=== PATIENT | male | born 1950 | race Caucasian/White ===

== ENCOUNTER 2016-05-01 09:25 | Day surgery (SDC) | payer OTHER, MEDICARE ==
[2016-04-24 14:23] VITALS: BMI 32.0
--- NOTE | 2016-04-24 15:02 | PAT Medication Instructions ---
Service Date Apr 24, 2016. Current Home Medication List Amlodipine (Norvasc), 10 MG PO QAM Atorvastatin (Lipitor), 40 MG PO HS Clonidine Hcl (Catapres), 0.2 MG PO TID Furosemide (Lasix), 20 MG PO QAM Insulin Glargine (Lantus Solostar), Unknown Dose SC QPM Insulin Human Lispro (Humalog Kwikpen) Medication Instructions For Your Scheduled Surgery - Hold the following medications the morning of surgery: Furosemide (Lasix), 20 MG PO QAM Insulin Human Lispro (Humalog Kwikpen) - Take the following medications the morning of surgery with a sip of water OTHERWISE NOTHING TO EAT OR DRINK AFTER MIDNIGHT: Clonidine Hcl (Catapres), 0.2 MG PO TID Amlodipine (Norvasc), 10 MG PO QAM - Take the following medications as scheduled the night before surgery: Insulin Glargine (Lantus Solostar), Unknown Dose SC QPM Clonidine Hcl (Catapres), 0.2 MG PO TID Atorvastatin (Lipitor), 40 MG PO HS If you have any questions please call us at [phone] or [phone] or [phone]
[2016-04-24 15:35] LABS: BASO % 0.3 %; BASO ABS # 0.02 K/uL (0-0.2); COMPLETE YES; EOS % 1.7 %; HEMATOCRIT 33.6 % (42-52); IG% 0.2 %; LYMPH % 29.9 %; LYMPH ABS # 1.91 K/uL (1.2-3.4); MEAN CELL VOLUME 81.8 fL (80-100); MEAN CORPUSCULAR HEMOGLOBIN 27.3 pg (25-34); MEAN CORPUSCULAR HGB CONC 33.3 g/dl (32-36); MONO % 5.6 %; NEUT % 62.3 %; PLATELET COUNT 192 K/uL (130-400); RED BLOOD COUNT 4.11 M/uL (4.7-6.1); WHITE BLOOD COUNT 6.38 K/uL (4.8-10.8)
--- NOTE | 2016-04-24 15:35 | DIAGNOSTIC IMAGING REPORT ---
CHEST 2 VIEWS ROUTINE CLINICAL HISTORY: Preoperative chest COMPARISON STUDY: No previous studies for comparison. FINDINGS: The heart is the upper limits of normal in size. There is no failure. There is no focal pulmonary consolidation. There are degenerative changes present within the dorsal spine with bridging anterior osteophytes.[ IMPRESSION: No active disease in the chest. Electronically signed by: Kar Weeks M.D. 04/24/2016 3:33 PM Dictated Date/Time: 04/24/2016 3:33 PM
[2016-04-24 16:07] LABS: BUN/CREATININE RATIO 21.7 (10-20); CALCIUM 9.1 mg/dl (8.5-10.1); POTASSIUM 5.2 mmol/L (3.5-5.1)
[~2016-05-01] VITALS: Ht 180.3 cm; Wt 106.3 kg
--- NOTE | 2016-05-01 08:25 | History and Physical ---
History & Physical CC: End stage renal disease HPI: Mr. Blue is a 65-year-old gentleman with end-stage renal disease. He is not on dialysis yet, but it is approaching GFR level where he may require dialysis in the near future. He is here for evaluation for a fistula. ALLERGIES: None known. MEDICATIONS: Amlodipine, atorvastatin, clonidine, furosemide, and Lantus insulin. PAST MEDICAL HISTORY: Positive for hypertension, diabetes and circulatory disease. PREVIOUS SURGERIES: None listed. FAMILY HISTORY: Positive for cancer. SOCIAL HISTORY: He does not smoke. He drinks occasionally. REVIEW OF SYSTEMS: Ten systems were reviewed. He did not have any positive findings other than occasional burning in his legs and poor wound healing. He also complained of numbness and tingling in his fingers of both hands. PHYSICAL EXAMINATION: The patient is awake, oriented x3. His blood pressure is 176/56 in the right, 178/58 in the left. Head and neck within normal limits. There are no carotid bruits. Lungs are clear. Heart regular rate and rhythm. Abdominal exam is benign. Vascular exam is his radials, carotids, and superficial temporal artery pulses are +2 bilaterally. Femorals are +2. Examination of the upper extremities shows the cephalic vein in the left arm which can be seen down to the wrist. Definitely just above the wrist this vein is usable for a fistula. At the wrist it is questionable. Neurologic exam is intact to motor and sensory function. IMPRESSION: Endstage renal disease. PLAN AND RECOMMENDATIONS: Patient is admitted for creation of a left distal forearm fistula. I have discussed the risks options and benefits of the procedure with the patient. The patient understands the risks options and benefits and agrees to the procedure.
[~2016-05-01 09:25] MED LIST: AMLO-114 PO; ATOR-24 PO; CEFAZOLIN 2000 MG/60 ML D5W IV SCH; CLON0.2T PO; FURO-85 PO; HMLIS; INSDGIPEN SC; SODIUM CHLORIDE 0.9% 1000ML 1,000 ML IV SCH
[2016-05-01 09:40] VITALS: BP 188/65; PULSE 55; TEMP 36.6; O2SAT 99; Ht 180.3 cm; Wt 106.3 kg
[2016-05-01 10:49] LABS: BUN/CREATININE RATIO 17.4 (10-20); CALCIUM 8.9 mg/dl (8.5-10.1); CREATININE 3.3 mg/dl (0.60-1.40)
--- NOTE | 2016-05-01 12:20 | History & Physical Bridge Note ---
H&P Re-Evaluation Bridge Note: I have examined the patient, reviewed the History & Physical and in the interval since the performance of the History & Physical I have noted the following changes of clinical significance: No changes noted
[2016-05-01] MEDS ORDERED: FENTANYL CITRATE INJ 50 MCG/1 ML 2 ML VIAL ONE (12:43)
[2016-05-01] MEDS ORDERED: PROPOFOL IV EMULSION 10 MG/ML 20 ML VIAL IV ONE (12:43)
[2016-05-01] MEDS ORDERED: LIDOCAINE HCL 2% 2 ML VIAL (20MG/ML) ONE (12:43)
[2016-05-01] MEDS ORDERED: MIDAZOLAM HCL 1 MG/ML 2ML VIAL ONE ×2 (12:43→13:00)
[2016-05-01] MEDS ORDERED: MIX: 0.5% BUPIVACAINE W/EPI 1:200,000+1%LIDO 50:50 INJ ONE (13:35)
[2016-05-01] MEDS ORDERED: HEPARIN SOD (PORCINE) 1000 UNIT/ML 10 ML VIAL FLUSH ONE (13:35)
--- NOTE | 2016-05-01 13:40 | [facility] Post Operative Brief Note ---
Immediate Operative Summary Operative Date May 01, 2016. Pre-Operative Diagnosis Endstage renal disease Post-Operative Diagnosis Endstage renal disease Procedure(s) Performed Left Distal Forearm Arteriovenous Fistula Creation Surgeon Dr. Jadon Edmonds Autocad Detailer Surgeon(s) Gabrielle Ospina PA-C Estimated Blood Loss 5ml Findings good thrill Specimens none per surgeon Anesthesia MAC Complication(s) None Disposition Recovery Room / PACU
[2016-05-01] MEDS ORDERED: OXYC-57 PO (13:41)
--- NOTE | 2016-05-01 13:43 | Discharge Instructions ---
Discharge Instructions Visit Reason for Visit: End Stage Renal Disease Discharge Discharge Diagnosis / Problem: End stage renal disease Discharge Goals Goal(s): Therapeutic intervention Activity Recommendations Activity Limitations: per Instructions/Follow-up section Anesthesia . Post Anesthesia Instructions: If you have had General Anesthesia or IV Sedation: * Do not drive today. * Resume driving when surgeon permits. * Do not make important decisions or sign legal documents today. * Call surgeon for: 1. Temperature elevations greater than 101 degrees F. 2. Uncontrollable pain. 3. Excessive bleeding. 4. Persistent nausea and vomiting. 5. Medication intolerance (nausea, vomiting or rash). * For nausea and vomiting use only clear liquids such as: tea, soda, bouillon until nausea subsides, then gradually increase diet as tolerated. * If you have any concerns or questions, call your surgeon's office. If physician is unavailable and it is an emergency, call 911 or go to the nearest emergency room. . Instructions / Follow-Up Instructions / Follow-Up Call [phone] to schedule a follow up appointment if one not already scheduled. ACTIVITY RECOMMENDATIONS: See Above SPECIAL CARE INSTRUCTIONS: Call your doctor if: * Temperature above 101 degrees * Pain not relieved by pain medicine ordered * There is increased drainage or redness from any incision * You have any unanswered questions or concerns. Diet Recommendations Recommended Home Diet: resume previous diet Procedures Procedures Performed: Left Distal Forearm Arteriovenous Fistula Creation Pending Studies Studies pending at discharge: no Medical Emergencies . Who to Call and When: Medical Emergencies: If at any time you feel your situation is an emergency, please call 911 immediately. . Non-Emergent Contact Non-Emergency issues call your: Surgeon . . "Provider Documentation" section prepared by Jadon Edmonds.
--- NOTE | 2016-05-01 13:56 | Progress Note ---
Progress Note I assisted Dr Edmonds with Rey Bleu's Left Distal Forearm Arteriovenous Fistula Creation on 05/01/16, d/t lack of resident availability.
--- NOTE | 2016-05-01 14:11 | Anesthesiology Progress Note ---
Anesthesia Post Op Note Date & Time May 01, 2016 at 14:11 Vital Signs Pain Intensity: 0 Vital Signs Past 12 Hours Date Time Temp Pulse Resp B/P Pulse Ox O2 Delivery O2 Flow Rate FiO2 05/01/16 14:05 52 16 147/64 98 Room Air 05/01/16 13:55 52 16 145/58 98 Room Air 05/01/16 13:52 36.9 53 16 137/58 97 Room Air 05/01/16 09:40 36.6 55 18 188/65 99 Room Air Notes Mental Status: alert / awake / arousable, participated in evaluation Pt Amnestic to Procedure: Yes Nausea / Vomiting: adequately controlled Pain: adequately controlled Airway Patency, RR, SpO2: stable & adequate BP & HR: stable & adequate Hydration State: stable & adequate Anesthetic Complications: no major complications apparent
[2016-05-01 14:15] VITALS: BP 154/61; PULSE 50; TEMP 36.8; O2SAT 98
--- NOTE | 2016-05-01 14:55 | OPERATIVE REPORT ---
DATE OF OPERATION: 05/01/2016 PREOPERATIVE DIAGNOSIS: End-stage renal disease. POSTOPERATIVE DIAGNOSIS: Same. PROCEDURE: Left mid forearm AV fistula creation. SURGEON: Dr. Edmonds. ASSEMBLER SEAT: Gabrielle Ospina PA-C. ANESTHETIC: MAC. PROCEDURE INDICATIONS: The patient is a 65-year-old gentleman with end-stage renal disease in need of an access. He has a cephalic vein in the left arm, which is good down at the mid portion. The midforearm AV fistula was recommended. He understood the risks, options and benefits and agreed to have this procedure. The patient was taken to the operating room and placed in supine position. After the left arm was prepped and draped in a sterile manner, local anesthetic was administered. A longitudinal incision was made over the cephalic vein. This was of good caliber down to the mid to distal third of the arm. This was freed up for the length of the incision. Side branches were divided. The distal end was divided and the proximal up to vein clamp. The radial artery was then identified. It was freed up for the length of the incision. After control was obtained, it was clamped proximally and distally. Longitudinal arteriotomy was then made. The vein was then beveled and end-to-side anastomosis was accomplished using a 6-0 Prolene suture in the usual vascular fashion. Prior to completing the closure, backbleeding and forward bleeding was allowed to occur. Final few sutures were then placed and securely tied. Clamps were removed. Excellent flow was felt through the fistula with a good thrill felt. Adequate hemostasis was then obtained. Once adequate hemostasis was noted, the wound was closed in the usual fashion using running 3-0 Vicryl for the subcutaneous layer and a running 4-0 subcuticular Vicryl suture for the skin edges. Dermabond was used for dressing. The patient left the operating room in good condition and tolerated the procedure well. Gabrielle Ospina assisted due to lack of resident availability. I attest to the content of the Intraoperative Record and any orders documented therein. Any exceptio ns are noted below.
== END 2016-05-01 15:20 | disposition home or self-care (01) ==
LOC: C.ACU 09:25
PROVIDERS: ATTEND Surgery Vascular Surgery
DX: N18.6 End stage renal disease (principal); I12.0 Hypertensive chronic kidney disease with stage 5 chronic kidney disease or end stage renal disease; I99.9 Unspecified disorder of circulatory system; Z80.8 Family history of malignant neoplasm of other organs or systems; E11.9 Type 2 diabetes mellitus without complications

== ENCOUNTER → 2016-05-03 | Outpatient (CLI) | payer OTHER, MEDICARE ==
[~2016-05-03] MED LIST changes: -CEFAZOLIN 2000 MG/60 ML D5W IV SCH; +OXYC-57 PO; -SODIUM CHLORIDE 0.9% 1000ML 1,000 ML IV SCH
[2016-05-03 17:34] LABS: HEMATOCRIT 31.7 % (42-52); MEAN CELL VOLUME 83.9 fL (80-100); MEAN CORPUSCULAR HEMOGLOBIN 27.5 pg (25-34); MEAN CORPUSCULAR HGB CONC 32.8 g/dl (32-36); MEAN PLATELET VOLUME 10.8 fL (7.4-10.4); PLATELET COUNT 185 K/uL (130-400); RED BLOOD COUNT 3.78 M/uL (4.7-6.1); WHITE BLOOD COUNT 6.25 K/uL (4.8-10.8)
[2016-05-03 18:19] LABS: BLOOD UREA NITROGEN 50 mg/dl (7-18); BUN/CREATININE RATIO 15.7 (10-20); CALCIUM 8.4 mg/dl (8.5-10.1); CARBON DIOXIDE 19 mmol/L (21-32); CHLORIDE 110 mmol/L (98-107); GLUCOSE 129 mg/dl (70-99); PHOSPHORUS 4.7 mg/dl (2.5-4.9); POTASSIUM 4.7 mmol/L (3.5-5.1); SODIUM 141 mmol/L (136-145)
== END | disposition home or self-care (01) ==
LOC: C.LABBFT 11:43
PROVIDERS: ATTEND Internal Medicine Nephrology
DX: I12.9 Hypertensive chronic kidney disease with stage 1 through stage 4 chronic kidney disease, or unspecified chronic kidney disease (principal); E55.9 Vitamin D deficiency, unspecified; N18.4 Chronic kidney disease, stage 4 (severe); R60.9 Edema, unspecified

== ENCOUNTER → 2016-06-26 | Outpatient (CLI) | payer OTHER, MEDICARE ==
[2016-06-26 12:40] LABS: HEMATOCRIT 32.5 % (42-52); MEAN CELL VOLUME 81.5 fL (80-100); MEAN CORPUSCULAR HEMOGLOBIN 26.8 pg (25-34); MEAN CORPUSCULAR HGB CONC 32.9 g/dl (32-36); MEAN PLATELET VOLUME 10.6 fL (7.4-10.4); PLATELET COUNT 195 K/uL (130-400); RED BLOOD COUNT 3.99 M/uL (4.7-6.1); WHITE BLOOD COUNT 5.82 K/uL (4.8-10.8)
[2016-06-26 12:59] LABS: BLOOD UREA NITROGEN 79 mg/dl (7-18); BUN/CREATININE RATIO 18.8 (10-20); CALCIUM 8.8 mg/dl (8.5-10.1); CARBON DIOXIDE 24 mmol/L (21-32); CHLORIDE 111 mmol/L (98-107); GLUCOSE 116 mg/dl (70-99); PHOSPHORUS 5.1 mg/dl (2.5-4.9); POTASSIUM 5.2 mmol/L (3.5-5.1); SODIUM 141 mmol/L (136-145)
[2016-06-26 13:01] LABS: ESTIMATED AVERAGE GLUCOSE 140 mg/dl; HA1C FLAG Normal (Normal)
[2016-06-26 17:40] LABS: URINE APPEARANCE CLEAR (CLEAR); URINE BILIRUBIN NEG (NEG); URINE COLOR YELLOW; URINE EPITHELIAL CELL AUTO >30 /lpf (0-5); URINE NITRITE NEG (NEG); URINE SPECIFIC GRAVITY 1.017 (1.000-1.030); UROBILINOGEN NEG (NEG)
[2016-06-26 17:54] LABS: MANUAL MICROSCOPIC REQUIRED? NO; REVIEW REQ? YES
[2016-06-26 18:08] LABS: URINE PROTIEN/CREAT RATIO 3.8 (0-0.2)
== END | disposition home or self-care (01) ==
LOC: C.LABBFT 10:48
PROVIDERS: ATTEND Internal Medicine Nephrology
DX: E11.22 Type 2 diabetes mellitus with diabetic chronic kidney disease (principal); I12.9 Hypertensive chronic kidney disease with stage 1 through stage 4 chronic kidney disease, or unspecified chronic kidney disease; E55.9 Vitamin D deficiency, unspecified; N18.4 Chronic kidney disease, stage 4 (severe); R60.9 Edema, unspecified

== ENCOUNTER → 2016-07-22 | Outpatient (CLI) | payer OTHER, MEDICARE ==
[2016-07-22 11:56] LABS: PATIENT HEIGHT 180.3 cm
[2016-07-22 17:38] LABS: HEMATOCRIT 32.8 % (42-52); MEAN CELL VOLUME 85.6 fL (80-100); MEAN CORPUSCULAR HEMOGLOBIN 27.9 pg (25-34); MEAN CORPUSCULAR HGB CONC 32.6 g/dl (32-36); MEAN PLATELET VOLUME 10.9 fL (7.4-10.4); PLATELET COUNT 211 K/uL (130-400); RED BLOOD COUNT 3.83 M/uL (4.7-6.1); WHITE BLOOD COUNT 5.95 K/uL (4.8-10.8)
[2016-07-22 17:53] LABS: URINE APPEARANCE CLEAR (CLEAR); URINE BILIRUBIN NEG (NEG); URINE COLOR YELLOW; URINE NITRITE NEG (NEG); URINE SPECIFIC GRAVITY 1.014 (1.000-1.030); UROBILINOGEN NEG (NEG)
[2016-07-22 17:58] LABS: MANUAL MICROSCOPIC REQUIRED? NO; REVIEW REQ? NO
[2016-07-22 18:50] LABS: BLOOD UREA NITROGEN 70 mg/dl (7-18); BUN/CREATININE RATIO 17.9 (10-20); CALCIUM 8.5 mg/dl (8.5-10.1); CARBON DIOXIDE 24 mmol/L (21-32); CHLORIDE 110 mmol/L (98-107); GLUCOSE 141 mg/dl (70-99); SODIUM 141 mmol/L (136-145)
[2016-07-22 19:02] LABS: BLOOD UREA NITROGEN 72 mg/dl (7-18); BUN/CREATININE RATIO 18.9 (10-20); CALCIUM 8.9 mg/dl (8.5-10.1); CARBON DIOXIDE 22 mmol/L (21-32); CHLORIDE 110 mmol/L (98-107); GLUCOSE 144 mg/dl (70-99); PHOSPHORUS 4.4 mg/dl (2.5-4.9); SODIUM 141 mmol/L (136-145)
[2016-07-22 20:11] LABS: HEPATITIS B AB NEG
[2016-07-22 20:18] LABS: CREATININE 3.9 mg/dl (0.6-1.4)
[2016-07-22 20:32] LABS: URINE TOTAL PROTEIN 259.4 mg/dl (0-11.9)
[2016-07-22 20:40] LABS: URINE TOTAL PROTEIN CALC 5966.2 mg/24 hr (0-149.1)
== END | disposition home or self-care (01) ==
LOC: C.LABBFT 11:41
PROVIDERS: ATTEND Internal Medicine Nephrology
DX: E55.9 Vitamin D deficiency, unspecified (principal); N18.4 Chronic kidney disease, stage 4 (severe); R60.9 Edema, unspecified; I12.9 Hypertensive chronic kidney disease with stage 1 through stage 4 chronic kidney disease, or unspecified chronic kidney disease

== ENCOUNTER → 2016-09-13 | Outpatient (CLI) | payer OTHER, MEDICARE ==
[2016-09-13 12:04] LABS: HEMATOCRIT 36.2 % (42-52); MEAN CELL VOLUME 85.4 fL (80-100); MEAN CORPUSCULAR HEMOGLOBIN 26.4 pg (25-34); MEAN CORPUSCULAR HGB CONC 30.9 g/dl (32-36); PLATELET COUNT 175 K/uL (130-400); RED BLOOD COUNT 4.24 M/uL (4.7-6.1); WHITE BLOOD COUNT 6.64 K/uL (4.8-10.8)
[2016-09-13 12:25] LABS: URINE APPEARANCE CLEAR (CLEAR); URINE BILIRUBIN NEG (NEG); URINE COLOR YELLOW; URINE EPITHELIAL CELL AUTO 20-30 /lpf (0-5); URINE NITRITE NEG (NEG); URINE SPECIFIC GRAVITY 1.018 (1.000-1.030); UROBILINOGEN NEG (NEG)
[2016-09-13 12:28] LABS: URINE PROTIEN/CREAT RATIO 3.4 (0-0.2); URINE TOTAL PROTEIN 263.7 mg/dl (0-11.9)
[2016-09-13 12:30] LABS: REVIEW REQ? YES
[2016-09-13 12:31] LABS: MANUAL MICROSCOPIC REQUIRED? NO
[2016-09-13 12:33] LABS: CALCIUM 8.8 mg/dl (8.5-10.1)
[2016-09-13 12:35] LABS: BLOOD UREA NITROGEN 63 mg/dl (7-18); BUN/CREATININE RATIO 19.1 (10-20); CARBON DIOXIDE 19 mmol/L (21-32); CHLORIDE 113 mmol/L (98-107); GLUCOSE 118 mg/dl (70-99); POTASSIUM 5.2 mmol/L (3.5-5.1); SODIUM 141 mmol/L (136-145)
[2016-09-13 12:36] LABS: PHOSPHORUS 4.6 mg/dl (2.5-4.9)
[2016-09-13 12:51] LABS: URINE PATH CASTS 0-3 GRANULAR CASTS /lpf (0)
== END | disposition home or self-care (01) ==
LOC: C.LABBFT 08:58
PROVIDERS: ATTEND Internal Medicine Nephrology
DX: I12.9 Hypertensive chronic kidney disease with stage 1 through stage 4 chronic kidney disease, or unspecified chronic kidney disease (principal); E55.9 Vitamin D deficiency, unspecified; R60.9 Edema, unspecified; N18.4 Chronic kidney disease, stage 4 (severe)

== ENCOUNTER → 2016-12-27 | Outpatient (CLI) | payer OTHER, MEDICARE ==
[~2016-12-27] MED LIST changes: -OXYC-57 PO
[2016-12-27 10:31] LABS: HEMATOCRIT 36.5 % (42-52); MEAN CELL VOLUME 85.7 fL (80-100); MEAN CORPUSCULAR HEMOGLOBIN 26.5 pg (25-34); MEAN PLATELET VOLUME 10.8 fL (7.4-10.4); PLATELET COUNT 187 K/uL (130-400); RED BLOOD COUNT 4.26 M/uL (4.7-6.1); WHITE BLOOD COUNT 6.18 K/uL (4.8-10.8)
[2016-12-27 10:42] LABS: ALT/SGPT 14 U/L (12-78); AST/SGOT 16 U/L (15-37); BLOOD UREA NITROGEN 58 mg/dl (7-18); CALCIUM 8.6 mg/dl (8.5-10.1); CARBON DIOXIDE 23 mmol/L (21-32); CHLORIDE 114 mmol/L (98-107); GLUCOSE 106 mg/dl (70-99); POTASSIUM 4.4 mmol/L (3.5-5.1); SODIUM 144 mmol/L (136-145)
[2016-12-27 10:45] LABS: ALB/GLOB RATIO 0.9 (0.9-2); ALKALINE PHOSPHATASE 98 U/L (45-117); CHOLESTEROL 139 mg/dl (0-200); CHOLESTEROL/HDL RATIO 3.4; HDL CHOLESTEROL 41 mg/dl; LDL CHOLESTEROL CALCULATED 80 mg/dl; TRIGLYCERIDES 90 mg/dl (0-150); VERY LOW DENSITY LIPOPROT CALC 18 mg/dl
[2016-12-27 10:56] LABS: ESTIMATED AVERAGE GLUCOSE 123 mg/dl; HA1C FLAG Normal (Normal)
== END | disposition home or self-care (01) ==
LOC: C.LAB1850 09:33
PROVIDERS: ATTEND Internal Medicine Nephrology
DX: E11.22 Type 2 diabetes mellitus with diabetic chronic kidney disease (principal); I12.9 Hypertensive chronic kidney disease with stage 1 through stage 4 chronic kidney disease, or unspecified chronic kidney disease; E55.9 Vitamin D deficiency, unspecified; N18.4 Chronic kidney disease, stage 4 (severe); R60.9 Edema, unspecified; E78.00 Pure hypercholesterolemia, unspecified; E53.8 Deficiency of other specified B group vitamins

== ENCOUNTER → 2017-03-26 | Outpatient (CLI) | payer OTHER, MEDICARE ==
[~2017-03-26] MED LIST changes: -AMLO-114 PO; +AMLO10TA3 PO; +ERGO500037 PO; -HMLIS; +HMLIS SQ; +LABE1TAB28 PO; +LISI-725 PO; +OXYC-90 PO
[2017-03-26 17:26] LABS: HEMATOCRIT 35.6 % (42-52); HEMOGLOBIN 11.3 g/dL (14.0-18.0); MEAN CELL VOLUME 86.2 fL (80-100); MEAN CORPUSCULAR HEMOGLOBIN 27.4 pg (25-34); MEAN CORPUSCULAR HGB CONC 31.7 g/dl (32-36); MEAN PLATELET VOLUME 11.6 fL (7.4-10.4); PLATELET COUNT 196 K/uL (130-400); RED CELL DISTRIBUTION WIDTH CV 14.3 % (11.5-14.5); WHITE BLOOD COUNT 6.04 K/uL (4.8-10.8)
[2017-03-26 17:37] LABS: ALBUMIN 3.3 gm/dl (3.4-5.0); BLOOD UREA NITROGEN 70 mg/dl (7-18); CALCIUM 8.5 mg/dl (8.5-10.1); CARBON DIOXIDE 21 mmol/L (21-32); CREATININE 3.81 mg/dl (0.60-1.40); GLUCOSE 148 mg/dl (70-99); POTASSIUM 4.6 mmol/L (3.5-5.1); SODIUM 143 mmol/L (136-145)
[2017-03-27 04:56] LABS: HEMOGLOBIN A1C 6.1 % (4.5-5.6)
== END | disposition home or self-care (01) ==
LOC: C.LABBFT 13:53
PROVIDERS: ATTEND Internal Medicine Nephrology
DX: I12.9 Hypertensive chronic kidney disease with stage 1 through stage 4 chronic kidney disease, or unspecified chronic kidney disease (principal); N18.4 Chronic kidney disease, stage 4 (severe); E55.9 Vitamin D deficiency, unspecified; R60.9 Edema, unspecified; E11.9 Type 2 diabetes mellitus without complications

== ENCOUNTER → 2017-03-28 | Outpatient (CLI) | payer OTHER, MEDICARE | END | disposition home or self-care (01) | LOC: C.LABBFT 14:04 | PROVIDERS: ATTEND Internal Medicine Nephrology | DX: R60.9 Edema, unspecified (principal); I12.9 Hypertensive chronic kidney disease with stage 1 through stage 4 chronic kidney disease, or unspecified chronic kidney disease; N18.4 Chronic kidney disease, stage 4 (severe); E55.9 Vitamin D deficiency, unspecified ==

== ENCOUNTER 2017-04-02 18:39 | Emergency (ER) | payer MEDICARE, OTHER ==
[~2017-04-02] VITALS: Ht 180.3 cm; Wt 102.9 kg
[~2017-04-02 18:39] MED LIST changes: -ERGO500037 PO; -LABE1TAB28 PO; -LISI-725 PO; -OXYC-90 PO
[2017-04-02 18:50] VITALS: TEMP 36.9; Ht 180.3 cm; Wt 102.9 kg
[2017-04-02] MEDS ORDERED: OXYCODONE HCL IR 5 MG TAB (IMMEDIATE RELEASE) PO STA (19:04)
--- NOTE | 2017-04-02 20:12 | EMERGENCY ROOM VISIT NOTE ---
ED Visit Note First contact with patient: 18:53 This Patient was discussed with the physician Machining Technician, FATMATA Esquivel. The pertinent historical and physical exam findings were confirmed. I agree with the studies ordered and with the interpretations of these studies. I agree with the disposition and care plan.
[2017-04-02] MEDS ORDERED: OXYCODONE IR HOME PACK PO ONE (20:15)
--- NOTE | 2017-04-02 20:15 | DIAGNOSTIC IMAGING REPORT ---
L SHOULDER MIN 2 VIEWS ROUTINE CLINICAL HISTORY: 66 years-old Male presenting with L shoulder pain. TECHNIQUE: Internal rotation, external rotation, and Grashey views of the left shoulder were obtained. COMPARISON: None. FINDINGS: Comminuted fracture of the surgical neck of the left humerus. This results in fragmentation of the greater tuberosity and potentially also the lesser tuberosity. There is impaction of the proximal metaphysis into the humeral head, which appears to largely remaining congruent at the glenohumeral joint. IMPRESSION: Comminuted impaction fracture of the surgical neck of the left humerus. Electronically signed by: Sylvester Galeano M.D. 04/02/2017 8:14 PM Dictated Date/Time: 04/02/2017 8:12 PM
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
[2017-04-02] MEDS ORDERED: OXYC-90 PO (20:25)
[2017-04-02 20:30] VITALS: BP 167/67; PULSE 52; O2SAT 97
[2017-07-22] MEDS ORDERED: LISI-725 PO (13:04)
[2017-07-22] MEDS ORDERED: ERGO500037 PO (13:07)
[2017-07-22] MEDS ORDERED: LABE1TAB28 PO ×2 (13:07→19:13)
[2017-07-24] MEDS ORDERED: LABE1TAB28 PO (08:03)
== END 2017-04-02 20:27 | disposition home or self-care (01) ==
LOC: C.EDB 18:40 → C.EDD 20:27
DX: S42.292A Other displaced fracture of upper end of left humerus, initial encounter for closed fracture (principal); V89.2XXA Person injured in unspecified motor-vehicle accident, traffic, initial encounter; Y92.410 Unspecified street and highway as the place of occurrence of the external cause; R03.0 Elevated blood-pressure reading, without diagnosis of hypertension

== ENCOUNTER → 2017-04-24 | Outpatient (CLI) | payer OTHER ==
[~2017-04-24] MED LIST changes: +AMLO-114 PO; -AMLO10TA3 PO; +HMLIS; -HMLIS SQ; +OXYC1TAB3 PO
--- NOTE | 2017-04-24 09:02 | DIAGNOSTIC IMAGING REPORT ---
L SHOULDER MIN 2 VIEWS CLINICAL HISTORY: 3-PART FRACTURE OF SURGICAL NECK OF LEFT HUMERUS COMPARISON: Left shoulder radiographs April 02, 2017. FINDINGS: Note is made of partial interval healing of the left humeral neck fracture which extends into the left humeral head. Fracture is impacted. Fracture impaction appears diminished since prior exam of April 02, 2017. Callus formation is noted. Fracture lines remain evident. Alignment of the left glenohumeral joint remains anatomic. Angulation at the level of the fracture is again noted. Alignment of the left acromioclavicular joint is anatomic. There is moderate to severe left AC joint arthrosis. IMPRESSION: Partial interval healing of the left humeral neck fracture since exam of April 02, 2017. Fracture impaction appears diminished since prior exam. Electronically signed by: Sukhi Bryant M.D. 04/24/2017 9:01 AM Dictated Date/Time: 04/24/2017 8:58 AM
== END | disposition home or self-care (01) ==
LOC: C.RDSM 08:50
PROVIDERS: ATTEND Physician Assistant
DX: S42.232D 3-part fracture of surgical neck of left humerus, subsequent encounter for fracture with routine healing (principal); X58.XXXD Exposure to other specified factors, subsequent encounter

== ENCOUNTER → 2017-05-14 | Outpatient (CLI) | payer OTHER, MEDICARE ==
--- NOTE | 2017-05-14 09:10 | DIAGNOSTIC IMAGING REPORT ---
L SHOULDER MIN 2 VIEWS CLINICAL HISTORY: 3-PART FRACTURE OF SURGICAL NECK OF LEFT HUMERUS COMPARISON: Shoulder radiographs April 02, 2017 and April 24, 2017. FINDINGS: Note is again made of a displaced impacted left humeral neck fracture which extends into the humeral head. Fracture alignment is unchanged since exam of April 24, 2017. Extensive callus formation is noted. Fracture line remains evident. Alignment of the left acromioclavicular and glenohumeral joints is anatomic. IMPRESSION: Partial interval healing of the left humeral neck fracture since previous exam. No change in alignment. Extensive callus formation. Electronically signed by: Sukhi Bryant M.D. 05/14/2017 9:08 AM Dictated Date/Time: 05/14/2017 9:03 AM
== END | disposition home or self-care (01) ==
LOC: C.RDSM 09:00
PROVIDERS: ATTEND Physician Assistant
DX: S42.232A 3-part fracture of surgical neck of left humerus, initial encounter for closed fracture (principal); X58.XXXA Exposure to other specified factors, initial encounter

== ENCOUNTER → 2017-06-13 | Outpatient (CLI) | payer OTHER, MEDICARE ==
[2017-06-13 12:50] LABS: HEMATOCRIT 29.6 % (42-52); HEMOGLOBIN 9.3 g/dL (14.0-18.0); MEAN CELL VOLUME 86.8 fL (80-100); MEAN CORPUSCULAR HEMOGLOBIN 27.3 pg (25-34); MEAN CORPUSCULAR HGB CONC 31.4 g/dl (32-36); MEAN PLATELET VOLUME 10.9 fL (7.4-10.4); PLATELET COUNT 173 K/uL (130-400); RED CELL DISTRIBUTION WIDTH CV 14.8 % (11.5-14.5); RED CELL DISTRIBUTION WIDTH SD 47.3 fL (36.4-46.3); WHITE BLOOD COUNT 6.04 K/uL (4.8-10.8)
[2017-06-13 14:02] LABS: BLOOD UREA NITROGEN 76 mg/dl (7-18); CALCIUM 8.5 mg/dl (8.5-10.1); CARBON DIOXIDE 21 mmol/L (21-32); CREATININE 3.73 mg/dl (0.60-1.40); GLUCOSE 109 mg/dl (70-99); POTASSIUM 5.3 mmol/L (3.5-5.1); SODIUM 141 mmol/L (136-145)
== END | disposition home or self-care (01) ==
LOC: C.LABBFT 10:45
PROVIDERS: ATTEND Internal Medicine Nephrology
DX: R60.9 Edema, unspecified (principal); N18.4 Chronic kidney disease, stage 4 (severe); I12.9 Hypertensive chronic kidney disease with stage 1 through stage 4 chronic kidney disease, or unspecified chronic kidney disease; E55.9 Vitamin D deficiency, unspecified; E11.9 Type 2 diabetes mellitus without complications

== ENCOUNTER → 2017-06-25 | Outpatient (CLI) | payer OTHER, MEDICARE ==
--- NOTE | 2017-06-25 10:14 | DIAGNOSTIC IMAGING REPORT ---
LEFT SHOULDER 4 VIEWS CLINICAL HISTORY: Left shoulder pain. Healing fracture. FINDINGS: 4 views of the left shoulder are compared to studies dated 05/14/2017 and 04/02/2017. The skeletal structures are osteopenic. There is a healing impacted and comminuted fracture through the left humeral head and neck. This is similar appearance to the 05/14/2017 examination. Residual fracture lucency is identified. No new fracture is seen. Mild inferior subluxation of the humeral head is similar to previous. Productive degenerative change is noted at acromioclavicular joint. The visualized left upper lobe lung parenchyma appears clear. IMPRESSION: No significant change in the appearance of a healing left humeral head and neck fracture as above as compared to 05/14/2017. Electronically signed by: Federico Basilio M.D. 06/25/2017 10:12 AM Dictated Date/Time: 06/25/2017 10:11 AM
== END | disposition home or self-care (01) ==
LOC: C.RDSM 15:53
PROVIDERS: ATTEND Physician Assistant
DX: S42.232A 3-part fracture of surgical neck of left humerus, initial encounter for closed fracture (principal); X58.XXXA Exposure to other specified factors, initial encounter

== ENCOUNTER 2017-07-22 16:18 | Emergency (ER) | payer OTHER, MEDICARE ==
[~2017-07-22] VITALS: Ht 177.8 cm; Wt 5.0 kg
[~2017-07-22 16:18] MED LIST changes: +ERGO500037 PO; -HMLIS; +HMLIS SQ; +LABE1TAB28 PO; +LISI-725 PO
[2017-07-22 16:39] VITALS: TEMP 36.6; Ht 177.8 cm; Wt 5.0 kg
[2017-07-22] MEDS ORDERED: LABE1TAB28 PO (19:13)
--- NOTE | 2017-07-22 19:13 | EMERGENCY ROOM VISIT NOTE ---
History Report prepared by Luly: Shawn Gomez Under the Supervision of: Dr. Ángel Morrison M.D. First contact with patient: 18:05 Chief Complaint: HYPERTENSION Stated Complaint: ELEVATED BP History of Present Illness The patient is a 66 year old white male with a past medical history of ESRD, HTN , Type 2 diabetes who presents to the ED with a cc of constant hypertension. He was seen at the [facility] for an iron infusion today and was found to be hypertensive. His systolic blood pressure was found to be 210. Patient was given anti-hypertensive medication to lower his blood pressure at the [facility] which has helped. He denies any missed doses of his blood pressure medication. Negative: headache, chest pain, nausea, or vomiting. Patient had a fistula placed recently, and is scheduled to start dialysis soon. Source of History: patient Onset: Today Quality: other (hypertension) Timing: constant Modifying Factors (Relieving): other (anti-hypertensive medications) Associated Symptoms: No headache, No chest pain, No nausea, No vomiting Review of Systems See HPI for pertinent positives and negatives. A total of ten systems were reviewed and were otherwise negative. Past Medical & Surgical Medical Problems: (1) End Stage Renal Disease (2) Essential (Primary) Hypertension (3) Presence of arteriovenous fistula for hemodialysis, primary (4) Type 2 Diabetes Mellitus W Diabetic Chronic Kidney Disease (5) Vitamin D Deficiency, Unspecified Family History FH: cancer FH: hypertension FH: kidney disease Social History Smoking Status: Former Smoker Alcohol Use: none Marital Status: Occupation Status: retired Current/Historical Medications Scheduled Atorvastatin (Lipitor), 40 MG PO HS Clonidine Hcl (Catapres), 0.4 MG PO TID Ergocalciferol (Vitamin D 82830 Unit), 1 CAP PO WK Furosemide (Lasix), 40 MG PO QAM Insulin Glargine (Lantus Solostar), 10 UNITS SC QAM Insulin Human Lispro (Humalog Kwikpen), 6 UNITS SQ QDD Labetalol (Normodyne), 100 MG PO Q12 Lisinopril (Zestril), 20 MG PO BID Allergies Coded Allergies: Amlodipine (Unverified Adverse Reaction, Severe, FLU SYMPTONS, 07/22/17) Physical Exam Vital Signs Date Time Temp Pulse Resp B/P (MAP) Pulse Ox O2 Delivery O2 Flow Rate FiO2 4/24/18 18:51 78 18 188/72 98 Room Air 07/22/17 18:07 58 18 167/69 98 Room Air 07/22/17 16:39 36.6 47 20 210/76 100 Room Air Physical Exam GENERAL: Awake, alert, well-appearing, NAD. Wearing glasses. HENT: Normocephalic, atraumatic. EYES: Normal conjunctiva. Sclera non-icteric. PERRL. No anisocoria. NECK: Supple. No nuchal rigidity. FROM. RESPIRATORY: CTAB, no rhonchi, wheezing, crackles CARDIAC: RRR, no MRG ABDOMEN: Soft, NTND, BS+ MSK: No chest wall TTP, no LE edema. AV fistula to the left distal forearm. Palpable thrill. NEURO: GCS 15, CN 2-12 intact, moves all 4s on command SKIN: No rash or jaundice noted. Actinic keratoses over the chest and back. Medical Decision & Procedures ED Course 1818: The patient was evaluated in room A9B. A complete history and physical exam was performed. 1857: I reevaluated the patient. Discussed results and discharge instructions: he verbalized understanding and agreement. The patient is ready for discharge. Medical Decision Nursing notes reviewed. Ancillary studies and prior records reviewed. The patient is a 66 year old white male with a past medical history of ESRD, HTN , Type 2 diabetes who presents to the ED with a cc of constant hypertension. Differential diagnosis: Etiologies such as benign hypertension, hypertensive emergency, cardiovascular pathology, pheochromocytoma, electrolyte abnormality, renal disease, endorgan damage, as well as others were entertained. Patient was seen and evaluated the bedside. Patient was referred from the cancer center status post iron transfusion as the patient had a symptomatically hypertension. Patient denies any chest pain, headache, shortness of breath, lower extremity swelling. Patient is a history of CKD with an AV fistula in left upper extremity which is patent but has not been used as he has not required it at this time. The patient is on labetalol, lisinopril, and clonidine. Patient states he has not missed any of these medications. Patient denies any alcohol, tobacco, or drug use. Given the patient is asymptomatic and his blood pressure is currently 160 systolic I do not believe he requires further evaluation or treatment at this time. I did discuss the patient's medication list with the pharmacist to recommend going up on his labetalol. Patient should be able to tolerate this. This is recommended to 200 mg twice daily. Patient does have the ability to take his pulse at home. He was instructed to take his pulse prior to taking the labetalol and that if it was less than 60 not to take it. Patient was deemed suitable for outpatient follow-up and treatment at this time. Patient was given strict follow-up, discharge, and return precautions. All questions were answered. Patient was deemed suitable for outpatient follow-up at this time. Patient agreed with the plan of care and was safely discharged home. Medication Reconcilliation Current Medication List: was personally reviewed by me Blood Pressure Screening Patient's blood pressure: Elevated blood pressure Blood pressure disposition: Referred to PCP Impression Primary Impression: HTN (hypertension) Scribe Attestation The scribe's documentation has been prepared under my direction and personally reviewed by me in its entirety. I confirm that the note above accurately reflects all work, treatment, procedures, and medical decision making performed by me. Departure Information Dispostion Home / Self-Care Prescriptions Labetalol (Normodyne) 200 Mg Tab 200 MG PO BID for 30 Days, #60 TAB Prov: Ángel Morrison M.D. 07/22/17 Referrals Miguel Yang M.D. (PCP) Patient Instructions Hypertension Control, Hypertension Dc, Hypertension Kidney Disease, My [facility] Additional Instructions Please return to the emergency department if you have worsening or recurrent symptoms not amenable to at-home treatment. Please call for a follow-up appointment with her primary care physician. Please take your medications as prescribed. If you have other concerns and/or complaints please feel free to also call your primary care physician's office or return the ED for further evaluation, management, and treatment. Please take your labetalol at 200 mg twice daily instead of 100 mg twice daily. Please make sure to take your pulse prior to taking this medication. If it is less then 60 bpm please do not take the medication. Please follow-up with your PCP as well as your chiropractic doctor for further management of your blood pressure. If you do have recurrent blood pressure issues and he knows that you have things like headache, chest pain, and/or shortness of breath please return for further evaluation and treatment. You have been examined and treated today on an emergency basis only. This is not a substitute for, or an effort to provide, complete comprehensive medical care. It is impossible to recognize and treat all injuries or illnesses in a single emergency department visit. It is therefore important that you follow up closely with [facility], your PCP, and/or your specialist(s). Call as soon as possible for an appointment. Thank you for your time and consideration. I look forward to speaking with you again soon. Please don't hesitate to call us if you have any questions. Problem Qualifiers Primary Impression: HTN (hypertension) Hypertension type: unspecified Qualified Codes: I10 - Essential (primary) hypertension
[2017-07-22 19:30] VITALS: BP 174/66; PULSE 53; O2SAT 100
[2017-07-24] MEDS ORDERED: LABE1TAB28 PO (08:03)
== END 2017-07-22 19:31 | disposition home or self-care (01) ==
LOC: C.EDB 16:19 → C.EDA 19:31
DX: I10 Essential (primary) hypertension (principal); I12.9 Hypertensive chronic kidney disease with stage 1 through stage 4 chronic kidney disease, or unspecified chronic kidney disease; N18.4 Chronic kidney disease, stage 4 (severe); E11.22 Type 2 diabetes mellitus with diabetic chronic kidney disease; Z87.891 Personal history of nicotine dependence; Z79.4 Long term (current) use of insulin; Z79.899 Other long term (current) drug therapy

== ENCOUNTER 2020-10-17 04:29 | Inpatient (IN) ==
--- NOTE | 2020-10-17 04:46 | Emergency Department Note ---
Impression & Plan Forearm fractures, both bones, closed, Fall ED Provider Note Name: JENIFFER JUNIOR Age: 70 Sex: M Arrives Via: Family Vehicle Informant: Patient ED Provider: Jamie Bocanegra MD Chief Complaint: arm injury Impression: See Above Medical Decision Makin yr old male with history DMII, HTN, HLP, ESRD on Dialysis arrives after mechanical trip and fall at home landing against stairs. No head injury and denies headache, neck pain, neuro deficits. Not on any blood thinners. He has deformity left forearm which is also same side as his fistula. There are multiple skin tears around the arm though non over fistula nor are they open fractures. Fistula still with thrill. Large hematoma over ulnar aspect left forearm, no pulsation nor thrill associated with hematoma. Patient otherwise stable. Labs obtained and IV pain medications given. Reviewed with Dr Cormier who notes that fracture will require surgery. Discussed with Vascular surgeon Dr Edmonds who feels that attempting dialysis with fistula if possible and monitor for worsening swelling of forearm. Dr Ocampo will bring in from hospitalist side of things to manage further. Prior Medical Record and Triage/Nursing Notes reviewed by Me Additional history obtained from chart Differentials:Fracture, dislocation, contusion, intra-abdominal, pneumothorax, intrathoracic, intracranial, neurologic, compartment syndrome, rhabdomyolysis, as well as other pathologies. amongst other pathologies. Vital Signs: reviewed and remarkable for no significant abnormalities Interventions: saline lock, fentanyl 50mcg iv, dilaudid 1mg iv Labs:Reviewed and remarkable for renal failure Imaging:X ray results are stated below per my interpretation: Chest: 1 view: No infiltrate, no effusion, normal cardiac border. Forearm: 2 view: Both bone mid shaft forearm fracture left arm with displaced radius Consults:Dr Edmonds vascular surgery, Dr Cormier [facility], Dr Ocampo [place] Hospitalist Plan: Disposition:Hospitalization. Condition: Good History of Present Illness:70 yr old male arrives for evaluation of left forearm injury. Patient had gotten up to walk his dog this morning prior to dialysis and was tripped up as he walked outside. Fell against the stairs of his hot tub hitting forearm off it. No head injury, headache, neck pain nor other injuries. Sustained lacerations and swelling to forearm. No shoulder, elbow nor wrist pain. Moderate swelling since this occurred. No blood thinner use. Movement makes pain worse, rest makes better. No medications prior to arrival. Declines medications currently. Tetanus vaccination up to date. ROS: See above HPI for pertinent positives & negatives. A total of 10 systems reviewed and were otherwise negative. Past Medical History:See Below Past Surgical History:See Below Family History:See Below Social History:See Below Home Medications:See Below Allergies:See Below Vitals:Blood Pressure: 157/69, Pulse 66, RR 20, T 36.3C, O2 95% on RA Physical Exam: GENERAL: Patient is well appearing and in minimal distress. EYES: No scleral icterus, unremarkable pupils. ENT: Mucous membranes moist, no nasal congestion. NECK: No masses appreciated, nomeningismus, trachea is midline. RESPIRATORY: No dyspnea. Clear to auscultation and equal bilaterally. No wheeze, no rhonchi. CARDIOVASCULAR: Regular rate and rhythm.No murmurs, rubs, gallops appreciated. GASTROINTESTINAL: Abdomen soft, non-tender, no peritonitis.Bowel sounds positive.No masses appreciated. BACK: No midline tenderness, no CVA tenderness EXTREMITIES: Multiple areas of avulsions/skin tears left arm, primarily lateral forearm and distal humerus. Large swelling mid left arm ulna area with large hematoma. Medial left forearm dialysis shunt with good thrill. No pulsations in swelling over ulnar side of forearm. Otherwise normal motion all extremities, no cyanosis, no edema. NEUROLOGIC: Alert and oriented, no acute motor or sensory deficits, no focal weakness, cranial nerves grossly intact. SKIN: No rash, no jaundice, no diaphoresis. PSYCH: Appropriate GCS: 15 ED Course: Times/Reassessments: Improvement in pain with iv meds, agreeable to hospitalization Jamie Bocanegra MD Past Med/Surg History Medical History (Updated 10/17/20 @ 06:04 by Jamie Bocanegra MD) Diabetes type 2, controlled ESRD (end stage renal disease) on dialysis Hyperlipidemia Hypertension Surgical History History of surgery on arm History of tooth extraction Family History Mother Cancer Father Stomach cancer Esophagus cancer Cancer Cancer of bowel Sister Kidney stone Social History Smoking Status: Never smoker Hx Alcohol Use: Yes Preferred Language: Setswana marital status: current occupational status: retired Feels Safe at Home: Yes Allergies Allergies Allergy/AdvReac Type Severity Reaction Status Date / Time amlodipine AdvReac Severe FLU Unverified 08/17/20 15:33 [facility] Meds Home Medications Medication Instructions Recorded Confirmed atorvastatin 40 mg tablet (Lipitor) 40 mg PO HS 08/17/20 10/17/20 calcium acetate(phosphat bind) 667 667 mg PO DAILY 08/17/20 10/17/20 mg capsule furosemide 40 mg tablet 40 mg PO DAILY 08/17/20 10/17/20 lidocaine-prilocaine 2.5 %-2.5 % 1 applic TOPICAL UD 08/17/20 10/17/20 topical cream vit B complx, C-iron 8 mg-folic 1 tab PO DAILY 08/17/20 10/17/20 acid 800 mcg-D3 1,000 unit-zinc tablet (ProRenal) Results & Data (ED) Vital Signs Vital Signs - 24 hr 10/17/20 04:32 10/17/20 05:42 10/17/20 06:00 Temperature 36.3 C L Temperature Source Temporal Artery Scan Pulse Rate 66 64 64 Pulse Rate [Right Finger] Pulse Rate from SpO2 Sensor 64 62 Pulse Rhythm Regular Pulse Strength Normal Respiratory Rate 20 Respiratory Effort / Characteristics Non-Labored Spontaneous Respiratory Depth Normal Respiratory Pattern Regular Blood Pressure 157/69 H 174/72 H 163/70 H Blood Pressure [Right Arm] Blood Pressure Mean 98 106 101 Blood Pressure Mean [Right Arm] Blood Pressure Position Sitting Blood Pressure Position [Right Arm] Pulse Oximetry 95 96 93 Oxygen Delivery Method Room Air Sepsis Recent Fever Within 48 Hours No Sepsis New/Unexplained Change in Mental Status N/A Sepsis Action Taken by Nursing No Action Required 10/17/20 06:19 10/17/20 06:30 10/17/20 07:00 Temperature Temperature Source Pulse Rate 63 67 Pulse Rate [Right Finger] 66 Pulse Rate from SpO2 Sensor 60 62 Pulse Rhythm Pulse Strength Respiratory Rate 22 23 Respiratory Effort / Characteristics Non-Labored Spontaneous Respiratory Depth Normal Respiratory Pattern Regular Blood Pressure 153/68 H 165/66 H Blood Pressure [Right Arm] 163/70 H Blood Pressure Mean 96 99 Blood Pressure Mean [Right Arm] 101 Blood Pressure Position Blood Pressure Position [Right Arm] Lying Pulse Oximetry 96 90 94 Oxygen Delivery Method Room Air Sepsis Recent Fever Within 48 Hours Sepsis New/Unexplained Change in Mental Status Sepsis Action Taken by Nursing Laboratory Data Result diagrams: 10/17/20 05:26 10/17/20 05:26 Lab Results 10/17/20 10/17/20 10/17/20 Range/Units 05:25 05:25 05:26 WBC (4.8-10.8) K/uL RBC (4.7-6.1) M/uL Hgb (14.0-18.0) g/dL Hct (42-52) % MCV (80-100) fL MCH (25-34) pg MCHC (32-36) g/dL RDW Std Deviation (36.4-46.3) fL RDW Coeff of Mukul (11.5-14.5) % Plt Count (130-400) K/uL MPV (7.4-10.4) fL Immature Gran % (Auto) % Neut % (Auto) % Lymph % (Auto) % Rich % (Auto) % Eos % (Auto) % Baso % (Auto) % Neut # (Auto) (1.4-6.5) K/uL Lymph # (Auto) (1.2-3.4) K/uL Rich # (Auto) (0.11-0.59) K/uL Eos # (Auto) (0-0.5) K/uL Baso # (Auto) (0-0.2) K/uL Immature Gran # (Auto) (0.00-0.02) K/uL PT 10.2 (9.0-12.0) Seconds INR 1.0 (0.9-1.1) APTT 23.9 (21.0-31.0) Seconds PTT Ratio 0.9 Sodium (136-145) mmol/L Potassium (3.5-5.1) mmol/L Chloride (98-107) mmol/L Carbon Dioxide (21-32) mmol/L Anion Gap (3-11) BUN (7-18) mg/dl Creatinine (0.6-1.4) mg/dl Est Cr Clr Drug Dosing ml/min Est GFR ( Amer) ml/min Est GFR (Non-Af Amer) ml/min BUN/Creatinine Ratio (10-20) Glucose (70-99) mg/dl Calcium (8.5-10.1) mg/dl COVID-19 Eval Order Covid19 at [facility] SARS-CoV-2 (PCR) NEGATIVE (Negative) 10/17/20 10/17/20 Range/Units 05:26 05:26 WBC 9.17 (4.8-10.8) K/uL RBC 3.83 L (4.7-6.1) M/uL Hgb 11.8 L (14.0-18.0) g/dL Hct 36.4 L (42-52) % MCV 95.0 (80-100) fL MCH 30.8 (25-34) pg MCHC 32.4 (32-36) g/dL RDW Std Deviation 46.0 (36.4-46.3) fL RDW Coeff of Mukul 13.3 (11.5-14.5) % Plt Count 192 (130-400) K/uL MPV 10.2 (7.4-10.4) fL Immature Gran % (Auto) 0.2 % Neut % (Auto) 80.7 % Lymph % (Auto) 12.5 % Rich % (Auto) 5.6 % Eos % (Auto) 0.8 % Baso % (Auto) 0.2 % Neut # (Auto) 7.40 H (1.4-6.5) K/uL Lymph # (Auto) 1.15 L (1.2-3.4) K/uL Rich # (Auto) 0.51 (0.11-0.59) K/uL Eos # (Auto) 0.07 (0-0.5) K/uL Baso # (Auto) 0.02 (0-0.2) K/uL Immature Gran # (Auto) 0.02 (0.00-0.02) K/uL PT (9.0-12.0) Seconds INR (0.9-1.1) APTT (21.0-31.0) Seconds PTT Ratio Sodium 141 (136-145) mmol/L Potassium 4.3 (3.5-5.1) mmol/L Chloride 104 (98-107) mmol/L Carbon Dioxide 32 (21-32) mmol/L Anion Gap 5.0 (3-11) BUN 81 H (7-18) mg/dl Creatinine 5.11 H* (0.6-1.4) mg/dl Est Cr Clr Drug Dosing 16.8 ml/min Est GFR ( Amer) 12.2 ml/min Est GFR (Non-Af Amer) 10.6 ml/min BUN/Creatinine Ratio 15.8 (10-20) Glucose 236 H (70-99) mg/dl Calcium 8.9 (8.5-10.1) mg/dl COVID-19 Eval Order SARS-CoV-2 (PCR) (Negative) Administered Medications Discontinued Medications Fentanyl Citrate (Fentanyl Citrate 100 Mcg/2 Ml Vial) 50 mcg IV NOW STA Stop: 10/17/20 05:13 Last Admin: 10/17/20 05:28 Dose: 50 mcg Documented by: [id number] Hydromorphone HCl (Hydromorphone Inj 1 Mg/Ml Syringe) 1 mg IV NOW STA Stop: 10/17/20 06:05 Last Admin: 10/17/20 06:17 Dose: 1 mg Documented by: [id number] Ondansetron HCl (Ondansetron Inj 2 Mg/Ml 2 Ml Vial) 4 mg IV NOW STA Stop: 10/17/20 05:13 Last Admin: 10/17/20 05:28 Dose: 4 mg Documented by: [id number] Imaging Data Radiologist's Impression: Forearm X-Ray 10/17/20 04:42 XR forearm LT 2V CLINICAL HISTORY: fall, left forearm injury COMPARISON: None FINDINGS: Left forearm soft tissue swelling is noted. There is vascular calcification and soft tissue calcifications which are chronic. Note is made of an acute displaced fracture of the midshaft of the left radius. Fracture is displaced 1.3 cm. A few small bone fragments are present. There is also an acute nondisplaced fracture the midshaft of the left ulna. Spurring of the olecranon at the insertion of triceps is noted. IMPRESSION: 1. Acute displaced midshaft fracture of the left radius. 2. Acute nondisplaced midshaft fracture of the left ulna. 3. Left forearm soft tissue swelling. ACT 112: Negative or not required by law. Electronically signed by: Sukhi Bryant M.D. 10/17/2020 6:39 AM Chest X-Ray 10/17/20 05:20 XR chest 1V portable CLINICAL HISTORY: pre-op COMPARISON STUDY: Chest radiograph August 17, 2020. FINDINGS: Lung volumes are normal. There is no pneumothorax or pleural effusion. Elevation of the right hemidiaphragm is unchanged. Note is made of moderate cardiomegaly without evidence for pulmonary edema. Left basilar opacities likely artifactual. The appearance of the chest is unchanged. IMPRESSION: No acute cardiopulmonary findings. Cardiomegaly. ACT 112: Negative or not required by law. Electronically signed by: Sukhi Bryant M.D. 10/17/2020 6:45 AM Discharge Plan Visit Data Chief Complaint: Arm Pain Stated Complaint: FELL, ARM PAIN, LACERATION ED Provider: Jamie Bocanegra Discharge Problem: Forearm fractures, both bones, closed, Fall Forms Stand Alone Forms: [facility] Prescriptions Prescriptions: No Action ProRenal 8 mg iron-800 mcg-1,000 unit tablet 1 tab PO DAILY RF: 0 furosemide 40 mg tablet 40 mg PO DAILY RF: 0 atorvastatin [Lipitor] 40 mg tablet 40 mg PO HS RF: 0 lidocaine-prilocaine 2.5-2.5 % cream 1 applic topical UD RF: 0 calcium acetate(phosphat bind) 667 mg capsule 667 mg PO DAILY RF: 0 Referrals Referrals: Eloisa Barton CRNP [Primary Care Provider] - Discharge Problem: Forearm fractures, both bones, closed Qualifiers: Encounter type: initial encounter Laterality: left Qualified Code(s): S52.92XA - Unspecified fracture of left forearm, initial encounter for closed fracture Fall Qualifiers: Encounter type: initial encounter Qualified Code(s): W19.XXXA - Unspecified fall, initial encounter
[2020-10-17] MEDS ORDERED: ONDANSETRON INJ 2 MG/ML 2 ML VIAL IV STA (05:12)
[2020-10-17] MEDS ORDERED: fentaNYL citrate 100 MCG/2 ML VIAL IV STA (05:12)
[2020-10-17 05:38] LABS: Basophils # (auto) 0.02 K/uL (0-0.2); Basophils % (auto) 0.2 %; Eosinophils # (auto) 0.07 K/uL (0-0.5); Eosinophils % (auto) 0.8 %; Hematocrit (blood only) 36.4 % (42-52); Hemoglobin 11.8 g/dL (14.0-18.0); Immature Granulocytes # (auto) 0.02 K/uL (0.00-0.02); Immature Granulocytes % (auto) 0.2 %; Lymphocytes # (auto) 1.15 K/uL (1.2-3.4); Lymphocytes % (auto) 12.5 %; Mean Corpuscular Hemoglobin 30.8 pg (25-34); Mean Corpuscular Hgb Conc 32.4 g/dL (32-36); Mean Platelet Volume 10.2 fL (7.4-10.4); Monocytes # (auto) 0.51 K/uL (0.11-0.59); Monocytes % (auto) 5.6 %; Neutrophils % (auto) 80.7 %; Platelet Count 192 K/uL (130-400); RDW Coefficient of Variation 13.3 % (11.5-14.5); Red Blood Count 3.83 M/uL (4.7-6.1); White Blood Count 9.17 K/uL (4.8-10.8)
[2020-10-17 05:54] LABS: Partial Thromboplastin Ratio 0.9; Partial Thromboplastin Time 23.9 Seconds (21.0-31.0); Prothrombin Time 10.2 Seconds (9.0-12.0)
[2020-10-17] MEDS ORDERED: HYDROmorphone INJ 1 MG/ML SYRINGE IV STA (06:04)
[2020-10-17 06:15] LABS: BUN Creatinine Ratio 15.8 (10-20); Calcium 8.9 mg/dl (8.5-10.1); Creatinine Clr Calc Pharmacy 16.8 ml/min; Est GFR (African American) 12.2 ml/min; Est GFR (Non-African American) 10.6 ml/min; Potassium 4.3 mmol/L (3.5-5.1)
--- NOTE | 2020-10-17 06:41 | XRay Report ---
XR forearm LT 2V CLINICAL HISTORY: fall, left forearm injury COMPARISON: None FINDINGS: Left forearm soft tissue swelling is noted. There is vascular calcification and soft tissu e calcifications which are chronic. Note is made of an acute displaced fracture of the midshaft of th e left radius. Fracture is displaced 1.3 cm. A few small bone fragments are present. There is also an acute nondisplaced fracture the midshaft of the left ulna. Spurring of the olecranon at the insertio n of triceps is noted. IMPRESSION: 1. Acute displaced midshaft fracture of the left radius. 2. Acute nondisplaced midshaft fracture of the left ulna. 3. Left forearm soft tissue swelling. ACT 112: Negative or not required by law. Electronically signed by: Sukhi Bryant M.D. 10/17/2020 6:39 AM
--- NOTE | 2020-10-17 06:46 | XRay Report ---
XR chest 1V portable CLINICAL HISTORY: pre-op COMPARISON STUDY: Chest radiograph August 17, 2020. FINDINGS: Lung volumes are normal. There is no pneumothorax or pleural effusion. Elevation of the rig ht hemidiaphragm is unchanged. Note is made of moderate cardiomegaly without evidence for pulmonary e jefferson. Left basilar opacities likely artifactual. The appearance of the chest is unchanged. IMPRESSION: No acute cardiopulmonary findings. Cardiomegaly. ACT 112: Negative or not required by law. Electronically signed by: Sukhi Bryant M.D. 10/17/2020 6:45 AM
--- NOTE | 2020-10-17 08:59 | History & Physical Report ---
Date of Service October 17, 2020 Assessment & Plan (1) Forearm fractures, both bones, closed: Plan: admit to med tele Tylenol, Oxycodone PRN for pain control Hep SC for DVT prophylaxis consult orthopedics and vascular surgery to plan for fixing fracture (2) Fall: Plan: mechanical fall, tripped over dog, no concerns for syncope (3) End stage renal disease: Plan: follows with Dr. Mcdowell consult placed and spoke with him in the ED has good thrill and bruit, should be able to access fistula today for HD if fistula does not function then can place temp HD catheter Cr 5, K is normal, slightly volume overloaded but breathing well on room air, lungs clear (4) Diabetic nephropathy associated with type 2 diabetes mellitus: Plan: diabetic diet Novolog SS consult nephrology for HD orders (5) Dyslipidemia: (6) Essential (primary) hypertension: Plan: only takes Lasix according to MAR will check to see if he is on any other anti-hypertensives History of Present Illness Chief Complaint: My arm hurts Primary Care Provider: MARIA ELENA Lopez 70 yo male with history of ESRD on HD Fri, presented to the ED early this morning after he tripped over his dog early, around 430am. He fell on his left side, he could not recall if his left arm was outstretched or if it was tucked underneath him. He had immediate pain in left forearm, felt like his arm was broken, he came to the ED for evaluation. Prior to this morning he was in his usual state of health. He has been tolerating HD, does not miss sessions, his weight has been stable, no chest pain, no dyspnea. He eats well, is moving his bowels regularly, still makes a little urine with use of Lasix in the morning. He has not had any recent signs of infection, no fever/chills, no cough. In the ED his BP was elevated but no fever, HR and saturations stable. X-ray of the left fore arm shows acute displaced midshaft fracture of radius and acute nondisplaced midshaft fracture of ulna. CXR normal. WBC normal, Hb 11.8, Cr 5.11 and K normal. ED spoke with orthopedics, vascular surgery for plan. Hospitalist requested for admission. Allergies Allergy/AdvReac Type Severity Reaction Status Date / Time amlodipine AdvReac Severe FLU Unverified 08/17/20 15:33 [facility] Home Medications Medication Instructions Recorded Confirmed Type atorvastatin 40 mg tablet (Lipitor) 40 mg PO HS 08/17/20 10/17/20 History calcium acetate(phosphat bind) 667 667 mg PO DAILY 08/17/20 10/17/20 History mg capsule furosemide 40 mg tablet 40 mg PO DAILY 08/17/20 10/17/20 History lidocaine-prilocaine 2.5 %-2.5 % 1 applic TOPICAL UD 08/17/20 10/17/20 History topical cream vit B complx, C-iron 8 mg-folic 1 tab PO DAILY 08/17/20 10/17/20 History acid 800 mcg-D3 1,000 unit-zinc tablet (ProRenal) Past Med/Surg History Medical History Diabetes type 2, controlled ESRD (end stage renal disease) on dialysis Hyperlipidemia Hypertension Surgical History History of surgery on arm History of tooth extraction Family History Mother Cancer Father Stomach cancer Esophagus cancer Cancer Cancer of bowel Sister Kidney stone Social History Smoking Status: Never smoker Hx Alcohol Use: Yes Preferred Language: Latvian marital status: current occupational status: retired Feels Safe at Home: Yes Review of Systems Review of Systems: All systems reviewed & are unremarkable except as noted in HPI & below Cardiovascular: + edema (slight edema up to shins, due for HD today) Musculoskeletal: + joint pain (left forearm severe pain from fracture) Physical Exam Constitutional: WD/WN, vitals as above + obese; no acute distress Eyes: PERRL, conjunctivae normal, anicteric sclerae ENMT: external ear and nose normal, oropharynx normal Neck: trachea midline, no thyromegaly Respiratory: normal respiratory effort, lungs clear to auscultation Cardiovascular: Rate/Rhythm: regular rate and regular rhythm Heart Sounds: normal S1 and normal S2; no murmur Extremities: normal capillary refill, + edema (non pitting, above ankle) and + AV fistula (left UE) Gastrointestinal (Abdomen): normal bowel sounds, soft, nontender, no hepatosplenomegaly Musculoskeletal: no cyanosis or clubbing, extremities motor strength 5/5 (left arm splinted with fistula access exposed, tender) Skin: no rashes, warm and dry Neurologic: patellar DTR's 2+ bilat, sensation intact and PERRL, EOMI, accommodation nl, no face palsy, no dysarthria Psychiatric: A+Ox3, euthymic affect Results & Data Results & Data ([facility]) Vital Signs (Past 12 Hours) Vital Signs Temp Pulse Pulse Resp BP BP Pulse Ox 10/17/20 07:00 67 23 165/66 H 94 10/17/20 06:30 63 153/68 H 90 10/17/20 06:19 66 22 163/70 H 96 10/17/20 06:00 64 163/70 H 93 10/17/20 05:42 64 174/72 H 96 10/17/20 04:32 36.3 C L 66 20 157/69 H 95 Laboratory Results Laboratory Results - last 24 hr 10/17/20 10/17/20 10/17/20 05:25 05:25 05:26 WBC RBC Hgb Hct MCV MCH MCHC RDW Std Deviation RDW Coeff of Mukul Plt Count MPV Immature Gran % (Auto) Neut % (Auto) Lymph % (Auto) [place] % (Auto) Eos % (Auto) Baso % (Auto) Neut # (Auto) Lymph # (Auto) [place] # (Auto) Eos # (Auto) Baso # (Auto) Immature Gran # (Auto) PT 10.2 INR 1.0 APTT 23.9 PTT Ratio 0.9 Sodium Potassium Chloride Carbon Dioxide Anion Gap BUN Creatinine Est Cr Clr Drug Dosing Est GFR ( Amer) Est GFR (Non-Af Amer) BUN/Creatinine Ratio Glucose Calcium COVID-19 Eval Order Covid19 at [facility] SARS-CoV-2 (PCR) NEGATIVE 10/17/20 10/17/20 05:26 05:26 WBC 9.17 RBC 3.83 L Hgb 11.8 L Hct 36.4 L MCV 95.0 MCH 30.8 MCHC 32.4 RDW Std Deviation 46.0 RDW Coeff of Mukul 13.3 Plt Count 192 MPV 10.2 Immature Gran % (Auto) 0.2 Neut % (Auto) 80.7 Lymph % (Auto) 12.5 [place] % (Auto) 5.6 Eos % (Auto) 0.8 Baso % (Auto) 0.2 Neut # (Auto) 7.40 H Lymph # (Auto) 1.15 L [place] # (Auto) 0.51 Eos # (Auto) 0.07 Baso # (Auto) 0.02 Immature Gran # (Auto) 0.02 PT INR APTT PTT Ratio Sodium 141 Potassium 4.3 Chloride 104 Carbon Dioxide 32 Anion Gap 5.0 BUN 81 H Creatinine 5.11 H* Est Cr Clr Drug Dosing 16.8 Est GFR ( Amer) 12.2 Est GFR (Non-Af Amer) 10.6 BUN/Creatinine Ratio 15.8 Glucose 236 H Calcium 8.9 COVID-19 Eval Order SARS-CoV-2 (PCR) Diagnostic Findings XR forearm LT 2V CLINICAL HISTORY: fall, left forearm injury COMPARISON: None FINDINGS: Left forearm soft tissue swelling is noted. There is vascular calcification and soft tissue calcifications which are chronic. Note is made of an acute displaced fracture of the midshaft of the left radius. Fracture is displaced 1.3 cm. A few small bone fragments are present. There is also an acute nondisplaced fracture the midshaft of the left ulna. Spurring of the olecranon at the insertion of triceps is noted. IMPRESSION: 1. Acute displaced midshaft fracture of the left radius. 2. Acute nondisplaced midshaft fracture of the left ulna. 3. Left forearm soft tissue swelling. Code Status & VTE Plan VTE Prophylaxis Plan VTE Prophylaxis will be ordered: Yes PG Care Time/CCT Total # of Minutes Spent Total Time Spent with Patient: Total time spent is greater than 50% in coordination of care (as documented) at patient's floor/unit and/or counseling patient: Coding Level of Care Code 04047 Initial Inpt Care Lvl 3 Diagnoses Forearm fractures, both bones, closed S52.92XA; S52.202A Encounter type: initial encounter Laterality: left Fall W19.XXXA Encounter type: initial encounter Diabetic nephropathy associated with type 2 diabetes mellitus E11.21 Dyslipidemia E78.5 End stage renal disease N18.6 Essential (primary) hypertension I10 (1) Forearm fractures, both bones, closed Encounter type: initial encounter Laterality: left Qualified Code(s): S52.92XA - Unspecified fracture of left forearm, initial encounter for closed fracture; S52.202A - Unspecified fracture of shaft of left ulna, initial encounter for closed fracture (2) Fall Encounter type: initial encounter Qualified Code(s): W19.XXXA - Unspecified fall, initial encounter
[2020-10-17] MEDS ORDERED: SODIUM CHLORIDE 0.9% 1000ML 1,000 ML IV PRN (10:10)
--- NOTE | 2020-10-17 10:17 | Nephrology Consultation ---
Date of Consultation October 17, 2020 Assessment & Plan (1) End stage renal disease: * AVF + bruit. No surrounding ecchymosis or hematoma * Able to access AVF without manipulating/moving L arm * Will provide HD today using AVF - heparin free * Orders placed in EMR and HD RN notified (2) Forearm fractures, both bones, closed: * Await vascular and orthopedic input (3) Type 2 diabetes mellitus with complications: History of Present Illness Reason for Consultation: ESRD on HD History of Present Illness Mr. Blue is a 70 year old white male who is seen at the request of Dr. Ocampo to provide HD during his hospital stay. Medical records in the EMR were reviewed today and are summarized as follows: Mr. Blue has ESRD due to DKD. He underwent L wrist AVF creation by Dr. Edmonds 05/17 and has been on HD since 09/15. He currently dialyzes at [facility] (TTS 4 hr 3K 2.5Ca Na 140 HCO3 35 F-180NR Qb 400 QdA1.5 EDW 115kg). His medical history is significant for DM, HTN, iron deficiency anemia, and vitamin D deficiency. Mr. Blue denies any recent complications with his dialysis. This morning he presented to the ED following a mechanical fall at home while walking his dog. X-ray reveals a displaced fracture of the L radius and a nondisplaced fracture of the L ulna. AVF is intact w/ + thrill and bruit. HD has been requested as patient will likely undergo surgical repair this afternoon or tomorrow morning. Allergies Allergy/AdvReac Type Severity Reaction Status Date / Time amlodipine AdvReac Severe FLU Unverified 08/17/20 15:33 [facility] Home Medications Medication Instructions Recorded Confirmed Type atorvastatin 40 mg tablet (Lipitor) 40 mg PO HS 08/17/20 10/17/20 History calcium acetate(phosphat bind) 667 667 mg PO DAILY 08/17/20 10/17/20 History mg capsule furosemide 40 mg tablet 40 mg PO DAILY 08/17/20 10/17/20 History lidocaine-prilocaine 2.5 %-2.5 % 1 applic TOPICAL UD 08/17/20 10/17/20 History topical cream vit B complx, C-iron 8 mg-folic 1 tab PO DAILY 08/17/20 10/17/20 History acid 800 mcg-D3 1,000 unit-zinc tablet (ProRenal) Patient History Medical History Diabetes type 2, controlled ESRD (end stage renal disease) on dialysis Hyperlipidemia Hypertension Surgical History History of surgery on arm History of tooth extraction Family History Mother Cancer Father Stomach cancer Esophagus cancer Cancer Cancer of bowel Sister Kidney stone Social History Smoking Status: Never smoker Hx Alcohol Use: Yes Preferred Language: Irish marital status: current occupational status: retired Feels Safe at Home: Yes Review of Systems Constitutional: no fever Eyes: no worsening vision and no problem reported Ear, Nose, Mouth, Throat: no problem reported Respiratory: no cough and no dyspnea Cardiovascular: no chest pain, no palpitations and no edema Gastrointestinal: no abdominal pain, no nausea, no vomiting and no diarrhea/loose stools Genitourinary: no dysuria, no urinary hesitancy or no hematuria Musculoskeletal: L arm pain Integumentary: no rash Neurologic: no dizziness and no confusion Physical Exam Constitutional: not in distress Eyes: PERRL, conjunctivae normal, anicteric sclerae Neck: trachea midline, no thyromegaly Respiratory: normal respiratory effort, lungs clear to auscultation Cardiovascular: RRR, no murmur, no edema Extremities: + AV fistula (+ bruit. No ecchymosis. Venous limb easily palpable) Gastrointestinal (Abdomen): normal bowel sounds, soft, nontender, no hepatosplenomegaly Neurologic: awake; not confused Results & Data ([facility]) Vital Signs (Past 12 Hours) Vital Signs Temp Pulse Pulse Resp BP BP Pulse Ox 10/17/20 08:31 73 194/79 H 94 10/17/20 08:00 69 21 169/84 H 91 10/17/20 07:30 66 179/73 H 10/17/20 07:00 67 23 165/66 H 94 10/17/20 06:30 63 153/68 H 90 10/17/20 06:19 66 22 163/70 H 96 10/17/20 06:00 64 163/70 H 93 10/17/20 05:42 64 174/72 H 96 10/17/20 04:32 36.3 C L 66 20 157/69 H 95 Laboratory Results Laboratory Tests 10/17/20 10/17/20 10/17/20 05:26 05:26 05:26 WBC 9.17 Hgb 11.8 L Hct 36.4 L Plt Count 192 INR 1.0 Sodium 141 Potassium 4.3 Chloride 104 Carbon Dioxide 32 BUN 81 H Creatinine 5.11 H* Glucose 236 H PG Care Time/CCT Total # of Minutes Spent Total Time Spent with Patient: Total time spent is greater than 50% in coordination of care (as documented) at patient's floor/unit and/or counseling patient: Coding Level of Care Code 90758 Office/OBS Consult Lvl 5 Diagnoses End stage renal disease N18.6 Forearm fractures, both bones, closed S52.92XA; S52.A Encounter type: initial encounter Laterality: left Type 2 diabetes mellitus with complications E11.8 (1) Forearm fractures, both bones, closed Encounter type: initial encounter Laterality: left Qualified Code(s): S52.92XA - Unspecified fracture of left forearm, initial encounter for closed fracture; S52.202A - Unspecified fracture of shaft of left ulna, initial encounter for closed fracture
--- NOTE | 2020-10-17 11:40 | Dialysis Progress Note ---
Date of Service October 17, 2020 Assessment & Plan (1) End stage renal disease: Plan: * Plan of care discussed w/ Vascular Surgery this am. They were agreeable to using AVF for HD today * AVF + bruit. No surrounding ecchymosis or hematoma * Able to access AVF without manipulating/moving L arm * AVF functioning well during HD this am. Will continue heparin free HD (2) Forearm fractures, both bones, closed: Plan: * Await vascular and orthopedic input (3) Type 2 diabetes mellitus with complications: Subjective Mr. Blue was seen & examined during HD this morning. No difficulty accessing AVF. Arm did not need to be manipulated. No infiltration of the access noted. HD proceeding without arterial or venous access alarms. Mr. Blue was seen 15 min into his treatment and voiced no new medical concerns Review of Systems Constitutional: no fever Eyes: no worsening vision and no problem reported Ear, Nose, Mouth, Throat: no problem reported Respiratory: no cough and no dyspnea Cardiovascular: no chest pain, no palpitations and no edema Gastrointestinal: no abdominal pain, no nausea, no vomiting and no d iarrhea/loose stools Genitourinary: no dysuria, no urinary hesitancy or no hematuria Musculoskeletal: L arm pain Integumentary: no rash Neurologic: no dizziness and no confusion Physical Exam Constitutional: not in distress Eyes: PERRL, conjunctivae normal, anicteric sclerae Neck: trachea midline, no thyromegaly Respiratory: normal respiratory effort, lungs clear to auscultation Cardiovascular: RRR, no murmur, no edema Extremities: + AV fistula (+ bruit. No ecchymosis. Venous limb easily palpable) Gastrointestinal (Abdomen): normal bowel sounds, soft, nontender, no hepatosplenomegaly Neurologic: awake; not confused Results & Data ([facility]) Vital Signs (Past 12 Hours) Vital Signs Temp Pulse Pulse Resp BP BP Pulse Ox 10/17/20 10:00 74 12 160/73 H 10/17/20 09:31 76 24 155/74 H 10/17/20 08:31 73 194/79 H 94 10/17/20 08:00 69 21 169/84 H 91 10/17/20 07:30 66 179/73 H 10/17/20 07:00 67 23 165/66 H 94 10/17/20 06:30 63 153/68 H 90 10/17/20 06:19 66 22 163/70 H 96 10/17/20 06:00 64 163/70 H 93 10/17/20 05:42 64 174/72 H 96 10/17/20 04:32 36.3 C L 66 20 157/69 H 95 Coding Level of Care Code None Diagnoses End stage renal disease N18.6 Forearm fractures, both bones, closed S52.92XA; S52.202A Encounter type: initial encounter Laterality: left Type 2 diabetes mellitus with complications E11.8 CPT Codes Dialysis, One Evaluation - 90504 (1) Forearm fractures, both bones, closed Encounter type: initial encounter Laterality: left Qualified Code(s): S52.92XA - Unspecified fracture of left forearm, initial encounter for closed fracture; S52.202A - Unspecified fracture of shaft of left ulna, initial encounter for closed fracture
--- NOTE | 2020-10-17 15:42 | Electrocardiogram Report ---
Test Reason : Blood Pressure : / mmHG Vent. Rate : 068 BPM Atrial Rate : 068 BPM P-R Int : 182 ms QRS Dur : 096 ms QT Int : 450 ms P-R-T Axes : 094 017 -12 degrees QTc Int : 478 ms Poor data quality, interpretation may be adversely affected Sinus rhythm with Premature atrial complexes Nonspecific ST abnormality Abnormal ECG When compared with ECG of 17-AUG-2020 14:46, Premature atrial complexes are now Present Confirmed by Venkata Angeles ([id number]) on 10/17/2020 3:42:47 PM Referred By: REFERRED SELF Confirmed By:Venkata Angeles
[2020-10-17] MEDS ORDERED: ONDANSETRON INJ 2 MG/ML 2 ML VIAL IV PRN (15:43)
[2020-10-17] MEDS ORDERED: ACETAMINOPHEN 325 MG TAB PO PRN (15:43)
[2020-10-17] MEDS ORDERED: oxyCODONE HCL IR 5 MG TAB (IMMEDIATE RELEASE) PO PRN (15:43)
[2020-10-17] MEDS ORDERED: POLYETHYLENE (MIRALAX) 17 GM PACK PO PRN (15:43)
[2020-10-17] MEDS ORDERED: LIDOCAINE/PRILOCAINE 2.5% EA CRM EXT SCH (16:00)
[2020-10-17] MEDS ORDERED: FUROSEMIDE 40 MG TAB PO SCH (16:00)
[2020-10-17] MEDS ORDERED: GLUCOSE 40% GEL 15 GM TUBE PO PRN (16:00)
[2020-10-17] MEDS ORDERED: CALCIUM ACETATE 667 MG CAP/TAB PO SCH (16:00)
[2020-10-17] MEDS ORDERED: GLUCOSE 10 TABS/TUBE PO PRN (16:00)
[2020-10-17] MEDS ORDERED: GLUCAGON FOR INJ 1 MG VIAL IM PRN (16:00)
[2020-10-17] MEDS ORDERED: CARBOHYDRATES FOR HYPOGLYCEMIA PO PRN (16:00)
[2020-10-17] MEDS ORDERED: DEXTROSE 50% 50 ML SYRINGE IV PRN (16:00)
--- NOTE | 2020-10-17 16:50 | Orthopedic Consultation ---
Date of Consultation October 17, 2020 Assessment & Plan (1) Forearm fractures, both bones, closed: Patient was evaluated in his room, with Dr. Laura in attendance. Films were reviewed. Due to the complicated medical history of this patient, and the location of his fistula, he will need to be transferred to for definitive surgical management of his fracture. Shared medical decision making with the patient was thoroughly discussed. He verbalizes an understanding of the complicated nature of his fracture. Transfer to a larger facility was discussed with the hospitalist service here at [facility]. His splint should remain in place at this time. Continue with elevation for edema control. His anticoagulation should be continued due to his current sedentary condition. Supervising Physician Co-Signing Physician Notes I saw and examined the patient. Agree with the above note. Patient is a high risk surgical patient due to the location of his AV fistula and multiple medical comorbidities. I spoke with Dr. Myrna Rosales, ortho trauma physician at [place], regarding this patient, who will need to be transferred to a medical service. History of Present Illness Reason for Consultation: Left forearm both bone fracture Attending Physician: Danny Ocampo, History of Present Illness This 70-year-old male is seen today in his room. Patient injured himself this morning around 4 AM. He states he was pulled down the steps by his dog. He had immediate onset of pain in his left forearm. He is unsure if the arm was posted on or if it was trapped underneath him. He was seen in the ED this morning and found to have a both bone forearm fracture. Patient has a history of renal failure, type 2 diabetes, hypertension, hyperlipidemia, and is on dialysis. Because of his comorbidities, he was admitted to the hospitalist service and orthopedics was consulted. He currently states his pain is getting better. He denies striking his head. There was no loss of consciousness. He denies any chest pain or shortness of breath. No nausea or vomiting. No numbness or tingling. No prior history of significant forearm injury. He does have his dialysis fistula present in the midshaft of the left forearm. [id number]. Allergies Allergy/AdvReac Type Severity Reaction Status Date / Time amlodipine AdvReac Severe FLU Unverified 08/17/20 15:33 [facility] Home Medications Medication Instructions Recorded Confirmed Type atorvastatin 40 mg tablet (Lipitor) 40 mg PO HS 08/17/20 10/17/20 History calcium acetate(phosphat bind) 667 667 mg PO DAILY 08/17/20 10/17/20 History mg capsule furosemide 40 mg tablet 40 mg PO DAILY 08/17/20 10/17/20 History lidocaine-prilocaine 2.5 %-2.5 % 1 applic TOPICAL UD 08/17/20 10/17/20 History topical cream vit B complx, C-iron 8 mg-folic 1 tab PO DAILY 08/17/20 10/17/20 History acid 800 mcg-D3 1,000 unit-zinc tablet (ProRenal) Patient History Medical History Diabetes type 2, controlled ESRD (end stage renal disease) on dialysis Hyperlipidemia Hypertension Surgical History History of surgery on arm History of tooth extraction Family History Mother Cancer Father Stomach cancer Esophagus cancer Cancer Cancer of bowel Sister Kidney stone Social History Smoking Status: Never smoker Hx Alcohol Use: No Hx Substance Use: No Preferred Language: Maltese Communication Ability: Effective Syrup Blender Required: No Beliefs That Will Affect Care: None marital status: Current Living Situation: Family current occupational status: retired Feels Safe at Home: Yes Assistive Devices: Brace/Splint/Immobilizer Review of Systems Review of Systems: All systems reviewed & are unremarkable except as noted in HPI & below Physical Exam Physical Exam: General: Well-developed, well-nourished, elderly white male, in no acute distress. Laying on his bed. Alert and oriented. Conversive. Skin: Warm and dry with fair turgor. No rashes. He does have a superficial skin abrasion present over the ulnar surface of his left midshaft forearm. Bleeding is controlled. Nonstick dressing is in place. He does have significant ecchymosis surrounding it. He has numerous scars on his left arm present from his previous fistula surgery as well as skin tears. Edema is present in the arm. His fistula is also visible. It was just accessed today and pressure dressings are in place. Musculoskeletal: Patient has a splint in place on his left forearm. It extends above the elbow. He has intact motor function of his fingers and thumb. Flexion and extension are intact. Rotation of the forearm was not attempted secondary to known fracture. He does have intact motor function to his left shoulder. Neurologic: Gross sensation is intact across each of the digits of the left hand by soft touch. Capillary refill is equal for each of the fingers. His fistula is palpable in the left radial forearm. Results & Data ([facility]) Vital Signs (Past 12 Hours) Vital Signs Temp Pulse Pulse Pulse Resp BP BP 10/17/20 15:38 36.7 C 64 20 122/86 10/17/20 15:32 36.6 C 59 L 120/64 10/17/20 15:00 72 93/56 L 10/17/20 14:40 56 L 106/55 L 10/17/20 14:20 55 L 99/59 L 10/17/20 14:00 55 L 133/66 10/17/20 13:20 54 L 101/54 L 10/17/20 13:00 54 L 101/54 L 10/17/20 12:40 57 L 99/52 L 10/17/20 12:30 37.2 C 77 10/17/20 12:20 57 L 99/52 L 10/17/20 12:00 63 109/61 10/17/20 11:40 63 109/61 10/17/20 11:20 63 117/59 L 10/17/20 11:00 71 147/68 H 10/17/20 10:56 72 165/71 H 10/17/20 10:00 74 12 160/73 H 10/17/20 09:31 76 24 155/74 H 10/17/20 08:31 73 194/79 H 10/17/20 08:00 69 21 169/84 H 10/17/20 07:30 66 179/73 H 10/17/20 07:00 67 23 165/66 H 10/17/20 06:30 63 153/68 H 10/17/20 06:19 66 22 163/70 H 10/17/20 06:00 64 163/70 H 10/17/20 05:42 64 174/72 H Pulse Ox 10/17/20 15:38 98 10/17/20 15:32 07/20/21 15:00 10/17/20 14:40 10/17/20 14:20 10/17/20 14:00 10/17/20 13:20 10/17/20 13:00 10/17/20 12:40 10/17/20 12:30 10/17/20 12:20 10/17/20 12:00 10/17/20 11:40 10/17/20 11:20 10/17/20 11:00 10/17/20 10:56 10/17/20 10:00 10/17/20 09:31 10/17/20 08:31 94 10/17/20 08:00 91 10/17/20 07:30 10/17/20 07:00 94 10/17/20 06:30 90 10/17/20 06:19 96 10/17/20 06:00 93 10/17/20 05:42 96 Diagnostic Findings Radiographic imaging previously obtained today was reviewed. Patient has a both bone forearm fracture, midshaft, of the left forearm. Ulnar fracture is nondisplaced. Radial fracture is displaced. (1) Forearm fractures, both bones, closed Encounter type: initial encounter Laterality: left Qualified Code(s): S52.92XA - Unspecified fracture of left forearm, initial encounter for closed fracture; S52.202A - Unspecified fracture of shaft of left ulna, initial encounter for closed fracture
[2020-10-17] MEDS: HEPARIN SOD 5,000 UNIT/0.5 ML VIAL SQ SCH ×2 (17:25→21:05)
[2020-10-17] MEDS: INSULIN ASPART 100 UNITS/ML 3 ML PEN SC SCH ×4 (17:26→21:10)
--- NOTE | 2020-10-17 19:14 | Discharge Summary ---
Date of Service October 17, 2020 Admission HPI Per Admitting Provider 70 yo male with history of ESRD on HD Fri schedule, presented to the ED early this morning after he tripped over his dog early, around 430am. He fell on his left side, he could not recall if his left arm was outstretched or if it was tucked underneath him. He had immediate pain in left forearm, felt like his arm was broken, he came to the ED for evaluation. Prior to this morning he was in his usual state of health. He has been tolerating HD, does not miss sessions, his weight has been stable, no chest pain, no dyspnea. He eats well, is moving his bowels regularly, still makes a little urine with use of Lasix in the morning. He has not had any recent signs of infection, no fever/chills, no cough. In the ED his BP was elevated but no fever, HR and saturations stable. X-ray of the left fore arm shows acute displaced midshaft fracture of radius and acute nondisplaced midshaft fracture of ulna. CXR normal. WBC normal, Hb 11.8, Cr 5.11 and K normal. ED spoke with orthopedics, vascular surgery for plan. Hospitalist requested for admission. Principal Diagnosis Radius and ulnar fracture immediately below dialysis graft Discharge Exam not seen Discharge Data Allergies Allergy/AdvReac Type Severity Reaction Status Date / Time amlodipine AdvReac Severe FLU Unverified 08/17/20 15:33 [place] Consultations 10/17/20 06:24 ED Decision to Admit Stat 10/17/20 15:43 Consult Nephrology Routine Consult Orthopedic Surgery Routine Consult Vascular Surgery Routine 10/17/20 17:10 Burn CD for patient Stat Hospital Course (1) Forearm fractures, both bones, closed: due to proximity to HD graft - for transfer to [facility] for coordinated effort between ortho and vacsular (2) Fall: mechanical fall, tripped over dog, no concerns for syncope (3) End stage renal disease: had HD today (4) Diabetic nephropathy associated with type 2 diabetes mellitus: A1cs run mostly mid 6's (5) Dyslipidemia: (6) Essential (primary) hypertension: BP acceptable here Total Time Total Time Spent Total Time Spent (In Minutes): >30 mins none face to face with patient Discharge Plan Discharge Items Patient Disposition: Transfer Acute Care Hospital Reason For Visit: LEFT FOREARM FRACTURE, HD PATIENT Discharge Diagnosis: forearm fracture Activity: Per Instructions section Non-emergency contact: Primary Care Provider Call non-emergency contact if: your symptoms worsen Follow-up/Referrals: Eloisa Barton CRNP [Primary Care Provider] - Diet: Nothing by Mouth Addtl Attending Provider Instructions: Forearm fractures, both bones, closed: XR - 1. Acute displaced midshaft fracture of the left radius. 2. Acute nondisplaced midshaft fracture of the left ulna. Plan: Tylenol, Oxycodone PRN for pain control Hep SC for DVT prophylaxis consult orthopedics - plan to transfer to [facility] as fistula is overlying the area required for fixation requiring vascular surgery not currently available at [facility] Fall: Plan: mechanical fall, tripped over dog, no concerns for syncope End stage renal disease: Plan: has good thrill and bruit from fistula if fistula does not function consider temp. HD catheter Cr 5, K is normal, slightly volume overloaded but breathing well on room air, lungs clear Diabetic nephropathy associated with type 2 diabetes mellitus: Plan: diabetic diet SSI coverage Essential (primary) hypertension: Plan: only takes Lasix according to MAR Pending Studies at Discharge: No Stand-Alone Forms: My [facility] Skilled Items Patient informed of condition?: Yes DNR: No Discharge Level of Care: Other Communicable Disease: No Discharge Prognosis: Stable Lines: Peripheral IV Urinary Catheter: No Medications and DC Order Prescriptions: Continued ProRenal 8 mg iron-800 mcg-1,000 unit tablet 1 tab PO DAILY RF: 0 furosemide 40 mg tablet 40 mg PO DAILY RF: 0 atorvastatin [Lipitor] 40 mg tablet 40 mg PO HS RF: 0 lidocaine-prilocaine 2.5-2.5 % cream 1 applic topical UD RF: 0 calcium acetate(phosphat bind) 667 mg capsule 667 mg PO DAILY RF: 0 Discharge Orders: Discharge Order (Routine); Ordered 10/17/20 Ordered By: Bishnu Slaughter Admission Data Admit Date/Time: 10/17/20 08:46 Attending Provider: Danny Ocampo Admit Provider: Danny Ocampo Primary Care Provider: Eloisa Barton Other Providers: Danny Ocampo ; Darren Mcdowell ; Jelani Cormier ; Lisandro Short ; Isaac Eduardo ; Keesha Lopez ; Anisa Woodruff ; Chavo Hernandes ; Pérez Jean ; Sylvester Elizabeth ; Sylvester Laura ; Millie Martino ; Nori Thomas ; Elodia Cornelius ; Odilia Morgan ; Jadon Edmonds Coding Level of Care Code D/C DAY MANAGEMENT >30 MINS Diagnoses Forearm fractures, both bones, closed S52.92XA; S52.202A Encounter type: initial encounter Laterality: left Fall W19.XXXA Encounter type: initial encounter End stage renal disease N18.6 Diabetic nephropathy associated with type 2 diabetes mellitus E11.21 Dyslipidemia E78.5 Essential (primary) hypertension I10
[2020-10-17 19:29] VITALS: BP 122/66; PULSE 61; TEMP 98.6; O2SAT 92
[2020-10-17] MEDS ORDERED: HYDROmorphone INJ 0.5 MG/0.5 ML SYR IV STA (20:58)
[2020-10-17] MEDS ORDERED: ATORVASTATIN 40 MG TAB PO SCH (21:00)
[2020-10-18] MEDS ORDERED: MULTIVITAMIN TAB PO SCH (09:00)
--- NOTE | 2020-10-18 14:17 | Consultation ---
Date of Consultation October 18, 2020 History of Present Illness Attending Physician: Danny Ocampo DO History of Present Illness Vascular surgery was not notified or had patient put on our list prior to transfer. Allergies Allergy/AdvReac Type Severity Reaction Status Date / Time amlodipine AdvReac Severe FLU Unverified 08/17/20 15:33 [facility] Home Medications Medication Instructions Recorded Confirmed Type atorvastatin 40 mg tablet (Lipitor) 40 mg PO HS 08/17/20 10/17/20 History calcium acetate(phosphat bind) 667 667 mg PO DAILY 08/17/20 10/17/20 History mg capsule furosemide 40 mg tablet 40 mg PO DAILY 08/17/20 10/17/20 History lidocaine-prilocaine 2.5 %-2.5 % 1 applic TOPICAL UD 08/17/20 10/17/20 History topical cream vit B complx, C-iron 8 mg-folic 1 tab PO DAILY 08/17/20 10/17/20 History acid 800 mcg-D3 1,000 unit-zinc tablet (ProRenal) Patient History Medical History Diabetes type 2, controlled ESRD (end stage renal disease) on dialysis Hyperlipidemia Hypertension Surgical History History of surgery on arm History of tooth extraction Family History Mother Cancer Father Stomach cancer Esophagus cancer Cancer Cancer of bowel Sister Kidney stone Social History Smoking Status: Never smoker Hx Alcohol Use: No Hx Substance Use: No Preferred Language: [place] Communication Ability: Effective Trim Attacher Required: No Beliefs That Will Affect Care: None marital status: Current Living Situation: Family current occupational status: retired Feels Safe at Home: Yes Assistive Devices: Glasses
== END 2020-10-17 22:10 | disposition short-term general hospital (02) | DRG 562 ==
LOC: ED 04:29 → 2N 08:46

== ENCOUNTER 2021-03-04 13:41 | Inpatient (IN) ==
--- NOTE | 2021-03-04 15:03 | Emergency Department Note ---
History of Present Illness General Chief complaint: Syncope Time Seen by Provider: 03/04/21 14:10 History of Present Illness Provider complaint: Syncope Onset (ago): hour(s) 2 Associated symptoms: + cough, + fever/chills, + headaches, + nausea/vomiting (Nausea no vomiting), + shortness of breath and + syncope 70-year-old male end-stage renal disease on hemodialysis Friday presents emergency department for syncope. Patient states he was in a shower and passed out and hit his head around 1230. Patient reports he has been feeling ill recently. He reports a loss of appetite. He reports nausea but no vomiting. He also reports mild cough and shortness of breath. He reports some chills. Patient states he thinks he is dehydrated. Patient is not vaccinated against COVID-19. Home Medications Medication Instructions Recorded Confirmed Type atorvastatin 40 mg tablet (Lipitor) 40 mg PO HS 08/17/20 03/04/21 History calcium acetate(phosphat bind) 667 667 mg PO DAILY 08/17/20 03/04/21 History mg capsule lidocaine-prilocaine 2.5 %-2.5 % 1 applic TOPICAL DIRECTED 08/17/20 03/04/21 History topical cream vit B complx, C-iron 8 mg-folic 1 tab PO DAILY 08/17/20 03/04/21 History acid 800 mcg-D3 1,000 unit-zinc tablet (ProRenal) furosemide 40 mg tablet 40 mg PO DAILY 03/04/21 03/04/21 History Allergies Allergy/AdvReac Type Severity Reaction Status Date / Time amlodipine AdvReac Severe FLU Verified 03/04/21 15:53 SYMPTONS Past Med/Surg History Medical History Diabetes type 2, controlled ESRD (end stage renal disease) on dialysis Fistula left arm Hyperlipidemia Hypertension Surgical History History of surgery on arm History of tooth extraction Family History Mother Cancer Father Stomach cancer Esophagus cancer Cancer Cancer of bowel Sister Kidney stone Social History Smoking Status: Never smoker Second Hand Exposure: No; Hx Alcohol Use: No Hx Substance Use: No Preferred Language: Nigerien Communication Ability: Impaired Pearler Required: No Beliefs That Will Affect Care: None marital status: Current Living Situation: Other Current Living Situation Comment: daughter lives w/ patient current occupational status: retired Feels Safe at Home: Yes Assistive Devices: Glasses Review of Systems A total of 10 systems reviewed and were otherwise negative Physical Exam Vital Signs Vital Signs - 24 hr 03/04/21 13:57 03/04/21 14:19 03/04/21 15:27 Temperature 37.9 C H Temperature Source Oral Pulse Rate 96 H Pulse Rate [Right Finger] 91 H Pulse Rhythm Irregular Pulse Rhythm [Right Finger] Irregular Pulse Strength Normal Pulse Strength [Right Finger] Normal Respiratory Rate 22 20 Respiratory Effort / Characteristics Spontaneous Accessory Muscle Use Spontaneous Accessory Muscle Use Non-Labored Respiratory Depth Normal Normal Respiratory Pattern Tachypnea Regular Blood Pressure 149/70 H Blood Pressure [Right Arm] 108/65 Blood Pressure Mean 96 Blood Pressure Mean [Right Arm] 79 Blood Pressure Position Lying Blood Pressure Position [Right Arm] Lying Pulse Oximetry 92 98 Oxygen Delivery Method Room Air Nasal Cannula Nasal Cannula Oxygen Flow Rate 2 2 Sepsis Recent Fever Within 48 Hours No Sepsis New/Unexplained Change in Mental Status N/A Sepsis Action Taken by Nursing No Action Required Physical Exam GENERAL: He is oriented to person, place, and time. He appears well-developed and well-nourished. He does not appear distressed. HENT: Exam performed. - Head: Normocephalic and atraumatic. - Right Ear: External ear normal. No mastoid tenderness. - Left Ear: External ear normal. No mastoid tenderness. - Mouth/Throat: The oropharynx is clear and moist. No trismus in the jaw. No dental abscesses or uvula swelling. No oropharyngeal exudate or tonsillar abscesses. EYES: Conjunctivae and EOM are normal. Pupils are equal, round, and reactive to light. Right eye exhibits no discharge. Left eye exhibits no discharge. No scleral icterus. NECK: Normal range of motion. Neck supple. No JVD present. No spinous process tenderness present. No carotid bruit present. No rigidity. No tracheal deviation and normal range of motion present. No Brudzinski's sign and no Kernig's sign noted. CV: Normal rate, irregular rhythm, normal heart sounds and intact distal pulses. There is no peripheral edema. Palpable radial pulses bue. PULM/CHEST: Rhonchi bilaterally. - Chest Wall: He exhibits no tenderness. ABD: The abdomen is soft and obese Bowel sounds are normal. He has no distension. No mass is present. There is no tenderness. There is no rebound, no guarding, no Gutierrez's sign and no tenderness at McBurney's point. Rovsig negative. MUSC/SKEL: Normal range of motion. Left upper extremity AV fistula with palpable thrill. LYMPH: No cervical adenopathy. NEURO: He is alert and oriented to person, place, and time. He has normal streng th. No cranial nerve deficit or sensory deficit. Coordination and gait normal. GCS eye subscore is 4. GCS verbal subscore is 5. GCS motor subscore is 6. Cerebellar tests wnl. SKIN: Skin is warm and dry. He is not diaphoretic. PSYCH: He has a normal mood and affect. Behavior is normal. Judgment and thought content normal. Course Course 1410: The patient was evaluated in room C6. A complete history and physical exam was performed Cardiac monitoring: An order was placed for continuous cardiac monitoring. The monitor shows a rate of 100 with atrial fibrilation rhythm Patient was hypoxic on room air at 88%. Patient was placed on 2 L nasal cannula which improved his oxygen saturation. 1815: Vital signs stable on supplemental oxygen via nasal cannula. Labs are within normal limits with exception of creatinine of 5.28 which at the patient's baseline. Troponin elevated 0.079 however patient is also elevated creatinine level due to CKD patient currently not reporting any chest pain. Patient is positive for COVID-19. Imaging shows no pulmonary embolus but does show bilateral groundglass opacities. Patient treated with Decadron 6 mg IV push [facility]. Administered Medications Discontinued Medications Ioversol (Optiray 320 125ml) 119 ml IV ONCE ONE Stop: 03/04/21 15:19 Last Admin: 03/04/21 15:18 Dose: 119 ml Documented by: [id number] Critical Care Time Critical Care Time: Yes Total Critical Care Time: 37 I have personally spent greater than 37 minutes of critical care time in the direct management of this patient. This includes bedside care, interpretation of diagnostic studies, and testing, discussion with consultants, patient, and family members, and other required patient management activities. This 37 minutes is in excess of all separately billable procedures. Medical Decision Making Laboratory Data Result diagrams: 03/04/21 14:50 03/04/21 14:50 Lab Results 03/04/21 03/04/21 03/04/21 Range/Units 14:50 14:50 14:50 WBC 4.59 L (4.8-10.8) K/uL RBC 3.95 L (4.7-6.1) M/uL Hgb 12.0 L (14.0-18.0) g/dL Hct 37.7 L (42-52) % MCV 95.4 (80-100) fL MCH 30.4 (25-34) pg MCHC 31.8 L (32-36) g/dL RDW Std Deviation 47.5 H (36.4-46.3) fL RDW Coeff of Mukul 13.7 (11.5-14.5) % Plt Count 140 (130-400) K/uL MPV 10.6 H (7.4-10.4) fL Immature Gran % (Auto) 0.2 % Neut % (Auto) 74.1 % Lymph % (Auto) 15.0 % Dixon % (Auto) 10.5 % Eos % (Auto) 0.0 % Baso % (Auto) 0.2 % Neut # (Auto) 3.40 (1.4-6.5) K/uL Lymph # (Auto) 0.69 L (1.2-3.4) K/uL Dixon # (Auto) 0.48 (0.11-0.59) K/uL Eos # (Auto) 0.00 (0-0.5) K/uL Baso # (Auto) 0.01 (0-0.2) K/uL Immature Gran # (Auto) 0.01 (0.00-0.02) K/uL PT 10.3 (9.0-12.0) Seconds INR 1.0 (0.9-1.1) APTT 27.4 (21.0-31.0) Seconds PTT Ratio 1.0 VBG pH (7.36-7.41) VBG pCO2 (38-50) mmHg VBG pO2 mmHg VBG HCO3 mmol/L VBG O2 Saturation % VBG Base Excess mEq/L Barometric Pressure mm/Hg Sodium 136 (136-145) mmol/L Potassium 3.5 (3.5-5.1) mmol/L Chloride 97 L (98-107) mmol/L Carbon Dioxide 32 (21-32) mmol/L Anion Gap 7.0 (3-11) BUN 39 H (7-18) mg/dl Creatinine 5.28 H* (0.6-1.4) mg/dl Est Cr Clr Drug Dosing 16.8 ml/min Est GFR ( Amer) 11.8 ml/min Est GFR (Non-Af Amer) 10.2 ml/min BUN/Creatinine Ratio 7.4 L (10-20) Glucose 143 H (70-99) mg/dl Lactate (0.4-2.0) mmol/L Calcium 8.6 (8.5-10.1) mg/dl Magnesium 2.3 (1.8-2.4) mg/dl Total Bilirubin 0.4 (0.2-1) mg/dl AST 53 H (15-37) U/L ALT 47 (12-78) Alkaline Phosphatase 131 H (45-117) U/L Troponin I 0.079 H* (0-0.045) ng/ml Total Protein 7.4 (6.4-8.2) gm/dl Albumin 2.9 L (3.4-5.0) gm/dl Globulin 4.5 H (2.5-4.0) gm/dl Albumin/Globulin Ratio 0.6 L (0.9-2) Procalcitonin (0-0.5) ng/ml SARS-CoV-2 (PCR) (Negative) Influenza Type A (PCR) (Neg) Influenza Type B (PCR) (Neg) RSV (RT-PCR) (Neg) 03/04/21 03/04/21 03/04/21 Range/Units 14:50 14:50 14:50 WBC (4.8-10.8) K/uL RBC (4.7-6.1) M/uL Hgb (14.0-18.0) g/dL Hct (42-52) % MCV (80-100) fL MCH (25-34) pg MCHC (32-36) g/dL RDW Std Deviation (36.4-46.3) fL RDW Coeff of Mukul (11.5-14.5) % Plt Count (130-400) K/uL MPV (7.4-10.4) fL Immature Gran % (Auto) % Neut % (Auto) % Lymph % (Auto) % Dixon % (Auto) % Eos % (Auto) % Baso % (Auto) % Neut # (Auto) (1.4-6.5) K/uL Lymph # (Auto) (1.2-3.4) K/uL Dixon # (Auto) (0.11-0.59) K/uL Eos # (Auto) (0-0.5) K/uL Baso # (Auto) (0-0.2) K/uL Immature Gran # (Auto) (0.00-0.02) K/uL PT (9.0-12.0) Seconds INR (0.9-1.1) APTT (21.0-31.0) Seconds PTT Ratio VBG pH 7.42 H (7.36-7.41) VBG pCO2 50 (38-50) mmHg VBG pO2 29 mmHg VBG HCO3 31 mmol/L VBG O2 Saturation < 60.0 % VBG Base Excess 5.8 mEq/L Barometric Pressure 736.5 mm/Hg Sodium (136-145) mmol/L Potassium (3.5-5.1) mmol/L Chloride (98-107) mmol/L Carbon Dioxide (21-32) mmol/L Anion Gap (3-11) BUN (7-18) mg/dl Creatinine (0.6-1.4) mg/dl Est Cr Clr Drug Dosing ml/min Est GFR ( Amer) ml/min Est GFR (Non-Af Amer) ml/min BUN/Creatinine Ratio (10-20) Glucose (70-99) mg/dl Lactate 1.8 (0.4-2.0) mmol/L Calcium (8.5-10.1) mg/dl Magnesium (1.8-2.4) mg/dl Total Bilirubin (0.2-1) mg/dl AST (15-37) U/L ALT (12-78) Alkaline Phosphatase (45-117) U/L Troponin I (0-0.045) ng/ml Total Protein (6.4-8.2) gm/dl Albumin (3.4-5.0) gm/dl Globulin (2.5-4.0) gm/dl Albumin/Globulin Ratio (0.9-2) Procalcitonin 0.39 (0-0.5) ng/ml SARS-CoV-2 (PCR) (Negative) Influenza Type A (PCR) (Neg) Influenza Type B (PCR) (Neg) RSV (RT-PCR) (Neg) 03/04/21 Range/Units 16:05 WBC (4.8-10.8) K/uL RBC (4.7-6.1) M/uL Hgb (14.0-18.0) g/dL Hct (42-52) % MCV (80-100) fL MCH (25-34) pg MCHC (32-36) g/dL RDW Std Deviation (36.4-46.3) fL RDW Coeff of Mukul (11.5-14.5) % Plt Count (130-400) K/uL MPV (7.4-10.4) fL Immature Gran % (Auto) % Neut % (Auto) % Lymph % (Auto) % Dixon % (Auto) % Eos % (Auto) % Baso % (Auto) % Neut # (Auto) (1.4-6.5) K/uL Lymph # (Auto) (1.2-3.4) K/uL Dixon # (Auto) (0.11-0.59) K/uL Eos # (Auto) (0-0.5) K/uL Baso # (Auto) (0-0.2) K/uL Immature Gran # (Auto) (0.00-0.02) K/uL PT (9.0-12.0) Seconds INR (0.9-1.1) APTT (21.0-31.0) Seconds PTT Ratio VBG pH (7.36-7.41) VBG pCO2 (38-50) mmHg VBG pO2 mmHg VBG HCO3 mmol/L VBG O2 Saturation % VBG Base Excess mEq/L Barometric Pressure mm/Hg Sodium (136-145) mmol/L Potassium (3.5-5.1) mmol/L Chloride (98-107) mmol/L Carbon Dioxide (21-32) mmol/L Anion Gap (3-11) BUN (7-18) mg/dl Creatinine (0.6-1.4) mg/dl Est Cr Clr Drug Dosing ml/min Est GFR ( Amer) ml/min Est GFR (Non-Af Amer) ml/min BUN/Creatinine Ratio (10-20) Glucose (70-99) mg/dl Lactate (0.4-2.0) mmol/L Calcium (8.5-10.1) mg/dl Magnesium (1.8-2.4) mg/dl Total Bilirubin (0.2-1) mg/dl AST (15-37) U/L ALT (12-78) Alkaline Phosphatase (45-117) U/L Troponin I (0-0.045) ng/ml Total Protein (6.4-8.2) gm/dl Albumin (3.4-5.0) gm/dl Globulin (2.5-4.0) gm/dl Albumin/Globulin Ratio (0.9-2) Procalcitonin (0-0.5) ng/ml SARS-CoV-2 (PCR) POSITIVE A* (Negative) Influenza Type A (PCR) Negative (Neg) Influenza Type B (PCR) Negative (Neg) RSV (RT-PCR) Negative (Neg) Imaging Data Radiologist's Impression: Chest X-Ray 03/04/21 14:19 XR chest 1V portable CLINICAL HISTORY: SEPSIS COMPARISON STUDY: Chest radiograph October 17, 2020. Chest CT March 04, 2021. FINDINGS: There is no pneumothorax or pleural effusion. Cardiomegaly is unchanged. No evidence for pulmonary edema. Lung volumes are normal. Bilateral lower lung opacities are noted, slightly greater on the left. IMPRESSION: 1. Bilateral lower lung opacities, greater on the left. These could reflect an infectious process or atelectasis. 2. Cardiomegaly without evidence for pulmonary edema. ACT 112: Negative or not required by law. Electronically signed by: Sukhi Bryant M.D. 03/04/2021 4:[address] 03/04/21 14:21 CT OF THE CERVICAL SPINE WITHOUT CONTRAST CLINICAL HISTORY: syncope hit head COMPARISON STUDY: MRI of the cervical spine and CT of the cervical spine September 18, 2017. TECHNIQUE: Helical axial images of the cervical spine were obtained without IV contrast. Sagittal and coronal reconstructions were viewed. Automated exposure control was utilized for the study. A dose lowering technique was utilized adhering to the principles of ALARA. FINDINGS: No acute cervical spine fracture is noted. Slight widening of the anterior aspect of the C4-C5 disc space is unchanged since prior exam of September 18, 2017. Craniocervical junction is intact. No suspicious osseous lesions. Moderate to severe multilevel degenerative disc disease and facet arthrosis is noted. Epidural densities were noted on prior exam. These are due to degenerative disc disease as shown on prior MRI. There is no prevertebral edema. IMPRESSION: 1. No acute cervical spine fracture or subluxation. 2. Moderate to severe multilevel degenerative changes within the cervical spine. ACT 112: Negative or not required by law. Electronically signed by: Sukhi Bryant M.D. 03/04/2021 3:51 PM Chest CTA 03/04/21 14:21 CHEST CTA for PULMONARY ARTERIES CT DOSE: HISTORY: Shortness of breath. Syncope. Covid positive. Fall. TECHNIQUE: Multiaxial CT images of the chest were performed following the intravenous administration of contrast to evaluate the pulmonary arteries. Maximal intensity projection images were also obtained. A dose lowering technique was utilized adhering to the principles of ALARA. COMPARISON STUDY: Abdomen and pelvis CT 12/14/2018. FINDINGS: The visualized liver is unremarkable. Stable scarring within the posterior spleen. Thickening of the left junk gland is only partially imaged on this study. No mediastinal or hilar lymphadenopathy. The thyroid gland enhances normally. Normal esophagus. The heart is mildly enlarged. There is concentric hypertrophy of the left ventricle. Mitral annulus calcifications are noted. There is also severe calcified plaque within the coronary arteries. Normal caliber thoracic aorta with no evidence for dissection. The main pulmonary artery is mildly distended up to 3.6 cm. This is consistent with mild pulmonary arterial hypertension. No filling defects within the pulmonary arteries to suggest a pulmonary embolus. There are old, healed bilateral rib fractures. The central airways are patent. No pneumothorax. A few punctate calcified granulomas within the lungs. There are few subcentimeter groundglass nodules within the upper lobes. Dominant groundglass nodule within the right upper lobe on image 173 measures 8 mm. There are also patchy and irregular airspace opacities within the base of the bilateral lower lobes. This is greater than expected for atelectasis and therefore likely represents a pneumonia. IMPRESSION: 1. No evidence for pulmonary embolus. 2. Patchy and irregular airspace opacities within the base of the bilateral lower lobes. This likely represents a pneumonia could be due to aspiration or viral process. 3. There are few scattered subcentimeter groundglass nodules within the left upper lobe measure up to 8 mm[address] follow-up recommended to ensure stability/resolution. ACT 112: Positive. There are findings on this exam that require communication between the performing entity and the patient following Patient Test Result Information Act ([place] Act 112) guidelines. Electronically signed by: Fransico Griffin M.D. 03/04/2021 3:[address] 03/04/21 14:[address] DOSE: HISTORY: syncope hit head TECHNIQUE: Multiaxial CT images of the head were performed without the use of intravenous contrast. Automated exposure control was utilized for this study. A dose lowering technique was utilized adhering to the principles of ALARA. Comparison: Head CT 09/18/2017 Findings: The paranasal sinuses and mastoid air cells are clear. The calvarium and skull base are intact. There is no mass, hematoma, midline shift, acute in farct. White matter hypodensity is nonspecific but suggestive of microvascular ischemic change. The ventricles and sulci demonstrate mild age-related involutional changes. Impression: No acute intracranial abnormality. Atrophy and microvascular ischemic changes. ACT 112: Negative or not required by law. Electronically signed by: Fransico Griffin M.D. 03/04/2021 3:28 PM ECG Data Indication: + syncope Rate (beats per minute): 96 Rhythm: + atrial fibrillation ECG Intervals/blocks: + Normal QRS and + Normal QT-c ECG ST segments: + Normal ST segments Additional Comments: Baseline wander and artifact. EKG at 1535: Atrial fibrillation with rate of 86. QRS [address] elevation or ST depression. MDM Narrative 1410: The patient was evaluated in room C6. A complete history and physical exam was performed Cardiac monitoring: An order was placed for continuous cardiac monitoring. The monitor shows a rate of 100 with atrial fibrilation rhythm Patient was hypoxic on room air at 88%. Patient was placed on 2 L nasal cannula which improved his oxygen saturation. 1815: Vital signs stable on supplemental oxygen via nasal cannula. Labs are within normal limits with exception of creatinine of 5.28 which at the patient's baseline. Troponin elevated 0.079 however patient is also elevated creatinine level due to CKD patient currently not reporting any chest pain. Patient is positive for COVID-19. Imaging shows no pulmonary embolus but does show bilateral groundglass opacities. Patient treated with Decadron 6 mg IV push [facility]. Impression & Plan Hypoxia, Pneumonia due to 2019 novel coronavirus Discharge Plan Visit Data Chief Complaint: Syncope ED Provider: Jefferson Nassar Discharge Problem: Hypoxia, Pneumonia due to 2019 novel coronavirus Patient Disposition: Admitted As Inpatient Forms Stand Alone Forms: [facility] Prescriptions Prescriptions: No Action ProRenal 8 mg iron-800 mcg-1,000 unit tablet 1 tab PO DAILY RF: 0 atorvastatin [Lipitor] 40 mg tablet 40 mg PO HS RF: 0 lidocaine-prilocaine 2.5-2.5 % cream 1 applic topical DIRECTED RF: 0 calcium acetate(phosphat bind) 667 mg capsule 667 mg PO DAILY RF: 0 furosemide 40 mg tablet 40 mg PO DAILY RF: 0 Referrals Referrals: PCP,NO [Primary Care Provider] -
[2021-03-04 15:08] LABS: Basophils # (auto) 0.01 K/uL (0-0.2); Basophils % (auto) 0.2 %; Hematocrit (blood only) 37.7 % (42-52); Immature Granulocytes # (auto) 0.01 K/uL (0.00-0.02); Immature Granulocytes % (auto) 0.2 %; Lymphocytes # (auto) 0.69 K/uL (1.2-3.4); Mean Corpuscular Hemoglobin 30.4 pg (25-34); Mean Corpuscular Hgb Conc 31.8 g/dL (32-36); Mean Corpuscular Volume 95.4 fL (80-100); Mean Platelet Volume 10.6 fL (7.4-10.4); Monocytes # (auto) 0.48 K/uL (0.11-0.59); Monocytes % (auto) 10.5 %; Neutrophils % (auto) 74.1 %; Platelet Count 140 K/uL (130-400); RDW Coefficient of Variation 13.7 % (11.5-14.5); RDW Standard Deviation 47.5 fL (36.4-46.3); Red Blood Count 3.95 M/uL (4.7-6.1); White Blood Count 4.59 K/uL (4.8-10.8)
[2021-03-04 15:09] LABS: Base Excess VBG 5.8 mEq/L; HCO3 VBG 31 mmol/L; PCO2 VBG 50 mmHg (38-50); PO2 VBG 29 mmHg; pH VBG 7.42 (7.36-7.41)
[2021-03-04 15:18] LABS: Oxygen Saturation VBG < 60.0 %
[2021-03-04] MEDS ORDERED: OPTIRAY 320 125ml IV ONE (15:18)
[2021-03-04 15:23] LABS: Partial Thromboplastin Time 27.4 Seconds (21.0-31.0); Prothrombin Time 10.3 Seconds (9.0-12.0)
--- NOTE | 2021-03-04 15:29 | CT Scan Report ---
HEAD CT NONCONTRAST CT DOSE: HISTORY: syncope hit head TECHNIQUE: Multiaxial CT images of the head were performed without the use of intravenous contrast. A utomated exposure control was utilized for this study. A dose lowering technique was utilized adheri ng to the principles of ALARA. Comparison: Head CT 09/18/2017 Findings: The paranasal sinuses and mastoid air cells are clear. The calvarium and skull base are int act. There is no mass, hematoma, midline shift, acute infarct. White matter hypodensity is nonspecifi c but suggestive of microvascular ischemic change. The ventricles and sulci demonstrate mild age-rela sharonda involutional changes. Impression: No acute intracranial abnormality. Atrophy and microvascular ischemic changes. ACT 112: Negative or not required by law. Electronically signed by: Fransico Griffin M.D. 03/04/2021 3:28 PM
[2021-03-04 15:48] LABS: Albumin Globulin Ratio 0.6 (0.9-2); Albumin Level 2.9 gm/dl (3.4-5.0); BUN Creatinine Ratio 7.4 (10-20); Bilirubin,Total 0.4 mg/dl (0.2-1); Calcium 8.6 mg/dl (8.5-10.1); Creatinine Clr Calc Pharmacy 16.8 ml/min; Est GFR (African American) 11.8 ml/min; Est GFR (Non-African American) 10.2 ml/min; Globulin 4.5 gm/dl (2.5-4.0); Magnesium 2.3 mg/dl (1.8-2.4); Potassium 3.5 mmol/L (3.5-5.1); Total Protein 7.4 gm/dl (6.4-8.2); Troponin I 0.079 ng/ml (0-0.045)
--- NOTE | 2021-03-04 15:53 | CT Scan Report ---
CT OF THE CERVICAL SPINE WITHOUT CONTRAST CLINICAL HISTORY: syncope hit head COMPARISON STUDY: MRI of the cervical spine and CT of the cervical spine September 18, 2017. TECHNIQUE: Helical axial images of the cervical spine were obtained without IV contrast. Sagittal a nd coronal reconstructions were viewed. Automated exposure control was utilized for the study. A do se lowering technique was utilized adhering to the principles of ALARA. FINDINGS: No acute cervical spine fracture is noted. Slight widening of the anterior aspect of the C4 -C5 disc space is unchanged since prior exam of September 18, 2017. Craniocervical junction is intact. No suspicious osseous lesions. Moderate to severe multilevel degenerative disc disease and facet arthros is is noted. Epidural densities were noted on prior exam. These are due to degenerative disc disease as shown on prior MRI. There is no prevertebral edema. IMPRESSION: 1. No acute cervical spine fracture or subluxation. 2. Moderate to severe multilevel degenerative changes within the cervical spine. ACT 112: Negative or not required by law. Electronically signed by: Sukhi Bryant M.D. 03/04/2021 3:51 PM
--- NOTE | 2021-03-04 15:56 | CT Scan Report ---
CHEST CTA for PULMONARY ARTERIES CT DOSE: HISTORY: Shortness of breath. Syncope. Covid positive. Fall. TECHNIQUE: Multiaxial CT images of the chest were performed following the intravenous administration of contrast to evaluate the pulmonary arteries. Maximal intensity projection images were also obtaine d. A dose lowering technique was utilized adhering to the principles of ALARA. COMPARISON STUDY: Abdomen and pelvis CT 12/14/2018. FINDINGS: The visualized liver is unremarkable. Stable scarring within the posterior spleen. Thickeni ng of the left junk gland is only partially imaged on this study. No mediastinal or hilar lymphadenop athy. The thyroid gland enhances normally. Normal esophagus. The heart is mildly enlarged. There is c oncentric hypertrophy of the left ventricle. Mitral annulus calcifications are noted. There is also s evere calcified plaque within the coronary arteries. Normal caliber thoracic aorta with no evidence f or dissection. The main pulmonary artery is mildly distended up to 3.6 cm. This is consistent with mi ld pulmonary arterial hypertension. No filling defects within the pulmonary arteries to suggest a pul monary embolus. There are old, healed bilateral rib fractures. The central airways are patent. No pne umothorax. A few punctate calcified granulomas within the lungs. There are few subcentimeter groundgl ass nodules within the upper lobes. Dominant groundglass nodule within the right upper lobe on image 173 measures 8 mm. There are also patchy and irregular airspace opacities within the base of the bila teral lower lobes. This is greater than expected for atelectasis and therefore likely represents a pn eumonia. IMPRESSION: 1. No evidence for pulmonary embolus. 2. Patchy and irregular airspace opacities within the base of the bilateral lower lobes. This likely represents a pneumonia could be due to aspiration or viral process. 3. There are few scattered subcentimeter groundglass nodules within the left upper lobe measure up to 8 mm[address] follow-up recommended to ensure stability/resolution. ACT 112: Positive. There are findings on this exam that require communication between the performing entity and the patient following Patient Test Result Information Act ([place] Act 112) guidelines. Electronically signed by: Fransico Griffin M.D. 03/04/2021 3:55 PM
--- NOTE | 2021-03-04 16:13 | XRay Report ---
XR chest 1V portable CLINICAL HISTORY: SEPSIS COMPARISON STUDY: Chest radiograph October 17, 2020. Chest CT March 04, 2021. FINDINGS: There is no pneumothorax or pleural effusion. Cardiomegaly is unchanged. No evidence for pu lmonary edema. Lung volumes are normal. Bilateral lower lung opacities are noted, slightly greater on the left. IMPRESSION: 1. Bilateral lower lung opacities, greater on the left. These could reflect an infectious process or atelectasis. 2. Cardiomegaly without evidence for pulmonary edema. ACT 112: Negative or not required by law. Electronically signed by: Sukhi Bryant M.D. 03/04/2021 4:11 PM
[2021-03-04 17:15] LABS: Influenza A virus by PCR Negative (Neg); Influenza B virus by PCR Negative (Neg); RSV by PCR Negative (Neg)
[2021-03-04] MEDS ORDERED: dexAMETHasone 6 MG in SYRINGE 0 ML IV ONE (17:24)
[2021-03-04] MEDS ORDERED: DEXAMETHASONE SOD INJ 4 MG/ML VIAL ONE (18:44)
--- NOTE | 2021-03-04 19:31 | History & Physical Report ---
Date of Service March 04, 2021 History of Present Illness Primary Care Provider: NO PCP Rey Thorpe is a 70 year old male who presents to the ER with . While taking a shower and when he sat down on a commode and Sitting on couch. Lives with his daughter and grandaughter and two other kids. Diagnosed with COVID-19 2 weeks ago. Not vaccinated. No prior treatment for COVID-19 pneumonia. Allergies Allergy/AdvReac Type Severity Reaction Status Date / Time amlodipine AdvReac Severe FLU Verified 03/04/21 15:53 [facility] Home Medications Medication Instructions Recorded Confirmed Type atorvastatin 40 mg tablet (Lipitor) 40 mg PO HS 08/17/20 03/04/21 History calcium acetate(phosphat bind) 667 667 mg PO DAILY 08/17/20 03/04/21 History mg capsule lidocaine-prilocaine 2.5 %-2.5 % 1 applic TOPICAL DIRECTED 08/17/20 03/04/21 History topical cream vit B complx, C-iron 8 mg-folic 1 tab PO DAILY 08/17/20 03/04/21 History acid 800 mcg-D3 1,000 unit-zinc tablet (ProRenal) furosemide 40 mg tablet 40 mg PO DAILY 03/04/21 03/04/21 History Past Med/Surg History Medical History Diabetes type 2, controlled ESRD (end stage renal disease) on dialysis Fistula left arm Hyperlipidemia Hypertension Surgical History History of surgery on arm History of tooth extraction Family History Mother Cancer Father Stomach cancer Esophagus cancer Cancer Cancer of bowel Sister Kidney stone Social History Smoking Status: Never smoker Second Hand Exposure: No; Hx Alcohol Use: No Hx Substance Use: No Preferred Language: Vincentian Communication Ability: Impaired Nursing Student Required: No Beliefs That Will Affect Care: None marital status: Current Living Situation: Other Current Living Situation Comment: daughter lives w/ patient current occupational status: retired Feels Safe at Home: Yes Assistive Devices: Glasses Review of Systems Review of Systems: All systems reviewed & are unremarkable except as noted in HPI & below Results & Data Results & Data ([facility]) Vital Signs (Past 12 Hours) Vital Signs Temp Pulse Pulse Resp BP BP Pulse Ox 03/04/21 15:27 91 H 20 108/65 03/04/21 14:19 98 03/04/21 13:57 37.9 C H 96 H 22 149/70 H 92 Code Status & VTE Plan VTE Prophylaxis Plan VTE Prophylaxis will be ordered: Yes PG Care Time/CCT Total # of Minutes Spent Total Time Spent with Patient: Total time spent is greater than 50% in coordination of care (as documented) at patient's floor/unit and/or counseling patient: Coding
[2021-03-04 20:02] VITALS: BP 111/68; TEMP 100; O2SAT 96
[2021-03-04 20:24] VITALS: PULSE 97
[2021-03-04] MEDS ORDERED: DEXTROSE 50% 50 ML SYRINGE IV PRN (20:25)
[2021-03-04] MEDS ORDERED: GLUCAGON FOR INJ 1 MG VIAL SQ PRN (20:25)
[2021-03-04] MEDS ORDERED: POLYETHYLENE (MIRALAX) 17 GM PACK PO PRN (20:25)
[2021-03-04] MEDS ORDERED: GLUCOSE 10 TABS/TUBE PO PRN (20:25)
[2021-03-04] MEDS ORDERED: CARBOHYDRATES FOR HYPOGLYCEMIA PO PRN (20:25)
[2021-03-04] MEDS ORDERED: ACETAMINOPHEN 325 MG TAB PO PRN (20:25)
[2021-03-04] MEDS ORDERED: GLUCOSE 40% GEL 15 GM TUBE PO PRN (20:25)
[2021-03-04] MEDS ORDERED: ONDANSETRON INJ 2 MG/ML 2 ML VIAL IV PRN (20:25)
[2021-03-04] MEDS ORDERED: ATORVASTATIN 40 MG TAB PO SCH (21:00)
[2021-03-04] MEDS ORDERED: INSULIN ASPART 100 UNITS/ML VIAL SC SCH (21:00)
[2021-03-04] MEDS ORDERED: INSULIN ASPART 100 UNITS/ML 3 ML PEN SC SCH (21:00)
--- NOTE | 2021-03-04 21:36 | Hospitalist Consultation ---
Date of Consultation March 04, 2021 Assessment & Plan (1) Pneumonia due to 2019 novel coronavirus: High risk of deterioration with ESRD, age [age] years old and unvaccinated status. Medical recommendation is to stay for inpatient treatment at this time however patient wished to be discharged against medical advice. This was discussed with his daughter with consent of the patient who was also unable to convince the patient to stay in the hospital and will come and chicken picker the patient. The patient has consent to make this medical decision, he is able to understand, weigh up, come to a decision and communicate that decision. Recommend continuing dexamethasone 6mg PO at home for total duration 10 days. Recommend daughter calls [facility] for virtual visit next week. Return to the ER if he gets more short of breath or increasing oxygen requirement. (2) Hypoxia: Patient is short of breath on room air at rest with oxygen saturation 89- 90%, he is positive for COVID-19 and requires oxygen. Discussed aiming O2 sats > 90% with his daughter. Provided patient with oxygen concentrator. Highly recommends he returns to the ER if increasing oxygen requirement or shortness of breath. (3) End stage renal disease: No urgent need for dialysis. Recommend sticking to his usual treatments of Friday, and Friday. (4) Syncope: Likely combination of hypoxia with dehydration from dialysis yesterday and diarrhea. Recommend additional fluids to offset his diarrhea. History of Present Illness Reason for Consultation: COVID-19 pneumonia, hypoxia Requesting Physician: Dr Nassar Attending Physician: Rickey Moran MD History of Present Illness Rey Thorpe is a 70 year old male who presents to the ER with cough, shortness of breath and syncope. He is not vaccinated for COVID-19. He has known COVID-19; testing positive at urgent care on February 24 although was have symptoms for approximately 5 days prior to this with nasal congestion and cough. He has not received any prior treatments although notes he was temporarily placed on oxygen at dialysis a week ago but not since then. He denies any wor sening fatigue or shortness of breath. Only reason he is in the ER is due to a syncopal episode earlier today. He reports while taking a shower he felt dizzy and then lost consciousness. He reportedly fell down and hit his head. His daughter helped him up to the couch and while there he felt back to his normal self. He doesn't feel he was dehydrated as he has been having some diarrhea and reduced appetite with his current COVID-19 infection. In the ER O2 sats on room air 88 - 92%. He is maintaining O2 sats > 94% on 2LPM O2. Allergies Allergy/AdvReac Type Severity Reaction Status Date / Time amlodipine AdvReac Severe FLU Verified 03/04/21 15:53 [facility] Home Medications Medication Instructions Recorded Confirmed Type atorvastatin 40 mg tablet (Lipitor) 40 mg PO HS 08/17/20 03/04/21 History calcium acetate(phosphat bind) 667 667 mg PO DAILY 08/17/20 03/04/21 History mg capsule lidocaine-prilocaine 2.5 %-2.5 % 1 applic TOPICAL DIRECTED 08/17/20 03/04/21 History topical cream vit B complx, C-iron 8 mg-folic 1 tab PO DAILY 08/17/20 03/04/21 History acid 800 mcg-D3 1,000 unit-zinc tablet (ProRenal) dexamethasone 6 mg tablet 6 mg PO DAILY 9 Days #9 tab 03/04/21 Rx furosemide 40 mg tablet 40 mg PO DAILY 03/04/21 03/04/21 History Patient History Medical History Diabetes type 2, controlled ESRD (end stage renal disease) on dialysis Fistula left arm Hyperlipidemia Hypertension Surgical History History of surgery on arm History of tooth extraction Family History Mother Cancer Father Stomach cancer Esophagus cancer Cancer Cancer of bowel Sister Kidney stone Social History Smoking Status: Never smoker Second Hand Exposure: No; Hx Alcohol Use: No Hx Substance Use: No Preferred Language: Yi Communication Ability: Impaired Rn Homecare Required: No Beliefs That Will Affect Care: None marital status: Current Living Situation: Other Current Living Situation Comment: daughter lives w/ patient current occupational status: retired Feels Safe at Home: Yes Assistive Devices: Glasses Review of Systems Review of Systems: All systems reviewed & are unremarkable except as noted in HPI & below Physical Exam Constitutional: well developed; + not well nourished and no acute distress Eyes: + anicteric sclerae; normal pupil size ENMT: external ear and nose normal, oropharynx normal Neck: trachea midline, no thyromegaly Respiratory: normal respiratory effort, lungs clear to auscultation able to speak in complete sentences Cardiovascular: Rate/Rhythm: regular rate and regular rhythm Heart Sounds: no murmur Extremities: normal capillary refill and + pedal edema (1+ pre- tibial equal b/l); no calf tenderness Gastrointestinal (Abdomen): normal bowel sounds, soft, nontender, no hepatosplenomegaly Musculoskeletal: no cyanosis or clubbing, extremities motor strength 5/5 Skin: no rashes, warm and dry Neurologic: moves all extremities and awake; not confused Psychiatric: A+Ox3, euthymic affect Results & Data Results & Data ([facility]) Vital Signs (Past 12 Hours) Vital Signs Temp Pulse Pulse Resp BP BP Pulse Ox 03/04/21 20:01 37.8 C H 89 20 111/68 96 03/04/21 18:12 97 H 20 111/68 93 03/04/21 15:27 91 H 20 108/65 03/04/21 14:19 98 03/04/21 13:57 37.9 C H 96 H 22 149/70 H 92 Laboratory Results Abnormal lab results 03/04/21 03/04/21 03/04/21 Range/Units 14:50 14:50 14:50 WBC 4.59 L (4.8-10.8) K/uL RBC 3.95 L (4.7-6.1) M/uL Hgb 12.0 L (14.0-18.0) g/dL Hct 37.7 L (42-52) % MCHC 31.8 L (32-36) g/dL RDW Std Deviation 47.5 H (36.4-46.3) fL MPV 10.6 H (7.4-10.4) fL Lymph # (Auto) 0.69 L (1.2-3.4) K/uL VBG pH 7.42 H (7.36-7.41) Chloride 97 L (98-107) mmol/L BUN 39 H (7-18) mg/dl Creatinine 5.28 H* (0.6-1.4) mg/dl BUN/Creatinine Ratio 7.4 L (10-20) Glucose 143 H (70-99) mg/dl AST 53 H (15-37) U/L Alkaline Phosphatase 131 H (45-117) U/L Troponin I 0.079 H* (0-0.045) ng/ml C-Reactive Protein (0-0.29) mg/dl Albumin 2.9 L (3.4-5.0) gm/dl Globulin 4.5 H (2.5-4.0) gm/dl Albumin/Globulin Ratio 0.6 L (0.9-2) SARS-CoV-2 (PCR) (Negative) 03/04/21 03/04/21 Range/Units 14:50 16:05 WBC (4.8-10.8) K/uL RBC (4.7-6.1) M/uL Hgb (14.0-18.0) g/dL Hct (42-52) % MCHC (32-36) g/dL RDW Std Deviation (36.4-46.3) fL MPV (7.4-10.4) fL Lymph # (Auto) (1.2-3.4) K/uL VBG pH (7.36-7.41) Chloride (98-107) mmol/L BUN (7-18) mg/dl Creatinine (0.6-1.4) mg/dl BUN/Creatinine Ratio (10-20) Glucose (70-99) mg/dl AST (15-37) U/L Alkaline Phosphatase (45-117) U/L Troponin I (0-0.045) ng/ml C-Reactive Protein 2.21 H (0-0.29) mg/dl Albumin (3.4-5.0) gm/dl Globulin (2.5-4.0) gm/dl Albumin/Globulin Ratio (0.9-2) SARS-CoV-2 (PCR) POSITIVE A* (Negative) Diagnostic Findings HEAD CT NONCONTRAST CT DOSE: HISTORY: syncope hit head TECHNIQUE: Multiaxial CT images of the head were performed without the use of intravenous contrast. Automated exposure control was utilized for this study. A dose lowering technique was utilized adhering to the principles of ALARA. Comparison: Head CT 09/18/2017 Findings: The paranasal sinuses and mastoid air cells are clear. The calvarium and skull base are intact. There is no mass, hematoma, midline shift, acute infarct. White matter hypodensity is nonspecific but suggestive of microvascular ischemic change. The ventricles and sulci demonstrate mild age-related involutional changes. Impression: No acute intracranial abnormality. Atrophy and microvascular ischemic changes. CT OF THE CERVICAL SPINE WITHOUT CONTRAST CLINICAL HISTORY: syncope hit head COMPARISON STUDY: MRI of the cervical spine and CT of the cervical spine September 18, 2017. TECHNIQUE: Helical axial images of the cervical spine were obtained without IV contrast. Sagittal and coronal reconstructions were viewed. Automated exposure control was utilized for the study. A dose lowering technique was utilized adhering to the principles of ALARA. FINDINGS: No acute cervical spine fracture is noted. Slight widening of the anterior aspect of the C4-C5 disc space is unchanged since prior exam of September 18, 2017. Craniocervical junction is intact. No suspicious osseous lesions. Moderate to severe multilevel degenerative disc disease and facet arthrosis is noted. Epidural densities were noted on prior exam. These are due to degenerative disc disease as shown on prior MRI. There is no prevertebral edema. IMPRESSION: 1. No acute cervical spine fracture or subluxation. 2. Moderate to severe multilevel degenerative changes within the cervical spine. CHEST CTA for PULMONARY ARTERIES CT DOSE: HISTORY: Shortness of breath. Syncope. Covid positive. Fall. TECHNIQUE: Multiaxial CT images of the chest were performed following the intravenous administration of contrast to evaluate the pulmonary arteries. Maximal intensity projection images were also obtained. A dose lowering technique was utilized adhering to the principles of ALARA. COMPARISON STUDY: Abdomen and pelvis CT 12/14/2018. FINDINGS: The visualized liver is unremarkable. Stable scarring within the posterior spleen. Thickening of the left junk gland is only partially imaged on this study. No mediastinal or hilar lymphadenopathy. The thyroid gland enhances normally. Normal esophagus. The heart is mildly enlarged. There is concentric hypertrophy of the left ventricle. Mitral annulus calcifications are noted. There is also severe calcified plaque within the coronary arteries. Normal caliber thoracic aorta with no evidence for dissection. The main pulmonary artery is mildly distended up to 3.6 cm. This is consistent with mild pulmonary arterial hypertension. No filling defects within the pulmonary arteries to sugge st a pulmonary embolus. There are old, healed bilateral rib fractures. The central airways are patent. No pneumothorax. A few punctate calcified granulomas within the lungs. There are few subcentimeter groundglass nodules within the upper lobes. Dominant groundglass nodule within the right upper lobe on image 173 measures 8 mm. There are also patchy and irregular airspace opacities within the base of the bilateral lower lobes. This is greater than expected for atelectasis and therefore likely represents a pneumonia. IMPRESSION: 1. No evidence for pulmonary embolus. 2. Patchy and irregular airspace opacities within the base of the bilateral lower lobes. This likely represents a pneumonia could be due to aspiration or viral process. 3. There are few scattered subcentimeter groundglass nodules within the left upper lobe measure up to 8 mm[address] follow-up recommended to ensure stability/resolution. XR chest 1V portable CLINICAL HISTORY: SEPSIS COMPARISON STUDY: Chest radiograph October 17, 2020. Chest CT March 04, 2021. FINDINGS: There is no pneumothorax or pleural effusion. Cardiomegaly is unchanged. No evidence for pulmonary edema. Lung volumes are normal. Bilateral lower lung opacities are noted, slightly greater on the left. IMPRESSION: 1. Bilateral lower lung opacities, greater on the left. These could reflect an infectious process or atelectasis. 2. Cardiomegaly without evidence for pulmonary edema. Medications Administered ER Medications Given: Dexamethasone 6mg IV PG Care Time/CCT Total # of Minutes Spent Total Time Spent with Patient: Total time spent is greater than 50% in coordination of care (as documented) at patient's floor/unit and/or counseling patient: Coding Level of Care Code 50685 Office/OBS Consult Lvl 4 Diagnoses Hypoxia R09.02 Pneumonia due to 2019 novel coronavirus U07.1; J12.82 End stage renal disease N18.6 Syncope R55
[2021-03-05] MEDS ORDERED: CALCIUM ACETATE 667 MG CAP/TAB PO SCH (07:30)
[2021-03-05] MEDS ORDERED: CEROVITE ADV FORMULA TAB PO SCH (09:00)
[2021-03-05] MEDS ORDERED: dexAMETHasone 6 MG in SYRINGE 0 ML IV SCH (09:00)
--- NOTE | 2021-03-05 15:51 | Electrocardiogram Report ---
Test Reason : Blood Pressure : / mmHG Vent. Rate : 086 BPM Atrial Rate : 070 BPM P-R Int : 000 ms QRS Dur : 100 ms QT Int : 424 ms P-R-T Axes : 000 023 -28 degrees QTc Int : 507 ms Poor data quality, interpretation may be adversely affected Atrial fibrillation Nonspecific ST and T wave abnormality Abnormal ECG When compared with ECG of 17-OCT-2020 05:32, Atrial fibrillation has replaced Sinus rhythm Confirmed by Venkata Angeles ([id number]) on 03/05/2021 3:50:34 PM Referred By: REFERRED SELF Confirmed By:Venkata Angeles
[2021-03-05 18:25] LABS: SARS CoV2 RNA(COVID-19) InHosp POSITIVE (Negative)
== END 2021-03-04 21:40 | disposition left against medical advice (07) | DRG 177 ==
LOC: ED 13:41 → EDINP 18:32

== ENCOUNTER 2021-10-31 20:08 | Inpatient (IN) ==
[2021-10-31] MEDS ORDERED: OPTIRAY 320 125ml IV ONE (20:19)
--- NOTE | 2021-10-31 20:24 | CT Scan Report ---
CT OF THE HEAD WITHOUT CONTRAST CLINICAL HISTORY: Stroke Like Symptoms. Right sided facial droop. COMPARISON STUDY: MRI of the brain September 18, 2017. Head CT March 04, 2021. TECHNIQUE: Helical axial images of the head were obtained without IV contrast. Automated exposure con trol was utilized for the study. A dose lowering technique was utilized adhering to the principles o f ALARA. FINDINGS: No acute intracranial hemorrhage, midline shift or mass effect is present. Minimal bibasila r basal ganglia calcification. White matter hypodensity suggests small vessel disease. The ventricula r system is unremarkable. The basal cisterns are patent. No extra-axial collections are present. Ther e are no findings to suggest acute dural sinus thrombosis or acute territorial infarct. No significan t calvarial abnormalities are present. Visualized portions of the sinuses and mastoid air cells are c lear. IMPRESSION: No acute intracranial findings. ACT 112: Negative or not required by law. Electronically signed by: Sukhi Bryant M.D. 10/31/2021 8:19 PM
[2021-10-31] MEDS ORDERED: VANCOMYCIN HCL 2,500 MG in SODIUM CHLORIDE 0.9% 500 ML IV ONE (20:33)
[2021-10-31] MEDS ORDERED: PIPERACILLIN/TAZOBACTAM 4.5 GM/120 ML BAG IV ONE (20:33)
[2021-10-31] MEDS ORDERED: VANCOMYCIN CONSULT ACTIVE PRN (20:33)
--- NOTE | 2021-10-31 20:33 | CT Scan Report ---
CT ANGIOGRAPHY OF THE NECK WITH CONTRAST CLINICAL HISTORY: Stroke Like Symptoms. Right facial droop. COMPARISON STUDY: Cervical spine CT December 03, 2020. Technique: CT angiography of the carotid and vertebral arteries was obtained using Optiray and 3D rec onstruction on an independent workstation. NASCET criteria was utilized. Automated exposure control was utilized for the study. A dose lowering technique was utilized adhering to the principles of ALA RA. CT DOSE: 3398.54 mGy.cm Findings: No acute cervical spinal fracture is noted. There is extensive plaque within the bilateral common carotid and cervical internal carotid arteries. There is no stenosis of the right common carot id or cervical internal carotid arteries. There is severe stenosis of the proximal left internal hill tid artery although evaluation is difficult given extensive plaque. Vessel measures approximately 1.3 mm in caliber at site of stenosis and 4 mm in caliber distally. There is severe stenosis versus shor t segment occlusion of the proximal left external carotid artery. In addition, there is extensive sundeep cified plaque at the origin the right vertebral artery which results in severe stenosis versus short segment occlusion and distal reconstitution. Moderate plaque of the origin of the left vertebral minerva ry is noted with without significant stenosis. No dissection within the neck is noted. No aneurysm is noted. IMPRESSION: 1. Extensive calcified plaque within the bilateral common carotid and cervical internal carotid arter ies. 2. Suspected severe stenosis at the origin of the left internal carotid artery of approximately 80%. Evaluation difficult given extensive calcified plaque. 3. Short segment occlusion versus severe stenosis of the proximal right vertebral artery due to exten sive calcified plaque. 4. Short segment occlusion versus severe stenosis of the proximal left external carotid artery. ACT 112: Negative or not required by law. Electronically signed by: Sukhi Bryant M.D. 10/31/2021 8:31 PM
--- NOTE | 2021-10-31 20:36 | CT Scan Report ---
CTA ANGIOGRAPHY OF THE HEAD CLINICAL HISTORY: Stroke Like Symptoms COMPARISON STUDY: Head CT March 04, 2021. TECHNIQUE: Helical axial images of the head were obtained following uneventful intravenous administr ation of 115 cc of Optiray. Sagittal and coronal reconstructions were viewed as well as maximal inten sity projections on an independent 3-D workstation. Automated exposure control was utilized for the study. A dose lowering technique was utilized adhering to the principles of ALARA. FINDINGS: There is extensive calcified plaque within the bilateral cavernous carotids. This results i n mild to moderate stenosis of the left cavernous carotid. No intracranial aneurysm is identified. Th ere is no central vessel occlusion. Posterior circulation is intact. Please note that the head CT elizabeth l be reported separately. IMPRESSION: 1. No central vessel occlusion. No intracranial aneurysm. 2. Extensive calcified plaque within bilateral cavernous carotids. Mild to moderate stenosis of the l eft cavernous carotid. ACT 112: Negative or not required by law. Electronically signed by: Sukhi Bryant M.D. 10/31/2021 8:34 PM
--- NOTE | 2021-10-31 20:39 | Emergency Department Note ---
Impression & Plan Acute ischemic stroke, Emphysematous pyelonephritis, Acute hypotension, Carotid arterial disease ED Provider Note NAME: JENIFFER JUNIOR AGE: 71 SEX: M : 1950 ARRIVES VIA: Ambulance INFORMANT: Patient, EMS, the patient's daughter ED PROVIDER(S): Venkata Kang DO CHIEF COMPLAINT: Strokelike symptoms HPI: The patient is a 71-year-old male who presented to the emergency department by ambulance for evaluation of strokelike symptoms. The patient had acute onset of strokelike symptoms at approximately 7 PM this evening. The patient does take oral anticoagulation in the form of apixaban. He last took his dose this m orning around 10 AM. He started having flank pain as well as nausea vomiting. He had multiple episodes of emesis. Patient denies having any chest pain. He denies having any difficulty breathing. He has lower extremity swelling which is not new for him. The patient states he has been compliant with his outpatient medications otherwise. He has dialysis last on Friday of this week and is due for dialysis tomorrow. He has had no fever. The patient states that he does have a history of atrial fibrillation. He states his blood sugars have been normal for him over the last few days. He notices no hypoglycemia. ROS: See above HPI for pertinent positives & negatives. A total of 10 systems reviewed and were otherwise negative. PAST MEDICAL HISTORY: See Below PAST SURGICAL HISTORY: See Below FAMILY HISTORY: See Below SOCIAL HISTORY: See Below HOME MEDICATIONS: See Below ALLERGIES: See Below VITALS: See Below PHYSICAL EXAMINATION: GENERAL: The patient is awake and alert. He is somewhat anxious appearing. EYES: The conjunctivae are clear. The pupils are round and reactive. EARS, NOSE, MOUTH AND THROAT: The nose is without any evidence of any deformity. Mucous membranes are dry. NECK: The neck is nontender and supple. RESPIRATORY: Normal respiratory effort is noted there is no evidence of wheezing rhonchi or rales CARDIOVASCULAR: Irregular heart sounds are noted auscultation. There is no definite murmur. GASTROINTESTINAL: The abdomen is soft and mildly distended. There is no guarding or rigidity. MUSCULOSKELETAL/EXTREMITIES: There is no evidence of gross deformity full range of motion is noted in the hips and shoulders. SKIN: The skin is warm and dry. Trace pedal edema was noted bilaterally. NEUROLOGIC: Patient is awake alert and oriented to person place and situation. The patient is able to hold each leg off the bed for greater than 5 seconds. The patient does have a right-sided facial droop with forehead sparing. Speech is dysarthric and pressured. MEDICAL DECISION MAKING: The patient is a 71-year-old male who presented to the emergency department for an evaluation of strokelike symptoms. The patient's daughter called 911 when the patient started having some difficulty speaking and was noted to have a right-sided facial droop. I received a prehospital notification about the p atient. He was made a stroke alert prior to arrival. I discussed his condition with the on-call telestroke neurologist from [facility]. He did not appear to have signs of hemorrhagic stroke. He did have multiple areas in his vasculature which could be consistent with disease. He was hypotensive. This prompted further work-up. Ultimately the patient was found to have signs of a s ignificant urinary tract infection associated with air in the collecting system likely consistent with emphysematous pyelonephritis. He was treated with IV fluids and IV antibiotics. He was reevaluated multiple times. I discussed his condition with the on-call [facility] hospitalist. They have agreed to evaluate the patient in the emergency department for further management and disposition. Triage Nursing notes reviewed. Prior medical records reviewed Vital Signs: reviewed and remarkable for initial hypotension. Differential diagnosis: Infection, dehydration, metabolic abnormality, hypo/hyperglycemia, electrolyte disturbance, anemia, hypoxia, cardiac sources, intracerebral event, toxicologic, neurologic, as well as other pathologies. ER treatment provided: See below Diagnostics interpreted by me: ECG: EKG was obtained in the emergency department. My interpretation is atrial fibrillation at 108 bpm. There is no ectopy. Nonspecific inferior and lateral ST depressions with T wave abnormalities were noted. This was compared to a tracing from March 04, 2021. No significant changes were noted. Cardiac Monitoring: An order was placed for continuous cardiac monitoring. The monitor shows a rate of 98 bpm with atrial fibrillation Laboratory studies: As stated above and show below. Imaging studies: See below Consultation(s): I discussed this case with Dr. Reynoso who is on-call for the [facility] telestroke neurology group. I discussed this case with Dr. Chavira is on-call for the [facility]ist group. ED COURSE: Procedures: none Critical Care: I have personally spent greater than 45 minutes of critical care time in the direct management of this patient. This includes bedside care, interpretation of diagnostic studies, and testing, discussion with consultants, patient, and family members, and other required patient management activities. This 45 minutes is in excess of all separately billable procedures. 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 Beliefs That Will Affect Care: None marital status: Current Living Situation: Other Current Living Situation Comment: daughter lives w/ patient current occupational status: retired Feels Safe at Home: Yes Assistive Devices: Glasses Allergies Allergies Allergy/AdvReac Type Severity Reaction Status Date / Time amlodipine AdvReac Severe FLU Verified 10/31/21 21:24 [facility] Home Meds Home Medications Medication Instructions Recorded Confirmed atorvastatin 40 mg tablet (Lipitor) 40 mg PO HS 08/17/20 10/31/21 lidocaine-prilocaine 2.5 %-2.5 % 1 applic topical DIRECTED 08/17/20 10/31/21 topical cream vit B complx, C-iron 8 mg-folic 1 tab PO DAILY 08/17/20 10/31/21 acid 800 mcg-D3 1,000 unit-zinc tablet (ProRenal) calcium acetate(phosphat bind) 667 667 mg PO .QSUPPER 10/31/21 10/31/21 mg capsule Previous Rx's Medication Instructions Recorded apixaban 5 mg tablet (Eliquis) 5 mg PO BID #60 tabs 08/06/21 Results & Data (ED) Vital Signs Vital Signs - 24 hr 10/31/21 20:18 10/31/21 20:31 10/31/21 20:33 Temperature Temperature Source Pulse Rate 114 H Pulse Rate [Apical] 101 H 99 H Pulse Rhythm [Apical] Regular Respiratory Rate 21 26 H 27 H Respiratory Effort / Characteristics Non-Labored Respiratory Depth Normal Normal Normal Blood Pressure 119/66 Blood Pressure [Right Arm] 119/66 Blood Pressure Mean 83 Blood Pressure Mean [Right Arm] 83 Pulse Oximetry 96 93 93 Oxygen Delivery Method Room Air Room Air Room Air Sepsis Recent Fever Within 48 Hours No Sepsis New/Unexplained Change in Mental Status Yes Sepsis Action Taken by Nursing No Action Required 10/31/21 22:07 10/31/21 22:41 Temperature 37.1 C Temperature Source Oral Pulse Rate Pulse Rate [Apical] 98 H Pulse Rhythm [Apical] Irregular Respiratory Rate Respiratory Effort / Characteristics Respiratory Depth Blood Pressure Blood Pressure [Right Arm] 145/72 H Blood Pressure Mean Blood Pressure Mean [Right Arm] 96 Pulse Oximetry 92 Oxygen Delivery Method Room Air Sepsis Recent Fever Within 48 Hours Sepsis New/Unexplained Change in Mental Status Sepsis Action Taken by Prison Medications Current Medication List: was personally reviewed by me Laboratory Data Attestation: I reviewed the patient's lab results. Result diagrams: 10/31/21 20:47 10/31/21 20:47 Lab Results 10/31/21 10/31/21 10/31/21 Range/Units 20:31 20:47 20:47 WBC 19.87 H (4.8-10.8) K/ul RBC 3.65 L (4.63-6.08) M/uL Hgb 11.2 L (14.0-18.0) g/dl POC Hgb (14.0-18.0) g/dl Hct 34.5 L (40.1-51.0) % POC Hct (42-52) % MCV 94.5 (80.0-100.0) fL MCH 30.7 (25.0-34.0) pg MCHC 32.5 (32.0-36.0) g/dL RDW Std Deviation 45.8 (36.4-46.3) fL RDW Coeff of Mukul 13.4 (11.5-14.5) % Plt Count 197 (130-400) K/uL MPV 10.3 (9.4-12.4) fL Immature Gran % (Auto) 0.9 % Neut % (Auto) 89.2 % Lymph % (Auto) 2.2 % Desha % (Auto) 7.6 % Eos % (Auto) 0.0 % Baso % (Auto) 0.1 % Neut # (Auto) 17.72 H (1.4-6.5) K/uL Lymph # (Auto) 0.44 L (1.2-3.4) K/uL Desha # (Auto) 1.52 H (0.24-0.82) K/uL Eos # (Auto) 0.00 (0-0.50) K/uL Baso # (Auto) 0.02 (0-0.2) K/uL Immature Gran # (Auto) 0.17 H (0.00-0.02) K/uL ESR (0-20) mm/hr PT 11.6 (9.0-12.0) Seconds INR 1.1 (0.9-1.1) APTT 26.2 (21.0-31.0) Seconds PTT Ratio 1.0 POC Sodium (135-144) mmol/L Sodium (136-145) mmol/L POC Potassium (3.3-5.0) mmol/L Potassium (3.5-5.1) mmol/L POC Chloride (101-112) mmol/L Chloride (98-107) mmol/L Carbon Dioxide (21-32) mmol/L POC Total CO2 (24-31) mmol/L Anion Gap (3-11) POC Anion Gap (16-25) mmol/L POC BUN (7-18) mg/dl BUN (6-23) mg/dl Creatinine (0.6-1.4) mg/dl POC Creatinine (0.6-1.3) mg/dl Est Cr Clr Drug Dosing ml/min Est GFR ( Amer) ml/min Est GFR (Non-Af Amer) ml/min BUN/Creatinine Ratio (10-20) Glucose (70-99(Fasting)) mg/dl POC Glucose 212 H (70-99) mg/dl POC Glucose (other) (70-99) mg/dl Calcium (8.5-10.1) mg/dl POC Ioniz Calcium Shira (1.12-1.32) mmol/l Magnesium (1.7-2.4) mg/dl Total Bilirubin (0.2-1.0) mg/dl AST (13-39) U/L ALT (7-52) U/L Alkaline Phosphatase (34-104) U/L Troponin I High Sens (0-20) pg/ml C-Reactive Protein (0-0.5) mg/dl Total Protein (6.0-8.3) gm/dl Albumin (3.4-5.0) gm/dl Globulin (2.5-4.0) gm/dl Albumin/Globulin Ratio (0.9-2) Procalcitonin (0-0.5) ng/ml Urine Color Urine Appearance (Clear) Urine pH (4.5-7.5) Ur Specific [place]hton (1.000-1.030) Urine Protein (Negative) Urine Glucose (UA) (Negative) Urine Ketones (Negative) Urine Blood (Negative) Urine Nitrite (Negative) Urine Bilirubin (Negative) Urine Urobilinogen (Negative) Ur Leukocyte Esterase (Negative) Urine WBC (Auto) (0-5) /hpf Urine RBC (Auto) (0-4) /hpf U Hyaline Cast (Auto) (0-5) /lpf U Epithel Cells (Auto) (0-5) /lpf Urine Bacteria (Auto) (Negative) Urine Yeast SARS-CoV-2, RNA, NAAT (NEGATIVE) 10/31/21 10/31/21 10/31/21 Range/Units 20:47 20:47 20:47 WBC (4.8-10.8) K/ul RBC (4.63-6.08) M/uL Hgb (14.0-18.0) g/dl POC Hgb (14.0-18.0) g/dl Hct (40.1-51.0) % POC Hct (42-52) % MCV (80.0-100.0) fL MCH (25.0-34.0) pg MCHC (32.0-36.0) g/dL RDW Std Deviation (36.4-46.3) fL RDW Coeff of Mukul (11.5-14.5) % Plt Count (130-400) K/uL MPV (9.4-12.4) fL Immature Gran % (Auto) % Neut % (Auto) % Lymph % (Auto) % Desha % (Auto) % Eos % (Auto) % Baso % (Auto) % Neut # (Auto) (1.4-6.5) K/uL Lymph # (Auto) (1.2-3.4) K/uL Desha # (Auto) (0.24-0.82) K/uL Eos # (Auto) (0-0.50) K/uL Baso # (Auto) (0-0.2) K/uL Immature Gran # (Auto) (0.00-0.02) K/uL ESR 50 H (0-20) mm/hr PT (9.0-12.0) Seconds INR (0.9-1.1) APTT (21.0-31.0) Seconds PTT Ratio POC Sodium (135-144) mmol/L Sodium 136 (136-145) mmol/L POC Potassium (3.3-5.0) mmol/L Potassium 4.7 (3.5-5.1) mmol/L POC Chloride (101-112) mmol/L Chloride 98 (98-107) mmol/L Carbon Dioxide 26 (21-32) mmol/L POC Total CO2 (24-31) mmol/L Anion Gap 12 H (3-11) POC Anion Gap (16-25) mmol/L POC BUN (7-18) mg/dl BUN 52 H (6-23) mg/dl Creatinine 5.51 H* (0.6-1.4) mg/dl POC Creatinine (0.6-1.3) mg/dl Est Cr Clr Drug Dosing 15.6 ml/min Est GFR ( Amer) 11.1 ml/min Est GFR (Non-Af Amer) 9.6 ml/min BUN/Creatinine Ratio 9.4 L (10-20) Glucose 206 H (70-99(Fasting)) mg/dl POC Glucose (70-99) mg/dl POC Glucose (other) (70-99) mg/dl Calcium 8.6 (8.5-10.1) mg/dl POC Ioniz Calcium Shira (1.12-1.32) mmol/l Magnesium 1.7 (1.7-2.4) mg/dl Total Bilirubin 0.5 (0.2-1.0) mg/dl AST 18 (13-39) U/L ALT 11 (7-52) U/L Alkaline Phosphatase 81 (34-104) U/L Troponin I High Sens 20.6 H (0-20) pg/ml C-Reactive Protein 1.89 H (0-0.5) mg/dl Total Protein 6.4 (6.0-8.3) gm/dl Albumin 3.6 (3.4-5.0) gm/dl Globulin 2.8 (2.5-4.0) gm/dl Albumin/Globulin Ratio 1.3 (0.9-2) Procalcitonin 2.29 H (0-0.5) ng/ml Urine Color Urine Appearance (Clear) Urine pH (4.5-7.5) Ur Specific [place]hton (1.000-1.030) Urine Protein (Negative) Urine Glucose (UA) (Negative) Urine Ketones (Negative) Urine Blood (Negative) Urine Nitrite (Negative) Urine Bilirubin (Negative) Urine Urobilinogen (Negative) Ur Leukocyte Esterase (Negative) Urine WBC (Auto) (0-5) /hpf Urine RBC (Auto) (0-4) /hpf U Hyaline Cast (Auto) (0-5) /lpf U Epithel Cells (Auto) (0-5) /lpf Urine Bacteria (Auto) (Negative) Urine Yeast SARS-CoV-2, RNA, NAAT (NEGATIVE) 10/31/21 10/31/21 10/31/21 Range/Units 20:52 21:00 21:03 WBC (4.8-10.8) K/ul RBC (4.63-6.08) M/uL Hgb (14.0-18.0) g/dl POC Hgb 11.6 L (14.0-18.0) g/dl Hct (40.1-51.0) % POC Hct 34 L (42-52) % MCV (80.0-100.0) fL MCH (25.0-34.0) pg MCHC (32.0-36.0) g/dL RDW Std Deviation (36.4-46.3) fL RDW Coeff of Mukul (11.5-14.5) % Plt Count (130-400) K/uL MPV (9.4-12.4) fL Immature Gran % (Auto) % Neut % (Auto) % Lymph % (Auto) % Desha % (Auto) % Eos % (Auto) % Baso % (Auto) % Neut # (Auto) (1.4-6.5) K/uL Lymph # (Auto) (1.2-3.4) K/uL Desha # (Auto) (0.24-0.82) K/uL Eos # (Auto) (0-0.50) K/uL Baso # (Auto) (0-0.2) K/uL Immature Gran # (Auto) (0.00-0.02) K/uL ESR (0-20) mm/hr PT (9.0-12.0) Seconds INR (0.9-1.1) APTT (21.0-31.0) Seconds PTT Ratio POC Sodium 137 (135-144) mmol/L Sodium (136-145) mmol/L POC Potassium 5.0 (3.3-5.0) mmol/L Potassium (3.5-5.1) mmol/L POC Chloride 98 L (101-112) mmol/L Chloride (98-107) mmol/L Carbon Dioxide (21-32) mmol/L POC Total CO2 28 (24-31) mmol/L Anion Gap (3-11) POC Anion Gap 16.0 (16-25) mmol/L POC BUN 45 H (7-18) mg/dl BUN (6-23) mg/dl Creatinine (0.6-1.4) mg/dl POC Creatinine 6.2 H* (0.6-1.3) mg/dl Est Cr Clr Drug Dosing ml/min Est GFR ( Amer) ml/min Est GFR (Non-Af Amer) ml/min BUN/Creatinine Ratio (10-20) Glucose (70-99(Fasting)) mg/dl POC Glucose (70-99) mg/dl POC Glucose (other) 212 H (70-99) mg/dl Calcium (8.5-10.1) mg/dl POC Ioniz Calcium Shira 1.04 L (1.12-1.32) mmol/l Magnesium (1.7-2.4) mg/dl Total Bilirubin (0.2-1.0) mg/dl AST (13-39) U/L ALT (7-52) U/L Alkaline Phosphatase (34-104) U/L Troponin I High Sens (0-20) pg/ml C-Reactive Protein (0-0.5) mg/dl Total Protein (6.0-8.3) gm/dl Albumin (3.4-5.0) gm/dl Globulin (2.5-4.0) gm/dl Albumin/Globulin Ratio (0.9-2) Procalcitonin (0-0.5) ng/ml Urine Color Deport Urine Appearance Turbid A (Clear) Urine pH 5.5 (4.5-7.5) Ur Specific [place]hton 1.029 (1.000-1.030) Urine Protein 4+ H (Negative) Urine Glucose (UA) Negative (Negative) Urine Ketones Trace H (Negative) Urine Blood 3+ H (Negative) Urine Nitrite Negative (Negative) Urine Bilirubin 1+ H (Negative) Urine Urobilinogen Negative (Negative) Ur Leukocyte Esterase 3+ H (Negative) Urine WBC (Auto) >30 H (0-5) /hpf Urine RBC (Auto) >30 H (0-4) /hpf U Hyaline Cast (Auto) 1-5 (0-5) /lpf U Epithel Cells (Auto) >30 H (0-5) /lpf Urine Bacteria (Auto) 4+ H (Negative) Urine Yeast Not Reportable SARS-CoV-2, RNA, NAAT NEGATIVE (NEGATIVE) 10/31/21 Range/Units 22:37 WBC (4.8-10.8) K/ul RBC (4.63-6.08) M/uL Hgb (14.0-18.0) g/dl POC Hgb (14.0-18.0) g/dl Hct (40.1-51.0) % POC Hct (42-52) % MCV (80.0-100.0) fL MCH (25.0-34.0) pg MCHC (32.0-36.0) g/dL RDW Std Deviation (36.4-46.3) fL RDW Coeff of Mukul (11.5-14.5) % Plt Count (130-400) K/uL MPV (9.4-12.4) fL Immature Gran % (Auto) % Neut % (Auto) % Lymph % (Auto) % Desha % (Auto) % Eos % (Auto) % Baso % (Auto) % Neut # (Auto) (1.4-6.5) K/uL Lymph # (Auto) (1.2-3.4) K/uL Desha # (Auto) (0.24-0.82) K/uL Eos # (Auto) (0-0.50) K/uL Baso # (Auto) (0-0.2) K/uL Immature Gran # (Auto) (0.00-0.02) K/uL ESR (0-20) mm/hr PT (9.0-12.0) Seconds INR (0.9-1.1) APTT (21.0-31.0) Seconds PTT Ratio POC Sodium (135-144) mmol/L Sodium (136-145) mmol/L POC Potassium (3.3-5.0) mmol/L Potassium (3.5-5.1) mmol/L POC Chloride (101-112) mmol/L Chloride (98-107) mmol/L Carbon Dioxide (21-32) mmol/L POC Total CO2 (24-31) mmol/L Anion Gap (3-11) POC Anion Gap (16-25) mmol/L POC BUN (7-18) mg/dl BUN (6-23) mg/dl Creatinine (0.6-1.4) mg/dl POC Creatinine (0.6-1.3) mg/dl Est Cr Clr Drug Dosing ml/min Est GFR ( Amer) ml/min Est GFR (Non-Af Amer) ml/min BUN/Creatinine Ratio (10-20) Glucose (70-99(Fasting)) mg/dl POC Glucose 215 H (70-99) mg/dl POC Glucose (other) (70-99) mg/dl Calcium (8.5-10.1) mg/dl POC Ioniz Calcium Shira (1.12-1.32) mmol/l Magnesium (1.7-2.4) mg/dl Total Bilirubin (0.2-1.0) mg/dl AST (13-39) U/L ALT (7-52) U/L Alkaline Phosphatase (34-104) U/L Troponin I High Sens (0-20) pg/ml C-Reactive Protein (0-0.5) mg/dl Total Protein (6.0-8.3) gm/dl Albumin (3.4-5.0) gm/dl Globulin (2.5-4.0) gm/dl Albumin/Globulin Ratio (0.9-2) Procalcitonin (0-0.5) ng/ml Urine Color Urine Appearance (Clear) Urine pH (4.5-7.5) Ur Specific [place] (1.000-1.030) Urine Protein (Negative) Urine Glucose (UA) (Negative) Urine Ketones (Negative) Urine Blood (Negative) Urine Nitrite (Negative) Urine Bilirubin (Negative) Urine Urobilinogen (Negative) Ur Leukocyte Esterase (Negative) Urine WBC (Auto) (0-5) /hpf Urine RBC (Auto) (0-4) /hpf U Hyaline Cast (Auto) (0-5) /lpf U Epithel Cells (Auto) (0-5) /lpf Urine Bacteria (Auto) (Negative) Urine Yeast SARS-CoV-2, RNA, NAAT (NEGATIVE) Administered Medications Vancomycin HCl 2,500 mg/ (Sodium Chloride) 550 mls @ 200 mls/hr IV NOW ONE Stop: 10/31/21 23:17 Last Admin: 10/31/21 21:26 Dose: 200 mls/hr Documented By: NICOLA Discontinued Medications Piperacillin Sod/Tazobactam Sod (Zosyn) 4.5 gm in 120 mls @ 240 mls/hr IV NOW ONE Stop: 10/31/21 21:02 Last Infusion: 10/31/21 21:26 Dose: 0 mls/hr Documented By: Admin: 10/31/21 20:54 Dose: 240 mls/hr Documented By: ANETA Sodium Chloride (Nss 1000ml) 1,000 mls @ 999 mls/hr IV .Q1H1M ONE Stop: 10/31/21 22:08 Last Admin: 10/31/21 21:15 Dose: 999 mls/hr Documented By: NICOLA Ioversol (Optiray 320 125ml) 115 ml IV ONCE ONE Stop: 10/31/21 20:20 Last Admin: 10/31/21 20:22 Dose: 115 ml Documented By: MARISELA Imaging Data Radiologist's Impression: Chest X-Ray 10/31/21 20:07 XR chest 1V portable CLINICAL HISTORY: Stroke Like Symptoms COMPARISON STUDY: Chest radiograph and chest CT March 04, 2021. FINDINGS: Cardiomegaly is noted. No evidence for pulmonary edema. Linear left midlung opacity reflects atelectasis. No consolidation to suggest pneumonia. There is no pneumothorax or pleural effusion. The appearance of the chest is unchanged. IMPRESSION: No acute cardiopulmonary findings. No change in appearance of the chest. ACT 112: Negative or not required by law. Electronically signed by: Sukhi Bryant M.D. 10/31/2021 9:[address] 10/31/21 20:07 CT OF THE HEAD WITHOUT CONTRAST CLINICAL HISTORY: Stroke Like Symptoms. Right sided facial droop. COMPARISON STUDY: MRI of the brain September 18, 2017. Head CT March 04, 2021. TECHNIQUE: Helical axial images of the head were obtained without IV contrast. Automated exposure control was utilized for the study. A dose lowering technique was utilized adhering to the principles of ALARA. FINDINGS: No acute intracranial hemorrhage, midline shift or mass effect is present. Minimal bibasilar basal ganglia calcification. White matter hypodensity suggests small vessel disease. The ventricular system is unremarkable. The basal cisterns are patent. No extra-axial collections are present. There are no findings to suggest acute dural sinus thrombosis or acute territorial infarct. No significant calvarial abnormalities are present. Visualized portions of the s inuses and mastoid air cells are clear. IMPRESSION: No acute intracranial findings. ACT 112: Negative or not required by law. Electronically signed by: Sukhi Bryant M.D. 10/31/2021 8:19 PM Head CTA 10/31/21 20:07 CTA ANGIOGRAPHY OF THE HEAD CLINICAL HISTORY: Stroke Like Symptoms COMPARISON STUDY: Head CT March 04, 2021. TECHNIQUE: Helical axial images of the head were obtained following uneventful intravenous administration of 115 cc of Optiray. Sagittal and coronal reconstructions were viewed as well as maximal intensity projections on an independent 3-D workstation. Automated exposure control was utilized for the study. A dose lowering technique was utilized adhering to the principles of ALARA. FINDINGS: There is extensive calcified plaque within the bilateral cavernous ca rotids. This results in mild to moderate stenosis of the left cavernous carotid. No intracranial aneurysm is identified. There is no central vessel occlusion. Posterior circulation is intact. Please note that the head CT will be reported separately. IMPRESSION: 1. No central vessel occlusion. No intracranial aneurysm. 2. Extensive calcified plaque within bilateral cavernous carotids. Mild to moderate stenosis of the left cavernous carotid. ACT 112: Negative or not required by law. Electronically signed by: Sukhi Bryant M.D. 10/31/2021 8:34 PM Neck CTA 10/31/21 20:07 CT ANGIOGRAPHY OF THE NECK WITH CONTRAST CLINICAL HISTORY: Stroke Like Symptoms. Right facial droop. COMPARISON STUDY: Cervical spine CT December 03, 2020. Technique: CT angiography of the carotid and vertebral arteries was obtained using Optiray and 3D reconstruction on an independent workstation. NASCET criteria was utilized. Automated exposure control was utilized for the study. A dose lowering technique was utilized adhering to the principles of ALARA. CT DOSE: 3398.54 mGy.cm Findings: No acute cervical spinal fracture is noted. There is extensive plaque within the bilateral common carotid and cervical internal carotid arteries. There is no stenosis of the right common carotid or cervical internal carotid arteries. There is severe stenosis of the proximal left internal carotid artery although evaluation is difficult given extensive plaque. Vessel measures approximately 1.3 mm in caliber at site of stenosis and 4 mm in caliber distally. There is severe stenosis versus short segment occlusion of the proximal left external carotid artery. In addition, there is extensive calcified plaque at the origin the right vertebral artery which results in severe stenosis versus short segment occlusion and distal reconstitution. Moderate plaque of the origin of the left vertebral artery is noted with without significant stenosis. No dissection within the neck is noted. No aneurysm is noted. IMPRESSION: 1. Extensive calcified plaque within the bilateral common carotid and cervical internal carotid arteries. 2. Suspected severe stenosis at the origin of the left internal carotid artery of approximately 80%. Evaluation difficult given extensive calcified plaque. 3. Short segment occlusion versus severe stenosis of the proximal right vertebral artery due to extensive calcified plaque. 4. Short segment occlusion versus severe stenosis of the proximal left external carotid artery. ACT 112: Negative or not required by law. Electronically signed by: Sukhi Bryant M.D. 10/31/2021 8:31 PM Abdomen/Pelvis CT 10/31/21 20:16 CT OF THE ABDOMEN AND PELVIS WITH CONTRAST CLINICAL HISTORY: Altered mental status. COMPARISON STUDY: CT of the abdomen and pelvis December 14, 2018. TECHNIQUE: Following IV administration of 115 mL of Optiray, axial images of the abdomen and pelvis were obtained from the lung bases to the proximal femurs. Images were reviewed in the axial, sagittal, and coronal planes. IV contrast was administered without complication. Automated exposure control was utilized for the study. A dose lowering technique was utilized adhering to the principles of ALARA. FINDINGS: No pneumatosis, free air or portal venous gas is present. There are no hepatic lesions. No biliary or pancreatic ductal dilatation is present. Size of the spleen is normal. Nodularity of the left adrenal gland is unchanged. This is benign. There is no evidence for a bowel obstruction. The appendix is normal. Colonic diverticulosis is noted without evidence for acute diverticulitis. Extensive atherosclerotic plaque of the abdominal aorta and branch vessels is noted. There is gas within the bladder. Bladder wall thickening is noted with mild adjacent infiltration. Of note, there is gas within the bilateral collecting systems and proximal left ureter. Numerous subcentimeter bilateral renal lesions are too small to characterize. No renal abscess is identified. No gas within the renal parenchyma is identified. No acute fracture is noted within visualized skeletal structures. Mild loss of height of the superior endplate of L1 is age indeterminate but probably chronic. This may be degenerative. IMPRESSION: 1. Gas within the bilateral collecting systems and proximal left ureter. In the absence of recent instrumentation, the findings are suggestive of emphysematous pyelitis. Correlation with urinalysis is recommended. Gas within the bladder lum en. 2. No bowel obstruction. No bowel wall thickening. Colonic diverticulosis without evidence for acute diverticulitis. 3. Extensive plaque of the abdominal aorta and branch vessels. ACT 112: Negative or not required by law. Electronically signed by: Sukhi Bryant M.D. 10/31/2021 8:[address] 10/31/21 20:16 CT OF THE CHEST WITH IV CONTRAST CLINICAL HISTORY: Altered mental status. COMPARISON STUDY: Chest CT March 04, 2021. TECHNIQUE: Following IV administration of 115 mL of Optiray, helical axial images of the chest were obtained. Sagittal and coronal reconstructions were viewed as well as maximal intensity projections on an independent 3-D workstation. Automated exposure control was utilized for the study. A dose lowering technique was utilized adhering to the principles of ALARA. FINDINGS: No enlarged axillary, mediastinal or hilar lymph nodes are present. Note is made of moderate cardiomegaly. No significant pericardial effusion is present. There is extensive coronary artery calcification. No pneumothorax or pleural effusion is noted. Lungs are suboptimally assessed due to respiratory motion. Linear and groundglass opacities favor atelectasis. Old bilateral rib fractures are noted. Extensive anterior osteophytosis of the thoracic spine is noted. No acute fractures are identified within the thorax. Abdomen and pelvis CT will be reported separately. No central pulmonary emboli. Calcified granulomas within the lungs are noted. IMPRESSION: 1. No acute process within the chest. 2. Cardiomegaly. Extensive coronary artery calcification. 3. Ground glass opacities within the lungs which favor atelectasis. No consolidation to suggest pneumonia. ACT 112: Negative or not required by law. Electronically signed by: Sukhi Bryant M.D. 10/31/2021 8:39 PM Discharge Plan Visit Data Chief Complaint: Stroke Alert Stated Complaint: stroke alert ED Provider: Venkata Kang Discharge Problem: Acute ischemic stroke, Emphysematous pyelonephritis, Acute hypotension, Carotid arterial disease Patient Disposition: Being Evaluated by Hospitalist Forms Stand Alone Forms: My [facility] Prescriptions Prescriptions: No Action Eliquis 5 mg tablet 5 mg PO BID Qty: 60 11RF calcium acetate(phosphat bind) 667 mg capsule 667 mg PO .QSUPPER ProRenal 8 mg iron-800 mcg-1,000 unit tablet 1 tab PO DAILY atorvastatin [Lipitor] 40 mg tablet 40 mg PO HS lidocaine-prilocaine 2.5-2.5 % cream 1 applic topical DIRECTED Rx Instructions: APPLY SMALL AMT TO ACCESS SITE BEFORE DIALYSIS Referrals Referrals: PCP,NO [Primary Care Provider] -
--- NOTE | 2021-10-31 20:42 | CT Scan Report ---
CT OF THE CHEST WITH IV CONTRAST CLINICAL HISTORY: Altered mental status. COMPARISON STUDY: Chest CT March 04, 2021. TECHNIQUE: Following IV administration of 115 mL of Optiray, helical axial images of the chest were obtained. Sagittal and coronal reconstructions were viewed as well as maximal intensity projections on an independent 3-D workstation. Automated exposure control was utilized for the study. A dose lo wering technique was utilized adhering to the principles of ALARA. FINDINGS: No enlarged axillary, mediastinal or hilar lymph nodes are present. Note is made of modera te cardiomegaly. No significant pericardial effusion is present. There is extensive coronary artery c alcification. No pneumothorax or pleural effusion is noted. Lungs are suboptimally assessed due to re spiratory motion. Linear and groundglass opacities favor atelectasis. Old bilateral rib fractures are noted. Extensive anterior osteophytosis of the thoracic spine is noted. No acute fractures are ident ified within the thorax. Abdomen and pelvis CT will be reported separately. No central pulmonary embo li. Calcified granulomas within the lungs are noted. IMPRESSION: 1. No acute process within the chest. 2. Cardiomegaly. Extensive coronary artery calcification. 3. Ground glass opacities within the lungs which favor atelectasis. No consolidation to suggest pneum onia. ACT 112: Negative or not required by law. Electronically signed by: Sukhi Bryant M.D. 10/31/2021 8:39 PM
--- NOTE | 2021-10-31 20:51 | CT Scan Report ---
CT OF THE ABDOMEN AND PELVIS WITH CONTRAST CLINICAL HISTORY: Altered mental status. COMPARISON STUDY: CT of the abdomen and pelvis December 14, 2018. TECHNIQUE: Following IV administration of 115 mL of Optiray, axial images of the abdomen and pelvis w ere obtained from the lung bases to the proximal femurs. Images were reviewed in the axial, sagittal, and coronal planes. IV contrast was administered without complication. Automated exposure control w as utilized for the study. A dose lowering technique was utilized adhering to the principles of NORMA Best. FINDINGS: No pneumatosis, free air or portal venous gas is present. There are no hepatic lesions. No biliary or pancreatic ductal dilatation is present. Size of the spleen is normal. Nodularity of the l eft adrenal gland is unchanged. This is benign. There is no evidence for a bowel obstruction. The kyle endix is normal. Colonic diverticulosis is noted without evidence for acute diverticulitis. Extensive atherosclerotic plaque of the abdominal aorta and branch vessels is noted. There is gas within the b ladder. Bladder wall thickening is noted with mild adjacent infiltration. Of note, there is gas withi n the bilateral collecting systems and proximal left ureter. Numerous subcentimeter bilateral renal l esions are too small to characterize. No renal abscess is identified. No gas within the renal parench yma is identified. No acute fracture is noted within visualized skeletal structures. Mild loss of hei ght of the superior endplate of L1 is age indeterminate but probably chronic. This may be degenerativ e. IMPRESSION: 1. Gas within the bilateral collecting systems and proximal left ureter. In the absence of recent ins trumentation, the findings are suggestive of emphysematous pyelitis. Correlation with urinalysis is r ecommended. Gas within the bladder lumen. 2. No bowel obstruction. No bowel wall thickening. Colonic diverticulosis without evidence for acute diverticulitis. 3. Extensive plaque of the abdominal aorta and branch vessels. ACT 112: Negative or not required by law. Electronically signed by: Sukhi Bryant M.D. 10/31/2021 8:48 PM
--- NOTE | 2021-10-31 21:02 | XRay Report ---
XR chest 1V portable CLINICAL HISTORY: Stroke Like Symptoms COMPARISON STUDY: Chest radiograph and chest CT March 04, 2021. FINDINGS: Cardiomegaly is noted. No evidence for pulmonary edema. Linear left midlung opacity reflect s atelectasis. No consolidation to suggest pneumonia. There is no pneumothorax or pleural effusion. T he appearance of the chest is unchanged. IMPRESSION: No acute cardiopulmonary findings. No change in appearance of the chest. ACT 112: Negative or not required by law. Electronically signed by: Sukhi Bryant M.D. 10/31/2021 9:00 PM
[2021-10-31 21:03] LABS: Basophils # (auto) 0.02 K/uL (0-0.2); Basophils % (auto) 0.1 %; Hematocrit (blood only) 34.5 % (40.1-51.0); Hemoglobin 11.2 g/dl (14.0-18.0); Immature Granulocytes # (auto) 0.17 K/uL (0.00-0.02); Immature Granulocytes % (auto) 0.9 %; Lymphocytes # (auto) 0.44 K/uL (1.2-3.4); Lymphocytes % (auto) 2.2 %; Mean Corpuscular Hemoglobin 30.7 pg (25.0-34.0); Mean Corpuscular Hgb Conc 32.5 g/dL (32.0-36.0); Mean Corpuscular Volume 94.5 fL (80.0-100.0); Mean Platelet Volume 10.3 fL (9.4-12.4); Monocytes # (auto) 1.52 K/uL (0.24-0.82); Monocytes % (auto) 7.6 %; Neutrophils # (auto) 17.72 K/uL (1.4-6.5); Neutrophils % (auto) 89.2 %; Platelet Count 197 K/uL (130-400); RDW Coefficient of Variation 13.4 % (11.5-14.5); RDW Standard Deviation 45.8 fL (36.4-46.3); Red Blood Count 3.65 M/uL (4.63-6.08); White Blood Count 19.87 K/ul (4.8-10.8)
[2021-10-31 21:06] LABS: iSTAT Creatinine 6.2 mg/dl (0.6-1.3); iSTAT Hemoglobin 11.6 g/dl (14.0-18.0); iSTAT Ionized Calcium 1.04 mmol/l (1.12-1.32)
[2021-10-31] MEDS ORDERED: SODIUM CHLORIDE 0.9% 1000ML 1,000 ML IV ONE (21:08)
[2021-10-31 21:22] LABS: INR 1.1 (0.9-1.1); Partial Thromboplastin Time 26.2 Seconds (21.0-31.0); Prothrombin Time 11.6 Seconds (9.0-12.0)
[2021-10-31 21:28] LABS: Appearance Urine Turbid (Clear); Bacteria Urine Automated 4+ (Negative); Blood Urine 3+ (Negative); Color Urine Orange; Epithelial Cell Urine Auto >30 /lpf (0-5); Glucose Urine UA Negative (Negative); Ketones Urine Trace (Negative); Leukocyte Esterase Urine 3+ (Negative); Nitrite Urine Negative (Negative); Protein Urine 4+ (Negative); Specific Gravity Urine 1.029 (1.000-1.030); Urobilinogen Urine Negative (Negative); WBC Urine Automated >30 /hpf (0-5); pH Urine 5.5 (4.5-7.5)
[2021-10-31 21:40] LABS: Bilirubin Urine 1+ (Negative)
--- NOTE | 2021-10-31 21:45 | History & Physical Report ---
Date of Service October 31, 2021 Assessment & Plan (1) Acute ischemic stroke: Plan: Patient is a 71-year-old male with multiple comorbidities who presented to the emergency room for concern of stroke. A stroke alert was called and as of yet a CT and CTA have not shown evidence of hemorrhagic or ischemic stroke. MRI is pending at the time of writing this note. Patient has focal neurologic deficit including facial droop on the right side and slurred speech. Patient did not qualify for clot busters due to being on Eliquis for blood thinner. Over the course of his current hospitalization it does seem that his neurological deficits are improving and patient is hemodynamically stable. Additionally he has been found that he has sepsis secondary to likely emphysematous pyelitis and has been started on broad-spectrum antibiotics. Acute ischemic stroke -Stroke symptoms began at 7 PM and patient did not qualify for clot busters -CT and CTA of the head did not reveal any evidence of ischemic or hemorrhagic stroke, MRI ordered and pending -If no evidence of stroke is found on MRI, likely to be TIA in the setting of sepsis (see below) with occlusion of multiple vessels including carotid and vertebral arteries. -CTA of the neck did show occlusive vessels that may have played a part in patient's current symptoms -Currently n.p.o., hold all oral medications at this time due to concern for aspiration given slurred speech and sagging palate -Consult speech to evaluate with swallow study -Consult neurology, appreciate recommendations -Neuro checks every 4 hours -Aspiration precautions -Daily stroke scale -Permissive hypertension, consider midodrine if systolic pressure is consistently below 120 -PT and OT consults after sepsis picture improves and patient can better tolerate mobility Occlusive arterial disease -On neck CTA patient was found to have severe stenosis of the left internal carotid artery, stenosis of the right vertebral artery, and stenosis of the proximal left external carotid artery -Consider vascular consult for possible intervention, however, symptoms are improving so consult was not placed at this time -Once speech pathology clears for swallow study, patient should be continued on high intensity statin Sepsis secondary to emphysematous pyelitis -Patient presents with elevated white count, tachycardia, tachypnea, elevated procalcitonin with positive urinalysis as the likely source -CT abdomen pelvis revealed gas within the bilateral collecting systems and proximal left ureter consistent with emphysematous pyelitis -This gas, however, could be consistent with a colovesical fistula -Consult urology to evaluate for fistula, appreciate recommendations -Started patient on cefepime and daptomycin for broad-spectrum coverage -If truly emphysematous pyelitis, there is high mortality with insufficient coverage -Lactate pending at the time of writing this note -Patient given 1.5 L of fluid in the ED, will hold off from additional fluids for now given good hemodynamic stability, with ESRD do not want to risk pulmonary edema -Daily CBC ESRD on dialysis -Patient typically gets dialysis on Friday, , Friday -Consult nephrology for hemodialysis, appreciate recommendations -Continue prorenal when cleared by speech -Daily BMP Atrial fibrillation -Not on any rate or rhythm control currently -Due to stroke symptoms with difficulty with swallowing, switched Eliquis to low-dose heparin infusion for anticoagulation -Last Eliquis dose was at 10 AM on 10/31 Type 2 diabetes -Diet controlled, no insulin required at this time -Blood sugar checks at mealtime -Last A1c was 6.9 on 10/18/2021 Hyperlipidemia -Statin held currently in the setting of n.p.o., restart high intensity statin when able -Consider switching atorvastatin 40 mg to 80 mg -Morning lipid panel Disposition: Admit to telemetry Diet: N.p.o. DVT prophylaxis: Heparin infusion CODE STATUS: Full code (2) Emphysematous pyelonephritis: (3) Carotid arterial disease: (4) Atrial fibrillation, permanent: (5) Syncope: (6) Type 2 diabetes mellitus with complications: (7) End stage renal disease: (8) Vitamin D deficiency: (9) Hyperlipidemia: History of Present Illness Chief Complaint: Stroke like symptoms Primary Care Provider: NO PCP Patient is a 71-year-old male with past medical history of ESRD receiving hemodialysis Friday, , Friday, type 2 diabetes mellitus with nephropathy, essential hypertension, hyperlipidemia, atrial fibrillation, and chronic anticoagulation on Eliquis who presented to the emergency room due to chief complaint of strokelike symptoms. Patient reports to me that this morning around 1:30 patient began having flank pain on the left side. Later in the morning he began having episodes of nausea and vomiting that seem to improve around 10 AM and patient felt overall fine for the remainder of the morning. Patient reports that his vomit consisted of only stomach acid/bile without any actual substance. Daughter then states that around 7 PM patient wanted to take a shower and the daughter had noted that it was taking a long time and she went to check on him. When she called to ask if he was all right, he only responded in mumbled words. Daughter went into the bathroom and found him hunched over in the shower supporting himself with the shower bar in the wall. Daughter guided the patient out of the shower and noticed when she was talking to him that he had slurred speech and facial droop. Daughter was concerned that the patient was having a stroke at that time called EMS. Prior to today starting at 1:30 AM, patient had no identifiable symptoms concerning for infection or kidney problems. Additionally reports dyspnea, however, this is a chronic issue for him and does not seem to be worse today compared to any other day. Denies any fevers, chills, chest pain, headache, or fatigue. Of note patient reports to me that for the past few years he has multiple episodes of difficulty with lightheadedness and presyncope with showering and standing from the seated position. Patient does not have a primary care provider and has not had this worked up. Denies having any previous episodes of strokelike symptoms in the past. ED course: Patient arrived via EMS and a stroke alert was called. Patient had head CT, head and neck CTA which had revealed severe stenosis of the left internal carotid artery, occlusion versus severe stenosis of the proximal right vertebral artery, occlusion versus severe stenosis of the proximal left external carotid artery. There is no hemorrhagic stroke identified and no criteria for ischemic stroke. MRI was ordered and pending at the time of writing this note. Blood work and revealed an elevated white count at 19.9 with a left shift, creatinine of 5.51, procalcitonin of 2.29, and a urinalysis suggestive of urinary tract infection. Troponin was mildly elevated at 20.6. Patient had noted the flank pain to the ED provider and at that point a CT of the abdomen and pelvis was done and it was found that there was gas within the bilateral collecting systems and left proximal ureter suggestive of emphysematous pyelitis. Lactate and ammonia level were also ordered after hospitalist was consulted Allergies Allergy/AdvReac Type Severity Reaction Status Date / Time amlodipine AdvReac Severe FLU Verified 10/31/21 21:24 [facility] Home Medications Medication Instructions Recorded Confirmed Type atorvastatin 40 mg tablet (Lipitor) 40 mg PO HS 08/17/20 10/31/21 History lidocaine-prilocaine 2.5 %-2.5 % 1 applic topical DIRECTED 08/17/20 10/31/21 History topical cream vit B complx, C-iron 8 mg-folic 1 tab PO DAILY 08/17/20 10/31/21 History acid 800 mcg-D3 1,000 unit-zinc tablet (ProRenal) apixaban 5 mg tablet (Eliquis) 5 mg PO BID #60 tabs 08/06/21 10/31/21 Rx calcium acetate(phosphat bind) 667 667 mg PO .QSUPPER 10/31/21 10/31/21 History mg capsule Past Med/Surg History Medical History Atrial fibrillation, permanent Diabetes type 2, controlled ESRD (end stage renal disease) on dialysis Fistula left arm Hyperlipidemia Hypertension Surgical History History of surgery on arm History of tooth extraction Family History Mother , age 65 of cancer -uncertain type Cancer Father , in his 50s of cancer Stomach cancer Esophagus cancer Cancer Cancer of bowel Sister Kidney stone Social History Smoking Status: Never smoker Second Hand Exposure: No; Hx Alcohol Use: Yes Alcohol type: beer Alcohol Intake Frequency: Monthly or Less Alcohol Intake Frequency Comment: 1 drink rarely Hx Substance Use: No Preferred Language: Malawian Communication Ability: Effective Reconciliation Accountant Required: No Beliefs That Will Affect Care: None marital status: Current Living Situation: Family Current Living Situation Comment: daughter lives w/ patient current occupational status: retired current occupation: retired age 64 from [employer] Feels Safe at Home: Yes Assistive Devices: None Review of Systems Review of Systems: All systems reviewed & are unremarkable except as noted in HPI & below Physical Exam Constitutional: well developed and + obese; no acute distress Eyes: PERRL, conjunctivae normal, anicteric sclerae Neck: trachea midline, no thyromegaly Respiratory: normal respiratory effort, lungs clear to auscultation Cardiovascular: RRR, no murmur, no edema Vessels: no JVD and no carotid bruit Gastrointestinal (Abdomen): normal bowel sounds, soft, nontender, no hepatosplenomegaly Musculoskeletal: no cyanosis or clubbing, extremities motor strength 5/5 Head/Neck/Chest: normocephalic and head atraumatic Skin: no rashes, warm and dry Neurologic: CN's II-XI intact bilaterally, moves all extremities, + focal motor deficit and awake Speech / Cognition: + abnormal speech Motor/Sensory: no sensory deficit Facial drooping on the right, palate sag on the right, slurred speech Psychiatric: Orientation: alert, oriented x 3 and cooperative Lymphatic: no cervical or axillary lymphadenopathy Results & Data Results & Data ([facility]) Vital Signs (Past 12 Hours) Vital Signs Pulse Pulse Resp BP BP Pulse Ox O2 Del Method 10/31/21 20:33 99 H 27 H 93 Room Air 10/31/21 20:31 101 H 26 H 119/66 93 Room Air 10/31/21 20:18 114 H 21 119/66 96 Room Air Supervising Physician Co-Signing Physician Notes Attending addendum: I have physically seen this patient, have supervised the medical residents activities, and agree with the H&P unless as otherwise noted. Assessment and Plan: Strokelike symptoms- CT head without acute ischemic or hemorrhagic event CTA head shows mild to moderate stenosis of cavernous carotid artery CTA neck shows severe stenosis of the left internal carotid artery origin at 80%. Proximal right vertebral artery occlusion versus severe stenosis Question whether borderline intermittent low blood pressure associated with infection and or dialysis may be triggering symptoms Stroke without tPA order set Emphysematous pyelitis- CT of abdomen and pelvis reveals gas within the bilateral collecting systems and proximal left ureter consistent with emphysematous pyelitis Patient does report sensation of gas being released during urination over the past few months Concern regarding possible colovesical fistula Admit on daptomycin and cefepime IV Consult urology ESR and HD- Consult nephrology for routine dialysis on Friday, and Friday Atrial fibrillation- Hold Eliquis Placed on low-dose heparin infusion Remaining orders and notations as noted (1) Carotid arterial disease Carotid artery disease type: unspecified Laterality: bilateral Qualified Code(s): I77.9 - Disorder of arteries and arterioles, unspecified
[2021-10-31 21:46] LABS: Albumin Globulin Ratio 1.3 (0.9-2); Albumin Level 3.6 gm/dl (3.4-5.0); BUN Creatinine Ratio 9.4 (10-20); Bilirubin,Total 0.5 mg/dl (0.2-1.0); C Reactive Protein 1.89 mg/dl (0-0.5); Calcium 8.6 mg/dl (8.5-10.1); Creatinine Clr Calc Pharmacy 15.6 ml/min; Est GFR (African American) 11.1 ml/min; Est GFR (Non-African American) 9.6 ml/min; Globulin 2.8 gm/dl (2.5-4.0); Magnesium 1.7 mg/dl (1.7-2.4); Potassium 4.7 mmol/L (3.5-5.1); Total Protein 6.4 gm/dl (6.0-8.3)
[2021-10-31 21:51] LABS: RBC Urine Automated >30 /hpf (0-4)
[2021-10-31 22:40] LABS: Troponin I High Sensitivity 20.6 pg/ml (0-20)
[2021-11-01] MEDS ORDERED: LIDOCAINE/PRILOCAINE 2.5% EA CRM EXT PRN (01:25)
[2021-11-01] MEDS ORDERED: ACETAMINOPHEN 325 MG TAB PO PRN (01:25)
[2021-11-01] MEDS ORDERED: PHARMACIST DISCHARGE MED REC CONSULT PRN (01:25)
[2021-11-01] MEDS ORDERED: Heparin IV Adult Wt-Based Low-Dose *NO* Bolus Protocol IV SCH (01:25)
[2021-11-01] MEDS: HEPARIN SODIUM/DEXTROSE 25,000 UNITS/500 ML BAG IV SCH (03:13)
[2021-11-01 05:07] LABS: Hematocrit (blood only) 33.9 % (40.1-51.0); Mean Corpuscular Hemoglobin 30.8 pg (25.0-34.0); Mean Corpuscular Hgb Conc 32.4 g/dL (32.0-36.0); Mean Platelet Volume 10.3 fL (9.4-12.4); Platelet Count 178 K/uL (130-400); RDW Coefficient of Variation 13.5 % (11.5-14.5); RDW Standard Deviation 47.1 fL (36.4-46.3); Red Blood Count 3.57 M/uL (4.63-6.08); White Blood Count 22.25 K/ul (4.8-10.8)
[2021-11-01 05:30] LABS: Basophils # (auto) 0.03 K/uL (0-0.2); Basophils % (auto) 0.1 %; Immature Granulocytes # (auto) 0.17 K/uL (0.00-0.02); Immature Granulocytes % (auto) 0.8 %; Lymphocytes # (auto) 0.82 K/uL (1.2-3.4); Lymphocytes % (auto) 3.7 %; Monocytes # (auto) 1.87 K/uL (0.24-0.82); Monocytes % (auto) 8.4 %; Neutrophils # (auto) 19.36 K/uL (1.4-6.5); Toxic Vacuolation 1+
[2021-11-01 05:34] LABS: BUN Creatinine Ratio 9.8 (10-20); Calcium 8.2 mg/dl (8.5-10.1); Chol HDL Ratio 3.3 (0-5); Creatinine Clr Calc Pharmacy 14.4 ml/min; Est GFR (African American) 10.2 ml/min; Est GFR (Non-African American) 8.8 ml/min; Potassium 5.3 mmol/L (3.5-5.1)
--- NOTE | 2021-11-01 06:04 | Urology Consultation ---
Date of Consultation November 01, 2021 Assessment & Plan (1) Emphysematous pyelonephritis: Patient has been admitted on the hospitalist service. From a urology perspective I discussed case with my attending physician Dr. Michael Aguirre and the following is recommended: Continue broad-spectrum antibiotics. The patient is receiving daptomycin and cefepime In the setting of acute stroke he would be preferable to avoid general anesthesia Therefore, is recommended the patient be transferred to a center where patient can undergo percutaneous nephrostomy tubes It does not appear the patient has an obvious colovesical fistula on available imaging but if this concern remains a colorectal evaluation would be in order -Continue care for other issues as directed by the primary service I discussed these recommendations with the hospitalist service. I discussed with the hospitalist attending as well as the on-call resident. Supervising Physician Co-Signing Physician Notes I have discussed Mr. Blue's case with Jesus Mckeon PA-C and agree with the above documentation. Gas in the bilateral upper urinary tracts raises concern for infection with a gas-forming organism. Definitive management of this would be placement of bilateral nephrostomy tubes for drainage of the upper tracts and source control, while treating with antibiotics. Although based on chart review it appears that pneumaturia has been going on for a while, without history of radiation, inflammatory bowel disease, bad diverticulitis, or other underlying cause, colovesical fistula seems unlikely. I would worry that ureteral stent placement would not provide as definitive drainage as nephrostomy tubes, and would also require the use of anesthesia for placement -in the setting of possible acute stroke, it would be better to avoid anesthesia. I recommend transfer to a tertiary center where placement of nephrostomy tubes would be a possibility. In the meantime he should continue broad-spectrum antibiotics based on culture and supportive care. History of Present Illness Reason for Consultation: Emphysematous pyelitis with concern for colovesical fistula Attending Physician: Davon Chavira MD History of Present Illness This is a 71-year-old male who was admitted to [facility] last evening. Prior to presentation to the emergency the patient began having left- sided flank pain. He then developed episodes of nausea and vomiting. The symp toms began the morning of 10/31/2021. The patient's symptoms somewhat abated but around 7 PM patient's daughter noted that the patient had garbled speech and she was concerned he was having a stroke prompting presentation to the emergency department. While in the emergency department a stroke alert was called and appropriate imaging was obtained which will be delineated below. In addition to being evaluated for possible stroke due to the patient's nausea and vomiting along with his left flank pain he did undergo a CT scan of the abdomen and pelvis which will be delineated below. This did show concern for emphysematous pyelitis. Urology has been consulted for concern for emphysematous pyelitis and concern for colovesical fistula. I did question the patient about urologic symptoms. He has end-stage renal disease and is on dialysis however he says he does make urine. He says that 2 days ago he did have some back pain in the left flank but this has improved but not completely resolved. He says he has had some nausea and vomiting but denies any fevers, shakes, or chills. He denies any dysuria but he says for the past "several months" he has noted pneumaturia. He denies any abdominal or suprapubic pain. In the emergency department the patient had labs and imaging which I independently reviewed. Labs included a CBC were white blood cell count is 22.2. Hemoglobin and hematocrit are 11.0 and 33.9. Platelet count is noted to be normal. He was noted to have an erythrocyte sedimentation rate of 50. Coagulation studies were normal. Chemistry profile showed sodium was 137 with a potassium of 5.3. BUN and creatinine were 58 and 5.9. Lactic acid level was not elevated. Magnesium was normal. C-reactive protein was 1.8. Urinalysis showed turbid urine which was negative for nitrites. It did show 3+ leukocyte Estrace and greater than 30 white blood cells per high-power field. There is also 4+ bacteria on the study. There is no evidence of COVID infection. Imagi ng included an x-ray that showed no evidence of pneumonia. CT scan of the head showed no acute intracranial findings. A CT angiogram of the head showed no evidence of aneurysm or vessel occlusion. A CT scan of the neck showed concern for severe stenosis at the origin of the left internal carotid artery. There is also short segment occlusion/stenosis of the proximal right vertebral artery. CT scan abdomen showed gas in the bilateral collecting systems and proximal left ureter. This was concerning for emphysematous pyelitis. No evidence of diverticulitis. A CT scan of the chest showed no acute process in the chest. An MRI of the brain has been ordered but is pending. At the time of my interview the patient was resting comfortably in bed and he was in no distress. He did continue to have some minor left-sided flank pain but says this has improved somewhat. Allergies Allergy/AdvReac Type Severity Reaction Status Date / Time amlodipine AdvReac Severe FLU Verified 10/31/21 21:24 [facility] Home Medications Medication Instructions Recorded Confirmed Type atorvastatin 40 mg tablet (Lipitor) 40 mg PO HS 08/17/20 10/31/21 History lidocaine-prilocaine 2.5 %-2.5 % 1 applic topical DIRECTED 08/17/20 10/31/21 History topical cream vit B complx, C-iron 8 mg-folic 1 tab PO DAILY 08/17/20 10/31/21 History acid 800 mcg-D3 1,000 unit-zinc tablet (ProRenal) apixaban 5 mg tablet (Eliquis) 5 mg PO BID #60 tabs 08/06/21 10/31/21 Rx calcium acetate(phosphat bind) 667 667 mg PO .QSUPPER 10/31/21 10/31/21 History mg capsule Patient History Medical History Atrial fibrillation, permanent Diabetes type 2, controlled ESRD (end stage renal disease) on dialysis Fistula left arm Hyperlipidemia Hypertension Surgical History History of surgery on arm History of tooth extraction Family History Mother Cancer Father Stomach cancer Esophagus cancer Cancer Cancer of bowel Sister Kidney stone Social History Smoking Status: Never smoker Second Hand Exposure: No; Do You Dip or Chew Tobacco: No; Tobacco Cessation Education Requested by Patient: No Hx Alcohol Use: No Hx Substance Use: No Preferred Language: Brazilian Communication Ability: Effective Thread Singer Required: No Beliefs That Will Affect Care: None marital status: Current Living Situation: Family Current Living Situation Comment: daughter lives w/ patient current occupational status: retired Other Information That Helps Us Care for You: No Feels Safe at Home: Yes Safety Concerns: Feels Safe At This Time Assistive Devices: Glasses and Walker Review of Systems Constitutional: no fever and no chills Eyes: + corrective lenses Ear, Nose, Mouth, Throat: no ear pain Respiratory: no cough and no dyspnea Cardiovascular: no chest pain Gastrointestinal: + nausea and + vomiting; no abdominal pain Genitourinary: + as per Subjective / HPI and + flank pain (left flank pain, ); no dysuria Musculoskeletal: + back pain (left flank) Integumentary: no rash Neurologic: garbled speech, left facial droop Physical Exam Constitutional: WD/WN, vitals as above Eyes: wears glasses ENMT: Ears: no hearing impairment Neck: trachea midline Cardiovascular: Rate/Rhythm: regular rate and regular rhythm Vessels: dorsalis pedis pulses present Gastrointestinal (Abdomen): Soft, nontender, nonrigid. No pain with palpation Musculoskeletal: No calf tenderness. Patient has a fistula in his left upper extremity for dialysis to has a palpable thrill Neurologic: Patient is able to move all 4 extremities. He does have garbled speech. Genitourinary: + CVA tenderness (Left-sided) Results & Data ([facility]) Vital Signs (Past 12 Hours) Vital Signs Temp Pulse Pulse Resp BP BP Pulse Ox 11/01/21 02:42 37.6 C H 88 15 115/45 L 97 11/01/21 02:20 37.6 C H 88 24 115/45 L 97 11/01/21 02:17 11/01/21 02:17 37.6 C H 75 24 115/45 L 96 11/01/21 01:30 97 H 28 H 124/67 98 11/01/21 01:00 100 H 32 H 132/71 99 11/01/21 00:32 132 H 31 H 128/63 97 11/01/21 00:07 112 H 21 125/94 97 10/31/21 23:00 89 26 H 131/89 100 11/01/21 00:05 88 L 10/31/21 22:41 37.1 C 10/31/21 22:07 98 H 145/72 H 92 10/31/21 20:33 99 H 27 H 93 10/31/21 20:31 101 H 26 H 119/66 93 10/31/21 20:18 114 H 21 119/66 96 Pulse Ox O2 Del Method O2 Del Method O2 Flow Rate 11/01/21 02:42 Room Air 11/01/21 02:20 Room Air 11/01/21 02:17 96 Room Air 11/01/21 02:17 Room Air 11/01/21 01:30 Nasal Cannula 2 11/01/21 01:00 Nasal Cannula 2 11/01/21 00:32 Nasal Cannula 2 11/01/21 00:07 Nasal Cannula 2 10/31/21 23:00 11/01/21 00:05 Room Air 0 10/31/21 22:41 10/31/21 22:07 Room Air 10/31/21 20:33 Room Air 10/31/21 20:31 Room Air 10/31/21 20:18 Room Air PG Care Time/CCT Total # of Minutes Spent Total Time Spent with Patient: Total time spent is greater than 50% in coordination of care (as documented) at patient's floor/unit and/or counseling patient: Coding Level of Care Code 01952 Inpt Consult Level 5 Diagnoses Emphysematous pyelonephritis N12
--- NOTE | 2021-11-01 07:47 | Magnetic Resonance Report ---
MR brain wo con HISTORY: 71 years-old Male stroke workup acute strokelike symptoms COMPARISON: Head CT, CTA head and neck 10/31/2021, brain MRI 09/18/2017 TECHNIQUE: Multiplanar multisequence MRI of the brain was obtained without the use of IV contrast. FINDINGS: There are 2 areas of cortically based restricted diffusion within the left frontal lobe near the vert ex on image 20 of series 4, largest of which measures 1.2 cm with decreased signal on ADC map. No acu te or subacute territorial infarct. Partially empty sella. The midline structures are otherwise unrem arkable. The study is motion degraded. Degenerative changes of the imaged cervical spine. There is no acute intracranial hemorrhage, midline shift, abnormal extra-axial collection, hydrocepha nahomy or intracranial mass. Senescent calcifications of the basal ganglia. Age-related involutional regina nges. Moderate T2/FLAIR hyperintense foci noted throughout the white matter. Cerebral venous sinuses and major arterial flow voids are patent. The mastoid air cells and paranasal sinuses are generally clear. The skull, orbits and soft tissues are unremarkable. IMPRESSION: 1. There are two small acute infarcts within the superior left frontal lobe measuring up to 1.2 cm. T his finding was called/faxed to the emergency department at time of dictation. 2. Age-related involutional changes with moderate chronic microvascular ischemic disease. ACT 112: Negative or not required by law. The above report was generated using voice recognition software. It may contain grammatical, syntax o r spelling errors. Electronically signed by: Joel Mon M.D. 11/01/2021 7:44 AM
--- NOTE | 2021-11-01 08:33 | Neurology Consultation ---
Date of Consultation November 01, 2021 Assessment & Plan (1) Acute ischemic stroke: (2) Carotid arterial disease: (3) Vertebral artery disease: (4) Chronic cerebral ischemia: (5) Diabetic nephropathy associated with type 2 diabetes mellitus: (6) Atrial fibrillation, permanent: Plan Patient suffered 2 very small peripheral left frontal acute strokes in the evening of July 01. This resulted in some right facial droop and moderate dysarthria. The facial droop has improved and his dysarthria is about the same. He has no other focal neurologic deficits. On exam he does have signs of a peripheral neuropathy likely due to diabetes. CT angiography reveals extensive plaque and stenosis of the carotid and vertebral arteries bilaterally expected sleep approximately. CT scan of the abdomen revealed plaque in the abdominal aorta as well. Therefore he has diffuse arterial disease. This would not be treated by the anticoagulants given to him because of atrial fibrillation. MRI of the brain reveals [id number] old small-vessel ischemic disease. Although I cannot exclude emboli, these infarcts are likely thrombotic due to decreased perfusion pressure. He tends to have lightheadedness with orthostasis and syncope. Other stroke risk factors include a history of hypertension, dyslipidemia, atrial fibrillation, and diabetes which is not adequately controlled. He has end-stage renal disease on dialysis. Currently he has pyelonephritis on the left and possible sepsis. Recommendations: 1. Initiate clopidogrel 75 milligrams daily. This would be in addition to the Eliquis and would help prevent small vessel ischemic disease. 2. avoid over control of blood pressure. Aim for a mean arterial pressure of 95-100. 3. Treat pyelonephritis ( question sepsis) with antibiotics, as you are doing. 4. control glucose aiming for hemoglobin A1c of less than 6.5. 5. the patient's cholesterol is quite controlled and I do not believe he is a high dose statin candidate. I would continue the atorvastatin 40 milligrams daily. 6. Speech, Physical, and Occupational therapy consult. Increase activity as able. overall, I spent a total of 90 minutes with this case including review of records, review of MRI films, direct evaluation the patient bedside, and d iscussion of the case with the patient and RN at bedside, and Dr. Flores, including differential diagnosis and treatment options. History of Present Illness Reason for Consultation: Patient is a 71-year-old, who I was asked to see at the request of Dr. Pavon, for neurologic consultation regarding stroke. Requesting Physician: Dr. Pavon Attending Physician: El Flores DO History of Present Illness Patient has a history of end-stage renal disease on dialysis ( the last 2 years) hypertension, dyslipidemia (on atorvastatin 40 mg daily), diabetes, and permanent atrial fibrillation, on Eliquis. In addition, he has a history of orthostasis sometimes resulting in syncope and hypotension. A recent hemoglobin A1c was 6 Patient tells me that for the last several days he has had left flank/ low back pain. This will be worse with walking. on October 31 around 7-730 p.m. he was taking a shower. He had this sudden onset difficulty speaking. He knew what he wanted to say but he came slurred. His daughter, who lives with him, noted a right facial droop and he was brought immediately to the emergency room. At 2018, pulse was 114, blood pressure 119/66, respiratory rate 21, O2 saturation 96, and temperature 37.1. exam was noted for the right facial droop dysarthria White count was elevated 19.8 and hemoglobin was low at 11.2. Hematocrit was 345, glucose 212, BUN 52, creatinine 5.5, CRP 1.89 and procalcitonin 2.2. Urinalysis was turbid, had 4+ protein and elevated cells. Culture is positive for gram-negative bacilli. Blood cultures are pending. CT scan of the head was unremarkable. Chest x-ray was unremarkable. CT angiography of the head was largely unremarkable although distal carotids had some plaque bilaterally. CT angiography of the neck showed extensive plaque in the ICAs with severe stenosis at the origin of left ICA ( 80 percent). Proximal vertebral arteries were severely stenotic bilaterally. MRI of the brain showed 2 small peripheral left frontal acute strokes. In addition there was [id number] old small vessel ischemia and atrophy in general. Because of the Eliquis he was not a tPA candidate. He feels that his facial droop healed quickly within the next couple of hours but he still has dysarthria. This morning white count is 22, triglycerides 69, total cholesterol 104. she has some left flank pain and the dysarthria but no lightheadedness, headache, vision issues, weakness, or numbness in the limbs. CT scan of the chest showed cardiomegaly. CT scan of the abdomen and pelvis showed changes consistent with emphysematous pyelonephritis on the left. There was plaque in the abdominal aorta as well. This morning he is febrile at 37.6. Allergies Allergy/AdvReac Type Severity Reaction Status Date / Time amlodipine AdvReac Severe FLU Verified 10/31/21 21:24 [facility] Home Medications Medication Instructions Recorded Confirmed Type atorvastatin 40 mg tablet (Lipitor) 40 mg PO HS 08/17/20 10/31/21 History lidocaine-prilocaine 2.5 %-2.5 % 1 applic topical DIRECTED 08/17/20 10/31/21 History topical cream vit B complx, C-iron 8 mg-folic 1 tab PO DAILY 08/17/20 10/31/21 History acid 800 mcg-D3 1,000 unit-zinc tablet (ProRenal) apixaban 5 mg tablet (Eliquis) 5 mg PO BID #60 tabs 08/06/21 10/31/21 Rx calcium acetate(phosphat bind) 667 667 mg PO .QSUPPER 10/31/21 10/31/21 History mg capsule Patient History Medical History Atrial fibrillation, permanent Diabetes type 2, controlled ESRD (end stage renal disease) on dialysis Fistula left arm Hyperlipidemia Hypertension Surgical History History of surgery on arm History of tooth extraction Family History Mother , age 65 of cancer -uncertain type Cancer Father , in his 50s of cancer Stomach cancer Esophagus cancer Cancer Cancer of bowel Sister Kidney stone Social History Smoking Status: Never smoker Second Hand Exposure: No; Do You Dip or Chew Tobacco: No; Tobacco Cessation Education Requested by Patient: No Hx Alcohol Use: Yes Alcohol type: beer Alcohol Intake Frequency: Monthly or Less Alcohol Intake Frequency Comment: 1 drink rarely Hx Substance Use: No Preferred Language: Kittitian Communication Ability: Effective Traffic Operator Required: No Beliefs That Will Affect Care: None marital status: Current Living Situation: Family Current Living Situation Comment: daughter lives w/ patient current occupational status: retired current occupation: retired age 64 from [place] [employer] Other Information That Helps Us Care for You: No Feels Safe at Home: Yes Safety Concerns: Feels Safe At This Time Assistive Devices: Glasses and Walker Review of Systems Constitutional: no fever, no fatigue and no weakness Eyes: no diplopia, no eye pain and no worsening vision Ear, Nose, Mouth, Throat: no ear pain, no tinnitus, no hearing loss, no dizziness, no snoring, no hoarseness and no dysphagia Respiratory: no cough and no dyspnea Cardiovascular: no chest pain, no palpitations and no lightheadedness Gastrointestinal: + abdominal pain ( left flank pain); no nausea and no vomiting Musculoskeletal: + back pain; no neck pain, no radicular pain, no joint pain and no myalgia Integumentary: no rash and no lesions Neurologic: + abnormal speech; no gait abnormality, no localized weakness, no generalized weakness, no tingling, no numbness, no tremor(s), no abnormal movements, no headache(s), no confusion and no memory loss Psychiatric: no depression, no irritability, no anxiety, no difficulty concentrating, no confusion and no hallucinations Endocrine: no fatigue and no flushing Hematologic / Lymphatic: no easy bleeding and no easy bruising Allergy / Immunological: no urticaria and no problem reported Exam (Neuro) Physical Exam: The patient is right-handed. The patient is awake, alert, and attentive. Speech is with moderate dysarthria and no obvious aphasia. The patient can name objects, repeat phrases, and has normal spontaneous speech. Mentation and thought processes are intact, with orientation to person, place and time, and normal fund of knowledge. Attention and concentration are normal. Mood and affect are normal and appropriate. General appearance and grooming are normal. Short and long-term memory are intact. The discs are sharp with positive venous pulsations bilaterally. There are no exudates, hemorrhages, or blood vessel changes seen. Pupils are 4 mm bilaterally and reactive to light. Extraocular eye muscles are intact without nystagmus. Visual acuity and visual farfan seem normal grossly to confrontation. There are no deficits to sensation in the face in all 3 distributions of the fifth cranial nerve bilaterally. Corneal reflexes are positive bilaterally. although there is some asymmetry with a mild right facial droop of the corner of the mouth, this moves quite nicely voluntarily to an equal nature in comparison to the left. Hearing seems normal bilaterally. Palate moves well without asymmetry. There is normal sternocleidomastoid and trapezius (shoulder shrug) strength bilaterally. Tongue is midline with good strength bilaterally. Neck has a full range of motion without discomfort. There are no cervical bruits bilaterally. There are no cranial or ocular bruits. Heart is without murmur. There is a regular rhythm and rate. Cervical, thoracic, and lumbar spine are nontender to palpation. Gait was not tested stance sitting up in bed is reasonable. With outstretched arms there is no drift. There are no resting, postural, or action tremors. There is no ataxia with finger to nose testing. There is good facility in the hands. No other abnormal involuntary movements are noted. Motor strength is 5/5 diffusely in the arms bilaterally including deltoids, biceps, triceps, brachioradialis, wrist flexors and extensors, chain saw operator, and intrinsic hand muscles. Motor strength is 5/5 diffusely in the legs bilaterally including hip flexors, quadriceps, hamstrings, gastrocnemius, tibialis anterior, tibialis posterior, and Peroneii muscles. Toe extensors are normal and there is good bulk in the extensor digitorum brevis muscles bilaterally. The limbs have good tone without rigidity or spasticity. There is no atrophy noted in the muscles. Muscle bulk is normal, there is no tenderness to palpation, no myotonia to percussion, and no fasciculations seen. Sensory examination is intact to touch and pin throughout all 4 limbs diffusely. Reflexes are 1/4 in the biceps, triceps, brachioradialis, and quadriceps tendons bilaterally. Achilles tendon reflexes are absent bilaterally. There is no clonus bilaterally. Toes are downgoing with plantar stimulation bilaterally. Results & Data ([facility]) Vital Signs (Past 12 Hours) Vital Signs Temp Pulse Pulse Resp BP BP Pulse Ox 11/01/21 06:39 88 29 H 128/70 95 11/01/21 02:42 37.6 C H 88 15 115/45 L 97 11/01/21 02:20 37.6 C H 88 24 115/45 L 97 11/01/21 02:17 11/01/21 02:17 37.6 C H 75 24 115/45 L 96 11/01/21 01:30 97 H 28 H 124/67 98 11/01/21 01:00 100 H 32 H 132/71 99 11/01/21 00:32 132 H 31 H 128/63 97 11/01/21 00:07 112 H 21 125/94 97 10/31/21 23:00 89 26 H 131/89 100 11/01/21 00:05 88 L 10/31/21 22:41 37.1 C 10/31/21 22:07 98 H 145/72 H 92 10/31/21 20:33 99 H 27 H 93 Pulse Ox O2 Del Method O2 Del Method O2 Flow Rate 11/01/21 06:39 Room Air 11/01/21 02:42 Room Air 11/01/21 02:20 Room Air 11/01/21 02:17 96 Room Air 11/01/21 02:17 Room Air 11/01/21 01:30 Nasal Cannula 2 11/01/21 01:00 Nasal Cannula 2 11/01/21 00:32 Nasal Cannula 2 11/01/21 00:07 Nasal Cannula 2 10/31/21 23:00 11/01/21 00:05 Room Air 0 10/31/21 22:41 10/31/21 22:07 Room Air 10/31/21 20:33 Room Air PG Care Time/CCT Total # of Minutes Spent Total Time Spent with Patient: Total time spent is greater than 50% in coordination of care (as documented) at patient's floor/unit and/or counseling patient: Coding Level of Care Code 15695 Initial Inpt Care Lvl 3 Diagnoses Acute ischemic stroke I63.9 Carotid arterial disease I77.9 Carotid artery disease type: unspecified Laterality: bilateral Vertebral artery disease I77.9 Chronic cerebral ischemia I67.82 Diabetic nephropathy associated with type 2 diabetes mellitus E11.21 Atrial fibrillation, permanent I48.21 Time Spent (min) 90 (1) Carotid arterial disease Carotid artery disease type: unspecified Laterality: bilateral Qualified Code(s): I77.9 - Disorder of arteries and arterioles, unspecified
--- NOTE | 2021-11-01 08:41 | Nephrology Consultation ---
Date of Consultation November 01, 2021 Assessment & Plan (1) End stage renal disease: * Will provide heparin free HD today according to outpatient orders. Acute HD RN notified (2) Emphysematous pyelonephritis: * Urology evaluation reviewed - recommend transfer to tertiary care center for possible percutaneous nephrostomy (3) Acute ischemic stroke: * Neurology has added Plavix History of Present Illness Reason for Consultation: ESKD on IHD Attending Physician: El Flores, History of Present Illness Mr. Blue is a 71 year old white male who is seen at the request of the [facility] Hospitalist Service this morning to provide inpatient HD and assist w/ medical management. Medical records in the EMR were reviewed today and are summarized as follows: Mr. Blue has ESKD due to DKD. He is on IHD at [facility] (TTS, 4hr, 3K 2.5Ca 1.0Mg, 32HCO3, F-180NR, Qb400/Qd500, EDW 111 kg, LUE AVF). He has experienced orthostasis following his treatments but this has improved following an increase in his EDW to 111 kg. Mr. Blue's medical history is significant for AODM, HTN, LUE AVF created 05/[address] Edmonds, mechanicl fall resulting in fracture of L radius and ulna s/p surgical repair at [facility] 10/18, COVID + 02/18, atrial fibrillation (Apixaban), BPH (Tamsulosin stopped due to orthostasis). Mr. Blue was brought to [facility] EMD last evening for evaluation of presumed CVA. Brain MRI revealed two small acute infarcts within the superior L frontal lobe measutine up to 1.2 cm. Patient had a leukocytosis. CT of abdomen and pelvis revealed emphysematous pyelonephritis involving the L collecting system. Urology expressed concern for possible enterovesical fistula and has recommended evaluation at tertiary care center for possible percutaneous nephrostomy. Allergies Allergy/AdvReac Type Severity Reaction Status Date / Time amlodipine AdvReac Severe FLU Verified 10/31/21 21:24 [facility] Home Medications Medication Instructions Recorded Confirmed Type atorvastatin 40 mg tablet (Lipitor) 40 mg PO HS 08/17/20 10/31/21 History lidocaine-prilocaine 2.5 %-2.5 % 1 applic topical DIRECTED 08/17/20 10/31/21 History topical cream vit B complx, C-iron 8 mg-folic 1 tab PO DAILY 08/17/20 10/31/21 History acid 800 mcg-D3 1,000 unit-zinc tablet (ProRenal) apixaban 5 mg tablet (Eliquis) 5 mg PO BID #60 tabs 08/06/21 10/31/21 Rx calcium acetate(phosphat bind) 667 667 mg PO .QSUPPER 10/31/21 10/31/21 History mg capsule Patient History Medical History Atrial fibrillation, permanent Diabetes type 2, controlled ESRD (end stage renal disease) on dialysis Fistula left arm Hyperlipidemia Hypertension Surgical History History of surgery on arm History of tooth extraction Family History Mother , age 65 of cancer -uncertain type Cancer Father , in his 50s of cancer Stomach cancer Esophagus cancer Cancer Cancer of bowel Sister Kidney stone Social History Smoking Status: Never smoker Second Hand Exposure: No; Do You Dip or Chew Tobacco: No; Tobacco Cessation Education Requested by Patient: No Hx Alcohol Use: Yes Alcohol type: beer Alcohol Intake Frequency: Monthly or Less Alcohol Intake Frequency Comment: 1 drink rarely Hx Substance Use: No Preferred Language: Maori Communication Ability: Effective [employer] Required: No Beliefs That Will Affect Care: None marital status: Current Living Situation: Family Current Living Situation Comment: daughter lives w/ patient current occupational status: retired current occupation: retired age 64 from [employer] Other Information That Helps Us Care for You: No Feels Safe at Home: Yes Safety Concerns: Feels Safe At This Time Assistive Devices: Glasses and Walker Review of Systems Constitutional: no fever Eyes: no worsening vision and no problem reported Ear, Nose, Mouth, Throat: no problem reported Respiratory: no cough and no dyspnea Cardiovascular: no chest pain, no palpitations and no edema Gastrointestinal: no abdominal pain, no nausea, no vomiting and no diarrhea/loose stools Genitourinary: no dysuria, no urinary hesitancy or no hematuria Integumentary: no rash Neurologic: + abnormal speech (R facial droop) Physical Exam Constitutional: not in distress Eyes: PERRL, conjunctivae normal, anicteric sclerae ENMT: external ear and nose normal, oropharynx normal Neck: trachea midline, no thyromegaly Respiratory: normal respiratory effort, lungs clear to auscultation Cardiovascular: RRR, no murmur, no edema Extremities: + AV fistula (+ bruit) Gastrointestinal (Abdomen): normal bowel sounds, soft, nontender, no hepatosplenomegaly Neurologic: Speech / Cognition: + abnormal speech (slurred speech) R facial droop Results & Data ([facility]) Vital Signs (Past 12 Hours) Vital Signs Temp Pulse Pulse Resp BP BP Pulse Ox 11/01/21 06:39 88 29 H 128/70 95 11/01/21 02:42 37.6 C H 88 15 115/45 L 97 11/01/21 02:20 37.6 C H 88 24 115/45 L 97 11/01/21 02:17 11/01/21 02:17 37.6 C H 75 24 115/45 L 96 11/01/21 01:30 97 H 28 H 124/67 98 11/01/21 01:00 100 H 32 H 132/71 99 11/01/21 00:32 132 H 31 H 128/63 97 11/01/21 00:07 112 H 21 125/94 97 10/31/21 23:00 89 26 H 131/89 100 11/01/21 00:05 88 L 10/31/21 22:41 37.1 C 10/31/21 22:07 98 H 145/72 H 92 Pulse Ox O2 Del Method O2 Del Method O2 Flow Rate 11/01/21 06:39 Room Air 11/01/21 02:42 Room Air 11/01/21 02:20 Room Air 11/01/21 02:17 96 Room Air 11/01/21 02:17 Room Air 11/01/21 01:30 Nasal Cannula 2 11/01/21 01:00 Nasal Cannula 2 11/01/21 00:32 Nasal Cannula 2 11/01/21 00:07 Nasal Cannula 2 10/31/21 23:00 11/01/21 00:05 Room Air 0 10/31/21 22:41 10/31/21 22:07 Room Air Laboratory Results Laboratory Tests 11/01/21 11/01/21 04:26 04:26 WBC 22.25 H Hgb 11.0 L Hct 33.9 L Plt Count 178 Sodium 137 Potassium 5.3 H Chloride 99 Carbon Dioxide 28 BUN 58 H Creatinine 5.90 H* D Glucose 183 H Calcium 8.2 L Diagnostic Findings 10/31/[address]: 1. Gas within the bilateral collecting systems and proximal left ureter. In the absence of recent instrumentation, the findings are suggestive of emphysematous pyelitis. Correlation with urinalysis is recommended. Gas within the bladder lumen. 2. No bowel obstruction. No bowel wall thickening. Colonic diverticulosis without evidence for acute diverticulitis. 3. Extensive plaque of the abdominal aorta and branch vessels. 10/31/[address]: 1. No acute process within the chest. 2. Cardiomegaly. Extensive coronary artery calcification. 3. Ground glass opacities within the lungs which favor atelectasis. No consolidation to suggest pneumonia. 10/31/21 Brain MRI: 1. There are two small acute infarcts within the superior left frontal lobe measuring up to 1.2 cm. This finding was called/faxed to the emergency department at time of dictation. 2. Age-related involutional changes with moderate chronic microvascular ischemic disease. PG Care Time/CCT Total # of Minutes Spent Total Time Spent with Patient: Total time spent is greater than 50% in coordination of care (as documented) at patient's floor/unit and/or counseling patient: Coding Level of Care Code 16739 Inpt Consult Level 5 Diagnoses End stage renal disease N18.6 Emphysematous pyelonephritis N12 Acute ischemic stroke I63.9
[2021-11-01] MEDS ORDERED: SODIUM CHLORIDE 0.9% 1000ML 1,000 ML IV PRN (08:44)
[2021-11-01 09:45] LABS: Partial Thromboplastin Ratio 1.9
[2021-11-01 09:47] LABS: Partial Thromboplastin Time 52.9 Seconds (21.0-31.0)
[2021-11-01 10:41] LABS: A calco-baum cmplx NotReported Not Detected (NotDetected); Bact fragilis Not Reported Not Detected (NotDetected); C auris Not Reported Not Detected (NotDetected); CTX-M Resistant Gene Not Detected (NotDetected); Calbicans Not Reported Not Detected (NotDetected); Candida glabrata Not Reported Not Detected (NotDetected); Candida krusei Not Reported Not Detected (NotDetected); Cneoformans/gatti Not Reported Not Detected (NotDetected); Cparapsilosis Not Reported Not Detected (NotDetected); Ctropicalis Not Reported Not Detected (NotDetected); E cloacae compx Not Reported Not Detected (NotDetected); Efaecalis Not Reported Not Detected (NotDetected); Efaecium Not Reported Not Detected (NotDetected); Enterobacterales Not Reported DETECTED (NotDetected); Escherichia coli Not Reported DETECTED (NotDetected); H influenzae Not Reported Not Detected (NotDetected); IMP Resistant Gene Not Detected (NotDetected); K aerogenes Not Reported Not Detected (NotDetected); KPC Resistant Gene Not Detected (NotDetected); Koxytoca Not Reported Not Detected (NotDetected); Kpneumoniae grp Not Reported Not Detected (NotDetected); Lmonocyt Not Reported Not Detected (NotDetected); N meningitidis Not Reported Not Detected (NotDetected); NDM Resistant Gene Not Detected (NotDetected); OXA 48 Like Resistant Gene Not Detected (NotDetected); P aeruginosa Not Reported Not Detected (NotDetected); Proteus spp Not Reported Not Detected (NotDetected); Salmonella spp Not Reported Not Detected (NotDetected); Smarcescens Not Reported Not Detected (NotDetected); Staph lugdunensis Not Reported Not Detected (NotDetected); Staph spp. Not Reported Not Detected (NotDetected); Staphaureus Not Reported Not Detected (NotDetected); Staphepi Not Reported Not Detected (NotDetected); Stenmaltophilia Not Reported Not Detected (NotDetected); Strep agal(GrpB) Not Reported Not Detected (NotDetected); Strep pneum Not Reported Not Detected (NotDetected); Strep pyog (GrpA) Not Reported Not Detected (NotDetected); Strep spp Not Reported Not Detected (NotDetected); VIM Resistant Gene Not Detected (NotDetected); mcr-1 Colistin Resistant Gene Not Detected (NotDetected)
[2021-11-01 10:43] LABS: Enterobacterales DETECTED (NotDetected)
--- NOTE | 2021-11-01 12:21 | Dialysis Progress Note ---
Date of Service November 01, 2021 Assessment & Plan (1) End stage renal disease: Plan: * Clinically stable on HD at this time. Heparin is being held. No change to current dialysis prescription (2) Emphysematous pyelonephritis: Plan: * Urology evaluation reviewed - recommend transfer to tertiary care center for possible percutaneous nephrostomy (3) Acute ischemic stroke: Plan: * Neurology has added Plavix Admission and Anticipated Discharge Date Admission Date: October 31, 2021 Subjective Mr. Blue was evaluated during HD this afternoon. His access is functioning well. He voiced no medical concerns Review of Systems Constitutional: no fever Eyes: no worsening vision and no problem reported Ear, Nose, Mouth, Throat: no problem reported Respiratory: no cough and no dyspnea Cardiovascular: no chest pain, no palpitations and no edema Gastrointestinal: no abdominal pain, no nausea, no vomiting and no diarrhea/loose stools Genitourinary: no dysuria, no urinary hesitancy or no hematuria Integumentary: no rash Neurologic: + abnormal speech (R facial droop) Physical Exam Constitutional: not in distress Eyes: PERRL, conjunctivae normal, anicteric sclerae ENMT: external ear and nose normal, oropharynx normal Neck: trachea midline, no thyromegaly Respiratory: normal respiratory effort, lungs clear to auscultation Cardiovascular: RRR, no murmur, no edema Extremities: + AV fistula (+ bruit) Gastrointestinal (Abdomen): normal bowel sounds, soft, nontender, no hepatosplenomegaly Neurologic: Speech / Cognition: + abnormal speech (slurred speech) Results & Data ([facility]) Vital Signs (Past 12 Hours) Vital Signs Temp Pulse Pulse Resp BP BP Pulse Ox 11/01/21 10:25 79 22 119/61 95 11/01/21 06:39 88 29 H 128/70 95 11/01/21 02:42 37.6 C H 88 15 115/45 L 97 11/01/21 02:20 37.6 C H 88 24 115/45 L 97 11/01/21 02:17 11/01/21 02:17 37.6 C H 75 24 115/45 L 96 11/01/21 01:30 97 H 28 H 124/67 98 11/01/21 01:00 100 H 32 H 132/71 99 11/01/21 00:32 132 H 31 H 128/63 97 Pulse Ox O2 Del Method O2 Del Method O2 Flow Rate 11/01/21 10:25 11/01/21 06:39 Room Air 11/01/21 02:42 Room Air 11/01/21 02:20 Room Air 11/01/21 02:17 96 Room Air 11/01/21 02:17 Room Air 11/01/21 01:30 Nasal Cannula 2 11/01/21 01:00 Nasal Cannula 2 11/01/21 00:32 Nasal Cannula 2 [facility] Procedure Codes (Charges) Renal/Urologic Renal/Urologic: 88760 Hemodialysis, One Evaluation Coding Level of Care Code None Diagnoses End stage renal disease N18.6 Emphysematous pyelonephritis N12 Acute ischemic stroke I63.9 CPT Codes Renal/Urologic - Renal/Urologic: 26433 Hemodialysis, One Evaluation ([id number])
[2021-11-01] MEDS: ATORVASTATIN 40 MG TAB PO SCH (13:11)
--- NOTE | 2021-11-01 14:40 | Hospitalist Progress Note ---
Date of Service November 01, 2021 Assessment & Plan (1) Acute ischemic stroke: Plan: Patient is a 71-year-old male with multiple comorbidities who presented to the emergency room for concern of stroke. A stroke alert was called and as of yet a CT and CTA have not shown evidence of hemorrhagic or ischemic stroke. MRI is pending at the time of writing this note. Patient has focal neurologic deficit including facial droop on the right side and slurred speech. Patient did not qualify for clot busters due to being on Eliquis for blood thinner. Over the course of his current hospitalization it does seem that his neurological deficits are improving and patient is hemodynamically stable. Additionally he has been found that he has sepsis secondary to likely emphysematous pyelitis and has been started on broad-spectrum antibiotics. Sepsis secondary to L emphysematous pyelitis -WBC 22.25, CRP 1.9, procalcitonin 2.3, lactate wnl -Urinalysis grossly infected, UCx growing gram negative bacilli- awaiting sensitivities -CTAP- gas noted within b/l collecting systems and proximal L ureter concerning for emphysematous pyelitis -Urology consulted -Do not suspect colovesical fistula -Pt will need definitive management with percutaneous nephrostomy- advised transfer to tertiary care facility -Vancomycin and Zosyn given in ER, switched to cefepime/daptomycin and continue -Trend CBC -Pt accepted for transfer to [facility] under accepting stroke physician Dr. Zhang, awaiting bed availability Acute L frontal lobe ischemic stroke -Last known well of 7 PM on 10/31, no thrombolytics given since coming to ER -CT head/CTA head unremarkable -Neck CTA- severe stenoses of L ICA, L ECA, R vertebral artery -MRI demonstrating 2 small infarcts in superior L frontal lobe- 1.2 cm in size -Stroke likely due to atherosclerotic large-vessel disease given CTA neck findings -NPO, aspiration precautions -Speech/swallow evaluation pending -Neuro checks q4h -Neurology consult -Continue risk reduction with high intensity statin, added Plavix 75 mg daily ESRD on dialysis -Patient typically gets dialysis on Friday, , Friday -Nephrology consulted and managing dialysis -HD completed today -Cr 5.9 today -Trend BMP Atrial fibrillation -Not on any rate or rhythm control medications -Holding home Eliquis due to active stroke, continue anticoagulation with heparin infusion -Currently in atrial fibrillation, rate controlled Type 2 diabetes -Diet controlled, no insulin required at this time -BSGs wnl -Last A1c was 6.9 on 10/18/2021 Hyperlipidemia -Continue atorvastatin 40 mg due to active stroke Disposition: Medical with telemetry Diet: NPO due to stroke DVT prophylaxis: Heparin infusion CODE STATUS: Full code (2) Emphysematous pyelonephritis: (3) Carotid arterial disease: (4) Atrial fibrillation, permanent: (5) Syncope: (6) Type 2 diabetes mellitus with complications: (7) End stage renal disease: (8) Vitamin D deficiency: (9) Hyperlipidemia: Admission and Anticipated Discharge Date Admission Date: October 31, 2021 Subjective Pt stable overnight. On evaluation, he denies any change in his facial droop or slurred speech. Does feel somewhat tired but denies any overt weakness or numbness, headache, vision change. Does endorse some L flank pain but no fever, chills, nausea, vomiting. Review of Systems Review of Systems: Per subjective Physical Exam Constitutional: well developed and + obese; no acute distress Eyes: PERRL, conjunctivae normal, anicteric sclerae Neck: trachea midline, no thyromegaly Respiratory: normal respiratory effort, lungs clear to auscultation Cardiovascular: RRR, no murmur, no edema Vessels: no JVD and no carotid bruit Gastrointestinal (Abdomen): normal bowel sounds, soft, nontender, no hepatosplenomegaly L flank tenderness Musculoskeletal: no cyanosis or clubbing, extremities motor strength 5/5 Head/Neck/Chest: normocephalic and head atraumatic Skin: no rashes, warm and dry Neurologic: CN's II-XI intact bilaterally, moves all extremities, + focal motor deficit and awake Speech / Cognition: + abnormal speech Motor/Sensory: no sensory deficit Facial drooping on the right, slurred speech Psychiatric: Orientation: alert, oriented x 3 and cooperative Lymphatic: no cervical or axillary lymphadenopathy Results & Data Results & Data ([facility]) Vital Signs (Past 12 Hours) Vital Signs Temp Pulse Pulse Pulse Resp BP BP 11/01/21 14:00 86 122/61 11/01/21 13:30 79 138/82 11/01/21 13:00 76 134/70 11/01/21 12:30 76 128/54 L 11/01/21 12:00 79 119/80 11/01/21 11:36 36.5 C 89 11/01/21 10:25 79 22 119/61 11/01/21 06:39 88 29 H 128/70 11/01/21 02:42 37.6 C H 88 15 115/45 L Pulse Ox O2 Del Method 11/01/21 14:00 11/01/21 13:30 11/01/21 13:00 11/01/21 12:30 11/01/21 12:00 11/01/21 11:36 11/01/21 10:25 95 11/01/21 06:39 95 Room Air 11/01/21 02:42 97 Room Air Resident Activity Tracking Resident Involvement: Resident Care Provided Care Provided: Adult Hospital Medicine (1) Carotid arterial disease Carotid artery disease type: unspecified Laterality: bilateral Qualified Code(s): I77.9 - Disorder of arteries and arterioles, unspecified
[2021-11-01] MEDS ORDERED: DAPTOmycin 550 MG in SYRINGE 0 ML IV SCH (16:00)
[2021-11-01] MEDS ORDERED: CEFEPIME 1,000 MG in SYRINGE 0 ML IV SCH (16:00)
[2021-11-01 17:20] LABS: Partial Thromboplastin Time 55.2 Seconds (21.0-31.0)
[2021-11-01] MEDS ORDERED: STROKE PATIENT DISCHARGE STA (18:17)
--- NOTE | 2021-11-01 18:24 | Discharge Summary ---
Date of Service November 01, 2021 Admission HPI Per Admitting Provider Patient is a 71-year-old male with past medical history of ESRD receiving hemodialysis Friday, , Friday, type 2 diabetes mellitus with nephropathy, essential hypertension, hyperlipidemia, atrial fibrillation, and chronic anticoagulation on Eliquis who presented to the emergency room due to chief complaint of strokelike symptoms. Patient reports to me that this morning around 1:30 patient began having flank pain on the left side. Later in the morning he began having episodes of nausea and vomiting that seem to improve around 10 AM and patient felt overall fine for the remainder of the morning. Patient reports that his vomit consisted of only stomach acid/bile without any actual substance. Daughter then states that around 7 PM patient wanted to take a shower and the daughter had noted that it was taking a long time and she went to check on him. When she called to ask if he was all right, he only responded in mumbled words. Daughter went into the bathroom and found him hunched over in the shower supporting himself with the shower bar in the wall. Daughter guided the patient out of the shower and noticed when she was talking to him that he had slurred speech and facial droop. Daughter was concerned that the patient was having a stroke at that time called EMS. Prior to today starting at 1:30 AM, patient had no identifiable symptoms concerning for infection or kidney problems. Additionally reports dyspnea, however, this is a chronic issue for him and does not seem to be worse today compared to any other day. Denies any fevers, chills, chest pain, headache, or fatigue. Of note patient reports to me that for the past few years he has multiple episodes of difficulty with lightheadedness and presyncope with showering and standing from the seated position. Patient does not have a primary care provider and has not had this worked up. Denies having any previous episodes of strokelike symptoms in the past. ED course: Patient arrived via EMS and a stroke alert was called. Patient had head CT, head and neck CTA which had revealed severe stenosis of the left internal carotid artery, occlusion versus severe stenosis of the proximal right vertebral artery, occlusion versus severe stenosis of the proximal left external carotid artery. There is no hemorrhagic stroke identified and no criteria for ischemic stroke. MRI was ordered and pending at the time of writing this note. Blood work and revealed an elevated white count at 19.9 with a left shift, creatinine of 5.51, procalcitonin of 2.29, and a urinalysis suggestive of urinary tract infection. Troponin was mildly elevated at 20.6. Patient had noted the flank pain to the ED provider and at that point a CT of the abdomen and pelvis was done and it was found that there was gas within the bilateral collecting systems and left proximal ureter suggestive of emphysematous pyelitis. Lactate and ammonia level were also ordered after hospitalist was consulted Admission Exam Per Admitting Provider Constitutional: well developed and + obese; no acute distress Eyes: PERRL, conjunctivae normal, anicteric sclerae Neck: trachea midline, no thyromegaly Respiratory: normal respiratory effort, lungs clear to auscultation Cardiovascular: RRR, no murmur, no edema Vessels: no JVD and no carotid bruit Gastrointestinal (Abdomen): normal bowel sounds, soft, nontender, no hepatosplenomegaly Musculoskeletal: no cyanosis or clubbing, extremities motor strength 5/5 Head/Neck/Chest: normocephalic and head atraumatic Skin: no rashes, warm and dry Neurologic: CN's II-XI intact bilaterally, moves all extremities, + focal motor deficit and awake Speech / Cognition: + abnormal speech Motor/Sensory: no sensory deficit Facial drooping on the right, palate sag on the right, slurred speech Psychiatric: Orientation: alert, oriented x 3 and cooperative Lymphatic: no cervical or axillary lymphadenopathy Principal Diagnosis 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 Discharge Exam Constitutional: well developed and + obese; no acute distress Eyes: PERRL, conjunctivae normal, anicteric sclerae Neck: trachea midline, no thyromegaly Respiratory: normal respiratory effort, lungs clear to auscultation Cardiovascular: RRR, no murmur, no edema Vessels: no JVD and no carotid bruit Gastrointestinal (Abdomen): normal bowel sounds, soft, nontender, no hepatosplenomegaly L flank tenderness Musculoskeletal: no cyanosis or clubbing, extremities motor strength 5/5 Head/Neck/Chest: normocephalic and head atraumatic Skin: no rashes, warm and dry Neurologic: CN's II-XI intact bilaterally, moves all extremities, + focal motor deficit and awake Speech / Cognition: + abnormal speech Motor/Sensory: no sensory deficit Facial drooping on the right, slurred speech Psychiatric: Orientation: alert, oriented x 3 and cooperative Lymphatic: no cervical or axillary lymphadenopathy Discharge Data Allergies Allergy/AdvReac Type Severity Reaction Status Date / Time amlodipine AdvReac Severe FLU Verified 10/31/21 21:24 SYMPTONS Consultations 10/31/21 21:33 ED Decision to Admit Stat 11/01/21 01:25 Consult Nephrology Routine Consult Neurology Routine Consult Urology Routine 11/01/21 13:45 Burn CD for patient Routine Ordered Studies 10/31/21 20:07 CT angio head w con Stat CT angio neck with con Stat CT head/brain wo con Stat 10/31/21 20:16 CT abd pelvis IV con only Stat CT chest diagnostic w con Stat 10/31/21 22:38 MRI Brain [MR brain wo con] Stat Hospital Course (1) Acute ischemic stroke: Patient is a 71-year-old male with multiple comorbidities who presented to the emergency room for concern of stroke. A stroke alert was called and as of yet a CT and CTA have not shown evidence of hemorrhagic or ischemic stroke. MRI is pending at the time of writing this note. Patient has focal neurologic deficit including facial droop on the right side and slurred speech. Patient did not qualify for clot busters due to being on Eliquis for blood thinner. Over the course of his current hospitalization it does seem that his neurological deficits are improving and patient is hemodynamically stable. Additionally he has been found that he has sepsis secondary to likely emphysematous pyelitis and has been started on broad-spectrum antibiotics. Sepsis secondary to L emphysematous pyelitis -WBC 22.25, CRP 1.9, procalcitonin 2.3, lactate wnl -Urinalysis grossly infected, UCx growing gram negative bacilli- awaiting sensitivities -CTAP- gas noted within b/l collecting systems and proximal L ureter concerning for emphysematous pyelitis -Urology consulted -Do not suspect colovesical fistula -Pt will need definitive management with percutaneous nephrostomy- advised transfer to tertiary care facility -Vancomycin and Zosyn given in ER, switched to cefepime/daptomycin and continue -Trend CBC -Pt accepted for transfer to [facility] under accepting stroke physician Dr. Zhang, transfer on 11/01 Acute L frontal lobe ischemic stroke -Last known well of 7 PM on 10/31, no thrombolytics given since coming to ER -CT head/CTA head unremarkable -Neck CTA- severe stenoses of L ICA, L ECA, R vertebral artery -MRI demonstrating 2 small infarcts in superior L frontal lobe- 1.2 cm in size -Stroke likely due to atherosclerotic large-vessel disease given CTA neck findings -NPO, aspiration precautions -Speech/swallow evaluation pending -Neuro checks q4h -Neurology consult -Continue risk reduction with high intensity statin, added Plavix 75 mg daily ESRD on dialysis -Patient typically gets dialysis on Friday, , Friday -Nephrology consulted and managing dialysis -HD completed today -Cr 5.9 today -Trend BMP Atrial fibrillation -Not on any rate or rhythm control medications -Holding home Eliquis due to active stroke, continue anticoagulation with heparin infusion -Currently in atrial fibrillation, rate controlled Type 2 diabetes -Diet controlled, no insulin required at this time -BSGs wnl -Last A1c was 6.9 on 10/18/2021 Hyperlipidemia -Continue atorvastatin 40 mg due to active stroke Disposition: Medical with telemetry Diet: NPO due to stroke DVT prophylaxis: Heparin infusion CODE STATUS: Full code (2) Emphysematous pyelonephritis: (3) Carotid arterial disease: (4) Atrial fibrillation, permanent: (5) Syncope: (6) Type 2 diabetes mellitus with complications: (7) End stage renal disease: (8) Vitamin D deficiency: (9) Hyperlipidemia: Total Time Total Time Spent Total Time Spent (In Minutes): <30 Discharge Plan Discharge Items Patient Disposition: Transfer Acute Care Hospital Reason For Visit: STROKE LIKE SYMPTOMS Discharge Diagnosis: Acute ischemic stroke, emphysematous pyelitis Activity: Resume your previous activity Non-emergency contact: Primary Care Provider Call non-emergency contact if: you have any medication questions, your symptoms worsen, your pain is worsening, your pain is unusual for you and you have a fever Follow-up/Referrals: PCP,NO [Primary Care Provider] - Diet: Carb Consistent or DM2 and Dialysis Renal Addtl Attending Provider Instructions: Patient is a 71-year-old male with multiple comorbidities who presented to the emergency room for concern of stroke. A stroke alert was called and as of yet a CT and CTA have not shown evidence of hemorrhagic or ischemic stroke. MRI is pending at the time of writing this note. Patient has focal neurologic deficit including facial droop on the right side and slurred speech. Patient did not qualify for clot busters due to being on Eliquis for blood thinner. Over the course of his current hospitalization it does seem that his neurological deficits are improving and patient is hemodynamically stable. Additionally he has been found that he has sepsis secondary to likely emphysematous pyelitis and has been started on broad-spectrum antibiotics. Sepsis secondary to L emphysematous pyelitis -WBC 22.25, CRP 1.9, procalcitonin 2.3, lactate wnl -Urinalysis grossly infected, UCx growing gram negative bacilli- awaiting sensitivities -CTAP- gas noted within b/l collecting systems and proximal L ureter concerning for emphysematous pyelitis -Urology consulted -Do not suspect colovesical fistula -Pt will need definitive management with percutaneous nephrostomy- advised transfer to tertiary care facility -Vancomycin and Zosyn given in ER, switched to cefepime/daptomycin and continue -Trend CBC -Pt accepted for transfer to [facility] under accepting stroke physician Dr. Zhang, awaiting bed availability Acute L frontal lobe ischemic stroke -Last known well of 7 PM on 10/31, no thrombolytics given since coming to ER -CT head/CTA head unremarkable -Neck CTA- severe stenoses of L ICA, L ECA, R vertebral artery -MRI demonstrating 2 small infarcts in superior L frontal lobe- 1.2 cm in size -Stroke likely due to atherosclerotic large-vessel disease given CTA neck findings -NPO, aspiration precautions -Speech/swallow evaluation pending -Neuro checks q4h -Neurology consult -Continue risk reduction with high intensity statin, added Plavix 75 mg daily ESRD on dialysis -Patient typically gets dialysis on Friday, , Friday -Nephrology consulted and managing dialysis -HD completed today -Cr 5.9 today -Trend BMP Atrial fibrillation -Not on any rate or rhythm control medications -Holding home Eliquis due to active stroke, continue anticoagulation with heparin infusion -Currently in atrial fibrillation, rate controlled Type 2 diabetes -Diet controlled, no insulin required at this time -BSGs wnl -Last A1c was 6.9 on 10/18/2021 Hyperlipidemia -Continue atorvastatin 40 mg due to active stroke Disposition: Medical with telemetry Diet: NPO due to stroke DVT prophylaxis: Heparin infusion CODE STATUS: Full code Pending Studies at Discharge: No Stand-Alone Forms: My [facility] Skilled Items Patient informed of condition?: Yes DNR: No Discharge Level of Care: Other Communicable Disease: No Discharge Prognosis: Improving Lines: Peripheral IV Urinary Catheter: No Medications and DC Order Prescriptions: Continued Eliquis 5 mg tablet 5 mg PO BID Qty: 60 11RF calcium acetate(phosphat bind) 667 mg capsule 667 mg PO .QSUPPER ProRenal 8 mg iron-800 mcg-1,000 unit tablet 1 tab PO DAILY atorvastatin [Lipitor] 40 mg tablet 40 mg PO HS lidocaine-prilocaine 2.5-2.5 % cream 1 applic topical DIRECTED Rx Instructions: APPLY SMALL AMT TO ACCESS SITE BEFORE DIALYSIS Discharge Orders: Discharge Order (Routine); Ordered 11/01/21 Ordered By: Alex Moore Admission Data Admit Date/Time: 10/31/21 23:13 Attending Provider: El Flores Admit Provider: Trent Pavon Primary Care Provider: PCP,NO Other Providers: Davon Chavira ; Darren Mcdowell ; Renny Stinson ; Jamie Aguirre Supervising Physician Co-Signing Physician Notes I personally examined the patient and verified all landin points of history and exam, discussed case, and agree with decision making with Dr Moore Feeling surprisingly well. Awaiting dialysis whenever I see him. Awaiting transferalready accepted just waiting on a bed. Vitals noted, in general he is awake and alert pleasant no distress. HEENT normocephalic atraumatic mucous membranes moist. Breathing unlabored no accessory muscle use good effort. Skin shows no rashes no pallor or icterus. Neuro without focal deficits. Emphysematous pyelitis with sepsiscontinue broad antibiotic coveragefortunately appears to be overall stable in his current ill situationurology recommends transfer for nephrostomy tubeswhich has been set up for [place]. Continue current care pending transfer. Strokelikely intracranial atherosclerosis and hypoperfusion in his septic status given the stroke appearance on MRIbut difficult to rule out large vessel atheroembolic given his ipsilateral carotid stenosis. Treating the sepsis to improve perfusion. Secondary risk reduction/med managementagree with antiplatelet, but given his sepsis and possible need for urgent intervention for source controlholding off on initiating Plavix until nephrostomy tubes have been placed. for transfer, otherwise as above Resident Activity Tracking Resident Involvement: Resident Care Provided Care Provided: Adult Hospital Medicine
--- NOTE | 2021-11-01 18:42 | Electrocardiogram Report ---
Test Reason : Blood Pressure : / mmHG Vent. Rate : 108 BPM Atrial Rate : 131 BPM P-R Int : 000 ms QRS Dur : 088 ms QT Int : 386 ms P-R-T Axes : 000 035 -28 degrees QTc Int : 517 ms Atrial fibrillation with rapid ventricular response Nonspecific ST abnormality Abnormal ECG When compared with ECG of 04-MAR-2021 15:35, No significant change was found Confirmed by Karthik Thomas ([id number]) on 11/01/2021 6:42:07 PM Referred By: REFERRED SELF Confirmed By:Judson Thomas
--- NOTE | 2021-11-01 18:58 | Billing Data ---
Date of Service November 01, 2021 Coding Level of Care Code D/C DAY MANAGEMENT <30 MINS
--- NOTE | 2021-11-02 03:13 | Billing Data ---
Date of Service November 02, 2021 Coding Level of Care Code 34659 Initial Inpt Care Lvl 3
[2021-11-02] MEDS: HEPARIN SODIUM/DEXTROSE 25,000 UNITS/500 ML BAG IV SCH (04:31)
[2021-11-02 06:04] LABS: Basophils # (auto) 0.04 K/uL (0-0.2); Basophils % (auto) 0.3 %; Eosinophils # (auto) 0.05 K/uL (0-0.50); Eosinophils % (auto) 0.4 %; Hematocrit (blood only) 33.2 % (40.1-51.0); Hemoglobin 10.8 g/dl (14.0-18.0); Immature Granulocytes # (auto) 0.08 K/uL (0.00-0.02); Immature Granulocytes % (auto) 0.6 %; Lymphocytes # (auto) 1.01 K/uL (1.2-3.4); Lymphocytes % (auto) 7.3 %; Mean Corpuscular Hemoglobin 30.7 pg (25.0-34.0); Mean Corpuscular Hgb Conc 32.5 g/dL (32.0-36.0); Mean Corpuscular Volume 94.3 fL (80.0-100.0); Mean Platelet Volume 9.8 fL (9.4-12.4); Monocytes # (auto) 1.25 K/uL (0.24-0.82); Neutrophils # (auto) 11.42 K/uL (1.4-6.5); Neutrophils % (auto) 82.4 %; Platelet Count 158 K/uL (130-400); RDW Coefficient of Variation 13.8 % (11.5-14.5); RDW Standard Deviation 47.7 fL (36.4-46.3); Red Blood Count 3.52 M/uL (4.63-6.08); White Blood Count 13.85 K/ul (4.8-10.8)
[2021-11-02 06:34] LABS: Partial Thromboplastin Ratio 1.9
[2021-11-02 06:36] LABS: BUN Creatinine Ratio 7.8 (10-20); C Reactive Protein 15.37 mg/dl (0-0.5); Calcium 8.3 mg/dl (8.5-10.1); Creatinine Clr Calc Pharmacy 19.4 ml/min; Est GFR (African American) 14.7 ml/min; Est GFR (Non-African American) 12.7 ml/min; Potassium 4.8 mmol/L (3.5-5.1)
[2021-11-02 06:49] LABS: Partial Thromboplastin Time 51.3 Seconds (21.0-31.0)
[2021-11-02] MEDS: ATORVASTATIN 40 MG TAB PO SCH (08:17)
--- NOTE | 2021-11-02 08:47 | Nephrology Progress Note ---
Date of Service November 02, 2021 Assessment & Plan (1) End stage renal disease: Plan: * Patient was dialyzed yesterday heparin free without complication. 1 L UF obtained. Volume status and electrolyte balance are acceptable this morning. AVF has + bruit. No acute indication for HD today * Mr. Blue is awaiting transfer to [facility]. Will place orders for HD tomorrow if he remains hospitalized at our facility (2) Emphysematous pyelonephritis: Plan: * Urology evaluation reviewed - recommend transfer to tertiary care center for possible percutaneous nephrostomy * Blood and urine cultures are + for E. Coli * Patient is on IV Rocephin (3) Acute ischemic stroke: Plan: * Neurology has added Plavix Admission and Anticipated Discharge Date Admission Date: October 31, 2021 Subjective Mr. Blue was evaluated in his hospital room this morning. His slurred speech and R facial droop persist. He denies CERON, fever, flank pain or abdominal discomfort Review of Systems Constitutional: no fever Eyes: no worsening vision and no problem reported Ear, Nose, Mouth, Throat: no problem reported Respiratory: no cough and no dyspnea Cardiovascular: no chest pain, no palpitations and no edema Gastrointestinal: no abdominal pain, no nausea, no vomiting and no diarrhea/loose stools Genitourinary: no dysuria, no urinary hesitancy or no hematuria Integumentary: no rash Neurologic: + abnormal speech (R facial droop) Physical Exam Constitutional: not in distress Eyes: PERRL, conjunctivae normal, anicteric sclerae ENMT: external ear and nose normal, oropharynx normal Neck: trachea midline, no thyromegaly Respiratory: normal respiratory effort, lungs clear to auscultation Cardiovascular: RRR, no murmur, no edema Extremities: + AV fistula (+ bruit) Gastrointestinal (Abdomen): normal bowel sounds, soft, nontender, no hepatosplenomegaly Neurologic: Speech / Cognition: + abnormal speech (slurred speech) Results & Data ([facility]) Vital Signs (Past 12 Hours) Vital Signs Temp Pulse Pulse Pulse Resp BP Pulse Ox 11/02/21 07:37 36.8 C 88 20 141/52 H 90 11/02/21 03:50 36.8 C 76 22 109/70 94 11/02/21 02:08 76 11/01/21 23:56 37.1 C 81 20 120/75 95 O2 Del Method 11/02/21 07:37 Room Air 11/02/21 03:50 Room Air 11/02/21 02:08 11/01/21 23:56 Room Air Laboratory Results Laboratory Tests 11/02/21 11/02/21 05:53 05:53 WBC 13.85 H Hgb 10.8 L Hct 33.2 L Plt Count 158 Sodium 137 Potassium 4.8 Chloride 100 Carbon Dioxide 29 BUN 34 H D Creatinine 4.36 H D Glucose 128 H Calcium 8.3 L Microbiology 10/31/21 20:47 Blood Anaerobic Blood Culture - Final 10/31/21 21:03 Urine,Clean Catch Urine Culture - Preliminary Escherichia coli 10/31/21 20:49 Blood Aerobic Blood Culture - Preliminary 10/31/21 20:49 Blood Anaerobic Blood Culture - Preliminary Gram negative bacilli Gram negative bacilli 10/31/21 20:47 Blood Aerobic Blood Culture - Preliminary 10/31/21 20:47 Blood Gram negative bacilli PG Care Time/CCT Total # of Minutes Spent Total Time Spent with Patient: Total time spent is greater than 50% in coordination of care (as documented) at patient's floor/unit and/or counseling patient: Coding Level of Care Code 31227 Subseq Hosp Care Lvl 3 Diagnoses End stage renal disease N18.6 Emphysematous pyelonephritis N12 Acute ischemic stroke I63.9
--- NOTE | 2021-11-02 10:42 | Discharge Summary ---
Date of Service November 02, 2021 Admission HPI Per Admitting Provider Patient is a 71-year-old male with past medical history of ESRD receiving hemodialysis Friday, , Friday, type 2 diabetes mellitus with nephropathy, essential hypertension, hyperlipidemia, atrial fibrillation, and chronic anticoagulation on Eliquis who presented to the emergency room due to chief complaint of strokelike symptoms. Patient reports to me that this morning around 1:30 patient began having flank pain on the left side. Later in the morning he began having episodes of nausea and vomiting that seem to improve around 10 AM and patient felt overall fine for the remainder of the morning. Patient reports that his vomit consisted of only stomach acid/bile without any actual substance. Daughter then states that around 7 PM patient wanted to take a shower and the daughter had noted that it was taking a long time and she went to check on him. When she called to ask if he was all right, he only responded in mumbled words. Daughter went into the bathroom and found him hunched over in the shower supporting himself with the shower bar in the wall. Daughter guided the patient out of the shower and noticed when she was talking to him that he had slurred speech and facial droop. Daughter was concerned that the patient was having a stroke at that time called EMS. Prior to today starting at 1:30 AM, patient had no identifiable symptoms concerning for infection or kidney problems. Additionally reports dyspnea, however, this is a chronic issue for him and does not seem to be worse today compared to any other day. Denies any fevers, chills, chest pain, headache, or fatigue. Of note patient reports to me that for the past few years he has multiple episodes of difficulty with lightheadedness and presyncope with showering and standing from the seated position. Patient does not have a primary care provider and has not had this worked up. Denies having any previous episodes of strokelike symptoms in the past. ED course: Patient arrived via EMS and a stroke alert was called. Patient had head CT, head and neck CTA which had revealed severe stenosis of the left internal carotid artery, occlusion versus severe stenosis of the proximal right vertebral artery, occlusion versus severe stenosis of the proximal left external carotid artery. There is no hemorrhagic stroke identified and no criteria for ischemic stroke. MRI was ordered and pending at the time of writing this note. Blood work and revealed an elevated white count at 19.9 with a left shift, creatinine of 5.51, procalcitonin of 2.29, and a urinalysis suggestive of urinary tract infection. Troponin was mildly elevated at 20.6. Patient had noted the flank pain to the ED provider and at that point a CT of the abdomen and pelvis was done and it was found that there was gas within the bilateral collecting systems and left proximal ureter suggestive of emphysematous pyelitis. Lactate and ammonia level were also ordered after hospitalist was consulted Admission Exam Per Admitting Provider Constitutional: well developed and + obese; no acute distress Eyes: PERRL, conjunctivae normal, anicteric sclerae Neck: trachea midline, no thyromegaly Respiratory: normal respiratory effort, lungs clear to auscultation Cardiovascular: RRR, no murmur, no edema Vessels: no JVD and no carotid bruit Gastrointestinal (Abdomen): normal bowel sounds, soft, nontender, no hepatosplenomegaly Musculoskeletal: no cyanosis or clubbing, extremities motor strength 5/5 Head/Neck/Chest: normocephalic and head atraumatic Skin: no rashes, warm and dry Neurologic: CN's II-XI intact bilaterally, moves all extremities, + focal motor deficit and awake Speech / Cognition: + abnormal speech Motor/Sensory: no sensory deficit Facial drooping on the right, palate sag on the right, slurred speech Psychiatric: Orientation: alert, oriented x 3 and cooperative Lymphatic: no cervical or axillary lymphadenopathy Principal Diagnosis 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, emphysematous pyelitis Discharge Exam Constitutional: well developed and + obese; no acute distress Eyes: PERRL, conjunctivae normal, anicteric sclerae Neck: trachea midline, no thyromegaly Respiratory: normal respiratory effort, lungs clear to auscultation Cardiovascular: RRR, no murmur, no edema Vessels: no JVD and no carotid bruit Gastrointestinal (Abdomen): normal bowel sounds, soft, nontender, no hepatosplenomegaly L flank tenderness Musculoskeletal: no cyanosis or clubbing, extremities motor strength 5/5 Head/Neck/Chest: normocephalic and head atraumatic Skin: no rashes, warm and dry Neurologic: CN's II-XI intact bilaterally, moves all extremities, + focal motor deficit and awake Speech / Cognition: + abnormal speech Motor/Sensory: no sensory deficit Facial drooping on the right, slurred speech Psychiatric: Orientation: alert, oriented x 3 and cooperative Lymphatic: no cervical or axillary lymphadenopathy Discharge Data Allergies Allergy/AdvReac Type Severity Reaction Status Date / Time amlodipine AdvReac Severe FLU Verified 10/31/21 21:24 SYMPTONS Consultations 10/31/21 21:33 ED Decision to Admit Stat 11/01/21 01:25 Consult Nephrology Routine Consult Neurology Routine Consult Urology Routine 11/01/21 13:45 Burn CD for patient Routine Ordered Studies 10/31/21 20:07 CT angio head w con Stat CT angio neck with con Stat CT head/brain wo con Stat 10/31/21 20:16 CT abd pelvis IV con only Stat CT chest diagnostic w con Stat 10/31/21 22:38 MRI Brain [MR brain wo con] Stat Hospital Course (1) Acute ischemic stroke: Patient is a 71-year-old male with multiple comorbidities who presented to the emergency room for concern of stroke. A stroke alert was called and as of yet a CT and CTA have not shown evidence of hemorrhagic or ischemic stroke. MRI is pending at the time of writing this note. Patient has focal neurologic deficit including facial droop on the right side and slurred speech. Patient did not qualify for clot busters due to being on Eliquis for blood thinner. Over the course of his current hospitalization it does seem that his neurological deficits are improving and patient is hemodynamically stable. Additionally he has been found that he has sepsis secondary to likely emphysematous pyelitis and has been started on broad-spectrum antibiotics. Sepsis secondary to L emphysematous pyelitis -Admission WBC 22.25, CRP 1.9, procalcitonin 2.3, lactate wnl, urinalysis grossly infected -CTAP- gas noted within b/l collecting systems and proximal L ureter concerning for emphysematous pyelitis -Urology consulted -Do not suspect colovesical fistula -Pt will need definitive management with percutaneous nephrostomy- advised transfer -Vancomycin and Zosyn given in ER, switched to cefepime/daptomycin on admission -UCx growing king sensitive E Coli, BCx preliminary growth of gram negative rods -Abx de-escalated to ceftriaxone on 11/02, continue -Pt accepted for transfer to [facility] under accepting stroke physician Dr. hZang, awaiting bed availability/ transport Acute L frontal lobe ischemic stroke -Last known well of 7 PM on 10/31, no thrombolytics given since coming to ER -CT head/CTA head unremarkable -Neck CTA- severe stenoses of L ICA, L ECA, R vertebral artery -MRI demonstrating 2 small infarcts in superior L frontal lobe- 1.2 cm in size -Stroke likely due to atherosclerotic large-vessel disease given CTA neck findings -Speech/swallow evaluation- recommend initiating easy to chew diet -Diet ordered -Neuro checks q4h -Neurology consult -Continue risk reduction with high intensity statin, recommend adding Plavix 75 mg daily -Holding off on Plavix for now given pt may have nephrostomy promptly upon transfer ESRD on dialysis -Patient typically gets dialysis on Friday, , Friday -Nephrology consulted and managing dialysis -HD scheduled for tomorrow if pt still not transported to [place] -Cr 4.4 today -Trend BMP Atrial fibrillation -Not on any rate or rhythm control medications -Holding home Eliquis due to active stroke, continue anticoagulation with heparin infusion -Currently in atrial fibrillation, rate controlled Type 2 diabetes -Diet controlled, no insulin required at this time -BSGs wnl -Last A1c was 6.9 on 10/18/2021 Hyperlipidemia -Continue atorvastatin 40 mg due to active stroke Disposition: Medical with telemetry Diet: Easy to chew, renal, carb consistent DVT prophylaxis: Heparin infusion CODE STATUS: Full code (2) Emphysematous pyelonephritis: (3) Carotid arterial disease: (4) Atrial fibrillation, permanent: (5) Syncope: (6) Type 2 diabetes mellitus with complications: (7) End stage renal disease: (8) Vitamin D deficiency: (9) Hyperlipidemia: Total Time Total Time Spent Total Time Spent (In Minutes): 30 Discharge Plan Discharge Items Patient Disposition: Transfer Acute Care Hospital Reason For Visit: STROKE LIKE SYMPTOMS Discharge Diagnosis: Acute ischemic stroke, emphysematous pyelitis Activity: Resume your previous activity Non-emergency contact: Primary Care Provider Call non-emergency contact if: you have any medication questions, your symptoms worsen, your pain is worsening, your pain is unusual for you and you have a fever Follow-up/Referrals: PCP,NO [Primary Care Provider] - Diet: Carb Consistent or DM2 and Dialysis Renal Addtl Attending Provider Instructions: Patient is a 71-year-old male with multiple comorbidities who presented to the emergency room for concern of stroke. A stroke alert was called and as of yet a CT and CTA have not shown evidence of hemorrhagic or ischemic stroke. MRI is pending at the time of writing this note. Patient has focal neurologic deficit including facial droop on the right side and slurred speech. Patient did not qualify for clot busters due to being on Eliquis for blood thinner. Over the course of his current hospitalization it does seem that his neurological deficits are improving and patient is hemodynamically stable. Additionally he has been found that he has sepsis secondary to likely emphysematous pyelitis and has been started on broad-spectrum antibiotics. Sepsis secondary to L emphysematous pyelitis -WBC 22.25, CRP 1.9, procalcitonin 2.3, lactate wnl, urinalysis grossly infected -CTAP- gas noted within b/l collecting systems and proximal L ureter concerning for emphysematous pyelitis -Urology consulted -Do not suspect colovesical fistula -Pt will need definitive management with percutaneous nephrostomy- advised transfer -Vancomycin and Zosyn given in ER, switched to cefepime/daptomycin on admission -UCx growing king sensitive E Coli, BCx preliminary growth of gram negative rods -Abx de-escalated to ceftriaxone on 11/02, continue -Pt accepted for transfer to [facility] under accepting stroke physician Dr. hZang, awaiting bed availability Acute L frontal lobe ischemic stroke -Last known well of 7 PM on 10/31, no thrombolytics given since coming to ER -CT head/CTA head unremarkable -Neck CTA- severe stenoses of L ICA, L ECA, R vertebral artery -MRI demonstrating 2 small infarcts in superior L frontal lobe- 1.2 cm in size -Stroke likely due to atherosclerotic large-vessel disease given CTA neck findings -Speech/swallow evaluation- recommend initiating easy to chew diet -Diet ordered -Neuro checks q4h -Neurology consult -Continue risk reduction with high intensity statin, recommend adding Plavix 75 mg daily -Holding off on Plavix for now given pt may have nephrostomy promptly upon transfer ESRD on dialysis -Patient typically gets dialysis on Friday, , Friday -Nephrology consulted and managing dialysis -HD scheduled for tomorrow if pt still not transported to [place] -Cr 4.4 today -Trend BMP Atrial fibrillation -Not on any rate or rhythm control medications -Holding home Eliquis due to active stroke, continue anticoagulation with heparin infusion -Currently in atrial fibrillation, rate controlled Type 2 diabetes -Diet controlled, no insulin required at this time -BSGs wnl -Last A1c was 6.9 on 10/18/2021 Hyperlipidemia -Continue atorvastatin 40 mg due to active stroke Disposition: Medical with telemetry Diet: Easy to chew, renal, carb consistent DVT prophylaxis: Heparin infusion CODE STATUS: Full code Pending Studies at Discharge: No Stand-Alone Forms: Medications to Prevent Stroke, My [facility] Skilled Items Patient informed of condition?: Yes DNR: No Discharge Level of Care: Other Communicable Disease: No Discharge Prognosis: Improving Lines: Peripheral IV Urinary Catheter: No Medications and DC Order Prescriptions: Continued Eliquis 5 mg tablet 5 mg PO BID Qty: 60 11RF calcium acetate(phosphat bind) 667 mg capsule 667 mg PO .QSUPPER ProRenal 8 mg iron-800 mcg-1,000 unit tablet 1 tab PO DAILY atorvastatin [Lipitor] 40 mg tablet 40 mg PO HS lidocaine-prilocaine 2.5-2.5 % cream 1 applic topical DIRECTED Rx Instructions: APPLY SMALL AMT TO ACCESS SITE BEFORE DIALYSIS Discharge Orders: Discharge Order (Routine); Ordered 11/01/21 Ordered By: Alex Moore Admission Data Admit Date/Time: 10/31/21 23:13 Attending Provider: El Flores Admit Provider: Trent Pavon Primary Care Provider: PCP,NO Other Providers: Davon Chavira ; Darren Mcdowell ; Renny Stinson ; Jamie Aguirre Supervising Physician Co-Signing Physician Notes I personally examined the patient and verified all landin points of history and exam, discussed case, and agree with decision making with Dr Moore Feeling a bit better. For transfer today. Vitals noted, in general he is awake and alert pleasant no distress. HEENT normocephalic atraumatic mucous membranes moist. Breathing unlabored no accessory muscle use good effort. Skin shows no rashes no pallor or icterus. Neuro without focal deficits. Emphysematous pyelitis with sepsiscontinue broad antibiotic coveragefortunately appears to be overall stable in his current ill situationurology recommends transfer for nephrostomy tubeswhich has been set up for [place]. Continue current care pending transfer. Sepsis is improving Strokelikely intracranial atherosclerosis and hypoperfusion in his septic status given the stroke appearance on MRIbut difficult to rule out large vessel atheroembolic given his ipsilateral carotid stenosis. Treating the sepsis to improve perfusion. Secondary risk reduction/med managementagree with antiplatelet, but given his sepsis and possible need for urgent intervention for source controlholding off on initiating Plavix until nephrostomy tubes have been placed. for transfer, otherwise as above Resident Activity Tracking Resident Involvement: Resident Care Provided Care Provided: Adult [facility] Medicine
--- NOTE | 2021-11-02 14:55 | Hospitalist Progress Note ---
Date of Service November 01, 2021 Assessment & Plan (1) Acute ischemic stroke: Plan: Patient is a 71-year-old male with multiple comorbidities who presented to the emergency room for concern of stroke. A stroke alert was called and as of yet a CT and CTA have not shown evidence of hemorrhagic or ischemic stroke. MRI is pending at the time of writing this note. Patient has focal neurologic deficit including facial droop on the right side and slurred speech. Patient did not qualify for clot busters due to being on Eliquis for blood thinner. Over the course of his current hospitalization it does seem that his neurological deficits are improving and patient is hemodynamically stable. Additionally he has been found that he has sepsis secondary to likely emphysematous pyelitis and has been started on broad-spectrum antibiotics. Sepsis secondary to L emphysematous pyelitis -Admission WBC 22.25, CRP 1.9, procalcitonin 2.3, lactate wnl, urinalysis grossly infected -CTAP- gas noted within b/l collecting systems and proximal L ureter concerning for emphysematous pyelitis -Urology consulted -Do not suspect colovesical fistula -Pt will need definitive management with percutaneous nephrostomy- advised transfer -Vancomycin and Zosyn given in ER, switched to cefepime/daptomycin on admission -UCx growing king sensitive E Coli, BCx preliminary growth of gram negative rods -Abx de-escalated to ceftriaxone on 11/02, continue -Pt accepted for transfer to [facility] under accepting stroke physician Dr. Zhang, awaiting bed availability/ transport Acute L frontal lobe ischemic stroke -Last known well of 7 PM on 10/31, no thrombolytics given since coming to ER -CT head/CTA head unremarkable -Neck CTA- severe stenoses of L ICA, L ECA, R vertebral artery -MRI demonstrating 2 small infarcts in superior L frontal lobe- 1.2 cm in size -Stroke likely due to atherosclerotic large-vessel disease given CTA neck findings -Speech/swallow evaluation- recommend initiating easy to chew diet -Diet ordered -Neuro checks q4h -Neurology consult -Continue risk reduction with high intensity statin, recommend adding Plavix 75 mg daily -Holding off on Plavix for now given pt may have nephrostomy promptly upon transfer ESRD on dialysis -Patient typically gets dialysis on Friday, , Friday -Nephrology consulted and managing dialysis -HD scheduled for tomorrow if pt still not transported to [place] -Cr 4.4 today -Trend BMP Atrial fibrillation -Not on any rate or rhythm control medications -Holding home Eliquis due to active stroke, continue anticoagulation with heparin infusion -Currently in atrial fibrillation, rate controlled Type 2 diabetes -Diet controlled, no insulin required at this time -BSGs wnl -Last A1c was 6.9 on 10/18/2021 Hyperlipidemia -Continue atorvastatin 40 mg due to active stroke Disposition: Medical with telemetry Diet: Easy to chew, renal, carb consistent DVT prophylaxis: Heparin infusion CODE STATUS: Full code (2) Emphysematous pyelonephritis: (3) Carotid arterial disease: (4) Atrial fibrillation, permanent: (5) Syncope: (6) Type 2 diabetes mellitus with complications: (7) End stage renal disease: (8) Vitamin D deficiency: (9) Hyperlipidemia: Admission and Anticipated Discharge Date Admission Date: October 31, 2021 Supervising Physician Co-Signing Physician Notes I personally examined the patient and verified all landin points of history and exam, discussed case, and agree with decision making with Dr Moore Feeling surprisingly well. Awaiting dialysis whenever I see him. Awaiting transferalready accepted just waiting on a bed. Vitals noted, in general he is awake and alert pleasant no distress. HEENT normocephalic atraumatic mucous membranes moist. Breathing unlabored no accessory muscle use good effort. Skin shows no rashes no pallor or icterus. Neuro without focal deficits. Emphysematous pyelitis with sepsiscontinue broad antibiotic coveragefortunately appears to be overall stable in his current ill situationurology recommends transfer for nephrostomy tubeswhich has been set up for [place]. Continue current care pending transfer. Strokelikely intracranial atherosclerosis and hypoperfusion in his septic status given the stroke appearance on MRIbut difficult to rule out large vessel atheroembolic given his ipsilateral carotid stenosis. Treating the sepsis to improve perfusion. Secondary risk reduction/med managementagree with antiplatelet, but given his sepsis and possible need for urgent intervention for source controlholding off on initiating Plavix until nephrostomy tubes have been placed. for transfer, otherwise as above Subjective No acute events overnight. Pt doing well, denies headache, weakness, numbness. Reports some moderate L flank pain, no nausea/vomiting. Review of Systems Review of Systems: Per subjective Physical Exam Physical Exam: Constitutional:L well developed and + obese; no acute distress Eyes: PERRL, conjunctiva e normal, anicteri c sclerae Neck: trachea midline, n o thyromegaly Respiratory: normal respiratory effort, lungs dorinda ar to auscultation Cardiovascular:L RRR, no murmur, no edema Vessels: n o JVD and no carot id bruit Gastrointestinal ( Abdomen): normal bowel sound s, soft, nontender , no hepatosplenom egaly L flank ten derness Musculoskeletal: no cyanosis or clu bbing, extremities motor strength 5/ 5 Head/Neck/Chest : normocephalic an d head atraumatic Skin: no rashes, warm an d dry Neurologic: CN's II-XI intact bilaterally, moves all extremities, + focal motor defi cit and awake Spe ech / Cognition: + abnormal speech Motor/Sensory: no sensory deficit F acial drooping on the right, slurred speech Psychiatric: Orientation: alert , oriented x 3 and cooperative Lymphatic: no cervical or axi llary lymphadenopa thy Results & Data Results & Data ([facility]) Vital Signs (Past 12 Hours) Vital Signs Temp Pulse Pulse Pulse Resp BP Pulse Ox 11/02/21 11:39 37.2 C 82 20 157/75 H 95 11/02/21 06:38 75 11/02/21 07:37 36.8 C 88 20 141/52 H 90 11/02/21 03:50 36.8 C 76 22 109/70 94 O2 Del Method 11/02/21 11:39 Room Air 11/02/21 06:38 11/02/21 07:37 Room Air 11/02/21 03:50 Room Air Resident Activity Tracking Resident Involvement: Resident Care Provided Care Provided: Adult Hospital Medicine (1) Carotid arterial disease Carotid artery disease type: unspecified Laterality: bilateral Qualified Code(s): I77.9 - Disorder of arteries and arterioles, unspecified
[2021-11-02] MEDS ORDERED: cefTRIAXone SODIUM 2,000 MG in DEXTROSE 5% 50 ML IV SCH (16:00)
--- NOTE | 2021-11-02 19:09 | Billing Data ---
Date of Service November 01, 2021 Coding Level of Care Code 45648 Subseq Hosp Care Lvl 3 Comment disregard dc code, pt left 11/02 instead
--- NOTE | 2021-11-02 19:09 | Billing Data ---
Date of Service November 02, 2021 Coding Level of Care Code D/C DAY MANAGEMENT <30 MINS
[2021-11-03] MEDS ORDERED: SODIUM CHLORIDE 0.9% 1000ML 1,000 ML IV PRN (07:00)
== END 2021-11-02 16:10 | disposition short-term general hospital (02) | DRG 871 ==
LOC: ED 20:08 → SUATTDRO 23:13 → EDINP 23:13 → 2S 11-01 16:09
DX: I65.23 Occlusion and stenosis of bilateral carotid arteries; E78.5 Hyperlipidemia, unspecified; R29.810 Facial weakness; E11.22 Type 2 diabetes mellitus with diabetic chronic kidney disease; N12 Tubulo-interstitial nephritis, not specified as acute or chronic; I48.21 Permanent atrial fibrillation; E55.9 Vitamin D deficiency, unspecified; I63.30 Cerebral infarction due to thrombosis of unspecified cerebral artery; R47.81 Slurred speech; N18.6 End stage renal disease; Z79.01 Long term (current) use of anticoagulants; A41.9 Sepsis, unspecified organism; R29.704 NIHSS score 4

== ENCOUNTER 2023-02-17 15:43 | Inpatient (IN) ==
[2023-02-17] MEDS ORDERED: SODIUM CHLORIDE 0.9% 500 ML IV ONE (16:14)
--- NOTE | 2023-02-17 16:14 | ED Triage Note ---
Date of Service February 17, 2023 History of Present Illness This patient was briefly evaluated while in triage. An abbreviated physical exam was performed. This patient is a 72-year-old Male who presents to the ED for evaluation of pressure sores on the back of both heels. Family states that he has had some weakness recently and was hospitalized then sent to a rehab facility. Family states the ulcers have been worsening and have a foul smell. Physical Exam VITALS: Vitals are noted on the nurse's note and reviewed by myself. GENERAL: This is a 72-year-old male, in no acute distress, sitting in a wheelchair in triage. HEART: Regular rate and rhythm without murmurs gallops or rubs. LUNGS: Clear to auscultation bilaterally without wheezes, rales or rhonchi. EXTREMITIES: Orthopedic boots in place to bilateral lower extremities. NEURO: Patient was alert and oriented. Initial orders for labs and / or imaging were placed and patient was placed in the waiting area until a bed is available. Please see further documentation for the full ED course. MDM / Impression Impression Impression: Nonhealing wound of heel
[2023-02-17] MEDS ORDERED: SODIUM CHLORIDE 0.9% 250 ML IV ONE (16:42)
[2023-02-17 17:24] LABS: Basophils # (auto) 0.03 K/uL (0.00-0.20); Basophils % (auto) 0.3 %; Eosinophils # (auto) 0.01 K/uL (0.00-0.50); Eosinophils % (auto) 0.1 %; Hematocrit (blood only) 40.4 % (42.0-52.0); Hemoglobin 12.7 g/dl (14.0-18.0); Immature Granulocytes # (auto) 0.09 K/uL (0.01-0.20); Immature Granulocytes % (auto) 0.8 %; Lymphocytes # (auto) 0.83 K/uL (1.20-3.40); Lymphocytes % (auto) 7.3 %; Mean Corpuscular Hemoglobin 30.6 pg (25.0-34.0); Mean Corpuscular Hgb Conc 31.4 g/dL (32.0-36.0); Mean Corpuscular Volume 97.3 fL (80.0-100.0); Mean Platelet Volume 10.1 fL (9.4-12.4); Monocytes # (auto) 0.92 K/uL (0.11-0.59); Monocytes % (auto) 8.1 %; Neutrophils # (auto) 9.54 K/uL (1.40-6.50); Neutrophils % (auto) 83.4 %; Platelet Count 278 K/uL (130-400); RDW Coefficient of Variation 13.5 % (11.5-14.5); RDW Standard Deviation 48.4 fL (36.4-46.3); Red Blood Count 4.15 M/uL (4.70-6.10); White Blood Count 11.42 K/ul (4.8-10.8)
[2023-02-17] MEDS ORDERED: PIPERACILLIN/TAZOBACTAM 4.5 GM/100 ML BAG IV ONE (17:36)
[2023-02-17 17:46] LABS: Albumin Globulin Ratio 0.9 (0.9-2); Albumin Level 3.5 gm/dl (3.4-5.0); BUN Creatinine Ratio 5.5 (10-20); Bilirubin,Total 0.7 mg/dl (0.2-1.0); Calcium 9.4 mg/dl (8.6-10.3); Creatinine Clr Calc Pharmacy 21.6 ml/min; Est GFR (African American) 18.1 ml/min; Est GFR (Non-African American) 15.6 ml/min; Globulin 3.7 gm/dl (2.5-4.0); Potassium 4.5 mmol/L (3.5-5.1); Total Protein 7.2 gm/dl (6.0-8.3)
[2023-02-17] MEDS ORDERED: VANCOMYCIN CONSULT ACTIVE PRN (17:59)
[2023-02-17] MEDS ORDERED: VANCOMYCIN HCL 2,000 MG in SODIUM CHLORIDE 0.9% 500 ML IV ONE (17:59)
--- NOTE | 2023-02-17 18:32 | XRay Report ---
XR calcaneus LT min 2V, XR calcaneus RT min 2V CLINICAL HISTORY: wound TECHNIQUE: 2 views of the bilateral calcaneus were obtained. Comparison: None available at the time of this dictation. FINDINGS: No fractures are present. The alignment is anatomic. The joint spaces are well preserved. Vascular ca lcifications are seen. IMPRESSION: No evidence of acute bony injury. ACT 112: Negative or not required by law. Electronically signed by: Danny Blank M.D. 02/17/2023 6:31 PM
--- NOTE | 2023-02-17 18:36 | Emergency Department Note ---
Impression & Plan Nonhealing wound of heel, CKD (chronic kidney disease), Hyperglycemia ED Provider Note ED Provider Note NAME: JENIFFER JUNIOR AGE:72 SEX: Male : 1950 ARRIVES VIA: private vehicle INFORMANT: Patient ED PROVIDER(s): Margaux Paulino DO CHIEF COMPLAINT: heel wounds HPI: This is a 72-year-old male presents emerged part with family bedside due to concern for worsening wounds to bilateral heels. Patient states they began when he was in rehab center care. He denies fevers or chills. Family states he has been weaker recently. He does have difficulty walking since a prior stroke. Patient is a diabetic and does have chronic kidney disease and is on dialysis. He was dialyzed earlier today prior to arrival. Family states they did notice chills earlier today despite the patient's denial. They state his appetite has been normal. Family states they did try to contact wound care however cannot get an appointment until March 05. PAST MEDICAL HISTORY:See Below PAST SURGICAL HISTORY:See Below FAMILY HISTORY:See Below SOCIAL HISTORY:See Below HOME MEDICATIONS:See Below ALLERGIES:See Below VITALS:See Below PHYSICAL EXAMINATION: GENERAL: alert, well appearing, well nourished, no distress, non-toxic EYE EXAM: normal conjunctiva, PERRL and EOM's grossly intact OROPHARYNX: no exudate, no erythema, lips, buccal mucosa, and tongue normal and mucous membranes are moist NECK: supple, no nuchal rigidity, no adenopathy, non-tender LUNGS: Clear to auscultation. Normal chest wall mechanics, no w/r/r HEART: no murmurs, S1 normal and S2 normal ABDOMEN: abdomen soft, non-tender, normo-active bowel sounds, no masses, no rebound or guarding. BACK: Back is symmetrical on inspection and there is no deformity, no midline tenderness, no CVA tenderness. SKIN: no rashes, petechiae, orbruising UPPER EXTREMITIES: upper extremities are grossly normal. FROM, nml pulses b/l. LOWER EXTREMITIES: No pitting edema. FROM, nml pulses b/l. Ulcerative wounds noted b/l heels with foul odor and discharge noted, culture obtained, purpuric discoloration noted to left heel wound additionally NEURO EXAM: Normal sensorium, cranial nerves II-XII grossly intact, normal speech, no facial droop,nogross weakness of arms, no gross weakness of legs. Gross sensation intact. No ataxia. Vital Signs: reviewed and remarkable Differential Diagnosis: ulcerative lesion, cellulitis, osteomyelitis, nonhealing wound, arterial insufficiency, as well as others were considered MEDICAL DECISION MAKING: This is a 72 yo male brought in by family due to concern for wound infection to b/l heels. Patient is know diabetic, no hx of MRSA. Patient afebrile and VSS. Labs drawn and sent, IV established, EKG and xrays performed and interpreted at bedside, and patient placed on telemetry. Culture of wound obtained and patient started on vancomycin and zosyn after blood cultures obtained. Given patient is a dialysis patient he was no given significant IVF. He was given a small fluid bolus. Patient noted to have an elevated lactic acid. Procalcitonin elevated additionally. Case discussed with the hospitalist for additional evaluation. Consultation(s): 1854: DIscussed with Dr. Moran, [place] hospitalist, for additional evaluation and mgmt. ER Treatment Provided: See below Diagnostics Interpreted By Me: -ECG: a.fib at 79, nml axis, nml qrs/qtc, nonspecific ST/T wave changes -Cardiac Monitoring: An order was placed for continuous cardiac monitoring. The monitor shows a rate of 86 with normal sinus rhythm. -Laboratory studies: As stated above and show below. -Imaging studies: xrays b/l heels: no obvious osteomyelitis Triage Nursing Note Reviewed Prior/Outside Records Reviewed - prior DC summary reviewed Past Med/Surg History Medical History (Updated 02/18/23 @ 21:51 by Margaux Paulino DO) CVA (cerebral vascular accident) End stage renal disease Carotid arterial disease Orthostatic hypotension Atrial fibrillation, permanent Fistula left arm Diabetes type 2, controlled ESRD (end stage renal disease) on dialysis Hyperlipidemia Hypertension Presence of arteriovenous fistula for hemodialysis, primary Surgical History S/P carotid endarterectomy History of tooth extraction History of surgery on arm Family History Mother , age 65 of cancer -uncertain type Cancer Father , in his 50s of cancer Stomach cancer Esophagus cancer Cancer Cancer of bowel Sister Kidney stone Social History Smoking Status: Never smoker Second Hand Exposure: No; Do You Dip or Chew Tobacco: No; Hx Alcohol Use: No Hx Substance Use: No Preferred Language: [place] Communication Ability: Effective 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 Beliefs That Will Affect Care: None marital status: Current Living Situation: Family Current Living Situation Comment: daughter lives w/ patient current occupational status: retired current occupation: retired age 64 from [employer] Feels Safe at Home: Yes Assistive Devices: Hospital Bed, Walker and Wheelchair Allergies Allergies Allergy/AdvReac Type Severity Reaction Status Date / Time amlodipine AdvReac Severe FLU Verified 01/08/23 22:00 [facility] Home Meds Home Medications Medication Instructions Recorded Confirmed lidocaine-prilocaine 2.5 %-2.5 % 1 applic topical DIRECTED 08/17/20 02/17/23 topical cream vit B complx, C-iron 8 mg-folic 1 tab PO DAILY 08/17/20 02/17/23 acid 800 mcg-D3 1,000 unit-zinc tablet (ProRenal) clopidogrel 75 mg tablet 75 mg PO DAILY 02/13/22 02/17/23 folic acid 1 mg tablet 2 mg PO DAILY 02/13/22 02/17/23 sevelamer carbonate 800 mg tablet 800 mg PO TID 02/13/22 02/17/23 acetaminophen 650 mg 1,300 mg PO DAILY PRN Pain 12/17/22 02/17/23 tablet,extended release atorvastatin 10 mg tablet 10 mg PO HS 02/17/23 02/17/23 midodrine 5 mg tablet 5 mg PO TID PRN low BP 02/17/23 02/17/23 Previous Rx's Medication Instructions Recorded apixaban 5 mg tablet (Eliquis) 5 mg PO BID #60 tabs 08/12/22 fludrocortisone 0.1 mg tablet 0.1 mg PO DAILY #90 tabs 11/08/22 Results & Data (ED) Vital Signs Vital Signs - 24 hr 02/17/23 16:11 Temperature 36.5 C Temperature Source Temporal Artery Scan Pulse Rate 93 H Respiratory Rate 18 Respiratory Effort / Characteristics Non-Labored Respiratory Depth Normal Blood Pressure 87/53 L Blood Pressure Mean 64 Pulse Oximetry 96 Oxygen Delivery Method Room Air Sepsis Recent Fever Within 48 Hours No Sepsis New/Unexplained Change in Mental Status No Sepsis Action Taken by Nursing No Action Required Laboratory Data 02/18/23 04:44 02/18/23 04:44 Lab Results 02/17/23 02/17/23 Range/Units 17:03 19:17 WBC 11.42 H (4.8-10.8) K/ul RBC 4.15 L (4.70-6.10) M/uL Hgb 12.7 L (14.0-18.0) g/dl Hct 40.4 L (42.0-52.0) % MCV 97.3 (80.0-100.0) fL MCH 30.6 (25.0-34.0) pg MCHC 31.4 L (32.0-36.0) g/dL RDW Std Deviation 48.4 H (36.4-46.3) fL RDW Coeff of Mukul 13.5 (11.5-14.5) % Plt Count 278 (130-400) K/uL MPV 10.1 (9.4-12.4) fL Immature Gran % (Auto) 0.8 % Neut % (Auto) 83.4 % Lymph % (Auto) 7.3 % [place] % (Auto) 8.1 % Eos % (Auto) 0.1 % Baso % (Auto) 0.3 % Neut # (Auto) 9.54 H (1.40-6.50) K/uL Lymph # (Auto) 0.83 L (1.20-3.40) K/uL [place] # (Auto) 0.92 H (0.11-0.59) K/uL Eos # (Auto) 0.01 (0.00-0.50) K/uL Baso # (Auto) 0.03 (0.00-0.20) K/uL Immature Gran # (Auto) 0.09 (0.01-0.20) K/uL Sodium 139 (136-145) mmol/L Potassium 4.5 (3.5-5.1) mmol/L Chloride 95 L (98-107) mmol/L Carbon Dioxide 33 H (21-32) mmol/L Anion Gap 11 (3-11) BUN 20 (6-23) mg/dl Creatinine 3.65 H (0.6-1.4) mg/dl Est Cr Clr Drug Dosing 21.6 ml/min Est GFR ( Amer) 18.1 ml/min Est GFR (Non-Af Amer) 15.6 ml/min BUN/Creatinine Ratio 5.5 L (10-20) Glucose 192 H (70-99(Fasting)) mg/dl Lactate 4.2 H* 2.5 H* (0.4-2.0) mmol/L Calcium 9.4 (8.6-10.3) mg/dl Total Bilirubin 0.7 (0.2-1.0) mg/dl AST 22 (13-39) U/L ALT 12 (7-52) U/L Alkaline Phosphatase 162 H (34-104) U/L Total Protein 7.2 (6.0-8.3) gm/dl Albumin 3.5 (3.4-5.0) gm/dl Globulin 3.7 (2.5-4.0) gm/dl Albumin/Globulin Ratio 0.9 (0.9-2) Procalcitonin 0.65 H (0-0.5) ng/ml Administered Medications Acetaminophen (Acetaminophen 500 Mg Tab) 1,000 mg PO TID JENNIFER Stop: 03/20/23 08:59 Last Admin: 02/18/23 13:57 Dose: 1,000 mg Documented By: Admin: 02/18/23 08:26 Dose: 1,000 mg Documented By: AM Apixaban (Apixaban 5 Mg Tablet) 5 mg PO BID JENNIFER Stop: 03/19/23 20:59 Last Admin: 02/18/23 08:25 Dose: 5 mg Documented By: Admin: 02/17/23 22:05 Dose: 5 mg Documented By: CHANA Atorvastatin Calcium (Atorvastatin 10 Mg Tab) 10 mg PO HS JENNIFER Stop: 03/19/23 20:59 Last Admin: 02/17/23 22:12 Dose: Not Given Documented By: CHANA Clopidogrel Bisulfate (Clopidogrel Bisulfate 75 Mg Tab) 75 mg PO DAILY JENNIFER Stop: 03/20/23 08:59 Last Admin: 02/18/23 08:25 Dose: 75 mg Documented By: AM Fludrocortisone Acetate (Fludrocortisone Acetate 0.1 Mg Tab) 0.1 mg PO DAILY JENNIFER Stop: 03/20/23 08:59 Last Admin: 02/18/23 08:25 Dose: 0.1 mg Documented By: AM Folic Acid (Folic Acid 1 Mg Tab) 2 mg PO DAILY JENNIFER Stop: 03/20/23 08:59 Last Admin: 02/18/23 08:31 Dose: 2 mg Documented By: NIRMALA Piperacillin Sod/Tazobactam (Sod 4.5 gm/ Dextrose) 100 mls @ 25 mls/hr IV Q12H JENNIFER; Protocol Stop: 02/25/23 05:59 Last Admin: 02/18/23 18:47 Dose: 25 mls/hr Documented By: Infusion: 02/18/23 11:20 Dose: Infused Documented By: Admin: 02/18/23 06:34 Dose: 25 mls/hr Documented By: CHANA Daptomycin 450 mg/ Syringe 9 mls @ 5 mls/min IV Q48H JENNIFER; Protocol Stop: 04/01/23 17:59 Last Admin: 02/18/23 18:44 Dose: 5 mls/min Documented By: GREGORY Midodrine (Midodrine Hcl 2.5 Mg Tab) 5 mg PO TID@0700,1200,1700 JENNIFER Stop: 03/20/23 06:59 Last Admin: 02/18/23 18:43 Dose: 5 mg Documented By: Admin: 02/18/23 11:38 Dose: 5 mg Documented By: Admin: 02/18/23 06:32 Dose: 5 mg Documented By: CHANA Sevelamer HCl (Sevelamer Hcl 800 Mg Tablet) 800 mg PO TIDM JENNIFER Stop: 03/20/23 07:59 Last Admin: 02/18/23 18:43 Dose: 800 mg Documented By: SoniaO Admin: 02/18/23 11:38 Dose: 800 mg Documented By: Admin: 02/18/23 08:27 Dose: 800 mg Documented By: AM Vitamin B Complex/Folic Acid (Nephrocaps) 1 cap PO DAILY JENNIFER Stop: 03/20/23 08:59 Last Admin: 02/18/23 08:25 Dose: 1 cap Documented By: NIRMALA Discontinued Medications Sodium Chloride (Nss) 500 mls @ 999 mls/hr IV .Q31M ONE Stop: 02/17/23 16:44 Last Infusion: 02/17/23 17:37 Dose: Infused Documented By: Admin: 02/17/23 16:58 Dose: 999 mls/hr Documented By: RHIANNON Sodium Chloride (Nss) 250 mls @ 999 mls/hr IV .Q16M ONE Stop: 02/17/23 16:57 Last Infusion: 02/17/23 17:17 Dose: Infused Documented By: Admin: 02/17/23 16:57 Dose: 999 mls/hr Documented By: RHIANNON Piperacillin Sod/Tazobactam Sod (Zosyn) 4.5 gm in 100 mls @ 200 mls/hr IV NOW ONE Stop: 02/17/23 18:05 Last Infusion: 02/17/23 18:30 Dose: Infused Documented By: Admin: 02/17/23 17:47 Dose: 200 mls/hr Documented By: RHIANNON Vancomycin HCl 2,000 mg/ (Sodium Chloride) 540 mls @ 200 mls/hr IV NOW ONE Stop: 02/17/23 20:40 Last Infusion: 02/18/23 01:10 Dose: Infused Documented By: Admin: 02/17/23 18:54 Dose: 200 mls/hr Documented By: RHIANNON Imaging Data Radiologist's Impression: Calcaneus X-Ray 02/17/23 16:42 XR calcaneus LT min 2V, XR calcaneus RT min 2V CLINICAL HISTORY: wound TECHNIQUE: 2 views of the bilateral calcaneus were obtained. Comparison: None available at the time of this dictation. FINDINGS: No fractures are present. The alignment is anatomic. The joint spaces are well preserved. Vascular calcifications are seen. IMPRESSION: No evidence of acute bony injury. ACT 112: Negative or not required by law. Electronically signed by: Danny Blank M.D. 02/17/2023 6:31 PM Calcaneus X-Ray 02/17/23 16:42 XR calcaneus LT min 2V, XR calcaneus RT min 2V CLINICAL HISTORY: wound TECHNIQUE: 2 views of the bilateral calcaneus were obtained. Comparison: None available at the time of this dictation. FINDINGS: No fractures are present. The alignment is anatomic. The joint spaces are well preserved. Vascular calcifications are seen. IMPRESSION: No evidence of acute bony injury. ACT 112: Negative or not required by law. Electronically signed by: Danny Blank M.D. 02/17/2023 6:31 PM Discharge Plan Visit Data Chief Complaint: Wound Stated Complaint: PRESSURE SORES ON HEELS/BLACK, EDEMA IN ANKELS ED Provider: Margaux Paulino Discharge Problem: Nonhealing wound of heel, CKD (chronic kidney disease), Hyperglycemia Patient Disposition: Admitted As Inpatient Discharge Instructions Interventions: ED Discharge Assessment Last Done: 02/18/23 15:55
--- NOTE | 2023-02-17 19:19 | History & Physical Report ---
Date of Service February 17, 2023 Assessment & Plan (1) Sepsis: Plan: < 30 ml/kg fluid bolus due to ESRD on dialysis Lactate 4.2 -> 2.5, he is mentating normally, will hold off further fluid resuscitation at this time Suspected source right heel ulcer and surrounding cellulitis Follow up blood cultures Vancomycin / Zosyn (2) Unstageable pressure ulcer of right heel: Plan: Appears to be the worst of both sides US arterial doppler MRI ankle Consult ortho Wound care consult (3) Unstageable pressure ulcer of left heel: (4) Left arm weakness: Plan: Reason for last admission. Noted to be improving with rehabilitation. Unclear if he ever had MRI cervical spine but given this is improving will defer on admission. Alternatively may be his rotator cuff. (5) End stage renal disease: Plan: Consult nephrology. usually on Friday//Friday dialysis but because of the holidays he had dialysis today. (6) Type 2 diabetes mellitus with complications: Plan: Appears to be a prior diagnosis as no longer on medication for this. HbA1C 6.4 in November, no need to repeat this (7) Atrial fibrillation, permanent: Plan: Continue apixaban for anticogualtion Rate controlled without AV neal blocking agents Plan VTE Prophylaxis - Eliquis Diet - dialysis renal Disposition - admit to PCU Admission and Anticipated Discharge Date Admission Date: February 17, 2023 History of Present Illness Chief Complaint: Bilateral heel ulcers Primary Care Provider: Tamiko Donovan DO Rey Blue is a 72 years old male with ESRD on dialysis who presents to the ER with his daughter due to concerns for worsening heel ulcers. She reports these were presents during his visit in November but only very minor at that time and not really open. They have been getting progressively worse despite air boot and regular dressing changes. He has not been on recent antibiotics for it. His daughter has been trying to get him in to wound care but next appointment was March 05. He was seen by his boiler out today at dialysis and advised to come to the ER for further treatment. He was recently admitted December 17 - 2022 due to left upper extremity weakness. No stroke on MRI. They actually went to [place] for a second opinion following hospitalization here as appears the weakness was very significant but no explanation was given for this. He went to [facility] and reports this has been improving with rehabilitation. His daughter reports his left arm suddenly went tingly, 2 weeks after that his right arm had the same this and then b/l lower extremity weakness. 2 days later. Before this hospitalization he was walking around without the walker and mowing with a sit on mower but is now a 2 person assist. Allergies Allergy/AdvReac Type Severity Reaction Status Date / Time amlodipine AdvReac Severe FLU Verified 01/08/23 22:00 [facility] Home Medications Medication Instructions Recorded Confirmed Type lidocaine-prilocaine 2.5 %-2.5 % 1 applic topical DIRECTED 08/17/20 02/17/23 History topical cream vit B complx, C-iron 8 mg-folic 1 tab PO DAILY 08/17/20 02/17/23 History acid 800 mcg-D3 1,000 unit-zinc tablet (ProRenal) clopidogrel 75 mg tablet 75 mg PO DAILY 02/13/22 02/17/23 History folic acid 1 mg tablet 2 mg PO DAILY 02/13/22 02/17/23 History sevelamer carbonate 800 mg tablet 800 mg PO TID 02/13/22 02/17/23 History apixaban 5 mg tablet (Eliquis) 5 mg PO BID #60 tabs 08/12/22 02/17/23 Rx fludrocortisone 0.1 mg tablet 0.1 mg PO DAILY #90 tabs 11/08/22 02/17/23 Rx acetaminophen 650 mg 1,300 mg PO DAILY PRN Pain 12/17/22 02/17/23 History tablet,extended release atorvastatin 10 mg tablet 10 mg PO HS 02/17/23 02/17/23 History midodrine 5 mg tablet 5 mg PO TID PRN low BP 02/17/23 02/17/23 History Past Med/Surg History Medical History Carotid arterial disease Acute ischemic stroke Orthostatic hypotension Atrial fibrillation, permanent Fistula left arm Diabetes type 2, controlled ESRD (end stage renal disease) on dialysis Hyperlipidemia Hypertension Presence of arteriovenous fistula for hemodialysis, primary Surgical History S/P carotid endarterectomy History of tooth extraction History of surgery on arm Family History Mother , age 65 of cancer -uncertain type Cancer Father , in his 50s of cancer Stomach cancer Esophagus cancer Cancer Cancer of bowel Sister Kidney stone Social History Smoking Status: Never smoker Second Hand Exposure: No; Do You Dip or Chew Tobacco: No; Hx Alcohol Use: No Hx Substance Use: No Preferred Language: Frisian Communication Ability: Effective Hr Receptionist Required: No Beliefs That Will Affect Care: None marital status: Current Living Situation: Family Current Living Situation Comment: daughter lives w/ patient current occupational status: retired current occupation: retired age 64 from [employer] Feels Safe at Home: Yes Assistive Devices: Glasses, Hospital Bed, Raised Toilet Seat, Scooter/Electric Scooter, Walker and Wheelchair Review of Systems Review of Systems: All systems reviewed & are unremarkable except as noted in HPI & below Physical Exam Constitutional: WD/WN, vitals as above Eyes: PERRL, conjunctivae normal, anicteric sclerae ENMT: external ear and nose normal, oropharynx normal Neck: trachea midline, no thyromegaly Respiratory: normal respiratory effort, lungs clear to auscultation Cardiovascular: Rate/Rhythm: regular rate and + irregularly irregular Heart Sounds: no murmur Extremities: normal capillary refill and + pedal edema; no calf tenderness Gastrointestinal (Abdomen): normal bowel sounds, soft, nontender, no hepatosplenomegaly Skin: foul smelling discharge with unstageable heel ulcers approximately 7cm in size b/l right > left with bleeding and eschar formation Neurologic: moves all extremities and awake; not confused Psychiatric: A+Ox3, euthymic affect Results & Data Results & Data Vital Signs (Past 12 Hours) Vital Signs Temp Pulse Resp BP Pulse Ox O2 Del Method 02/17/23 16:11 36.5 C 93 H 18 87/53 L 96 Room Air Laboratory Results Abnormal lab results 02/17/23 Range/Units 17:03 WBC 11.42 H (4.8-10.8) K/ul RBC 4.15 L (4.70-6.10) M/uL Hgb 12.7 L (14.0-18.0) g/dl Hct 40.4 L (42.0-52.0) % MCHC 31.4 L (32.0-36.0) g/dL RDW Std Deviation 48.4 H (36.4-46.3) fL Neut # (Auto) 9.54 H (1.40-6.50) K/uL Lymph # (Auto) 0.83 L (1.20-3.40) K/uL [place] # (Auto) 0.92 H (0.11-0.59) K/uL Chloride 95 L (98-107) mmol/L Carbon Dioxide 33 H (21-32) mmol/L Creatinine 3.65 H (0.6-1.4) mg/dl BUN/Creatinine Ratio 5.5 L (10-20) Glucose 192 H (70-99(Fasting)) mg/dl Lactate 4.2 H* (0.4-2.0) mmol/L Alkaline Phosphatase 162 H (34-104) U/L Procalcitonin 0.65 H (0-0.5) ng/ml Diagnostic Findings XR calcaneus LT min 2V, XR calcaneus RT min 2V CLINICAL HISTORY: wound TECHNIQUE: 2 views of the bilateral calcaneus were obtained. Comparison: None available at the time of this dictation. FINDINGS: No fractures are present. The alignment is anatomic. The joint spaces are well preserved. Vascular calcifications are seen. IMPRESSION: No evidence of acute bony injury. Medications Administered ER Medications Given: Normal saline 500ml bolus Normal saline 250ml bolus Zosyn 4.5g IV Vancomycin 2000mg IV ECG Additional Comments: Ordered but not yet performed Code Status & VTE Plan Code Status Full VTE Prophylaxis Plan VTE Prophylaxis will be ordered: Yes PG Care Time/CCT Total # of Minutes Spent Total Time Spent with Patient: Total time spent is greater than 50% in coordination of care (as documented) at patient's floor/unit and/or counseling patient: Coding Level of Care Code 05519 INT INP/OBS CARE 3/75MIN Diagnoses Sepsis A41.9 Unstageable pressure ulcer of right heel L89.610 Unstageable pressure ulcer of left heel L89.620 Left arm weakness R29.898 End stage renal disease N18.6 Type 2 diabetes mellitus with complications E11.8 Atrial fibrillation, permanent I48.21
[2023-02-17] MEDS: APIXABAN 5 MG TABLET PO SCH (22:05)
[2023-02-17] MEDS: ATORVASTATIN 10 MG TAB PO SCH (22:12)
--- OUTSIDE RECORDS SUMMARY | 2023-02-17 23:47 | External Medical Summary | Continuity of Care Document ---
Author Name Unknown Organization 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 0 E [facility] 207 [facility] [address] [facility], [facility] 207 [place], [place] [address] [phone] Encounter Diagnosis Body mass index [BMI] 34.0-34.9, adult(Discharge Diagnosis) - 10/07/22 ESRD on dialysis(Discharge Diagnosis) - 10/07/22 Orthostatic hypotension(Discharge Diagnosis) - 10/07/22 Discharge Disposition: Home or Self Care Attending Physician: MD Judy, Mayra Viramontes Allergies, Adverse Reactions, Alerts Substance Reaction Severity Status Norvasc Flu-like symptoms Active Assessment and Plan Extracted from: Title:Office Visit Note Author:DO Donovan Clair e S Date:10/07/22 1.ESRD on dialysis Chronic condition, stable Goal:decrease number of falls post-dialysis _ Data:external notes including: _dialysis reports/labs Plan: Discussed that the motion of looking up to close the trunk with bending on neck could make lightheadedness/dizziness worse. Discussed putting walker in the trunk of the car. Declined further PT. Could consider f/u with cardiology to go over medications. F/u in 3 months. 2.Orthostatic hypotension As per above Immunizations Given and Recorded Vaccine Date Status Refusal Reason pneumococcal 23-valent vaccine 10/27/17 Given influenza virus vaccine, inactivated 1 12/29/16 Re corded 1Result Comment: 2018-04-06: Historical information-source unspecified Medications atorvastatin 10 mg oral tablet Start: 05/30/22 16:43:00 EST, 1 tab, PO, Daily, Disp# 90 tab, Refills: 1, Pharmacy: [id number] Start Date: 05/30/22 Status: Ordered Eliquis 5 mg oral tablet Start: 11/02/21 19:54:00 EDT, 1 tab, PO, bid Start Date: 11/02/21 Status: Ordered fludrocortisone 0.1 mg oral tablet Start: 02/28/22 10:42:00 EST, 1 tab, PO, Daily Start Date: 02/28/22 Status: Ordered folic acid 1 mg oral tablet Start: 02/28/22 15:12:00 EST, 2 tab, PO, Daily, Disp# 180 tab, Refills: 3, Pharmacy: [id number] Start Date: 02/28/22 Stop Date: 02/23/23 Status: Ordered Plavix 75 mg oral tablet Start: 02/28/22 15:12:00 EST, 1 tab, PO, Daily, Disp# 90 tab, Refills: 3, Pharmacy: [id number] Start Date: 02/28/22 Stop Date: 02/23/23 Status: Ordered ProRenal Vital oral tablet TAKE 1 TABLET BY MOUTH EVERY DAY Start Date: 11/13/21 Status: Ordered sevelamer carbonate 800 mg oral tablet Start: 11/28/21 14:57:00 EDT, 1 tab, PO, tid Start Date: 11/28/21 Status: Ordered Mental Status 10/07/22 Barriers to Learning one year None evide nt Mandatory Health Literacy Documentation Yes Health Literacy Communication Barriers N ever Primary Language Swedish Problem List Condition Confirmation Course Effective Dates Status Health Status Informant Anemia Confirmed Active Atrial fibrillation Confirmed Active E Coli Bacteremia Confirmed Active Benign hypertension with CKD (chronic kidney disease) stage IV Confirmed Active Weight disorder Confirmed Active Diabetes Confirmed Active Dysphagia Confirmed Active Emphysematous pyelitis Confirmed Active ESRD on dialysis Confirmed Active S/P ORIF (open reduction internal fixation) fracture Confirmed Active History of ischemic left PORTILLO stroke Confirmed Active Hyperhomocystinemia Confirmed Active Hypercholesteremia Confirmed Active HTN (hypertension) Confirmed Active Hyponatremia Confirmed Active Colitis Confirmed Active Orthostatic hypotension Confirmed Active Peripheral neuropathy Confirmed Active Prerenal azotemia Confirmed Active Vitamin D deficiency Confirmed Active Diagnosis Diagnosis Type Effective Dates Health Status Clinical Service Informant Body mass index [BMI] 34.0-34.9, adult Discharge Diagnosis 10/07/22 Non-Specified ESRD on dialysis Discharge Diagnosis 10/07/22 Orthostatic hypotension Discharge Diagnosis 10/07/22 Procedures Procedure Date Related Diagnosis Body Site Status Left forearm fistulogram w/o intervention 01/26/21 Completed ORIF - Open reduction and in ternal fixation of fracture 1 10/18/20 Completed Left distal forearm avf creation 05/01/16 Completed 1L forearm Vital Signs Most recent to oldest [Reference Range]: 1 Height 180.34 cm (10/07/22 1:42 PM) Patient Weight 111.9 kg (10/07/22 1:42 PM) Body Mass Index 34.41 kg/m2 (10/07/22 1:42 PM) Temperature [36.5-37.9 DegC] 37.1 DegC (10/07/22 1:42 PM) Heart Rate 74 bpm (10/07/22 1:42 PM) Blood Pressure 136/72mmHg (10/07/22 1:42 PM) Cuff Pulse Pressure 64 mmHg (10/07/22 1:42 PM) BP Location # 1 Left Arm (10/07/22 1:42 PM) Social History Social History Type Response Smoking Status Never smoked cigaret brian Sex Male Implantable Device List Procedure Provider Procedure Date Device Type Site Unknown Unknown 10/18/20 Unknown Unknown Device Identifier Serial Number Lot or Batch Number Manufacturing Date Expiration Date Distinct Identification Code MRI Safety Implantable Status Assigning Authority Unknown Unknown na Unknown Unknown Unknown Unknown Active Unkn own Unknown Unknown na Unknown Unknown Unknown Unknown Active Unkn own Unknown Unknown na Unknown Unknown Unknown Unknown Active Unkn own Unknown Unknown na Unknown Unknown Unknown Unknown Active Unkn own Unknown Unknown na Unknown Unknown Unknown Unknown Active Unkn own FCM Outpt Note * MD Judy, Mayra Viramontes: MODIFY MD Kim Amy L: MODIFY Event Display: FCM Outpt Note Authored Date: [id number] Chief Complaint Patient is here for a 5 month follow up, no concerns. Per his daughter he does seem stiff because he doesnt move around much. History of Present Illness 72 year old with a past medical history of atrial fibrillation on anticoagulation, Stage 4 CKD on dialysis, DM, HTN, HLD, CVA 10/2022, carotid artery stenosis s/p left carotid endarterectomy. He follows with both cardiology, nephrology, neurology presenting for f/u. - drives himself to and from dialysis - has had issues with orthostasis, especially after dialysis in the past - was started on fludrocortisone by cardiology, with mild improvement - 2 recent falls post dialysis. Both occurred when he went to close the truck of his car after putting his walker in - he has mentioned to his nephrology and they do take his blood pressure to ensure that it is stable before he leaves dialysis - Did PT for a number of months after his stroke, not currently in PT - Daughter also mentions concerns about wax build up in ears Review of Systems As per above Physical Exam Vitals & Measurements T:37.1C HR:74(Monitored) BP:136/72 SpO2:94% HT:180.34cm WT:111.9kg WT:111.900kg(Dosing) BMI:34.41 General:Well-developed, well-nourished patient, in no acute distress, pleasant and normal affect, intact memory. Eyes:No scleral injection or discharge. ENT:Moist mucous membranes.Tympanic membranes are clear bilaterally. Lungs:Clear to auscultation bilaterally with good effort. Cardiac:Regular rate and rhythm.No murmurs.No extremity edema. Neurologic:Grossly intact cranial nerves Assessment/Plan 1.ESRD on dialysis Chronic condition, stable Goal:decrease number of falls post-dialysis _ Data:external notes including: _dialysis reports/labs Plan: Discussed that the motion of looking up to close the trunk with bending on neck could make lightheadedness/dizziness worse. Discussed putting walker in the trunk of the car. Declined further PT. Could consider f/u with cardiology to go over medications. F/u in 3 months. 2.Orthostatic hypotension As per above Attestation Attestation -I discussed and evaluated this patient with Dr. Donovan. Discussed multifactorial causes contributing to her dizziness, ie orthostasis or vertebrobasilar insufficiency. The assessment and plan was developed with her and carried out at my direction. I have read and agree with hernote. Problem List/Past Medical History Ongoing Acute L frontal lobe ischemic strokes, etiology suspected large vessel atherosclerosis with symptomatic L ICA stenosis, now s/p L CEA Anemia Atrial fibrillation Benign hypertension with CKD (chronic kidney disease) stage IV Colitis Diabetes Dysphagia E Coli Bacteremia Emphysematous pyelitis ESRD on dialysis History of ischemic left PORTILLO stroke HTN (hypertension) Hypercholesteremia Hyperhomocystinemia Hyponatremia Orthostatic hypotension Peripheral neuropathy Prerenal azotemia S/P ORIF (open reduction internal fixation) fracture Vitamin D deficiency Weight disorder Historical Closed fracture of left proximal humerus Symptomatic L ICA stenosis s/p L CEA Procedure/Surgical History Left forearm fistulogram w/o intervention (01/26/2021)ORIF - Open reduction and internal fixation of fracture (10/18/2020)Left distal forearm avf creation (05/01/2016) Medications apixaban(Eliquis 5 mg oral tablet), 5 mg= 1 tab, PO, bid atorvastatin(atorvastatin 10 mg oral tablet), 10 mg= 1 tab, PO, Daily, 1 refills clopidogrel(Plavix 75 mg oral tablet), 75 mg= 1 tab, PO, Daily, 3 refills fludrocortisone(fludrocortisone 0.1 mg oral tablet), 0.1 mg= 1 tab, PO, Daily folic acid(folic acid 1 mg oral tablet), 2 mg= 2 tab, PO, Daily, 3 refills multivitamin with minerals(ProRenal Vital oral tablet) sevelamer(sevelamer carbonate 800 mg oral tablet), 800 mg= 1 tab, PO, tid Allergies NorvascFlu-like symptoms Social History Smoking Status Never smoked cigarettes Alcohol Use:Current Type:Beer Frequency:1-2 times per year Employment/School Status:Retired Exercise Times per week:3-4 times/week Home/Environment Lives with:Children Nutrition/Health Type of diet:Regular Other - No Risk Sexual Sexually active:No Substance Abuse - No Risk Tobacco Use:Never smoker Family History Cancer: Mother. Cancer of colon: Father. Health Status Family Member(s) Immunizations Vaccine Date Status pneumococcal 23-valent vaccine 10/27/2017 Given influenza virus vaccine, inactivated 12/29/2016 Recorded Comments : 2018-04-06: Historical information-source unspecified Recommendations Health Maintenance Pending(in the next year) OverDue Diabetic Eye Exam due04/30/18and every 1year Due Adult Influenza Vaccine due09/28/22and every 1year Adult COVID-19 Vaccination due10/07/22Unknown Frequency Adult Tdap/Td Vaccine due10/07/22Unknown Frequency Colorectal Cancer Screening due10/07/22Unknown Frequency Falls Plan of Care due10/07/22Unknown Frequency Shingles Vaccine due10/07/22One-time only Due In Future Diabetes Management A1c not due until11/03/22and every 1year Medicare Annual Wellness Visit not due until06/02/23and every 1year Body Mass Index not due until10/07/23and every 1year Satisfied(in the past 1 year) Satisfied Body Mass Index on10/07/22.Satisfied by MANJULA Dodson Courtney Diabetes Management A1c on11/03/21.Satisfied by Contributor_system, [id number] Lipid Screening on05/22/22.Satisfied by Contributor_system, [email or web address] Medicare Annual Wellness Visit on06/01/22.Satisfied by SYSTEM Electronic Signature on File Electronically Reviewed/Signed by: Tamiko Donovan DO Author Signature Dt/Tm:10/07/2022 08:28 PM Resident Department of Family Medicine Electronically Reviewed/Signed by: Mayra Kim MD Cosigner Signature Dt/Tm: 10/08/2022 07:12 PM Promotions Intern [facility] [address] [address] CSN Patient Care team information Care Team Personnel Name: MD Jp, Rickey Pfeiffer Position: Physician - Family Med Member Role: Lifetime Relationship Address: Address: [address] [place] [id number] [place] Name: Jennifer Tomlinson Sarah Position: Pharmacist Member Role: Pharmacy - Lifetime Address: Address: [address] [address] [place] Name: TESSA Ospina Lynn Position: Physician Water Service Supervisor Exempt - Vasc Surg Member Role: Lifetime Relationship Address: Address: [address] [place] [address] [place] Name: DO Donovan Claire S Position: Resident Member Role: Primary Care Provider Address: Address: [address] [place] [address] [place] Name: MD Edmonds Eugene J Position: Physician - Vascular Surg Member Role: Lifetime Relationship Address: Address: [address] [place] [address] [place] Name: Jennifer Denny Kyle Position: Pharmacist Member Role: Pharmacy - Lifetime Address: Address: [address] [place] [address] Care Team Related Persons Name: NORBERT JUNIOR Gilbert Address: [address], [id number]
--- NOTE | 2023-02-17 23:57 | XRay Report ---
SINGLE VIEW CHEST CLINICAL HISTORY: Sepsis. FINDINGS: An AP, portable, upright chest radiograph is compared to study dated 12/17/2022 and correlat ed with chest CT dated 322. The heart is enlarged noting atherosclerotic calcification of the thoraci c aorta. The pulmonary vasculature is noncongested. Chronic interstitial thickening is similar to pre vious. There is bibasilar scarring/atelectasis. No airspace consolidation or large pleural effusion i s identified. No pneumothorax is seen. The skeletal structures are osteopenic. The bony thorax is bahinav ssly intact. A stent projects over the left apex. IMPRESSION: Cardiomegaly with no acute cardiopulmonary abnormality. ACT 112: Negative or not required by law. Electronically signed by: Federico Basilio M.D. 02/17/2023 11:56 PM
[2023-02-18] MEDS ORDERED: HYDROmorphone INJ 0.5 MG/0.5 ML SYR IV PRN ×2 (00:21)
--- NOTE | 2023-02-18 00:38 | Magnetic Resonance Report ---
Exam(s): MRI RIGHT ANKLE Without Contrast EXAM: MR Right Lower Extremity Without Intravenous Contrast, Ankle CLINICAL HISTORY: Reason for exam: heel ulcer ?underlying osteomyelitis. TECHNIQUE: Multiplanar magnetic resonance images of the right ankle without intravenous contrast. COMPARISON: No relevant prior studies available. FINDINGS: There is an ulcer at the heel. Marrow signal abnormality within the posterior lateral aspect of the calcaneus (series 4 and 5 images 27 out of 38. This appearance is consistent with reactive osteitis and concerning for early osteomyelitis as there is loss of the normal cortex at this location. The Achilles tendon is intact. No evidence of tenosynovitis. Remainder of the tendons are unremarkable. There is diffuse subcutaneous soft tissue edema and skin thickening suggestive of cellulitis. No abscess. No soft tissue gas. No joint effusion or evidence of septic arthritis. Remainder the bones are normal in appearance. No acute ligamentous abnormality. Plantar fascia, sinus Tarsi, and tarsal tunnel are unremarkable. IMPRESSION: Marrow signal abnormality within the posterior lateral calcaneus consistent with reactive osteitis and concerning for early osteomyelitis. Electronically signed by: Fabian Fu MD 02/18/23 00:37 AM
--- NOTE | 2023-02-18 00:44 | Ultrasound Report ---
Exam(s): US ARTERIAL BILATERAL LOWER EXTREMITIES EXAM: US Duplex Bilateral Lower Extremities Arteries CLINICAL HISTORY: Reason for exam: b/l diabetic heel ulcers. TECHNIQUE: Real-time duplex ultrasound scan of the bilateral lower extremity arteries integrating B-mode two-dimensional vascular structure, Doppler spectral analysis and color flow Doppler imaging. COMPARISON: No relevant prior studies available. FINDINGS: Atheromatous disease throughout the lower extremities bilaterally. Right common femoral artery: 68 cm/s. Biphasic. Right superficial femoral artery: 68 cm/s. Biphasic. Right popliteal artery: 74 cm/s. Biphasic. Right calf/foot arteries: Partially obscured by bandage. UTILIZATION COORDINATOR 180 cm/s. Biphasic. Dorsalis pedis 14 cm/s. Biphasic. Peroneal 31 cm/s. Biphasic. Anterior tibial artery 36 cm/s. Biphasic. Left common femoral artery: 74 cm/s. Biphasic. Left superficial femoral artery: 63 cm/s. Biphasic. Left popliteal artery: 45 cm/s. Biphasic. Left calf/foot arteries: UTILIZATION COORDINATOR 80 cm/s. Biphasic. Dorsalis pedis 92 cm/s. Biphasic. No detectable flow within the peroneal artery. NEVILLE 73 cm/s. Biphasic. Soft tissues: Unremarkable. IMPRESSION: 1. No arterial occlusion within the right lower extremity. Diminished waveforms throughout the right lower extremity. 50-74% stenosis within the posterior tibial artery. Diminished velocities within the dorsalis pedis. 2. Absent flow within the peroneal artery. Otherwise no focal flow limiting stenosis. Flow present within the anterior tibial artery and posterior tibial arteries. Diminished waveforms throughout the left lower extremity. Electronically signed by: Fabian Fu MD 02/18/23 00:43 AM
[2023-02-18 05:10] LABS: Basophils # (auto) 0.04 K/uL (0.00-0.20); Basophils % (auto) 0.4 %; Eosinophils # (auto) 0.06 K/uL (0.00-0.50); Eosinophils % (auto) 0.7 %; Hematocrit (blood only) 33.8 % (42.0-52.0); Immature Granulocytes # (auto) 0.07 K/uL (0.01-0.20); Immature Granulocytes % (auto) 0.8 %; Lymphocytes # (auto) 1.18 K/uL (1.20-3.40); Mean Corpuscular Hemoglobin 31.1 pg (25.0-34.0); Mean Corpuscular Hgb Conc 32.5 g/dL (32.0-36.0); Mean Corpuscular Volume 95.5 fL (80.0-100.0); Monocytes # (auto) 1.08 K/uL (0.11-0.59); Monocytes % (auto) 11.9 %; Neutrophils # (auto) 6.63 K/uL (1.40-6.50); Neutrophils % (auto) 73.2 %; Platelet Count 222 K/uL (130-400); RDW Coefficient of Variation 13.6 % (11.5-14.5); RDW Standard Deviation 47.5 fL (36.4-46.3); Red Blood Count 3.54 M/uL (4.70-6.10); White Blood Count 9.06 K/ul (4.8-10.8)
[2023-02-18 05:28] LABS: Albumin Level 2.9 gm/dl (3.4-5.0); Bilirubin,Total 0.6 mg/dl (0.2-1.0); Calcium 8.7 mg/dl (8.6-10.3); Potassium 4.1 mmol/L (3.5-5.1)
[2023-02-18 05:34] LABS: BUN Creatinine Ratio 6.2 (10-20); Creatinine Clr Calc Pharmacy 18.7 ml/min; Est GFR (African American) 15.3 ml/min; Est GFR (Non-African American) 13.2 ml/min; Total Protein 5.9 gm/dl (6.0-8.3)
--- NOTE | 2023-02-18 06:11 | Orthopedic Consultation ---
Date of Consultation February 18, 2023 Assessment & Plan (1) Unstageable pressure ulcer of right heel: Patient seen at bedside in [facility] ED room B10. Bilateral malodorous full thickness heel wounds noted. MRI Right ankle images and results reviewed concerning for osteomyelitis. Patient scheduled for OR debridement of B/L heel wounds 02/18/23. (2) Unstageable pressure ulcer of left heel: (3) Nonhealing wound of heel: (4) Sepsis: History of Present Illness Attending Physician: Rickey Moran MD History of Present Illness Patient is a 72-year-old male seen at [facility] ED POD B room B10 for bilateral heel wounds. Patient has a past medical history significant for type II diabetes, Carotid arterial disease, Acute ischemic stroke, orthostatic hypotension, Afib, ESRD, Hyperlipidemia, Hypertension. Patient presented to [facility] ED with family last evening 02/17/23 for weakness and chills per family. Patient ambulates but does have difficulty walking since a prior stroke. Patient is a diabetic and does have chronic kidney disease and is on dialysis. Allergies Allergy/AdvReac Type Severity Reaction Status Date / Time amlodipine AdvReac Severe FLU Verified 01/08/23 22:00 [facility] Home Medications Medication Instructions Recorded Confirmed Type lidocaine-prilocaine 2.5 %-2.5 % 1 applic topical DIRECTED 08/17/20 02/17/23 History topical cream vit B complx, C-iron 8 mg-folic 1 tab PO DAILY 08/17/20 02/17/23 History acid 800 mcg-D3 1,000 unit-zinc tablet (ProRenal) clopidogrel 75 mg tablet 75 mg PO DAILY 02/13/22 02/17/23 History folic acid 1 mg tablet 2 mg PO DAILY 02/13/22 02/17/23 History sevelamer carbonate 800 mg tablet 800 mg PO TID 02/13/22 02/17/23 History apixaban 5 mg tablet (Eliquis) 5 mg PO BID #60 tabs 08/12/22 02/17/23 Rx fludrocortisone 0.1 mg tablet 0.1 mg PO DAILY #90 tabs 11/08/22 02/17/23 Rx acetaminophen 650 mg 1,300 mg PO DAILY PRN Pain 12/17/22 02/17/23 History tablet,extended release atorvastatin 10 mg tablet 10 mg PO HS 02/17/23 02/17/23 History midodrine 5 mg tablet 5 mg PO TID PRN low BP 02/17/23 02/17/23 History Patient History Medical History Carotid arterial disease Acute ischemic stroke Orthostatic hypotension Atrial fibrillation, permanent Fistula left arm Diabetes type 2, controlled ESRD (end stage renal disease) on dialysis Hyperlipidemia Hypertension Presence of arteriovenous fistula for hemodialysis, primary Surgical History S/P carotid endarterectomy History of tooth extraction History of surgery on arm Family History Mother , age 65 of cancer -uncertain type Cancer Father , in his 50s of cancer Stomach cancer Esophagus cancer Cancer Cancer of bowel Sister Kidney stone Social History Smoking Status: Never smoker Second Hand Exposure: No; Do You Dip or Chew Tobacco: No; Hx Alcohol Use: No Hx Substance Use: No Preferred Language: Polish Communication Ability: Effective Front Desk Receptionist Required: No Beliefs That Will Affect Care: None marital status: Current Living Situation: Family Current Living Situation Comment: daughter lives w/ patient current occupational status: retired current occupation: retired age 64 from [employer] Feels Safe at Home: Yes Assistive Devices: Glasses, Hospital Bed, Raised Toilet Seat, Scooter/Electric Scooter, Walker and Wheelchair Review of Systems Review of Systems: All systems reviewed & are unremarkable except as noted in HPI & below Physical Exam Constitutional: cooperative and comfortable Eyes: normal visual farfan by confrontation Neck: normal visual inspection and trachea midline Respiratory: normal respiratory effort Cardiovascular: Vessels: posterior tibial pulses present and dorsalis pedis pulses present Skin: + ulcer (Bilateral malodorous, unstageab le, moist eschar retrocalcaneal heel wounds) Neurologic: Decreased epicritic sensation bilateral lower extremities Results & Data Vital Signs (Past 12 Hours) Vital Signs Pulse Pulse Resp BP BP Pulse Ox 02/18/23 03:51 79 02/18/23 00:00 91 H 16 02/17/23 23:30 96 H 17 11/20/23 23:05 108/61 02/17/23 23:05 86 21 02/17/23 20:46 90 15 93 02/17/23 20:29 88 18 111/54 L 96 Diagnostic Findings [place], [place] [phone] Magnetic Resonance Report Patient: JENIFFER JUNIOR Admit Date: 02/17/23 MR#: [id number] Address1: [address] [facility] Acct ID:[id number] Address2: Date: [address] [facility] Zip: [place] [address] Age: 72 Location: [facility] Sex: M Room/Bed: [facility] 1-16 Att Phy: Rickey Moran MD Diagnosis: SEPSIS, B/L HEEL ULCERS Areli Phy: Tamiko Donovan DO Service Date: 02/17/23 Fam Phy: Interpreting Phy: Fabian Fu MDAdmit Phy: Rickey Moran MD Ordering Phy: Rickey Moran MD cc: ~ Exam(s): MRI RIGHT ANKLE Without Contrast EXAM: MR Right Lower Extremity Without Intravenous Contrast, Ankle CLINICAL HISTORY: Reason for exam: heel ulcer ?underlying osteomyelitis. TECHNIQUE: Multiplanar magnetic resonance images of the right ankle without intravenous contrast. COMPARISON: No relevant prior studies available. FINDINGS: There is an ulcer at the heel. Marrow signal abnormality within the posterior lateral aspect of the calcaneus (series 4 and 5 images 27 out of 38. This appearance is consistent with reactive osteitis and concerning for early osteomyelitis as there is loss of the normal cortex at this location. The Achilles tendon is intact. No evidence of tenosynovitis. Remainder of the tendons are unremarkable. There is diffuse subcutaneous soft tissue edema and skin thickening suggestive of cellulitis. No abscess. No soft tissue gas. No joint effusion or evidence of septic arthritis. Remainder the bones are normal in appearance. No acute ligamentous abnormality. Plantar fascia, sinus Tarsi, and tarsal tunnel are unremarkable. IMPRESSION: Marrow signal abnormality within the posterior lateral calcaneus consistent with reactive osteitis and concerning for early osteomyelitis. Electronically signed by: Fabian Fu MD 02/18/23 00:37 AM Dictated: 02/18/2336 Transcribed: 02/18/2336
[2023-02-18] MEDS: MIDODRINE HCL 2.5 MG TAB PO SCH ×3 (06:32→18:43)
[2023-02-18] MEDS: PIPERACILLIN/TAZOBACTAM 4.5 GM in DEXTROSE 5% MINI-B 100 ML IV SCH ×2 (06:34→18:47)
[2023-02-18] MEDS: CLOPIDOGREL BISULFATE 75 MG TAB PO SCH (08:25)
[2023-02-18] MEDS: APIXABAN 5 MG TABLET PO SCH ×2 (08:25→22:06)
[2023-02-18] MEDS: FLUDROCORTISONE ACETATE 0.1 MG TAB PO SCH (08:25)
[2023-02-18] MEDS: NEPHROCAPS PO SCH (08:25)
[2023-02-18] MEDS: ACETAMINOPHEN 500 MG TAB PO SCH ×3 (08:26→22:06)
[2023-02-18] MEDS: SEVELAMER HCL 800 MG TABLET PO SCH ×3 (08:27→18:43)
[2023-02-18] MEDS: FOLIC ACID 1 MG TAB PO SCH (08:31)
--- NOTE | 2023-02-18 09:24 | Nephrology Consultation ---
Date of Consultation February 18, 2023 Assessment & Plan (1) End stage renal disease: ESKD due to DKD. On HD TTS schedule as outpatient. Completed full treatment yesterday based on holiday schedule. BP and volume status are acceptable. Electrolytes controlled. AVF functioning well. Next dialysis treatment will be coordinated for tomorrow. Outpatient Rx 3.5 hours, 180 optiflux, 450/800, 3K, 2.5 calcium. EDW 97 kg. Medications are appropriately dosed for kidney function. Check vanco level tomorrow prior to HD. Anticoagulated for atrial fibrillation with apixaban. Maintained on midodrine chronically for hypotension. (2) Anemia: LA therapy held with Hgb >10. Maintained on Micera as outpatient. (3) Chronic kidney disease-mineral and bone disorder: Renal diet. Continue sevelamer QAC. (4) Unstageable pressure ulcer of right heel: (5) Unstageable pressure ulcer of left heel: History of Present Illness Reason for Consultation: ESRD on dialysis Requesting Physician: Osito Pelletier Attending Physician: Osito Pelletier History of Present Illness Mr. 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 He has never had a kidney biopsy.Rey dialyzes at [facility] (TTS, 3.5hr, F-180NR, Qb450/Qd500, 3K Ca2.5 Na 137, EDW 97 kg). He has a well functioning LUE AVF which was placed by Dr. Edmonds in 2016. In December MEDICAL TECHNOLOGIST CLINICAL of AVF venous limb with stent was performed. Rey has been tolerating dialysis well. Due to the holiday schedule adjustment, he completed a full treatment yesterday without complications. Net UF 3.1 L. Records from [facility] were reviewed today. Typical UF ~1-3 L. Rey was hospitalized in October 2021 with CVA he underwent L CEA at that time. He has continued to suffer with some slurred speech and facial droop. In November, he was hospitalized with weakness and debility. He recently completed rehab at [facility] prior to returning home. Unfortunately, he continues to struggle with debility and has remained wheelchair dependent and requiring assistance of a [place] lift for transfers at dialysis. Medical history is significant for AODM, HTN, mechanical fall resulting in fracture of L radius and ulna s/p surgical repair at [facility] [place]18, COVID + 02/18, atrial fibrillation (Apixaban), BPH (Tamsulosin stopped due to orthostasis), and recent CVA (L frontal lobe), and history of emphysematous pyelonephritis. Rey presented to the ER yesterday evening with sepsis related to osteomyelitis of the heels. LE arterial duplex completed. MRI completed. Orthopedic consultation provided by Dr. Marti. He was seen and evaluated in the ER in the ER this morning. Antibiotic therapy with Zosyn and vancomycin initiated. Allergies Allergy/AdvReac Type Severity Reaction Status Date / Time amlodipine AdvReac Severe FLU Verified 01/08/23 22:00 [facility] Home Medications Medication Instructions Recorded Confirmed Type lidocaine-prilocaine 2.5 %-2.5 % 1 applic topical DIRECTED 08/17/20 02/17/23 History topical cream vit B complx, C-iron 8 mg-folic 1 tab PO DAILY 08/17/20 02/17/23 History acid 800 mcg-D3 1,000 unit-zinc tablet (ProRenal) clopidogrel 75 mg tablet 75 mg PO DAILY 02/13/22 02/17/23 History folic acid 1 mg tablet 2 mg PO DAILY 02/13/22 02/17/23 History sevelamer carbonate 800 mg tablet 800 mg PO TID 02/13/22 02/17/23 History apixaban 5 mg tablet (Eliquis) 5 mg PO BID #60 tabs 08/12/22 02/17/23 Rx fludrocortisone 0.1 mg tablet 0.1 mg PO DAILY #90 tabs 11/08/22 02/17/23 Rx acetaminophen 650 mg 1,300 mg PO DAILY PRN Pain 12/17/22 02/17/23 History tablet,extended release atorvastatin 10 mg tablet 10 mg PO HS 02/17/23 02/17/23 History midodrine 5 mg tablet 5 mg PO TID PRN low BP 02/17/23 02/17/23 History Patient History Medical History Carotid arterial disease Acute ischemic stroke Orthostatic hypotension Atrial fibrillation, permanent Fistula left arm Diabetes type 2, controlled ESRD (end stage renal disease) on dialysis Hyperlipidemia Hypertension Presence of arteriovenous fistula for hemodialysis, primary Surgical History S/P carotid endarterectomy History of tooth extraction History of surgery on arm Family History Mother , age 65 of cancer -uncertain type Cancer Father , in his 50s of cancer Stomach cancer Esophagus cancer Cancer Cancer of bowel Sister Kidney stone Social History Smoking Status: Never smoker Second Hand Exposure: No; Do You Dip or Chew Tobacco: No; Hx Alcohol Use: No Hx Substance Use: No Preferred Language: Urdu Communication Ability: Effective Performance Improvement Director Required: Yes Beliefs That Will Affect Care: None marital status: Current Living Situation: Family Current Living Situation Comment: daughter lives w/ patient current occupational status: retired current occupation: retired age 64 from [employer] Feels Safe at Home: Yes Assistive Devices: Glasses, Hospital Bed, Raised Toilet Seat, Scooter/Electric Scooter, Walker and Wheelchair Review of Systems Review of Systems: All systems reviewed & are unremarkable except as noted in HPI & below Physical Exam Constitutional: well developed and + morbidly obese; no acute distress Eyes: no scleral abnormality and no corneal abnormality ENMT: Mouth: no oral mucosal abnormality and oral mucous membranes not dry Neck: normal visual inspection and trachea midline Respiratory: normal respiratory effort Auscultation: lungs clear to auscultation bilaterally Cardiovascular: Rate/Rhythm: regular rate Heart Sounds: normal S1 and normal S2 Extremities: + pedal edema and + AV fistula Musculoskeletal: Extremities: no cyanosis and no clubbing Skin: normal turgor; no lesions Neurologic: Motor/Sensory: no tremor and no asterixis Psychiatric: Orientation: alert and oriented x 3 Results & Data Vital Signs (Past 12 Hours) Vital Signs Pulse Resp BP 02/18/23 08:25 123/80 02/18/23 08:25 83 20 02/18/23 08:00 81 16 02/18/23 07:03 87 02/18/23 07:00 90 19 02/18/23 06:31 82 19 116/79 02/18/23 06:30 83 25 H 02/18/23 06:00 76 24 02/18/23 05:30 64 32 H 02/18/23 05:00 79 18 02/18/23 04:30 78 19 02/18/23 04:00 81 19 02/18/23 03:51 79 02/18/23 03:30 92 H 16 02/18/23 03:00 86 28 H 02/18/23 02:30 82 21 02/18/23 02:00 77 19 02/18/23 01:30 88 15 02/18/23 01:00 87 16 02/18/23 00:30 90 17 02/18/23 00:00 91 H 16 02/17/23 23:30 96 H 17 02/17/23 23:05 108/61 02/17/23 23:05 86 21 Laboratory Results Laboratory Results - last 24 hr 02/17/23 02/17/23 02/18/23 17:03 19:17 04:44 WBC 11.42 H 9.06 RBC 4.15 L 3.54 L Hgb 12.7 L 11.0 L Hct 40.4 L 33.8 L MCV 97.3 95.5 MCH 30.6 31.1 MCHC 31.4 L 32.5 RDW Std Deviation 48.4 H 47.5 H RDW Coeff of Mukul 13.5 13.6 Plt Count 278 222 MPV 10.1 10.0 Immature Gran % (Auto) 0.8 0.8 Neut % (Auto) 83.4 73.2 Lymph % (Auto) 7.3 13.0 [place] % (Auto) 8.1 11.9 Eos % (Auto) 0.1 0.7 Baso % (Auto) 0.3 0.4 Neut # (Auto) 9.54 H 6.63 H Lymph # (Auto) 0.83 L 1.18 L [place] # (Auto) 0.92 H 1.08 H Eos # (Auto) 0.01 0.06 Baso # (Auto) 0.03 0.04 Immature Gran # (Auto) 0.09 0.07 Sodium 139 139 Potassium 4.5 4.1 Chloride 95 L 100 Carbon Dioxide 33 H 32 Anion Gap 11 7 BUN 20 26 H Creatinine 3.65 H 4.21 H D Est Cr Clr Drug Dosing 21.6 18.7 Est GFR ( Amer) 18.1 15.3 Est GFR (Non-Af Amer) 15.6 13.2 BUN/Creatinine Ratio 5.5 L 6.2 L Glucose 192 H 128 H Lactate 4.2 H* 2.5 H* Calcium 9.4 8.7 Total Bilirubin 0.7 0.6 AST 22 20 ALT 12 10 Alkaline Phosphatase 162 H 130 H Total Protein 7.2 5.9 L Albumin 3.5 2.9 L Globulin 3.7 3.0 Albumin/Globulin Ratio 0.9 1.0 Procalcitonin 0.65 H Cortisol AM Sample 24.16 H Random Vancomycin 21.1 H Diagnostic Findings SINGLE VIEW CHEST FINDINGS: An AP, portable, upright chest radiograph is compared to study dated 12/17/2022 and correlated with chest CT dated 322. The heart is enlarged noting atherosclerotic calcification of the thoracic aorta. The pulmonary vasculature is noncongested. Chronic interstitial thickening is similar to previous. There is bibasilar scarring/atelectasis. No airspace consolidation or large pleural effusion is identified. No pneumothorax is seen. The skeletal structures are o steopenic. The bony thorax is grossly intact. A stent projects over the left apex. IMPRESSION: Cardiomegaly with no acute cardiopulmonary abnormality. US ARTERIAL BILATERAL LOWER EXTREMITIES FINDINGS: Atheromatous disease throughout the lower extremities bilaterally. Right common femoral artery: 68 cm/s. Biphasic. Right superficial femoral artery: 68 cm/s. Biphasic. Right popliteal artery: 74 cm/s. Biphasic. Right calf/foot arteries: Partially obscured by bandage. MEDICAL TECHNOLOGIST CLINICAL 180 cm/s. Biphasic. Dorsalis pedis 14 cm/s. Biphasic. Peroneal 31 cm/s. Biphasic. Anterior tibial artery 36 cm/s. Biphasic. Left common femoral artery: 74 cm/s. Biphasic. Left superficial femoral artery: 63 cm/s. Biphasic. Left popliteal artery: 45 cm/s. Biphasic. Left calf/foot arteries: MEDICAL TECHNOLOGIST CLINICAL 80 cm/s. Biphasic. Dorsalis pedis 92 cm/s. Biphasic. No detectable flow within the peroneal artery. NEVILLE 73 cm/s. Biphasic. Soft tissues: Unremarkable. IMPRESSION: 1. No arterial occlusion within the right lower extremity. Diminished waveforms throughout the right lower extremity. 50-74% stenosis within the posterior tibial artery. Diminished velocities within the dorsalis pedis. 2. Absent flow within the peroneal artery. Otherwise no focal flow limiting stenosis. Flow present within the anterior tibial artery and posterior tibial arteries. Diminished waveforms throughout the left lower extremity. MR Right Lower Extremity Without Intravenous Contrast, Ankle FINDINGS: There is an ulcer at the heel. Marrow signal abnormality within the posterior lateral aspect of the calcaneus (series 4 and 5 images 27 out of 38. This appearance is consistent with reactive osteitis and concerning for early osteomyelitis as there is loss of the normal cortex at this location. The Achilles tendon is intact. No evidence of tenosynovitis. Remainder of the tendons are unremarkable. There is diffuse subcutaneous soft tissue edema and skin thickening suggestive of cellulitis. No abscess. No soft tissue gas. No joint effusion or evidence of septic arthritis. Remainder the bones are normal in appearance. No acute ligamentous abnormality. Plantar fascia, sinus Tarsi, and tarsal tunnel are unremarkable. IMPRESSION: Marrow signal abnormality within the posterior lateral calcaneus consistent with reactive osteitis and concerning for early osteomyelitis. PG Care Time/CCT Total # of Minutes Spent Total Time Spent with Patient: Total time spent is greater than 50% in coordination of care (as documented) at patient's floor/unit and/or counseling patient: Coding Level of Care Code 99281 IN/OBS CONSULT LVL 4,60M Diagnoses End stage renal disease N18.6 Anemia D64.9 Chronic kidney disease-mineral and bone disorder N18.9; E83.9; M89.9 Unstageable pressure ulcer of right heel L89.610 Unstageable pressure ulcer of left heel L89.620
--- NOTE | 2023-02-18 15:19 | Anesthesiology Consultation ---
Date of Service February 18, 2023 Assessment & Plan (1) Encounter for pre-operative examination: Chart Review Chart Review: Acceptable Risk for Surgery History Surgery Operation Date: 02/18/23 09:30 Proposed Procedures p Bilateral Heel Debridement - Sorin Marti DPM, MS Height/Weight Height: 5 ft 11 in Weight: 95.7 kg Allergies Allergy/AdvReac Type Severity Reaction Status Date / Time amlodipine AdvReac Severe FLU Verified 01/08/23 22:00 [facility] Medications Home Medications Medication Instructions Recorded Confirmed Last Taken lidocaine-prilocaine 2.5 %-2.5 % 1 applic topical DIRECTED 08/17/20 02/17/23 02/17/23 topical cream vit B complx, C-iron 8 mg-folic 1 tab PO DAILY 08/17/20 02/17/23 02/17/23 acid 800 mcg-D3 1,000 unit-zinc tablet (ProRenal) clopidogrel 75 mg tablet 75 mg PO DAILY 02/13/22 02/17/23 02/17/23 folic acid 1 mg tablet 2 mg PO DAILY 02/13/22 02/17/23 02/17/23 sevelamer carbonate 800 mg tablet 800 mg PO TID 02/13/22 02/17/23 02/16/23 apixaban 5 mg tablet (Eliquis) 5 mg PO BID #60 tabs 08/12/22 02/17/23 02/17/23 fludrocortisone 0.1 mg tablet 0.1 mg PO DAILY #90 tabs 11/08/22 02/17/23 02/17/23 acetaminophen 650 mg 1,300 mg PO DAILY PRN Pain 12/17/22 02/17/23 01/05/23 17:00 tablet,extended release atorvastatin 10 mg tablet 10 mg PO HS 02/17/23 02/17/23 02/16/23 midodrine 5 mg tablet 5 mg PO TID PRN low BP 02/17/23 02/17/23 02/17/23 Active Medications Generic Name Dose Route Start Last Admin Trade Name Freq PRN Reason Stop Dose Admin Acetaminophen 1,000 mg 02/18/23 09:00 02/18/23 13:57 Acetaminophen 500 Mg Tab PO 03/20/23 08:59 1,000 mg TID JENNIFER Administration Apixaban 5 mg 02/17/23 21:00 02/18/23 08:25 Apixaban 5 Mg Tablet PO 03/19/23 20:59 5 mg BID JENNIFER Administration Atorvastatin Calcium 10 mg 02/17/23 21:00 02/17/23 22:12 Atorvastatin 10 Mg Tab PO 03/19/23 20:59 Not Given HS JENNIFER Clopidogrel Bisulfate 75 mg 02/18/23 09:00 02/18/23 08:25 Clopidogrel Bisulfate 75 Mg Tab PO 03/20/23 08:59 75 mg DAILY JENNIFER Administration Fludrocortisone Acetate 0.1 mg 02/18/23 09:00 02/18/23 08:25 Fludrocortisone Acetate 0.1 Mg Tab PO 03/20/23 08:59 0.1 mg DAILY JENNIFER Administration Folic Acid 2 mg 02/18/23 09:00 02/18/23 08:31 Folic Acid 1 Mg Tab PO 03/20/23 08:59 2 mg DAILY JENNIFER Administration Piperacillin Sod/Tazobactam 100 mls @ 25 mls/hr 02/18/23 06:00 02/18/23 11:20 Sod 4.5 gm/ Dextrose IV 02/25/23 05:59 Infused Q12H JENNIFER Infusion Protocol Midodrine 5 mg 02/18/23 07:00 02/18/23 11:38 Midodrine Hcl 2.5 Mg Tab PO 03/20/23 06:59 5 mg TID@0700,1200,1700 JENNIFER Administration Sevelamer HCl 800 mg 02/18/23 08:00 02/18/23 11:38 Sevelamer Hcl 800 Mg Tablet PO 03/20/23 07:59 800 mg TIDM JENNIFER Administration Vitamin B Complex/Folic Acid 1 cap 02/18/23 09:00 02/18/23 08:25 Nephrocaps PO 03/20/23 08:59 1 cap DAILY JENNIFER Administration Past Medical History Medical History (Updated 02/18/23 @ 15:19 by Allen Perez MD) CVA (cerebral vascular accident) End stage renal disease Carotid arterial disease Orthostatic hypotension Atrial fibrillation, permanent Fistula left arm Diabetes type 2, controlled ESRD (end stage renal disease) on dialysis Hyperlipidemia Hypertension Presence of arteriovenous fistula for hemodialysis, primary Past Family History Family History Mother , age 65 of cancer -uncertain type Cancer Father , in his 50s of cancer Stomach cancer Esophagus cancer Cancer Cancer of bowel Sister Kidney stone Past Surgical History Surgical History S/P carotid endarterectomy History of tooth extraction History of surgery on arm Social History Smoking Status: Never smoker Do You Dip or Chew Tobacco: No Hx Alcohol Use: No Alcohol type: beer Hx Substance Use: No substance use type: does not use Physical Exam Vital Signs Last Vital Signs Temp 36.5 C 02/17/23 16:11 Pulse 80 02/18/23 11:38 Resp 20 02/18/23 11:38 BP 136/80 02/18/23 11:38 Pulse Ox 94 02/18/23 11:38 O2 Del Method Room Air 02/18/23 11:38 Testing Laboratory Results 02/18/23 04:44 02/18/23 04:44 02/17/23 17:03 Gram Stain - Final Foot,Right Wound Culture - Preliminary Moderate counts mixed probable skin microbiota. Electrocardiogram Date: 02/18/23 Findings: + AFIB @ (79) and + poor R wave progression Echocardiogram Date: 12/17/22 EF: 65-70% Valvular Disease: + MR (moderate) moderate TR elevated RV systolic pressure
[2023-02-18] MEDS ORDERED: PROPOFOL IV EMULSION 10 MG/ML 20 ML VIAL IV ONE (15:22)
[2023-02-18] MEDS ORDERED: MIDAZOLAM HCL 1 MG/ML 2ML VIAL ONE (15:23)
[2023-02-18] MEDS ORDERED: LIDOCAINE 2%/EPINEPHRINE 1:200,000 20 ML PF ONE (15:23)
[2023-02-18] MEDS ORDERED: fentaNYL citrate PF 100 MCG/2 ML VIAL ONE (15:23)
[2023-02-18] MEDS ORDERED: ATROPINE SULFATE 0.1 MG/ML 10ML SYR IV PRN (15:50)
[2023-02-18] MEDS ORDERED: LABETALOL HCL IV 5 MG/ML 20ML IV PRN (15:50)
[2023-02-18] MEDS ORDERED: ONDANSETRON INJ 2 MG/ML 2 ML VIAL IV PRN (15:50)
[2023-02-18] MEDS ORDERED: fentaNYL citrate PF 100 MCG/2 ML VIAL IV PRN (15:50)
[2023-02-18] MEDS ORDERED: BUPIVACAINE 0.5 % 5 MG/1 ML MPF 30ML VIAL ONE (15:53)
--- NOTE | 2023-02-18 15:55 | History & Physical Bridge Note ---
Date of Service February 18, 2023 History & Physical Bridge Note I have examined the patient, reviewed the History & Physical and in the interval since the performance of the History & Physical I have noted the following changes of clinical significance: no changes noted
[2023-02-18] MEDS ORDERED: KETAMINE HCL 10MG/ML SYR ONE (16:43)
--- NOTE | 2023-02-18 16:57 | Post Operative Brief Note ---
Immediate Post Op Note v1 Date of Surgery February 18, 2023 Pre & Post Diagnosis Operation Date: 02/18/23 09:30 Pre-Op Diagnosis: Bilateral heal wound Post-Op Diagnosis: Bilateral heal wound I identified the patient and participated in the time-out.: Yes Procedure Operation Date: 02/18/23 09:30 Actual Procedures p Bilateral Heel Debridement - Sorin Marti DPM, MS Surgeon Sorin Marti DPM, MS Manager Management none Estimated Blood Loss 5 Findings Consistent with Post-Op Diagnosis Bilateral necrotic retrocalcaneal heel wounds Specimens Right heel wound culture DEEP Left heel wound culture DEEP
--- NOTE | 2023-02-18 17:59 | Anesthesiology Progress Note ---
Date of Service February 18, 2023 Anesthesia Post Procedure Vital Signs Vital Signs: Temp Pulse Pulse Pulse Resp BP BP 02/18/23 17:35 76 14 130/68 02/18/23 17:20 36.3 C L 80 16 124/66 02/18/23 17:10 86 16 120/70 02/18/23 16:58 36 C L 77 11 L 130/68 02/18/23 15:48 98 H 20 141/86 H 02/18/23 15:45 36.9 C 93 H 16 169/78 H 02/18/23 11:38 80 20 136/80 02/18/23 11:00 02/18/23 10:00 85 16 02/18/23 09:00 96 H 17 02/18/23 08:25 123/80 02/18/23 08:25 83 20 02/18/23 08:00 81 16 02/18/23 07:03 87 02/18/23 07:00 90 19 02/18/23 06:31 82 19 116/79 02/18/23 06:30 83 25 H 02/18/23 06:00 76 24 02/18/23 05:30 64 32 H 02/18/23 05:00 79 18 02/18/23 04:30 78 19 02/18/23 04:00 81 19 02/18/23 03:51 79 02/18/23 03:30 92 H 16 02/18/23 03:00 86 28 H 02/18/23 02:30 82 21 02/18/23 02:00 77 19 02/18/23 01:30 88 15 02/18/23 01:00 87 16 02/18/23 00:30 90 17 02/18/23 00:00 91 H 16 02/17/23 23:30 96 H 17 02/17/23 23:05 108/61 02/17/23 23:05 86 21 02/17/23 20:46 90 15 02/17/23 20:29 88 18 111/54 L Pulse Ox Pulse Ox O2 Del Method O2 Del Method O2 Flow Rate 02/18/23 17:35 96 Room Air 02/18/23 17:20 95 Room Air 02/18/23 17:10 99 Oxymask 4 02/18/23 16:58 100 Oxymask 6 02/18/23 15:48 94 Room Air 02/18/23 15:45 95 Room Air 02/18/23 11:38 94 Room Air 02/18/23 11:00 94 Room Air 02/18/23 10:00 02/18/23 09:00 02/18/23 08:25 02/18/23 08:25 02/18/23 08:00 02/18/23 07:03 02/18/23 07:00 02/18/23 06:31 02/18/23 06:30 02/18/23 06:00 02/18/23 05:30 02/18/23 05:00 02/18/23 04:30 02/18/23 04:00 02/18/23 03:51 02/18/23 03:30 02/18/23 03:00 02/18/23 02:30 02/18/23 02:00 02/18/23 01:30 02/18/23 01:00 02/18/23 00:30 02/18/23 00:00 02/17/23 23:30 02/17/23 23:05 02/17/23 23:05 02/17/23 20:46 93 02/17/23 20:29 96 Pain Intensity Heel: Pain Intensity: 4 Transfer of Care Handoff Completed per policy Notes Mental Status: alert / awake / arousable Patient Amnestic to Procedure: Yes Nausea / Vomiting: adequately controlled Pain: adequately controlled Airway Patency, RR, SpO2: stable & adequate BP & HR: stable & adequate Hydration State: stable & adequate Anesthetic Complications: no major complications apparent and Pt Satisfied with anesthetic care
[2023-02-18] MEDS: DAPTOmycin 450 MG in SYRINGE 0 ML IV SCH (18:44)
--- NOTE | 2023-02-18 21:15 | Operative Report ---
Post Operative Report Pre & Post Diagnosis Operation Date: 02/18/23 06:30 Pre-Op Diagnosis: Bilateral heal wound Post-Op Diagnosis: Bilateral heal wound I identified the patient and participated in the time-out.: Yes Procedure Operation Date: 02/18/23 09:30 Actual Procedures p Bilateral Heel Debridement - Sorin Marti DPM, MS Surgeon Sorin Marti DPM, MS Knuckle Bender none Estimated Blood Loss 5 Findings Consistent with Post-Op Diagnosis necrotic bilateral heel malodorous wounds Specimens None Description of Procedure History of present illness: Patient is a type II diabetic 72-year-old male seen for bilateral heel malodorous wounds. Patient seen today for sharp, excisional debridement. MRI of left ankle shows concern for osteomyelitis of calcaneus Procedure in detail was discussed as well as postoperative care. All questions were answered. All potential risks, benefits, complications, alternatives, rehab, potential for incomplete relief of symptoms, need for further surgery, DVT, PE, , persistent pain, swelling, scarring, weakness, neurovascular, wound complications, and potential for amputations were discussed with patient. Unwanted outcomes such as, but not limited to were reviewed including under correction, overcorrection, return of deformity, infection. All questions were answered. Patient has decided to proceed with procedure as indicated. Preoperative diagnosis: Right and left foot diabetic heel wounds Postoperative diagnosis: Same Procedure in detail: 1.) Excision of necrotic soft tissue right foot 2.) Excision of necrotic soft tissue left foot Surgeon: Dr. Marti Knuckle Bender: none Anesthesia: Local monitored anesthesia care Hemostasis: none Estimated blood loss: 10ml Specimens: None Procedure in detail: Under mild sedation the patient was brought in the operating room and placed on the operating table. Following sedation, the foot and ankle were prepped scrubbed and draped in the usual aseptic manner. Attention was then directed to right foot diabetic non healing wound. The right foot wound pre-debridement measures roughly 4 cm x 5 cm x 0.1 cm. Utilizing a sharp, sterile, #15 blade of extensive debridement of necrotic devitalized soft tissue was achieved. The wound bed was voided of non-viable tissue. Excisional debridement down to and including right calcaneus. Lactate ringer was utilized to flush the wound. The right foot heel wound post debridement measures roughly 4 cm x 5 cm x 0.4 cm. Attention was then directed to left foot diabetic non healing wound. The left foot wound pre-debridement measures roughly 5 cm x 5 cm x 0.1 cm. Utilizing a sharp, sterile, #15 blade of extensive debridement of necrotic devitalized soft tissue was achieved. The wound bed was voided of non-viable tissue. Excisional debridement down to and including left calcaneus. Lactate ringer was utilized to flush the wound. The left foot heel wound post debridement measures roughly 5 cm x 5 cm x 0.4 cm. The wounds were covered with sterile adaptic 4x4 gauze, kerlix followed by off loading waffle boots. The Patient tolerated procedure and anesthesia well he was transferred to recovery room vital signs stable and vascular status intact. Following a period of postoperative monitoring the patient will be re-admitted back to floor resuming all pre-operative orders. Call Dr. Marti for all postoperative care if any problems arise. I attest to the content of the Intraoperative Record and any orders documented therein. Any exceptions are noted below.
[2023-02-18] MEDS: ATORVASTATIN 10 MG TAB PO SCH (22:07)
--- NOTE | 2023-02-18 22:12 | Hospitalist Progress Note ---
Date of Service February 18, 2023 Assessment & Plan (1) Sepsis: Plan: S/P bilateral heel debridement. < 30 ml/kg fluid bolus due to ESRD on dialysis Lactate 4.2 -> 2.5, he is mentating normally, Suspected source right heel ulcer and surrounding cellulitis Follow up blood cultures Vancomycin / Zosyn (2) Unstageable pressure ulcer of right heel: Plan: Appears to be the worst of both sides US arterial doppler MRI ankle Consult ortho Wound care consult (3) Unstageable pressure ulcer of left heel: (4) Left arm weakness: Plan: Reason for last admission. Noted to be improving with rehabilitation. Unclear if he ever had MRI cervical spine but given this is improving will defer on admission. Alternatively may be his rotator cuff. (5) End stage renal disease: Plan: Consult nephrology. usually on Friday//Friday dialysis but because of the holidays he had dialysis today. (6) Type 2 diabetes mellitus with complications: Plan: Appears to be a prior diagnosis as no longer on medication for this. HbA1C 6.4 in November, no need to repeat this (7) Atrial fibrillation, permanent: Plan: Continue apixaban for anticogualtion Rate controlled without AV neal blocking agents Plan VTE Prophylaxis - Eliquis Diet - dialysis renal Admission and Anticipated Discharge Date Admission Date: February 17, 2023 Subjective 72 yo male reports no new symptoms.He has no pain just after leaving OR> Review of Systems Review of Systems: All systems reviewed & are unremarkable except as noted in HPI & below Physical Exam Physical Exam: Constitutional: WD/WN, vitals as above Eyes: PERRL, conjunctivae normal, anicteric sclerae ENMT: external ear and nose normal, oropharynx normal Neck: trachea midline, no thyromegaly Respiratory: normal respiratory effort, lungs clear to auscultation Cardiovascular: Rate/Rhythm: regular rate and + irregularly irregular Heart Sounds: no murmur Extremities: normal capillary refill and + pedal edema; no calf tenderness Gastrointestinal (Abdomen): normal bowel sounds, soft, nontender, no hepatosplenomegaly Skin:heels wrapped in dry dressing. Neurologic: moves all extremities and awake; not confused Psychiatric: A+Ox3, euthymic affect Results & Data Results & Data Vital Signs (Past 12 Hours) Vital Signs Temp Pulse Pulse Resp BP Pulse Ox Pulse Ox 02/18/23 20:04 37.0 C 90 18 126/73 94 02/18/23 18:42 80 100/54 L 96 02/18/23 18:00 37.6 C H 83 18 136/71 95 02/18/23 18:00 02/18/23 17:35 76 14 130/68 96 02/18/23 17:20 36.3 C L 80 16 124/66 95 02/18/23 17:10 86 16 120/70 99 02/18/23 16:58 36 C L 77 11 L 130/68 100 02/18/23 15:48 98 H 20 141/86 H 94 02/18/23 15:45 36.9 C 93 H 16 169/78 H 95 02/18/23 11:38 80 20 136/80 94 02/18/23 11:00 94 O2 Del Method O2 Del Method O2 Flow Rate 02/18/23 20:04 Room Air 02/18/23 18:42 Room Air 02/18/23 18:00 Room Air 02/18/23 18:00 Room Air 02/18/23 17:35 Room Air 02/18/23 17:20 Room Air 02/18/23 17:10 Oxymask 4 02/18/23 16:58 Oxymask 6 02/18/23 15:48 Room Air 02/18/23 15:45 Room Air 02/18/23 11:38 Room Air 02/18/23 11:00 Room Air PG Care Time/CCT Total # of Minutes Spent Total Time Spent with Patient: Total time spent is greater than 50% in coordination of care (as documented) at patient's floor/unit and/or counseling patient: Coding Level of Care Code 84688 SUB INP/OBS CARE 2/35MIN Diagnoses Sepsis A41.9 Unstageable pressure ulcer of right heel L89.610 Unstageable pressure ulcer of left heel L89.620 Left arm weakness R29.898 End stage renal disease N18.6 Type 2 diabetes mellitus with complications E11.8 Atrial fibrillation, permanent I48.21
[2023-02-19] MEDS: PIPERACILLIN/TAZOBACTAM 4.5 GM in DEXTROSE 5% MINI-B 100 ML IV SCH ×2 (05:53→17:58)
[2023-02-19 06:06] LABS: Hematocrit (blood only) 33.2 % (42.0-52.0); Hemoglobin 10.5 g/dl (14.0-18.0); Mean Corpuscular Hemoglobin 30.6 pg (25.0-34.0); Mean Corpuscular Hgb Conc 31.6 g/dL (32.0-36.0); Mean Corpuscular Volume 96.8 fL (80.0-100.0); Mean Platelet Volume 9.9 fL (9.4-12.4); Platelet Count 252 K/uL (130-400); RDW Coefficient of Variation 13.5 % (11.5-14.5); RDW Standard Deviation 47.9 fL (36.4-46.3); Red Blood Count 3.43 M/uL (4.70-6.10); White Blood Count 9.23 K/ul (4.8-10.8)
[2023-02-19 06:34] LABS: Albumin Level 2.8 gm/dl (3.4-5.0); Calcium 8.7 mg/dl (8.6-10.3); Potassium 4.1 mmol/L (3.5-5.1)
[2023-02-19 06:46] LABS: BUN Creatinine Ratio 7.7 (10-20); Creatinine Clr Calc Pharmacy 13.9 ml/min; Est GFR (African American) 10.9 ml/min; Est GFR (Non-African American) 9.4 ml/min; Phosphorus 5.3 mg/dl (2.5-4.9)
[2023-02-19] MEDS: MIDODRINE HCL 2.5 MG TAB PO SCH ×3 (08:31→17:50)
[2023-02-19] MEDS: SEVELAMER HCL 800 MG TABLET PO SCH ×3 (08:32→17:51)
[2023-02-19] MEDS: ACETAMINOPHEN 500 MG TAB PO SCH ×3 (08:32→20:17)
[2023-02-19] MEDS: NEPHROCAPS PO SCH (08:33)
[2023-02-19] MEDS: FLUDROCORTISONE ACETATE 0.1 MG TAB PO SCH (08:33)
[2023-02-19] MEDS: FOLIC ACID 1 MG TAB PO SCH (08:34)
[2023-02-19] MEDS: CLOPIDOGREL BISULFATE 75 MG TAB PO SCH (08:34)
[2023-02-19] MEDS: APIXABAN 5 MG TABLET PO SCH ×2 (09:32→20:17)
--- NOTE | 2023-02-19 10:25 | Nephrology Progress Note ---
Date of Service February 19, 2023 Assessment & Plan (1) End stage renal disease: Plan: ESKD due to DKD. On HD TTS schedule as outpatient. Converted to MWF for holiday. Orders for HD entered into the EHR and reviewed with garden center manager. Roland was seen and evaluated during HD. AVF functioning well. Qb at goal. Rx 3.5 hours, 180 optiflux, 450/800, 3K, 2.5 calcium. EDW 97 kg. Medications are appropriately dosed for kidney function. Check vanco level prior to HD. Renal diet. Sevelamer QAC for hyperphosphatemia. Anticoagulated for atrial fibrillation with apixaban. Maintained on midodrine and fludrocortisone chronically for hypotension. (2) Anemia: Plan: LA therapy held with Hgb >10. Maintained on Micera as outpatient. (3) Chronic kidney disease-mineral and bone disorder: Plan: Renal diet. Continue sevelamer QAC. (4) Unstageable pressure ulcer of right heel: (5) Unstageable pressure ulcer of left heel: Plan: s/p debridement by Dr. Marti yesterday. Remains on Daptomycin and Zosyn. Monitor CK on dapto. Admission and Anticipated Discharge Date Admission Date: February 17, 2023 Subjective No acute events overnight. Rey was seen and evaluated during hemodialysis this AM. He is tolerating treatment well. Denies pain but some persistent burning in his feet. No fevers or chills. Review of Systems Review of Systems: All systems reviewed & are unremarkable except as noted in HPI & below Physical Exam Constitutional: well developed and + morbidly obese; no acute distress Eyes: no scleral abnormality and no corneal abnormality ENMT: Mouth: no oral mucosal abnormality and oral mucous membranes not dry Neck: normal visual inspection and trachea midline Respiratory: normal respiratory effort Auscultation: lungs clear to auscultation bilaterally Cardiovascular: Rate/Rhythm: regular rate Heart Sounds: normal S1 and normal S2 Extremities: + pedal edema and + AV fistula Musculoskeletal: Extremities: no cyanosis and no clubbing Skin: normal turgor; no lesions Neurologic: Motor/Sensory: no tremor and no asterixis Psychiatric: Orientation: alert and oriented x 3 Results & Data Vital Signs (Past 12 Hours) Vital Signs Temp Pulse Pulse Resp BP Pulse Ox O2 Del Method 02/19/23 07:18 36.5 C 84 21 126/76 98 Nasal Cannula 02/19/23 03:38 36.5 C 85 16 145/75 H 99 Room Air O2 Flow Rate 02/19/23 07:18 2 02/19/23 03:38 Laboratory Results Laboratory Results - last 24 hr 02/18/23 02/18/23 02/19/23 17:02 20:34 05:47 WBC 9.23 RBC 3.43 L Hgb 10.5 L Hct 33.2 L MCV 96.8 MCH 30.6 MCHC 31.6 L RDW Std Deviation 47.9 H RDW Coeff of Mukul 13.5 Plt Count 252 MPV 9.9 Sodium 139 Potassium 4.1 Chloride 101 Carbon Dioxide 28 Anion Gap 10 BUN 43 H Creatinine 5.58 H* D Est Cr Clr Drug Dosing 13.9 Est GFR ( Amer) 10.9 Est GFR (Non-Af Amer) 9.4 BUN/Creatinine Ratio 7.7 L Glucose 98 POC Glucose 121 H 125 H Calcium 8.7 Phosphorus 5.3 H Albumin 2.8 L Nasal Screen MRSA (PCR) 02/19/23 02/19/23 07:22 Unknown WBC RBC Hgb Hct MCV MCH MCHC RDW Std Deviation RDW Coeff of Mukul Plt Count MPV Sodium Potassium Chloride Carbon Dioxide Anion Gap BUN Creatinine Est Cr Clr Drug Dosing Est GFR ( Amer) Est GFR (Non-Af Amer) BUN/Creatinine Ratio Glucose POC Glucose 113 H Calcium Phosphorus Albumin Nasal Screen MRSA (PCR) Negative PG Care Time/CCT Total # of Minutes Spent Total Time Spent with Patient: Total time spent is greater than 50% in coordination of care (as documented) at patient's floor/unit and/or counseling patient: Coding Level of Care Code 85645 SUB INP/OBS CARE 3/50MIN Diagnoses End stage renal disease N18.6 Anemia D64.9 Chronic kidney disease-mineral and bone disorder N18.9; E83.9; M89.9 Unstageable pressure ulcer of right heel L89.610 Unstageable pressure ulcer of left heel L89.620
[2023-02-19] MEDS: ATORVASTATIN 10 MG TAB PO SCH (20:17)
--- NOTE | 2023-02-19 21:55 | Hospitalist Progress Note ---
Date of Service February 19, 2023 Assessment & Plan (1) Sepsis: Plan: S/P bilateral heel debridement. < 30 ml/kg fluid bolus due to ESRD on dialysis Lactate 4.2 -> 2.5, he is mentating normally, Suspected source right heel ulcer and surrounding cellulitis Follow up blood cultures, wound cultures Dapto/ Zosyn (2) Unstageable pressure ulcer of right heel: Plan: Appears to be the worst of both sides US arterial doppler MRI ankle Consult ortho Wound care consult (3) Unstageable pressure ulcer of left heel: (4) Left arm weakness: Plan: Reason for last admission. Noted to be improving with rehabilitation. Unclear if he ever had MRI cervical spine but given this is improving will defer on admission. Alternatively may be his rotator cuff. (5) End stage renal disease: Plan: Consult nephrology. usually on Friday//Friday dialysis Currently on holiday schedule (6) Type 2 diabetes mellitus with complications: Plan: Appears to be a prior diagnosis as no longer on medication for this. HbA1C 6.4 in November, no need to repeat this (7) Atrial fibrillation, permanent: Plan: Continue apixaban for anticogualtion Rate controlled without AV neal blocking agents Plan VTE Prophylaxis - Eliquis Diet - dialysis renal Admission and Anticipated Discharge Date Admission Date: February 17, 2023 Subjective Patient reports no new symptoms. Review of Systems Review of Systems: All systems reviewed & are unremarkable except as noted in HPI & below Physical Exam Physical Exam: Constitutional: WD/WN, vitals as above Eyes: PERRL, conjunctivae normal, anicteric sclerae ENMT: external ear and nose normal, oropharynx normal Neck: trachea midline, no thyromegaly Respiratory: normal respiratory effort, lungs clear to auscultation Cardiovascular: Rate/Rhythm: regular rate and + irregularly irregular Heart Sounds: no murmur Extremities: normal capillary refill and + pedal edema; no calf tenderness Gastrointestinal (Abdomen): normal bowel sounds, soft, nontender, no h epatosplenomegaly Skin:heels wrapped in dry dressing. Neurologic: moves all extremities and awake; not confused Psychiatric: A+Ox3, euthymic affect Results & Data Results & Data Vital Signs (Past 12 Hours) Vital Signs Temp Pulse Pulse Pulse Resp BP BP 02/19/23 19:45 37 C 81 18 135/96 02/19/23 18:42 89 02/19/23 15:49 36.5 C 92 H 18 113/75 02/19/23 13:47 36.3 C L 96 H 137/83 02/19/23 13:00 65 79/49 L 02/19/23 12:30 89 81/58 L 02/19/23 12:00 87 95/64 L 02/19/23 11:30 87 93/68 L 02/19/23 11:00 95 H 103/61 02/19/23 10:30 96 H 75/51 L 02/19/23 10:00 83 107/70 Pulse Ox O2 Del Method 02/19/23 19:45 94 Room Air 02/19/23 18:42 02/19/23 15:49 98 Room Air 02/19/23 13:47 02/19/23 13:00 02/19/23 12:30 02/19/23 12:00 02/19/23 11:30 02/19/23 11:00 02/19/23 10:30 02/19/23 10:00 PG Care Time/CCT Total # of Minutes Spent Total Time Spent with Patient: Total time spent is greater than 50% in coordination of care (as documented) at patient's floor/unit and/or counseling patient: Coding Level of Care Code 07908 SUB INP/OBS CARE 2/35MIN Diagnoses Sepsis A41.9 Unstageable pressure ulcer of right heel L89.610 Unstageable pressure ulcer of left heel L89.620 Left arm weakness R29.898 End stage renal disease N18.6 Type 2 diabetes mellitus with complications E11.8 Atrial fibrillation, permanent I48.21
[2023-02-20] MEDS: PIPERACILLIN/TAZOBACTAM 4.5 GM in DEXTROSE 5% MINI-B 100 ML IV SCH ×2 (05:20→17:43)
[2023-02-20] MEDS: MIDODRINE HCL 2.5 MG TAB PO SCH ×3 (05:23→17:22)
--- NOTE | 2023-02-20 06:41 | Electrocardiogram Report ---
Test Reason : Blood Pressure : / mmHG Vent. Rate : 079 BPM Atrial Rate : 000 BPM P-R Int : 000 ms QRS Dur : 094 ms QT Int : 386 ms P-R-T Axes : 000 -05 -25 degrees QTc Int : 442 ms Atrial fibrillation Low voltage QRS Cannot rule out Anterior infarct (cited on or before 08-JAN-2023) Abnormal ECG When compared with ECG of 08-JAN-2023 18:21, QT has shortened Confirmed by Manny Amato ([id number]) on 02/20/2023 6:41:26 AM Referred By: REFERRED SELF Confirmed By:Manny Amato
[2023-02-20 07:09] LABS: Hemoglobin 11.1 g/dl (14.0-18.0); Mean Corpuscular Hemoglobin 30.4 pg (25.0-34.0); Mean Corpuscular Hgb Conc 31.7 g/dL (32.0-36.0); Mean Corpuscular Volume 95.9 fL (80.0-100.0); Mean Platelet Volume 10.1 fL (9.4-12.4); Platelet Count 297 K/uL (130-400); RDW Coefficient of Variation 13.8 % (11.5-14.5); RDW Standard Deviation 48.9 fL (36.4-46.3); Red Blood Count 3.65 M/uL (4.70-6.10); White Blood Count 8.84 K/ul (4.8-10.8)
--- NOTE | 2023-02-20 07:27 | Electrocardiogram Report ---
Test Reason : Blood Pressure : / mmHG Vent. Rate : 083 BPM Atrial Rate : 094 BPM P-R Int : 000 ms QRS Dur : 094 ms QT Int : 400 ms P-R-T Axes : 000 004 -27 degrees QTc Int : 470 ms Atrial fibrillation Possible Anterior infarct (cited on or before 08-JAN-2023) Nonspecific T wave abnormality Abnormal ECG When compared with ECG of 18-FEB-2023 13:06, No significant change was found Confirmed by Manny Amato ([id number] on 02/20/2023 7:26:45 AM Referred By: REFERRED SELF Confirmed By:Manny Amato
[2023-02-20 07:32] LABS: BUN Creatinine Ratio 6.7 (10-20); Calcium 8.9 mg/dl (8.6-10.3); Est GFR (African American) 13.2 ml/min; Est GFR (Non-African American) 11.4 ml/min; Potassium 3.9 mmol/L (3.5-5.1)
--- NOTE | 2023-02-20 08:29 | Nephrology Progress Note ---
Date of Service February 20, 2023 Assessment & Plan (1) End stage renal disease: Plan: * ESKD due to DKD. On HD TTS schedule as outpatient. Converted to [facility] for holiday. * Outpatient HD Rx: 3.5 hours, 180 optiflux, 450/800, 3K, 2.5 calcium. EDW 97 kg. * No acute indication for HD today. Will plan next treatment for am (2) Anemia: Plan: * LA therapy held with Hgb >10. Maintained on Micera as outpatient. (3) Chronic kidney disease-mineral and bone disorder: Plan: * Continue sevelamer QAC. (4) Heel ulceration: Plan: * s/p debridement by Dr. Marti 02/19/23 * Remains on Daptomycin and Zosyn * Recommend monitoring weekly CK while on daptomycin therapy Admission and Anticipated Discharge Date Admission Date: February 17, 2023 Subjective Mr. Blue was evaluated in his hospital room this morning. He denied fever, angina, dyspnea or uremic symptoms. He c/o burning in his heels. Mr. Blue reported no complications w/ HD yesterday Review of Systems Constitutional: no fever Eyes: no problem reported Ear, Nose, Mouth, Throat: no problem reported Respiratory: no cough and no dyspnea Cardiovascular: no chest pain Gastrointestinal: no nausea, no vomiting and no diarrhea/loose stools Integumentary: no rash Physical Exam Constitutional: not in distress Eyes: PERRL, conjunctivae normal, anicteric sclerae ENMT: external ear and nose normal, oropharynx normal Neck: trachea midline, no thyromegaly Respiratory: normal respiratory effort, lungs clear to auscultation Cardiovascular: RRR, no murmur, no edema Extremities: + AV fistula (+ bruit) Gastrointestinal (Abdomen): normal bowel sounds, soft, nontender, no hepatosplenomegaly Musculoskeletal: Extremities: + foot abnormality Bilateral (heels wrapped) Neurologic: Speech / Cognition: + abnormal speech (chronic); normal cognition Results & Data Vital Signs (Past 12 Hours) Vital Signs Temp Pulse Pulse Pulse Resp BP Pulse Ox 02/20/23 08:06 36.7 C 86 20 99/63 L 92 02/20/23 04:46 36.5 C 84 18 126/75 93 02/20/23 02:54 88 02/19/23 23:12 37.1 C 93 H 18 131/68 94 O2 Del Method 02/20/23 08:06 Room Air 02/20/23 04:46 Room Air 02/20/23 02:54 02/19/23 23:12 Room Air Laboratory Results Laboratory Tests 02/20/23 06:10 WBC 8.84 Hgb 11.1 L Hct 35.0 L Plt Count 297 Sodium 139 Potassium 3.9 Chloride 102 Carbon Dioxide 28 BUN 32 H Creatinine 4.75 H* D Glucose 108 H PG Care Time/CCT Total # of Minutes Spent Total Time Spent with Patient: Total time spent is greater than 50% in coordination of care (as documented) at patient's floor/unit and/or counseling patient: Coding Level of Care Code 34440 SUB INP/OBS CARE 3/50MIN Diagnoses End stage renal disease N18.6 Anemia D64.9 Chronic kidney disease-mineral and bone disorder N18.9; E83.9; M89.9 Heel ulceration L97.409
--- NOTE | 2023-02-20 09:37 | Hospitalist Progress Note ---
Date of Service February 20, 2023 Assessment & Plan (1) Sepsis: Plan: S/P bilateral heel debridement by Dr Marti 02/18 < 30 ml/kg fluid bolus due to ESRD on dialysis Lactate 4.2 -> 2.5, he is mentating normally, Suspected source right heel ulcer and surrounding cellulitis Blood culture negative after 48 hours Right heel surgical wound culture - probable anaerobic gram negative bacilli Dapto (CK level with AM labs as he is still on atorvastatin) / Zosyn pending ID consult (2) Acute osteomyelitis of right calcaneus: Plan: s/p b/l heel debridement Dr Marti 02/18: Defer wound care to podiatry and wound care nurse US arterial doppler - left peroneal artery absent flow, will consult vascular surgery - Dr Noel (no coverage for Dr Edmonds today or tomorrow) MRI ankle - reactive osteitis concerning for early osteomyelitis - debridement down to calcaneus per operation note therefore will consult ID for osteomyelitis treatment Need to clarify weight bearing status with podiatry - will place PT/OT orders for toe touch on both sides for today (3) Acute osteomyelitis of left calcaneus: (4) Unstageable pressure ulcer of right heel: (5) Unstageable pressure ulcer of left heel: (6) Left arm weakness: Plan: Reason for last admission. Noted to be improving with rehabilitation. Unclear if he ever had MRI cervical spine but given this is improving will defer on admission. Alternatively may be his rotator cuff. (7) End stage renal disease: Plan: Consult nephrology. usually on Friday//Friday dialysis Currently on holiday schedule (8) Type 2 diabetes mellitus with complications: Plan: Appears to be a prior diagnosis as no longer on medication for this. HbA1C 6.4 in November, not accurate in setting of dialysis patient although fasting glucose 98 also not consistent with T2DM (9) Atrial fibrillation, permanent: Plan: Continue apixaban for anticoagulation Rate controlled without AV neal blocking agents, no need for ongoing telemetry at this time Plan VTE Prophylaxis - Eliquis Diet - dialysis renal Disposition - telemetry reviewed 02/20, stable for transfer to med/surg Admission and Anticipated Discharge Date Admission Date: February 17, 2023 Subjective No acute concerns or questions from the patient. Surgical dressings not removed but no cellulitis above this. Had a bowel movement this morning. No nausea, vomiting, abdominal pain. Patient reports eating well. Review of Systems Review of Systems: All systems reviewed & are unremarkable except as noted in HPI & below Physical Exam Constitutional: WD/WN, vitals as above Respiratory: normal respiratory effort, lungs clear to auscultation Cardiovascular: Rate/Rhythm: regular rate and + irregularly irregular Heart Sounds: no murmur Gastrointestinal (Abdomen): normal bowel sounds, soft, nontender, no hepatosplenomegaly Skin: surgical dressing in place and in boots b/l Neurologic: moves all extremities and awake; not confused Psychiatric: A+Ox3, euthymic affect Results & Data Results & Data Vital Signs (Past 12 Hours) Vital Signs Temp Pulse Pulse Pulse Resp BP Pulse Ox 02/20/23 08:06 36.7 C 86 20 99/63 L 92 02/20/23 04:46 36.5 C 84 18 126/75 93 02/20/23 02:54 88 02/19/23 23:12 37.1 C 93 H 18 131/68 94 O2 Del Method 02/20/23 08:06 Room Air 02/20/23 04:46 Room Air 02/20/23 02:54 02/19/23 23:12 Room Air Laboratory Results Abnormal lab results 02/19/23 02/19/23 02/20/23 Range/Units 16:19 20:32 06:10 RBC 3.65 L (4.70-6.10) M/uL Hgb 11.1 L (14.0-18.0) g/dl Hct 35.0 L (42.0-52.0) % MCHC 31.7 L (32.0-36.0) g/dL RDW Std Deviation 48.9 H (36.4-46.3) fL BUN 32 H (6-23) mg/dl Creatinine 4.75 H* D (0.6-1.4) mg/dl BUN/Creatinine Ratio 6.7 L (10-20) Glucose 108 H (70-99(Fasting)) mg/dl POC Glucose 108 H 125 H (70-99) mg/dl 02/20/23 02/20/23 Range/Units 08:02 11:39 RBC (4.70-6.10) M/uL Hgb (14.0-18.0) g/dl Hct (42.0-52.0) % MCHC (32.0-36.0) g/dL RDW Std Deviation (36.4-46.3) fL BUN (6-23) mg/dl Creatinine (0.6-1.4) mg/dl BUN/Creatinine Ratio (10-20) Glucose (70-99(Fasting)) mg/dl POC Glucose 109 H 207 H (70-99) mg/dl PG Care Time/CCT Total # of Minutes Spent Total Time Spent with Patient: Total time spent is greater than 50% in coordination of care (as documented) at patient's floor/unit and/or counseling patient: Coding Level of Care Code 34112 SUB INP/OBS CARE 3/50MIN Diagnoses Sepsis A41.9 Acute osteomyelitis of right calcaneus M86.171 Acute osteomyelitis of left calcaneus M86.172 Unstageable pressure ulcer of right heel L89.610 Unstageable pressure ulcer of left heel L89.620 Left arm weakness R29.898 End stage renal disease N18.6 Type 2 diabetes mellitus with complications E11.8 Atrial fibrillation, permanent I48.21
[2023-02-20] MEDS: SEVELAMER HCL 800 MG TABLET PO SCH ×3 (09:42→17:21)
[2023-02-20] MEDS: APIXABAN 5 MG TABLET PO SCH ×2 (09:43→19:44)
[2023-02-20] MEDS: FLUDROCORTISONE ACETATE 0.1 MG TAB PO SCH (09:43)
[2023-02-20] MEDS: FOLIC ACID 1 MG TAB PO SCH (09:44)
[2023-02-20] MEDS: CLOPIDOGREL BISULFATE 75 MG TAB PO SCH (09:44)
[2023-02-20] MEDS: NEPHROCAPS PO SCH (09:44)
[2023-02-20] MEDS: ACETAMINOPHEN 500 MG TAB PO SCH ×3 (09:46→19:43)
[2023-02-20] MEDS: DAPTOmycin 450 MG in SYRINGE 0 ML IV SCH (17:40)
[2023-02-20] MEDS: ATORVASTATIN 10 MG TAB PO SCH (19:45)
--- NOTE | 2023-02-20 21:57 | Orthopedic Progress Note ---
Date of Service February 20, 2023 Assessment & Plan (1) Unstageable pressure ulcer of right heel: Plan: Patient seen status post day #2 bilateral heel wound debridement (DOS: 02/18/23) Patient resting comfortably no complaints. Awaiting microbiology results for cultures and sensitives. Patient will require abx for treatment of +OM. Clear margins were not definitely obtained. Patient to utilize off loading waffle boots while at rest supine. Patient is weight bearing as tolerated with waffle off loading boots removed. Will continue to follow while in house. Thank you for allowing me to participate in the care of this Patient. (2) Unstageable pressure ulcer of left heel: (3) Nonhealing wound of heel: (4) Sepsis: Admission and Anticipated Discharge Date Admission Date: February 17, 2023 Subjective Patient seen at bedside status post day #2 bilateral heel wound debridement. Patient resting comfortably with no complaints. Off loading waffle boots in place. Review of Systems Review of Systems: All systems reviewed & are unremarkable except as noted in Subjective Physical Exam Constitutional: cooperative and comfortable Eyes: normal visual farfan by confrontation Neck: normal visual inspection and trachea midline Respiratory: normal respiratory effort Cardiovascular: Vessels: posterior tibial pulses present and dorsalis pedis pulses present Skin: + ulcer (Bilateral retrocalcaneal heel w ounds full thickness down to bone) Results & Data Vital Signs (Past 12 Hours) Vital Signs Temp Pulse Pulse Resp BP Pulse Ox O2 Del Method 02/20/23 16:35 37.0 C 89 18 121/72 96 Room Air 02/20/23 15:12 82
[2023-02-21] MEDS: MIDODRINE HCL 2.5 MG TAB PO SCH ×3 (06:16→17:45)
[2023-02-21] MEDS: PIPERACILLIN/TAZOBACTAM 4.5 GM in DEXTROSE 5% MINI-B 100 ML IV SCH (06:20)
[2023-02-21] MEDS ORDERED: SODIUM CHLORIDE 0.9% 1,000 ML IV PRN (07:00)
[2023-02-21 07:31] LABS: Basophils # (auto) 0.08 K/uL (0.00-0.20); Eosinophils # (auto) 0.14 K/uL (0.00-0.50); Eosinophils % (auto) 1.8 %; Hematocrit (blood only) 35.2 % (42.0-52.0); Hemoglobin 11.3 g/dl (14.0-18.0); Immature Granulocytes # (auto) 0.09 K/uL (0.01-0.20); Immature Granulocytes % (auto) 1.2 %; Lymphocytes # (auto) 1.24 K/uL (1.20-3.40); Lymphocytes % (auto) 16.2 %; Mean Corpuscular Hemoglobin 30.7 pg (25.0-34.0); Mean Corpuscular Hgb Conc 32.1 g/dL (32.0-36.0); Mean Corpuscular Volume 95.7 fL (80.0-100.0); Mean Platelet Volume 9.8 fL (9.4-12.4); Monocytes # (auto) 0.74 K/uL (0.11-0.59); Monocytes % (auto) 9.7 %; Neutrophils # (auto) 5.35 K/uL (1.40-6.50); Neutrophils % (auto) 70.1 %; Platelet Count 282 K/uL (130-400); RDW Standard Deviation 49.1 fL (36.4-46.3); Red Blood Count 3.68 M/uL (4.70-6.10); White Blood Count 7.64 K/ul (4.8-10.8)
[2023-02-21 08:13] LABS: BUN Creatinine Ratio 7.8 (10-20); Creatinine Clr Calc Pharmacy 11.7 ml/min; Est GFR (African American) 9.8 ml/min; Est GFR (Non-African American) 8.5 ml/min; Magnesium 2.3 mg/dl (1.7-2.4); Potassium 3.8 mmol/L (3.5-5.1)
[2023-02-21] MEDS: ACETAMINOPHEN 500 MG TAB PO SCH ×3 (08:25→19:41)
[2023-02-21] MEDS: SEVELAMER HCL 800 MG TABLET PO SCH ×3 (08:26→17:45)
[2023-02-21] MEDS: APIXABAN 5 MG TABLET PO SCH ×2 (08:27→19:41)
[2023-02-21] MEDS: FLUDROCORTISONE ACETATE 0.1 MG TAB PO SCH (08:27)
[2023-02-21] MEDS: CLOPIDOGREL BISULFATE 75 MG TAB PO SCH (08:27)
[2023-02-21] MEDS: FOLIC ACID 1 MG TAB PO SCH (08:28)
[2023-02-21] MEDS: NEPHROCAPS PO SCH (08:29)
--- NOTE | 2023-02-21 08:42 | Nephrology Progress Note ---
Date of Service February 21, 2023 Assessment & Plan (1) End stage renal disease: Plan: * ESKD due to DKD. On HD TTS schedule as outpatient. Converted to [facility] for holiday. * Outpatient HD Rx: 3.5 hours, 180 optiflux, 450/800, 3K, 2.5 calcium. EDW 97 kg. * Will provide short 3 hour HD today and plan 2 hour treatment tomorrow to resume TTS outpatient schedule. Orders for today have been entered into EMR and HD RN notified (2) Anemia: Plan: * LA therapy held with Hgb >10. Maintained on Micera as outpatient. (3) Chronic kidney disease-mineral and bone disorder: Plan: * Continue sevelamer QAC. (4) Heel ulceration: Plan: * s/p debridement by Dr. Marti 02/19/23 * Remains on Daptomycin and Zosyn * Recommend monitoring weekly CK while on daptomycin therapy (02/21/23 CPK 49) Admission and Anticipated Discharge Date Admission Date: February 17, 2023 Subjective Mr. Blue was evaluated in his hospital room this morning. He denied fever, angina, dyspnea or uremic symptoms. He c/o burning in his heels. Review of Systems Constitutional: no fever Eyes: no problem reported Ear, Nose, Mouth, Throat: no problem reported Respiratory: no cough and no dyspnea Cardiovascular: no chest pain Gastrointestinal: no nausea, no vomiting and no diarrhea/loose stools Integumentary: no rash Physical Exam Constitutional: not in distress Eyes: PERRL, conjunctivae normal, anicteric sclerae ENMT: external ear and nose normal, oropharynx normal Neck: trachea midline, no thyromegaly Respiratory: normal respiratory effort, lungs clear to auscultation Cardiovascular: RRR, no murmur, no edema Extremities: + AV fistula (+ bruit) Gastrointestinal (Abdomen): normal bowel sounds, soft, nontender, no hepatosplenomegaly Musculoskeletal: Extremities: + foot abnormality Neurologic: Speech / Cognition: + abnormal speech (chronic); normal cognition Results & Data Vital Signs (Past 12 Hours) Vital Signs Temp Pulse Resp BP Pulse Ox O2 Del Method 02/21/23 07:50 36.6 C 98 H 18 127/82 93 Room Air 02/20/23 23:40 36.4 C L 80 20 114/71 96 Room Air Laboratory Results Laboratory Tests 02/21/23 07:02 WBC 7.64 Hgb 11.3 L Hct 35.2 L Plt Count 282 Sodium 140 Potassium 3.8 Chloride 102 Carbon Dioxide 27 BUN 47 H Creatinine 6.06 H* D Glucose 114 H Laboratory Tests 02/21/23 07:02 Total Creatine Kinase 49 02/17/23 R foot MRI: Marrow signal abnormality within the posterior lateral calcaneus consistent with reactive osteitis and concerning for early osteomyelitis. PG Care Time/CCT Total # of Minutes Spent Total Time Spent with Patient: Total time spent is greater than 50% in coordination of care (as documented) at patient's floor/unit and/or counseling patient: Coding Level of Care Code 87223 SUB INP/OBS CARE 3/50MIN Diagnoses End stage renal disease N18.6 Anemia D64.9 Chronic kidney disease-mineral and bone disorder N18.9; E83.9; M89.9 Heel ulceration L97.409
[2023-02-21] MEDS: ADVANCED PROBIOTIC 1250 MG CAPSULE PO SCH (12:48)
--- NOTE | 2023-02-21 16:20 | Infectious Disease Consult ---
Date of Consultation February 21, 2023 PLEASE NOTE: E-consult was performed given that no telepresenters were available on today 02/21/23. 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 ID is consulted for bilateral calcaneal osteomyelitis. Unfortunately, patient was already on dapto and pip-tazo prior to OR thus may have lowered the yield of operative cultures. Thus far cx only growing Bacteroides thetaiotaomicron, will continue to follow OR cx until finalized. Of note, Bacteroides thetaiotaomicron is less susceptible to pip-tazo (which may have preferentially selected for it in culture. His infection is most likely polymicrobial (GPCs on g/s on 02/17 wound cx and 02/18 OR specimen which may represent Strep or Staph), and the Bacteroides/anaerobic component is less likely to be driving the primary infection especially now after source control from surgery. Cure of his osteomyelitis will depend on his ability to heal his bilateral heel wounds, and thus would ensure close follow-up with wound care. Would continue daptomycin and change to cefepime to complete a 6-week course (stop pip-tazo). Would recommend to complete a 2-week course of metronidazole (for targeted anaerobic coverage; would not continue metronidazole beyond 2 weeks given toxicities and given source control from OR). Would recommend ID outpatient follow-up if able. Upon ID follow-up, based on wound healing, clinical status, and inflammatory markers, consideration could be made to transition to PO for the tail end of his 6-week course (after 4 weeks of IV). ID Problem List: 1.Bilateral heel wounds c/b bilateral calcaneal osteomyelitis 2.Infection with Bacteroides 3.ESRD on HD 4.T2DM Recommendations: - Continue daptomycin 450 mg IV Q48H (renally dosed for HD pt) to complete a 6- week course (02/18/23 04/01/23) - Start cefepime 1g IV Q24H (post-HD on HD days) to complete a 6-week course (02/18/23 04/01/23) - Start metronidazole 500 mg PO BID to complete a 2-week course (02/18/23- 03/03/23) - Stop pip-tazo - Lab monitoring while on antibiotics, weekly: CBC w/ diff, CMP, CPK, ESR, CRP - Recommend outpatient ID follow-up if able, as well as podiatry/wound clinic - Could consider alternate regimen, possibly PO, to finish the tail end of his treatment course after at least 4 weeks of IV - F/u OR cx until finalized - Ensure close follow-up with wound care - Please reengage ID if his OR cultures have further growth. Plan discussed with hospitalist. Patient will be likely discharging over the weekend. ID will sign off at this time. Please reengage ID if his OR cultures have further growth. Thank you for letting ID participate in the care of this patient. If questions, please contact the [facility] call center at [phone]. Viridiana Ryan MD, MHS Infectious Diseases [facility] direct line: [phone] Consultation Information This patient recommendation is based on a telemedicine consult request which was completed asynchronously through chart review and information provided by the primary physician. The patient was not seen or examined today. The evaluation is consultative in nature and all patient care and treatment decisions can either be accepted or rejected by the patient's primary hospital-based treating physician using their own independent medical judgment for their patient. [employer] contact information: Please call [facility] Call Center [phone]. (Phone Number For Physician Use Only) PLEASE NOTE: E-consult was performed given that no telepresenters were available on today 02/21/23. Time Spent Reviewing Chart: 31+ minutes History of Present Illness Reason for Consultation: calcaneous osteomyelitis Attending Physician: Osito Pelletier Allergies Allergy/AdvReac Type Severity Reaction Status Date / Time amlodipine AdvReac Severe FLU Verified 01/08/23 22:00 [facility] Home Medications Medication Instructions Recorded Confirmed Type lidocaine-prilocaine 2.5 %-2.5 % 1 applic topical DIRECTED 08/17/20 02/17/23 History topical cream vit B complx, C-iron 8 mg-folic 1 tab PO DAILY 08/17/20 02/17/23 History acid 800 mcg-D3 1,000 unit-zinc tablet (ProRenal) clopidogrel 75 mg tablet 75 mg PO DAILY 02/13/22 02/17/23 History folic acid 1 mg tablet 2 mg PO DAILY 02/13/22 02/17/23 History sevelamer carbonate 800 mg tablet 800 mg PO TID 02/13/22 02/17/23 History apixaban 5 mg tablet (Eliquis) 5 mg PO BID #60 tabs 08/12/22 02/17/23 Rx fludrocortisone 0.1 mg tablet 0.1 mg PO DAILY #90 tabs 11/08/22 02/17/23 Rx acetaminophen 650 mg 1,300 mg PO DAILY PRN Pain 12/17/22 02/17/23 History tablet,extended release atorvastatin 10 mg tablet 10 mg PO HS 02/17/23 02/17/23 History midodrine 5 mg tablet 5 mg PO TID PRN low BP 02/17/23 02/17/23 History Patient History Medical History (Updated 02/21/23 @ 17:03 by Viridiana Ryan MD) CVA (cerebral vascular accident) End stage renal disease Carotid arterial disease Orthostatic hypotension Atrial fibrillation, permanent Fistula left arm Diabetes type 2, controlled ESRD (end stage renal disease) on dialysis Hyperlipidemia Hypertension Presence of arteriovenous fistula for hemodialysis, primary Surgical History S/P carotid endarterectomy History of tooth extraction History of surgery on arm Family History Mother , age 65 of cancer -uncertain type Cancer Father , in his 50s of cancer Stomach cancer Esophagus cancer Cancer Cancer of bowel Sister Kidney stone Social History Smoking Status: Never smoker Second Hand Exposure: No; Do You Dip or Chew Tobacco: No; Hx Alcohol Use: No Hx Substance Use: No Preferred Language: Georgian Communication Ability: Effective Dental Chair Assembler Required: Yes Beliefs That Will Affect Care: None marital status: Current Living Situation: Family Current Living Situation Comment: daughter lives w/ patient current occupational status: retired current occupation: retired age 64 from [employer] Feels Safe at Home: Yes Assistive Devices: Hospital Bed, Walker and Wheelchair Results & Data Vital Signs (Past 12 Hours) Vital Signs Temp Pulse Pulse Pulse Resp BP BP 02/21/23 14:57 02/21/23 14:46 36.8 C 86 14 114/75 02/21/23 12:40 36.4 C L 104 H 14 105/71 02/21/23 12:10 36.5 C 87 118/88 02/21/23 12:00 74 90/59 L 02/21/23 11:42 02/21/23 11:30 73 91/59 L 02/21/23 11:00 95 H 94/60 L 02/21/23 10:30 93 H 87/61 L 02/21/23 10:00 99 H 98/61 L 02/21/23 09:30 91 H 101/67 02/21/23 09:15 100 H 128/70 02/21/23 08:57 36.5 C 85 02/21/23 07:50 36.6 C 98 H 18 127/82 Pulse Ox O2 Del Method 02/21/23 14:57 Room Air 02/21/23 14:46 97 Room Air 02/21/23 12:40 95 Room Air 02/21/23 12:10 02/21/23 12:00 02/21/23 11:42 Room Air 02/21/23 11:30 02/21/23 11:00 02/21/23 10:30 02/21/23 10:00 02/21/23 09:30 02/21/23 09:15 02/21/23 08:57 02/21/23 07:50 93 Room Air Diagnostic Findings Diagnostics: 02/18 OR report: Under mild sedation the patient was brought in the operating room and placed on the operating table. Following sedation, the foot and ankle were prepped scrubbed and draped in the usual aseptic manner. Attention was then directed to right foot diabetic non healing wound. The right foot wound pre-debridement measures roughly 4 cm x 5 cm x 0.1 cm. Utilizing a sharp, sterile, #15 blade of extensive debridement of necrotic devitalized soft tissue was achieved. The wound bed was voided of non-viable tissue. Excisional debridement down to and including right calcaneus. Lactate ringer was utilized to flush the wound. The right foot heel wound post debridement measures roughly 4 cm x 5 cm x 0.4 cm. Attention was then directed to left foot diabetic non healing wound. The left foot wound pre-debridement measures roughly 5 cm x 5 cm x 0.1 cm. Utilizing a sharp, sterile, #15 blade of extensive debridement of necrotic devitalized soft tissue was achieved. The wound bed was voided of non-viable tissue. Excisional debridement down to and including left calcaneus. Lactate ringer was utilized to flush the wound. The left foot heel wound post debridement measures roughly 5 cm x 5 cm x 0.4 cm. The wounds were covered with sterile adaptic 4x4 gauze, kerlix followed by off loading waffle boots. 02/17 R ankle MRI: Marrow signal abnormality within the posterior lateral calcaneus consistent with reactive osteitis and concerning for early osteomyelitis. Micro Summary: 02/18 L heel #2: g/s neg; cx low counts probable skin microbiota 02/18 R heel #1: g/s rare GPCs and rare WBCs; cx Bacteroides thetaiotaomicron, low counts probable skin cb 02/17 BCx x2 NGTD 02/17 wound g/s many GPCs, few GNRs; cx moderate counts mixed probable skin microbiota Antibiotic Summary: Daptomycin (02/17-present) Pip-tazo (02/17-present) Prior Vancomycin (02/17)
[2023-02-21] MEDS ORDERED: CEFEPIME 2,000 MG in SYRINGE 0 ML IV SCH (16:45)
[2023-02-21] MEDS ORDERED: metroNIDAZOLE 500 MG/100 ML BAG IV SCH (17:00)
[2023-02-21] MEDS: CEFEPIME 1,000 MG in SYRINGE 0 ML IV SCH (17:46)
--- NOTE | 2023-02-21 18:46 | Hospitalist Progress Note ---
Date of Service February 21, 2023 Assessment & Plan (1) Sepsis: Plan: S/P bilateral heel debridement by Dr Marti 02/18 < 30 ml/kg fluid bolus due to ESRD on dialysis Lactate 4.2 -> 2.5, he is mentating normally, Suspected source right heel ulcer and surrounding cellulitis Blood culture negative after 48 hours Right heel surgical wound culture - probable anaerobic gram negative bacilli Dapto (CK level with AM labs as he is still on atorvastatin) Zosyn switched to cefepime/ flagyl per ID. Patient will need to remain on these antibiotics for course of treatment: 6 weeks. (2) Acute osteomyelitis of right calcaneus: Plan: s/p b/l heel debridement Dr Marti 02/18: Defer wound care to podiatry and wound care nurse US arterial doppler - left peroneal artery absent flow, will consult vascular medrano rgery - Dr Noel (no coverage for Dr Edmonds today or tomorrow) MRI ankle - reactive osteitis concerning for early osteomyelitis - debridement down to calcaneus per operation note therefore will consult ID for osteomyelitis treatment placed PT/OT orders: weight bearing as tolerated with waffle off loading boots removed as per podiatry. (3) Acute osteomyelitis of left calcaneus: (4) Unstageable pressure ulcer of right heel: (5) Unstageable pressure ulcer of left heel: (6) Left arm weakness: Plan: Reason for last admission. Noted to be improving with rehabilitation. Unclear if he ever had MRI cervical spine but given this is improving will defer on admission. Alternatively may be his rotator cuff. (7) End stage renal disease: Plan: Consult nephrology. usually on Friday//Friday dialysis Currently on holiday schedule (8) Type 2 diabetes mellitus with complications: Plan: Appears to be a prior diagnosis as no longer on medication for this. HbA1C 6.4 in November, not accurate in setting of dialysis patient although fasting glucose 98 also not consistent with T2DM (9) Atrial fibrillation, permanent: Plan: Continue apixaban for anticoagulation Rate controlled without AV neal blocking agents, no need for ongoing telemetry at this time Plan VTE Prophylaxis - Eliquis Diet - dialysis renal Disposition - telemetry reviewed 02/20, stable for transfer to med/surg Admission and Anticipated Discharge Date Admission Date: February 17, 2023 Subjective Patient reports no new symptoms. Review of Systems Review of Systems: All systems reviewed & are unremarkable except as noted in HPI & below Physical Exam Physical Exam: Constitutional: WD/WN, vitals as above Eyes: PERRL, conjunctivae normal, anicteric sclerae ENMT: external ear and nose normal, oropharynx normal Neck: trachea midline, no thyromegaly Respiratory: normal respiratory effort, lungs clear to auscultation Cardiovascular: Rate/Rhythm: regular rate and + irregularly irregular Heart Sounds: no murmur Extremities: normal capillary refill and + pedal edema; no calf tenderness Gastrointestinal (Abdomen): normal bowel sounds, soft, nontender, no hepatosplenomegaly Skin:heels wrapped in dry dressing. Neurologic: moves all extremities and awake; not confused Psychiatric: A+Ox3, euthymic affect Results & Data Results & Data Vital Signs (Past 12 Hours) Vital Signs Temp Pulse Pulse Pulse Resp BP BP 02/21/23 14:57 02/21/23 14:46 36.8 C 86 14 114/75 02/21/23 12:40 36.4 C L 104 H 14 105/71 02/21/23 12:10 36.5 C 87 118/88 02/21/23 12:00 74 90/59 L 02/21/23 11:42 02/21/23 11:30 73 91/59 L 02/21/23 11:00 95 H 94/60 L 02/21/23 10:30 93 H 87/61 L 02/21/23 10:00 99 H 98/61 L 02/21/23 09:30 91 H 101/67 02/21/23 09:15 100 H 128/70 02/21/23 08:57 36.5 C 85 02/21/23 07:50 36.6 C 98 H 18 127/82 Pulse Ox O2 Del Method 02/21/23 14:57 Room Air 02/21/23 14:46 97 Room Air 02/21/23 12:40 95 Room Air 02/21/23 12:10 02/21/23 12:00 02/21/23 11:42 Room Air 02/21/23 11:30 02/21/23 11:00 02/21/23 10:30 02/21/23 10:00 02/21/23 09:30 02/21/23 09:15 02/21/23 08:57 02/21/23 07:50 93 Room Air PG Care Time/CCT Total # of Minutes Spent Total Time Spent with Patient: Total time spent is greater than 50% in coordination of care (as documented) at patient's floor/unit and/or counseling patient: Coding Level of Care Code 48837 SUB INP/OBS CARE 2/35MIN Diagnoses Sepsis A41.9 Acute osteomyelitis of right calcaneus M86.171 Acute osteomyelitis of left calcaneus M86.172 Unstageable pressure ulcer of right heel L89.610 Unstageable pressure ulcer of left heel L89.620 Left arm weakness R29.898 End stage renal disease N18.6 Type 2 diabetes mellitus with complications E11.8 Atrial fibrillation, permanent I48.21
[2023-02-21] MEDS: metroNIDAZOLE 500 MG TAB PO SCH (19:41)
[2023-02-21] MEDS: ATORVASTATIN 10 MG TAB PO SCH (19:41)
--- NOTE | 2023-02-21 21:17 | Orthopedic Progress Note ---
Date of Service February 21, 2023 Assessment & Plan (1) Unstageable pressure ulcer of right heel: Plan: Patient seen status post day #3 bilateral heel wound debridement (DOS: 02/18/23) Reviewed ID note. Thank you for consultation. Dry, sterile dressing change without incident. adaptic, 4x4, abd, kerlix, Abhi, waffle boots. Patient to utilize off loading waffle boots while at rest supine. Patient is weight bearing as tolerated with waffle off loading boots removed. Will continue to follow while in house. Thank you for allowing me to participate in the care of this Patient. (2) Unstageable pressure ulcer of left heel: (3) Nonhealing wound of heel: (4) Sepsis: Admission and Anticipated Discharge Date Admission Date: February 17, 2023 Subjective Patient seen at bedside in room E312-1 resting comfortably. He notes no complaints. Waffle boots intact and applied correctly. Patient notes he is looking forward to PT/OT eval and treat tomorrow where he will be weight bearing as tolerated. Patient notes it has been over 2 years since he has ambulated. Review of Systems Review of Systems: All systems reviewed & are unremarkable except as noted in Subjective Physical Exam Constitutional: cooperative and comfortable Eyes: normal visual farfan by confrontation Neck: normal visual inspection and trachea midline Respiratory: normal respiratory effort Cardiovascular: Vessels: posterior tibial pulses present and dorsalis pedis pulses present Skin: + ulcer (Bilateral retrocalcaneal heel w ounds full thickness with developing eschar) Results & Data Vital Signs (Past 12 Hours) Vital Signs Temp Pulse Pulse Pulse Resp BP BP 02/21/23 19:38 36.7 C 83 16 130/79 02/21/23 14:57 02/21/23 14:46 36.8 C 86 14 114/75 02/21/23 12:40 36.4 C L 104 H 14 105/71 02/21/23 12:10 36.5 C 87 118/88 02/21/23 12:00 74 90/59 L 02/21/23 11:42 02/21/23 11:30 73 91/59 L 02/21/23 11:00 95 H 94/60 L 02/21/23 10:30 93 H 87/61 L 02/21/23 10:00 99 H 98/61 L 02/21/23 09:30 91 H 101/67 02/21/23 09:15 100 H 128/70 Pulse Ox O2 Del Method 02/21/23 19:38 97 Room Air 02/21/23 14:57 Room Air 02/21/23 14:46 97 Room Air 02/21/23 12:40 95 Room Air 02/21/23 12:10 02/21/23 12:00 02/21/23 11:42 Room Air 02/21/23 11:30 02/21/23 11:00 02/21/23 10:30 02/21/23 10:00 02/21/23 09:30 02/21/23 09:15 Diagnostic Findings [address] [place] [address] / Director: Sylvester Ramey M.D. Clinical Laboratory Report Name: JENIFFER JUNIOR Acct: [id number] Status: [place] 1950 [facility] [place] 02/17/23 Age: 72 Sex: M Dis Date: Loc: Medical/Surgical/Ortho [address] [place] [address]/Bed: [facility] Spec: [id number] Collected: 02/18/23 Received: 02/18/[address]: Sorin Marti, DPM, MS Copy To: Rickey Moran MD Source: Foot OV Order: Ordered: Aer/Melia Cult/Sm Comments: Comment culture # 1 right heal wound aerobic, anerobic, Procedure Result Verified Site Gram Stain Final 02/18/23 Gram Stain Result Rare Gram Positive Cocci Rare WBCs Seen Aero/Melia Cult Preliminary 02/21/23-1441 Organism 1 Bacteroides thetaiotaomicron Quantity Moderate Sens No Sensitivities to Follow +MixWound Plus Low Counts of Probable Skin Lyla Name: JENIFFER JUNIOR : 1950 PAGE 1 Printed: 02/21/232121 END OF REPORT
[2023-02-22] MEDS: MIDODRINE HCL 2.5 MG TAB PO SCH ×3 (06:24→16:54)
[2023-02-22] MEDS ORDERED: SODIUM CHLORIDE 0.9% 1,000 ML IV PRN (07:00)
[2023-02-22] MEDS: FOLIC ACID 1 MG TAB PO SCH (08:22)
[2023-02-22] MEDS: CLOPIDOGREL BISULFATE 75 MG TAB PO SCH (08:22)
[2023-02-22] MEDS: FLUDROCORTISONE ACETATE 0.1 MG TAB PO SCH (08:22)
[2023-02-22] MEDS: APIXABAN 5 MG TABLET PO SCH ×2 (08:22→19:45)
[2023-02-22] MEDS: NEPHROCAPS PO SCH (08:22)
[2023-02-22] MEDS: ADVANCED PROBIOTIC 1250 MG CAPSULE PO SCH (08:22)
[2023-02-22] MEDS: SEVELAMER HCL 800 MG TABLET PO SCH ×3 (08:23→16:54)
[2023-02-22] MEDS: metroNIDAZOLE 500 MG TAB PO SCH ×2 (08:23→19:45)
[2023-02-22] MEDS: ACETAMINOPHEN 500 MG TAB PO SCH ×3 (08:37→19:45)
--- NOTE | 2023-02-22 08:59 | Nephrology Progress Note ---
Date of Service February 22, 2023 Assessment & Plan (1) End stage renal disease: Plan: * ESKD due to DKD * Outpatient HD Rx: 3.5 hours, 180 optiflux, 450/800, 3K, 2.5 calcium. EDW 97 kg. * Will provide 2 hour HD today in order to resume TTS outpatient schedule. O rders for today have been entered into EMR and HD RN notified (2) Anemia: Plan: * LA therapy held with Hgb >10. Maintained on Micera as outpatient. (3) Chronic kidney disease-mineral and bone disorder: Plan: * Continue sevelamer QAC. (4) Heel ulceration: Plan: * s/p debridement by Dr. Marti 02/19/23 * Remains on Daptomycin, Cefepime and Flagyl * Recommend monitoring weekly CK while on Daptomycin therapy (02/21/23 CPK 49) Admission and Anticipated Discharge Date Admission Date: February 17, 2023 Subjective Mr. Blue was evaluated in his hospital room this morning. He denied fever, angina, dyspnea or uremic symptoms. He was awaiting HD this morning Review of Systems Constitutional: no fever Eyes: no problem reported Ear, Nose, Mouth, Throat: no problem reported Respiratory: no cough and no dyspnea Cardiovascular: no chest pain Gastrointestinal: no nausea, no vomiting and no diarrhea/loose stools Integumentary: no rash Physical Exam Constitutional: not in distress Eyes: PERRL, conjunctivae normal, anicteric sclerae ENMT: external ear and nose normal, oropharynx normal Neck: trachea midline, no thyromegaly Respiratory: normal respiratory effort, lungs clear to auscultation Cardiovascular: RRR, no murmur, no edema Extremities: + AV fistula (+ bruit) Gastrointestinal (Abdomen): normal bowel sounds, soft, nontender, no hepatosplenomegaly Musculoskeletal: Extremities: + foot abnormality Neurologic: Speech / Cognition: + abnormal speech (chronic); normal cognition Results & Data Vital Signs (Past 12 Hours) Vital Signs Temp Pulse Resp BP Pulse Ox O2 Del Method 02/22/23 07:55 36.4 C L 83 16 129/74 98 Room Air PG Care Time/CCT Total # of Minutes Spent Total Time Spent with Patient: Total time spent is greater than 50% in coordination of care (as documented) at patient's floor/unit and/or counseling patient: Coding Level of Care Code 02091 SUB INP/OBS CARE MIN Diagnoses End stage renal disease N18.6 Anemia D64.9 Chronic kidney disease-mineral and bone disorder N18.9; E83.9; M89.9 Heel ulceration L97.409
[2023-02-22 12:58] LABS: BUN Creatinine Ratio 5.2 (10-20); Calcium 9.3 mg/dl (8.6-10.3); Creatinine Clr Calc Pharmacy 24.9 ml/min; Est GFR (African American) 24.4 ml/min; Potassium 3.3 mmol/L (3.5-5.1)
--- NOTE | 2023-02-22 17:11 | Hospitalist Progress Note ---
Date of Service February 22, 2023 Assessment & Plan (1) Sepsis: Plan: S/P bilateral heel debridement by Dr Marti 02/18 < 30 ml/kg fluid bolus due to ESRD on dialysis Lactate 4.2 -> 2.5, he is mentating normally, Suspected source right heel ulcer and surrounding cellulitis Blood culture negative after 48 hours Right heel surgical wound culture - bacteroides thetaiotaomicron (unlikely driving infection per ID) Dapto (CK level WNL 02/21) Zosyn switched to cefepime/ flagyl per ID. Patient will need to remain on these antibiotics for course of treatment: 6 weeks. Unable to get PICC line consent today from daughter but will try again tomorrow, no frank to get this as antibiotics will need to be set up on Friday. (2) Acute osteomyelitis of right calcaneus: Plan: s/p b/l heel debridement Dr Marti 02/18: Defer wound care to podiatry and wound care nurse US arterial doppler - left peroneal artery absent flow, will consult vascular surgery - Dr Noel (no coverage for Dr Edmonds today or tomorrow) MRI ankle - reactive osteitis concerning for early osteomyelitis - debridement down to calcaneus per operation note therefore will consult ID for osteomyelitis treatment placed PT/OT orders: weight bearing as tolerated with waffle off loading boots removed as per podiatry. (3) Acute osteomyelitis of left calcaneus: (4) Unstageable pressure ulcer of right heel: (5) Unstageable pressure ulcer of left heel: (6) Left arm weakness: Plan: Reason for last admission. Noted to be improving with rehabilitation. Unclear if he ever had MRI cervical spine but given this is improving will defer on admission. Alternatively may be his rotator cuff. (7) End stage renal disease: Plan: Appreciate ongoing management per nephrology Usually on Friday//Friday dialysis Aim K > 3.0, no need to replace today (8) Type 2 diabetes mellitus with complications: Plan: Appears to be a prior diagnosis as no longer on medication for this. HbA1C 6.4 in November, not accurate in setting of dialysis patient although fasting glucose 98 also not consistent with T2DM (9) Atrial fibrillation, permanent: Plan: Continue apixaban for anticoagulation Rate controlled without AV neal blocking agents, no need for ongoing telemetry at this time Plan VTE Prophylaxis - Eliquis Diet - dialysis renal Disposition - continued admission pending PT/OT, outpatient antibiotics, PICC line Admission and Anticipated Discharge Date Admission Date: February 17, 2023 Subjective No acute concerns from the patient. He denies any chest pain or shortness of breath. No fever or chills. His daughter is POA and he request calling her for PICC consent. Tried calling daughter for consent for PICC line but no answer on number in EHR at this time. Review of Systems Review of Systems: All systems reviewed & are unremarkable except as noted in HPI & below Physical Exam Constitutional: WD/WN, vitals as above Respiratory: normal respiratory effort, lungs clear to auscultation Cardiovascular: Rate/Rhythm: regular rate and + irregularly irregular Heart Sounds: no murmur Gastrointestinal (Abdomen): normal bowel sounds, soft, nontender, no hepatosplenomegaly Skin: surgical dressing in place and in boots b/l Neurologic: moves all extremities and awake; not confused Psychiatric: A+Ox3, euthymic affect Results & Data Results & Data Vital Signs (Past 12 Hours) Vital Signs Temp Pulse Pulse Pulse Resp BP BP 02/22/23 16:03 36.3 C L 78 16 127/73 02/22/23 11:45 36.5 C 89 18 107/70 02/22/23 11:35 36.5 C 92 H 135/80 02/22/23 11:00 84 89/59 L 02/22/23 10:45 84 90/66 L 02/22/23 10:30 94 H 93/64 L 02/22/23 10:15 84 68/52 L 02/22/23 10:00 95 H 85/54 L 02/22/23 09:30 80 128/73 02/22/23 09:17 92 H 157/89 H 02/22/23 09:14 36.6 C 91 H 02/22/23 09:00 02/22/23 07:55 36.4 C L 83 16 129/74 Pulse Ox O2 Del Method 02/22/23 16:03 98 Room Air 02/22/23 11:45 99 Room Air 02/22/23 11:35 02/22/23 11:00 02/22/23 10:45 02/22/23 10:30 02/22/23 10:15 02/22/23 10:00 02/22/23 09:30 02/22/23 09:17 02/22/23 09:14 02/22/23 09:00 Room Air 02/22/23 07:55 98 Room Air Laboratory Results Abnormal lab results 02/22/23 Range/Units 12:22 Potassium 3.3 L (3.5-5.1) mmol/L Creatinine 2.86 H D (0.6-1.4) mg/dl BUN/Creatinine Ratio 5.2 L (10-20) Glucose 102 H (70-99(Fasting)) mg/dl PG Care Time/CCT Total # of Minutes Spent Total Time Spent with Patient: Total time spent is greater than 50% in coordination of care (as documented) at patient's floor/unit and/or counseling patient: Coding Level of Care Code 87506 SUB INP/OBS CARE 2MIN Diagnoses Sepsis A41.9 Acute osteomyelitis of right calcaneus M86.171 Acute osteomyelitis of left calcaneus M86.172 Unstageable pressure ulcer of right heel L89.610 Unstageable pressure ulcer of left heel L89.620 Left arm weakness R29.898 End stage renal disease N18.6 Type 2 diabetes mellitus with complications E11.8 Atrial fibrillation, permanent I48.21
[2023-02-22] MEDS: CEFEPIME 1,000 MG in SYRINGE 0 ML IV SCH (17:53)
[2023-02-22] MEDS: DAPTOmycin 450 MG in SYRINGE 0 ML IV SCH (17:53)
[2023-02-22] MEDS: ATORVASTATIN 10 MG TAB PO SCH (19:45)
--- NOTE | 2023-02-22 22:41 | Vascular Medicine Consultation ---
Date of Consultation February 22, 2023 Assessment & Plan (1) PAD (peripheral artery disease): 2. Bilateral heel ulcers with osteomyelitis 3. ESRD on HD with left upper extremity fistula post recent revision 4. Type 2 diabetes 5. Permanent atrial fibrillation 6. Prior acute CVA with residual deficits, nonambulatory status 7. Carotid artery disease post left CEA 8. Orthostatic hypotension Patient with 2+ PT pulses and palpable DP pulses bilaterally. Reviewed patient's recent arterial duplex. Has no evidence of significant obstructive disease and has multiphasic waveforms in bilateral arterial systems extending below the knee. Does appear to have some tibial vessel disease but NEVILLE/INSERTING OPERATOR wid koby patent to the ankle. Overall patient appears to have adequate perfusion to heal current pressure ulcers. Do not feel needs further invasive testing/revascularization at this time. No change to current ASCVD risk factor modification. Continued care with ID/podiatry and wound care. Long-term he can follow-up with Dr. Edmonds for his ongoing vascular care. Follows with Dr. Amato for his cardiac care. History of Present Illness Attending Physician: Rickey Moran MD History of Present Illness Mr. Blue is a very pleasant 72-year-old man with end-stage renal disease on dialysis, type 2 diabetes seen today for suspected lower extremity PAD in the s etting of bilateral heel ulcers with osteomyelitis. Prior left upper extremity fistula and recent stenting 12/[address] Edmonds. Prior acute ischemic stroke 10/2021 post left carotid endarterectomy at [facility]. He has a history of permanent atrial fibrillation, moderate mitral regurgitation, pulmonary hypertension followed by Dr. Amato. Patient has basically been basically nonambulatory since his stroke and endorses progressive lower extremity weakness over months with multiple recent hospitalizations and rehab stays. Seen by podiatry on admission and underwent surgical debridement of heel ulcers 02/18/2023. ID following and plan to treat for polymicrobial infection for 6 weeks. Arterial duplex 01/2023: Widely patent bilateral lower extremity arterial system with 50 to 74% stenosis with and right INSERTING OPERATOR. Absent flow and left peroneal. Social history: Currently lives with family. Previously worked for [employer]. Never smoker. Allergies Allergy/AdvReac Type Severity Reaction Status Date / Time amlodipine AdvReac Severe FLU Verified 01/08/23 22:00 [facility] Home Medications Medication Instructions Recorded Confirmed Type lidocaine-prilocaine 2.5 %-2.5 % 1 applic topical DIRECTED 08/17/20 02/17/23 History topical cream vit B complx, C-iron 8 mg-folic 1 tab PO DAILY 08/17/20 02/17/23 History acid 800 mcg-D3 1,000 unit-zinc tablet (ProRenal) clopidogrel 75 mg tablet 75 mg PO DAILY 02/13/22 02/17/23 History folic acid 1 mg tablet 2 mg PO DAILY 02/13/22 02/17/23 History sevelamer carbonate 800 mg tablet 800 mg PO TID 02/13/22 02/17/23 History apixaban 5 mg tablet (Eliquis) 5 mg PO BID #60 tabs 08/12/22 02/17/23 Rx fludrocortisone 0.1 mg tablet 0.1 mg PO DAILY #90 tabs 11/08/22 02/17/23 Rx acetaminophen 650 mg 1,300 mg PO DAILY PRN Pain 12/17/22 02/17/23 History tablet,extended release atorvastatin 10 mg tablet 10 mg PO HS 02/17/23 02/17/23 History midodrine 5 mg tablet 5 mg PO TID PRN low BP 02/17/23 02/17/23 History Patient History Medical History (Updated 02/22/23 @ 22:54 by Karthik Noel MD) CVA (cerebral vascular accident) End stage renal disease Carotid arterial disease Orthostatic hypotension Atrial fibrillation, permanent Fistula left arm Diabetes type 2, controlled ESRD (end stage renal disease) on dialysis Hyperlipidemia Hypertension Presence of arteriovenous fistula for hemodialysis, primary Surgical History S/P carotid endarterectomy History of tooth extraction History of surgery on arm Family History Mother , age 65 of cancer -uncertain type Cancer Father , in his 50s of cancer Stomach cancer Esophagus cancer Cancer Cancer of bowel Sister Kidney stone Social History Smoking Status: Never smoker Second Hand Exposure: No; Do You Dip or Chew Tobacco: No; Hx Alcohol Use: No Hx Substance Use: No Preferred Language: Bangladeshi Communication Ability: Effective Campus Administrative Assistant Required: Yes Beliefs That Will Affect Care: None marital status: Current Living Situation: Family Current Living Situation Comment: daughter lives w/ patient current occupational status: retired current occupation: retired age 64 from [employer] Feels Safe at Home: Yes Assistive Devices: Hospital Bed, Walker and Wheelchair Review of Systems Review of Systems: All systems reviewed & are unremarkable except as noted in HPI & below Physical Exam Physical Exam: General: Comfortable, no acute distress Eyes: Sclerae anicteric Neck: Normal carotid upstrokes, no bruits. Lungs: Clear to auscultation anteriorly Cardiac: Irregular irregular, no murmurs Abdomen: Soft, nontender Neuro: Nonfocal Psych: Alert orient x3, normal affect and mood Extremities/Vascular: -- 2+ radial on right. Fistula in place on left -- 2+ popliteal bilaterally -- 2 + PT pulses bilaterally. 1+ DP pulses left >right. Sluggish capillary refill -- No edema -- Dressing in place no surrounding erythema/induration or drainage Results & Data Vital Signs (Past 12 Hours) Vital Signs Temp Pulse Pulse Pulse Resp BP BP 02/22/23 21:07 97.5 F L 72 18 119/68 02/22/23 16:03 97.3 F L 78 16 127/73 02/22/23 11:45 97.7 F 89 18 107/70 02/22/23 11:35 97.7 F 92 H 135/80 02/22/23 11:00 84 89/59 L 02/22/23 10:45 84 90/66 L Pulse Ox O2 Del Method 02/22/23 21:07 98 Room Air 02/22/23 16:03 98 Room Air 02/22/23 11:45 99 Room Air 02/22/23 11:35 02/22/23 11:00 02/22/23 10:45 PG Care Time/CCT Total # of Minutes Spent Total Time Spent with Patient: Total time spent is greater than 50% in coordination of care (as documented) at patient's floor/unit and/or counseling patient: Coding Level of Care Code 98460 INT INP/OBS CARE 2/55MIN Diagnoses PAD (peripheral artery disease) I73.9
[2023-02-23] MEDS: MIDODRINE HCL 2.5 MG TAB PO SCH ×2 (06:14→12:00)
[2023-02-23] MEDS: APIXABAN 5 MG TABLET PO SCH ×2 (07:54→20:19)
[2023-02-23] MEDS: ACETAMINOPHEN 500 MG TAB PO SCH ×3 (07:54→20:19)
[2023-02-23] MEDS: ADVANCED PROBIOTIC 1250 MG CAPSULE PO SCH (07:55)
[2023-02-23] MEDS: CLOPIDOGREL BISULFATE 75 MG TAB PO SCH (07:55)
[2023-02-23] MEDS: FOLIC ACID 1 MG TAB PO SCH (07:55)
[2023-02-23] MEDS: metroNIDAZOLE 500 MG TAB PO SCH ×2 (07:55→20:18)
[2023-02-23] MEDS: FLUDROCORTISONE ACETATE 0.1 MG TAB PO SCH (07:55)
[2023-02-23] MEDS: SEVELAMER HCL 800 MG TABLET PO SCH ×3 (09:02→17:02)
[2023-02-23 09:03] LABS: Hematocrit (blood only) 36.3 % (42.0-52.0); Hemoglobin 11.3 g/dl (14.0-18.0); Mean Corpuscular Hemoglobin 30.4 pg (25.0-34.0); Mean Corpuscular Hgb Conc 31.1 g/dL (32.0-36.0); Mean Corpuscular Volume 97.6 fL (80.0-100.0); Mean Platelet Volume 9.7 fL (9.4-12.4); Platelet Count 264 K/uL (130-400); RDW Standard Deviation 50.1 fL (36.4-46.3); Red Blood Count 3.72 M/uL (4.70-6.10); White Blood Count 8.17 K/ul (4.8-10.8)
[2023-02-23] MEDS: NEPHROCAPS PO SCH (09:03)
--- NOTE | 2023-02-23 09:13 | Nephrology Progress Note ---
Date of Service February 23, 2023 Assessment & Plan (1) End stage renal disease: Plan: * ESKD due to DKD * Outpatient HD Rx: [facility], TTS, 3.5 hours, 180 optiflux, 450/800, 3K, 2.5 calcium. EDW 97 kg. * Volume status and electrolyte balance are currently acceptable. No acute indication for HD today. Will plan next HD for Friday (2) Anemia: Plan: * LA therapy held with Hgb >10. Maintained on Micera as outpatient. (3) Chronic kidney disease-mineral and bone disorder: Plan: * Continue sevelamer QAC. (4) Heel ulceration: Plan: * s/p debridement by Dr. Marti 02/19/23 * Remains on Daptomycin, Cefepime and Flagyl * Recommend monitoring weekly CK while on Daptomycin therapy (02/21/23 CPK 49) * Will need PICC line for termite technician antibiotic therapy * 02/22/23 Vascular Medicine Consultation reviewed: palpable DP/PT pulses with multiphasic waveform. No intervention recommended. Await further input from Podiatry Admission and Anticipated Discharge Date Admission Date: February 17, 2023 Subjective Mr. Blue was evaluated in his hospital room this morning. He denied fever, angina, dyspnea or uremic symptoms. He was dialyzed yesterday for 2 hours with 1L UF. He is breathing comfortably on RA Review of Systems Constitutional: no fever Eyes: no problem reported Ear, Nose, Mouth, Throat: no problem reported Respiratory: no cough and no dyspnea Cardiovascular: no chest pain Gastrointestinal: no nausea, no vomiting and no diarrhea/loose stools Integumentary: no rash Physical Exam Constitutional: not in distress Eyes: PERRL, conjunctivae normal, anicteric sclerae ENMT: external ear and nose normal, oropharynx normal Neck: trachea midline, no thyromegaly Respiratory: normal respiratory effort, lungs clear to auscultation Cardiovascular: RRR, no murmur, no edema Extremities: + AV fistula (+ bruit ) Gastrointestinal (Abdomen): normal bowel sounds, soft, nontender, no hepatosplenomegaly Musculoskeletal: Extremities: + foot abnormality (both feet are wrapped w/ clean, dry dressing) Bilateral Neurologic: Speech / Cognition: + abnormal speech (chronic); normal cognition Results & Data Vital Signs (Past 12 Hours) Vital Signs Temp Pulse Resp BP Pulse Ox O2 Del Method 02/23/23 06:59 36.3 C L 91 H 18 127/75 97 Room Air Laboratory Results Laboratory Results - last 24 hr 02/22/23 02/23/23 12:22 08:20 WBC 8.17 RBC 3.72 L Hgb 11.3 L Hct 36.3 L MCV 97.6 MCH 30.4 MCHC 31.1 L RDW Std Deviation 50.1 H RDW Coeff of Mukul 14.0 Plt Count 264 MPV 9.7 Sodium 140 139 Potassium 3.3 L 3.4 L Chloride 102 104 Carbon Dioxide 28 25 Anion Gap 10 10 BUN 15 D 34 H Creatinine 2.86 H D 4.72 H* D Est Cr Clr Drug Dosing 24.9 15.1 Est GFR ( Amer) 24.4 13.3 Est GFR (Non-Af Amer) 21.0 11.5 BUN/Creatinine Ratio 5.2 L 7.2 L Glucose 102 H 157 H Calcium 9.3 9.6 PG Care Time/CCT Total # of Minutes Spent Total Time Spent with Patient: Total time spent is greater than 50% in coordination of care (as documented) at patient's floor/unit and/or counseling patient: Coding Level of Care Code 55639 SUB INP/OBS CARE 3/50MIN Diagnoses End stage renal disease N18.6 Anemia D64.9 Chronic kidney disease-mineral and bone disorder N18.9; E83.9; M89.9 Heel ulceration L97.409
[2023-02-23 09:34] LABS: BUN Creatinine Ratio 7.2 (10-20); Calcium 9.6 mg/dl (8.6-10.3); Creatinine Clr Calc Pharmacy 15.1 ml/min; Est GFR (African American) 13.3 ml/min; Est GFR (Non-African American) 11.5 ml/min; Potassium 3.4 mmol/L (3.5-5.1)
--- NOTE | 2023-02-23 16:05 | Hospitalist Progress Note ---
Date of Service February 23, 2023 Assessment & Plan (1) Sepsis: Plan: S/P bilateral heel debridement by Dr Marti 02/18 < 30 ml/kg fluid bolus due to ESRD on dialysis Lactate 4.2 -> 2.5, he is mentating normally, Suspected source right heel ulcer and surrounding cellulitis Blood culture negative after 48 hours Right heel surgical wound culture - bacteroides thetaiotaomicron (unlikely driving infection per ID) Dapto (CK level WNL 02/21) Zosyn switched to cefepime/ flagyl per ID. Patient will need to remain on these antibiotics for course of treatment: 6 weeks. PICC line consent signed and ordered. Once antibiotics set up patient is medically stable for discharge. (2) Acute osteomyelitis of right calcaneus: Plan: s/p b/l heel debridement Dr Marti 02/18: Defer wound care to podiatry and wound care nurse US arterial doppler - left peroneal artery absent flow, will consult vascular surgery - Dr Noel (no coverage for Dr Edmonds today or tomorrow) MRI ankle - reactive osteitis concerning for early osteomyelitis - debridement down to calcaneus per operation note therefore will consult ID for osteomyelitis treatment placed PT/OT orders: weight bearing as tolerated with waffle off loading boots removed as per podiatry. (3) Acute osteomyelitis of left calcaneus: (4) Unstageable pressure ulcer of right heel: (5) Unstageable pressure ulcer of left heel: (6) Left arm weakness: Plan: Reason for last admission. Noted to be improving with rehabilitation. Unclear if he ever had MRI cervical spine but given this is improving will defer on admission. Alternatively may be his rotator cuff. (7) End stage renal disease: Plan: Appreciate ongoing management per nephrology Usually on Friday//Friday dialysis Aim K > 3.0, no need to replace today (8) Type 2 diabetes mellitus with complications: Plan: Appears to be a prior diagnosis as no longer on medication for this. HbA1C 6.4 in November, not accurate in setting of dialysis patient although fasting glucose 98 also not consistent with T2DM (9) Atrial fibrillation, permanent: Plan: Continue apixaban for anticoagulation Rate controlled without AV neal blocking agents, no need for ongoing telemetry at this time Plan VTE Prophylaxis - Eliquis Diet - dialysis renal Disposition - continued admission pending PT/OT, outpatient antibiotics, PICC line Admission and Anticipated Discharge Date Admission Date: February 17, 2023 Subjective No acute concerns or questions from the patient. PICC line consent signed with daughter per patient request in the room Review of Systems Review of Systems: All systems reviewed & are unremarkable except as noted in HPI & below Physical Exam Constitutional: WD/WN, vitals as above Respiratory: normal respiratory effort, lungs clear to auscultation Cardiovascular: Rate/Rhythm: regular rate and + irregularly irregular Heart Sounds: no murmur Gastrointestinal (Abdomen): normal bowel sounds, soft, nontender, no hepatosplenomegaly Neurologic: moves all extremities and awake; not confused Psychiatric: A+Ox3, euthymic affect Results & Data Results & Data Vital Signs (Past 12 Hours) Vital Signs Temp Pulse Resp BP Pulse Ox O2 Del Method 02/23/23 15:11 36.4 C L 66 18 155/68 H 99 Room Air 02/23/23 12:01 120/68 02/23/23 08:30 Room Air 02/23/23 06:59 36.3 C L 91 H 18 127/75 97 Room Air Laboratory Results Abnormal lab results 02/23/23 Range/Units 08:20 RBC 3.72 L (4.70-6.10) M/uL Hgb 11.3 L (14.0-18.0) g/dl Hct 36.3 L (42.0-52.0) % MCHC 31.1 L (32.0-36.0) g/dL RDW Std Deviation 50.1 H (36.4-46.3) fL Potassium 3.4 L (3.5-5.1) mmol/L BUN 34 H (6-23) mg/dl Creatinine 4.72 H* D (0.6-1.4) mg/dl BUN/Creatinine Ratio 7.2 L (10-20) Glucose 157 H (70-99(Fasting)) mg/dl PG Care Time/CCT Total # of Minutes Spent Total Time Spent with Patient: Total time spent is greater than 50% in coordination of care (as documented) at patient's floor/unit and/or counseling patient: Coding Level of Care Code 26140 SUB INP/OBS CARE 2/35MIN Diagnoses Sepsis A41.9 Acute osteomyelitis of right calcaneus M86.171 Acute osteomyelitis of left calcaneus M86.172 Unstageable pressure ulcer of right heel L89.610 Unstageable pressure ulcer of left heel L89.620 Left arm weakness R29.898 End stage renal disease N18.6 Type 2 diabetes mellitus with complications E11.8 Atrial fibrillation, permanent I48.21
[2023-02-23] MEDS ORDERED: MIDODRINE HCL 2.5 MG TAB PO PRN (16:06)
--- NOTE | 2023-02-23 18:01 | XRay Report ---
XR chest 1V portable CLINICAL HISTORY: right PICC tip placement TECHNIQUE: Single frontal radiograph of the chest was obtained. Comparison: Comparison is made to chest radiograph 02/17/2023 FINDINGS: A PICC has been placed with the tip at the cavoatrial junction. Calcified aortic knob is seen. The toña ngs are clear. No evidence of pleural effusion or pneumothorax. IMPRESSION: Interval placement of a PICC with its tip in satisfactory position. No pneumothorax. ACT 112: Negative or not required by law. Electronically signed by: Danny Blank M.D. 02/23/2023 5:59 PM
[2023-02-23] MEDS: CEFEPIME 1,000 MG in SYRINGE 0 ML IV SCH (18:14)
[2023-02-23] MEDS: ATORVASTATIN 10 MG TAB PO SCH (20:18)
[2023-02-24 07:28] LABS: Hematocrit (blood only) 33.1 % (42.0-52.0); Hemoglobin 10.7 g/dl (14.0-18.0); Mean Corpuscular Hemoglobin 30.8 pg (25.0-34.0); Mean Corpuscular Hgb Conc 32.3 g/dL (32.0-36.0); Mean Corpuscular Volume 95.4 fL (80.0-100.0); Mean Platelet Volume 9.9 fL (9.4-12.4); Platelet Count 251 K/uL (130-400); RDW Coefficient of Variation 13.9 % (11.5-14.5); RDW Standard Deviation 48.3 fL (36.4-46.3); Red Blood Count 3.47 M/uL (4.70-6.10); White Blood Count 7.92 K/ul (4.8-10.8)
[2023-02-24 07:48] LABS: Calcium 9.6 mg/dl (8.6-10.3); Est GFR (African American) 10.1 ml/min; Est GFR (Non-African American) 8.7 ml/min; Potassium 3.5 mmol/L (3.5-5.1)
--- NOTE | 2023-02-24 08:39 | Nephrology Progress Note ---
Date of Service February 24, 2023 Assessment & Plan (1) End stage renal disease: Plan: * ESKD due to DKD * Outpatient HD Rx: [facility], TTS, 3.5 hours, 180 optiflux, 450/800, 3K, 2.5 calcium. EDW 97 kg. * Volume status and electrolyte balance are currently acceptable. No acute indication for HD today. Will plan next HD for Friday (2) Anemia: Plan: * LA therapy held with Hgb >10. Maintained on Micera as outpatient. (3) Chronic kidney disease-mineral and bone disorder: Plan: * Continue sevelamer QAC. (4) Heel ulceration: Plan: * s/p debridement by Dr. Marti 02/19/23 * Remains on Daptomycin, Cefepime and Flagyl * Recommend monitoring weekly CK while on Daptomycin therapy (02/21/23 CPK 49) * Will need PICC line for terminologist antibiotic therapy * 02/22/23 Vascular Medicine Consultation reviewed: palpable DP/PT pulses with multiphasic waveform. No intervention recommended. * Await further input from Podiatry Admission and Anticipated Discharge Date Admission Date: February 17, 2023 Subjective Mr. Blue was evaluated in his hospital room this morning. He denied fever, angina, dyspnea or uremic symptoms. He voiced no new medical concerns Review of Systems Constitutional: no fever Eyes: no problem reported Ear, Nose, Mouth, Throat: no problem reported Respiratory: no cough and no dyspnea Cardiovascular: no chest pain Gastrointestinal: no nausea, no vomiting and no diarrhea/loose stools Integumentary: no rash Physical Exam Constitutional: not in distress Eyes: PERRL, conjunctivae normal, anicteric sclerae ENMT: external ear and nose normal, oropharynx normal Neck: trachea midline, no thyromegaly Respiratory: normal respiratory effort, lungs clear to auscultation Cardiovascular: RRR, no murmur, no edema Extremities: + AV fistula (+ bruit) Gastrointestinal (Abdomen): normal bowel sounds, soft, nontender, no hepatosplenomegaly Musculoskeletal: Extremities: + foot abnormality (both feet are wrapped w/ clean, dry dressing) Neurologic: Speech / Cognition: + abnormal speech (chronic); normal cognition Results & Data Vital Signs (Past 12 Hours) Vital Signs Temp Pulse Resp BP Pulse Ox O2 Del Method 02/24/23 08:03 36.4 C L 86 16 113/52 L 94 Room Air Laboratory Results Laboratory Results - last 24 hr 02/23/23 02/24/23 08:20 06:20 WBC 8.17 7.92 RBC 3.72 L 3.47 L Hgb 11.3 L 10.7 L Hct 36.3 L 33.1 L MCV 97.6 95.4 MCH 30.4 30.8 MCHC 31.1 L 32.3 RDW Std Deviation 50.1 H 48.3 H RDW Coeff of Mukul 14.0 13.9 Plt Count 264 251 MPV 9.7 9.9 Sodium 139 139 Potassium 3.4 L 3.5 Chloride 104 106 Carbon Dioxide 25 23 Anion Gap 10 10 BUN 34 H 47 H Creatinine 4.72 H* D 5.91 H* D Est Cr Clr Drug Dosing 15.1 12.0 Est GFR ( Amer) 13.3 10.1 Est GFR (Non-Af Amer) 11.5 8.7 BUN/Creatinine Ratio 7.2 L 8.0 L Glucose 157 H 117 H Calcium 9.6 9.6 Diagnostic Findings Laboratory Results - last 24 hr 02/24/23 06:20 WBC 7.92 RBC 3.47 L Hgb 10.7 L Hct 33.1 L MCV 95.4 MCH 30.8 MCHC 32.3 RDW Std Deviation 48.3 H RDW Coeff of Mukul 13.9 Plt Count 251 MPV 9.9 Sodium 139 Potassium 3.5 Chloride 106 Carbon Dioxide 23 Anion Gap 10 BUN 47 H Creatinine 5.91 H* D Est Cr Clr Drug Dosing 12.0 Est GFR ( Amer) 10.1 Est GFR (Non-Af Amer) 8.7 BUN/Creatinine Ratio 8.0 L Glucose 117 H Calcium 9.6 PG Care Time/CCT Total # of Minutes Spent Total Time Spent with Patient: Total time spent is greater than 50% in coordination of care (as documented) at patient's floor/unit and/or counseling patient: Coding Level of Care Code 39823 SUB INP/OBS CARE 3/50MIN Diagnoses End stage renal disease N18.6 Anemia D64.9 Chronic kidney disease-mineral and bone disorder N18.9; E83.9; M89.9 Heel ulceration L97.409
[2023-02-24] MEDS: ACETAMINOPHEN 500 MG TAB PO SCH ×3 (09:01→21:04)
[2023-02-24] MEDS: CLOPIDOGREL BISULFATE 75 MG TAB PO SCH (09:02)
[2023-02-24] MEDS: SEVELAMER HCL 800 MG TABLET PO SCH ×3 (09:02→17:44)
[2023-02-24] MEDS: APIXABAN 5 MG TABLET PO SCH ×2 (09:02→20:49)
[2023-02-24] MEDS: FLUDROCORTISONE ACETATE 0.1 MG TAB PO SCH (09:02)
[2023-02-24] MEDS: FOLIC ACID 1 MG TAB PO SCH (09:03)
[2023-02-24] MEDS: metroNIDAZOLE 500 MG TAB PO SCH ×2 (09:03→20:49)
[2023-02-24] MEDS: NEPHROCAPS PO SCH (09:03)
[2023-02-24] MEDS: ADVANCED PROBIOTIC 1250 MG CAPSULE PO SCH (09:04)
--- NOTE | 2023-02-24 09:05 | Hospitalist Progress Note ---
Date of Service February 24, 2023 Assessment & Plan (1) Sepsis: Plan: S/P bilateral heel debridement by Dr Marti 02/18 Suspected source right heel ulcer and surrounding cellulitis Blood culture negative after 48 hours Right heel surgical wound culture - bacteroides thetaiotaomicron (unlikely driving infection per ID) Dapto (CK level WNL 02/21) Zosyn switched to cefepime/ flagyl per ID. Infectious disease recommendation Continue daptomycin 450 mg IV Q48H (renally dosed for HD pt) to complete a 6-week course (02/18/23 04/01/23) - Start cefepime 1g IV Q24H (post-HD on HD days) to complete a 6-week course (02/18/23 04/01/23) - Start metronidazole 500 mg PO BID to complete a 2-week course (02/18/23- 03/03/23) (2) Acute osteomyelitis of right calcaneus: Plan: s/p b/l heel debridement Dr Marti 02/18: Defer wound care to podiatry and wound care nurse US arterial doppler - left peroneal artery absent flow, will consult vascular surgery - Dr Noel no evidence of significant obstructive disease and has multiphasic waveforms in bilateral arterial systems extending below the knee. Does appear to have some tibial vessel disease but NEVILLE/GARDEN CONSULTANT widely patent to the ankle. Patient appears to have adequate perfusion to heal current pressure ulcers MRI ankle - reactive osteitis concerning for early osteomyelitis - debridement down to calcaneus per operation note placed PT/OT orders: weight bearing as tolerated with waffle off loading boots removed as per podiatry. (3) Acute osteomyelitis of left calcaneus: (4) Left arm weakness: Plan: Reason for last admission. Noted to be improving with rehabilitation. Unclear if he ever had MRI cervical spine but given this is improving will defer on admission. Alternatively may be his rotator cuff. 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 HbA1C 6.4 in November, not accurate in setting of dialysis patient although fasting glucose 98 also not consistent with T2DM (7) Unstageable pressure ulcer of left heel: (8) Atrial fibrillation, permanent: Plan: Continue apixaban for anticoagulation Rate controlled without AV neal blocking agents, no need for ongoing telemetry at this time (9) Unstageable pressure ulcer of right heel: Plan VTE Prophylaxis - Eliquis Diet - dialysis renal Disposition - Consideration of for administration of antibiotics Admission and Anticipated Discharge Date Admission Date: February 17, 2023 Subjective Pt was seen in the presence of his daughter Disposition is issue with ID recommending 6 weeks of antibiotics, two of which are IV, pt does not have good home health coverage and cannot afford the out of pocket expense, family maybe able to bring pt in daily but would need to be after 230, family is considering to have antibiotics, wound care and dialysis Physical Exam Physical Exam: pt is in no distress, legs are dressed with bandages no immediate complaints Results & Data Results & Data Vital Signs (Past 12 Hours) Vital Signs Temp Pulse Resp BP Pulse Ox O2 Del Method 02/24/23 08:03 97.5 F L 86 16 113/52 L 94 Room Air Laboratory Results reviewed CBC reviewed chemistry, PG Care Time/CCT Total # of Minutes Spent Total Time Spent with Patient: Total time spent is greater than 50% in coordination of care (as documented) at patient's floor/unit and/or counseling patient: Coding Level of Care Code 65829 SUB INP/OBS CARE 2/35MIN Diagnoses Sepsis A41.9 Acute osteomyelitis of right calcaneus M86.171 Acute osteomyelitis of left calcaneus M86.172 Left arm weakness R29.898 End stage renal disease N18.6 Type 2 diabetes mellitus with complications E11.8 Unstageable pressure ulcer of left heel L89.620 Atrial fibrillation, permanent I48.21 Unstageable pressure ulcer of right heel L89.610
[2023-02-24] MEDS: DAPTOmycin 450 MG in SYRINGE 0 ML IV SCH (17:45)
[2023-02-24] MEDS: CEFEPIME 1,000 MG in SYRINGE 0 ML IV SCH (17:45)
--- NOTE | 2023-02-24 20:32 | Orthopedic Progress Note ---
Date of Service February 24, 2023 Assessment & Plan (1) Unstageable pressure ulcer of right heel: Plan: Patient seen and evaluated. Dry, sterile dressing change without incident. adaptic, 4x4, abd, kerlix, waffle boots. A stable dry eschar is noted over right heel wound. Patient to utilize off loading waffle boots while at rest supine. Patient is weight bearing as tolerated with waffle off loading boots removed. Will continue to follow while in house. Thank you for allowing me to participate in the care of this Patient. (2) Unstageable pressure ulcer of left heel: (3) Nonhealing wound of heel: (4) Sepsis: Admission and Anticipated Discharge Date Admission Date: February 17, 2023 Subjective Pt was seen at bedside for bilateral heel wounds. He requires 6 weeks of antibiotics, two of which are IV, pt does not have good home health coverage per patient. Options are being reviewed. Review of Systems Review of Systems: All systems reviewed & are unremarkable except as noted in Subjective Physical Exam Constitutional: cooperative and comfortable Eyes: normal visual farfan by confrontation Neck: normal visual inspection and trachea midline Respiratory: normal respiratory effort Cardiovascular: Vessels: posterior tibial pulses present and dorsalis pedis pulses present Skin: + ulcer (Bilateral retrocalcaneal heel w ounds full thickness with developing eschar) Results & Data Vital Signs (Past 12 Hours) Vital Signs Temp Pulse Resp BP Pulse Ox O2 Del Method 02/24/23 15:51 36.8 C 69 18 121/67 97 Room Air 02/24/23 09:00 Room Air
[2023-02-24] MEDS: ATORVASTATIN 10 MG TAB PO SCH (20:49)
[2023-02-25] MEDS ORDERED: SODIUM CHLORIDE 0.9% 1,000 ML IV PRN (07:00)
[2023-02-25] MEDS: metroNIDAZOLE 500 MG TAB PO SCH ×2 (08:06→21:18)
[2023-02-25] MEDS: NEPHROCAPS PO SCH (08:07)
[2023-02-25] MEDS: CLOPIDOGREL BISULFATE 75 MG TAB PO SCH (08:07)
[2023-02-25] MEDS: ACETAMINOPHEN 500 MG TAB PO SCH ×3 (08:07→21:18)
[2023-02-25] MEDS: ADVANCED PROBIOTIC 1250 MG CAPSULE PO SCH (08:07)
[2023-02-25] MEDS: SEVELAMER HCL 800 MG TABLET PO SCH ×3 (08:07→18:02)
[2023-02-25] MEDS: FLUDROCORTISONE ACETATE 0.1 MG TAB PO SCH (08:08)
[2023-02-25] MEDS: FOLIC ACID 1 MG TAB PO SCH (08:08)
[2023-02-25] MEDS: APIXABAN 5 MG TABLET PO SCH ×2 (08:08→21:19)
--- NOTE | 2023-02-25 08:40 | Nephrology Progress Note ---
Date of Service February 25, 2023 Assessment & Plan (1) End stage renal disease: Plan: * ESKD due to DKD * Outpatient HD Rx: [facility], TTS, 3.5 hours, 180 optiflux, 450/800, 3K, 2.5 calcium. EDW 97 kg. * Will provide HD today. Orders have been entered into the EMR and HD RN notified (2) Anemia: Plan: * LA therapy held with Hgb >10. Maintained on Micera as outpatient. (3) Chronic kidney disease-mineral and bone disorder: Plan: * Continue sevelamer QAC. (4) Heel ulceration: Plan: * s/p debridement by Dr. Marti 02/19/23 * Remains on Daptomycin, Cefepime and Flagyl * Recommend monitoring weekly CK while on Daptomycin therapy (02/25/23 CPK 53) * Will need PICC line for terminal operations supervisor antibiotic therapy * 02/22/23 Vascular Medicine Consultation reviewed: palpable DP/PT pulses with multiphasic waveform. No intervention recommended. * Will need 2 weeks IV followed by 4 weeks oral antibiotic therapy for a total of 6 weeks Admission and Anticipated Discharge Date Admission Date: February 17, 2023 Subjective Mr. Blue was evaluated in his hospital room this morning. He was awaiting dialysis. Mr. Blue voiced no new medical concerns. He notes that he will require at least 2 weeks of IV antibiotics and expects to transfer back to [facility] Review of Systems Constitutional: no fever Eyes: no problem reported Ear, Nose, Mouth, Throat: no problem reported Respiratory: no cough and no dyspnea Cardiovascular: no chest pain Gastrointestinal: no nausea, no vomiting and no diarrhea/loose stools Integumentary: no rash Physical Exam Constitutional: not in distress Eyes: PERRL, conjunctivae normal, anicteric sclerae ENMT: external ear and nose normal, oropharynx normal Neck: trachea midline, no thyromegaly Respiratory: normal respiratory effort, lungs clear to auscultation Cardiovascular: RRR, no murmur, no edema Extremities: + AV fistula (+ bruit) Gastrointestinal (Abdomen): normal bowel sounds, soft, nontender, no hepatosplenomegaly Musculoskeletal: Extremities: + foot abnormality (both feet are wrapped w/ clean, dry dressing) Neurologic: Speech / Cognition: + abnormal speech (chronic); normal cognition Results & Data Vital Signs (Past 12 Hours) Vital Signs Temp Pulse Pulse Resp BP Pulse Ox O2 Del Method 02/25/23 07:51 36.4 C L 83 16 124/69 97 Room Air 02/24/23 20:47 36.8 C 92 H 20 144/79 H 98 Room Air Laboratory Results Laboratory Results - last 24 hr 02/25/23 05:56 Total Creatine Kinase 53 PG Care Time/CCT Total # of Minutes Spent Total Time Spent with Patient: Total time spent is greater than 50% in coordination of care (as documented) at patient's floor/unit and/or counseling patient: Coding Level of Care Code 39640 SUB INP/OBS CARE 3/50MIN Diagnoses End stage renal disease N18.6 Anemia D64.9 Chronic kidney disease-mineral and bone disorder N18.9; E83.9; M89.9 Heel ulceration L97.409
--- NOTE | 2023-02-25 18:03 | Hospitalist Progress Note ---
Date of Service February 25, 2023 Assessment & Plan (1) Sepsis: Plan: S/P bilateral heel debridement by Dr Marti 02/18 Suspected source right heel ulcer and surrounding cellulitis Blood culture negative after 48 hours Right heel surgical wound culture - bacteroides thetaiotaomicron (unlikely driving infection per ID) Dapto (CK level WNL 02/21) Zosyn switched to cefepime/ flagyl per ID. Infectious disease recommendation Continue daptomycin 450 mg IV Q48H (renally dosed for HD pt) to complete a 6-week course (02/18/23 04/01/23) - Start cefepime 1g IV Q24H (post-HD on HD days) to complete a 6-week course (02/18/23 04/01/23) - Start metronidazole 500 mg PO BID to complete a 2-week course (02/18/23- 03/03/23) (2) Acute osteomyelitis of right calcaneus: Plan: s/p b/l heel debridement Dr Marti 02/18: Defer wound care to podiatry and wound care nurse US arterial doppler - left peroneal artery absent flow, will consult vascular surgery - Dr Noel no evidence of significant obstructive disease and has multiphasic waveforms in bilateral arterial systems extending below the knee. Does appear to have some tibial vessel disease but NEVILLE/SPLICER OPERATOR widely patent to the ankle. Patient appears to have adequate perfusion to heal current pressure ulcers MRI ankle - reactive osteitis concerning for early osteomyelitis - debridement down to calcaneus per operation note placed PT/OT orders: weight bearing as tolerated with waffle off loading boots removed as per podiatry. (3) Acute osteomyelitis of left calcaneus: (4) Left arm weakness: Plan: Reason for last admission. Noted to be improving with rehabilitation. Unclear if he ever had MRI cervical spine but given this is improving will defer on admission. Alternatively may be his rotator cuff. 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 HbA1C 6.4 in November, not accurate in setting of dialysis patient although fasting glucose 98 also not consistent with T2DM (7) Unstageable pressure ulcer of left heel: (8) Atrial fibrillation, permanent: Plan: Continue apixaban for anticoagulation Rate controlled without AV neal blocking agents, no need for ongoing telemetry at this time (9) Unstageable pressure ulcer of right heel: Plan VTE Prophylaxis - Eliquis Diet - dialysis renal Disposition - Consideration of [facility] for administration of antibiotics Admission and Anticipated Discharge Date Admission Date: February 17, 2023 Subjective Mr. Blue was evaluated in dialysis init just finished dialysis. No new complaints. not thrilled but endorsing acceptance for snf for abtx iv Physical Exam Physical Exam: pt is in no distress, legs are dressed with bandages no immediate complaints Results & Data Results & Data Vital Signs (Past 12 Hours) Vital Signs Temp Pulse Pulse Pulse Resp BP BP 02/25/23 14:09 97.9 F 95 H 16 140/69 02/25/23 13:25 98.2 F 67 166/67 H 02/25/23 12:53 84 84/59 L 02/25/23 12:36 92 H 118/66 02/25/23 12:30 97 H 76/33 L 02/25/23 12:19 94 H 73/39 L 02/25/23 11:42 47 L 102/58 L 02/25/23 11:30 90 155/50 H 02/25/23 11:00 94 H 117/48 L 02/25/23 10:30 89 126/50 L 02/25/23 10:15 97 H 135/26 L 02/25/23 10:00 88 102/46 L 02/25/23 09:30 84 82/46 L 02/25/23 09:03 89 147/53 H 02/25/23 08:54 97.5 F L 95 H 02/25/23 08:30 02/25/23 07:51 97.5 F L 83 16 124/69 Pulse Ox O2 Del Method 02/25/23 14:09 96 Room Air 02/25/23 13:25 02/25/23 12:53 02/25/23 12:36 02/25/23 12:30 02/25/23 12:19 02/25/23 11:42 02/25/23 11:30 02/25/23 11:00 02/25/23 10:30 02/25/23 10:15 02/25/23 10:00 02/25/23 09:30 02/25/23 09:03 02/25/23 08:54 02/25/23 08:30 Room Air 02/25/23 07:51 97 Room Air PG Care Time/CCT Total # of Minutes Spent Total Time Spent with Patient: Total time spent is greater than 50% in coordination of care (as documented) at patient's floor/unit and/or counseling patient: Coding Level of Care Code 16189 SUB INP/OBS CARE 2/35MIN Diagnoses Sepsis A41.9 Acute osteomyelitis of right calcaneus M86.171 Acute osteomyelitis of left calcaneus M86.172 Left arm weakness R29.898 End stage renal disease N18.6 Type 2 diabetes mellitus with complications E11.8 Unstageable pressure ulcer of left heel L89.620 Atrial fibrillation, permanent I48.21 Unstageable pressure ulcer of right heel L89.610
[2023-02-25] MEDS: CEFEPIME 1,000 MG in SYRINGE 0 ML IV SCH (18:05)
[2023-02-25] MEDS: ATORVASTATIN 10 MG TAB PO SCH (21:18)
[2023-02-26 06:22] LABS: Hematocrit (blood only) 33.9 % (42.0-52.0); Hemoglobin 11.2 g/dl (14.0-18.0); Mean Corpuscular Hemoglobin 31.4 pg (25.0-34.0); Mean Platelet Volume 9.4 fL (9.4-12.4); Platelet Count 225 K/uL (130-400); RDW Coefficient of Variation 14.6 % (11.5-14.5); RDW Standard Deviation 49.8 fL (36.4-46.3); Red Blood Count 3.57 M/uL (4.70-6.10); White Blood Count 7.77 K/ul (4.8-10.8)
[2023-02-26 06:46] LABS: Calcium 9.1 mg/dl (8.6-10.3); Creatinine Clr Calc Pharmacy 16.4 ml/min; Est GFR (African American) 14.8 ml/min; Est GFR (Non-African American) 12.7 ml/min; Potassium 3.4 mmol/L (3.5-5.1)
[2023-02-26] MEDS: APIXABAN 5 MG TABLET PO SCH ×2 (08:26→20:31)
[2023-02-26] MEDS: FLUDROCORTISONE ACETATE 0.1 MG TAB PO SCH (08:26)
[2023-02-26] MEDS: CLOPIDOGREL BISULFATE 75 MG TAB PO SCH (08:26)
[2023-02-26] MEDS: FOLIC ACID 1 MG TAB PO SCH (08:26)
[2023-02-26] MEDS: NEPHROCAPS PO SCH (08:26)
[2023-02-26] MEDS: SEVELAMER HCL 800 MG TABLET PO SCH ×3 (08:26→17:09)
[2023-02-26] MEDS: ACETAMINOPHEN 500 MG TAB PO SCH ×3 (08:26→20:29)
[2023-02-26] MEDS: ADVANCED PROBIOTIC 1250 MG CAPSULE PO SCH (08:27)
[2023-02-26] MEDS: metroNIDAZOLE 500 MG TAB PO SCH ×2 (08:27→20:30)
[2023-02-26] MEDS ORDERED: POTASSIUM CHLORIDE CRTAB 20 MEQ TABCR PO STA (08:45)
--- NOTE | 2023-02-26 08:54 | Nephrology Progress Note ---
Date of Service February 26, 2023 Assessment & Plan (1) End stage renal disease: Plan: * ESKD due to DKD * Outpatient HD Rx: [facility], TTS, 3.5 hours, 180 optiflux, 450/800, 3K, 2.5 calcium. EDW 97 kg. * Will plan next dialysis for 02/27/23 (2) Anemia: Plan: * LA therapy held with Hgb >10. * Maintained on Micera as outpatient. (3) Chronic kidney disease-mineral and bone disorder: Plan: * Continue sevelamer QAC. (4) Heel ulceration: Plan: * s/p debridement by Dr. Marti 02/19/23 * Remains on Daptomycin, Cefepime and Flagyl * Recommend monitoring weekly CK while on Daptomycin therapy (02/25/23 CPK 53) * Will need PICC line for long term care phlebotomist antibiotic therapy * 02/22/23 Vascular Medicine Consultation reviewed: palpable DP/PT pulses with multiphasic waveform. No intervention recommended. * Will need 2 weeks IV followed by 4 weeks oral antibiotic therapy for a total of 6 weeks * Recommend discussion w/ Podiatry as to whether patient should have orthotics made to alleviate heel pressure when he is weight bearing Admission and Anticipated Discharge Date Admission Date: February 17, 2023 Subjective Mr. Blue was evaluated in his hospital room this morning. He was unable to participate in PT this morning due to orthostasis. Review of Systems 2 Constitutional: no fever Eyes: no problem reported Ear, Nose, Mouth, Throat: no problem reported Respiratory: no cough and no dyspnea Cardiovascular: no chest pain Gastrointestinal: no nausea, no vomiting and no diarrhea/loose stools Integumentary: no rash Physical Exam Constitutional: not in distress Eyes: PERRL, conjunctivae normal, anicteric sclerae ENMT: external ear and nose normal, oropharynx normal Neck: trachea midline, no thyromegaly Respiratory: normal respiratory effort, lungs clear to auscultation Cardiovascular: RRR, no murmur, no edema Extremities: + AV fistula (+ bruit) Gastrointestinal (Abdomen): normal bowel sounds, soft, nontender, no hepatosplenomegaly Musculoskeletal: Extremities: + foot abnormality (both feet are wrapped w/ clean, dry dressing) Neurologic: Speech / Cognition: + abnormal speech (chronic); normal cognition Results & Data Vital Signs (Past 12 Hours) Vital Signs Temp Pulse Resp BP BP Pulse Ox O2 Del Method 02/26/23 08:41 36.5 C 89 18 104/72 98 Room Air 02/25/23 23:15 36.9 C 78 16 115/67 98 Room Air Laboratory Results Laboratory Results - last 24 hr 02/26/23 06:09 WBC 7.77 RBC 3.57 L Hgb 11.2 L Hct 33.9 L MCV 95.0 MCH 31.4 MCHC 33.0 RDW Std Deviation 49.8 H RDW Coeff of Mukul 14.6 H Plt Count 225 MPV 9.4 Sodium 140 Potassium 3.4 L Chloride 105 Carbon Dioxide 26 Anion Gap 9 BUN 26 H D Creatinine 4.33 H D Est Cr Clr Drug Dosing 16.4 Est GFR ( Amer) 14.8 Est GFR (Non-Af Amer) 12.7 BUN/Creatinine Ratio 6.0 L Glucose 142 H Calcium 9.1 PG Care Time/CCT Total # of Minutes Spent Total Time Spent with Patient: Total time spent is greater than 50% in coordination of care (as documented) at patient's floor/unit and/or counseling patient: Coding Level of Care Code 88814 SUB INP/OBS CARE 3/50MIN Diagnoses End stage renal disease N18.6 Anemia D64.9 Chronic kidney disease-mineral and bone disorder N18.9; E83.9; M89.9 Heel ulceration L97.409
--- NOTE | 2023-02-26 16:31 | Hospitalist Progress Note ---
Date of Service February 26, 2023 Assessment & Plan (1) Sepsis: Plan: S/P bilateral heel debridement by Dr Marti 02/18 Suspected source right heel ulcer and surrounding cellulitis Blood culture negative after 48 hours Right heel surgical wound culture - bacteroides thetaiotaomicron (unlikely driving infection per ID) Dapto (CK level WNL 02/21) Zosyn switched to cefepime/ flagyl per ID. Infectious disease recommendation Continue daptomycin 450 mg IV Q48H (renally dosed for HD pt) to complete a 6-week course (02/18/23 04/01/23) - Start cefepime 1g IV Q24H (post-HD on HD days) to complete a 6-week course (02/18/23 04/01/23) - Start metronidazole 500 mg PO BID to complete a 2-week course (02/18/23- 03/03/23) (2) Acute osteomyelitis of right calcaneus: Plan: s/p b/l heel debridement Dr Marti 02/18: Dr Marti continues to eval wound and recommend wound care US arterial doppler - left peroneal artery absent flow, will consult vascular surgery - Dr Noel no evidence of significant obstructive disease and has multiphasic waveforms in bilateral arterial systems extending below the knee. Does appear to have some tibial vessel disease but NEVILLE/CHARGE MASTER COORDINATOR widely patent to the ankle. Patient appears to have adequate perfusion to heal current pressure ulcers MRI ankle - reactive osteitis concerning for early osteomyelitis - debridement down to calcaneus per operation note placed PT/OT orders: weight bearing as tolerated with waffle off loading boots removed as per podiatry. (3) Acute osteomyelitis of left calcaneus: (4) Left arm weakness: Plan: Reason for last admission. Noted to be improving with rehabilitation. Unclear if he ever had MRI cervical spine but given this is improving will defer on admi ssion. Alternatively may be his rotator cuff. 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 HbA1C 6.4 in November, not accurate in setting of dialysis patient although fasting glucose 98 also not consistent with T2DM (7) Atrial fibrillation, permanent: Plan: Continue apixaban for anticoagulation Rate controlled without AV neal blocking agents, no need for ongoing telemetry at this time (8) Unstageable pressure ulcer of left heel: (9) Unstageable pressure ulcer of right heel: Plan VTE Prophylaxis - Eliquis Diet - dialysis renal [facility]position - [facility] Admission and Anticipated Discharge Date Admission Date: February 17, 2023 Subjective pt is not able to move about due to arthritic pain still problem solving about disposition Physical Exam Physical Exam: Pt is stable, weakened cardiac is regular lungs are diminished at the bases Results & Data Results & Data Vital Signs (Past 12 Hours) Vital Signs Temp Pulse Resp BP BP Pulse Ox O2 Del Method 02/26/23 15:10 97.7 F 86 16 122/79 95 Room Air 02/26/23 08:41 97.7 F 89 18 104/72 98 Room Air Laboratory Results reviewed CBC reviewed chemistry PG Care Time/CCT Total # of Minutes Spent Total Time Spent with Patient: Total time spent is greater than 50% in coordination of care (as documented) at patient's floor/unit and/or counseling patient: Coding Level of Care Code 93050 SUB INP/OBS CARE 2/35MIN Diagnoses Sepsis A41.9 Acute osteomyelitis of right calcaneus M86.171 Acute osteomyelitis of left calcaneus M86.172 Left arm weakness R29.898 End stage renal disease N18.6 Type 2 diabetes mellitus with complications E11.8 Atrial fibrillation, permanent I48.21 Unstageable pressure ulcer of left heel L89.620 Unstageable pressure ulcer of right heel L89.610
[2023-02-26] MEDS: CEFEPIME 1,000 MG in SYRINGE 0 ML IV SCH (17:10)
[2023-02-26] MEDS: DAPTOmycin 450 MG in SYRINGE 0 ML IV SCH (17:10)
[2023-02-26] MEDS: ATORVASTATIN 10 MG TAB PO SCH (20:30)
[2023-02-27] MEDS ORDERED: SODIUM CHLORIDE 0.9% 1,000 ML IV PRN (07:00)
--- NOTE | 2023-02-27 07:55 | Nephrology Progress Note ---
Date of Service February 27, 2023 Assessment & Plan (1) End stage renal disease: Plan: * ESKD due to DKD * Outpatient HD Rx: [facility], TTS, 3.5 hours, 180 optiflux, 450/800, 3K, 2.5 calcium. EDW 86 kg. * HD today. EDW has been reduced to 86 kg. Orders have been entered into EMR and HD RN notified * CBC, PRP for am (2) Anemia: Plan: * LA therapy held with Hgb >10. * Maintained on Micera as outpatient. (3) Chronic kidney disease-mineral and bone disorder: Plan: * Continue sevelamer QAC. (4) Heel ulceration: Plan: * s/p debridement by Dr. Marti 02/19/23 * Remains on Daptomycin, Cefepime and Flagyl * Recommend monitoring weekly CK while on Daptomycin therapy (02/25/23 CPK 53) * Has PICC line for director long term care antibiotic therapy * 02/22/23 Vascular Medicine Consultation reviewed: palpable DP/PT pulses with multiphasic waveform. No intervention recommended. Admission and Anticipated Discharge Date Admission Date: February 17, 2023 Subjective Mr. Blue was evaluated in his hospital room this morning. He voiced no medical concerns. Review of Systems Constitutional: no fever Eyes: no problem reported Ear, Nose, Mouth, Throat: no problem reported Respiratory: no cough and no dyspnea Cardiovascular: no chest pain Gastrointestinal: no nausea, no vomiting and no diarrhea/loose stools Integumentary: no rash Physical Exam Constitutional: not in distress Eyes: PERRL, conjunctivae normal, anicteric sclerae ENMT: external ear and nose normal, oropharynx normal Neck: trachea midline, no thyromegaly Respiratory: normal respiratory effort, lungs clear to auscultation Cardiovascular: RRR, no murmur, no edema Extremities: + AV fistula (+ bruit) Gastrointestinal (Abdomen): normal bowel sounds, soft, nontender, no hepatosplenomegaly Musculoskeletal: Extremities: + foot abnormality (both feet are wrapped w/ clean, dry dressing) Neurologic: Speech / Cognition: + abnormal speech (chronic); normal cognition Results & Data Vital Signs (Past 12 Hours) Vital Signs Temp Pulse Resp BP BP Pulse Ox O2 Del Method 02/27/23 07:43 36.3 C L 76 18 136/78 67 L Room Air 02/26/23 22:08 36.3 C L 90 16 128/69 97 Room Air 02/26/23 21:00 Room Air Laboratory Results Laboratory Results - last 24 hr 02/27/23 Unknown Stl C. diff Tox B Gene Negative Cdiff Gene PG Care Time/CCT Total # of Minutes Spent Total Time Spent with Patient: Total time spent is greater than 50% in coordination of care (as documented) at patient's floor/unit and/or counseling patient: Coding Level of Care Code 41972 SUB INP/OBS CARE 3/50MIN Diagnoses End stage renal disease N18.6 Anemia D64.9 Chronic kidney disease-mineral and bone disorder N18.9; E83.9; M89.9 Heel ulceration L97.409
[2023-02-27] MEDS: FOLIC ACID 1 MG TAB PO SCH (08:37)
[2023-02-27] MEDS: APIXABAN 5 MG TABLET PO SCH ×2 (08:37→20:53)
[2023-02-27] MEDS: ACETAMINOPHEN 500 MG TAB PO SCH ×3 (08:37→20:52)
[2023-02-27] MEDS: FLUDROCORTISONE ACETATE 0.1 MG TAB PO SCH (08:37)
[2023-02-27] MEDS: metroNIDAZOLE 500 MG TAB PO SCH ×2 (08:37→20:53)
[2023-02-27] MEDS: CLOPIDOGREL BISULFATE 75 MG TAB PO SCH (08:38)
[2023-02-27] MEDS: ADVANCED PROBIOTIC 1250 MG CAPSULE PO SCH (08:38)
[2023-02-27] MEDS: NEPHROCAPS PO SCH (08:38)
[2023-02-27] MEDS: SEVELAMER HCL 800 MG TABLET PO SCH ×3 (08:38→17:32)
[2023-02-27] MEDS: CEFEPIME 1,000 MG in SYRINGE 0 ML IV SCH (17:32)
--- NOTE | 2023-02-27 18:53 | Hospitalist Progress Note ---
Date of Service February 27, 2023 Assessment & Plan (1) Sepsis: Plan: S/P bilateral heel debridement by Dr Marti 02/18 Suspected source right heel ulcer and surrounding cellulitis Blood culture negative after 48 hours Right heel surgical wound culture - bacteroides thetaiotaomicron (unlikely driving infection per ID) Dapto (CK level WNL 02/21) Zosyn switched to cefepime/ flagyl per ID. Infectious disease recommendation Continue daptomycin 450 mg IV Q48H (renally dosed for HD pt) to complete a 6-week course (02/18/23 04/01/23) - Start cefepime 1g IV Q24H (post-HD on HD days) to complete a 6-week course (02/18/23 04/01/23) - Start metronidazole 500 mg PO BID to complete a 2-week course (02/18/23- 03/03/23) continue above plan. (2) Acute osteomyelitis of right calcaneus: Plan: s/p b/l heel debridement Dr Marti 02/18: Dr Marti continues to eval wound and recommend wound care US arterial doppler - left peroneal artery absent flow, will consult vascular surgery - Dr Noel no evidence of significant obstructive disease and has multiphasic waveforms in bilateral arterial systems extending below the knee. Does appear to have some tibial vessel disease but NEVILLE/ORAL SURGEON widely patent to the ankle. Patient appears to have adequate perfusion to heal current pressure ulcers MRI ankle - reactive osteitis concerning for early osteomyelitis - debridement down to calcaneus per operation note placed PT/OT orders: weight bearing as tolerated with waffle off loading boots removed as per podiatry. (3) Acute osteomyelitis of left calcaneus: (4) Left arm weakness: Plan: Reason for last admission. Noted to be improving with rehabilitation. Unclear if he ever had MRI cervical spine but given this is improving will defer on admission. Alternatively may be his rotator cuff. 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 HbA1C 6.4 in November, not accurate in setting of dialysis patient although fasting glucose 98 also not consistent with T2DM (7) Atrial fibrillation, permanent: Plan: Continue apixaban for anticoagulation Rate controlled without AV neal blocking agents, no need for ongoing telemetry at this time (8) Unstageable pressure ulcer of left heel: (9) Unstageable pressure ulcer of right heel: Plan VTE Prophylaxis - Eliquis Diet - dialysis renal Disposition - Consideration of [facility] for administration of antibiotics Admission and Anticipated Discharge Date Admission Date: February 17, 2023 Subjective 72 yo male reports no new symptoms Review of Systems Review of Systems: All systems reviewed & are unremarkable except as noted in HPI & below Physical Exam Physical Exam: Constitutional: WD/WN, vitals as above Eyes: PERRL, conjunctivae normal, anicteric sclerae ENMT: external ear and nose normal, oropharynx normal Neck: trachea midline, no thyromegaly Respiratory: normal respiratory effort, lungs clear to auscultation Cardiovascular: Rate/Rhythm: regular rate and + irregularly irregular Heart Sounds: no murmur Extremities: normal capillary refill and + pedal edema; no calf tenderness Gastrointestinal (Abdomen): normal bowel sounds, soft, nontender, no hepatosplenomegaly Skin:heels wrapped in dry dressing. Neurologic: moves all extremities and awake; not confused Psychiatric: A+Ox3, euthymic affect Results & Data Results & Data Vital Signs (Past 12 Hours) Vital Signs Temp Pulse Pulse Pulse Resp BP BP 02/27/23 15:10 36.5 C 82 18 02/27/23 13:53 36.2 C L 97 H 16 02/27/23 13:43 36.8 C 90 02/27/23 13:00 90 108/38 L 02/27/23 12:30 81 108/38 L 02/27/23 12:00 97 H 85/49 L 02/27/23 11:30 83 99/42 L 02/27/23 11:00 87 91/49 L 02/27/23 10:30 64 89/35 L 02/27/23 10:00 52 L 81/22 L 02/27/23 09:30 80 106/41 L 02/27/23 09:22 82 159/68 H 02/27/23 09:13 36.9 C 90 02/27/23 09:00 02/27/23 07:43 36.3 C L 76 18 136/78 BP Pulse Ox O2 Del Method 02/27/23 15:10 113/73 95 Room Air 02/27/23 13:53 134/62 97 Room Air 11/30/23 13:43 95/62 L 02/27/23 13:00 02/27/23 12:30 02/27/23 12:00 02/27/23 11:30 02/27/23 11:00 02/27/23 10:30 02/27/23 10:00 02/27/23 09:30 02/27/23 09:22 02/27/23 09:13 02/27/23 09:00 Room Air 02/27/23 07:43 67 L Room Air PG Care Time/CCT Total # of Minutes Spent Total Time Spent with Patient: Total time spent is greater than 50% in coordination of care (as documented) at patient's floor/unit and/or counseling patient: Coding Level of Care Code 42011 SUB INP/OBS CARE 2/35MIN Diagnoses Sepsis A41.9 Acute osteomyelitis of right calcaneus M86.171 Acute osteomyelitis of left calcaneus M86.172 Left arm weakness R29.898 End stage renal disease N18.6 Type 2 diabetes mellitus with complications E11.8 Atrial fibrillation, permanent I48.21 Unstageable pressure ulcer of left heel L89.620 Unstageable pressure ulcer of right heel L89.610 Time Spent (min) 35
[2023-02-27] MEDS: ATORVASTATIN 10 MG TAB PO SCH (20:53)
[2023-02-28] MEDS: ACETAMINOPHEN 500 MG TAB PO SCH ×3 (07:53→20:11)
[2023-02-28] MEDS: metroNIDAZOLE 500 MG TAB PO SCH ×2 (08:28→20:12)
[2023-02-28] MEDS: NEPHROCAPS PO SCH (08:29)
[2023-02-28] MEDS: CLOPIDOGREL BISULFATE 75 MG TAB PO SCH (08:29)
[2023-02-28] MEDS: SEVELAMER HCL 800 MG TABLET PO SCH ×3 (08:29→17:57)
[2023-02-28] MEDS: FLUDROCORTISONE ACETATE 0.1 MG TAB PO SCH (08:29)
[2023-02-28] MEDS: ADVANCED PROBIOTIC 1250 MG CAPSULE PO SCH (08:29)
[2023-02-28] MEDS: FOLIC ACID 1 MG TAB PO SCH (08:29)
[2023-02-28] MEDS: APIXABAN 5 MG TABLET PO SCH ×2 (08:29→20:11)
--- NOTE | 2023-02-28 08:31 | Nephrology Progress Note ---
Date of Service February 28, 2023 Assessment & Plan (1) End stage renal disease: Plan: * ESKD due to DKD * Outpatient HD Rx: [facility], TTS, 3.5 hours, 180 optiflux, 450/800, 3K, 2.5 calcium. EDW 85 kg. * No acute indication for HD today. Will plan next HD for Friday03/01/23. Attempt EDW 85 kg (2) Anemia: Plan: * LA therapy held with Hgb >10. * Maintained on Micera as outpatient. (3) Chronic kidney disease-mineral and bone disorder: Plan: * Continue sevelamer QAC. (4) Heel ulceration: Plan: * s/p debridement by Dr. Marti 02/19/23 * Remains on Daptomycin, Cefepime and Flagyl * Recommend monitoring weekly CK while on Daptomycin therapy (02/25/23 CPK 53) * Has PICC line for terminal operations manager antibiotic therapy * 02/22/23 Vascular Medicine Consultation reviewed: palpable DP/PT pulses with multiphasic waveform. No intervention recommended. Admission and Anticipated Discharge Date Admission Date: February 17, 2023 Subjective Mr. Blue was evaluated in his hospital room this morning. He hopes to return home for [place]. Review of PT notes indicate that he has not yet been able to stand or ambulate and recommends SNF at discharge Review of Systems Constitutional: no fever Eyes: no problem reported Ear, Nose, Mouth, Throat: no problem reported Respiratory: no cough and no dyspnea Cardiovascular: no chest pain Gastrointestinal: no nausea, no vomiting and no diarrhea/loose stools Integumentary: no rash Physical Exam Constitutional: not in distress Eyes: PERRL, conjunctivae normal, anicteric sclerae ENMT: external ear and nose normal, oropharynx normal Neck: trachea midline, no thyromegaly Respiratory: normal respiratory effort, lungs clear to auscultation Cardiovascular: RRR, no murmur, no edema Extremities: + AV fistula (+ bruit) Gastrointestinal (Abdomen): normal bowel sounds, soft, nontender, no hepatosplenomegaly Musculoskeletal: Extremities: + foot abnormality (both feet are wrapped w/ clean, dry dressing) Neurologic: Speech / Cognition: + abnormal speech (chronic); normal cognition Results & Data Vital Signs (Past 12 Hours) Vital Signs Temp Pulse Resp BP Pulse Ox O2 Del Method 02/28/23 07:53 Room Air 02/28/23 07:51 36.3 C L 82 16 140/62 99 Room Air Laboratory Results Laboratory Results - last 24 hr 02/28/23 09:04 WBC 8.57 RBC 3.61 L Hgb 11.1 L Hct 35.4 L MCV 98.1 MCH 30.7 MCHC 31.4 L RDW Std Deviation 53.2 H RDW Coeff of Mukul 14.9 H Plt Count 214 MPV 9.9 Sodium 138 Potassium 3.6 Chloride 104 Carbon Dioxide 25 Anion Gap 9 BUN 36 H Creatinine 4.60 H* Est Cr Clr Drug Dosing 15.5 Est GFR ( Amer) 13.7 Est GFR (Non-Af Amer) 11.8 BUN/Creatinine Ratio 7.8 L Glucose 218 H Calcium 9.1 PG Care Time/CCT Total # of Minutes Spent Total Time Spent with Patient: Total time spent is greater than 50% in coordination of care (as documented) at patient's floor/unit and/or counseling patient: Coding Level of Care Code 16762 SUB INP/OBS CARE 3/50MIN Diagnoses End stage renal disease N18.6 Anemia D64.9 Chronic kidney disease-mineral and bone disorder N18.9; E83.9; M89.9 Heel ulceration L97.409
[2023-02-28 09:29] LABS: Hematocrit (blood only) 35.4 % (42.0-52.0); Hemoglobin 11.1 g/dl (14.0-18.0); Mean Corpuscular Hemoglobin 30.7 pg (25.0-34.0); Mean Corpuscular Hgb Conc 31.4 g/dL (32.0-36.0); Mean Corpuscular Volume 98.1 fL (80.0-100.0); Mean Platelet Volume 9.9 fL (9.4-12.4); Platelet Count 214 K/uL (130-400); RDW Coefficient of Variation 14.9 % (11.5-14.5); RDW Standard Deviation 53.2 fL (36.4-46.3); Red Blood Count 3.61 M/uL (4.70-6.10); White Blood Count 8.57 K/ul (4.8-10.8)
[2023-02-28 09:55] LABS: BUN Creatinine Ratio 7.8 (10-20); Calcium 9.1 mg/dl (8.6-10.3); Creatinine Clr Calc Pharmacy 15.5 ml/min; Est GFR (African American) 13.7 ml/min; Est GFR (Non-African American) 11.8 ml/min; Potassium 3.6 mmol/L (3.5-5.1)
[2023-02-28] MEDS: CEFEPIME 1,000 MG in SYRINGE 0 ML IV SCH (18:28)
[2023-02-28] MEDS: DAPTOmycin 450 MG in SYRINGE 0 ML IV SCH (18:28)
[2023-02-28] MEDS: ATORVASTATIN 10 MG TAB PO SCH (20:12)
--- NOTE | 2023-02-28 22:55 | Hospitalist Progress Note ---
Date of Service February 28, 2023 Assessment & Plan (1) Sepsis: Plan: S/P bilateral heel debridement by Dr Marti 02/18 Suspected source right heel ulcer and surrounding cellulitis Blood culture negative after 48 hours Right heel surgical wound culture - bacteroides thetaiotaomicron (unlikely driving infection per ID) Dapto (CK level WNL 02/21) Zosyn switched to cefepime/ flagyl per ID. appreciate Infectious disease recommendation Continue daptomycin 450 mg IV post dialysis on (renally dosed for HD pt) to complete a 6-week course -Saturdays dose will be 700 mg (02/18/23 04/01/23) - cefepime 1g IV Q24H (post-HD on HD days) to complete a 6-week course (04/20/22 04/01/23) - metronidazole 500 mg PO BID to complete a 2-week course (02/18/23-03/03/23) (2) Acute osteomyelitis of right calcaneus: Plan: s/p b/l heel debridement Dr Marti 02/18: Dr Marti continues to eval wound and recommend wound care US arterial doppler - left peroneal artery absent flow, will consult vascular surgery - Dr Noel no evidence of significant obstructive disease and has multiphasic waveforms in bilateral arterial systems extending below the knee. Does appear to have some tibial vessel disease but NEVILLE/CASH ACCOUNTING CLERK widely patent to the ankle. Patient appears to have adequate perfusion to heal current pressure ulcers MRI ankle - reactive osteitis concerning for early osteomyelitis - debridement down to calcaneus per operation note placed PT/OT orders: weight bearing as tolerated with waffle off loading boots removed as per podiatry. (3) Acute osteomyelitis of left calcaneus: (4) Left arm weakness: Plan: Reason for last admission. Noted to be improving with rehabilitation. Unclear if he ever had MRI cervical spine but given this is improving will defer on admission. Alternatively may be his rotator cuff. 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 HbA1C 6.4 in November, not accurate in setting of dialysis patient although fasting glucose 98 also not consistent with T2DM (7) Atrial fibrillation, permanent: Plan: Continue apixaban for anticoagulation Rate controlled without AV neal blocking agents, no need for ongoing telemetry at this time (8) Unstageable pressure ulcer of left heel: (9) Unstageable pressure ulcer of right heel: Plan VTE Prophylaxis - Eliquis Diet - dialysis renal Disposition - Consideration of [facility] for administration of antibiotics Admission and Anticipated Discharge Date Admission Date: February 17, 2023 Subjective Patient reports no new symptoms. Review of Systems Review of Systems: All systems reviewed & are unremarkable except as noted in HPI & below Physical Exam Physical Exam: Constitutional: WD/WN, vitals as above Eyes: PERRL, conjunctivae normal, anicteric sclerae ENMT: external ear and nose normal, oropharynx normal Neck: trachea midline, no thyromegaly Respiratory: normal respiratory effort, lungs clear to auscultation Cardiovascular: Rate/Rhythm: regular rate and + irregularly irregular Heart Sounds: no murmur Extremities: normal capillary refill and + pedal edema; no calf tenderness Gastrointestinal (Abdomen): normal bowel sounds, soft, nontender, no hepatosplenomegaly Skin:heels wrapped in dry dressing. Neurologic: moves all extremities and awake; not confused Psychiatric: A+Ox3, euthymic affect Results & Data Results & Data Vital Signs (Past 12 Hours) Vital Signs Temp Pulse Resp BP Pulse Ox O2 Del Method 02/28/23 21:10 138/73 02/28/23 21:04 36.6 C 85 18 105/50 L 97 Room Air 02/28/23 15:39 36.5 C 87 18 178/72 H 99 Room Air PG Care Time/CCT Total # of Minutes Spent Total Time Spent with Patient: Total time spent is greater than 50% in coordination of care (as documented) at patient's floor/unit and/or counseling patient: Coding Level of Care Code 90859 SUB INP/OBS CARE 3/50MIN Diagnoses Sepsis A41.9 Acute osteomyelitis of right calcaneus M86.171 Acute osteomyelitis of left calcaneus M86.172 Left arm weakness R29.898 End stage renal disease N18.6 Type 2 diabetes mellitus with complications E11.8 Atrial fibrillation, permanent I48.21 Unstageable pressure ulcer of left heel L89.620 Unstageable pressure ulcer of right heel L89.610 Time Spent (min) 50 Comment updated family
[2023-03-01] MEDS ORDERED: SODIUM CHLORIDE 0.9% 1,000 ML IV PRN (07:00)
[2023-03-01] MEDS: SEVELAMER HCL 800 MG TABLET PO SCH ×3 (08:14→17:40)
[2023-03-01] MEDS: ACETAMINOPHEN 500 MG TAB PO SCH ×3 (08:14→21:06)
[2023-03-01] MEDS: APIXABAN 5 MG TABLET PO SCH ×2 (08:15→21:07)
[2023-03-01] MEDS: FLUDROCORTISONE ACETATE 0.1 MG TAB PO SCH (08:15)
[2023-03-01] MEDS: CLOPIDOGREL BISULFATE 75 MG TAB PO SCH (08:15)
[2023-03-01] MEDS: metroNIDAZOLE 500 MG TAB PO SCH ×2 (08:15→21:07)
[2023-03-01] MEDS: FOLIC ACID 1 MG TAB PO SCH (08:16)
[2023-03-01] MEDS: ADVANCED PROBIOTIC 1250 MG CAPSULE PO SCH (08:16)
[2023-03-01] MEDS: NEPHROCAPS PO SCH (08:16)
--- NOTE | 2023-03-01 11:41 | Hospitalist Progress Note ---
Date of Service March 01, 2023 Assessment & Plan (1) Sepsis: Plan: S/P bilateral heel debridement by Dr Marti 02/18 Suspected source right heel ulcer and surrounding cellulitis Blood culture negative after 48 hours Right heel surgical wound culture - bacteroides thetaiotaomicron (unlikely driving infection per ID) Dapto (CK level WNL 02/21) Zosyn switched to cefepime/ flagyl per ID. appreciate Infectious disease recommendation Continue daptomycin 450 mg IV post dialysis on (renally dosed for HD pt) to complete a 6-week course -Saturdays dose will be 700 mg (02/18/23 04/01/23) - cefepime 1g IV Q24H (post-HD on HD days) to complete a 6-week course ( 02/18/23 04/01/23) - metronidazole 500 mg PO BID to complete a 2-week course (02/18/23-03/03/23) will discharge tomorrow. (2) Acute osteomyelitis of right calcaneus: Plan: s/p b/l heel debridement Dr Marti 02/18: Dr Marti continues to eval wound and recommend wound care US arterial doppler - left peroneal artery absent flow, will consult vascular surgery - Dr Noel no evidence of significant obstructive disease and has multiphasic waveforms in bilateral arterial systems extending below the knee. Does appear to have some tibial vessel disease but NEVILLE/PROCESS MOLD TECHNICIAN widely patent to the ankle. Patient appears to have adequate perfusion to heal current pressure ulcers MRI ankle - reactive osteitis concerning for early osteomyelitis - debridement down to calcaneus per operation note placed PT/OT orders: weight bearing as tolerated with waffle off loading boots removed as per podiatry. (3) Acute osteomyelitis of left calcaneus: (4) Left arm weakness: Plan: Reason for last admission. Noted to be improving with rehabilitation. Unclear if he ever had MRI cervical spine but given this is improving will defer on admission. Alternatively may be his rotator cuff. 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 HbA1C 6.4 in November, not accurate in setting of dialysis patient although fasting glucose 98 also not consistent with T2DM (7) Atrial fibrillation, permanent: Plan: Continue apixaban for anticoagulation Rate controlled without AV neal blocking agents, no need for ongoing telemetry at this time (8) Unstageable pressure ulcer of left heel: (9) Unstageable pressure ulcer of right heel: Plan VTE Prophylaxis - Eliquis Diet - dialysis renal Disposition - Consideration of [facility] for administration of antibiotics Admission and Anticipated Discharge Date Admission Date: February 17, 2023 Subjective Patient reports no new symptoms. Review of Systems Review of Systems: All systems reviewed & are unremarkable except as noted in HPI & below Physical Exam Physical Exam: Constitutional: WD/WN, vitals as above Eyes: PERRL, conjunctivae normal, anicteric sclerae ENMT: external ear and nose normal, oropharynx normal Neck: trachea midline, no thyromegaly Respiratory: normal respiratory effort, lungs clear to auscultation Cardiovascular: Rate/Rhythm: regular rate and + irregularly irregular Heart Sounds: no murmur Extremities: normal capillary refill and + pedal edema; no calf tenderness Gastrointestinal (Abdomen): normal bowel sounds, soft, nontender, no hepatosplenomegaly Skin:heels wrapped in dry dressing. Neurologic: moves all extremities and awake; not confused Psychiatric: A+Ox3, euthymic affect Results & Data Results & Data Vital Signs (Past 12 Hours) Vital Signs Temp Pulse Pulse Pulse Resp BP BP 03/01/23 11:00 61 90/42 L 03/01/23 10:30 97 H 92/36 L 03/01/23 10:00 68 99/48 L 03/01/23 09:29 36.3 C L 94 H 03/01/23 07:06 36.4 C L 91 H 16 104/63 Pulse Ox O2 Del Method 03/01/23 11:00 03/01/23 10:30 03/01/23 10:00 03/01/23 09:29 03/01/23 07:06 100 Room Air PG Care Time/CCT Total # of Minutes Spent Total Time Spent with Patient: Total time spent is greater than 50% in coordination of care (as documented) at patient's floor/unit and/or counseling patient: Coding Level of Care Code 30199 SUB INP/OBS CARE 2/35MIN Diagnoses Sepsis A41.9 Acute osteomyelitis of right calcaneus M86.171 Acute osteomyelitis of left calcaneus M86.172 Left arm weakness R29.898 End stage renal disease N18.6 Type 2 diabetes mellitus with complications E11.8 Atrial fibrillation, permanent I48.21 Unstageable pressure ulcer of left heel L89.620 Unstageable pressure ulcer of right heel L89.610
--- NOTE | 2023-03-01 13:09 | Nephrology Progress Note ---
Date of Service March 01, 2023 Assessment & Plan (1) End stage renal disease: (2) Heel ulceration: (3) Anemia: (4) Type 2 diabetes mellitus with complications: Plan End-stage kidney disease on hemodialysis, admitted with bilateral nonhealing heel ulceration, s/p debridement. Blood pressure relatively low but asymptomatic. --Getting dialysis today as regular schedule, tolerating dialysis, tolerating UF -- Avoid IV fluid, dose medications for EGFR less than 10 ml/min Admission and Anticipated Discharge Date Admission Date: February 17, 2023 Subjective Roland was seen and evaluated during dialysis this morning. Blood pressure is relatively low but he was tolerating dialysis, tolerating UF, denied any dizziness, lightheadedness or chest pain. Review of Systems Review of Systems: Review of system was done and pertinent positives and negatives were mentioned above. Physical Exam Constitutional: WD/WN, vitals as above + ill appearing; no acute distress Eyes: + anicteric sclerae Neck: normal visual inspection Respiratory: Auscultation: lungs clear to auscultation bilaterally Cardiovascular: RRR, no murmur, no edema Skin: + turgor decreased; no rashes Neurologic: no focal motor deficits Psychiatric: Orientation: alert and oriented x 3 Results & Data Vital Signs (Past 12 Hours) Vital Signs Temp Pulse Pulse Pulse Resp BP BP 03/01/23 12:00 86 90/60 L 03/01/23 11:30 85 85/56 L 03/01/23 11:00 61 90/42 L 03/01/23 10:30 97 H 92/36 L 03/01/23 10:00 68 99/48 L 03/01/23 09:29 36.3 C L 94 H 03/01/23 07:06 36.4 C L 91 H 16 104/63 Pulse Ox O2 Del Method 03/01/23 12:00 03/01/23 11:30 03/01/23 11:00 03/01/23 10:30 03/01/23 10:00 03/01/23 09:29 03/01/23 07:06 100 Room Air PG Care Time/CCT Total # of Minutes Spent Total Time Spent with Patient: Total time spent is greater than 50% in coordination of care (as documented) at patient's floor/unit and/or counseling patient: Coding Level of Care Code 33583 SUB INP/OBS CARE 2/35MIN Diagnoses End stage renal disease N18.6 Heel ulceration L97.409 Anemia D64.9 Type 2 diabetes mellitus with complications E11.8
[2023-03-01] MEDS: CEFEPIME 1,000 MG in SYRINGE 0 ML IV SCH (17:44)
[2023-03-01] MEDS ORDERED: DAPTOmycin 700 MG in SYRINGE 0 ML IV SCH (18:00)
[2023-03-01] MEDS: ATORVASTATIN 10 MG TAB PO SCH (21:07)
--- NOTE | 2023-03-01 22:08 | Orthopedic Progress Note ---
Date of Service March 01, 2023 Assessment & Plan (1) Unstageable pressure ulcer of right heel: Plan: Patient seen and evaluated. Dry, sterile dressing change without incident. adaptic, 4x4, abd, kerlix, waffle boots. A stable dry eschar is noted over right heel wound. Patient to utilize off loading waffle boots while at rest supine. Patient is weight bearing as tolerated with waffle off loading boots removed. Will continue to follow while in house. Thank you for allowing me to participate in the care of this Patient. (2) Unstageable pressure ulcer of left heel: (3) Nonhealing wound of heel: (4) Sepsis: Admission and Anticipated Discharge Date Admission Date: February 17, 2023 Subjective Patient seen at bedside resting comfortably in room 312-1. He has no complaints. Patient looks forward to possible discharge tomorrow. Review of Systems Review of Systems: All systems reviewed & are unremarkable except as noted in Subjective Physical Exam Constitutional: cooperative and comfortable Eyes: normal visual farfan by confrontation Neck: normal visual inspection and trachea midline Respiratory: normal respiratory effort Cardiovascular: Vessels: posterior tibial pulses present and dorsalis pedis pulses present Skin: + ulcer (Bilateral retrocalcaneal heel w ounds full thickness with developing eschar) Results & Data Vital Signs (Past 12 Hours) Vital Signs Temp Pulse Pulse Pulse Resp BP BP 03/01/23 20:36 36.6 C 90 18 104/61 03/01/23 14:33 36.4 C L 98 H 16 119/62 03/01/23 13:55 36.5 C 78 95/56 L 03/01/23 13:30 89 83/51 L 03/01/23 13:00 76 78/52 L 03/01/23 12:30 69 70/41 L 03/01/23 12:00 86 90/60 L 03/01/23 11:30 85 85/56 L 03/01/23 11:00 61 90/42 L 03/01/23 10:30 97 H 92/36 L Pulse Ox O2 Del Method 03/01/23 20:36 98 Room Air 03/01/23 14:33 98 Room Air 03/01/23 13:55 03/01/23 13:30 03/01/23 13:00 03/01/23 12:30 03/01/23 12:00 03/01/23 11:30 03/01/23 11:00 03/01/23 10:30
[2023-03-02] MEDS: NEPHROCAPS PO SCH (08:30)
[2023-03-02] MEDS: metroNIDAZOLE 500 MG TAB PO SCH (08:30)
[2023-03-02] MEDS: FOLIC ACID 1 MG TAB PO SCH (08:30)
[2023-03-02] MEDS: FLUDROCORTISONE ACETATE 0.1 MG TAB PO SCH (08:30)
[2023-03-02] MEDS: ACETAMINOPHEN 500 MG TAB PO SCH ×2 (08:30→12:41)
[2023-03-02] MEDS: SEVELAMER HCL 800 MG TABLET PO SCH ×2 (08:30→13:00)
[2023-03-02] MEDS: CLOPIDOGREL BISULFATE 75 MG TAB PO SCH (08:30)
[2023-03-02] MEDS: ADVANCED PROBIOTIC 1250 MG CAPSULE PO SCH (08:30)
[2023-03-02] MEDS: APIXABAN 5 MG TABLET PO SCH (08:31)
--- NOTE | 2023-03-02 12:25 | Nephrology Progress Note ---
Date of Service March 02, 2023 Assessment & Plan (1) End stage renal disease: (2) Heel ulceration: (3) Anemia: (4) Type 2 diabetes mellitus with complications: Plan End-stage kidney disease on hemodialysis, admitted with bilateral nonhealing heel ulceration, s/p debridement. Blood pressure relatively low but asymptomatic. Had dialysis yesterday. Electrolyte, volume status acceptable. -- If discharge is this afternoon next dialysis will be Friday at outpatient dialysis unit. -- Avoid IV fluid, dose medications for EGFR less than 10 ml/min Admission and Anticipated Discharge Date Admission Date: February 17, 2023 Jimbo Watkins was seen and evaluated this morning. He was resting comfortably and denied any symptoms and was looking forward to go home this afternoon. He feels that his daughter and grandchildren will be able to take care of him at home. blood pressure is relatively low but asymptomatic. Review of Systems Review of Systems: Review of system was done and pertinent positives and negatives were mentioned above. Physical Exam Constitutional: WD/WN, vitals as above + ill appearing; no acute distress Eyes: + anicteric sclerae Neck: normal visual inspection Respiratory: Auscultation: lungs clear to auscultation bilaterally Cardiovascular: RRR, no murmur, no edema Skin: + turgor decreased; no rashes Neurologic: no focal motor deficits Psychiatric: Orientation: alert and oriented x 3 Results & Data Vital Signs (Past 12 Hours) Vital Signs Temp Pulse Resp BP Pulse Ox O2 Del Method 03/02/23 07:08 36.5 C 79 18 101/57 L 98 Room Air PG Care Time/CCT Total # of Minutes Spent Total Time Spent with Patient: Total time spent is greater than 50% in coordination of care (as documented) at patient's floor/unit and/or counseling patient: Coding Level of Care Code 38060 SUB INP/OBS CARE 2/35MIN Diagnoses End stage renal disease N18.6 Heel ulceration L97.409 Anemia D64.9 Type 2 diabetes mellitus with complications E11.8
[2023-03-02] MEDS: CEFEPIME 1,000 MG in SYRINGE 0 ML IV SCH (13:58)
--- NOTE | 2023-03-02 17:17 | Discharge Summary ---
Date of Service March 02, 2023 Admission HPI Per Admitting Provider Rey Blue is a 72 years old male with ESRD on dialysis who presents to the ER with his daughter due to concerns for worsening heel ulcers. She reports these were presents during his visit in November but only very minor at that time and not really open. They have been getting progressively worse despite air boot and regular dressing changes. He has not been on recent antibiotics for it. His daughter has been trying to get him in to wound care but next appointment was March 05. He was seen by his japanese tutor today at dialysis and advised to come to the ER for further treatment. He was recently admitted December 172022 due to left upper extremity weakness. No stroke on MRI. They actually went to [place] for a second opinion following hospitalization here as appears the weakness was very significant but no explanation was given for this. He went to [facility] and reports this has been improving with rehabilitation. His daughter reports his left arm suddenly went tingly, 2 weeks after that his right arm had the same this and then b/l lower extremity weakness. 2 days later. Before this hospitalization he was walking around without the walker and mowing with a sit on mower but is now a 2 person assist. Principal Diagnosis sepsis Discharge Exam Constitutional: WD/WN, vitals as above Eyes: PERRL, conjunctivae normal, anicteric sclerae ENMT: external ear and nose normal, oropharynx normal Neck: trachea midline, no thyromegaly Respiratory: normal respiratory effort, lungs clear to auscultation Cardiovascular: Rate/Rhythm: regular rate and + irregularly irregular Heart Sounds: no murmur Extremities: normal capillary refill and + pedal edema; no calf tenderness Gastrointestinal (Abdomen): normal bowel sounds, soft, nontender, no hepatosplenomegaly Skin:heels wrapped in dry dressing. Neurologic: moves all extremities and awake; not confused Psychiatric: A+Ox3, euthymic affect Discharge Data Allergies Allergy/AdvReac Type Severity Reaction Status Date / Time amlodipine AdvReac Severe FLU Verified 01/08/23 22:00 SYMPTONS Consultations 02/17/23 18:59 ED Decision to Admit Stat 02/17/23 20:48 Consult Nephrology Routine 02/17/23 21:04 Consult Orthopedic Surgery Routine 02/20/23 19:01 Consult Infectious Diseases Routine 02/20/23 19:11 Consult Vascular Surgery Routine Procedures Performed Operation Date: 02/18/23 09:30 Actual Procedures p Bilateral Heel Debridement - Sorin Marti, DPM, MS Ordered Studies 02/17/23 19:14 US arterial duplex LE BI Stat 02/17/23 21:03 MRI Ankle [MR ankle RT wo con] Routine Hospital Course (1) Sepsis: S/P bilateral heel debridement by Dr Marti 02/18 Suspected source right heel ulcer and surrounding cellulitis Blood culture negative after 48 hours Right heel surgical wound culture - bacteroides thetaiotaomicron (unlikely driving infection per ID) Dapto (CK level WNL 02/21) Zosyn switched to cefepime/ flagyl per ID. appreciate Infectious disease recommendation Continue daptomycin 450 mg IV post dialysis on (renally dosed for HD pt) to complete a 6-week course -Saturdays dose will be 700 mg (02/18/23 04/01/23) - cefepime 1g IV Q24H (post-HD on HD days) to complete a 6-week course (02/18/23 04/01/23) - metronidazole 500 mg PO BID to complete a 2-week course (02/18/23-03/03/23) continue wound care at home. (2) Acute osteomyelitis of right calcaneus: s/p b/l heel debridement Dr Marti 02/18: Dr Marti continues to eval wound and recommend wound care US arterial doppler - left peroneal artery absent flow, will consult vascular surgery - Dr Noel no evidence of significant obstructive disease and has multiphasic waveforms in bilateral arterial systems extending below the knee. Does appear to have some tibial vessel disease but [employer] widely patent to the ankle. Patient appears to have adequate perfusion to heal current pressure ulcers MRI ankle - reactive osteitis concerning for early osteomyelitis - debridement down to calcaneus per operation note placed PT/OT orders: weight bearing as tolerated with waffle off loading boots removed as per podiatry. (3) Acute osteomyelitis of left calcaneus: (4) Left arm weakness: Reason for last admission. Noted to be improving with rehabilitation. Unclear if he ever had MRI cervical spine but given this is improving will defer on admission. Alternatively may be his rotator cuff. (5) End stage renal disease: Appreciate ongoing management per nephrology Usually on Friday//Friday dialysis (6) Type 2 diabetes mellitus with complications: Appears to be a prior diagnosis as no longer on medication for this. HbA1C 6.4 in November, not accurate in setting of dialysis patient although fasting glucose 98 also not consistent with T2DM (7) Atrial fibrillation, permanent: Continue apixaban for anticoagulation Rate controlled without AV neal blocking agents, no need for ongoing telemetry at this time (8) Unstageable pressure ulcer of left heel: (9) Unstageable pressure ulcer of right heel: Plan \ Total Time Total Time Spent Total Time Spent (In Minutes): 32 Discharge Plan Discharge Items Patient Disposition: Home - Home Health Services Reason For Visit: SEPSIS, B/L HEEL ULCERS Discharge Diagnosis: sepsis Activity: Resume your previous activity Non-emergency contact: Primary Care Provider Call non-emergency contact if: you have any medication questions Follow-up/Referrals: Tamiko Donovan, [Primary Care Provider] - Diet: Dialysis Renal Addtl Attending Provider Instructions: Please take next dose of metroniadazol tonight. You only have 3 doses left. You will continue on IV antibiotics : you will finish these on 04/01/23 Continue daptomycin 450 mg IV post dialysis on Friday - (renally dosed for HD pt) to complete a 6-week course -Saturdays dose will be 700 mg (02/18/23 04/01/23) - cefepime 1g IV Q24H (post-HD on HD days) to complete a 6-week course (02/18/23 04/01/23) Pending Studies at Discharge: No Stand-Alone Forms: My [facility], Smoking Cessation Medications and DC Order Prescriptions: New metronidazole 500 mg Tablet 500 mg PO BID Qty: 3 0RF Advanced Probiotic 625 mg (10 billion cell) Capsule 2 cap PO DAILY Qty: 30 0RF daptomycin 350 mg recon soln 700 mg IV .friday Rx Instructions: administer over 30 mins after dialysis daptomycin 350 mg recon soln 450 mg IV TUTH Qty: 10 0RF Rx Instructions: administer over 30 mins after dialysis end date: 04/01/23 cefepime 1 gram recon soln 1 g IV Q24H Qty: 30 0RF Rx Instructions: after dialysis Continued Eliquis 5 mg tablet 5 mg PO BID Qty: 60 11RF fludrocortisone 0.1 mg tablet 0.1 mg PO DAILY Qty: 90 3RF folic acid 1 mg tablet 2 mg PO DAILY clopidogrel 75 mg tablet 75 mg PO DAILY sevelamer carbonate 800 mg tablet 800 mg PO TID Rx Instructions: 1 tablet by mouth with each meal atorvastatin 10 mg tablet 10 mg PO HS midodrine 5 mg tablet 5 mg PO TID PRN (Reason: low BP) Rx Instructions: Per caregiver, pt hasn't taken it yet. ProRenal 8 mg iron-800 mcg-1,000 unit tablet 1 tab PO DAILY lidocaine-prilocaine 2.5-2.5 % cream 1 applic topical DIRECTED Rx Instructions: APPLY SMALL AMT TO ACCESS SITE BEFORE DIALYSIS acetaminophen 650 mg Tablet Extended Release 1,300 mg PO DAILY PRN (Reason: Pain) Discharge Orders: Discharge Order (Routine); Ordered 03/02/23 Ordered By: Osito Pelletier Admission Data Admit Date/Time: 02/17/23 19:29 Attending Provider: Osito Pelletier Admit Provider: Rickey Moran Primary Care Provider: Tamiko Donovan Other Providers: Rickey Moran; Ez Vilchis; Sorin Marti; Lakeisha Obrien; Serge Lugo; Lynne Ventura; Lily Jameson; Estelita Barbour; Katarina Barakat; Edith Stephens; Matti Yu; Natalee Williamson; Viridiana Ryan; Karthik Noel; [place] Other Interventions: Discharge Summary Assessment (RN) Last Done: 03/02/23 13:53 Coding Level of Care Code 52488 INP/OBS DISCH >30 MIN Diagnoses Sepsis A41.9 Acute osteomyelitis of right calcaneus M86.171 Acute osteomyelitis of left calcaneus M86.172 Left arm weakness R29.898 End stage renal disease N18.6 Type 2 diabetes mellitus with complications E11.8 Atrial fibrillation, permanent I48.21 Unstageable pressure ulcer of left heel L89.620 Unstageable pressure ulcer of right heel L89.610
[2023-03-04] MEDS ORDERED: DAPTOmycin 450 MG in SYRINGE 0 ML IV SCH (18:00)
== END 2023-03-02 15:12 | disposition home health service (06) | DRG 853 ==
LOC: ED 15:43 → SUATTDRO 19:29 → EDINP 19:29 → 2E 02-18 18:15 → 3E 02-21 11:01

== ENCOUNTER 2023-03-15 10:24 | Inpatient (IN) ==
--- OUTSIDE RECORDS SUMMARY | 2023-03-15 10:36 | External Medical Summary ---
Author Name UNSPECIFIED Address Unknown Organization [facility] History of Encounters Reason for Assessment: Start of care - f urther visits planned Inpatient discharge facility: Past 14 Da ys: Discharged From Short Stay Acute Hospital Most Recent Inpatient Discharge Date: Functional Assessment Patient Living Situation: Patient lives with other person(s) in the home: Around the clock When Dyspneic: With moderate exerti on (e.g., while dressing, using commode or bedpan, walking distances less than 20 feet) Bowel Incontinence Frequency: Very rarel y or never has bowel incontinence Cognitive Functioning: Requires promptin g (cueing, repetition, reminders) only under stressful or unfamiliar conditions. When Confused (Reported or Observed): In new or complex situations only When Anxious (Reported or Observed): Les s often than daily Cognitive and Behavioral and Psychiatric Symptoms: None Current Ability: Bathing: Unable to use the shower or tub, but able to participate in bathing self in bed, at the sink, in bedside chair, or on commode, with the assistance or supervision of another person throughout the bath. Current Ability: Ambulation: Chairfast, unable to ambulate and is unable to wheel self. Current: Management Of Oral Medications: Unable to take medication unless administered by another person Problems Primary Home Care Diagnosis ICD Code: E1 1.69, Type 2 diabetes mellitus with other specified complication Home Care Diagnosis 1: ICD Code: M86.9, Osteomyelitis, unspecified Home Care Diagnosis 1: Severity Ratin Home Care Diagnosis 2: ICD Code: L97.428 ^ Home Care Diagnosis 2: Severity Ratin Home Care Diagnosis 3: ICD Code: L97.418 ^ Home Care Diagnosis 3: Severity Ratin Home Care Diagnosis 4: ICD Code: Z45.2, Encounter for adjustment and management of VAD Home Care Diagnosis 5: ICD Code: Z79.2, assisted (current) use of antibiotics
[2023-03-15] MEDS ORDERED: SODIUM CHLORIDE 0.9% 1,000 ML IV SCH (11:15)
[2023-03-15 11:27] LABS: Basophils # (auto) 0.05 K/uL (0.00-0.20); Basophils % (auto) 0.7 %; Eosinophils # (auto) 0.05 K/uL (0.00-0.50); Eosinophils % (auto) 0.7 %; Hematocrit (blood only) 35.7 % (42.0-52.0); Hemoglobin 11.2 g/dl (14.0-18.0); Immature Granulocytes # (auto) 0.08 K/uL (0.01-0.20); Immature Granulocytes % (auto) 1.2 %; Lymphocytes # (auto) 0.99 K/uL (1.20-3.40); Lymphocytes % (auto) 14.4 %; Mean Corpuscular Hgb Conc 31.4 g/dL (32.0-36.0); Mean Corpuscular Volume 98.9 fL (80.0-100.0); Mean Platelet Volume 10.2 fL (9.4-12.4); Monocytes # (auto) 0.65 K/uL (0.11-0.59); Monocytes % (auto) 9.4 %; Neutrophils # (auto) 5.07 K/uL (1.40-6.50); Neutrophils % (auto) 73.6 %; Platelet Count 196 K/uL (130-400); RDW Coefficient of Variation 14.8 % (11.5-14.5); RDW Standard Deviation 53.8 fL (36.4-46.3); Red Blood Count 3.61 M/uL (4.70-6.10); White Blood Count 6.89 K/ul (4.8-10.8)
--- NOTE | 2023-03-15 11:32 | Emergency Department Note ---
Impression & Plan Acute osteomyelitis of left calcaneus, Acute osteomyelitis of right calcaneus ED Provider Note HISTORY OF PRESENT ILLNESS: Patient is a 72-year-old male presenting with osteomyelitis of his bilateral feet. Patient has been followed in wound clinic and in podiatry office for his chronic bilateral heel wounds. He was seen in podiatry clinic yesterday and had bedside debridement of his wound bed. Decision was made to admit him to the hospital today for plan for surgical interventions tomorrow. Patient is currently on cefepime and daptomycin for his osteomyelitis. He did attend dialysis today. Patient denies any chest pain or shortness of breath. Denies any recent fevers. Denies any nausea, vomiting or abdominal pain. She is feeling slightly tired after his dialysis treatment today. ROS: as above PHYSICAL EXAM: Constitutional: Patient appears in no acute distress. HENT: Head: Normocephalic and atraumatic. Eyes: EOMI, PERRL Mouth/Throat: Mucous membranes moist. Neck: Trachea midline. Neck supple. Cardiovascular: Tachycardic with irregular rhythm. No murmurs, rubs or gallops. Intact distal pulses. Pulmonary/Chest: No respiratory distress. Breath sounds clear and equal bilaterally. No wheezes or rales. Abdominal: Abdomen soft, no tenderness, rebound or guarding. Musculoskeletal: No edema, tenderness or deformity noted. PICC line present in RUE. Skin: Warm and dry. Patient has pressure wounds to the bilateral posterior heel. The right heel has a bit of eschar. The right heel the eschar has been removed, but the wound bed does still have some presence of eschar. Psychiatric: Appropriate mood and affect for situation. Neurological: Alert and keenly responsive. CN II-XII grossly intact, moving all extremities equally and fully. MDM: - Vitals signs showed hypotensive and tachycardic - History obtained via patient and patient's daughter. Patient presents with osteomyelitis of bilateral feet. Patient is not followed in wound clinic and podiatry office for his chronic bilateral heel wounds. He was seen in podiatry clinic yesterday and had bedside debridement of his wound bed. He was referred to the ER after dialysis today for admission for surgical intervention tomorrow. Patient is currently on cefepime and daptomycin as for his osteomyelitis. Denies any chest pain or shortness of breath. No fevers at home. - Chronic conditions affecting care: ESRD (on HD); CAD; Afib; DM-2; HTN; HLD - Differential diagnoses include, but are not limited to: osteomyelitis; cellulitis; infected foot wound; pneumonia; electrolyte abnormality - Order placed for continuous cardiac monitoring. At this time, monitor showed rate of 96 bpm with irregular rhythm, per my interpretation. - External medical records reviewed. Podiatry progress note dated 03/01/2023 was reviewed. Patient noted to have unstageable pressure ulcers of the left and right heel. Patient was just discharged from the hospital on 03/02/2023 for sepsis from his chronic heel wounds. He was subsequently found to have osteomyelitis of his right calcaneus and left calcaneus. Infectious disease recommended daptomycin and cefepime dosing. - EKG interpreted by myself showed atrial fibrillation. Rate 94 bpm. QTc 360. No acute ischemic changes. Significant artifact noted on EKG. - Discussed case with fabrication engineer, Dr. Marti at 11:25 AM. He reports that he would like the patient admitted to the hospital service with plan for patient to have surgery as an add-on procedure in the morning tomorrow. Plan for further IV antibiotic treatment and potential assessment for placement at a rehab facility. - Laboratory workup interpreted by myself showed normal WBC; stable electrolytes; ESRD (Cr 2.77); elevated procalcitonin (0.9) - Discussion was had with healthcare facility administrator about patient's case and need for admission - Patient's BP improved after 1L NS. I think sepsis is less likely, given that he has been on cefepime and daptomycin in the outpatient setting. I think his hypotension is likely secondary to overdiuresis at dialysis - Hospitalist consulted for admission - Patient admitted to [facility] service for further evaluation and management. ASSESSMENT AND PLAN: Diagnosis: Osteomyelitis of right calcaneous; osteomyelitis of left calcaneous Plan: Abdomen Past Med/Surg History Medical History CVA (cerebral vascular accident) End stage renal disease Carotid arterial disease Orthostatic hypotension Atrial fibrillation, permanent Fistula left arm Diabetes type 2, controlled ESRD (end stage renal disease) on dialysis Hyperlipidemia Hypertension Presence of arteriovenous fistula for hemodialysis, primary Surgical History S/P carotid endarterectomy History of tooth extraction History of surgery on arm Family History Mother , age 65 of cancer -uncertain type Cancer Father , in his 50s of cancer Stomach cancer Esophagus cancer Cancer Cancer of bowel Sister Kidney stone Social History (Updated 03/05/23 @ 13:25 by aJde Tomas RN) Smoking Status: Never smoker Second Hand Exposure: No; Do You Dip or Chew Tobacco: No; Hx Alcohol Use: No Hx Substance Use: No Preferred Language: Moldovan Communication Ability: Effective Visual Impairment: Limited Hearing Ability: Hard of Hearing Social Service Technician Required: Yes Beliefs That Will Affect Care: None marital status: Current Living Situation: Family Current Living Situation Comment: daughter lives w/ patient current occupational status: retired current occupation: retired age 64 from [employer] How many Children do You have: 1 How many Children do You have Comment: Daughter takes care of patient, grandchildren also assist with care as needed. Feels Safe at Home: Yes Diet: regular during the past year weight has: decreased > 10 lbs Assistive Devices: Hospital Bed, Walker and Wheelchair Allergies Allergies Allergy/AdvReac Type Severity Reaction Status Date / Time amlodipine AdvReac Severe FLU Verified 03/05/23 13:20 [facility] Home Medications Medication Instructions Recorded Confirmed lidocaine-prilocaine 2.5 %-2.5 % 1 applic topical DIRECTED 08/17/20 03/15/23 topical cream vit B complx, C-iron 8 mg-folic 1 tab PO DAILY 08/17/20 03/15/23 acid 800 mcg-D3 1,000 unit-zinc tablet (ProRenal) clopidogrel 75 mg tablet 75 mg PO DAILY 02/13/22 03/15/23 folic acid 1 mg tablet 1 mg PO BID 02/13/22 03/15/23 sevelamer carbonate 800 mg tablet 800 mg PO TIDM 02/13/22 03/15/23 acetaminophen 650 mg 1,300 mg PO DAILY PRN Pain 12/17/22 03/15/23 tablet,extended release atorvastatin 10 mg tablet 10 mg PO HS 02/17/23 03/15/23 midodrine 5 mg tablet 5 mg PO TIDM 02/17/23 03/15/23 cefepime 1 gram solution for 1 g IV DAILY@1430 03/15/23 03/15/23 injection daptomycin 350 mg intravenous 450 mg IV TUTH@1430 03/15/23 03/15/23 solution daptomycin 350 mg intravenous 700 mg IV SA@1430 03/15/23 03/15/23 solution fludrocortisone 0.1 mg tablet 0.1 mg PO DAILY 03/15/23 03/15/23 Previous Rx's Medication Instructions Recorded apixaban 5 mg tablet (Eliquis) 5 mg PO BID #60 tabs 08/12/22 L.acidop,casei,lactis,rham-B.lact,ivan 2 cap PO DAILY #30 caps 03/02/23 625 mg (10 billion cell) capsule (Advanced Probiotic) Results & Data (ED) Vital Signs Vital Signs - 24 hr 03/15/23 10:37 03/15/23 10:49 03/15/23 10:51 Temperature 36.8 C Temperature Source Oral Pulse Rate 68 110 H 108 H Pulse Rate [Apical] Pulse Rhythm Regular Pulse Strength Normal Respiratory Rate 20 19 17 Respiratory Effort / Characteristics Non-Labored Spontaneous Respiratory Depth Normal Respiratory Pattern Regular Blood Pressure 45/34 L 65/42 L Blood Pressure [Right Arm] Blood Pressure Mean 37 49 Blood Pressure Mean [Right Arm] Blood Pressure Position [Right Arm] Pulse Oximetry 98 Oxygen Delivery Method Room Air Sepsis Recent Fever Within 48 Hours No Sepsis New/Unexplained Change in Mental Status No Sepsis Action Taken by Nursing No Action Required 03/15/23 10:58 03/15/23 11:00 03/15/23 11:05 Temperature Temperature Source Pulse Rate 109 H 96 H Pulse Rate [Apical] 94 H Pulse Rhythm Regular Pulse Strength Respiratory Rate 19 22 20 Respiratory Effort / Characteristics Non-Labored Spontaneous Respiratory Depth Normal Respiratory Pattern Blood Pressure Blood Pressure [Right Arm] 65/42 L Blood Pressure Mean Blood Pressure Mean [Right Arm] 49 Blood Pressure Position [Right Arm] Lying Pulse Oximetry 94 Oxygen Delivery Method Room Air Sepsis Recent Fever Within 48 Hours Sepsis New/Unexplained Change in Mental Status Sepsis Action Taken by Nursing 03/15/23 11:05 03/15/23 11:10 03/15/23 11:10 Temperature Temperature Source Pulse Rate 108 H 142 H Pulse Rate [Apical] Pulse Rhythm Pulse Strength Respiratory Rate 18 20 Respiratory Effort / Characteristics Respiratory Depth Respiratory Pattern Blood Pressure 82/50 L 99/40 L Blood Pressure [Right Arm] Blood Pressure Mean 60 43 Blood Pressure Mean [Right Arm] Blood Pressure Position [Right Arm] Pulse Oximetry Oxygen Delivery Method Sepsis Recent Fever Within 48 Hours Sepsis New/Unexplained Change in Mental Status Sepsis Action Taken by Nursing 03/15/23 11:15 03/15/23 11:21 03/15/23 11:21 Temperature Temperature Source Pulse Rate 102 H 97 H 96 H Pulse Rate [Apical] Pulse Rhythm Pulse Strength Respiratory Rate 18 19 20 Respiratory Effort / Characteristics Respiratory Depth Respiratory Pattern Blood Pressure 99/32 L Blood Pressure [Right Arm] Blood Pressure Mean 43 Blood Pressure Mean [Right Arm] Blood Pressure Position [Right Arm] Pulse Oximetry Oxygen Delivery Method Sepsis Recent Fever Within 48 Hours Sepsis New/Unexplained Change in Mental Status Sepsis Action Taken by Nursing Laboratory Data 03/15/23 11:01 03/15/23 11:01 Lab Results 03/15/23 Range/Units 11:01 WBC 6.89 (4.8-10.8) K/ul RBC 3.61 L (4.70-6.10) M/uL Hgb 11.2 L (14.0-18.0) g/dl Hct 35.7 L (42.0-52.0) % MCV 98.9 (80.0-100.0) fL MCH 31.0 (25.0-34.0) pg MCHC 31.4 L (32.0-36.0) g/dL RDW Std Deviation 53.8 H (36.4-46.3) fL RDW Coeff of Mukul 14.8 H (11.5-14.5) % Plt Count 196 (130-400) K/uL MPV 10.2 (9.4-12.4) fL Immature Gran % (Auto) 1.2 % Neut % (Auto) 73.6 % Lymph % (Auto) 14.4 % [place] % (Auto) 9.4 % Eos % (Auto) 0.7 % Baso % (Auto) 0.7 % Neut # (Auto) 5.07 (1.40-6.50) K/uL Lymph # (Auto) 0.99 L (1.20-3.40) K/uL [place] # (Auto) 0.65 H (0.11-0.59) K/uL Eos # (Auto) 0.05 (0.00-0.50) K/uL Baso # (Auto) 0.05 (0.00-0.20) K/uL Immature Gran # (Auto) 0.08 (0.01-0.20) K/uL Sodium 138 (136-145) mmol/L Potassium 3.7 (3.5-5.1) mmol/L Chloride 98 (98-107) mmol/L Carbon Dioxide 31 (21-32) mmol/L Anion Gap 9 (3-11) BUN 14 (6-23) mg/dl Creatinine 2.77 H (0.6-1.4) mg/dl Est Cr Clr Drug Dosing 28.6 ml/min Est GFR ( Amer) 25.3 ml/min Est GFR (Non-Af Amer) 21.8 ml/min BUN/Creatinine Ratio 5.1 L (10-20) Glucose 185 H (70-99(Fasting)) mg/dl Lactate 3.7 H* (0.4-2.0) mmol/L Calcium 8.4 L (8.6-10.3) mg/dl Magnesium 1.8 (1.7-2.4) mg/dl Total Bilirubin 0.5 (0.2-1.0) mg/dl Direct Bilirubin 0.0 (0-0.2) mg/dl AST 28 (13-39) U/L ALT 17 (7-52) U/L Alkaline Phosphatase 114 H (34-104) U/L Total Protein 6.0 (6.0-8.3) gm/dl Albumin 3.0 L (3.4-5.0) gm/dl Procalcitonin 0.90 H (0-0.5) ng/ml Administered Medications Discontinued Medications Sodium Chloride (Nss) 1,000 mls @ 999 mls/hr IV .Q1H1M JENNIFER Stop: 03/15/23 12:15 Last Admin: 03/15/23 11:08 Dose: 999 mls/hr Documented By: SALONI *Cefepime*Non- Formulary Patient's Own Med 1 each IV ONE ONE Stop: 03/15/23 12:01 Last Admin: 03/15/23 11:49 Dose: 1 gm Documented By: JOHN *Daptomycin*Non- Formulary Patient's Own Med 1 each IV ONE ONE Stop: 03/15/23 12:01 Last Admin: 12/16/23 11:51 Dose: 700 mg Documented By: SWD Imaging Data Radiologist's Impression: Chest X-Ray 03/15/23 11:05 SINGLE VIEW CHEST CLINICAL HISTORY: Sepsis. FINDINGS: An AP, portable, supine chest radiograph is compared to study dated 02/23/2023. Correlation is made with chest CT dated 10/31/2021. A right PICC line is unchanged in position. The heart is enlarged and noting atherosclerotic calcification of the thoracic aorta. The pulmonary vasculature is nondistended congested. Chronic interstitial thickening similar to previous. Scarring/atelectasis is noted at the lung bases. No airspace consolidation or large pleural effusion is identified. No pneumothorax is seen. The skeletal structures are osteopenic. There is chronic deformity of the left proximal humerus. A stent projects over the left apex IMPRESSION: Cardiomegaly with no active disease in the chest. ACT 112: Negative or not required by law. Electronically signed by: Federico Basilio M.D. 03/15/2023 11:31 AM Discharge Plan Visit Data Chief Complaint: Wound Stated Complaint: WOUNDS BILATERAL FEET, REFERRED BY DR MARTI ED Provider: Qiana Greene Discharge Problem: Acute osteomyelitis of left calcaneus, Acute osteomyelitis of right calcaneus Forms Stand Alone Forms: My [facility] [employer] Prescriptions Prescriptions: No Action Eliquis 5 mg tablet 5 mg PO BID Qty: 60 11RF folic acid 1 mg tablet 1 mg PO BID clopidogrel 75 mg tablet 75 mg PO DAILY sevelamer carbonate 800 mg tablet 800 mg PO TIDM Rx Instructions: 1 tablet by mouth with each meal atorvastatin 10 mg tablet 10 mg PO HS midodrine 5 mg tablet 5 mg PO TIDM Advanced Probiotic 625 mg (10 billion cell) Capsule 2 cap PO DAILY Qty: 30 0RF ProRenal 8 mg iron-800 mcg-1,000 unit tablet 1 tab PO DAILY lidocaine-prilocaine 2.5-2.5 % cream 1 applic topical DIRECTED Rx Instructions: APPLY SMALL AMT TO ACCESS SITE BEFORE DIALYSIS acetaminophen 650 mg Tablet Extended Release 1,300 mg PO DAILY PRN (Reason: Pain) fludrocortisone 0.1 mg tablet 0.1 mg PO DAILY cefepime 1 gram recon soln 1 g IV DAILY@1430 Rx Instructions: after dialysis daptomycin 350 mg recon soln 450 mg IV TUTH@1430 Rx Instructions: administer over 30 mins after dialysis end date: 04/01/23 daptomycin 350 mg Recon Soln 700 mg IV SA@1430 Rx Instructions: INFUSE OVER 1 HR VIA ELASTOMERIC PUMP GIVE AFTER DIALYSIS Referrals Referrals: Tamiko Donovan DO [Primary Care Provider] -
--- NOTE | 2023-03-15 11:32 | XRay Report ---
SINGLE VIEW CHEST CLINICAL HISTORY: Sepsis. FINDINGS: An AP, portable, supine chest radiograph is compared to study dated 02/23/2023. Correlation is made with chest CT dated 10/31/2021. A right PICC line is unchanged in position. The heart is enlar ged and noting atherosclerotic calcification of the thoracic aorta. The pulmonary vasculature is nond istended congested. Chronic interstitial thickening similar to previous. Scarring/atelectasis is note d at the lung bases. No airspace consolidation or large pleural effusion is identified. No pneumothor ax is seen. The skeletal structures are osteopenic. There is chronic deformity of the left proximal h umerus. A stent projects over the left apex IMPRESSION: Cardiomegaly with no active disease in the chest. ACT 112: Negative or not required by law. Electronically signed by: Federico Basilio M.D. 03/15/2023 11:31 AM
[2023-03-15] MEDS ORDERED: SODIUM CHLORIDE 0.9% 1,000 ML IV STA (11:34)
[2023-03-15 11:48] LABS: Bilirubin,Total 0.5 mg/dl (0.2-1.0); Calcium 8.4 mg/dl (8.6-10.3); Magnesium 1.8 mg/dl (1.7-2.4); Potassium 3.7 mmol/L (3.5-5.1)
[2023-03-15 11:54] LABS: BUN Creatinine Ratio 5.1 (10-20); Creatinine Clr Calc Pharmacy 28.6 ml/min; Est GFR (African American) 25.3 ml/min; Est GFR (Non-African American) 21.8 ml/min
[2023-03-15] MEDS ORDERED: DAPTOMYCIN IV ONE (12:00)
[2023-03-15] MEDS ORDERED: CEFEPIME IV ONE (12:00)
[2023-03-15] MEDS ORDERED: MIDODRINE HCL 2.5 MG TAB PO STA (12:15)
[2023-03-15] MEDS ORDERED: FLUDROCORTISONE ACETATE 0.1 MG TAB PO STA (13:08)
--- NOTE | 2023-03-15 13:11 | History & Physical Report ---
Date of Service March 15, 2023 Assessment & Plan (1) Acute osteomyelitis of left calcaneus: Plan: Ankle MRI per podiatry recommendations Continue daptomycin and cefepime Consult podiatry for surgical management tomorrow (2) Acute osteomyelitis of right calcaneus: Plan: As above (3) PAD (peripheral artery disease): Plan: Continue clopidogrel, atorvastatin, apixaban on hold for surgery (4) Hematoma of right lower leg: Plan: Previous I&D, imprving per his daughter (5) End stage renal disease: Plan: Next due dialysis on Friday. Consult nephrology on Friday if patient is expected to stay in hospital for this. (6) Atrial fibrillation, permanent: Plan: Rate controlled without AV neal blocking agents Holding Eliquis for surgery Plan VTE prophylaxis - restart apixaban when okay by podiatry Diet - dialysis renal, n.p.o. 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 He was recently admitted from February 17 - March 02, 2023 for the same diagnosis and underwent bilateral heel debridement on February 18. He followed up with wound care as outpatient and referred back to Dr Marti as it was felt further debridement was required. This was performed somewhat in the office yesterday but was felt he required more extensive debridement under anesthesia. Therefore was referred back to the ER for admission for debridement under anesthesia potentially in the OR tomorrow. The patient successfully underwent hemodialysis today. He arrived post dialysis and due a midodrine and without taking his fludrocortisone this morning and was hypotensive. BP improved with 1L NSS bolus given in the ER. The patient reports no new complaints than f rom discharge. No fever or chills. His does note his heel wounds have been getting worse and they are unsure what boots he should be wearing at this time as they have been given multiple options. They have been complaint continuing on the daptomycin/cefepime given through a right arm PICC line. Allergies Allergy/AdvReac Type Severity Reaction Status Date / Time amlodipine AdvReac Severe FLU Verified 03/05/23 13:20 [facility] Home Medications Medication Instructions Recorded Confirmed Type lidocaine-prilocaine 2.5 %-2.5 % 1 applic topical DIRECTED 08/17/20 03/15/23 History topical cream vit B complx, C-iron 8 mg-folic 1 tab PO DAILY 08/17/20 03/15/23 History acid 800 mcg-D3 1,000 unit-zinc tablet (ProRenal) clopidogrel 75 mg tablet 75 mg PO DAILY 02/13/22 03/15/23 History folic acid 1 mg tablet 1 mg PO BID 02/13/22 03/15/23 History sevelamer carbonate 800 mg tablet 800 mg PO TIDM 02/13/22 03/15/23 History apixaban 5 mg tablet (Eliquis) 5 mg PO BID #60 tabs 08/12/22 03/15/23 Rx acetaminophen 650 mg 1,300 mg PO DAILY PRN Pain 12/17/22 03/15/23 History tablet,extended release atorvastatin 10 mg tablet 10 mg PO HS 02/17/23 03/15/23 History midodrine 5 mg tablet 5 mg PO TIDM 02/17/23 03/15/23 History L.acidop,casei,lactis,rham-B.lact,ivan 2 cap PO DAILY #30 caps 03/02/23 03/15/23 Rx 625 mg (10 billion cell) capsule (Advanced Probiotic) cefepime 1 gram solution for 1 g IV DAILY@1430 03/15/23 03/15/23 History injection daptomycin 350 mg intravenous 450 mg IV TUTH@1430 03/15/23 03/15/23 History solution daptomycin 350 mg intravenous 700 mg IV SA@1430 03/15/23 03/15/23 History solution fludrocortisone 0.1 mg tablet 0.1 mg PO DAILY 03/15/23 03/15/23 History Past Med/Surg History Medical History CVA (cerebral vascular accident) End stage renal disease Carotid arterial disease Orthostatic hypotension Atrial fibrillation, permanent Fistula left arm Diabetes type 2, controlled ESRD (end stage renal disease) on dialysis Hyperlipidemia Hypertension Presence of arteriovenous fistula for hemodialysis, primary Surgical History S/P carotid endarterectomy History of tooth extraction History of surgery on arm Family History Mother , age 65 of cancer -uncertain type Cancer Father , in his 50s of cancer Stomach cancer Esophagus cancer Cancer Cancer of bowel Sister Kidney stone Social History Smoking Status: Unknown if ever smoked Second Hand Exposure: No; Do You Dip or Chew Tobacco: No; Hx Alcohol Use: No Hx Substance Use: No Preferred Language: Frisian Communication Ability: Impaired Communication Ability Comment: HX STROKE - SPEECH GARBLED. 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 Other Information That Helps Us Care for You: No Feels Safe at Home: Yes Safety Concerns: Feels Safe At This Time Diet: regular during the past year weight has: decreased > 10 lbs Assistive Devices: Glasses, Hospital Bed and Walker Review of Systems Review of Systems: All systems reviewed & are unremarkable except as noted in HPI & below Physical Exam Constitutional: WD/WN, vitals as above Eyes: + anicteric sclerae; normal pupil size ENMT: external ear and nose normal, oropharynx normal Neck: trachea midline, no thyromegaly Respiratory: normal respiratory effort; no respiratory distress Auscultation: + diminished lung sounds (throughout); no crackles and no wheezes Cardiovascular: Rate/Rhythm: regular rate and + irregularly irregular Heart Sounds: no murmur Extremities: normal capillary refill and + pedal edema (trace); no calf tenderness Gastrointestinal (Abdomen): normal bowel sounds, soft, nontender, no hepatosplenomegaly Musculoskeletal: no cyanosis or clubbing, extremities motor strength 5/5 Skin: bilateral heel ulcers just wrapped again by ER provider therefore not unwrapped again as would not change admission plans and will be seen/managed by podiatry on consult. No cellulitis beyond dressing. Neurologic: moves all extremities and awake; not confused Psychiatric: A+Ox3, euthymic affect Results & Data Results & Data Vital Signs (Past 12 Hours) Vital Signs Temp Pulse Pulse Resp BP BP Pulse Ox 03/15/23 12:33 88 03/15/23 11:21 96 H 20 99/32 L 03/15/23 11:21 97 H 19 03/15/23 11:15 102 H 18 03/15/23 11:10 99/40 L 03/15/23 11:10 142 H 20 82/50 L 03/15/23 11:05 108 H 18 03/15/23 11:05 96 H 20 94 03/15/23 11:00 109 H 22 03/15/23 10:58 94 H 19 65/42 L 03/15/23 10:51 108 H 17 65/42 L 03/15/23 10:49 110 H 19 45/34 L 03/15/23 10:37 36.8 C 68 20 98 O2 Del Method 03/15/23 12:33 03/15/23 11:21 03/15/23 11:21 03/15/23 11:15 03/15/23 11:10 03/15/23 11:10 03/15/23 11:05 03/15/23 11:05 Room Air 03/15/23 11:00 03/15/23 10:58 03/15/23 10:51 03/15/23 10:49 03/15/23 10:37 Room Air Laboratory Results Abnormal lab results 03/15/23 Range/Units 11:01 RBC 3.61 L (4.70-6.10) M/uL Hgb 11.2 L (14.0-18.0) g/dl Hct 35.7 L (42.0-52.0) % MCHC 31.4 L (32.0-36.0) g/dL RDW Std Deviation 53.8 H (36.4-46.3) fL RDW Coeff of Mukul 14.8 H (11.5-14.5) % Lymph # (Auto) 0.99 L (1.20-3.40) K/uL Schley # (Auto) 0.65 H (0.11-0.59) K/uL Creatinine 2.77 H (0.6-1.4) mg/dl BUN/Creatinine Ratio 5.1 L (10-20) Glucose 185 H (70-99(Fasting)) mg/dl Lactate 3.7 H* (0.4-2.0) mmol/L Calcium 8.4 L (8.6-10.3) mg/dl Alkaline Phosphatase 114 H (34-104) U/L Albumin 3.0 L (3.4-5.0) gm/dl Procalcitonin 0.90 H (0-0.5) ng/ml Diagnostic Findings SINGLE VIEW CHEST CLINICAL HISTORY: Sepsis. FINDINGS: An AP, portable, supine chest radiograph is compared to study dated 02/23/2023. Correlation is made with chest CT dated 10/31/2021. A right PICC line is unchanged in position. The heart is enlarged and noting atherosclerotic calcification of the thoracic aorta. The pulmonary vasculature is nondistended congested. Chronic interstitial thickening similar to previous. Scarring/atelectasis is noted at the lung bases. No airspace consolidation or large pleural effusion is identified. No pneumothorax is seen. The skeletal structures are osteopenic. There is chronic deformity of the left proximal humerus. A stent projects over the left apex IMPRESSION: Cardiomegaly with no active disease in the chest. Medications Administered ER medications given: Normal saline 1000ml bolus ECG Rate (beats per minute): 94 Rhythm: atrial fibrillation Findings: + PVC; no acute ischemic change Comparison ECG Date: from (February 19, 2023) Change: no significant change Code Status & VTE Plan Code Status Full VTE Prophylaxis Plan VTE Prophylaxis will be ordered: Yes PG Care Time/CCT Total # of Minutes Spent Total Time Spent with Patient: Total time spent is greater than 50% in coordination of care (as documented) at patient's floor/unit and/or counseling patient: Coding Level of Care Code 48657 INT INP/OBS CARE 375MIN Diagnoses Acute osteomyelitis of left calcaneus M86.172 Acute osteomyelitis of right calcaneus M86.171 PAD (peripheral artery disease) I73.9 Hematoma of right lower leg S80.11XA End stage renal disease N18.6 Atrial fibrillation, permanent I48.21
[2023-03-15] MEDS ORDERED: ADVANCED PROBIOTIC 1250 MG CAPSULE PO STA (13:15)
[2023-03-15] MEDS ORDERED: CEFEPIME 1 GM IV SCH (15:10)
[2023-03-15] MEDS ORDERED: ACETAMINOPHEN 325 MG TAB PO PRN (15:10)
--- NOTE | 2023-03-15 17:35 | Anesthesiology Consultation ---
Date of Service March 15, 2023 Assessment & Plan (1) Encounter for pre-operative examination: Chart Review Chart Review: Acceptable Risk for Surgery History Surgery Operation Date: 03/16/23 09:30 Proposed Procedures p Bilateral Heel Wound Debridement(Bilateral) - Sorin Marti, DPM, MS Height/Weight Height: 5 ft 10 in Weight: 96.4 kg Allergies Allergy/AdvReac Type Severity Reaction Status Date / Time amlodipine AdvReac Severe FLU Verified 03/05/23 13:20 [facility] Medications Home Medications Medication Instructions Recorded Confirmed Last Taken lidocaine-prilocaine 2.5 %-2.5 % 1 applic topical DIRECTED 08/17/20 03/15/23 02/17/23 topical cream vit B complx, C-iron 8 mg-folic 1 tab PO DAILY 08/17/20 03/15/23 03/15/23 acid 800 mcg-D3 1,000 unit-zinc tablet (ProRenal) clopidogrel 75 mg tablet 75 mg PO DAILY 02/13/22 03/15/23 03/15/23 folic acid 1 mg tablet 1 mg PO BID 02/13/22 03/15/23 03/15/23 sevelamer carbonate 800 mg tablet 800 mg PO TIDM 02/13/22 03/15/23 03/15/23 apixaban 5 mg tablet (Eliquis) 5 mg PO BID #60 tabs 08/12/22 03/15/23 03/15/23 acetaminophen 650 mg 1,300 mg PO DAILY PRN Pain 12/17/22 03/15/23 01/05/23 17:00 tablet,extended release atorvastatin 10 mg tablet 10 mg PO HS 02/17/23 03/15/23 03/14/23 midodrine 5 mg tablet 5 mg PO TIDM 02/17/23 03/15/23 03/15/23 L.acidop,casei,lactis,rham-B.lact,ivan 2 cap PO DAILY #30 caps 03/02/23 03/15/23 Unknown 625 mg (10 billion cell) capsule (Advanced Probiotic) cefepime 1 gram solution for 1 g IV DAILY@1430 03/15/23 03/15/23 03/14/23 injection daptomycin 350 mg intravenous 450 mg IV TUTH@1430 03/15/23 03/15/23 03/13/23 solution daptomycin 350 mg intravenous 700 mg IV SA@1430 03/15/23 03/15/23 03/08/23 solution fludrocortisone 0.1 mg tablet 0.1 mg PO DAILY 03/15/23 03/15/23 03/14/23 Past Medical History Medical History CVA (cerebral vascular accident) End stage renal disease Carotid arterial disease Orthostatic hypotension Atrial fibrillation, permanent Fistula left arm Diabetes type 2, controlled ESRD (end stage renal disease) on dialysis Hyperlipidemia Hypertension Presence of arteriovenous fistula for hemodialysis, primary Past Family History Family History Mother , age 65 of cancer -uncertain type Cancer Father , in his 50s of cancer Stomach cancer Esophagus cancer Cancer Cancer of bowel Sister Kidney stone Past Surgical History Surgical History S/P carotid endarterectomy History of tooth extraction History of surgery on arm Social History Smoking Status: Unknown if ever smoked Do You Dip or Chew Tobacco: No Hx Alcohol Use: No Alcohol type: beer Hx Substance Use: No substance use type: does not use Physical Exam Vital Signs Last Vital Signs Temp 36.5 C 03/15/23 15:47 Pulse 91 H 03/15/23 15:47 Resp 18 03/15/23 15:47 BP 95/27 L 03/15/23 15:47 Pulse Ox 98 03/15/23 15:47 O2 Del Method Room Air 03/15/23 16:02 Testing Laboratory Results 03/15/23 11:01 03/15/23 11:01 Electrocardiogram Date: 03/15/23 Findings: + NSST changes and + AFIB @ Echocardiogram Date: 12/17/22 LV Function: normal Valvular Disease: + MR (mod) mod TR mod pulm htn
[2023-03-15] MEDS: SEVELAMER HCL 800 MG TABLET PO SCH (19:55)
--- NOTE | 2023-03-15 19:55 | Magnetic Resonance Report ---
MRI OF THE LEFT ANKLE WITHOUT IV CONTRAST CLINICAL HISTORY: Infection. Possible osteomyelitis. COMPARISON STUDY: Radiographs of the left ankle dated 04/25/2022. TECHNIQUE: MRI of the left ankle was performed utilizing various T1 and T2-weighted sequences in the axial, sagittal, and coronal planes. IV contrast was not administered for this examination. FINDINGS: There is no MRI evidence of fracture. A wound is suggested overlying the heel. There is mar row edema within the posterolateral aspect of the calcaneus, best seen on axial image #33. This shows increased T2 signal and drop in T1 signal with erosion of the overlying cortex. This is consistent w ith osteomyelitis. No additional foci of similar-appearing marrow change are identified throughout th e ankle. The ankle mortise is intact. No osteochondral defect is seen in the talar dome. There is tra ce ankle joint effusion. The Achilles tendon is normal in morphology and signal intensity. The anteri or, posterior, and peroneal tendons appear intact. There is mild tenosynovitis of the peroneal tendon s and tibialis posterior. The anterior talofibular ligament is maintained. The deltoid ligament is in tact. Imaged portions of the plantar fascia are normal. Subcutaneous soft tissue edema is present yesenia und the heel. Foci of susceptibility artifact in the heel may may represent foci of gas versus microm etallic foreign bodies. There is evidence of a nonspecific myositis of the regional musculature. No o rganized fluid collection is seen to suggest abscess on this unenhanced examination. IMPRESSION: 1. Heel wound with evidence of calcaneal osteomyelitis. 2. There is cellulitis of the heel. No fluid collection is seen to suggest abscess. 3. The ankle tendons appear intact. 4. There is tenosynovitis of the peroneal and tibialis posterior tendons. 5. Additional findings as above. Electronically signed by: Federico Basilio M.D. 03/15/2023 7:53 PM
--- NOTE | 2023-03-15 19:59 | Magnetic Resonance Report ---
MRI OF THE RIGHT ANKLE WITHOUT IV CONTRAST CLINICAL HISTORY: Infection. COMPARISON STUDY: Radiographs of the right calcaneus dated 02/17/2023. MRI of the right ankle dated 04/19/2022. TECHNIQUE: MRI of the right ankle is performed utilizing various T1 and T2-weighted sequences in the axial, sagittal, and coronal planes. IV contrast was not administered for this examination. FINDINGS: There is no MRI evidence of acute fracture. A wound is seen overlying the posterolateral as pect of the heel. There is marrow edema within the underlying calcaneus with drop in T1 signal and co rtical loss. This is consistent with osteomyelitis. No additional foci of similar appearing marrow ch laury are identified throughout the right ankle to suggest osteomyelitis. The ankle mortise is intact. There is no osteochondral defect in the talar dome. A small ankle joint effusion is noted. The Achil les tendon is normal in morphology and signal intensity. The anterior, posterior, and peroneal tendon s are intact. There is mild tenosynovitis of the tibialis posterior and peroneal tendons. No fluid co llection is seen to indicate abscess. There is only mild soft tissue edema around the ankle and heel. The anterior talofibular and deltoid ligaments are intact. Imaged portions of the plantar fascia are normal in appearance. There is a dorsal heel spur. IMPRESSION: 1. There is a wound overlying the posterolateral aspect of the heel with underlying calcaneal osteomy elitis. 2. No fluid collection is seen to suggest abscess. 3. Additional findings as above. Electronically signed by: Federico Basilio M.D. 03/15/2023 7:58 PM
[2023-03-15] MEDS: MIDODRINE HCL 2.5 MG TAB PO SCH (20:01)
[2023-03-15] MEDS: FOLIC ACID 1 MG TAB PO SCH (20:02)
[2023-03-15] MEDS: ATORVASTATIN 10 MG TAB PO SCH (20:03)
--- NOTE | 2023-03-15 22:01 | Orthopedic Consultation ---
Date of Consultation March 15, 2023 Assessment & Plan (1) Acute osteomyelitis of right calcaneus: Patient seen and evaluated in [facility]. We reviewed plan of care including surgical debridement of wounds with partial resection of bilateral calcaneus. We reviewed MRI images and MRI findings. Left calcaneus shows definitive +OM. Right calcaneus is exposed and prominent. Resection necessary to allow expedited closure of wound. We discussed possible use of wound vac. All questions answered. Surgical intervention planned for 03/16/23. Thank you for allowing me to participate in the care of this Patient. (2) Acute osteomyelitis of left calcaneus: (3) Chronic kidney disease-mineral and bone disorder: History of Present Illness Attending Physician: Rickey oMran MD History of Present Illness Patient is a [id number] seen at [place] [id number] for bilateral non healing heel wounds. Patient has a past medical history significant for ESRD on HD, T2DM, CAD, CVA, fib, HTN. Patient last confinement was one month earlier and Patient recently discharged on 03/05/23. [facility] then referred to our office for surgical care of worsening heel wounds. Concern for lack of source control of infection Patient was directed to [facility] ED for admit with plan of surgical debridement. Allergies Allergy/AdvReac Type Severity Reaction Status Date / Time amlodipine AdvReac Severe FLU Verified 03/05/23 13:20 [facility] Home Medications Medication Instructions Recorded Confirmed Type lidocaine-prilocaine 2.5 %-2.5 % 1 applic topical DIRECTED 08/17/20 03/15/23 History topical cream vit B complx, C-iron 8 mg-folic 1 tab PO DAILY 08/17/20 03/15/23 History acid 800 mcg-D3 1,000 unit-zinc tablet (ProRenal) clopidogrel 75 mg tablet 75 mg PO DAILY 02/13/22 03/15/23 History folic acid 1 mg tablet 1 mg PO BID 02/13/22 03/15/23 History sevelamer carbonate 800 mg tablet 800 mg PO TIDM 02/13/22 03/15/23 History apixaban 5 mg tablet (Eliquis) 5 mg PO BID #60 tabs 08/12/22 03/15/23 Rx acetaminophen 650 mg 1,300 mg PO DAILY PRN Pain 12/17/22 03/15/23 History tablet,extended release atorvastatin 10 mg tablet 10 mg PO HS 02/17/23 03/15/23 History midodrine 5 mg tablet 5 mg PO TIDM 02/17/23 03/15/23 History L.acidop,casei,lactis,rham-B.lact,ivan 2 cap PO DAILY #30 caps 03/02/23 03/15/23 Rx 625 mg (10 billion cell) capsule (Advanced Probiotic) cefepime 1 gram solution for 1 g IV DAILY@1430 03/15/23 03/15/23 History injection daptomycin 350 mg intravenous 450 mg IV TUTH@1430 03/15/23 03/15/23 History solution daptomycin 350 mg intravenous 700 mg IV SA@1430 03/15/23 03/15/23 History solution fludrocortisone 0.1 mg tablet 0.1 mg PO DAILY 03/15/23 03/15/23 History Patient History Medical History CVA (cerebral vascular accident) End stage renal disease Carotid arterial disease Orthostatic hypotension Atrial fibrillation, permanent Fistula left arm Diabetes type 2, controlled ESRD (end stage renal disease) on dialysis Hyperlipidemia Hypertension Presence of arteriovenous fistula for hemodialysis, primary Surgical History S/P carotid endarterectomy History of tooth extraction History of surgery on arm Family History Mother , age 65 of cancer -uncertain type Cancer Father , in his 50s of cancer Stomach cancer Esophagus cancer Cancer Cancer of bowel Sister Kidney stone Social History Smoking Status: Unknown if ever smoked Second Hand Exposure: No; Do You Dip or Chew Tobacco: No; Hx Alcohol Use: No Hx Substance Use: No Preferred Language: Korean Communication Ability: Impaired Communication Ability Comment: HX STROKE - SPEECH GARBLED. Visual Impairment: Limited Hearing Ability: Hard of Hearing Shoe Coverer Required: No Beliefs That Will Affect Care: None marital status: Current Living Situation: Family Current Living Situation Comment: daughter lives w/ patient current occupational status: retired current occupation: retired age 64 from [employer] How many Children do You have: 1 How many Children do You have Comment: Daughter takes care of patient, grandchildren also assist with care as needed. Other Information That Helps Us Care for You: No Feels Safe at Home: Yes Safety Concerns: Feels Safe At This Time Diet: regular during the past year weight has: decreased > 10 lbs Assistive Devices: Glasses, Hospital Bed and Walker Review of Systems Review of Systems: All systems reviewed & are unremarkable except as noted in HPI & below Physical Exam Constitutional: + ill appearing, + frail appearing, coop erative and comfortable Eyes: normal visual farfan by confrontation Neck: normal visual inspection Respiratory: normal respiratory effort Cardiovascular: Rate/Rhythm: + irregularly irregular Vessels: posterior tibial pulses present and dorsalis pedis pulses present Musculoskeletal: Extremities: + limited ROM of extremities Skin: + ulcer (Bilateral necrotic heels with e xposed calcaneus) Neurologic: Absent epicritic senation Psychiatric: Orientation: alert and oriented x 3 Results & Data Vital Signs (Past 12 Hours) Vital Signs Temp Pulse Pulse Resp BP BP BP 03/15/23 19:57 36.9 C 97 H 18 121/66 03/15/23 16:02 03/15/23 15:47 36.5 C 91 H 18 95/27 L 03/15/23 15:46 36.5 C 91 H 20 95/27 L 03/15/23 14:31 86 18 03/15/23 14:31 94/40 L 03/15/23 14:30 85 18 03/15/23 14:21 84 21 03/15/23 14:21 95/57 L 03/15/23 14:15 90 20 03/15/23 14:11 91 H 19 03/15/23 14:11 100/37 L 03/15/23 14:01 92 H 22 03/15/23 14:01 106/48 L 03/15/23 14:01 106/48 L 03/15/23 14:00 93 H 26 H 03/15/23 13:50 83/65 L 03/15/23 13:50 91 H 20 03/15/23 13:45 100 H 20 03/15/23 13:42 114/29 L 03/15/23 13:42 94 H 19 03/15/23 13:32 94 H 22 03/15/23 13:32 80/32 L 03/15/23 13:30 113 H 20 03/15/23 13:21 96 H 20 03/15/23 13:21 99/69 L 03/15/23 13:15 101 H 20 03/15/23 13:10 108/44 L 03/15/23 13:10 93 H 19 03/15/23 13:00 108/41 L 03/15/23 13:00 86 22 03/15/23 12:50 101/58 L 03/15/23 12:50 88 18 03/15/23 12:45 96 H 22 03/15/23 12:41 97/31 L 03/15/23 12:41 92 H 22 03/15/23 12:33 88 03/15/23 12:30 100/47 L 03/15/23 12:30 89 18 03/15/23 12:21 122 H 21 03/15/23 12:21 90/52 L 03/15/23 12:15 98 H 18 03/15/23 12:10 103 H 19 03/15/23 12:10 116/42 L 03/15/23 12:01 89 19 03/15/23 12:01 93/37 L 03/15/23 12:00 92 H 19 03/15/23 11:50 121/52 L 03/15/23 11:50 103 H 19 03/15/23 11:45 102 H 19 03/15/23 11:40 88 19 03/15/23 11:40 98/61 L 03/15/23 11:30 94 H 18 03/15/23 11:30 101/55 L 03/15/23 11:21 96 H 20 99/32 L 03/15/23 11:21 97 H 19 03/15/23 11:15 102 H 18 03/15/23 11:10 99/40 L 03/15/23 11:10 142 H 20 82/50 L 03/15/23 11:05 108 H 18 03/15/23 11:05 96 H 20 03/15/23 11:00 109 H 22 03/15/23 10:58 94 H 19 65/42 L 03/15/23 10:51 108 H 17 65/42 L 03/15/23 10:49 110 H 19 45/34 L 03/15/23 10:37 36.8 C 68 20 Pulse Ox O2 Del Method 03/15/23 19:57 93 Room Air 03/15/23 16:02 Room Air 03/15/23 15:47 98 Room Air 03/15/23 15:46 98 Room Air 03/15/23 14:31 03/15/23 14:31 03/15/23 14:30 03/15/23 14:21 03/15/23 14:21 03/15/23 14:15 03/15/23 14:11 03/15/23 14:11 03/15/23 14:01 100 03/15/23 14:01 03/15/23 14:01 03/15/23 14:00 99 03/15/23 13:50 03/15/23 13:50 96 03/15/23 13:45 97 03/15/23 13:42 03/15/23 13:42 97 03/15/23 13:32 03/15/23 13:32 03/15/23 13:30 03/15/23 13:21 03/15/23 13:21 03/15/23 13:15 03/15/23 13:10 03/15/23 13:10 03/15/23 13:00 03/15/23 13:00 97 03/15/23 12:50 03/15/23 12:50 91 03/15/23 12:45 95 03/15/23 12:41 03/15/23 12:41 84 L 03/15/23 12:33 03/15/23 12:30 03/15/23 12:30 92 03/15/23 12:21 92 03/15/23 12:21 03/15/23 12:15 94 03/15/23 12:10 92 03/15/23 12:10 03/15/23 12:01 95 03/15/23 12:01 03/15/23 12:00 97 03/15/23 11:50 03/15/23 11:50 97 03/15/23 11:45 95 03/15/23 11:40 97 03/15/23 11:40 03/15/23 11:30 93 03/15/23 11:30 03/15/23 11:21 03/15/23 11:21 03/15/23 11:15 03/15/23 11:10 03/15/23 11:10 03/15/23 11:05 03/15/23 11:05 94 Room Air 03/15/23 11:00 03/15/23 10:58 03/15/23 10:51 03/15/23 10:49 03/15/23 10:37 98 Room Air Diagnostic Findings [place], [place] [phone] Magnetic Resonance Report Patient: JENIFFER JUNIOR Admit Date: 03/15/23 MR#: [id number] Address1: [address] [facility] Acct ID:[id number] Address2: Date: 1950 [facility] Zip: [place] [address] Age: 72 Location: 4W Sex: M [facility] Att Phy: Rickey Moran MD Diagnosis: BILATERAL OSTEOMYELITIS,HYPOTENSION Areli Phy: Tamiko Donovan DO Service Date: 03/15/23 Fam Phy: Interpreting Phy: Federico Basilio MDAdmit Phy: Rickey Moran MD Ordering Phy: Rickey Moran MD cc: ~ MRI OF THE RIGHT ANKLE WITHOUT IV CONTRAST CLINICAL HISTORY: Infection. COMPARISON STUDY: Radiographs of the right calcaneus dated 02/17/2023. MRI of the right ankle dated 02/17/2023. TECHNIQUE: MRI of the right ankle is performed utilizing various T1 and T2- weighted sequences in the axial, sagittal, and coronal planes. IV contrast was not administered for this examination. FINDINGS: There is no MRI evidence of acute fracture. A wound is seen overlying the posterolateral aspect of the heel. There is marrow edema within the underlying calcaneus with drop in T1 signal and cortical loss. This is consistent with osteomyelitis. No additional foci of similar appearing marrow change are identified throughout the right ankle to suggest osteomyelitis. The ankle mortise is intact. There is no osteochondral defect in the talar dome. A small ankle joint effusion is noted. The Achilles tendon is normal in morphology and signal intensity. The anterior, posterior, and peroneal tendons are intact. There is mild tenosynovitis of the tibialis posterior and peroneal tendons. No fluid collection is seen to indicate abscess. There is only mild soft tissue edema around the ankle and heel. The anterior talofibular and deltoid ligaments are intact. Imaged portions of the plantar fascia are normal in appearance. There is a dorsal heel spur. IMPRESSION: 1. There is a wound overlying the posterolateral aspect of the heel with underlying calcaneal osteomyelitis. 2. No fluid collection is seen to suggest abscess. 3. Additional findings as above. Electronically signed by: Federico Basilio M.D. 03/15/2023 7:58 PM Dictated: 03/15/231919 Transcribed: 03/15/231919 [place], [place] [phone] Magnetic Resonance Report Patient: JENIFFER JUNIOR Admit Date: 03/15/23 MR#: [id number] Address1: [address] [place] [address] Acct ID:[id number] Address2: Date: 1950 [facility] Zip: [place] [address] Age: 72 Location: 4W Sex: M Room/Bed: [facility] Att Phy: Rickey Moran MD Diagnosis: BILATERAL OSTEOMYELITIS,HYPOTENSION Areli Phy: Tamiko Donovan DO Service Date: 03/15/23 Fam Phy: Interpreting Phy: Federico Basilio [facility] Phy: Rickey Moran MD Ordering Phy: Rickey Moran MD cc: ~ MRI OF THE LEFT ANKLE WITHOUT IV CONTRAST CLINICAL HISTORY: Infection. Possible osteomyelitis. COMPARISON STUDY: Radiographs of the left ankle dated 04/25/2022. TECHNIQUE: MRI of the left ankle was performed utilizing various T1 and T2- weighted sequences in the axial, sagittal, and coronal planes. IV contrast was not administered for this examination. FINDINGS: There is no MRI evidence of fracture. A wound is suggested overlying the heel. There is marrow edema within the posterolateral aspect of the calcaneus, best seen on axial image #33. This shows increased T2 signal and drop in T1 signal with erosion of the overlying cortex. This is consistent with osteomyelitis. No additional foci of similar-appearing marrow change are identified throughout the ankle. The ankle mortise is intact. No osteochondral defect is seen in the talar dome. There is trace ankle joint effusion. The Achilles tendon is normal in morphology and signal intensity. The anterior, posterior, and peroneal tendons appear intact. There is mild tenosynovitis of the peroneal tendons and tibialis posterior. The anterior talofibular ligament is maintained. The deltoid ligament is intact. Imaged portions of the plantar fascia are normal. Subcutaneous soft tissue edema is present around the heel. Foci of susceptibility artifact in the heel may may represent foci of gas versus micrometallic foreign bodies. There is evidence of a nonspecific myositis of the regional musculature. No organized fluid collection is seen to suggest abscess on this unenhanced examination. IMPRESSION: 1. Heel wound with evidence of calcaneal osteomyelitis. 2. There is cellulitis of the heel. No fluid collection is seen to suggest abscess. 3. The ankle tendons appear intact. 4. There is tenosynovitis of the peroneal and tibialis posterior tendons. 5. Additional findings as above. Electronically signed by: Federico Basilio M.D. 03/15/2023 7:53 PM Dictated: 03/15/231839 Transcribed: 03/15/231839
[2023-03-16] MEDS ORDERED: fentaNYL citrate PF 100 MCG/2 ML VIAL ONE ×2 (08:00→11:28)
[2023-03-16] MEDS ORDERED: MIDAZOLAM HCL 1 MG/ML 2ML VIAL ONE (08:00)
[2023-03-16] MEDS ORDERED: KETAMINE HCL 10MG/ML SYR ONE (09:08)
--- NOTE | 2023-03-16 10:11 | History & Physical Bridge Note ---
Date of Service March 16, 2023 History & Physical Bridge Note I have examined the patient, reviewed the History & Physical and in the interval since the performance of the History & Physical I have noted the following changes of clinical significance: no changes noted
--- NOTE | 2023-03-16 10:12 | Post Operative Brief Note ---
Immediate Post Op Note v1 Date of Surgery March 16, 2023 Pre & Post Diagnosis Operation Date: 03/16/23 09:30 <No data on this case meets the specified criteria> I identified the patient and participated in the time-out.: Yes Procedure Operation Date: 03/16/23 09:30 <No data on this case meets the specified criteria> Surgeon Sorin Marti, COREEN, MS Scaffold Worker None Estimated Blood Loss 20 Findings Consistent with Post-Op Diagnosis consistent with pre operative diagnosis Specimens TMA metatarsals clear margins Right - pathology
[2023-03-16] MEDS ORDERED: LIDOCAINE 2% 2 ML VIAL/AMP(20MG/ML) INFIL ONE (10:26)
[2023-03-16] MEDS ORDERED: PROPOFOL IV EMULSION 10 MG/ML 20 ML VIAL IV ONE (10:26)
[2023-03-16] MEDS ORDERED: GLYCOPYRROLATE 0.2 MG/ML VIAL ONE (10:26)
[2023-03-16] MEDS ORDERED: ONDANSETRON INJ 2 MG/ML 2 ML VIAL ONE (10:26)
[2023-03-16] MEDS ORDERED: PHENYLEPHRINE 100MCG/ML 10ML SYR IV ONE (10:26)
--- NOTE | 2023-03-16 11:02 | Post Operative Brief Note ---
Immediate Post Op Note v1 Date of Surgery March 16, 2023 Pre & Post Diagnosis Operation Date: 03/16/23 09:30 <No data on this case meets the specified criteria> I identified the patient and participated in the time-out.: Yes Procedure Operation Date: 03/16/23 09:30 <No data on this case meets the specified criteria> Surgeon Sorin Marti, COREEN, MS Roll Icer None Estimated Blood Loss 20 Findings Consistent with Post-Op Diagnosis consistent with pre operative diagnosis Specimens Right calaneus bone- pathology Right calcaneus bone - microbioloy Left calcaneus bone - pathology Left calcaneus bone -microbiology
[2023-03-16] MEDS ORDERED: ATROPINE SULFATE 0.1 MG/ML 10ML SYR IV PRN (11:26)
[2023-03-16] MEDS: fentaNYL citrate PF 100 MCG/2 ML VIAL IV PRN ×4 (11:29→11:44)
--- NOTE | 2023-03-16 11:45 | Anesthesiology Progress Note ---
Date of Service March 16, 2023 Anesthesia Post Procedure Vital Signs Vital Signs: Temp Pulse Pulse Pulse Resp BP BP 03/16/23 11:35 96 H 13 03/16/23 11:25 100 H 12 03/16/23 11:15 97 H 14 03/16/23 11:07 36.1 C L 104 H 14 03/16/23 07:25 36.7 C 95 H 16 129/94 03/16/23 03:02 36.6 C 95 H 18 03/16/23 01:03 36.6 C 86 16 03/15/23 22:00 03/15/23 21:53 85 03/15/23 19:57 36.9 C 97 H 18 121/66 03/15/23 16:02 03/15/23 15:47 36.5 C 91 H 18 03/15/23 15:46 36.5 C 91 H 20 03/15/23 14:31 86 18 03/15/23 14:31 94/40 L 03/15/23 14:30 85 18 03/15/23 14:21 84 21 03/15/23 14:21 95/57 L 03/15/23 14:15 90 20 03/15/23 14:11 91 H 19 03/15/23 14:11 100/37 L 03/15/23 14:01 92 H 22 03/15/23 14:01 106/48 L 03/15/23 14:01 106/48 L 03/15/23 14:00 93 H 26 H 03/15/23 13:50 83/65 L 03/15/23 13:50 91 H 20 03/15/23 13:45 100 H 20 03/15/23 13:42 114/29 L 03/15/23 13:42 94 H 19 03/15/23 13:32 94 H 22 03/15/23 13:32 80/32 L 03/15/23 13:30 113 H 20 03/15/23 13:21 96 H 20 03/15/23 13:21 99/69 L 03/15/23 13:15 101 H 20 03/15/23 13:10 108/44 L 03/15/23 13:10 93 H 19 03/15/23 13:00 108/41 L 03/15/23 13:00 86 22 03/15/23 12:50 101/58 L 03/15/23 12:50 88 18 03/15/23 12:45 96 H 22 03/15/23 12:41 97/31 L 03/15/23 12:41 92 H 22 03/15/23 12:33 88 03/15/23 12:30 100/47 L 03/15/23 12:30 89 18 03/15/23 12:21 122 H 21 03/15/23 12:21 90/52 L 03/15/23 12:15 98 H 18 03/15/23 12:10 103 H 19 03/15/23 12:10 116/42 L 03/15/23 12:01 89 19 03/15/23 12:01 93/37 L 03/15/23 12:00 92 H 19 03/15/23 11:50 121/52 L 03/15/23 11:50 103 H 19 03/15/23 11:45 102 H 19 BP Pulse Ox O2 Del Method O2 Flow Rate 03/16/23 11:35 103/62 95 Room Air 03/16/23 11:25 103/66 96 Room Air 03/16/23 11:15 120/52 L 97 Oxymask 4 03/16/23 11:07 97/72 L 100 Oxymask 6 03/16/23 07:25 98 Room Air 03/16/23 03:02 143/73 H 95 Room Air 03/16/23 01:03 145/76 H 97 Room Air 03/15/23 22:00 Room Air 03/15/23 21:53 03/15/23 19:57 93 Room Air 03/15/23 16:02 Room Air 03/15/23 15:47 95/27 L 98 Room Air 03/15/23 15:46 95/27 L 98 Room Air 03/15/23 14:31 03/15/23 14:31 03/15/23 14:30 03/15/23 14:21 03/15/23 14:21 03/15/23 14:15 03/15/23 14:11 03/15/23 14:11 03/15/23 14:01 100 03/15/23 14:01 03/15/23 14:01 03/15/23 14:00 99 03/15/23 13:50 03/15/23 13:50 96 03/15/23 13:45 97 03/15/23 13:42 03/15/23 13:42 97 03/15/23 13:32 03/15/23 13:32 03/15/23 13:30 03/15/23 13:21 03/15/23 13:21 03/15/23 13:15 03/15/23 13:10 03/15/23 13:10 03/15/23 13:00 03/15/23 13:00 97 03/15/23 12:50 03/15/23 12:50 91 03/15/23 12:45 95 03/15/23 12:41 03/15/23 12:41 84 L 03/15/23 12:33 03/15/23 12:30 03/15/23 12:30 92 03/15/23 12:21 92 03/15/23 12:21 03/15/23 12:15 94 03/15/23 12:10 92 03/15/23 12:10 03/15/23 12:01 95 03/15/23 12:01 03/15/23 12:00 97 03/15/23 11:50 03/15/23 11:50 97 03/15/23 11:45 95 Pain Intensity Bilateral Calf: Pain Intensity: 2 Bilateral Foot: Pain Intensity: 5 Transfer of Care Handoff Completed per policy Notes Mental Status: alert / awake / arousable Patient Amnestic to Procedure: Yes Nausea / Vomiting: adequately controlled Pain: adequately controlled Airway Patency, RR, SpO2: stable & adequate BP & HR: stable & adequate Hydration State: stable & adequate Anesthetic Complications: no major complications apparent
[2023-03-16] MEDS: MIDODRINE HCL 2.5 MG TAB PO SCH ×3 (12:24→17:45)
[2023-03-16] MEDS: SEVELAMER HCL 800 MG TABLET PO SCH ×3 (12:24→17:45)
[2023-03-16] MEDS: ADVANCED PROBIOTIC 1250 MG CAPSULE PO SCH (12:51)
[2023-03-16] MEDS: FLUDROCORTISONE ACETATE 0.1 MG TAB PO SCH (12:51)
[2023-03-16] MEDS: CLOPIDOGREL BISULFATE 75 MG TAB PO SCH (12:51)
[2023-03-16] MEDS: NEPHROCAPS PO SCH (12:51)
[2023-03-16] MEDS: FOLIC ACID 1 MG TAB PO SCH ×2 (12:51→23:05)
--- NOTE | 2023-03-16 13:54 | Operative Report ---
Post Operative Report Pre & Post Diagnosis Operation Date: 03/16/23 09:30 Pre-Op Diagnosis: Bilateral Feet Osteomyelitis Post-Op Diagnosis: Bilateral Feet Osteomyelitis I identified the patient and participated in the time-out.: Yes Procedure Operation Date: 03/16/23 09:30 Actual Procedures p Bilateral Heel Wound Debridement(Bilateral) - Sorin Marti DPM, MS Surgeon Sorin Marti DPM, MS Charter Coach Driver None Estimated Blood Loss 5 Findings Consistent with Post-Op Diagnosis consistent with pre operative orders Specimens 1.) Right calcaneus - microbiology 2.) Right calcaneus - pathology 3.) Left calcaneus - microbiology 4.) Left calcaneus - pathology Description of Procedure History of present illness: Patient is a type II diabetic, 59 year old male who has extensive history of Left and Right heel wounds. Patient MRI (+) for right and left calcaneal osteomyelitis. He is seen today for Right and Left wound debridement and Right and Left calcaneus ostectomy. I have reviewed the procedure and post operative recovery with Patient in detail. Patient is at high risk for limb loss. All questions answered. All potential risks, benefits, complications, alternatives, rehab, potential for incomplete relief of symptoms, need for further surgery, DVT, PE, , persistent pain, swelling, scarring, weakness, neurovascular, wound complications and potential for amputations were discussed with patient. Unwanted outcomes such as, but not limited to were reviewed including under correction, overcorrection, return of deformity, infection. All questions were answered. Patient has decided to proceed with procedure as indicated. Preoperative diagnosis:1.) Right diabetic foot ulcer 2.) Right calcaneus Osteomyelitis 3.) Left diabetic foot ulcer 4.) Left calcaneus Osteomyelitis Postoperative diagnosis: Same Name of operation: 1.) Wound debridement with Right partial calcaneus ostectomy 2.)Wound debridement with Left partial calcaneus ostectomy Surgeon: Dr. Marti Charter Coach Driver: None Anesthesia: General Estimated blood loss: 20ml Procedure in detail: Under mild sedation the patient was brought in the operating room placed on the operating table in supine position. Patient was then converted to prone position. Following sedation the right and left foot and ankle were prepped, scrubbed, and draped, in the usual aseptic manner First, attention was directed to the distal aspect of the right heel where a non healing Diabetic full thickness ulcer was located with exposed necrotic bone. The wound measured roughly 6 x 5 x 2 cm. Next, utilizing a sharp, sterile, 15 blade necrotic tissue was excised over the wound bed from the retrocalcaneal aspect of the right heel. The wound was debrided sharply down to necrotic bone. At this time utilizing an oscillating bone saw the osteomyelitis bone from the calcaneus was resected. The bone was removed and placed on the back table. The wound measurements were roughly 6 x 5 x 3 cm. At the interface of the excised bone there was no signs of infection or necrosis. Source control and clear margins were observed. A portion of the excised bone was sent to Pathology for clear margins and a portion was sent to microbiology for culture and sensitives. Next, attention was directed to the distal aspect of the left heel where a non healing Diabetic full thickness ulcer was located with exposed necrotic bone. The wound measured roughly 6 x 6 x 2 cm. Next, utilizing a sharp, sterile, 15 blade necrotic tissue was excised over the wound bed from the retrocalcaneal aspect of the left heel. The wound was debrided sharply down to necrotic bone. At this time utilizing an oscillating bone saw the osteomyelitis bone from the left calcaneus was resected. The bone was removed and placed on the back table. The wound measurements were roughly 6 x 6 x 3 cm. At the interface of the excised bone there was no signs of infection or necrosis. Source control and clear margins were observed. A portion of the excised bone was sent to Pathology for clear margins and a portion was sent to microbiology for culture and se nsitives. At this time instrumentation was switched and top gloves were removed. 1 Liter of lactate ringer was perfused low flow over the left and right heel wounds. The wounds were then dressed with Adaptic followed by sterile compressive dressing consisting of 4 x 4's, ABD and Dahlia. An Abhi wrap was then applied. The Patient tolerated the procedure and anesthesia well. The Patient was transferred to recovery room with vital signs. Following a period of Postoperative monitoring the Patient will be readmitted to the floor resuming all preoperative orders. I attest to the content of the Intraoperative Record and any orders documented therein. Any exceptions are noted below.
[2023-03-16] MEDS ORDERED: traMADol HCL 50 MG TABLET ONE (15:58)
[2023-03-16] MEDS: CEFEPIME 1,000 MG in SYRINGE 0 ML IV SCH (15:59)
[2023-03-16] MEDS ORDERED: HALOPERIDOL LACTATE 5 MG/ML 1 ML VIAL IM ONE (21:31)
--- NOTE | 2023-03-16 22:49 | Hospitalist Progress Note ---
Date of Service March 16, 2023 Assessment & Plan (1) Acute osteomyelitis of left calcaneus: Plan: Ankle MRI per podiatry recommendations Continue daptomycin and cefepime Consult podiatry for surgical management later today. (2) Acute osteomyelitis of right calcaneus: Plan: As above (3) PAD (peripheral artery disease): Plan: Continue clopidogrel, atorvastatin, apixaban on hold for surgery (4) Hematoma of right lower leg: Plan: Previous I&D, imprving per his daughter (5) End stage renal disease: Plan: Next due dialysis on Friday. Consult nephrology on Friday if patient is expected to stay in hospital for this. (6) Atrial fibrillation, permanent: Plan: Rate controlled without AV neal blocking agents Holding Eliquis for surgery Plan VTE prophylaxis - restart apixaban when okay by podiatry Diet - dialysis renal, n.p.o. after midnight Disposition - admit to PCU given significantly hypertensive on admission Admission and Anticipated Discharge Date Admission Date: March 15, 2023 Subjective Patient reports no new symptoms. Review of Systems Review of Systems: All systems reviewed & are unremarkable except as noted in HPI & below Physical Exam Constitutional: WD/WN, vitals as above Eyes: + anicteric sclerae; normal pupil size ENMT: external ear and nose normal, oropharynx normal Neck: trachea midline, no thyromegaly Respiratory: normal respiratory effort; no respiratory distress Auscultation: + diminished lung sounds (throughout); no crackles and no wheezes Cardiovascular: Rate/Rhythm: regular rate and + irregularly irregular Heart Sounds: no murmur Extremities: normal capillary refill and + pedal edema (trace); no calf tenderness Gastrointestinal (Abdomen): normal bowel sounds, soft, nontender, no hepatosplenomegaly Musculoskeletal: no cyanosis or clubbing, extremities motor strength 5/5 Skin: bilateral heel ulcers just wrapped. Shoaib cellulitis beyond dressing. Neurologic: moves all extremities and awake; not confused Psychiatric: A+Ox3, euthymic affect Results & Data Results & Data Vital Signs (Past 12 Hours) Vital Signs Temp Pulse Pulse Resp BP Pulse Ox O2 Del Method 03/16/23 19:00 36.7 C 78 18 119/73 93 Room Air 03/16/23 15:10 36.6 C 84 18 135/70 98 Room Air 03/16/23 14:10 36.3 C L 87 18 126/70 99 Room Air 03/16/23 13:10 36.3 C L 100 H 18 137/71 97 Room Air 03/16/23 12:40 36.4 C L 82 18 81/44 L 92 Room Air 03/16/23 12:10 36.7 C 98 H 18 120/76 94 Room Air 03/16/23 11:55 96 H 14 112/64 94 Room Air 03/16/23 11:45 36.4 C L 92 H 12 107/64 93 Room Air 03/16/23 11:35 96 H 13 103/62 95 Room Air 03/16/23 11:25 100 H 12 103/66 96 Room Air 03/16/23 11:15 97 H 14 120/52 L 97 Oxymask 03/16/23 11:07 36.1 C L 104 H 14 97/72 L 100 Oxymask O2 Flow Rate 03/16/23 19:00 03/16/23 15:10 03/16/23 14:10 03/16/23 13:10 03/16/23 12:40 03/16/23 12:10 03/16/23 11:55 03/16/23 11:45 03/16/23 11:35 03/16/23 11:25 03/16/23 11:15 4 03/16/23 11:07 6 PG Care Time/CCT Total # of Minutes Spent Total Time Spent with Patient: Total time spent is greater than 50% in coordination of care (as documented) at patient's floor/unit and/or counseling patient: Coding Level of Care Code 00018 SUB INP/OBS CARE MIN Diagnoses Acute osteomyelitis of left calcaneus M86.172 Acute osteomyelitis of right calcaneus M86.171 PAD (peripheral artery disease) I73.9 Hematoma of right lower leg S80.11XA End stage renal disease N18.6 Atrial fibrillation, permanent I48.21
[2023-03-16] MEDS: ATORVASTATIN 10 MG TAB PO SCH (23:05)
--- NOTE | 2023-03-17 06:06 | Electrocardiogram Report ---
Test Reason : Blood Pressure : / mmHG Vent. Rate : 094 BPM Atrial Rate : 000 BPM P-R Int : 000 ms QRS Dur : 084 ms QT Int : 288 ms P-R-T Axes : 000 049 268 degrees QTc Int : 360 ms Poor data quality, interpretation may be adversely affected Atrial fibrillation with premature ventricular or aberrantly conducted complexes Low voltage QRS Nonspecific ST and T wave abnormality Abnormal ECG When compared with ECG of 19-FEB-2023 03:35, QT has shortened Confirmed by Manny Amato ([id number]) on 03/17/2023 6:06:32 AM Referred By: Sorin Marti Confirmed By:Manny Amato
[2023-03-17 06:23] LABS: Hematocrit (blood only) 30.2 % (42.0-52.0); Hemoglobin 9.6 g/dl (14.0-18.0); Mean Corpuscular Hemoglobin 30.7 pg (25.0-34.0); Mean Corpuscular Hgb Conc 31.8 g/dL (32.0-36.0); Mean Corpuscular Volume 96.5 fL (80.0-100.0); Mean Platelet Volume 10.1 fL (9.4-12.4); Platelet Count 174 K/uL (130-400); RDW Coefficient of Variation 14.9 % (11.5-14.5); RDW Standard Deviation 52.8 fL (36.4-46.3); Red Blood Count 3.13 M/uL (4.70-6.10); White Blood Count 6.02 K/ul (4.8-10.8)
[2023-03-17 06:44] LABS: BUN Creatinine Ratio 7.3 (10-20); C Reactive Protein 1.17 mg/dl (0-0.5); Calcium 8.8 mg/dl (8.6-10.3); Creatinine Clr Calc Pharmacy 13.2 ml/min; Est GFR (African American) 10.4 ml/min
[2023-03-17] MEDS: CLOPIDOGREL BISULFATE 75 MG TAB PO SCH (09:44)
[2023-03-17] MEDS: FLUDROCORTISONE ACETATE 0.1 MG TAB PO SCH (09:44)
[2023-03-17] MEDS: MIDODRINE HCL 2.5 MG TAB PO SCH ×3 (09:44→16:58)
[2023-03-17] MEDS: ADVANCED PROBIOTIC 1250 MG CAPSULE PO SCH (09:44)
[2023-03-17] MEDS: FOLIC ACID 1 MG TAB PO SCH ×2 (09:44→20:47)
[2023-03-17] MEDS: SEVELAMER HCL 800 MG TABLET PO SCH ×3 (09:44→17:27)
[2023-03-17] MEDS: NEPHROCAPS PO SCH (09:46)
[2023-03-17] MEDS: traMADol HCL 50 MG TABLET PO PRN ×3 (09:48→20:46)
--- NOTE | 2023-03-17 11:06 | Nephrology Consultation ---
Date of Consultation March 17, 2023 Assessment & Plan (1) End stage renal disease: * Outaptient HD Rx: [facility] - TTS, 3.5hr, F-180NR, Qb450/Qd500, 3K Ca2.5 Na 137, EDW 97 kg, LUE AVF * Volume status and electrolyte balance are acceptable at this time. No acute indication for HD today. Will plan next HD for am (2) Acute osteomyelitis of right calcaneus: * s/p surgical debridement of bilateral heel wounds 03/16/23 * Remains on IV Cefepime, Daptomycin (3) Orthostatic hypotension: * Continue Midodrine 5 mg po TID (4) CVA (cerebral vascular accident): (5) Type 2 diabetes mellitus with complications: History of Present Illness Reason for Consultation: ESKD on HD Attending Physician: Osito Pelletier History of Present Illness Mr. Blue is a 72 year old male who is seen at the request of the [facility] Hospitalist Service to provide inpatient HD and assist w/ medical management. Information for the HPI is obtained from direct patient interview and review of the EMR. 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 He dialyzes TTS at [facility] (3.5hr, F-180NR, Qb450/Qd500, 3K Ca2.5 Na 137, EDW 97 kg, LUE AVF). His medical history is significant for AODM, HTN, mechanical fall resulting in fracture of L radius and ulna s/p surgical repair at [facility] 10/18, COVID + 02/18, atrial fibrillation (Apixaban), BPH (Tamsulosin stopped due to orthostasis), CVA 11/20 (L frontal lobe), and history of emphysematous pyelonephritis. Mr. Blue has suffered a functional decline following his CVA. He is now essentially wheelchair bound and has developed pressure ulcers on his heels. Mr. Blue was last admitted to [facility] 02/18/23-03/02/23 for surgical debridement of his heels. He was discharged to home w/ a PICC line in place and IV Daptomycin and Cefepime. Follow up at wound clinic 03/05/23 reveled that the R calcaneus was exposed. Mr. Blue was readmitted to [facility] 03/15/23 for surgical debridement of R calcareous osteomyelitis. I spoke w/ Dr. Pelletier this morning while making rounds. He requested Nephrology consultation to provide HD during patient's hospital stay. Mr. Blue underwent surgical debridement of bilateral heel wounds 03/16/23. Allergies Allergy/AdvReac Type Severity Reaction Status Date / Time amlodipine AdvReac Severe FLU Verified 03/05/23 13:20 [facility] Home Medications Medication Instructions Recorded Confirmed Type lidocaine-prilocaine 2.5 %-2.5 % 1 applic topical DIRECTED 08/17/20 03/15/23 History topical cream vit B complx, C-iron 8 mg-folic 1 tab PO DAILY 08/17/20 03/15/23 History acid 800 mcg-D3 1,000 unit-zinc tablet (ProRenal) clopidogrel 75 mg tablet 75 mg PO DAILY 02/13/22 03/15/23 History folic acid 1 mg tablet 1 mg PO BID 02/13/22 03/15/23 History sevelamer carbonate 800 mg tablet 800 mg PO TIDM 02/13/22 03/15/23 History apixaban 5 mg tablet (Eliquis) 5 mg PO BID #60 tabs 08/12/22 03/15/23 Rx acetaminophen 650 mg 1,300 mg PO DAILY PRN Pain 12/17/22 03/15/23 History tablet,extended release atorvastatin 10 mg tablet 10 mg PO HS 02/17/23 03/15/23 History midodrine 5 mg tablet 5 mg PO TIDM 02/17/23 03/15/23 History L.acidop,casei,lactis,rham-B.lact,ivan 2 cap PO DAILY #30 caps 03/02/23 03/15/23 Rx 625 mg (10 billion cell) capsule (Advanced Probiotic) cefepime 1 gram solution for 1 g IV DAILY@1430 03/15/23 03/15/23 History injection daptomycin 350 mg intravenous 450 mg IV TUTH@1430 03/15/23 03/15/23 History solution daptomycin 350 mg intravenous 700 mg IV SA@1430 03/15/23 03/15/23 History solution fludrocortisone 0.1 mg tablet 0.1 mg PO DAILY 03/15/23 03/15/23 History Patient History Medical History CVA (cerebral vascular accident) End stage renal disease Carotid arterial disease Orthostatic hypotension Atrial fibrillation, permanent Fistula left arm Diabetes type 2, controlled ESRD (end stage renal disease) on dialysis Hyperlipidemia Hypertension Presence of arteriovenous fistula for hemodialysis, primary Surgical History S/P carotid endarterectomy History of tooth extraction History of surgery on arm Family History Mother , age 65 of cancer -uncertain type Cancer Father , in his 50s of cancer Stomach cancer Esophagus cancer Cancer Cancer of bowel Sister Kidney stone Social History Smoking Status: Unknown if ever smoked Second Hand Exposure: No; Do You Dip or Chew Tobacco: No; Hx Alcohol Use: No Hx Substance Use: No Preferred Language: Lithuanian Communication Ability: Effective Communication Ability Comment: HX STROKE - SPEECH GARBLED. Visual Impairment: Limited Hearing Ability: Hard of Hearing Sponge Fisherman Required: No Beliefs That Will Affect Care: None marital status: Current Living Situation: Family Current Living Situation Comment: daughter lives w/ patient current occupational status: retired current occupation: retired age 64 from [employer] How many Children do You have: 1 How many Children do You have Comment: Daughter takes care of patient, grandchildren also assist with care as needed. Other Information That Helps Us Care for You: No Feels Safe at Home: Yes Safety Concerns: Feels Safe At This Time Diet: regular during the past year weight has: decreased > 10 lbs Assistive Devices: Walker and Wheelchair Review of Systems Constitutional: no fever Eyes: no problem reported Ear, Nose, Mouth, Throat: no problem reported Respiratory: no cough and no dyspnea Cardiovascular: no chest pain Gastrointestinal: no abdominal pain, no nausea and no diarrhea/loose stools Physical Exam Constitutional: + ill appearing; no acute distress Eyes: PERRL, conjunctivae normal, anicteric sclerae ENMT: external ear and nose normal, oropharynx normal Neck: trachea midline, no thyromegaly Respiratory: normal respiratory effort, lungs clear to auscultation Cardiovascular: RRR, no murmur, no edema Extremities: + AV fistula (LUE AVF + bruit) Gastrointestinal (Abdomen): normal bowel sounds, soft, nontender, no hepatosplenomegaly Skin: no rashes, warm and dry Neurologic: Speech / Cognition: + abnormal speech; normal cognition Psychiatric: Affect: euthymic affect Results & Data Vital Signs (Past 12 Hours) Vital Signs Temp Pulse Pulse Resp BP Pulse Ox O2 Del Method 03/17/23 08:06 86 03/17/23 07:15 36.5 C 83 18 158/75 H 94 Room Air 03/16/23 23:21 36.7 C 95 H 18 114/45 L 96 Room Air Laboratory Results Laboratory Results WBC 6.02 K/ul (4.8-10.8) 03/17/23 06:07 RBC 3.13 M/uL (4.70-6.10) L 03/17/23 06:07 Hgb 9.6 g/dl (14.0-18.0) L 03/17/23 06:07 Hct 30.2 % (42.0-52.0) L 03/17/23 06:07 MCV 96.5 fL (80.0-100.0) 03/17/23 06:07 MCH 30.7 pg (25.0-34.0) 03/17/23 06:07 MCHC 31.8 g/dL (32.0-36.0) L 03/17/23 06:07 RDW Std Deviation 52.8 fL (36.4-46.3) H 03/17/23 06:07 RDW Coeff of Mukul 14.9 % (11.5-14.5) H 03/17/23 06:07 Plt Count 174 K/uL (130-400) 03/17/23 06:07 MPV 10.1 fL (9.4-12.4) 03/17/23 06:07 Immature Gran % (Auto) 1.2 % 03/15/23 11:01 Neut % (Auto) 73.6 % 03/15/23 11:01 Lymph % (Auto) 14.4 % 03/15/23 11:01 [place] % (Auto) 9.4 % 03/15/23 11:01 Eos % (Auto) 0.7 % 03/15/23 11:01 Baso % (Auto) 0.7 % 03/15/23 11:01 Neut # (Auto) 5.07 K/uL (1.40-6.50) 03/15/23 11:01 Lymph # (Auto) 0.99 K/uL (1.20-3.40) L 03/15/23 11:01 [place] # (Auto) 0.65 K/uL (0.11-0.59) H 03/15/23 11:01 Eos # (Auto) 0.05 K/uL (0.00-0.50) 03/15/23 11:01 Baso # (Auto) 0.05 K/uL (0.00-0.20) 03/15/23 11:01 Immature Gran # (Auto) 0.08 K/uL (0.01-0.20) 03/15/23 11:01 Sodium 138 mmol/L (136-145) 03/17/23 06:07 Potassium 4.0 mmol/L (3.5-5.1) 03/17/23 06:07 Chloride 101 mmol/L (98-107) 03/17/23 06:07 Carbon Dioxide 31 mmol/L (21-32) 03/17/23 06:07 Anion Gap 6 (3-11) 03/17/23 06:07 BUN 42 mg/dl (6-23) H D 03/17/23 06:07 Creatinine 5.78 mg/dl (0.6-1.4) H* D 03/17/23 06:07 Est Cr Clr Drug Dosing 13.2 ml/min 03/17/23 06:07 Est GFR ( Amer) 10.4 ml/min 03/17/23 06:07 Est GFR (Non-Af Amer) 9.0 ml/min 03/17/23 06:07 BUN/Creatinine Ratio 7.3 (10-20) L 03/17/23 06:07 Glucose 112 mg/dl (70-99(Fasting)) H 03/17/23 06:07 POC Glucose 96 mg/dl (70-99) 03/16/23 11:18 Lactate 1.5 mmol/L (0.4-2.0) 03/15/23 13:31 Calcium 8.8 mg/dl (8.6-10.3) 03/17/23 06:07 Magnesium 1.8 mg/dl (1.7-2.4) 03/15/23 11:01 Total Bilirubin 0.5 mg/dl (0.2-1.0) 03/15/23 11:01 Direct Bilirubin 0.0 mg/dl (0-0.2) 03/15/23 11:01 AST 28 U/L (13-39) 03/15/23 11:01 ALT 17 U/L (7-52) 03/15/23 11:01 Alkaline Phosphatase 114 U/L (34-104) H 03/15/23 11:01 C-Reactive Protein 1.17 mg/dl (0-0.5) H 03/17/23 06:07 Total Protein 6.0 gm/dl (6.0-8.3) 03/15/23 11:01 Albumin 3.0 gm/dl (3.4-5.0) L 03/15/23 11:01 Procalcitonin 0.90 ng/ml (0-0.5) H 03/15/23 11:01 Nasal Screen MRSA (PCR) Negative (Negative) 03/16/23 05:48 SARS-CoV-2, RNA, NAAT NEGATIVE (NEGATIVE) 03/15/23 Unknown Impressions Chest X-Ray 03/15/23 11:05 SINGLE VIEW CHEST CLINICAL HISTORY: Sepsis. FINDINGS: An AP, portable, supine chest radiograph is compared to study dated 02/23/2023. Correlation is made with chest CT dated 10/31/2021. A right PICC line is unchanged in position. The heart is enlarged and noting atherosclerotic calcification of the thoracic aorta. The pulmonary vasculature is nondistended congested. Chronic interstitial thickening similar to previous. Scarring/atelectasis is noted at the lung bases. No airspace consolidation or large pleural effusion is identified. No pneumothorax is seen. The skeletal structures are osteopenic. There is chronic deformity of the left proximal humerus. A stent projects over the left apex IMPRESSION: Cardiomegaly with no active disease in the chest. ACT 112: Negative or not required by law. Electronically signed by: Federico Basilio M.D. 03/15/2023 11:31 AM Ankle MRI 03/15/23 16:25 MRI OF THE RIGHT ANKLE WITHOUT IV CONTRAST CLINICAL HISTORY: Infection. COMPARISON STUDY: Radiographs of the right calcaneus dated 02/17/2023. MRI of the right ankle dated 02/17/2023. TECHNIQUE: MRI of the right ankle is performed utilizing various T1 and T2- weighted sequences in the axial, sagittal, and coronal planes. IV contrast was not administered for this examination. FINDINGS: There is no MRI evidence of acute fracture. A wound is seen overlying the posterolateral aspect of the heel. There is marrow edema within the underlying calcaneus with drop in T1 signal and cortical loss. This is consistent with osteomyelitis. No additional foci of similar appearing marrow change are identified throughout the right ankle to suggest osteomyelitis. The ankle mortise is intact. There is no osteochondral defect in the talar dome. A small ankle joint effusion is noted. The Achilles tendon is normal in morphology and signal intensity. The anterior, posterior, and peroneal tendons are intact. There is mild tenosynovitis of the tibialis posterior and peroneal tendons. No fluid collection is seen to indicate abscess. There is only mild soft tissue edema around the ankle and heel. The anterior talofibular and deltoid ligaments are intact. Imaged portions of the plantar fascia are normal in appearance. There is a dorsal heel spur. IMPRESSION: 1. There is a wound overlying the posterolateral aspect of the heel with underlying calcaneal osteomyelitis. 2. No fluid collection is seen to suggest abscess. 3. Additional findings as above. Electronically signed by: Federico Basilio M.D. 03/15/2023 7:58 PM PG Care Time/CCT Total # of Minutes Spent Total Time Spent with Patient: Total time spent is greater than 50% in coordination of care (as documented) at patient's floor/unit and/or counseling patient: Coding Level of Care Code 14885 IN/OBS CONSULT LVL 5,80M Diagnoses End stage renal disease N18.6 Acute osteomyelitis of right calcaneus M86.171 Orthostatic hypotension I95.1 CVA (cerebral vascular accident) I63.9 Type 2 diabetes mellitus with complications E11.8
[2023-03-17] MEDS: CEFEPIME 1,000 MG in SYRINGE 0 ML IV SCH (13:44)
[2023-03-17 14:38] LABS: Hematocrit (blood only) 28.5 % (42.0-52.0); Hemoglobin 9.2 g/dl (14.0-18.0)
[2023-03-17] MEDS: ATORVASTATIN 10 MG TAB PO SCH (20:47)
--- NOTE | 2023-03-17 22:14 | Hospitalist Progress Note ---
Date of Service March 17, 2023 Assessment & Plan (1) Acute osteomyelitis of left calcaneus: Plan: Ankle MRI per podiatry recommendations Continue daptomycin and cefepime S/ P Debridement of bilateral heels. Patient however has been bleeding. Dressing applied. will monitor his hemoglobin. (2) Acute osteomyelitis of right calcaneus: Plan: As above (3) PAD (peripheral artery disease): Plan: Continue clopidogrel, atorvastatin, apixaban on hold for surgery (4) Hematoma of right lower leg: Plan: Previous I&D, imprving per his daughter (5) End stage renal disease: Plan: Next due dialysis on Friday. Consult nephrology on Friday if patient is expected to stay in hospital for this. (6) Atrial fibrillation, permanent: Plan: Rate controlled without AV neal blocking agents Holding Eliquis for surgery Plan VTE prophylaxis - restart apixaban when okay by podiatry Diet - dialysis renal, n.p.o. after midnight Disposition - admit to PCU given significantly hypertensive on admission Admission and Anticipated Discharge Date Admission Date: March 15, 2023 Subjective 72 yo male reports no new symptoms. Review of Systems Review of Systems: All systems reviewed & are unremarkable except as noted in HPI & below Physical Exam Constitutional: WD/WN, vitals as above Eyes: + anicteric sclerae; normal pupil size ENMT: external ear and nose normal, oropharynx normal Neck: trachea midline, no thyromegaly Respiratory: normal respiratory effort; no respiratory distress Auscultation: + diminished lung sounds (throughout); no crackles and no wheezes Cardiovascular: Rate/Rhythm: regular rate and + irregularly irregular Heart Sounds: no murmur Extremities: normal capillary refill and + pedal edema (trace); no calf tenderness Gastrointestinal (Abdomen): normal bowel sounds, soft, nontender, no hepatosplenomegaly Musculoskeletal: no cyanosis or clubbing, extremities motor strength 5/5 Neurologic: moves all extremities and awake; not confused Psychiatric: A+Ox3, euthymic affect Results & Data Results & Data Vital Signs (Past 12 Hours) Vital Signs Temp Pulse Resp BP Pulse Ox O2 Del Method 03/17/23 19:00 36.7 C 87 20 120/74 95 Room Air 03/17/23 15:57 36.5 C 103 H 18 154/72 H 96 Room Air 03/17/23 11:34 Room Air 03/17/23 11:00 36.3 C L 72 18 106/67 97 Room Air PG Care Time/CCT Total # of Minutes Spent Total Time Spent with Patient: Total time spent is greater than 50% in coordination of care (as documented) at patient's floor/unit and/or counseling patient: Coding Level of Care Code 44119 SUB INP/OBS CARE 2/35MIN Diagnoses Acute osteomyelitis of left calcaneus M86.172 Acute osteomyelitis of right calcaneus M86.171 PAD (peripheral artery disease) I73.9 Hematoma of right lower leg S80.11XA End stage renal disease N18.6 Atrial fibrillation, permanent I48.21
[2023-03-18] MEDS: traMADol HCL 50 MG TABLET PO PRN ×3 (00:50→21:00)
[2023-03-18 04:49] LABS: Hematocrit (blood only) 27.5 % (42.0-52.0); Hemoglobin 8.8 g/dl (14.0-18.0); Mean Corpuscular Hemoglobin 30.9 pg (25.0-34.0); Mean Corpuscular Volume 96.5 fL (80.0-100.0); Mean Platelet Volume 10.6 fL (9.4-12.4); Platelet Count 206 K/uL (130-400); RDW Coefficient of Variation 14.5 % (11.5-14.5); RDW Standard Deviation 51.2 fL (36.4-46.3); Red Blood Count 2.85 M/uL (4.70-6.10); White Blood Count 8.54 K/ul (4.8-10.8)
[2023-03-18 05:10] LABS: Creatinine Clr Calc Pharmacy 10.9 ml/min; Est GFR (African American) 8.2 ml/min; Est GFR (Non-African American) 7.1 ml/min; Potassium 4.4 mmol/L (3.5-5.1)
[2023-03-18] MEDS ORDERED: HEPARIN SOD (PORCINE) 1000 UNIT/ML IV SCH (07:00)
[2023-03-18] MEDS ORDERED: EPOETIN ALFA 10,000 UNITS/ML VIAL IV ONE (07:00)
[2023-03-18] MEDS ORDERED: SODIUM CHLORIDE 0.9% 1,000 ML IV PRN (07:00)
[2023-03-18] MEDS ORDERED: HEPARIN SOD (PORCINE) 1000 UNIT/ML IV ONE (07:00)
[2023-03-18] MEDS: ADVANCED PROBIOTIC 1250 MG CAPSULE PO SCH (08:35)
[2023-03-18] MEDS: MIDODRINE HCL 2.5 MG TAB PO SCH ×3 (08:35→17:27)
[2023-03-18] MEDS: FOLIC ACID 1 MG TAB PO SCH ×2 (08:35→21:01)
[2023-03-18] MEDS: CLOPIDOGREL BISULFATE 75 MG TAB PO SCH (08:35)
[2023-03-18] MEDS: NEPHROCAPS PO SCH (08:36)
[2023-03-18] MEDS: SEVELAMER HCL 800 MG TABLET PO SCH ×3 (08:36→17:27)
[2023-03-18] MEDS: FLUDROCORTISONE ACETATE 0.1 MG TAB PO SCH (08:36)
--- NOTE | 2023-03-18 08:59 | Nephrology Progress Note ---
Date of Service March 18, 2023 Assessment & Plan (1) End stage renal disease: Plan: * Outaptient HD Rx: [facility] - TTS, 3.5hr, F-180NR, Qb450/Qd500, 3K Ca2.5 Na 137, EDW 97 kg, LUE AVF * Will provide heparin free HD today. Orders placed in EMR and HD RN notified (2) Acute osteomyelitis of right calcaneus: Plan: * s/p surgical debridement of bilateral heel wounds 03/16/23 * Remains on IV Cefepime, Daptomycin * R heel dressing saturated w/ blood this am. Podiatry to reassess operative site (3) Orthostatic hypotension: Plan: * Continue Midodrine 5 mg po TID (4) CVA (cerebral vascular accident): (5) Type 2 diabetes mellitus with complications: Admission and Anticipated Discharge Date Admission Date: March 15, 2023 Subjective Mr. Blue was evaluated in his hospital room this morning. He was oriented to self and place. He voiced no medical concerns. residential treatment staff noted that R heel dressing was saturated with blood and Podiatry has been paged to reassess operative site Review of Systems Constitutional: no fever Eyes: no problem reported Ear, Nose, Mouth, Throat: no problem reported Respiratory: no cough and no dyspnea Cardiovascular: no chest pain Gastrointestinal: no abdominal pain, no nausea and no diarrhea/loose stools Physical Exam Constitutional: + ill appearing; no acute distress Eyes: PERRL, conjunctivae normal, anicteric sclerae ENMT: external ear and nose normal, oropharynx normal Neck: trachea midline, no thyromegaly Respiratory: normal respiratory effort, lungs clear to auscultation Cardiovascular: RRR, no murmur, no edema Extremities: + AV fistula (LUE AVF + bruit) Gastrointestinal (Abdomen): normal bowel sounds, soft, nontender, no hep atosplenomegaly Skin: no rashes, warm and dry Neurologic: Speech / Cognition: + abnormal speech; normal cognition Psychiatric: Affect: euthymic affect Results & Data Vital Signs (Past 12 Hours) Vital Signs Temp Pulse Pulse Resp BP Pulse Ox O2 Del Method 03/18/23 07:11 36.3 C L 69 17 120/82 93 Room Air 03/18/23 02:28 37.0 C 103 H 20 96/54 L 97 Room Air 03/17/23 23:00 36.5 C 110 H 18 96/48 L 96 Room Air 03/17/23 21:53 99 H Laboratory Results Laboratory Results - last 24 hr 03/17/23 03/18/23 14:18 04:02 WBC 8.54 RBC 2.85 L Hgb 9.2 L 8.8 L Hct 28.5 L 27.5 L MCV 96.5 MCH 30.9 MCHC 32.0 RDW Std Deviation 51.2 H RDW Coeff of Mukul 14.5 Plt Count 206 MPV 10.6 Sodium 135 L Potassium 4.4 Chloride 98 Carbon Dioxide 26 Anion Gap 11 BUN 56 H Creatinine 7.01 H* D Est Cr Clr Drug Dosing 10.9 Est GFR ( Amer) 8.2 Est GFR (Non-Af Amer) 7.1 BUN/Creatinine Ratio 8.0 L Glucose 187 H Calcium 9.0 Total Creatine Kinase 139 PG Care Time/CCT Total # of Minutes Spent Total Time Spent with Patient: Total time spent is greater than 50% in coordination of care (as documented) at patient's floor/unit and/or counseling patient: Coding Level of Care Code 79381 SUB INP/OBS CARE 3/50MIN Diagnoses End stage renal disease N18.6 Acute osteomyelitis of right calcaneus M86.171 Orthostatic hypotension I95.1 CVA (cerebral vascular accident) I63.9 Type 2 diabetes mellitus with complications E11.8
[2023-03-18] MEDS ORDERED: METOPROLOL TARTRATE 1 MG/ML VIAL IV ONE (09:56)
[2023-03-18] MEDS ORDERED: METOPROLOL TARTRATE 1 MG/ML VIAL IV STA (09:56)
[2023-03-18] MEDS: LACTATED RINGER'S 1,000 ML IV SCH ×2 (10:04→17:28)
[2023-03-18] MEDS ORDERED: DAPTOMYCIN 350 MG IV SCH (14:30)
[2023-03-18] MEDS: DAPTOmycin 450 MG in SYRINGE 0 ML IV SCH (15:01)
[2023-03-18] MEDS: CEFEPIME 1,000 MG in SYRINGE 0 ML IV SCH (15:01)
[2023-03-18] MEDS: ATORVASTATIN 10 MG TAB PO SCH (21:01)
--- NOTE | 2023-03-18 22:07 | Orthopedic Progress Note ---
Date of Service March 18, 2023 Assessment & Plan (1) Acute osteomyelitis of right calcaneus: Plan: Patient seen and evaluated in W452-1. Patient status post day #2 bilateral heel wound debridement with calcaneal partial excision (DOS:03/16/23). Awaiting intra operative wound cultures showing no growth to date. Pathology report pending. We discussed possible use of wound vac. All questions answered. No further intra operative care planned. Thank you for allowing me to participate in the care of this Patient. (2) Acute osteomyelitis of left calcaneus: (3) Chronic kidney disease-mineral and bone disorder: Admission and Anticipated Discharge Date Admission Date: March 15, 2023 Subjective Patient seen and evaluated in room W452-1. Patient status post day #2 bilateral heel wound debridement with calcaneal partial excision (DOS:03/16/23). Physical Exam Constitutional: + ill appearing, + frail appearing, coop erative and comfortable Eyes: normal visual farfan by confrontation Neck: normal visual inspection Respiratory: normal respiratory effort Cardiovascular: Rate/Rhythm: + irregularly irregular Vessels: posterior tibial pulses present and dorsalis pedis pulses present Musculoskeletal: Extremities: + limited ROM of extremities Skin: + ulcer (Bilateral necrotic heels with e xposed calcaneus) Psychiatric: Orientation: alert and oriented x 3 Results & Data Vital Signs (Past 12 Hours) Vital Signs Temp Pulse Pulse Pulse Resp BP BP 03/18/23 19:48 36.7 C 123 H 20 110/50 L 03/18/23 15:45 03/18/23 15:16 36.5 C 82 18 03/18/23 14:56 36.3 C L 110 H 03/18/23 14:01 117 H 03/18/23 14:00 112 H 78/33 L 03/18/23 13:30 112 H 90/53 L 03/18/23 13:15 118 H 97/68 L 03/18/23 13:00 117 H 70/41 L 03/18/23 12:45 118 H 70/27 L 03/18/23 12:30 104 H 77/26 L 03/18/23 12:15 113 H 79/45 L 03/18/23 12:00 101 H 61/36 L 03/18/23 11:45 96 H 71/43 L 03/18/23 11:30 100 H 56/30 L 03/18/23 11:15 104 H 68/32 L 03/18/23 11:00 104 H 77/51 L 03/18/23 10:58 66 80/47 L 03/18/23 10:49 36.4 C L 71 03/18/23 10:15 115 H BP Pulse Ox O2 Del Method 03/18/23 19:48 96 Room Air 03/18/23 15:45 82/42 L 03/18/23 15:16 91 Room Air 03/18/23 14:56 97/72 L 03/18/23 14:01 03/18/23 14:00 03/18/23 13:30 03/18/23 13:15 03/18/23 13:00 03/18/23 12:45 03/18/23 12:30 03/18/23 12:15 03/18/23 12:00 03/18/23 11:45 03/18/23 11:30 03/18/23 11:15 03/18/23 11:00 03/18/23 10:58 03/18/23 10:49 03/18/23 10:15
--- NOTE | 2023-03-18 22:21 | Hospitalist Progress Note ---
Date of Service March 18, 2023 Assessment & Plan (1) Acute osteomyelitis of left calcaneus: Plan: Pressure ulcler of bilateral heels, Stage 4 POA Ankle MRI per podiatry recommendations Continue daptomycin and cefepime S/ P Debridement of bilateral heels. Patient however has been bleeding. Dressing applied. Paitne now with tachycardia likely secondary to volume loss from bleeding wounds in his bilateral feet. Ordered 2 liters of IVF, though will need to monitor respiratory status given he is a dialysis patient. Patient though does make small amounts of urine. (2) Acute osteomyelitis of right calcaneus: Plan: As above (3) PAD (peripheral artery disease): Plan: Continue clopidogrel, atorvastatin, apixaban on hold for surgery (4) Hematoma of right lower leg: Plan: Previous I&D, imprving per his daughter (5) End stage renal disease: Plan: Next due dialysis on Friday. Consult nephrology on Friday if patient is expected to stay in hospital for this. (6) Atrial fibrillation, permanent: Plan: Rate controlled without AV neal blocking agents Holding Eliquis for surgery Ordered one dose of metopprolol as HR was in the 150s earlier in the AM of 03/18. Improved after fluid, to the 110-120s. This is likely secondfary to volume loss given problem 1. will monitor hemoglobin and transfuse if necessary. Plan VTE prophylaxis - restart apixaban when okay by podiatry Diet - dialysis renal, n.p.o. after midnight Disposition - admit to PCU given significantly hypertensive on admission Admission and Anticipated Discharge Date Admission Date: March 15, 2023 Subjective Patient appears confused today. HIs daughter is at bedside and is concerned. Review of Systems Review of Systems: All systems reviewed & are unremarkable except as noted in HPI & below Physical Exam Constitutional: WD/WN, vitals as above Eyes: + anicteric sclerae; normal pupil size ENMT: external ear and nose normal, oropharynx normal Neck: trachea midline, no thyromegaly Respiratory: normal respiratory effort; no respiratory distress Auscultation: + diminished lung sounds (throughout); no crackles and no wheezes Cardiovascular: Rate/Rhythm: + tachycardic and + irregularly irregular Heart Sounds: no murmur Extremities: normal capillary refill and + pedal edema (trace/ left arm has edema); no calf tenderness Gastrointestinal (Abdomen): normal bowel sounds, soft, nontender, no hepatosplenomegaly Musculoskeletal: no cyanosis or clubbing, extremities motor strength 5/5 Neurologic: moves all extremities and awake; not confused Psychiatric: A+Ox3, euthymic affect Results & Data Results & Data Vital Signs (Past 12 Hours) Vital Signs Temp Pulse Pulse Pulse Resp BP BP 03/18/23 19:48 36.7 C 123 H 20 110/50 L 03/18/23 15:45 03/18/23 15:16 36.5 C 82 18 03/18/23 14:56 36.3 C L 110 H 03/18/23 14:01 117 H 03/18/23 14:00 112 H 78/33 L 03/18/23 13:30 112 H 90/53 L 03/18/23 13:15 118 H 97/68 L 03/18/23 13:00 117 H 70/41 L 03/18/23 12:45 118 H 70/27 L 03/18/23 12:30 104 H 77/26 L 03/18/23 12:15 113 H 79/45 L 03/18/23 12:00 101 H 61/36 L 03/18/23 11:45 96 H 71/43 L 03/18/23 11:30 100 H 56/30 L 03/18/23 11:15 104 H 68/32 L 03/18/23 11:00 104 H 77/51 L 03/18/23 10:58 66 80/47 L 03/18/23 10:49 36.4 C L 71 BP Pulse Ox O2 Del Method 03/18/23 19:48 96 Room Air 03/18/23 15:45 82/42 L 03/18/23 15:16 91 Room Air 03/18/23 14:56 97/72 L 03/18/23 14:01 03/18/23 14:00 03/18/23 13:30 03/18/23 13:15 03/18/23 13:00 03/18/23 12:45 03/18/23 12:30 03/18/23 12:15 03/18/23 12:00 03/18/23 11:45 03/18/23 11:30 03/18/23 11:15 03/18/23 11:00 03/18/23 10:58 03/18/23 10:49 PG Care Time/CCT Total # of Minutes Spent Total Time Spent with Patient: Total time spent is greater than 50% in coordination of care (as documented) at patient's floor/unit and/or counseling patient: Coding Level of Care Code 73697 SUB INP/OBS CARE 2/35MIN Diagnoses Acute osteomyelitis of left calcaneus M86.172 Acute osteomyelitis of right calcaneus M86.171 PAD (peripheral artery disease) I73.9 Hematoma of right lower leg S80.11XA End stage renal disease N18.6 Atrial fibrillation, permanent I48.21
[2023-03-19 06:26] LABS: Hematocrit (blood only) 23.5 % (42.0-52.0); Hemoglobin 7.2 g/dl (14.0-18.0); Mean Corpuscular Hemoglobin 30.5 pg (25.0-34.0); Mean Corpuscular Hgb Conc 30.6 g/dL (32.0-36.0); Mean Corpuscular Volume 99.6 fL (80.0-100.0); Mean Platelet Volume 10.6 fL (9.4-12.4); Nucleated RBC # (auto) 0.07 K/uL (0.00-0.12); Nucleated RBC % (auto) 0.6 %; Platelet Count 207 K/uL (130-400); RDW Coefficient of Variation 15.4 % (11.5-14.5); RDW Standard Deviation 55.4 fL (36.4-46.3); Red Blood Count 2.36 M/uL (4.70-6.10); White Blood Count 11.81 K/ul (4.8-10.8)
[2023-03-19 06:52] LABS: BUN Creatinine Ratio 6.8 (10-20); Calcium 8.5 mg/dl (8.6-10.3); Creatinine Clr Calc Pharmacy 16.3 ml/min; Est GFR (African American) 13.3 ml/min; Est GFR (Non-African American) 11.5 ml/min; Potassium 4.4 mmol/L (3.5-5.1)
[2023-03-19] MEDS: LIDOCAINE/PRILOCAINE 2.5% EA CRM EXT SCH (07:32)
[2023-03-19] MEDS: MIDODRINE HCL 2.5 MG TAB PO SCH ×3 (08:53→17:24)
[2023-03-19] MEDS: FLUDROCORTISONE ACETATE 0.1 MG TAB PO SCH (08:53)
[2023-03-19] MEDS: NEPHROCAPS PO SCH (08:53)
[2023-03-19] MEDS: FOLIC ACID 1 MG TAB PO SCH ×2 (08:53→21:09)
[2023-03-19] MEDS: ADVANCED PROBIOTIC 1250 MG CAPSULE PO SCH (08:54)
[2023-03-19] MEDS: SEVELAMER HCL 800 MG TABLET PO SCH ×3 (08:54→17:24)
[2023-03-19] MEDS: CLOPIDOGREL BISULFATE 75 MG TAB PO SCH (08:54)
[2023-03-19] MEDS: traMADol HCL 50 MG TABLET PO PRN (09:11)
--- NOTE | 2023-03-19 11:12 | Nephrology Progress Note ---
Date of Service March 19, 2023 Assessment & Plan (1) End stage renal disease: Plan: * Outaptient HD Rx: [facility] - TTS, 3.5hr, F-180NR, Qb450/Qd500, 3K Ca2.5 Na 137, EDW 97 kg, LUE AVF * Electrolyte balance is acceptable. No acute indication for HD today. Will schedule next dialysis for am (2) Acute osteomyelitis of right calcaneus: Plan: * s/p surgical debridement of bilateral heel wounds 03/16/23 * Remains on IV Cefepime, Daptomycin * L heel dressing saturated w/ blood yesterday. Hgb dropped 8.8 to 7.2 last 24 hours. Recommend 1 unit PRBC * Podiatry considering wound vac (3) Orthostatic hypotension: Plan: * Continue Midodrine 5 mg po TID (4) CVA (cerebral vascular accident): (5) Type 2 diabetes mellitus with complications: Admission and Anticipated Discharge Date Admission Date: March 15, 2023 Subjective Mr. Blue was evaluated in his hospital room this morning. He has a h/o CVA and dysarthria, but he remains oriented to self and place. He voiced no medical concerns. Review of Systems Constitutional: no fever Eyes: no problem reported Ear, Nose, Mouth, Throat: no problem reported Respiratory: no cough and no dyspnea Cardiovascular: no chest pain Gastrointestinal: no abdominal pain, no nausea and no diarrhea/loose stools Physical Exam Constitutional: + ill appearing; no acute distress Eyes: PERRL, conjunctivae normal, anicteric sclerae ENMT: external ear and nose normal, oropharynx normal Neck: trachea midline, no thyromegaly Respiratory: normal respiratory effort, lungs clear to auscultation Cardiovascular: RRR, no murmur, no edema Extremities: + AV fistula (LUE AVF + bruit) Gastrointestinal (Abdomen): normal bowel sounds, soft, nontender, no hepatosplenomegaly Skin: no rashes, warm and dry Neurologic: Speech / Cognition: + abnormal speech; normal cognition Psychiatric: Affect: euthymic affect Results & Data Vital Signs (Past 12 Hours) Vital Signs Temp Pulse Resp BP Pulse Ox O2 Del Method 03/19/23 10:48 36.9 C 77 17 100/58 L 94 Room Air 03/19/23 07:00 36.6 C 103 H 16 125/68 94 Room Air 03/19/23 05:14 36.4 C L 86 18 111/65 92 Room Air Laboratory Results Laboratory Results - last 24 hr 03/19/23 05:27 WBC 11.81 H RBC 2.36 L Hgb 7.2 L Hct 23.5 L MCV 99.6 MCH 30.5 MCHC 30.6 L RDW Std Deviation 55.4 H RDW Coeff of Mukul 15.4 H Plt Count 207 MPV 10.6 Absolute Nucleated RBC 0.07 Nucleated RBC % (auto) 0.6 Sodium 137 Potassium 4.4 Chloride 102 Carbon Dioxide 27 Anion Gap 8 BUN 32 H D Creatinine 4.71 H* D Est Cr Clr Drug Dosing 16.3 Est GFR ( Amer) 13.3 Est GFR (Non-Af Amer) 11.5 BUN/Creatinine Ratio 6.8 L Glucose 138 H Calcium 8.5 L PG Care Time/CCT Total # of Minutes Spent Total Time Spent with Patient: Total time spent is greater than 50% in coordination of care (as documented) at patient's floor/unit and/or counseling patient: Coding Level of Care Code 90627 SUB INP/OBS CARE 3/50MIN Diagnoses End stage renal disease N18.6 Acute osteomyelitis of right calcaneus M86.171 Orthostatic hypotension I95.1 CVA (cerebral vascular accident) I63.9 Type 2 diabetes mellitus with complications E11.8
[2023-03-19] MEDS: CEFEPIME 1,000 MG in SYRINGE 0 ML IV SCH (15:17)
[2023-03-19] MEDS: ACETAMINOPHEN 325 MG TAB PO SCH ×2 (17:25→21:09)
[2023-03-19] MEDS: ATORVASTATIN 10 MG TAB PO SCH (21:09)
--- NOTE | 2023-03-19 22:01 | Hospitalist Progress Note ---
Date of Service March 19, 2023 Assessment & Plan (1) Acute osteomyelitis of left calcaneus: Plan: Pressure ulcler of bilateral heels, Stage 4 POA Ankle MRI per podiatry recommendations Continue daptomycin and cefepime S/ P Debridement of bilateral heels. Patient however has been bleeding. Dressing applied. ON 03/18 Patient with tachycardia likely secondary to volume loss from bleeding wounds in his bilateral feet. Ordered 2 liters of IVF, though will need to monitor respiratory status given he is a dialysis patient. Patient though does make small amounts of urine. On 03/19 HR improved. likely secondary to bleeding. BP has also improved. Patient remains on room air. Concerned over hospital acquired delirium, may be due to tramadol, however patient is in pain. will continue for now. (2) Acute osteomyelitis of right calcaneus: Plan: As above (3) PAD (peripheral artery disease): Plan: Continue clopidogrel, atorvastatin, apixaban on hold for surgery (4) Hematoma of right lower leg: Plan: Previous I&D, imprving per his daughter (5) End stage renal disease: Plan: Next due dialysis on Friday. Consult nephrology on Friday if patient is expected to stay in hospital for this. (6) Atrial fibrillation, permanent: Plan: Rate controlled without AV neal blocking agents Holding Eliquis for surgery Ordered one dose of metopprolol as HR was in the 150s earlier in the AM of 03/18. Improved after fluid This is likely secondfary to volume loss given problem 1. will monitor hemoglobin and transfuse if necessary. Plan VTE prophylaxis - restart apixaban when okay by podiatry Diet - dialysis renal, n.p.o. after midnight Disposition - admit to PCU given significantly hypertensive on admission Admission and Anticipated Discharge Date Admission Date: March 15, 2023 Subjective Paatient reports that his pain is better controlled. Review of Systems Review of Systems: All systems reviewed & are unremarkable except as noted in HPI & below Physical Exam Constitutional: WD/WN, vitals as above Eyes: + anicteric sclerae; normal pupil size ENMT: external ear and nose normal, oropharynx normal Neck: trachea midline, no thyromegaly Respiratory: normal respiratory effort; no respiratory distress Auscultation: + diminished lung sounds (throughout); no crackles and no wheezes Cardiovascular: Rate/Rhythm: regular rate, + tachycardic and + irregularly irregular Heart Sounds: no murmur Extremities: normal capillary refill and + pedal edema (trace/ left arm has edema); no calf tenderness Gastrointestinal (Abdomen): normal bowel sounds, soft, nontender, no hepatosplenomegaly Musculoskeletal: no cyanosis or clubbing, extremities motor strength 5/5 Neurologic: moves all extremities and awake; not confused Psychiatric: A+Ox3, euthymic affect Results & Data Results & Data Vital Signs (Past 12 Hours) Vital Signs Temp Pulse Pulse Resp BP BP Pulse Ox 03/19/23 20:50 37.0 C 53 L 18 129/67 99 03/19/23 14:59 36.6 C 98 H 20 119/73 93 03/19/23 10:48 36.9 C 77 17 100/58 L 94 O2 Del Method 03/19/23 20:50 Room Air 03/19/23 14:59 Room Air 03/19/23 10:48 Room Air PG Care Time/CCT Total # of Minutes Spent Total Time Spent with Patient: Total time spent is greater than 50% in coordination of care (as documented) at patient's floor/unit and/or counseling patient: Coding Level of Care Code 73157 SUB INP/OBS CARE 2/35MIN Diagnoses Acute osteomyelitis of left calcaneus M86.172 Acute osteomyelitis of right calcaneus M86.171 PAD (peripheral artery disease) I73.9 Hematoma of right lower leg S80.11XA End stage renal disease N18.6 Atrial fibrillation, permanent I48.21
[2023-03-20 06:35] LABS: Hemoglobin 6.6 g/dl (14.0-18.0); Mean Corpuscular Hemoglobin 31.1 pg (25.0-34.0); Mean Corpuscular Hgb Conc 31.4 g/dL (32.0-36.0); Mean Corpuscular Volume 99.1 fL (80.0-100.0); Mean Platelet Volume 10.4 fL (9.4-12.4); Nucleated RBC # (auto) 0.26 K/uL (0.00-0.12); Nucleated RBC % (auto) 2.5 %; Platelet Count 239 K/uL (130-400); RDW Coefficient of Variation 15.3 % (11.5-14.5); RDW Standard Deviation 54.7 fL (36.4-46.3); Red Blood Count 2.12 M/uL (4.70-6.10); White Blood Count 10.31 K/ul (4.8-10.8)
[2023-03-20 06:43] LABS: Unsaturated Iron Binding Cap < 55 mcg/dl (155-355)
[2023-03-20 06:45] LABS: Anion Gap 8 (3-11); BUN Creatinine Ratio 7.9 (10-20); Blood Urea Nitrogen 48 mg/dl (6-23); Calcium 8.4 mg/dl (8.6-10.3); Carbon Dioxide 27 mmol/L (21-32); Chloride 102 mmol/L (98-107); Creatinine Clr Calc Pharmacy 12.5 ml/min; Est GFR (African American) 9.7 ml/min; Est GFR (Non-African American) 8.4 ml/min; Glucose 124 mg/dl (70-99(Fasting)); Iron 87 mcg/dl (35-175); Potassium 4.1 mmol/L (3.5-5.1); Sodium 137 mmol/L (136-145)
[2023-03-20 06:54] LABS: Ferritin 1073.1 ng/ml (8-388)
[2023-03-20] MEDS ORDERED: SODIUM CHLORIDE 0.9% 1,000 ML IV PRN (07:00)
[2023-03-20] MEDS ORDERED: SODIUM CHLORIDE 0.9% 250 ML IV PRN (08:12)
--- NOTE | 2023-03-20 08:22 | Hospitalist Progress Note ---
Date of Service March 20, 2023 Assessment & Plan (1) Acute osteomyelitis of left calcaneus: Plan: Pressure ulcer of bilateral heels, Stage 4 POA osteomyelitis, acute on chronic s/p osteotomy b/l heels Ankle MRI per podiatry recommendations Continue daptomycin and cefepime S/ P Debridement of bilateral heels 03/16/23. Patient however has been bleeding. Dressing applied. Patient remains on room air. Concerned over hospital acquired delirium, may be due to tramadol, however patient is in pain. (2) PAD (peripheral artery disease): Plan: Continue clopidogrel, atorvastatin, apixaban on hold for surgery (3) Hematoma of right lower leg: Plan: Previous I&D, improving per his daughter (4) End stage renal disease: Plan: T,TR,Sat Consult nephrology on Friday if patient is expected to stay in hospital for this. (5) Atrial fibrillation, permanent: Plan: Rate controlled without AV neal blocking agents Holding Eliquis for surgery and anemia (6) Anemia: Plan: Anemia both of chronic disease and blood loss requiring transfusion 2 units packed red blood cells on 03/20/2023 Iron level checked on 03/20 is replete Plan VTE prophylaxis - restart apixaban when okay by podiatry, and anemia controlled Diet - dialysis renal, Admission and Anticipated Discharge Date Admission Date: March 15, 2023 Subjective Patient's anemia is worse and likely combination of acute blood loss anemia and anemia of chronic disease. He is consented for a transfusion by his daughter Additionally patient for dialysis on 03/20/2022 Physical Exam Physical Exam: Patient is awake he is oriented to place not time he request to have his daughter consent for blood Bleeding of his operative sites are controlled dressings are dry and intact Card exam is regular Lungs are clear with diminished at the bases abdomen NABS soft and nontender Results & Data Results & Data Vital Signs (Past 12 Hours) Vital Signs Temp Pulse Pulse Pulse Resp BP Pulse Ox 03/20/23 04:08 97.9 F 87 18 131/50 L 94 03/20/23 00:00 97.5 F L 97 H 18 111/56 L 93 03/19/23 23:29 93 H 03/19/23 21:30 03/19/23 20:50 98.6 F 53 L 18 129/67 99 O2 Del Method 03/20/23 04:08 Room Air 03/20/23 00:00 Room Air 03/19/23 23:29 03/19/23 21:30 Room Air 03/19/23 20:50 Room Air Laboratory Results Reviewed CBC reviewed chemistry Telephone consent for daughter Lynne for blood transfusion x 2 units PG Care Time/CCT Total # of Minutes Spent Total Time Spent with Patient: Total time spent is greater than 50% in coordination of care (as documented) at patient's floor/unit and/or counseling patient: Coding Level of Care Code 20496 SUB INP/OBS CARE 3/50MIN Diagnoses Acute osteomyelitis of left calcaneus M86.172 PAD (peripheral artery disease) I73.9 Hematoma of right lower leg S80.11XA End stage renal disease N18.6 Atrial fibrillation, permanent I48.21 Anemia D64.9
--- NOTE | 2023-03-20 08:32 | Nephrology Progress Note ---
Date of Service March 20, 2023 Assessment & Plan (1) End stage renal disease: Plan: * Outaptient HD Rx: [facility] - TTS, 3.5hr, F-180NR, Qb450/Qd500, 3K Ca2.5 Na 137, EDW 97 kg, LUE AVF * Hgb has dropped to 6.6 this am. Primary service has ordered T&C and transfusion. Will delay HD until this afternoon in order to provide transfusion at the beginning of treatment. HD RN has been notified and HD orders placed in EMR (2) Acute osteomyelitis of right calcaneus: Plan: * s/p surgical debridement of bilateral heel wounds 03/16/23 * Remains on IV Cefepime, Daptomycin * Podiatry considering wound vac (3) Orthostatic hypotension: Plan: * Continue Midodrine 5 mg po TID (4) CVA (cerebral vascular accident): (5) Type 2 diabetes mellitus with complications: Admission and Anticipated Discharge Date Admission Date: March 15, 2023 Subjective Mr. Blue was evaluated in his hospital room this morning. He has a h/o CVA and dysarthria, but he remains oriented to self and place. He voiced no medical concerns. Review of Systems Constitutional: no fever Eyes: no problem reported Ear, Nose, Mouth, Throat: no problem reported Respiratory: no cough and no dyspnea Cardiovascular: no chest pain Gastrointestinal: no abdominal pain, no nausea and no diarrhea/loose stools Physical Exam Constitutional: + ill appearing; no acute distress Eyes: PERRL, conjunctivae normal, anicteric sclerae ENMT: external ear and nose normal, oropharynx normal Neck: trachea midline, no thyromegaly Respiratory: normal respiratory effort, lungs clear to auscultation Cardiovascular: RRR, no murmur, no edema Extremities: + AV fistula (LUE AVF + bruit) Gastrointestinal (Abdomen): normal bowel sounds, soft, nontender, no hepatosplenomegaly Skin: no rashes, warm and dry Neurologic: Speech / Cognition: + abnormal speech; normal cognition Psychiatric: Affect: euthymic affect Results & Data Vital Signs (Past 12 Hours) Vital Signs Temp Pulse Pulse Pulse Resp BP Pulse Ox 03/20/23 04:08 36.6 C 87 18 131/50 L 94 03/20/23 00:00 36.4 C L 97 H 18 111/56 L 93 12/20/23 23:29 93 H 03/19/23 21:30 03/19/23 20:50 37.0 C 53 L 18 129/67 99 O2 Del Method 03/20/23 04:08 Room Air 03/20/23 00:00 Room Air 03/19/23 23:29 03/19/23 21:30 Room Air 03/19/23 20:50 Room Air Laboratory Results Laboratory Results - last 24 hr 03/20/23 05:38 WBC 10.31 RBC 2.12 L Hgb 6.6 L* Hct 21.0 L MCV 99.1 MCH 31.1 MCHC 31.4 L RDW Std Deviation 54.7 H RDW Coeff of Mukul 15.3 H Plt Count 239 MPV 10.4 Absolute Nucleated RBC 0.26 H Nucleated RBC % (auto) 2.5 Sodium 137 Potassium 4.1 Chloride 102 Carbon Dioxide 27 Anion Gap 8 BUN 48 H Creatinine 6.11 H* D Est Cr Clr Drug Dosing 12.5 Est GFR ( Amer) 9.7 Est GFR (Non-Af Amer) 8.4 BUN/Creatinine Ratio 7.9 L Glucose 124 H Calcium 8.4 L Iron 87 TIBC TNP Unsaturated IBC < 55 L Transferrin % Sat TNP Ferritin 1073.1 H PG Care Time/CCT Total # of Minutes Spent Total Time Spent with Patient: Total time spent is greater than 50% in coordination of care (as documented) at patient's floor/unit and/or counseling patient: Coding Level of Care Code 78943 SUB INP/OBS CARE 3/50MIN Diagnoses End stage renal disease N18.6 Acute osteomyelitis of right calcaneus M86.171 Orthostatic hypotension I95.1 CVA (cerebral vascular accident) I63.9 Type 2 diabetes mellitus with complications E11.8
[2023-03-20] MEDS: FLUDROCORTISONE ACETATE 0.1 MG TAB PO SCH (09:33)
[2023-03-20] MEDS: CLOPIDOGREL BISULFATE 75 MG TAB PO SCH (09:33)
[2023-03-20] MEDS: FOLIC ACID 1 MG TAB PO SCH ×2 (09:34→21:49)
[2023-03-20] MEDS: ADVANCED PROBIOTIC 1250 MG CAPSULE PO SCH (09:34)
[2023-03-20] MEDS: MIDODRINE HCL 2.5 MG TAB PO SCH ×3 (09:34→17:19)
[2023-03-20] MEDS: SEVELAMER HCL 800 MG TABLET PO SCH ×3 (09:34→17:19)
[2023-03-20] MEDS: NEPHROCAPS PO SCH (09:34)
[2023-03-20] MEDS: ACETAMINOPHEN 325 MG TAB PO SCH ×4 (09:35→21:48)
[2023-03-20] MEDS: CEFEPIME 1,000 MG in SYRINGE 0 ML IV SCH (17:15)
[2023-03-20] MEDS: DAPTOmycin 450 MG in SYRINGE 0 ML IV SCH (17:15)
--- NOTE | 2023-03-20 21:31 | Orthopedic Progress Note ---
Date of Service March 20, 2023 Assessment & Plan (1) Acute osteomyelitis of right calcaneus: Plan: Patient seen and evaluated in W452-1. Patient status post day #4 bilateral heel wound debridement with calcaneal partial excision (DOS:03/16/23). Awaiting intra operative wound cultures showing no growth to date. Pathology report reviewed B/L +OM. Clear margins obtained. Dressing changed with out incident. No further intra operative care planned. Continue off loading to heels. Thank you for allowing me to participate in the care of this Patient. (2) Acute osteomyelitis of left calcaneus: (3) Chronic kidney disease-mineral and bone disorder: Admission and Anticipated Discharge Date Admission Date: March 15, 2023 Subjective Patient is seen at bedside with daughter in room 452-1. Patient status post day #4 bilateral heel wound debridement with calcaneal partial excision (DOS:03/16/23). He has no complaints. Physical Exam Constitutional: + ill appearing, + frail appearing, coop erative and comfortable Eyes: normal visual farfan by confrontation Neck: normal visual inspection Respiratory: normal respiratory effort Cardiovascular: Rate/Rhythm: + irregularly irregular Vessels: posterior tibial pulses present and dorsalis pedis pulses present Musculoskeletal: Extremities: + limited ROM of extremities Skin: + ulcer (Bilateral necrotic heels with e xposed calcaneus) Psychiatric: Orientation: alert and oriented x 3 Results & Data Vital Signs (Past 12 Hours) Vital Signs Temp Pulse Pulse Resp BP BP Pulse Ox 03/20/23 20:39 36.9 C 101 H 17 93 03/20/23 17:05 36.5 C 105 H 135/70 03/20/23 16:30 90 117/87 03/20/23 16:00 111 H 159/69 H 03/20/23 15:30 95 H 175/65 H 03/20/23 15:00 88 171/58 H 03/20/23 14:47 36.6 C 92 H 20 150/62 H 95 03/20/23 14:30 94 H 138/51 L 03/20/23 14:17 36.7 C 88 22 135/48 L 95 03/20/23 14:15 87 136/52 L 03/20/23 14:05 89 03/20/23 14:02 36.6 C 87 20 136/52 L 96 03/20/23 14:00 36.6 C 97 H 128/50 L 03/20/23 13:45 91 H 143/54 H 03/20/23 13:43 37.1 C 91 H 20 143/54 H 96 03/20/23 13:30 95 H 166/54 H 03/20/23 13:21 37.1 C 86 150/62 H 03/20/23 13:19 37.0 C 60 19 151/73 H 94 03/20/23 13:10 37.1 C 84 03/20/23 12:23 37.1 C 93 H 18 135/42 L 93 03/20/23 11:23 37.2 C 102 H 18 150/79 H 93 03/20/23 10:53 37.1 C 99 H 18 139/73 99 03/20/23 10:38 36.9 C 111 H 18 132/44 L 94 03/20/23 10:23 36.7 C 94 H 18 126/73 92 O2 Del Method 03/20/23 20:39 Room Air 03/20/23 17:05 03/20/23 16:30 03/20/23 16:00 03/20/23 15:30 03/20/23 15:00 03/20/23 14:47 03/20/23 14:30 03/20/23 14:17 03/20/23 14:15 03/20/23 14:05 03/20/23 14:02 03/20/23 14:00 03/20/23 13:45 03/20/23 13:43 03/20/23 13:30 03/20/23 13:21 03/20/23 13:19 03/20/23 13:10 03/20/23 12:23 03/20/23 11:23 03/20/23 10:53 03/20/23 10:38 03/20/23 10:23 Diagnostic Findings [address], [place] [address] Sylvester Ramey M.D. [employer] Pathology Report Name: JENIFFER JUNIOR Age/Sex: 72/M Location: MR#: [id number] : 1950 Rm/Bed: [facility] Subm. Phys.: Sorin Marti DPM, MS Case #: [id number] Collected: 03/16/23 Received: 03/18/23 Copies To Rickey Moran MD Hunter, John R., DPM, MS FINAL DIAGNOSIS A. Bone and synovial tissue, right foot, "right foot calcaneus tissue" (heel wound debridement): - Focal osteonecrosis lacking an inflammatory infiltrate is seen. - The synovial tissue reveals mild chronic synovitis. - The clinical diagnoses of bilateral foot osteomyelitis is noted. B. Bone and soft tissue, "left foot calcaneus tissue" (heel wound debridement): - Focal changes consistent with osteomyelitis are seen. - The attached synovial tissue reveals moderate chronic active synovitis. at 0571. Clinical History Bilateral foot osteomyelitis. Procedure performed: Bilateral heel wound debridement. Gross Description A. RIGHT FOOT CALCANEUS TISSUE The specimen is received in a container labeled right foot calcaneus with the patient name. The specimen consists of a somewhat irregular fragment of bone with a small amount of attached soft tissue. The fragment measures 3.5 x 2.8 x 1.5 cm. One surface is convex and markedly irregular. A small amount of dull desai and grayish soft tissue is attached to the surface. Sectioning through the fragment reveals a dull desai to grayish cut surface with focal softening. Mail Processor sections are submitted in two cassettes with A1 representing bone for decalcification and A2, soft tissue. B. LEFT FOOT CALCANEUS TISSUE The specimen is received in a container labeled left foot calcaneus with the patient name. The specimen consists of a roughly circular fragment of bone with attached soft tissue which measures 2.8 x 2.6 x 1.2 cm. One surface is convex and somewhat irregular with a small amount of attached dull bhandari soft tissue. On sectioning the cut surface of the bone has a slight dull bhandari discoloration and is somewhat softened. Mail Processor sections are submitted in two cassettes with B1 representing bone for decalcification and B2, soft tissue. SH Current Procedural Terminology Surgical Pathology Report Page 1 of 2 [facility] Surgical Pathology Report Name: JENIFFER JUNIOR : 1950 Case #: [id number] Continued A:[id number] Surgical Pathology Report
[2023-03-20] MEDS: LIDOCAINE/PRILOCAINE 2.5% EA CRM EXT SCH (21:49)
[2023-03-20] MEDS: ATORVASTATIN 10 MG TAB PO SCH (21:49)
--- NOTE | 2023-03-21 06:09 | Electrocardiogram Report ---
Test Reason : Blood Pressure : / mmHG Vent. Rate : 156 BPM Atrial Rate : 170 BPM P-R Int : 000 ms QRS Dur : 088 ms QT Int : 246 ms P-R-T Axes : 000 053 222 degrees QTc Int : 396 ms Poor data quality, interpretation may be adversely affected Atrial fibrillation with rapid ventricular response Cannot rule out Anterior infarct , age undetermined Abnormal ECG When compared with ECG of 15-MAR-2023 11:18, Vent. rate has increased BY 62 BPM Minimal criteria for Anterior infarct are now Present ST now depressed in Lateral leads Confirmed by Manny Amato ([id number]) on 03/21/2023 6:09:24 AM Referred By: Sorin Marti Confirmed By:Manny Amato
[2023-03-21 06:18] LABS: Hematocrit (blood only) 26.2 % (42.0-52.0); Hemoglobin 8.5 g/dl (14.0-18.0); Mean Corpuscular Hemoglobin 30.8 pg (25.0-34.0); Mean Corpuscular Hgb Conc 32.4 g/dL (32.0-36.0); Mean Corpuscular Volume 94.9 fL (80.0-100.0); Mean Platelet Volume 10.2 fL (9.4-12.4); Nucleated RBC # (auto) 0.12 K/uL (0.00-0.12); Nucleated RBC % (auto) 1.4 %; Platelet Count 206 K/uL (130-400); RDW Coefficient of Variation 17.7 % (11.5-14.5); RDW Standard Deviation 59.2 fL (36.4-46.3); Red Blood Count 2.76 M/uL (4.70-6.10); White Blood Count 8.35 K/ul (4.8-10.8)
--- NOTE | 2023-03-21 06:28 | Electrocardiogram Report ---
Test Reason : Blood Pressure : / mmHG Vent. Rate : 126 BPM Atrial Rate : 138 BPM P-R Int : 000 ms QRS Dur : 084 ms QT Int : 264 ms P-R-T Axes : 000 040 231 degrees QTc Int : 382 ms Poor data quality, interpretation may be adversely affected Atrial fibrillation with rapid ventricular response Nonspecific ST and T wave abnormality Abnormal ECG When compared with ECG of 18-MAR-2023 09:44, No significant change Confirmed by Manny Amato ([id number]) on 03/21/2023 6:27:56 AM Referred By: Sorin Marti Confirmed By:Manny Amato
[2023-03-21 06:33] LABS: BUN Creatinine Ratio 6.5 (10-20); Calcium 8.1 mg/dl (8.6-10.3); Creatinine Clr Calc Pharmacy 19.3 ml/min; Est GFR (African American) 16.4 ml/min; Est GFR (Non-African American) 14.1 ml/min; Potassium 3.7 mmol/L (3.5-5.1)
[2023-03-21] MEDS: SEVELAMER HCL 800 MG TABLET PO SCH ×3 (08:13→17:19)
[2023-03-21] MEDS: FLUDROCORTISONE ACETATE 0.1 MG TAB PO SCH (08:13)
[2023-03-21] MEDS: MIDODRINE HCL 2.5 MG TAB PO SCH ×3 (08:13→17:19)
[2023-03-21] MEDS: ADVANCED PROBIOTIC 1250 MG CAPSULE PO SCH (08:14)
[2023-03-21] MEDS: CLOPIDOGREL BISULFATE 75 MG TAB PO SCH (08:14)
[2023-03-21] MEDS: FOLIC ACID 1 MG TAB PO SCH ×2 (08:14→19:56)
[2023-03-21] MEDS: NEPHROCAPS PO SCH (08:14)
[2023-03-21] MEDS: ACETAMINOPHEN 325 MG TAB PO SCH ×4 (08:14→19:55)
--- NOTE | 2023-03-21 08:45 | Nephrology Progress Note ---
Date of Service March 21, 2023 Assessment & Plan (1) End stage renal disease: Plan: * Outaptient HD Rx: [facility] - TTS, 3.5hr, F-180NR, Qb450/Qd500, 3K Ca2.5 Na 137, EDW 97 kg, LUE AVF * Volume status, electrolyte balance are acceptable at this time. Hgb has improved following 2 u PRBC 03/20/23 * Will schedule next HD for am (heparin free) (2) Acute osteomyelitis of right calcaneus: Plan: * s/p surgical debridement of bilateral heel wounds 03/16/23 * Remains on IV Cefepime, Daptomycin * Podiatry considering wound vac (3) Orthostatic hypotension: Plan: * Continue Midodrine 5 mg po TID (4) CVA (cerebral vascular accident): (5) Type 2 diabetes mellitus with complications: Admission and Anticipated Discharge Date Admission Date: March 15, 2023 Subjective Mr. Blue was evaluated in his hospital room this morning. He has a h/o CVA and dysarthria, but he remains oriented to self and place. He voiced no medical concerns. Review of Systems Constitutional: no fever Eyes: no problem reported Ear, Nose, Mouth, Throat: no problem reported Respiratory: no cough and no dyspnea Cardiovascular: no chest pain Gastrointestinal: no abdominal pain, no nausea and no diarrhea/loose stools Physical Exam Constitutional: + ill appearing; no acute distress Eyes: PERRL, conjunctivae normal, anicteric sclerae ENMT: external ear and nose normal, oropharynx normal Neck: trachea midline, no thyromegaly Respiratory: normal respiratory effort, lungs clear to auscultation Cardiovascular: RRR, no murmur, no edema Extremities: + AV fistula (LUE AVF + bruit) Gastrointestinal (Abdomen): normal bowel sounds, soft, nontender, no hepatosplenomegaly Skin: no rashes, warm and dry Neurologic: Speech / Cognition: + abnormal speech; normal cognition Psychiatric: Affect: euthymic affect Results & Data Vital Signs (Past 12 Hours) Vital Signs Temp Pulse Pulse Resp BP Pulse Ox O2 Del Method 03/21/23 07:37 36.8 C 91 H 21 145/80 H 90 Room Air 03/21/23 02:51 36.9 C 88 17 144/62 H 94 Room Air 03/20/23 23:50 36.9 C 94 H 18 160/77 H 96 Room Air 03/20/23 23:09 94 H Laboratory Results Laboratory Results - last 24 hr 03/20/23 03/20/23 03/21/23 05:38 08:25 05:23 WBC 8.35 RBC 2.76 L Hgb 8.5 L Hct 26.2 L MCV 94.9 MCH 30.8 MCHC 32.4 RDW Std Deviation 59.2 H RDW Coeff of Mukul 17.7 H Plt Count 206 MPV 10.2 Absolute Nucleated RBC 0.12 Nucleated RBC % (auto) 1.4 Sodium 138 Potassium 3.7 Chloride 105 Carbon Dioxide 28 Anion Gap 5 BUN 26 H D Creatinine 3.97 H D Est Cr Clr Drug Dosing 19.3 Est GFR ( Amer) 16.4 Est GFR (Non-Af Amer) 14.1 BUN/Creatinine Ratio 6.5 L Glucose 96 Calcium 8.1 L Blood Type A Positive Blood Type Recheck A Positive Antibody Screen NEGATIVE Crossmatch See Detail PG Care Time/CCT Total # of Minutes Spent Total Time Spent with Patient: Total time spent is greater than 50% in coordination of care (as documented) at patient's floor/unit and/or counseling patient: Coding Level of Care Code 58362 SUB INP/OBS CARE 3/50MIN Diagnoses End stage renal disease N18.6 Acute osteomyelitis of right calcaneus M86.171 Orthostatic hypotension I95.1 CVA (cerebral vascular accident) I63.9 Type 2 diabetes mellitus with complications E11.8
[2023-03-21] MEDS: CEFEPIME 1,000 MG in SYRINGE 0 ML IV SCH (14:07)
[2023-03-21] MEDS ORDERED: LOPERAMIDE HCL 2 MG CAP PO PRN (15:17)
--- NOTE | 2023-03-21 16:35 | Hospitalist Progress Note ---
Date of Service March 21, 2023 Assessment & Plan (1) Acute osteomyelitis of left calcaneus: Plan: Pressure ulcer of bilateral heels, Stage 4 POA osteomyelitis, acute on chronic s/p osteotomy b/l heels Ankle MRI per podiatry recommendations Continue daptomycin and cefepime, initial course was dated back to previous hospital stay was supposed to be on February 18 through April 01 however with this recurrence and resetting with surgery likely will be 6 weeks from Debridement of bilateral heels 03/16/23 through Thursday, April 27, 2023 Postoperative bleeding has been controlled acute blood loss anemia did occur patient did receive transfusions with 2 unit packed red blood cells Patient remains on room air. In hospital delirium has resolved (2) PAD (peripheral artery disease): Plan: Continue clopidogrel, atorvastatin, apixaban on hold for surgery (3) Hematoma of right lower leg: Plan: Previous I&D, improving per his daughter (4) End stage renal disease: Plan: T,TR,Sat Consult nephrology on Friday if patient is expected to stay in hospital for this. (5) Atrial fibrillation, permanent: Plan: Rate controlled without AV neal blocking agents Will resume Eliquis (6) Anemia: Plan: Anemia both of chronic disease and blood loss requiring transfusion 2 units packed red blood cells on 03/20/2023 Iron level checked on 03/20 is replete Plan VTE prophylaxis - restart apixaban when okay by podiatry, and anemia controlled Diet - dialysis renal, Admission and Anticipated Discharge Date Admission Date: March 15, 2023 Dissipate discharge March 22 after dialysis with continued outpatient antibiotics through April 27, 2019 Subjective Patient awake and oriented much more clear than the day before feels he is at his baseline to return to home Daughter is at the bedside and in agreement will take him after dialysis on 03/22/2023 Physical Exam Physical Exam: Patient is awake he is oriented person place and time much more clear than the day prior Bleeding of his operative sites are controlled dressings remain dry and intact Card exam is regular Lungs are clear with diminished at the bases abdomen NABS soft and nontender Results & Data Results & Data Vital Signs (Past 12 Hours) Vital Signs Temp Pulse Resp BP Pulse Ox O2 Del Method 03/21/23 10:48 97.2 F L 90 19 145/54 H 96 Room Air 03/21/23 07:37 98.2 F 91 H 21 145/80 H 90 Room Air Laboratory Results Reviewed CBC Reviewed chemistry PG Care Time/CCT Total # of Minutes Spent Total Time Spent with Patient: Total time spent is greater than 50% in coordination of care (as documented) at patient's floor/unit and/or counseling patient: Coding Level of Care Code 83945 SUB INP/OBS CARE 2/35MIN Diagnoses Acute osteomyelitis of left calcaneus M86.172 PAD (peripheral artery disease) I73.9 Hematoma of right lower leg S80.11XA End stage renal disease N18.6 Atrial fibrillation, permanent I48.21 Anemia D64.9
[2023-03-21] MEDS: ATORVASTATIN 10 MG TAB PO SCH (19:55)
[2023-03-22 06:37] LABS: Hemoglobin 9.4 g/dl (14.0-18.0); Mean Corpuscular Hemoglobin 30.1 pg (25.0-34.0); Mean Corpuscular Hgb Conc 32.4 g/dL (32.0-36.0); Mean Corpuscular Volume 92.9 fL (80.0-100.0); Nucleated RBC # (auto) 0.02 K/uL (0.00-0.12); Nucleated RBC % (auto) 0.3 %; Platelet Count 227 K/uL (130-400); RDW Coefficient of Variation 17.5 % (11.5-14.5); RDW Standard Deviation 56.6 fL (36.4-46.3); Red Blood Count 3.12 M/uL (4.70-6.10); White Blood Count 7.98 K/ul (4.8-10.8)
[2023-03-22] MEDS ORDERED: EPOETIN ALFA 10,000 UNITS/ML VIAL IV ONE (07:00)
[2023-03-22] MEDS ORDERED: SODIUM CHLORIDE 0.9% 1,000 ML IV PRN (07:00)
[2023-03-22 07:14] LABS: BUN Creatinine Ratio 6.9 (10-20); Calcium 8.4 mg/dl (8.6-10.3); Creatinine Clr Calc Pharmacy 14.9 ml/min; Est GFR (African American) 11.7 ml/min; Est GFR (Non-African American) 10.1 ml/min
[2023-03-22] MEDS: MIDODRINE HCL 2.5 MG TAB PO SCH ×2 (08:34→15:15)
[2023-03-22] MEDS: FOLIC ACID 1 MG TAB PO SCH (08:34)
[2023-03-22] MEDS: ACETAMINOPHEN 325 MG TAB PO SCH ×2 (08:34→15:15)
[2023-03-22] MEDS: ADVANCED PROBIOTIC 1250 MG CAPSULE PO SCH (08:35)
[2023-03-22] MEDS: NEPHROCAPS PO SCH (08:35)
[2023-03-22] MEDS: SEVELAMER HCL 800 MG TABLET PO SCH ×2 (08:35→15:15)
[2023-03-22] MEDS: FLUDROCORTISONE ACETATE 0.1 MG TAB PO SCH (08:36)
[2023-03-22] MEDS: CLOPIDOGREL BISULFATE 75 MG TAB PO SCH (08:36)
[2023-03-22] MEDS ORDERED: APIXABAN 5 MG TABLET PO SCH (09:00)
--- NOTE | 2023-03-22 13:09 | Nephrology Progress Note ---
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 He was admitted to [facility] 02/18/23-03/02/23 and had surgical debridement of his heels and has b/l heel osteomyelitis, was discharged to home w/ a PICC line in place and IV Daptomycin and Cefepime. He was readmitted to [facility] 03/15/23 as he was noted to have exposed bone at wound clinic and had surgical debridement of bilateral heel wounds 03/16/23. --Was getting dialysis this morning, tolerating dialysis. Plan to discharge him on IV antibiotic after dialysis this afternoon. He will go to outpatient dialysis unit on Friday as his regular schedule. Admission and Anticipated Discharge Date Admission Date: March 15, 2023 Subjective Roland is seen during dialysis this morning. Was tolerating dialysis well, asymptomatic although blood pressure was slightly low. Left upper extremity noted to be significantly swollen. Review of Systems Review of Systems: Detailed review of system was otherwise unremarkable. Physical Exam Constitutional: WD/WN, vitals as above + ill appearing; no acute distress Neck: normal visual inspection Respiratory: no respiratory distress Auscultation: lungs clear to auscultation bilaterally Cardiovascular: Rate/Rhythm: regular rate and regular rhythm Heart Sounds: normal S1 and normal S2 Extremities: + edema (left UE edema ) and + AV fistula (lL RC AVF with thrill and bruit) Musculoskeletal: b/l heel wrapped in dressing, no active bleeding. Neurologic: no focal motor deficits Psychiatric: Orientation: alert and oriented x 3 Results & Data Vital Signs (Past 12 Hours) Vital Signs Temp Pulse Pulse Resp BP BP Pulse Ox 03/22/23 12:00 82 95/73 L 03/22/23 11:30 90 90/54 L 03/22/23 11:00 63 163/104 H 03/22/23 10:30 100 H 110/45 L 03/22/23 10:00 96 H 117/59 L 03/22/23 09:30 101 H 159/56 H 03/22/23 09:20 87 107/63 03/22/23 09:08 36.7 C 87 03/22/23 08:00 36.7 C 86 18 133/71 92 03/22/23 08:00 36.6 C 91 H 16 138/62 95 03/22/23 02:44 36.4 C L 95 H 18 142/55 H 94 O2 Del Method 03/22/23 12:00 03/22/23 11:30 03/22/23 11:00 03/22/23 10:30 03/22/23 10:00 03/22/23 09:30 03/22/23 09:20 03/22/23 09:08 03/22/23 08:00 Room Air 03/22/23 08:00 Room Air 03/22/23 02:44 Room Air PG Care Time/CCT Total # of Minutes Spent Total Time Spent with Patient: Total time spent is greater than 50% in coordination of care (as documented) at patient's floor/unit and/or counseling patient: Coding Level of Care Code 89574 SUB INP/OBS CARE MIN Diagnoses End stage renal disease N18.6 Acute osteomyelitis of right calcaneus M86.171 Acute osteomyelitis of left calcaneus M86.172 Anemia D64.9
--- NOTE | 2023-03-22 13:34 | Discharge Summary ---
Date of Service March 22, 2023 Admission HPI Per Admitting Provider Rey Blue is a 72 year old male who presents to the ER on advice of his outpatient disability insurance claim examiner for debridement of his ongoing bilateral heel wounds with osteomyelitis. He was recently admitted from February 17 - March 02, 2023 for the same diagnosis and underwent bilateral heel debridement on February 18. He followed up with wound care as outpatient and referred back to Dr Marti as it was felt further debridement was required. This was performed somewhat in the office yesterday but was felt he required more extensive debridement under anesthesia. Therefore was referred back to the ER for admission for debridement under anesthesia potentially in the OR tomorrow. The patient successfully underwent hemodialysis today. He arrived post dialysis and due a midodrine and without taking his fludrocortisone this morning and was hypotensive. BP improved with 1L NSS bolus given in the ER. The patient reports no new complaints than from discharge. No fever or chills. His does note his heel wounds have been getting worse and they are unsure what boots he should be wearing at this time as they have been given multiple options. They have been complaint continuing on the daptomycin/cefepime given through a right arm PICC line. Principal Diagnosis Bilateral heel osteomyelitis status post debridement and ohhbbfupw18/17/[address] Marti Resetting of 6 weeks course of antibiotics to be from the date of surgery to be last dose on April 27, 2023 Discharge Exam Awake alert appropriate patient was seen on dialysis he endorses being back to his normal typical state. Previous discussions about going home and the amount of care he needs seem to be met with some resistance by family. family wishes to take him home although he is nonambulatory at this time Discharge Data Allergies Allergy/AdvReac Type Severity Reaction Status Date / Time amlodipine AdvReac Severe FLU Verified 03/05/23 13:20 SYMPTONS Consultations 03/15/23 12:22 ED Decision to Admit Stat 03/15/23 15:10 Consult Podiatry Routine 03/17/23 10:58 Consult Nephrology Routine Procedures Performed Operation Date: 03/16/23 09:30 Actual Procedures p Bilateral Heel Wound Debridement(Bilateral) - Sorin Marti, COREEN, MS Ordered Studies 03/15/23 16:25 MRI Ankle [MR ankle LT wo con] Stat MRI Ankle [MR ankle RT wo con] Stat Hospital Course (1) Acute osteomyelitis of left calcaneus: Pressure ulcer of bilateral heels, Stage 4 POA osteomyelitis, acute on chronic s/p osteotomy b/l heels All cultures including tissue and blood have not grown any organisms at this time Continue daptomycin and cefepime, initial course was dated back to previous hospital stay was supposed to be on February 18 through April 01 however with this recurrence and resetting with surgery likely will be 6 weeks from Debridement of bilateral heels 03/16/23 through Thursday, April 27, 2023 Postoperative bleeding has been controlled acute blood loss anemia did occur patient did receive transfusions with 2 unit packed red blood cells In hospital delirium has resolved (2) PAD (peripheral artery disease): Continue clopidogrel, atorvastatin, apixaban resumed postoperatively (3) Hematoma of right lower leg: Previous I&D, improving per his daughter (4) End stage renal disease: T,TR,Sat Consult nephrology on Friday if patient is expected to stay in hospital for this. (5) Atrial fibrillation, permanent: Rate controlled without AV neal blocking agents Will resume Eliquis (6) Anemia: Anemia both of chronic disease and blood loss requiring transfusion 2 units packed red blood cells on 03/20/2023 Iron level checked on 03/20 is replete Total Time Total Time Spent Total Time Spent (In Minutes): It required greater than 30 minutes to prepare this patient for discharge. Discharge Plan Discharge Items Patient Disposition: Home - Self-Care Reason For Visit: BILATERAL OSTEOMYELITIS,HYPOTENSION Discharge Diagnosis: Infection of both heels, with surgical debridement esrd on dialysis Activity: Per Instructions section Activity Comment: frequent repositioning and try to get out of bed daily Non-emergency contact: Primary Care Provider Call non-emergency contact if: your symptoms worsen Follow-up/Referrals: Tamiko Donovan DO [Primary Care Provider] - Diet: Carb Consistent or DM2 Addtl Attending Provider Instructions: please complete antibiotics until 04/27/23 please follow up with Dr Marti and Wound care Pending Studies at Discharge: Yes Studies:: cultures will be followed Stand-Alone Forms: My [facility] CamillaAutoeBid, Smoking Cessation Medications and DC Order Prescriptions: Continued Eliquis 5 mg tablet 5 mg PO BID Qty: 60 11RF folic acid 1 mg tablet 1 mg PO BID clopidogrel 75 mg tablet 75 mg PO DAILY sevelamer carbonate 800 mg tablet 800 mg PO TIDM Rx Instructions: 1 tablet by mouth with each meal atorvastatin 10 mg tablet 10 mg PO HS midodrine 5 mg tablet 5 mg PO TIDM Advanced Probiotic 625 mg (10 billion cell) Capsule 2 cap PO DAILY Qty: 30 0RF ProRenal 8 mg iron-800 mcg-1,000 unit tablet 1 tab PO DAILY lidocaine-prilocaine 2.5-2.5 % cream 1 applic topical DIRECTED Rx Instructions: APPLY SMALL AMT TO ACCESS SITE BEFORE DIALYSIS acetaminophen 650 mg Tablet Extended Release 1,300 mg PO DAILY PRN (Reason: Pain) fludrocortisone 0.1 mg tablet 0.1 mg PO DAILY cefepime 1 gram recon soln 1 g IV DAILY@1430 Rx Instructions: after dialysis daptomycin 350 mg recon soln 450 mg IV TUTH@1430 Rx Instructions: administer over 30 mins after dialysis end date: 04/01/23 daptomycin 350 mg Recon Soln 700 mg IV SA@1430 Rx Instructions: INFUSE OVER 1 HR VIA ELASTOMERIC PUMP GIVE AFTER DIALYSIS Discharge Orders: Discharge Order (Routine); Ordered 03/22/23 Ordered By: Terrence Suazo Admission Data Admit Date/Time: 03/15/23 12:13 Attending Provider: Terrence Suazo Admit Provider: Rickey Moran Primary Care Provider: Tamiko Donovan Other Providers: Rickey Moran; Sorin Marti; Darren Mcdowell; [place],Home Care; [facility],Fax Coding Level of Care Code 65444 INP/OBS DISCH >30 MIN Diagnoses Acute osteomyelitis of left calcaneus M86.172 PAD (peripheral artery disease) I73.9 Hematoma of right lower leg S80.11XA End stage renal disease N18.6 Atrial fibrillation, permanent I48.21 Anemia D64.9
[2023-03-22] MEDS ORDERED: DAPTOmycin 700 MG in SYRINGE 0 ML IV SCH (14:30)
[2023-03-22] MEDS: LIDOCAINE/PRILOCAINE 2.5% EA CRM EXT SCH (15:15)
[2023-03-22] MEDS: CEFEPIME 1,000 MG in SYRINGE 0 ML IV SCH (15:19)
== END 2023-03-22 17:14 | disposition home health service (06) | DRG 628 ==
LOC: ED 10:24 → 4W 12:13 → SUATTDRO 12:13 → 4W 14:43

== ENCOUNTER 2023-10-30 18:07 | Inpatient (IN) ==
[2023-10-30] MEDS: SODIUM CHLORIDE 0.9% 500 ML IV ONE (19:00)
--- NOTE | 2023-10-30 19:00 | XRay Report ---
XR chest 1V portable CLINICAL HISTORY: Sepsis TECHNIQUE: Single frontal radiograph of the chest was obtained. Comparison: Comparison is made to chest radiograph 03/15/2023 FINDINGS: No lines and tubes are seen. Cardiomegaly is noted. The aortic arch is calcified. The lungs are clear . No evidence of pleural effusion or pneumothorax. IMPRESSION: No acute abnormalities and in particular no radiographic evidence of pneumonia. ACT 112: Negative or not required by law. Electronically signed by: Danny Blank M.D. 10/30/2023 6:58 PM
[2023-10-30 19:06] LABS: Basophils # (auto) 0.04 K/uL (0.00-0.20); Basophils % (auto) 0.6 %; Eosinophils # (auto) 0.05 K/uL (0.00-0.50); Eosinophils % (auto) 0.7 %; Hemoglobin 11.3 g/dl (14.0-18.0); Immature Granulocytes # (auto) 0.02 K/uL (0.01-0.20); Immature Granulocytes % (auto) 0.3 %; Lymphocytes % (auto) 21.2 %; Mean Corpuscular Hemoglobin 29.2 pg (25.0-34.0); Mean Corpuscular Hgb Conc 31.4 g/dL (32.0-36.0); Mean Platelet Volume 10.3 fL (9.4-12.4); Monocytes # (auto) 0.75 K/uL (0.11-0.59); Monocytes % (auto) 10.6 %; Neutrophils # (auto) 4.73 K/uL (1.40-6.50); Neutrophils % (auto) 66.6 %; Platelet Count 189 K/uL (130-400); RDW Coefficient of Variation 14.6 % (11.5-14.5); RDW Standard Deviation 49.5 fL (36.4-46.3); Red Blood Count 3.87 M/uL (4.70-6.10); White Blood Count 7.09 K/ul (4.8-10.8)
[2023-10-30 19:08] LABS: Alanine Aminotransferase 9 U/L (7-52); Albumin Level 3.1 gm/dl (3.4-5.0); Alkaline Phosphatase 89 U/L (34-104); Anion Gap 5 (3-11); Aspartate Aminotransferase 19 U/L (13-39); BUN Creatinine Ratio 5.1 (10-20); Bilirubin Direct 0.1 mg/dl (0-0.2); Bilirubin,Total 0.6 mg/dl (0.2-1.0); Blood Urea Nitrogen 12 mg/dl (6-23); Calcium 8.6 mg/dl (8.6-10.3); Carbon Dioxide 36 mmol/L (21-32); Chloride 101 mmol/L (98-107); Est GFR (African American) 30.8 ml/min; Est GFR (Non-African American) 26.6 ml/min; Glucose 150 mg/dl (70-99(Fasting)); Magnesium 1.9 mg/dl (1.7-2.4); Potassium 3.8 mmol/L (3.5-5.1); Sodium 142 mmol/L (136-145); Total Protein 5.7 gm/dl (6.0-8.3)
[2023-10-30 19:14] LABS: Troponin I High Sensitivity 25.9 pg/ml (0-20)
[2023-10-30 19:17] LABS: INR 1.1 (0.9-1.1); Partial Thromboplastin Time 28 Seconds (21-31); Prothrombin Time 11.5 Seconds (9.0-12.0)
[2023-10-30] MEDS: SODIUM CHLORIDE 0.9% 1,000 ML IV SCH (19:24)
[2023-10-30] MEDS: CEFEPIME 2,000 MG/20 ML VIAL IV STA (19:29)
--- NOTE | 2023-10-30 21:28 | CT Scan Report ---
Exam(s): CT ABDOMEN + PELVIS Without Contrast EXAM: CT Abdomen and Pelvis Without Intravenous Contrast CLINICAL HISTORY: Recurrent there is a tract infections and hematuria TECHNIQUE: Axial computed tomography images of the abdomen and pelvis without intravenous contrast. CTDI is 25.86 mGy and DLP is 1209.85 mGy-cm. Automated exposure control was utilized for the study. A dose lowering technique was utilized adhering to the principles of ALARA. COMPARISON: CT abdomen and pelvis 2021 FINDINGS: Lung bases: Unremarkable. No mass. No consolidation. Pleural space: There is a small left pleural effusion. Heart: Cardiomegaly. ABDOMEN: Liver: Unremarkable. Gallbladder and bile ducts: Unremarkable. No calcified stones. No ductal dilation. Pancreas: Unremarkable. No ductal dilation. Spleen: Unremarkable. No splenomegaly. Adrenals: Unremarkable. No mass. Kidneys and ureters: Bilateral medullary nephrocalcinosis. Simple appearing bilateral renal cysts are present, no follow up is needed. The kidneys are otherwise unremarkable. No hydronephrosis. Stomach and bowel: Significant stool in the rectal vault is concerning for impaction. Diverticulosis. No obstruction. No mucosal thickening. PELVIS: Appendix: Normal appendix. Bladder: Thickening of the bladder wall is concerning for cystitis. No stones. Reproductive: Unremarkable as visualized. ABDOMEN and PELVIS: Intraperitoneal space: Unremarkable. No free air. No significant fluid collection. Bones/joints: There are degenerative changes of the spine. No acute fracture. No dislocation. Soft tissues: Small bilateral fat-containing inguinal hernias. Vasculature: Severe atherosclerosis. No abdominal aortic aneurysm. Lymph nodes: Unremarkable. No enlarged lymph nodes. IMPRESSION: 1. Bilateral mild medullary nephrocalcinosis. No hydronephrosis. 2. Thickening of the bladder wall is concerning for cystitis. 3. Significant stool in the rectal vault is concerning for impaction. 4. Diverticulosis. 5. Cardiomegaly. 6. There is a small left pleural effusion. Electronically signed by: Radha Hedrick MD 10/30/23 21:27 PM
--- NOTE | 2023-10-30 21:42 | History & Physical Report ---
Date of Service October 30, 2023 Assessment & Plan (1) Hematuria: (2) Orthostatic hypotension: (3) Hyperlipidemia: (4) Gross hematuria: (5) Cystitis: Plan Patient is a 73 yo M w/ a PMHx of CVA, end-stage renal disease/CKD w/ failed fistula, Hx of osteomyelitis of r. and l. calcaneus, peripheral artery disease, HLD, carotid and vertebral artery disease, T2DM, vit D deficiency presents w/ concerns for recurrent blood in urine of 2 days along w/ mild dysuria. 1) Hematuria/Cystitis - recurrent blood in urine after a round of IV and PO antibiotics, last course finished 2 days ago - CT-AP as above, importantly notes --> Thickening of the bladder wall is concerning for cystitis. Significant stool in the rectal vault is concerning for impaction. - Hgb, 11.3; Pts, 189; procalcitonin, 0.58 - hold Eliquis, hold Plavix - continue cefepime, 2000 mg, IV, q8hrs - UA pending, UCx pending and blood Cx pending also - consult urology, NPO at midnight for possibility of cystoscopy tomorrow - previous Ur Cx in August 2023/June 2023 yielded king-sensitive Klebsiella/nitrofurantoin-sensitive Enterococcus faecium, respectively 2) Hypotension/orthostatic hypotension - BP 66/43 on admission, given 500 mL NSS --> repeat BP 106/85 - pt notes chronic orthostatic hypotension for which he takes midodrine, 5 mg, PO, TID and fludrocortisone, 0.1 mg, PO, daily - restart the midodrine 3) CKD/ESRD on dialysis (,,) - continue Sevelamer - consult nephrology if patient will be on Friday for inpatient dialysis - restart the Sevelamer - continue the ProRenal vitamin, folic acid, Liquacel 4) Hyperlipidemia - continue atorvastatin, 10 mg, PO, QHS 5) T2DM - not on any oral home meds for T2DM, Glu, 150 on admission - SSI: Range 110-150, CF 50, CR 25 6) Pressure ulcers of heel/Hx of osteomyelitis of heels - continue to use foam boots and pressure ulcer silicone foam dressing as needed Code status: Full code Disposition: Med-Surg w/ Telemetry DVT Prophylaxis: SCD's (to the knee) DELORISI: NPO at midnight History of Present Illness Chief Complaint: gross hematuria Primary Care Provider: Tamiko Donovan DO Patient is a 73 yo M w/ a PMHx of CVA, end-stage renal disease/CKD w/ failed fistula, Hx of osteomyelitis of r. and l. calcaneus, peripheral artery disease, HLD, HTN, carotid and vertebral artery disease, T2DM, vit D deficiency presents w/ concerns for recurrent blood in urine of 2 days along w/ mild dysuria. Pt first had cloudy, slightly bloody urine about 2 wks ago while in Rehab at [facility] and that is when he got his first round of antibiotics for his UTI. Now after a round of IV antibiotics and PO antibiotics patient has recurrent hematuria and mild dysuria. Patient uncertain of the antibiotics that he was on but daughter can be called for any collateral confirmation. Besides the hematuria, mild dysuria patient not having any other complaints. Allergies Allergy/AdvReac Type Severity Reaction Status Date / Time amlodipine AdvReac Severe FLU Verified 05/23/23 08:04 [facility] Home Medications Medication Instructions Recorded Confirmed Type vit B complx, C-iron 8 mg-folic 1 tab PO DAILY 08/17/20 10/30/23 History acid 800 mcg-D3 1,000 unit-zinc tablet (ProRenal) fludrocortisone 0.1 mg tablet 0.1 mg PO QPM 03/15/23 10/30/23 History atorvastatin 10 mg tablet 10 mg PO HS #30 tabs 04/04/23 10/30/23 Rx clopidogrel 75 mg tablet 75 mg PO DAILY #30 tabs 04/04/23 10/30/23 Rx folic acid 1 mg tablet 1 mg PO BID #60 tabs 04/04/23 10/30/23 Rx amino acids-protein hydrolysate 16 30 ml PO BID #1,920 mL 07/23/23 10/30/23 Rx gram-100 kcal/30 mL oral liquid (Liquacel) apixaban 5 mg tablet (Eliquis) 5 mg PO BID #60 tabs 09/16/23 10/30/23 Rx Past Med/Surg History Problem List Hematuria Acute osteomyelitis of right calcaneus (Acute) Acute osteomyelitis of left calcaneus (Acute) Hematoma of right lower leg PAD (peripheral artery disease) Bacteroides infection Acute osteomyelitis of right calcaneus Acute osteomyelitis of left calcaneus Heel ulceration Hyperglycemia (Acute) Encounter for pre-operative examination CVA (cerebral vascular accident) End stage renal disease (Acute) Unstageable pressure ulcer of right heel Unstageable pressure ulcer of left heel Sepsis Nonhealing wound of heel (Acute) Chronic kidney disease-mineral and bone disorder Anemia Left arm weakness (Acute) Paresthesia of left arm (Acute) Dyspnea on exertion Presence of arteriovenous fistula for hemodialysis, primary Orthostatic hypotension Carotid arterial disease (Acute) Acute ischemic stroke (Acute) Chronic cerebral ischemia Vertebral artery disease Hyperlipidemia Emphysematous pyelonephritis (Acute) Acute hypotension (Acute) Atrial fibrillation, permanent Syncope Hypoxia (Acute) Pneumonia due to 2019 novel coronavirus (Acute) Dialysis AV fistula malfunction Vitamin D deficiency (Acute) UTI (urinary tract infection) (Acute) Type 2 diabetes mellitus with complications (Acute) Obesity (Acute) Incomplete bladder emptying (Acute) Gross hematuria (Acute) Essential (primary) hypertension (Acute) Edema (Acute) Dysuria (Acute) Dyslipidemia (Acute) Diabetic nephropathy associated with type 2 diabetes mellitus (Acute) Cystitis (Acute) Arthritis (Acute) Forearm fractures, both bones, closed (Acute) Fall (Acute) Medical History CKD (chronic kidney disease) Fistula Diabetes type 2, controlled ESRD (end stage renal disease) on dialysis Hypertension Surgical History S/P carotid endarterectomy History of tooth extraction History of surgery on arm Family History Mother Cancer Father Stomach cancer Esophagus cancer Cancer Cancer of bowel Sister Kidney stone Social History Smoking Status: Never smoker Second Hand Exposure: Yes; Do You Dip or Chew Tobacco: No; Hx Alcohol Use: No Hx Substance Use: No Preferred Language: Niuean Communication Ability: Effective Communication Ability Comment: Does not read or write well per pt Visual Impairment: Limited Hearing Ability: Hard of Hearing Property Field Adjuster Required: No Beliefs That Will Affect Care: None marital status: Current Living Situation: Family Current Living Situation Comment: daughter lives w/ patient current occupational status: retired current occupation: retired age 64 from [email or web address] How many Children do You have: 1 How many Children do You have Comment: Daughter takes care of patient, grandchildren also assist with care as needed. Other Information That Helps Us Care for You: No Feels Safe at Home: Yes Safety Concerns: Feels Safe At This Time Diet: regular during the past year weight has: decreased > 10 lbs Assistive Devices: Glasses, Hospital Bed and Wheelchair Review of Systems Constitutional: no fever, no chills, no fatigue and no weakness Ear, Nose, Mouth, Throat: no nasal congestion, no nasal discharge and no sore throat Respiratory: no cough and no dyspnea Cardiovascular: + lightheadedness (when he doesn't take orthostatic hypotension meds); no chest pain and no palpitations Gastrointestinal: no abdominal pain, no nausea, no vomiting and no diarrhea/loose stools Genitourinary: + dysuria (both dysuria and hematuria st arted again after starting Abx) and + hematuria; no urinary frequency or no flank pain Hematologic / Lymphatic: no easy bleeding and no easy bruising Physical Exam Constitutional: WD/WN, vitals as above Respiratory: normal respiratory effort, lungs clear to auscultation Cardiovascular: RRR, no murmur, no edema Extremities: normal capillary refill; no pedal edema Gastrointestinal (Abdomen): normal bowel sounds, soft, nontender, no hepatosplenomegaly Percussion/Palpation: + abdomen tender (suprapubic tenderness) Psychiatric: A+Ox3, euthymic affect Genitourinary: no CVA tenderness Results & Data Results & Data Vital Signs (Past 12 Hours) Vital Signs Temp Pulse Pulse Resp BP BP Pulse Ox 10/30/23 20:07 79 16 105/46 L 97 10/30/23 19:30 89 16 106/85 96 10/30/23 19:13 18 148/72 H 10/30/23 18:46 92 H 21 86/60 L 92 10/30/23 18:42 94 10/30/23 18:27 92 H 17 104/64 94 10/30/23 18:14 36.6 C 98 H 18 66/43 L 93 O2 Del Method 10/30/23 20:07 Room Air 10/30/23 19:30 Room Air 10/30/23 19:13 10/30/23 18:46 10/30/23 18:42 Room Air 10/30/23 18:27 10/30/23 18:14 Room Air Diagnostic Findings Chest X-Ray 10/30/23 18:24 XR chest 1V portable CLINICAL HISTORY: Sepsis TECHNIQUE: Single frontal radiograph of the chest was obtained. Comparison: Comparison is made to chest radiograph 03/15/2023 FINDINGS: No lines and tubes are seen. Cardiomegaly is noted. The aortic arch is calcified. The lungs are clear. No evidence of pleural effusion or pneumothorax. IMPRESSION: No acute abnormalities and in particular no radiographic evidence of pneumonia. ACT 112: Negative or not required by law. Electronically signed by: Danny Blank M.D. 10/30/2023 6:58 PM Abdomen/Pelvis CT 10/30/23 18:59 Exam(s): CT ABDOMEN + PELVIS Without Contrast EXAM: CT Abdomen and Pelvis Without Intravenous Contrast CLINICAL HISTORY: Recurrent there is a tract infections and hematuria TECHNIQUE: Axial computed tomography images of the abdomen and pelvis without intravenous contrast. CTDI is 25.86 mGy and DLP is 1209.85 mGy-cm. Automated exposure control was utilized for the study. A dose lowering technique was utilized adhering to the principles of ALARA. COMPARISON: CT abdomen and pelvis 2021 FINDINGS: Lung bases: Unremarkable. No mass. No consolidation. Pleural space: There is a small left pleural effusion. Heart: Cardiomegaly. ABDOMEN: Liver: Unremarkable. Gallbladder and bile ducts: Unremarkable. No calcified stones. No ductal dilation. Pancreas: Unremarkable. No ductal dilation. Spleen: Unremarkable. No splenomegaly. Adrenals: Unremarkable. No mass. Kidneys and ureters: Bilateral medullary nephrocalcinosis. Simple appearing bilateral renal cysts are present, no follow up is needed. The kidneys are otherwise unremarkable. No hydronephrosis. Stomach and bowel: Significant stool in the rectal vault is concerning for impaction. Diverticulosis. No obstruction. No mucosal thickening. PELVIS: Appendix: Normal appendix. Bladder: Thickening of the bladder wall is concerning for cystitis. No stones. Reproductive: Unremarkable as visualized. ABDOMEN and PELVIS: Intraperitoneal space: Unremarkable. No free air. No significant fluid collection. Bones/joints: There are degenerative changes of the spine. No acute fracture. No dislocation. Soft tissues: Small bilateral fat-containing inguinal hernias. Vasculature: Severe atherosclerosis. No abdominal aortic aneurysm. Lymph nodes: Unremarkable. No enlarged lymph nodes. IMPRESSION: 1. Bilateral mild medullary nephrocalcinosis. No hydronephrosis. 2. Thickening of the bladder wall is concerning for cystitis. 3. Significant stool in the rectal vault is concerning for impaction. 4. Diverticulosis. 5. Cardiomegaly. 6. There is a small left pleural effusion. Electronically signed by: Radha Hedrick MD 10/30/23 21:27 PM Supervising Physician Co-Signing Physician Notes Patient seen and examined, chart reviewed, case discussed with Dr. Fischer and I agree with the assessment and plan as above.
--- NOTE | 2023-10-30 23:55 | Emergency Department Note ---
ED Provider Note CHIEF COMPLAINT: Blood in the urine HISTORY OF PRESENT ILLNESS: This 73-year-old male patient with past medical history of osteomyelitis, chronic pressure wounds of the bilateral heels, peripheral arterial disease, CVA, sepsis, end-stage renal disease on hemodialysis, ischemic stroke, vertebral artery disease, atrial fibrillation, uncontrolled type 2 diabetes, hypertension, peripheral neuropathy patient presents to the emergency department with complaints of burning with urination and hematuria today. Daughter states he has been on several different antibiotics for UTI recently. She states she called her PCP today stating that the UA is positive. The patient is largely bedbound due to his deconditioning and poststroke state. He has not had a clear fever, cough or shortness of breath. Of note patient had a full dialysis treatment this morning. REVIEW OF SYSTEMS: A review of systems was performed with positives and pertinent negatives listed in the history of present illness. 10 systems were reviewed and are otherwise negative. ALLERGIES: see below MEDICATIONS: see below PMH: see below SOCIAL HISTORY: see below DDx: Diverticulitis, viral illness, foodborne process, colitis, obstruction, UTI among others. PHYSICAL EXAM: Vital signs reviewed. Noted to be hypoxic in triage General: chronically ill-appearing 73-year-old male, in no significant distress. HEENT: No scleral icterus, PERRLA, neck supple. Atraumatic. Cardiovascular: Regular rate and rhythm, no extra sounds. Pulmonary: Clear to auscultation bilaterally, normal work of breathing. Abdomen: Soft, nontender, nondistended, positive bowel sounds. Musculoskeletal: Atraumatic, no peripheral edema. deconditioned all 4 extremities, Neurologic: Patient awake alert and oriented x 3, speech is clear Skin: Warm, dry, well healing/healed ulcerations on the bilateral heels. EMERGENCY DEPARTMENT COURSE/MDM: [] MONITORING: An order for cardiac monitoring was placed and the patient is noted to be in a [] at [] beats per minute. RADIOLOGY: EKG: DISPOSITION: Past Med/Surg History Problem List Hematuria Acute osteomyelitis of right calcaneus (Acute) Acute osteomyelitis of left calcaneus (Acute) Hematoma of right lower leg PAD (peripheral artery disease) Bacteroides infection Acute osteomyelitis of right calcaneus Acute osteomyelitis of left calcaneus Heel ulceration Hyperglycemia (Acute) Encounter for pre-operative examination CVA (cerebral vascular accident) End stage renal disease (Acute) Unstageable pressure ulcer of right heel Unstageable pressure ulcer of left heel Sepsis Nonhealing wound of heel (Acute) Chronic kidney disease-mineral and bone disorder Anemia Left arm weakness (Acute) Paresthesia of left arm (Acute) Dyspnea on exertion Presence of arteriovenous fistula for hemodialysis, primary Orthostatic hypotension Carotid arterial disease (Acute) Acute ischemic stroke (Acute) Chronic cerebral ischemia Vertebral artery disease Hyperlipidemia Emphysematous pyelonephritis (Acute) Acute hypotension (Acute) Atrial fibrillation, permanent Syncope Hypoxia (Acute) Pneumonia due to 2019 novel coronavirus (Acute) Dialysis AV fistula malfunction Vitamin D deficiency (Acute) UTI (urinary tract infection) (Acute) Type 2 diabetes mellitus with complications (Acute) Obesity (Acute) Incomplete bladder emptying (Acute) Gross hematuria (Acute) Essential (primary) hypertension (Acute) Edema (Acute) Dysuria (Acute) Dyslipidemia (Acute) Diabetic nephropathy associated with type 2 diabetes mellitus (Acute) Cystitis (Acute) Arthritis (Acute) Forearm fractures, both bones, closed (Acute) Fall (Acute) Medical History CKD (chronic kidney disease) Fistula Diabetes type 2, controlled ESRD (end stage renal disease) on dialysis Hypertension Surgical History S/P carotid endarterectomy History of tooth extraction History of surgery on arm Family History Mother Cancer Father Stomach cancer Esophagus cancer Cancer Cancer of bowel Sister Kidney stone Social History Smoking Status: Never smoker Second Hand Exposure: No; Do You Dip or Chew Tobacco: No; Hx Alcohol Use: No Hx Substance Use: No Preferred Language: Guatemalan Communication Ability: Effective Communication Ability Comment: HX STROKE - SPEECH GARBLED. Visual Impairment: Limited Hearing Ability: Hard of Hearing Foam Rubber Mixer Required: No Beliefs That Will Affect Care: None marital status: Current Living Situation: Family Current Living Situation Comment: daughter lives w/ patient current occupational status: retired current occupation: retired age 64 from [employer] How many Children do You have: 1 How many Children do You have Comment: Daughter takes care of patient, grandchildren also assist with care as needed. Feels Safe at Home: Yes Diet: regular during the past year weight has: decreased > 10 lbs Assistive Devices: Wheelchair Allergies Allergies Allergy/AdvReac Type Severity Reaction Status Date / Time amlodipine AdvReac Severe FLU Verified 05/23/23 08:04 [facility] Home Meds Home Medications Medication Instructions Recorded Confirmed vit B complx, C-iron 8 mg-folic 1 tab PO DAILY 08/17/20 10/30/23 acid 800 mcg-D3 1,000 unit-zinc tablet (ProRenal) fludrocortisone 0.1 mg tablet 0.1 mg PO QPM 03/15/23 10/30/23 Previous Rx's Medication Instructions Recorded atorvastatin 10 mg tablet 10 mg PO HS #30 tabs 04/04/23 clopidogrel 75 mg tablet 75 mg PO DAILY #30 tabs 04/04/23 folic acid 1 mg tablet 1 mg PO BID #60 tabs 04/04/23 amino acids-protein hydrolysate 16 30 ml PO BID #1,920 mL 07/23/23 gram-100 kcal/30 mL oral liquid (Liquacel) apixaban 5 mg tablet (Eliquis) 5 mg PO BID #60 tabs 09/16/23 Results & Data (ED) Vital Signs Vital Signs - 24 hr 10/30/23 18:14 10/30/23 18:27 10/30/23 18:42 Temperature 36.6 C Temperature Source Oral Pulse Rate 98 H 92 H Pulse Rate [Apical] Pulse Rhythm [Apical] Pulse Strength [Apical] Respiratory Rate 18 17 Respiratory Effort / Characteristics Non-Labored Spontaneous Respiratory Depth Normal Respiratory Pattern Regular Blood Pressure 66/43 L 104/64 Blood Pressure [Right Arm] Blood Pressure Mean 50 77 Blood Pressure Mean [Right Arm] Blood Pressure Position Sitting Blood Pressure Position [Right Arm] Pulse Oximetry 93 94 94 Oxygen Delivery Method Room Air Room Air Sepsis Recent Fever Within 48 Hours No Sepsis New/Unexplained Change in Mental Status No Sepsis Action Taken by Nursing No Action Required 10/30/23 18:46 10/30/23 19:13 10/30/23 19:30 Temperature Temperature Source Pulse Rate 92 H Pulse Rate [Apical] 89 Pulse Rhythm [Apical] Regular Pulse Strength [Apical] Normal Respiratory Rate 21 18 16 Respiratory Effort / Characteristics Non-Labored Spontaneous Non-Labored Spontaneous Respiratory Depth Normal Normal Respiratory Pattern Regular Regular Blood Pressure 86/60 L Blood Pressure [Right Arm] 148/72 H 106/85 Blood Pressure Mean 63 Blood Pressure Mean [Right Arm] 97 92 Blood Pressure Position Blood Pressure Position [Right Arm] Sitting Sitting Pulse Oximetry 92 96 Oxygen Delivery Method Room Air Sepsis Recent Fever Within 48 Hours Sepsis New/Unexplained Change in Mental Status Sepsis Action Taken by Nursing 10/30/23 20:07 10/30/23 22:00 10/30/23 23:16 Temperature Temperature Source Pulse Rate 76 Pulse Rate [Apical] 79 83 Pulse Rhythm [Apical] Regular Regular Pulse Strength [Apical] Normal Normal Respiratory Rate 16 18 Respiratory Effort / Characteristics Non-Labored Spontaneous Non-Labored Spontaneous Respiratory Depth Normal Normal Respiratory Pattern Regular Regular Blood Pressure Blood Pressure [Right Arm] 105/46 L 144/76 H Blood Pressure Mean Blood Pressure Mean [Right Arm] 65 98 Blood Pressure Position Blood Pressure Position [Right Arm] Sitting Lying Pulse Oximetry 97 96 Oxygen Delivery Method Room Air Room Air Sepsis Recent Fever Within 48 Hours Sepsis New/Unexplained Change in Mental Status Sepsis Action Taken by Skilled Nursing Medications Current Medication List: was personally reviewed by me Laboratory Data Attestation: I reviewed the patient's lab results. 10/30/23 18:30 10/30/23 18:30 Lab Results 10/30/23 10/30/23 Range/Units 18:30 20:26 WBC 7.09 (4.8-10.8) K/ul RBC 3.87 L (4.70-6.10) M/uL Hgb 11.3 L (14.0-18.0) g/dl Hct 36.0 L (42.0-52.0) % MCV 93.0 (80.0-100.0) fL MCH 29.2 (25.0-34.0) pg MCHC 31.4 L (32.0-36.0) g/dL RDW Std Deviation 49.5 H (36.4-46.3) fL RDW Coeff of Mukul 14.6 H (11.5-14.5) % Plt Count 189 (130-400) K/uL MPV 10.3 (9.4-12.4) fL Immature Gran % (Auto) 0.3 % Neut % (Auto) 66.6 % Lymph % (Auto) 21.2 % Flagler % (Auto) 10.6 % Eos % (Auto) 0.7 % Baso % (Auto) 0.6 % Neut # (Auto) 4.73 (1.40-6.50) K/uL Lymph # (Auto) 1.50 (1.20-3.40) K/uL Flagler # (Auto) 0.75 H (0.11-0.59) K/uL Eos # (Auto) 0.05 (0.00-0.50) K/uL Baso # (Auto) 0.04 (0.00-0.20) K/uL Immature Gran # (Auto) 0.02 (0.01-0.20) K/uL PT 11.5 (9.0-12.0) Seconds INR 1.1 (0.9-1.1) APTT 28 (21-31) Seconds PTT Ratio 1.0 Sodium 142 (136-145) mmol/L Potassium 3.8 (3.5-5.1) mmol/L Chloride 101 (98-107) mmol/L Carbon Dioxide 36 H (21-32) mmol/L Anion Gap 5 (3-11) BUN 12 (6-23) mg/dl Creatinine 2.34 H (0.6-1.4) mg/dl Est Cr Clr Drug Dosing Not Reportable Est GFR ( Amer) 30.8 ml/min Est GFR (Non-Af Amer) 26.6 ml/min BUN/Creatinine Ratio 5.1 L (10-20) Glucose 150 H (70-99(Fasting)) mg/dl Lactate 2.5 H* 1.7 (0.4-2.0) mmol/L Calcium 8.6 (8.6-10.3) mg/dl Magnesium 1.9 (1.7-2.4) mg/dl Total Bilirubin 0.6 (0.2-1.0) mg/dl Direct Bilirubin 0.1 (0-0.2) mg/dl AST 19 (13-39) U/L ALT 9 (7-52) U/L Alkaline Phosphatase 89 (34-104) U/L Troponin I High Sens 25.9 H 26.8 H (0-20) pg/ml Total Protein 5.7 L (6.0-8.3) gm/dl Albumin 3.1 L (3.4-5.0) gm/dl Procalcitonin 0.58 H (0-0.5) ng/ml Administered Medications Discontinued Medications Sodium Chloride (Nss) 1,000 mls @ 999 mls/hr IV .Q1H1M JENNIFER Stop: 10/30/23 19:30 Last Admin: 10/30/23 19:24 Dose: Not Given Documented By: OREN Cefepime HCl (Maxipime) 2,000 mg in 20 mls @ 5 mls/min IV NOW STA; Protocol Stop: 10/30/23 18:27 Last Admin: 10/30/23 19:29 Dose: 5 mls/min Documented By: OREN Sodium Chloride (Nss) 500 mls @ 999 mls/hr IV .Q31M ONE Stop: 10/30/23 19:06 Last Infusion: 10/30/23 19:37 Dose: Infused Documented By: Admin: 10/30/23 19:00 Dose: 999 mls/hr Documented By: OREN Imaging Data Radiologist's Impression: Chest X-Ray 10/30/23 18:24 XR chest 1V portable CLINICAL HISTORY: Sepsis TECHNIQUE: Single frontal radiograph of the chest was obtained. Comparison: Comparison is made to chest radiograph 03/15/2023 FINDINGS: No lines and tubes are seen. Cardiomegaly is noted. The aortic arch is calcified. The lungs are clear. No evidence of pleural effusion or pneumothorax. IMPRESSION: No acute abnormalities and in particular no radiographic evidence of pneumonia. ACT 112: Negative or not required by law. Electronically signed by: Danny Blank M.D. 10/30/2023 6:58 PM Abdomen/Pelvis CT 10/30/23 18:59 Exam(s): CT ABDOMEN + PELVIS Without Contrast EXAM: CT Abdomen and Pelvis Without Intravenous Contrast CLINICAL HISTORY: Recurrent there is a tract infections and hematuria TECHNIQUE: Axial computed tomography images of the abdomen and pelvis without intravenous contrast. CTDI is 25.86 mGy and DLP is 1209.85 mGy-cm. Automated exposure control was utilized for the study. A dose lowering technique was utilized adhering to the principles of ALARA. COMPARISON: CT abdomen and pelvis 2021 FINDINGS: Lung bases: Unremarkable. No mass. No consolidation. Pleural space: There is a small left pleural effusion. Heart: Cardiomegaly. ABDOMEN: Liver: Unremarkable. Gallbladder and bile ducts: Unremarkable. No calcified stones. No ductal dilation. Pancreas: Unremarkable. No ductal dilation. Spleen: Unremarkable. No splenomegaly. Adrenals: Unremarkable. No mass. Kidneys and ureters: Bilateral medullary nephrocalcinosis. Simple appearing bilateral renal cysts are present, no follow up is needed. The kidneys are otherwise unremarkable. No hydronephrosis. Stomach and bowel: Significant stool in the rectal vault is concerning for impaction. Diverticulosis. No obstruction. No mucosal thickening. PELVIS: Appendix: Normal appendix. Bladder: Thickening of the bladder wall is concerning for cystitis. No stones. Reproductive: Unremarkable as visualized. ABDOMEN and PELVIS: Intraperitoneal space: Unremarkable. No free air. No significant fluid collection. Bones/joints: There are degenerative changes of the spine. No acute fracture. No dislocation. Soft tissues: Small bilateral fat-containing inguinal hernias. Vasculature: Severe atherosclerosis. No abdominal aortic aneurysm. Lymph nodes: Unremarkable. No enlarged lymph nodes. IMPRESSION: 1. Bilateral mild medullary nephrocalcinosis. No hydronephrosis. 2. Thickening of the bladder wall is concerning for cystitis. 3. Significant stool in the rectal vault is concerning for impaction. 4. Diverticulosis. 5. Cardiomegaly. 6. There is a small left pleural effusion. Electronically signed by: Radha Hedrick MD 10/30/23 21:27 PM Discharge Plan Visit Data Chief Complaint: Hematuria Stated Complaint: HEMATURIA, DIALYSIS PATIENT, DOC REF ED Provider: Renetta Saleh Forms Stand Alone Forms: [facility] Prescriptions Prescriptions: No Action folic acid 1 mg tablet 1 mg PO BID Qty: 60 3RF Rx Instructions: NEEDS TONIGHTS DOSE atorvastatin 10 mg tablet 10 mg PO HS Qty: 30 2RF clopidogrel 75 mg tablet 75 mg PO DAILY Qty: 30 2RF Liquacel 16-100 gram-kcal/30 mL liquid 30 ml PO BID Qty: 1920 2RF Eliquis 5 mg tablet 5 mg PO BID Qty: 60 11RF ProRenal 8 mg iron-800 mcg-1,000 unit tablet 1 tab PO DAILY Rx Instructions: NEEDS TONIGHT fludrocortisone 0.1 mg tablet 0.1 mg PO QPM Rx Instructions: NEEDS TONIGHT Referrals Referrals: Tamiko Donovan DO [Primary Care Provider] -
[2023-10-31] MEDS ORDERED: GLUCAGON FOR INJ 1 MG VIAL SQ PRN (01:49)
[2023-10-31] MEDS ORDERED: DEXTROSE 50% 50 ML SYRINGE IV PRN (01:49)
[2023-10-31] MEDS ORDERED: ACETAMINOPHEN 325 MG TAB PO PRN (01:49)
[2023-10-31] MEDS ORDERED: GLUCOSE 10 TAB/TUBE PO PRN (01:49)
[2023-10-31] MEDS ORDERED: GLUCOSE 40% GEL 15 GM TUBE PO PRN (01:49)
[2023-10-31] MEDS ORDERED: CARBOHYDRATES FOR HYPOGLYCEMIA PO PRN (01:49)
--- OUTSIDE RECORDS SUMMARY | 2023-10-31 04:48 | External Medical Summary ---
Author Name UNSPECIFIED Address Unknown Organization [facility] History of Encounters Reason for Assessment: Recertification ( follow-up) reassessment Functional Assessment Patient Has At Least 1 Unhea led Pressure Ulcer At Stage 2 Or Higher: Yes Current Ability: Bathing: Unable to use the shower or tub, but able to participate in bathing self in bed, at the sink, in bedside chair, or on commode, with the assistance or supervision of another person throughout the bath. Current Ability: Ambulation: Chairfast, unable to ambulate and is unable to wheel self.
--- OUTSIDE RECORDS SUMMARY | 2023-10-31 04:48 | External Medical Summary ---
Author Name UNSPECIFIED Address Unknown Organization [facility] History of Encounters Reason for Assessment: Discharge from [facility] Inpatient Facility where the patient been admitted: No inpatient facility admission Discharge Disposition: Patient remained in the community (without formal assistive services) Functional Assessment Patient Has At Least 1 Unhea led Pressure Ulcer At Stage 2 Or Higher: Yes When Dyspneic: With moderate exerti on (e.g., while dressing, using commode or bedpan, walking distances less than 20 feet) Bowel Incontinence Frequency: Very rarel y or never has bowel incontinence Cognitive Functioning: Requires promptin g (cueing, repetition, reminders) only under stressful or unfamiliar conditions. When Confused (Reported or Observed): In new or complex situations only Cognitive and Behavioral and Psychiatric Symptoms: None [...]
--- NOTE | 2023-10-31 06:40 | Billing Data ---
Date of Service October 30, 2023 Coding Level of Care Code 12966 INT INP/OBS CARE
[2023-10-31] MEDS: MIDODRINE HCL 2.5 MG TAB PO SCH (07:53)
[2023-10-31] MEDS: NEPHROCAPS PO SCH (07:53)
[2023-10-31] MEDS: PROSOURCE NO CARB 30 ML/PKT PO SCH (07:53)
[2023-10-31] MEDS: FOLIC ACID 1 MG TAB PO SCH (07:53)
[2023-10-31] MEDS: SEVELAMER CARBONATE 800 MG TAB PO SCH (07:53)
[2023-10-31 08:06] LABS: Appearance Urine Turbid (Clear); Bilirubin Urine 1+ (Negative); Blood Urine 3+ (Negative); Color Urine Red; Glucose Urine UA Negative (Negative); Ketones Urine Trace (Negative); Leukocyte Esterase Urine 3+ (Negative); Nitrite Urine Positive (Negative); Protein Urine 3+ (Negative); Urobilinogen Urine Negative (Negative); pH Urine 8.5 (4.5-7.5)
[2023-10-31 08:18] LABS: Epithelial Cell Urine 0-2 /hpf (0-2); RBC Urine >20 /hpf (0-2); WBC Urine >50 /hpf (0-5)
[2023-10-31 08:19] LABS: Bacteria Urine 2+ (None Seen)
[2023-10-31] MEDS: INSULIN ASPART PER UNIT CHARGE SC SCH (08:37)
--- NOTE | 2023-10-31 09:19 | Urology Consultation ---
Date of Consultation October 31, 2023 Assessment & Plan (1) Hematuria: (2) UTI (urinary tract infection): 73-year-old male admitted for hematuria and suspected UTI. He is afebrile and hemodynamically stable Labs reviewedcreatinine 2.34, no leukocytosis, hemoglobin 11.3 Urinalysis today is suspicious for infection Urine and blood cultures are pending Continue with broad-spectrum antibiotics and narrow per sensitivity data when available CT abdomen pelvis reviewedBilateral mild medullary nephrocalcinosis, no hydronephrosis, bladder wall thickening, no clot within the bladder noted He is voiding spontaneously No acute intervention warranted at this time Recommend supportive care and antibiotics He can be discharged from [facility] when medically stable Recommend hematuria workup as an outpatient including cystoscopy Will arrange follow-up with our service will sign off, please contact our service with any additional questions or concerns History of Present Illness Attending Physician: Sylvester Bravo MD History of Present Illness This is a 73-year-old male with past medical history of end-stage renal disease on dialysis, CVA, history of osteomyelitis, peripheral artery disease, atrial fibrillation, hyperlipidemia and type 2 diabetes who presented to the emergency department on 10/30/2023 for evaluation of dysuria and recurrent hematuria. On arrival to ED, he was afebrile, hypotensive, but otherwise stable vitals on room air. Lab work reviewed and showed a creatinine of 2.34, WBC 7.09, hemoglobin 11.3, lactate 2.5. Blood cultures obtained. Workup included CT abdomen pelvis without contrast which showed bilateral mild medullary nephrocalcinosis, no hydronephrosis. Bladder wall thickening. Significant stool in the rectal vault concerning for impaction. He was treated with IV fluids and cefepime. He was admitted to the hospital medicine service for hematuria/cystitis and hypotension. Urology is consulted for hematuria. Urinalysis collected today showed 3+ blood, positive nitrates, 3+ LE, >20 RBC, >50 WBC and 2+ bacteria. Urine culture collected and pending. Recent urine cultures reviewedKlebsiella 09/05/2023, Enterococcus 07/04/2023. Patient seen and examined at bedside this morning. He reports he voids 1-2 times per day. He voided this morning and it was sent for UA and culture. He reports bloody urine, but denies any significant clots. He feels like he is emptying his bladder. He reports some mild dysuria with urination. He denies flank or suprapubic discomfort. No nausea or vomiting. No fever or chills. He denies personal or family history of malignancy. Never smoker. He reports he has seen urology in the past and did have a cystoscopy in 2019. Allergies Allergy/AdvReac Type Severity Reaction Status Date / Time amlodipine AdvReac Severe FLU Verified 05/23/23 08:04 [facility] Home Medications Medication Instructions Recorded Confirmed Type vit B complx, C-iron 8 mg-folic 1 tab PO DAILY 08/17/20 10/30/23 History acid 800 mcg-D3 1,000 unit-zinc tablet (ProRenal) fludrocortisone 0.1 mg tablet 0.1 mg PO QPM 03/15/23 10/30/23 History atorvastatin 10 mg tablet 10 mg PO HS #30 tabs 04/04/23 10/30/23 Rx clopidogrel 75 mg tablet 75 mg PO DAILY #30 tabs 04/04/23 10/30/23 Rx folic acid 1 mg tablet 1 mg PO BID #60 tabs 04/04/23 10/30/23 Rx amino acids-protein hydrolysate 16 30 ml PO BID #1,920 mL 07/23/23 10/30/23 Rx gram-100 kcal/30 mL oral liquid (Liquacel) apixaban 5 mg tablet (Eliquis) 5 mg PO BID #60 tabs 09/16/23 10/30/23 Rx Patient History Medical History CKD (chronic kidney disease) Fistula left arm Diabetes type 2, controlled ESRD (end stage renal disease) on dialysis Hypertension Surgical History S/P carotid endarterectomy History of tooth extraction History of surgery on arm Family History Mother , age 65 of cancer -uncertain type Cancer Father , in his 50s of cancer Stomach cancer Esophagus cancer Cancer Cancer of bowel Sister Kidney stone Social History Smoking Status: Never smoker Second Hand Exposure: Yes; Do You Dip or Chew Tobacco: No; Hx Alcohol Use: No Hx Substance Use: No Preferred Language: Welsh Communication Ability: Effective Communication Ability Comment: Does not read or write well per pt Visual Impairment: Limited Hearing Ability: Hard of Hearing Departmental Buyer Required: No Beliefs That Will Affect Care: None marital status: Current Living Situation: Family Current Living Situation Comment: daughter lives w/ patient current occupational status: retired current occupation: retired age 64 from [employer] How many Children do You have: 1 How many Children do You have Comment: Daughter takes care of patient, grandchildren also assist with care as needed. Other Information That Helps Us Care for You: No Feels Safe at Home: Yes Safety Concerns: Feels Safe At This Time Diet: regular during the past year weight has: decreased > 10 lbs Assistive Devices: Glasses, Hospital Bed and Wheelchair Review of Systems Review of Systems: All systems reviewed & are unremarkable except as noted in HPI & below Physical Exam Constitutional: no acute distress Respiratory: no respiratory distress and no labored breathing Gastrointestinal (Abdomen): Percussion/Palpation: abdomen soft; abdomen nontender Musculoskeletal: Head/Neck/Chest: normocephalic Neurologic: moves all extremities and awake Psychiatric: Orientation: alert and oriented x 3 Results & Data Vital Signs (Past 12 Hours) Vital Signs Temp Pulse Pulse Pulse Resp BP BP 10/31/23 08:14 82 10/31/23 07:29 36.7 C 74 18 135/70 10/31/23 07:27 10/31/23 02:41 85 10/31/23 02:16 10/31/23 01:53 36.5 C 81 20 103/57 L 10/31/23 00:30 178/67 H 10/31/23 00:15 81 21 10/31/23 00:15 143/68 H 10/31/23 00:15 143/68 H 10/31/23 00:15 143/68 H 10/31/23 00:00 74 18 10/30/23 23:30 130/44 L 10/30/23 23:30 130/44 L 10/30/23 23:30 130/44 L 10/30/23 23:21 78 27 H 10/30/23 23:16 76 10/30/23 23:15 86 20 10/30/23 23:15 146/75 H 10/30/23 23:15 146/75 H 10/30/23 23:15 146/75 H 10/30/23 23:00 85 18 10/30/23 23:00 130/57 L 10/30/23 23:00 130/57 L 10/30/23 23:00 130/57 L 10/30/23 22:00 83 18 144/76 H Pulse Ox O2 Del Method 10/31/23 08:14 10/31/23 07:29 96 Room Air 10/31/23 07:27 Room Air 10/31/23 02:41 10/31/23 02:16 Room Air 10/31/23 01:53 97 Room Air 10/31/23 00:30 10/31/23 00:15 99 10/31/23 00:15 10/31/23 00:15 10/31/23 00:15 10/31/23 00:00 97 10/30/23 23:30 10/30/23 23:30 10/30/23 23:30 10/30/23 23:21 96 10/30/23 23:16 10/30/23 23:15 96 10/30/23 23:15 10/30/23 23:15 10/30/23 23:15 10/30/23 23:00 95 10/30/23 23:00 10/30/23 23:00 10/30/23 23:00 10/30/23 22:00 96 Room Air PG Care Time/CCT Total # of Minutes Spent Total Time Spent with Patient: Total time spent is greater than 50% in coordination of care (as documented) at patient's floor/unit and/or counseling patient: Coding Level of Care Code 44811 INT INP/OBS CARE 2/55MIN Diagnoses Hematuria R31.9 UTI (urinary tract infection) N39.0
--- NOTE | 2023-10-31 11:09 | Hospitalist Progress Note ---
Date of Service October 31, 2023 Assessment & Plan (1) Hematuria: (2) Orthostatic hypotension: (3) Hyperlipidemia: (4) Gross hematuria: (5) Cystitis: Plan Patient is a 73 yo M w/ a PMHx of CVA, end-stage renal disease/CKD w/ failed fistula, Hx of osteomyelitis of r. and l. calcaneus, peripheral artery disease, HLD, carotid and vertebral artery disease, T2DM, vit D deficiency presents w/ concerns for recurrent blood in urine of 2 days along w/ mild dysuria. 1) Hematuria/Cystitis - recurrent blood in urine after a round of IV and PO antibiotics, last course finished 2 days ago - CT-AP as above, importantly notes --> Thickening of the bladder wall is concerning for cystitis. Significant stool in the rectal vault is concerning for impaction. - Hgb, 11.3; Pts, 189; procalcitonin, 0.58 - hold Eliquis, hold Plavix - continue cefepime, 2000 mg, IV, q8hrs - UA pending, UCx pending and blood Cx pending also - consult urology, NPO at midnight for possibility of cystoscopy tomorrow - previous Ur Cx in August 2023/June 2023 yielded king-sensitive Klebsiella/nitrofurantoin-sensitive Enterococcus faecium, respectively 2) Hypotension/orthostatic hypotension - BP 66/43 on admission, given 500 mL NSS --> repeat BP 106/85 - pt notes chronic orthostatic hypotension for which he takes midodrine, 5 mg, PO, TID and fludrocortisone, 0.1 mg, PO, daily - restart the midodrine 3) CKD/ESRD on dialysis (,,) - continue Sevelamer - consult nephrology if patient will be on Friday for inpatient dialysis - restart the Sevelamer - continue the ProRenal vitamin, folic acid, Liquacel 4) Hyperlipidemia - continue atorvastatin, 10 mg, PO, QHS 5) T2DM - not on any oral home meds for T2DM, Glu, 150 on admission - SSI: Range 110-150, CF 50, CR 25 6) Pressure ulcers of heel/Hx of osteomyelitis of heels - continue to use foam boots and pressure ulcer silicone foam dressing as needed Code status: Full code Disposition: Med-Surg w/ Telemetry DVT Prophylaxis: SCD's (to the knee) DELORISI: NPO at midnight Admission and Anticipated Discharge Date Admission Date: October 30, 2023 Results & Data Results & Data Vital Signs (Past 12 Hours) Vital Signs Temp Pulse Pulse Resp BP BP Pulse Ox 10/31/23 08:14 82 10/31/23 07:29 36.7 C 74 18 135/70 96 10/31/23 07:27 10/31/23 02:41 85 10/31/23 02:16 10/31/23 01:53 36.5 C 81 20 103/57 L 97 10/31/23 00:30 178/67 H 10/31/23 00:15 81 21 99 10/31/23 00:15 143/68 H 10/31/23 00:15 143/68 H 10/31/23 00:15 143/68 H 10/31/23 00:00 74 18 97 10/30/23 23:30 130/44 L 10/30/23 23:30 130/44 L 10/30/23 23:30 130/44 L 10/30/23 23:21 78 27 H 96 10/30/23 23:16 76 10/30/23 23:15 86 20 96 10/30/23 23:15 146/75 H 10/30/23 23:15 146/75 H 10/30/23 23:15 146/75 H O2 Del Method 10/31/23 08:14 10/31/23 07:29 Room Air 10/31/23 07:27 Room Air 10/31/23 02:41 10/31/23 02:16 Room Air 10/31/23 01:53 Room Air 10/31/23 00:30 10/31/23 00:15 10/31/23 00:15 10/31/23 00:15 10/31/23 00:15 10/31/23 00:00 10/30/23 23:30 10/30/23 23:30 10/30/23 23:30 10/30/23 23:21 10/30/23 23:16 10/30/23 23:15 10/30/23 23:15 10/30/23 23:15 10/30/23 23:15
[2023-10-31 12:12] LABS: Hematocrit (blood only) 35.1 % (42.0-52.0)
--- NOTE | 2023-10-31 12:25 | Discharge Summary ---
Date of Service October 31, 2023 Admission HPI Per Admitting Provider Patient is a 73 yo M w/ a PMHx of CVA, end-stage renal disease/CKD w/ failed fistula, Hx of osteomyelitis of r. and l. calcaneus, peripheral artery disease, HLD, HTN, carotid and vertebral artery disease, T2DM, vit D deficiency presents w/ concerns for recurrent blood in urine of 2 days along w/ mild dysuria. Pt first had cloudy, slightly bloody urine about 2 wks ago while in Rehab at [facility] and that is when he got his first round of antibiotics for his UTI. Now after a round of IV antibiotics and PO antibiotics patient has recurrent hematuria and mild dysuria. Patient uncertain of the antibiotics that he was on but daughter can be called for any collateral confirmation. Besides the hematuria, mild dysuria patient not having any other complaints. Admission Exam Per Admitting Provider Constitutional: WD/WN, vitals as above Respiratory: normal respiratory effort, lungs clear to auscultation Cardiovascular: RRR, no murmur, no edema Extremities: normal capillary refill; no pedal edema Gastrointestinal (Abdomen): normal bowel sounds, soft, nontender, no hepatosplenomegaly Percussion/Palpation: + abdomen tender (suprapubic tenderness) Psychiatric: A+Ox3, euthymic affect Genitourinary: no CVA tenderness Principal Diagnosis Hematuria Discharge Exam Constitutional WD/WN, vitals as above Respiratory normal respiratory effort, lungs clear to auscultation Cardiovascular RRR, no murmur, no edema Psychiatric A+Ox3, euthymic affect Discharge Data Allergies Allergy/AdvReac Type Severity Reaction Status Date / Time amlodipine AdvReac Severe FLU Verified 05/23/23 08:04 SYMPTONS Consultations 10/30/23 21:45 ED Decision to Admit Stat 10/31/23 06:47 Consult Urology Routine Ordered Studies Chest X-Ray 10/30/23 18:24 XR chest 1V portable CLINICAL HISTORY: Sepsis TECHNIQUE: Single frontal radiograph of the chest was obtained. Comparison: Comparison is made to chest radiograph 03/15/2023 FINDINGS: No lines and tubes are seen. Cardiomegaly is noted. The aortic arch is calcified. The lungs are clear. No evidence of pleural effusion or pneumothorax. IMPRESSION: No acute abnormalities and in particular no radiographic evidence of pneumonia. ACT 112: Negative or not required by law. Electronically signed by: Danny Blank M.D. 10/30/2023 6:58 PM Abdomen/Pelvis CT 10/30/23 18:59 Exam(s): CT ABDOMEN + PELVIS Without Contrast EXAM: CT Abdomen and Pelvis Without Intravenous Contrast CLINICAL HISTORY: Recurrent there is a tract infections and hematuria TECHNIQUE: Axial computed tomography images of the abdomen and pelvis without intravenous contrast. CTDI is 25.86 mGy and DLP is 1209.85 mGy-cm. Automated exposure control was utilized for the study. A dose lowering technique was utilized adhering to the principles of ALARA. COMPARISON: CT abdomen and pelvis 2021 FINDINGS: Lung bases: Unremarkable. No mass. No consolidation. Pleural space: There is a small left pleural effusion. Heart: Cardiomegaly. ABDOMEN: Liver: Unremarkable. Gallbladder and bile ducts: Unremarkable. No calcified stones. No ductal dilation. Pancreas: Unremarkable. No ductal dilation. Spleen: Unremarkable. No splenomegaly. Adrenals: Unremarkable. No mass. Kidneys and ureters: Bilateral medullary nephrocalcinosis. Simple appearing bilateral renal cysts are present, no follow up is needed. The kidneys are otherwise unremarkable. No hydronephrosis. Stomach and bowel: Significant stool in the rectal vault is concerning for impaction. Diverticulosis. No obstruction. No mucosal thickening. PELVIS: Appendix: Normal appendix. Bladder: Thickening of the bladder wall is concerning for cystitis. No stones. Reproductive: Unremarkable as visualized. ABDOMEN and PELVIS: Intraperitoneal space: Unremarkable. No free air. No significant fluid collection. Bones/joints: There are degenerative changes of the spine. No acute fracture. No dislocation. Soft tissues: Small bilateral fat-containing inguinal hernias. Vasculature: Severe atherosclerosis. No abdominal aortic aneurysm. Lymph nodes: Unremarkable. No enlarged lymph nodes. IMPRESSION: 1. Bilateral mild medullary nephrocalcinosis. No hydronephrosis. 2. Thickening of the bladder wall is concerning for cystitis. 3. Significant stool in the rectal vault is concerning for impaction. 4. Diverticulosis. 5. Cardiomegaly. 6. There is a small left pleural effusion. Electronically signed by: Radha Hedrick MD 10/30/23 21:27 PM Hospital Course (1) Hematuria: (2) Orthostatic hypotension: (3) Hyperlipidemia: (4) Gross hematuria: (5) Cystitis: Plan Patient is a 73 yo M w/ a PMHx of CVA, end-stage renal disease/CKD w/ failed fistula, Hx of osteomyelitis of r. and l. calcaneus, peripheral artery disease, HLD, carotid and vertebral artery disease, T2DM, vit D deficiency - presented w/ concerns for recurrent blood in urine x2 days along w/ mild dysuria. Hematuria/Cystitis - recurrent blood in urine after 2 courses of antibiotics - CT-AP significant for thickening of the bladder wall is concerning for cystitis - Hgb 11.3 on admission, recheck prior to discharge 11 - stable from a blood loss perspective - UA consistent with infection, urine and blood cultures pending at time of discharge, continue to follow culture and sensitivities as outpatient - pt discharged with Rx for Cefdinir x 7 days. Of note, patient expressed strong desire to be discharged. Given minimal symptoms, absence of WBC count elevation, lack of fever, hemodynamic stability, feel it is not unreasonable to be discharged with close follow up. He understands that there is a possibility that cultures may demonstrate a need for IV antibiotics, in which case he will need to come back to the hospital. He understands and is agreeable to this. - Urology consulted, did not see need for acute intervention while inpatient but will set up outpatient follow up for hematuria work up/cystoscopy. Pressure ulcers/Hx of osteomyelitis of heels - Evaluated by wound care - discharge recs: to sacrum, apply barrier cream as needed. Right heel, clean with saline and pat dry, apply optifoam for protection. Left heel, clean with saline and pat dry. Apply Aquacel Ag and secure with optifoam. Change daily or as needed for drainage. L 2nd/3rd toes, clean with saline and paint toes with betadine. CKD/ESRD on dialysis (T,Th,S) Hyperlipidemia - continue atorvastatin, 10 mg, PO, QHS T2DM - not on any oral home meds for T2DM, Glu, 150 on admission - SSI: Range 110-150, CF 50, CR 25 Total Time Total Time Spent Total Time Spent (In Minutes): see attending attestation Discharge Plan Discharge Items Patient Disposition: Home - Self-Care Reason For Visit: HEMATURIA Discharge Diagnosis: hematuria Activity: Resume your previous activity Non-emergency contact: Primary Care Provider and Latexer Call non-emergency contact if: you have any medication questions, your symptoms worsen and you have a fever Follow-up/Referrals: Tamiko Donovan, DO [Primary Care Provider] - Diet: Dialysis Renal Addtl Attending Provider Instructions: You were admitted to the hospital due to blood in your urine. There are multiple potential causes for this, one of which is infection. Although you seem to have minimal symptoms (ie. no burning with urination, normal white blood cell count, no fevers), your urine sample appears consistent with infection. For this re ason, we have sent a prescription to your pharmacy for an antibiotic called Cefdinir. Please take 1 tablet once daily for 7 days. Your outpatient provider can follow up on the urine culture and sensitivities, and amend antibiotics as needed. There is the possibility that the urine culture may come back positive for a bacteria that requires treatment with IV antibiotics. In this case, you will need to come back to the hospital for treatment. You were also seen by urology during your hospital stay - they did not feel the need for inpatient evaluation, but will reach out to schedule you for outpatient follow up. Please seek care if you notice any of the following symptoms: fevers, chills, worsening urinary symptoms such as burning with urination, feeling the need to urinate more frequently. Pending Studies at Discharge: Yes Studies:: Follow up on urine culture and sensitivities Stand-Alone Forms: [facility] Surgical, Smoking Cessation Medications and DC Order Prescriptions: New cefdinir 300 mg capsule 300 mg PO DAILY 7 Days Qty: 7 0RF Continued folic acid 1 mg tablet 1 mg PO BID Qty: 60 3RF Rx Instructions: NEEDS TONIGHTS DOSE atorvastatin 10 mg tablet 10 mg PO HS Qty: 30 2RF clopidogrel 75 mg tablet 75 mg PO DAILY Qty: 30 2RF Liquacel 16-100 gram-kcal/30 mL liquid 30 ml PO BID Qty: 1920 2RF Eliquis 5 mg tablet 5 mg PO BID Qty: 60 11RF ProRenal 8 mg iron-800 mcg-1,000 unit tablet 1 tab PO DAILY Rx Instructions: NEEDS TONIGHT fludrocortisone 0.1 mg tablet 0.1 mg PO QPM Rx Instructions: NEEDS TONIGHT Admission Data Admit Date/Time: 10/30/23 23:46 Attending Provider: Sylvester Bravo Admit Provider: Isabel Cotton Primary Care Provider: Tamiko Donovan Other Providers: Isabel Cotton; Alex Johnson; Kevin Marsh; Karthik Nguyen; Belle Rowley; Darren Matos; Eloisa Estrada; Marcy Candelaria; Jamie Aguirre; Stephanie Roe; Terrence Pinto; Xochitl Carr; Aron Ugarte Supervising Physician Co-Signing Physician Notes Patient seen and examined, chart reviewed, case discussed with Dr. Lauren and I agree with the assessment and plan as above except as otherwise noted Labs and images reviewed Rey is seen at the bedside. He reports he feels well other than having blood in his urine, and would like to go home. He reports he has not had blood in his urine to this extent before, has been frankly bloody for about 2 days. Was reviewed by urology, no acute interventions are recommended and patient is recommended to have follow-up cystoscopy as outpatient. CKD/ESRD on dialysis are stable. Endorses a little tingling with urination in addition to his hematuria, denies increased frequency or pain. Denies flank pain. UA is infected appearing and without epithelial cells, patient has minimal symptoms from this. Given potential for infection/infected appearing UA, risk of translocation with hematuria recommend covering with antibiotics as noted above. Patient was recommended to remain inpatient pending his urine culture results, and is aware that with his recent enterococcal faecium cultures in June if this again grows out of his urine he would require IV antibiotic treatment as this is resistant to all oral options. Pt reports he is unwilling to stay in the hospital for another night, and wishes to leave. He reports he has a lift and PT at home, and is at his normal strength, and understands the risk of a resistant/untreated UTI but is unwilling to stay another night. he is not septic or toxic at time of assessment. On shared decision making will dc with a script for cefdinir BID renally adjusted, and pt agrees to return for IV abx tx if his UCx speciates for entercoccus. He is aware he will need to return via the emergency department, and reports 'Thats fine, but I am going home today.' Additionally UA nitrtites was positive, which is inconsistent with enterococcal infection. Time spend day of discharge including reassessment of pt ~65 minutes including documentation, lab review, counseling, and pt examination.
--- NOTE | 2023-10-31 13:25 | Communication Note ---
Date of Service: October 31, 2023 By CMS guidelines, a determination that the admission or continued stay is not medically necessary has been made by a member of the UR committee and a phy sician for this hospital stay, therefore a Code 44 will be completed and the Inpatient admission will be changed to outpatient. Rickey Peters MD member, Utilization Review Committee
--- NOTE | 2023-10-31 15:33 | Hospitalist Progress Note ---
Date of Service October 31, 2023 Assessment & Plan (1) Hematuria: (2) Orthostatic hypotension: (3) Hyperlipidemia: (4) Gross hematuria: (5) Cystitis: Plan Patient is a 73 yo M w/ a PMHx of CVA, end-stage renal disease/CKD w/ failed fistula, Hx of osteomyelitis of r. and l. calcaneus, peripheral artery disease, HLD, carotid and vertebral artery disease, T2DM, vit D deficiency - presented w/ concerns for recurrent blood in urine x2 days along w/ mild dysuria. Hematuria/Cystitis - recurrent blood in urine after 2 courses of antibiotics - CT-AP significant for thickening of the bladder wall, concerning for cystitis - hold Eliquis, hold Plavix - Hgb 11.3 on admission, recheck 11 - stable from a blood loss perspective - UA consistent with infection, urine and blood cultures pending, continue Cefepime 1g q24h in the interim - Urology consulted, deferred acute intervention, will follow up with patient outpatient Pressure ulcers/Hx of osteomyelitis of heels - Evaluated by wound care - discharge recs: to sacrum, apply barrier cream as needed. Right heel, clean with saline and pat dry, apply optifoam for protection. Left heel, clean with saline and pat dry. Apply Aquacel Ag and secure with optifoam. Change daily or as needed for drainage. L 2nd/3rd toes, clean with saline and paint toes with betadine. CKD/ESRD on dialysis (T,Th,S) - Consult Nephrology for dialysis management Hyperlipidemia - continue atorvastatin, 10 mg, PO, QHS T2DM - not on any oral home meds for T2DM, Glu, 150 on admission - SSI: Range 110-150, CF 50, CR 25 DVT Prophylaxis: SCD FEN/GI: dialysis renal Admission and Anticipated Discharge Date Admission Date: October 30, 2023 Supervising Physician Co-Signing Physician Notes Patient seen and examined, chart reviewed, case discussed with Dr. Lauren and I agree with the assessment and plan as above except as otherwise noted Labs and images reviewed Rey is seen at the bedside. He reports he feels well other than having blood in his urine, and would like to go home. He reports he has not had blood in his urine to this extent before, has been frankly bloody for about 2 days. Was reviewed by urology, no acute interventions are recommended and patient is recommended to have follow-up cystoscopy as outpatient. CKD/ESRD on dialysis are stable. Endorses a little tingling with urination in addition to his hematuria, denies increased frequency or pain. Denies flank pain. UA is infected appearing and without epithelial cells, patient has minimal symptoms from this. Given potential for infection/infected appearing UA, risk of translocation with hematuria recommend covering with antibiotics as noted above. Patient was recommended to remain inpatient pending his urine culture results, and is aware that with his recent enterococcal faecium cultures in June if this again grows out of his urine he would require IV antibiotic treatment as this is resistant to all oral options. Pt reports he is unwilling to stay in the hospital for another night, and wishes to leave. He reports he has a lift and PT at home, and is at his normal strength, and understands the risk of a resistant/untreated UTI but is unwilling to stay another night. he is not septic or toxic at time of assessment. On shared decision making was willing to dc with a script for cefdinir BID renally adjusted, and pt agrees to return for IV abx tx if his UCx speciates for entercoccus. He is aware he will need to return via the emergency department, and reports 'That's fine, but I am going home today.' Additionally UA nitrites was positive, which is inconsistent with enterococcal infection. Subsequent to this case was reviewed with pts and daughter. Long discussion with the patient and his daughter, given culture uncertainty patient is willing to await culture speciation prior to final discharge. Anticipate discharge 10/31. Agree with above. Subsequent to this discussion Subjective Patient states that he was recently able to produce a urine sample, describes it as being grossly bloody. Denies associated dysuria, urinary frequency, fevers/ch ills. Pt on dialysis T//S, states that he still produces urine, normally small volume twice daily. Review of Systems Review of Systems: as per HPI Physical Exam Constitutional: WD/WN, vitals as above Respiratory: normal respiratory effort, lungs clear to auscultation Cardiovascular: RRR, no murmur, no edema Psychiatric: A+Ox3, euthymic affect Results & Data Results & Data Vital Signs (Past 12 Hours) Vital Signs Temp Pulse Pulse Resp BP Pulse Ox O2 Del Method 10/31/23 15:19 37.2 C 89 18 164/84 H 95 Room Air 10/31/23 14:18 81 10/31/23 11:12 36.8 C 88 18 153/86 H 95 Room Air 10/31/23 08:14 82 10/31/23 07:29 36.7 C 74 18 135/70 96 Room Air 10/31/23 07:27 Room Air Resident Activity Tracking Resident Involvement: Resident Care Provided Care Provided: Adult Hospital Medicine
--- NOTE | 2023-10-31 16:27 | Billing Data ---
Date of Service October 31, 2023 Coding Level of Care Code 57064 SUB INP/OBS CARE
--- NOTE | 2023-10-31 16:42 | Nephrology Consultation ---
Date of Consultation October 31, 2023 Assessment & Plan (1) End stage renal disease: ESRD due to DKD. Maintained on IHD at [facility]. Outpatient Rx: TTS 3.5hours 180-optiflux Qb450 Qd800, 3K 137Na 2.5Ca; EDW 74.5 kg. L forearm AVF has been functioning well for treatments. Clearance has been at goal. Preliminary orders for treatment tomorrow have been entered into the EHR. Midodrine 5 mg to be given at start of treatment. Renal diet. Check metabolic profile in the AM. Check standing scale weight in the AM. (2) Hematuria: Remains on antibiotic therapy for cystitis. Cultures pending. Urology consultation reviewed. No additional inpatient evaluation planned at this time. (3) Anemia: Chronic, stable. Hgb >11. No LA therapy required at this time. (4) Orthostatic hypotension: Maintained on midodrine and fludrocortisone. History of Present Illness Reason for Consultation: Dialysis // Requesting Physician: Sylvester Bravo MD Attending Physician: Sylvester Bravo MD History of Present Illness Rey Blue is a 73 year-old male with ESKD due to DKD. He dialyzes TTS at [facility] (3.5hr, F-180NR, Qb450/Qd800, 3K Ca2.5 Na 137, EDW 94.5 kg, LUE AVF). Medical history is significant for AODM, HTN, mechanical fall resulting in fracture of L radius and ulna s/p surgical repair at [facility] 10/18, PVD, COVID + 02/18, atrial fibrillation (Apixaban), BPH (Tamsulosin stopped due to orthostasis), CVA 11/20 (L frontal lobe), history of emphysematous pyelonephritis, medullary nephrocalcinosis, and chronic hypotension. Rey presented to [facility] yesterday for evaluation of gross hematuria. Urine is starting to clear. CT demonstrated bladder thickening suggestive of cystitis. Cultures are pending. Urology is not planning additional intervention at this time. Nephrology consultation has been requested to provide HD during patient's hospital stay. Rey completed his last HD treatment on October 29 without complications. He has been tolerating dialysis well. Records from dialysis were reviewed today. IDWG has been minimal. HD has been complicated by chronic hypotension and intradialytic hypotension managed with midodrine and fludrocortisone. He left dialysis at 75 kg on s/p net UF 1 L. Allergies Allergy/AdvReac Type Severity Reaction Status Date / Time amlodipine AdvReac Severe FLU Verified 05/23/23 08:04 [facility] Home Medications Medication Instructions Recorded Confirmed Type vit B complx, C-iron 8 mg-folic 1 tab PO DAILY 08/17/20 10/30/23 History acid 800 mcg-D3 1,000 unit-zinc tablet (ProRenal) fludrocortisone 0.1 mg tablet 0.1 mg PO QPM 03/15/23 10/30/23 History atorvastatin 10 mg tablet 10 mg PO HS #30 tabs 04/04/23 10/30/23 Rx clopidogrel 75 mg tablet 75 mg PO DAILY #30 tabs 04/04/23 10/30/23 Rx folic acid 1 mg tablet 1 mg PO BID #60 tabs 04/04/23 10/30/23 Rx amino acids-protein hydrolysate 16 30 ml PO BID #1,920 mL 07/23/23 10/30/23 Rx gram-100 kcal/30 mL oral liquid (Liquacel) apixaban 5 mg tablet (Eliquis) 5 mg PO BID #60 tabs 09/16/23 10/30/23 Rx cefdinir 300 mg capsule 300 mg PO DAILY 7 days #7 caps 10/31/23 Rx Patient History Medical History CKD (chronic kidney disease) Fistula left arm Diabetes type 2, controlled ESRD (end stage renal disease) on dialysis Hypertension Surgical History S/P carotid endarterectomy History of tooth extraction History of surgery on arm Family History Mother , age 65 of cancer -uncertain type Cancer Father , in his 50s of cancer Stomach cancer Esophagus cancer Cancer Cancer of bowel Sister Kidney stone Social History Smoking Status: Never smoker Second Hand Exposure: Yes; Do You Dip or Chew Tobacco: No; Hx Alcohol Use: No Hx Substance Use: No Preferred Language: Pakistani Communication Ability: Effective Communication Ability Comment: Does not read or write well per pt Visual Impairment: Limited Hearing Ability: Hard of Hearing Customer Sales Specialist Required: No Beliefs That Will Affect Care: None marital status: Current Living Situation: Family Current Living Situation Comment: daughter lives w/ patient current occupational status: retired current occupation: retired age 64 from [employer] How many Children do You have: 1 How many Children do You have Comment: Daughter takes care of patient, grandchildren also assist with care as needed. Feels Safe at Home: Yes Diet: regular during the past year weight has: decreased > 10 lbs Assistive Devices: Wheelchair Review of Systems Review of Systems: All systems reviewed & are unremarkable except as noted in HPI & below Constitutional: no fever and no chills Physical Exam Constitutional: + thin, + physical limitations and + fra il appearing; no acute distress Eyes: + anicteric sclerae; no corneal abnormal ity ENMT: Mouth: no oral mucosal abnormality and oral mucous membranes not dry Neck: normal visual inspection and trachea midline Respiratory: normal respiratory effort Auscultation: lungs clear to auscultation bilaterally Cardiovascular: Rate/Rhythm: regular rate Heart Sounds: normal S1, normal S2 and + murmur Extremities: + AV fistula; no edema Musculoskeletal: Extremities: no cyanosis and no clubbing Skin: normal turgor; no lesions Neurologic: Motor/Sensory: no tremor and no asterixis Psychiatric: Orientation: alert and oriented x 3 Results & Data Vital Signs (Past 12 Hours) Vital Signs Temp Pulse Pulse Resp BP Pulse Ox O2 Del Method 10/31/23 15:19 37.2 C 89 18 164/84 H 95 Room Air 10/31/23 14:18 81 10/31/23 11:12 36.8 C 88 18 153/86 H 95 Room Air 10/31/23 08:14 82 10/31/23 07:29 36.7 C 74 18 135/70 96 Room Air 10/31/23 07:27 Room Air Laboratory Results Laboratory Results - last 24 hr 10/30/23 10/30/23 10/31/23 18:30 20:26 08:37 WBC 7.09 RBC 3.87 L Hgb 11.3 L Hct 36.0 L MCV 93.0 MCH 29.2 MCHC 31.4 L RDW Std Deviation 49.5 H RDW Coeff of Mukul 14.6 H Plt Count 189 MPV 10.3 Immature Gran % (Auto) 0.3 Neut % (Auto) 66.6 Lymph % (Auto) 21.2 Bledsoe % (Auto) 10.6 Eos % (Auto) 0.7 Baso % (Auto) 0.6 Neut # (Auto) 4.73 Lymph # (Auto) 1.50 Bledsoe # (Auto) 0.75 H Eos # (Auto) 0.05 Baso # (Auto) 0.04 Immature Gran # (Auto) 0.02 PT 11.5 INR 1.1 APTT 28 PTT Ratio 1.0 Sodium 142 Potassium 3.8 Chloride 101 Carbon Dioxide 36 H Anion Gap 5 BUN 12 Creatinine 2.34 H Est Cr Clr Drug Dosing Not Reportable Est GFR ( Amer) 30.8 Est GFR (Non-Af Amer) 26.6 BUN/Creatinine Ratio 5.1 L Glucose 150 H POC Glucose 104 H Lactate 2.5 H* 1.7 Calcium 8.6 Magnesium 1.9 Total Bilirubin 0.6 Direct Bilirubin 0.1 AST 19 ALT 9 Alkaline Phosphatase 89 Troponin I High Sens 25.9 H 26.8 H Total Protein 5.7 L Albumin 3.1 L Procalcitonin 0.58 H Urine Color Urine Appearance Urine pH Ur Specific [place] Urine Protein Urine Glucose (UA) Urine Ketones Urine Blood Urine Nitrite Urine Bilirubin Urine Urobilinogen Ur Leukocyte Esterase Urine RBC Urine WBC Ur Epithelial Cells Urine Bacteria Nasal Screen MRSA (PCR) 10/31/23 10/31/23 10/31/23 11:55 12:27 16:57 WBC RBC Hgb 11.0 L Hct 35.1 L MCV MCH MCHC RDW Std Deviation RDW Coeff of Mukul Plt Count MPV Immature Gran % (Auto) Neut % (Auto) Lymph % (Auto) Bledsoe % (Auto) Eos % (Auto) Baso % (Auto) Neut # (Auto) Lymph # (Auto) Bledsoe # (Auto) Eos # (Auto) Baso # (Auto) Immature Gran # (Auto) PT INR APTT PTT Ratio Sodium Potassium Chloride Carbon Dioxide Anion Gap BUN Creatinine Est Cr Clr Drug Dosing Est GFR ( Amer) Est GFR (Non-Af Amer) BUN/Creatinine Ratio Glucose POC Glucose 98 93 Lactate Calcium Magnesium Total Bilirubin Direct Bilirubin AST ALT Alkaline Phosphatase Troponin I High Sens Total Protein Albumin Procalcitonin Urine Color Urine Appearance Urine pH Ur Specific [place] Urine Protein Urine Glucose (UA) Urine Ketones Urine Blood Urine Nitrite Urine Bilirubin Urine Urobilinogen Ur Leukocyte Esterase Urine RBC Urine WBC Ur Epithelial Cells Urine Bacteria Nasal Screen MRSA (PCR) 10/31/23 Unknown WBC RBC Hgb Hct MCV MCH MCHC RDW Std Deviation RDW Coeff of Mukul Plt Count MPV Immature Gran % (Auto) Neut % (Auto) Lymph % (Auto) [place]led[place] % (Auto) Eos % (Auto) Baso % (Auto) Neut # (Auto) Lymph # (Auto) Bledsoe # (Auto) Eos # (Auto) Baso # (Auto) Immature Gran # (Auto) PT INR APTT PTT Ratio Sodium Potassium Chloride Carbon Dioxide Anion Gap BUN Creatinine Est Cr Clr Drug Dosing Est GFR ( Amer) Est GFR (Non-Af Amer) BUN/Creatinine Ratio Glucose POC Glucose Lactate Calcium Magnesium Total Bilirubin Direct Bilirubin AST ALT Alkaline Phosphatase Troponin I High Sens Total Protein Albumin Procalcitonin Urine Color Red Urine Appearance Turbid A Urine pH 8.5 H Ur Specific [place] 1.020 Urine Protein 3+ H Urine Glucose (UA) Negative Urine Ketones Trace H Urine Blood 3+ H Urine Nitrite Positive A Urine Bilirubin 1+ H Urine Urobilinogen Negative Ur Leukocyte Esterase 3+ H Urine RBC >20 H Urine WBC >50 H Ur Epithelial Cells 0-2 Urine Bacteria 2+ H Nasal Screen MRSA (PCR) Negative Diagnostic Findings CT Abdomen and Pelvis Without Intravenous Contrast COMPARISON: CT abdomen and pelvis 2021 FINDINGS: Lung bases: Unremarkable. No mass. No consolidation. Pleural space: There is a small left pleural effusion. Heart: Cardiomegaly. ABDOMEN: Liver: Unremarkable. Gallbladder and bile ducts: Unremarkable. No calcified stones. No ductal dilation. Pancreas: Unremarkable. No ductal dilation. Spleen: Unremarkable. No splenomegaly. Adrenals: Unremarkable. No mass. Kidneys and ureters: Bilateral medullary nephrocalcinosis. Simple appearing bilateral renal cysts are present, no follow up is needed. The kidneys are otherwise unremarkable. No hydronephrosis. Stomach and bowel: Significant stool in the rectal vault is concerning for impaction. Diverticulosis. No obstruction. No mucosal thickening. PELVIS: Appendix: Normal appendix. Bladder: Thickening of the bladder wall is concerning for cystitis. No stones. Reproductive: Unremarkable as visualized. ABDOMEN and PELVIS: Intraperitoneal space: Unremarkable. No free air. No significant fluid collection. Bones/joints: There are degenerative changes of the spine. No acute fracture. No dislocation. Soft tissues: Small bilateral fat-containing inguinal hernias. Vasculature: Severe atherosclerosis. No abdominal aortic aneurysm. Lymph nodes: Unremarkable. No enlarged lymph nodes. IMPRESSION: 1. Bilateral mild medullary nephrocalcinosis. No hydronephrosis. 2. Thickening of the bladder wall is concerning for cystitis. 3. Significant stool in the rectal vault is concerning for impaction. 4. Diverticulosis. 5. Cardiomegaly. 6. There is a small left pleural effusion. PG Care Time/CCT Total # of Minutes Spent Total Time Spent with Patient: Total time spent is greater than 50% in coordination of care (as documented) at patient's floor/unit and/or counseling patient: Coding Level of Care Code 75166 IN/OBS CONSULT LVL 4,60M Diagnoses End stage renal disease N18.6 Hematuria R31.9 Anemia D64.9 Orthostatic hypotension I95.1
[2023-10-31] MEDS: CEFEPIME 2,000 MG in SYRINGE 0 ML IV ONE (18:09)
[2023-10-31] MEDS: FLUDROCORTISONE ACETATE 0.1 MG TAB PO SCH (20:42)
[2023-10-31] MEDS: ATORVASTATIN 10 MG TAB PO SCH (20:42)
--- NOTE | 2023-10-31 22:44 | Electrocardiogram Report ---
Test Reason : Blood Pressure : / mmHG Vent. Rate : 086 BPM Atrial Rate : 000 BPM P-R Int : 000 ms QRS Dur : 090 ms QT Int : 424 ms P-R-T Axes : 000 030 -37 degrees QTc Int : 507 ms Poor data quality, interpretation may be adversely affected Atrial fibrillation Nonspecific ST and T wave abnormality Abnormal ECG When compared with ECG of 18-MAR-2023 15:56, No significant change Confirmed by Manny Amato ([id number]) on 10/31/2023 10:44:10 PM Referred By: Tamiko Donovan Confirmed By:Manny Amato
[2023-11-01] MEDS: CEFEPIME 1,000 MG in SYRINGE 0 ML IV SCH (05:41)
[2023-11-01 06:22] LABS: Hematocrit (blood only) 31.8 % (42.0-52.0); Hemoglobin 9.9 g/dl (14.0-18.0); Mean Corpuscular Hemoglobin 29.2 pg (25.0-34.0); Mean Corpuscular Hgb Conc 31.1 g/dL (32.0-36.0); Mean Corpuscular Volume 93.8 fL (80.0-100.0); Mean Platelet Volume 10.4 fL (9.4-12.4); Platelet Count 148 K/uL (130-400); RDW Coefficient of Variation 14.4 % (11.5-14.5); RDW Standard Deviation 49.9 fL (36.4-46.3); Red Blood Count 3.39 M/uL (4.70-6.10); White Blood Count 5.92 K/ul (4.8-10.8)
--- NOTE | 2023-11-01 06:40 | History & Physical Report ---
Date of Service November 01, 2023 Assessment & Plan (1) Hematuria: (2) Orthostatic hypotension: (3) Hyperlipidemia: (4) Gross hematuria: (5) Cystitis: Plan Patient is a 73 yo M w/ a PMHx of CVA, end-stage renal disease/CKD w/ failed fistula, Hx of osteomyelitis of r. and l. calcaneus, peripheral artery disease, HLD, carotid and vertebral artery disease, T2DM, vit D deficiency - presented w/ concerns for recurrent blood in urine x2 days along w/ mild dysuria. Hematuria/Cystitis - recurrent blood in urine after 2 courses of antibiotics - CT-AP significant for thickening of the bladder wall, concerning for cystitis - hold Eliquis, hold Plavix - Hgb 11.3 on admission, recheck 11 - stable from a blood loss perspective - UA consistent with infection, urine and blood cultures pending, continue Cefepime 1g q24h in the interim - Urology consulted, deferred acute intervention, will follow up with patient outpatient Pressure ulcers/Hx of osteomyelitis of heels - Evaluated by wound care - discharge recs: to sacrum, apply barrier cream as needed. Right heel, clean with saline and pat dry, apply optifoam for protection. Left heel, clean with saline and pat dry. Apply Aquacel Ag and secure with optifoam. Change daily or as needed for drainage. L 2nd/3rd toes, clean with saline and paint toes with betadine. CKD/ESRD on dialysis (T,Th,S) - Consult Nephrology for dialysis management Hyperlipidemia - continue atorvastatin, 10 mg, PO, QHS T2DM - not on any oral home meds for T2DM, Glu, 150 on admission - SSI: Range 110-150, CF 50, CR 25 DVT Prophylaxis: SCD FEN/GI: dialysis renal Admission and Anticipated Discharge Date Admission Date: October 30, 2023 History of Present Illness Primary Care Provider: Tamiko Donovan, Patient is a 73 yo M w/ a PMHx of CVA, end-stage renal disease/CKD w/ failed fistula, Hx of osteomyelitis of r. and l. calcaneus, peripheral artery disease, HLD, HTN, carotid and vertebral artery disease, T2DM, vit D deficiency presents w/ concerns for recurrent blood in urine of 2 days along w/ mild dysuria. Pt first had cloudy, slightly bloody urine about 2 wks ago while in Rehab at [facility] and that is when he got his first round of antibiotics for his UTI. Now after a round of IV antibiotics and PO antibiotics patient has recurrent hematuria and mild dysuria. Patient uncertain of the antibiotics that he was on but daughter can be called for any collateral confirmation. Besides the hematuria, mild dysuria patient not having any other complaints. Allergies Allergy/AdvReac Type Severity Reaction Status Date / Time amlodipine AdvReac Severe FLU Verified 05/23/23 08:04 [facility] Home Medications Medication Instructions Recorded Confirmed Type vit B complx, C-iron 8 mg-folic 1 tab PO DAILY 08/17/20 10/30/23 History acid 800 mcg-D3 1,000 unit-zinc tablet (ProRenal) fludrocortisone 0.1 mg tablet 0.1 mg PO QPM 03/15/23 10/30/23 History atorvastatin 10 mg tablet 10 mg PO HS #30 tabs 04/04/23 10/30/23 Rx clopidogrel 75 mg tablet 75 mg PO DAILY #30 tabs 04/04/23 10/30/23 Rx folic acid 1 mg tablet 1 mg PO BID #60 tabs 04/04/23 10/30/23 Rx amino acids-protein hydrolysate 16 30 ml PO BID #1,920 mL 07/23/23 10/30/23 Rx gram-100 kcal/30 mL oral liquid (Liquacel) apixaban 5 mg tablet (Eliquis) 5 mg PO BID #60 tabs 09/16/23 10/30/23 Rx Past Med/Surg History Problem List Hematuria Acute osteomyelitis of right calcaneus (Acute) Acute osteomyelitis of left calcaneus (Acute) Hematoma of right lower leg PAD (peripheral artery disease) Bacteroides infection Acute osteomyelitis of right calcaneus Acute osteomyelitis of left calcaneus Heel ulceration Hyperglycemia (Acute) Encounter for pre-operative examination CVA (cerebral vascular accident) End stage renal disease (Acute) Unstageable pressure ulcer of right heel Unstageable pressure ulcer of left heel Sepsis Nonhealing wound of heel (Acute) Chronic kidney disease-mineral and bone disorder Anemia Left arm weakness (Acute) Paresthesia of left arm (Acute) Dyspnea on exertion Presence of arteriovenous fistula for hemodialysis, primary Orthostatic hypotension Carotid arterial disease (Acute) Acute ischemic stroke (Acute) Chronic cerebral ischemia Vertebral artery disease Hyperlipidemia Emphysematous pyelonephritis (Acute) Acute hypotension (Acute) Atrial fibrillation, permanent Syncope Hypoxia (Acute) Pneumonia due to 2019 novel coronavirus (Acute) Dialysis AV fistula malfunction Vitamin D deficiency (Acute) UTI (urinary tract infection) (Acute) Type 2 diabetes mellitus with complications (Acute) Obesity (Acute) Incomplete bladder emptying (Acute) Gross hematuria (Acute) Essential (primary) hypertension (Acute) Edema (Acute) Dysuria (Acute) Dyslipidemia (Acute) Diabetic nephropathy associated with type 2 diabetes mellitus (Acute) Cystitis (Acute) Arthritis (Acute) Forearm fractures, both bones, closed (Acute) Fall (Acute) Medical History CKD (chronic kidney disease) Fistula left arm Diabetes type 2, controlled ESRD (end stage renal disease) on dialysis Hypertension Surgical History S/P carotid endarterectomy History of tooth extraction History of surgery on arm Family History Mother , age 65 of cancer -uncertain type Cancer Father , in his 50s of cancer Stomach cancer Esophagus cancer Cancer Cancer of bowel Sister Kidney stone Social History Smoking Status: Never smoker Second Hand Exposure: Yes; Do You Dip or Chew Tobacco: No; Hx Alcohol Use: No Hx Substance Use: No Preferred Language: Setswana Communication Ability: Effective Communication Ability Comment: Does not read or write well per pt Visual Impairment: Limited Hearing Ability: Hard of Hearing Forestry Faculty Member Required: No Beliefs That Will Affect Care: None marital status: Current Living Situation: Family Current Living Situation Comment: daughter lives w/ patient current occupational status: retired current occupation: retired age 64 from [employer] How many Children do You have: 1 How many Children do You have Comment: Daughter takes care of patient, grandchildren also assist with care as needed. Feels Safe at Home: Yes Diet: regular during the past year weight has: decreased > 10 lbs Assistive Devices: Wheelchair Review of Systems Review of Systems: as per HPI Constitutional: no fever, no chills, no fatigue and no weakness Ear, Nose, Mouth, Throat: no nasal congestion, no nasal discharge and no sore throat Respiratory: no cough and no dyspnea Cardiovascular: + lightheadedness (when he doesn't take orthostatic hy potension meds); no chest pain and no palpitations Gastrointestinal: no abdominal pain, no nausea, no vomiting and no diarrhea/loose stools Genitourinary: + dysuria (both dysuria and hematuria st arted again after starting Abx) and + hematuria; no urinary frequency or no flank pain Hematologic / Lymphatic: no easy bleeding and no easy bruising Physical Exam Constitutional: WD/WN, vitals as above Respiratory: normal respiratory effort, lungs clear to auscultation Cardiovascular: RRR, no murmur, no edema Extremities: normal capillary refill; no pedal edema Gastrointestinal (Abdomen): normal bowel sounds, soft, nontender, no hepatosplenomegaly Percussion/Palpation: + abdomen tender (suprapubic tenderness) Psychiatric: A+Ox3, euthymic affect Genitourinary: no CVA tenderness Results & Data Results & Data Vital Signs (Past 12 Hours) Vital Signs Temp Pulse Resp BP Pulse Ox Pulse Ox O2 Del Method 11/01/23 04:04 36.6 C 80 16 128/65 93 Room Air 11/01/23 00:08 96 10/31/23 23:04 36.4 C L 81 16 128/72 97 Room Air 10/31/23 19:21 116/66 10/31/23 19:19 36.8 C 81 16 92/44 L 96 Room Air 10/31/23 19:10 Room Air O2 Del Method 11/01/23 04:04 11/01/23 00:08 Room Air 10/31/23 23:04 10/31/23 19:21 10/31/23 19:19 10/31/23 19:10 Code Status & VTE Plan VTE Prophylaxis Plan VTE Prophylaxis will be ordered: Yes
--- NOTE | 2023-11-01 06:44 | Discharge Summary ---
Date of Service November 01, 2023 Admission HPI Per Admitting Provider Patient is a 73 yo M w/ a PMHx of CVA, end-stage renal disease/CKD w/ failed fistula, Hx of osteomyelitis of r. and l. calcaneus, peripheral artery disease, HLD, HTN, carotid and vertebral artery disease, T2DM, vit D deficiency presents w/ concerns for recurrent blood in urine of 2 days along w/ mild dysuria. Pt first had cloudy, slightly bloody urine about 2 wks ago while in Rehab at [facility] and that is when he got his first round of antibiotics for his UTI. Now after a round of IV antibiotics and PO antibiotics patient has recurrent hematuria and mild dysuria. Patient uncertain of the antibiotics that he was on but daughter can be called for any collateral confirmation. Besides the hematuria, mild dysuria patient not having any other complaints. Admission Exam Per Admitting Provider Constitutional: WD/WN, vitals as above Respiratory: normal respiratory effort, lungs clear to auscultation Cardiovascular: RRR, no murmur, no edema Extremities: normal capillary refill; no pedal edema Gastrointestinal (Abdomen): normal bowel sounds, soft, nontender, no hepatosplenomegaly Percussion/Palpation: + abdomen tender (suprapubic tenderness) Psychiatric: A+Ox3, euthymic affect Genitourinary: no CVA tenderness Principal Diagnosis Hematuria, complicated UTI Discharge Data Allergies Allergy/AdvReac Type Severity Reaction Status Date / Time amlodipine AdvReac Severe FLU Verified 05/23/23 08:04 [facility] Consultations 10/30/23 21:45 ED Decision to Admit Stat 10/31/23 06:47 Consult Urology Routine 10/31/23 16:13 Consult Nephrology Routine Ordered Studies 10/30/23 18:59 CT abd pelvis wo con Urgent Hospital Course (1) Hematuria: (2) Orthostatic hypotension: (3) Hyperlipidemia: (4) Gross hematuria: (5) Cystitis: Total Time Total Time Spent Total Time Spent (In Minutes): see attending attestation Discharge Plan Discharge Items Patient Disposition: Home - Self-Care Reason For Visit: HEMATURIA Discharge Diagnosis: hematuria Activity: Resume your previous activity Non-emergency contact: Primary Care Provider and Exercise Equipment Specialist Call non-emergency contact if: you have any medication questions, your symptoms worsen and you have a fever Follow-up/Referrals: Tamiko Donovan, DO [Primary Care Provider] - Diet: Dialysis Renal Addtl Attending Provider Instructions: You were admitted to the hospital due to blood in your urine. There are multiple potential causes for this, one of which is infection. Although you seem to have minimal symptoms (ie. no burning with urination, normal white blood cell count, no fevers), your urine sample appears consistent with infection. For this reason, you were treated with . You were also seen by urology during your hospital stay - they did not feel the need for inpatient intervention but will reach out to schedule you for outpatient follow up. Please seek care if you notice any of the following symptoms: fevers, chills, worsening urinary symptoms such as burning with urination, feeling the need to urinate more frequently. Pending Studies at Discharge: Yes Studies:: Follow up on urine culture and sensitivities Stand-Alone Forms: My [facility], Smoking Cessation Medications and DC Order Prescriptions: Continued folic acid 1 mg tablet 1 mg PO BID Qty: 60 3RF Rx Instructions: NEEDS TONIGHTS DOSE atorvastatin 10 mg tablet 10 mg PO HS Qty: 30 2RF clopidogrel 75 mg tablet 75 mg PO DAILY Qty: 30 2RF Liquacel 16-100 gram-kcal/30 mL liquid 30 ml PO BID Qty: 1920 2RF Eliquis 5 mg tablet 5 mg PO BID Qty: 60 11RF ProRenal 8 mg iron-800 mcg-1,000 unit tablet 1 tab PO DAILY Rx Instructions: NEEDS TONIGHT fludrocortisone 0.1 mg tablet 0.1 mg PO QPM Rx Instructions: NEEDS TONIGHT Admission Data Admit Date/Time: 10/30/23 23:46 Attending Provider: Sylvester Bravo Admit Provider: Isabel Cotton Primary Care Provider: Tamiko Donovan Other Providers: Isabel Cotton; Alex Johnson; Kevin Marsh; Karthik Nguyen; Belle Rowley; Darren Matos; Eloisa Barton; Marcy Candelaria; Jamie Aguirre; Stephanie Roe; Terrence Pinto; Xochitl Carr; Aron Ugarte; Darren Mcdowell; Nora Martínez; Ez Vilchis; Liza Caraballo
[2023-11-01 06:57] LABS: Albumin Level 2.7 gm/dl (3.4-5.0); BUN Creatinine Ratio 9.4 (10-20); Bilirubin,Total 0.6 mg/dl (0.2-1.0); Calcium 8.5 mg/dl (8.6-10.3); Creatinine Clr Calc Pharmacy 16.4 ml/min; Est GFR (African American) 14.9 ml/min; Est GFR (Non-African American) 12.9 ml/min; Globulin 2.7 gm/dl (2.5-4.0); Phosphorus 4.2 mg/dl (2.5-4.9); Potassium 4.2 mmol/L (3.5-5.1); Total Protein 5.4 gm/dl (6.0-8.3)
[2023-11-01] MEDS: MIDODRINE HCL 2.5 MG TAB PO ONE (08:06)
--- NOTE | 2023-11-01 08:52 | Nephrology Progress Note ---
Date of Service November 01, 2023 Assessment & Plan (1) End stage renal disease: Plan: * ESRD due to DKD. Maintained on IHD at [facility]. * Outpatient Rx: TTS 3.5hours 180-optiflux Qb450 Qd800, 3K 137Na 2.5Ca; EDW 74.5 kg. * L forearm AVF has been functioning well for treatments. * Midodrine 5 mg to be given at start of treatment today * If discharge is anticipated have patient [facility] (2) Hematuria: Plan: * On Cefepime therapy * Blood cultures are NGTD * Urine culture is pendingCultures pending * Will need outpatient follow-up with urology for cystoscopy (3) Anemia: Plan: * Chronic, stable. Hgb >11. * No LA therapy required at this time. (4) Orthostatic hypotension: Plan: * Maintained on midodrine and fludrocortisone. Admission and Anticipated Discharge Date Admission Date: October 30, 2023 Subjective Mr. Blue was seen in evaluated in his hospital room this morning. He reports persistent hematuria but denies fever, flank pain, dysuria or difficulty voiding. He is scheduled for hemodialysis later this morning Review of Systems Constitutional: no fever Eyes: no problem reported Ear, Nose, Mouth, Throat: no problem reported Respiratory: no cough and no dyspnea Cardiovascular: no chest pain Gastrointestinal: no abdominal pain, no nausea, no vomiting and no diarrhea/loose stools Genitourinary: + hematuria; no dysuria or no flank pain Integumentary: no rash Physical Exam Constitutional: not in distress Eyes: PERRL, conjunctivae normal, anicteric sclerae ENMT: external ear and nose normal, oropharynx normal Neck: trachea midline, no thyromegaly Respiratory: normal respiratory effort, lungs clear to auscultation Cardiovascular: Rate/Rhythm: regular rate and regular rhythm Extremities: + edema (Trace pretibial) and + AV fistula (Positive bruit) Gastrointestinal (Abdomen): normal bowel sounds, soft, nontender, no hepatosplenomegaly Skin: no rashes, warm and dry Neurologic: Speech / Cognition: normal cognition Results & Data Vital Signs (Past 12 Hours) Vital Signs Temp Pulse Pulse Resp BP Pulse Ox Pulse Ox 11/01/23 08:20 75 11/01/23 08:20 11/01/23 07:55 36.4 C L 80 18 159/62 H 98 11/01/23 07:40 36.3 C L 104 H 16 143/77 H 98 11/01/23 07:19 11/01/23 04:04 36.6 C 80 16 128/65 93 11/01/23 00:08 96 10/31/23 23:04 36.4 C L 81 16 128/72 97 O2 Del Method O2 Del Method 11/01/23 08:20 11/01/23 08:20 Room Air 11/01/23 07:55 Room Air 11/01/23 07:40 Room Air 11/01/23 07:19 Room Air 11/01/23 04:04 Room Air 11/01/23 00:08 Room Air 10/31/23 23:04 Room Air Laboratory Results Laboratory Results - last 24 hr 10/31/23 10/31/23 10/31/23 11:55 12:27 16:57 WBC RBC Hgb 11.0 L Hct 35.1 L MCV MCH MCHC RDW Std Deviation RDW Coeff of Mukul Plt Count MPV Sodium Potassium Chloride Carbon Dioxide Anion Gap BUN Creatinine Est Cr Clr Drug Dosing Est GFR ( Amer) Est GFR (Non-Af Amer) BUN/Creatinine Ratio Glucose POC Glucose 98 93 Calcium Phosphorus Magnesium Total Bilirubin AST ALT Alkaline Phosphatase Total Protein Albumin Globulin Albumin/Globulin Ratio 10/31/23 11/01/23 11/01/23 20:06 05:54 08:23 WBC 5.92 RBC 3.39 L Hgb 9.9 L Hct 31.8 L MCV 93.8 MCH 29.2 MCHC 31.1 L RDW Std Deviation 49.9 H RDW Coeff of Mukul 14.4 Plt Count 148 MPV 10.4 Sodium 140 Potassium 4.2 Chloride 103 Carbon Dioxide 33 H Anion Gap 4 BUN 40 H D Creatinine 4.26 H D Est Cr Clr Drug Dosing 16.4 Est GFR ( Amer) 14.9 Est GFR (Non-Af Amer) 12.9 BUN/Creatinine Ratio 9.4 L Glucose 91 POC Glucose 104 H 91 Calcium 8.5 L Phosphorus 4.2 Magnesium 2.0 Total Bilirubin 0.6 AST 19 ALT 7 Alkaline Phosphatase 71 Total Protein 5.4 L Albumin 2.7 L Globulin 2.7 Albumin/Globulin Ratio 1.0 Microbiology 10/30/23 19:05 Aerobic Blood Culture - Preliminary Blood No growth in Aerobic bottle after 24 hours. Anaerobic Blood Culture - Final 10/30/23 18:52 Aerobic Blood Culture - Preliminary Blood No growth in Aerobic bottle after 24 hours. Anaerobic Blood Culture - Preliminary No growth in Anaerobic bottle after 24 hours. 10/30/23 Urine culture - pending PG Care Time/CCT Total # of Minutes Spent Total Time Spent with Patient: Total time spent is greater than 50% in coordination of care (as documented) at patient's floor/unit and/or counseling patient: Coding Level of Care Code 45902 SUB INP/OBS CARE 3/50MIN Diagnoses End stage renal disease N18.6 Hematuria R31.9 Anemia D64.9 Orthostatic hypotension I95.1
--- NOTE | 2023-11-01 12:22 | Hospitalist Progress Note ---
Date of Service November 01, 2023 Assessment & Plan (1) Hematuria: (2) Orthostatic hypotension: (3) Hyperlipidemia: (4) Gross hematuria: (5) Cystitis: Admission and Anticipated Discharge Date Admission Date: October 30, 2023 Results & Data Results & Data Vital Signs (Past 12 Hours) Vital Signs Temp Pulse Pulse Pulse Resp BP BP 11/01/23 12:00 85 105/37 L 11/01/23 11:30 91 H 130/53 L 11/01/23 11:00 92 H 108/41 L 11/01/23 10:30 91 H 134/63 11/01/23 10:00 93 H 111/64 11/01/23 09:30 81 193/79 H 11/01/23 09:17 36.5 C 83 11/01/23 08:20 75 11/01/23 08:20 11/01/23 07:55 36.4 C L 80 18 159/62 H 11/01/23 07:40 36.3 C L 104 H 16 143/77 H 11/01/23 07:19 11/01/23 04:04 36.6 C 80 16 128/65 Pulse Ox O2 Del Method O2 Del Method 11/01/23 12:00 11/01/23 11:30 11/01/23 11:00 11/01/23 10:30 11/01/23 10:00 11/01/23 09:30 11/01/23 09:17 11/01/23 08:20 11/01/23 08:20 Room Air 11/01/23 07:55 98 Room Air 11/01/23 07:40 98 Room Air 11/01/23 07:19 Room Air 11/01/23 04:04 93 Room Air Resident Activity Tracking Resident Involvement: Resident Care Provided Care Provided: Adult Hospital Medicine
--- NOTE | 2023-11-01 18:08 | Billing Data ---
Date of Service November 01, 2023 Coding Level of Care Code 11677 INP/OBS DISCH >30 MIN
--- NOTE | 2023-11-01 18:30 | Discharge Summary ---
Date of Service November 01, 2023 Admission HPI Per Admitting Provider Patient is a 73 yo M w/ a PMHx of CVA, end-stage renal disease/CKD w/ failed fistula, Hx of osteomyelitis of r. and l. calcaneus, peripheral artery disease, HLD, HTN, carotid and vertebral artery disease, T2DM, vit D deficiency presents w/ concerns for recurrent blood in urine of 2 days along w/ mild dysuria. Pt first had cloudy, slightly bloody urine about 2 wks ago while in Rehab at [facility] and that is when he got his first round of antibiotics for his UTI. Now after a round of IV antibiotics and PO antibiotics patient has recurrent hematuria and mild dysuria. Patient uncertain of the antibiotics that he was on but daughter can be called for any collateral confirmation. Besides the hematuria, mild dysuria patient not having any other complaints. Admission Exam Per Admitting Provider Physical Exam Constitutional: WD/WN, vitals as above Respiratory: normal respiratory effort, lungs clear to auscultation Cardiovascular: RRR, no murmur, no edema Extremities: normal capillary refill; no pedal edema Gastrointestinal (Abdomen): normal bowel sounds, soft, nontender, no hepatosplenomegaly Percussion/Palpation: + abdomen tender (suprapubic tenderness) Psychiatric: A+Ox3, euthymic affect Genitourinary: no CVA tenderness Principal Diagnosis Hematuria, complicated UTI Discharge Exam Constitutional WD/WN, vitals as above Respiratory normal respiratory effort, lungs clear to auscultation Cardiovascular RRR, no murmur, no edema Extremities: normal capillary refill and + AV fistula; no calf tenderness and no pedal edema Gastrointestinal (Abdomen) normal bowel sounds, soft, nontender, no hepatosplenomegaly Psychiatric A+Ox3, euthymic affect Genitourinary bladder normal to palpation; no CVA tenderness Discharge Data Allergies Allergy/AdvReac Type Severity Reaction Status Date / Time amlodipine AdvReac Severe FLU Verified 05/23/23 08:04 SYMPTONS Consultations 10/30/23 21:45 ED Decision to Admit Stat 10/31/23 06:47 Consult Urology Routine 10/31/23 16:13 Consult Nephrology Routine Ordered Studies 10/30/23 18:59 CT abd pelvis wo con Urgent Hospital Course (1) Hematuria: (2) Orthostatic hypotension: (3) Hyperlipidemia: (4) Gross hematuria: (5) Cystitis: Plan Patient is a 73 yo M w/ a PMHx of CVA, end-stage renal disease/CKD w/ failed fistula, Hx of osteomyelitis of r. and l. calcaneus, peripheral artery disease, HLD, carotid and vertebral artery disease, T2DM, vit D deficiency - presented w/ concerns for recurrent blood in urine x2 days along w/ mild dysuria. 1) UTI/Hematuria/Cystitis - recurrent blood in urine after 2 courses of antibiotics - CT-AP significant for thickening of the bladder wall, concerning for cystitis - held Eliquis and Plavix - Hgb 9.9 <-- 11.3 on admission (stable from a blood loss perspective) - UA consistent with infection; Ur Cx, + gram neg bacilli, sensitivities pending; blood cultures neg after 24 hrs, - Cefepime, 1000 mg, q12 hr during hospital stay - discharged on cefdinir, 300 mg, PO, BID for 7 days - patient can re-start his Eliquis and Plavix after kylee hematuria resolves - Urology consulted, deferred acute intervention, will follow up with patient as outpatient 2) Pressure ulcers/Hx of osteomyelitis of heels - Evaluated by wound care - discharge recs: to sacrum, apply barrier cream as needed. Right heel, clean with saline and pat dry, apply optifoam for protection. Left heel, clean with saline and pat dry. Apply Aquacel Ag and secure with optifoam. Change daily or as needed for drainage. L 2nd/3rd toes, clean with saline and paint toes with betadine. 3) CKD/ESRD on dialysis (T,Th,S) - Continue outpatient dialysis management 4) Hyperlipidemia - continue atorvastatin, 10 mg, PO, QHS 5) T2DM - not on any oral home meds for T2DM; Glu, 150 on admission - SSI: Range 110-150, CF 50, CR 25 during hospital stay Total Time Total Time Spent Total Time Spent (In Minutes): see attending attestation Discharge Plan Discharge Items Patient Disposition: Home - Self-Care Reason For Visit: HEMATURIA Discharge Diagnosis: hematuria Activity: Resume your previous activity Non-emergency contact: Primary Care Provider and Circle Edger Call non-emergency contact if: you have any medication questions, your symptoms worsen and you have a fever Follow-up/Referrals: Zion,Tamiko S., DO [Primary Care Provider] - Diet: Dialysis Renal Addtl Attending Provider Instructions: You were admitted to the hospital due to blood in your urine. There are multiple potential causes for this, one of which is infection. Although you seem to have minimal symptoms (ie. no burning with urination, normal white blood cell count, no fevers), your urine sample appears consistent with infection. For this reason, you were treated with cefepime. You were also seen by urology during your hospital stay - they did not feel the need for inpatient intervention but will reach out to schedule you for outpatient follow up. Please seek care if you notice any of the following symptoms: fevers, chills, worsening urinary symptoms such as burning with urination, feeling the need to urinate more frequently. Patient will need to take cefdinir, 300 mg, PO, twice a day for 7 days. In the event that this prescription was accidentally sent inadvertently to the pharmacy twice, please machine pecan picker only one of them and complete a singe 7-day course. Pending Studies at Discharge: Yes Studies:: Follow up on urine culture and sensitivities Stand-Alone Forms: My [facility], Smoking Cessation Medications and DC Order Prescriptions: New cefdinir 300 mg capsule 300 mg PO BID 7 Days Qty: 14 0RF Continued folic acid 1 mg tablet 1 mg PO BID Qty: 60 3RF Rx Instructions: NEEDS TONIGHTS DOSE atorvastatin 10 mg tablet 10 mg PO HS Qty: 30 2RF clopidogrel 75 mg tablet 75 mg PO DAILY Qty: 30 2RF Liquacel 16-100 gram-kcal/30 mL liquid 30 ml PO BID Qty: 1920 2RF Eliquis 5 mg tablet 5 mg PO BID Qty: 60 11RF ProRenal 8 mg iron-800 mcg-1,000 unit tablet 1 tab PO DAILY Rx Instructions: NEEDS TONIGHT fludrocortisone 0.1 mg tablet 0.1 mg PO QPM Rx Instructions: NEEDS TONIGHT Discharge Orders: Discharge Order (Routine); Ordered 11/01/23 Ordered By: Karthik Fischer Admission Data Admit Date/Time: 10/30/23 23:46 Attending Provider: Sylvester Bravo Admit Provider: Isabel Cotton Primary Care Provider: Tamiko Donovan Other Providers: Isabel Cotton; Alex Johnson; Kevin Marsh; Karthik Nguyen; Belle Rowley; Darren Matos; Eloisa Barton; Marcy Candelaria; Jamie Aguirre; Stephanie Roe; Terrence Pinto; Xochitl Carr; Aron Ugarte; Darren Mcdowell; Nora Martínez; Ez Vilchis; Liza Caraballo Other Interventions: Discharge Summary Assessment (RN) Last Done: 11/01/23 16:45 Supervising Physician Co-Signing Physician Notes Patient seen and examined, chart reviewed, case discussed with Dr. Fischer and I agree with the assessment and plan as above except as otherwise noted Labs and images reviewed 73-year-old male with history of CVA, ESRD/CKD, osteomyelitis, PAD, hyperlipidemia who presents with recurrent hematuria and cystitis. Was seen by urology, no acute intervention recommended. Will follow-up as outpatient and have a cystoscopy. UTI is nitrite negative and now growing gram-negative's. Inconsistent with Enterococcus which she has grown in the past. Patient strongly prefers discharge home rather than awaiting final cultures, and given gram-negative preliminary cultures reasonable to DC and follow-up on finals. He feels well and at his normal baseline. Day of discharge breathing is unlabored, mentating normally, no abdominal pain. No questions and concerns other than when he can go home. Discharged with cefdinir as noted. Agree with assessment and management above. Total time spent day of discharge including documentation, review of labs and images, direct patient care, and coordination of care 35 minutes
== END 2023-11-01 17:45 | disposition home or self-care (01) | DRG 689 ==
LOC: ED 18:07 → SUATTDRO 23:46 → 2N 23:46

== ENCOUNTER 2024-02-16 13:01 | Inpatient (IN) ==
--- NOTE | 2024-02-16 14:31 | Emergency Department Note ---
Impression & Plan Bleeding, Coagulopathy, Anemia, Dialysis patient ED Provider Note NAME: JENIFFER JUNIOR AGE: 73 SEX: M : 1950 ARRIVES VIA: Walk-In INFORMANT: [Patient][family] ED PROVIDER(S): [Federico Moody MD] CHIEF COMPLAINT: Bleeding HISTORY OF PRESENT ILLNESS: The patient is a 73-year-old male who takes Eliquis and Plavix. He had a dialysis catheter placed in the right chest 3 days ago. It was used 2 days ago. 3 hours ago, there was bleeding on the dressing and the bleeding was soaking through the dressing. They present for evaluation. The patient does complain of some pain at the insertion site but this is to be expected. There has been no fever. He did take his Eliquis and Plavix today, the next Eliquis dose will be later today. PMHx/PSHx/Social Hx: See Below PHYSICAL EXAM: GENERAL: Patient is in no acute distress. HEENT: No acute trauma, normocephalic atraumatic, mucous membranes moist, no nasal congestion. Chest: The patient does have a dialysis catheter on the right anterior chest wall. There is some bleeding from the insertion site, there is a clot present, the dressing is soaked. No large hematoma or contusion seen across the chest wall. NEUROLOGIC: Oriented x 3, no acute motor or sensory deficits, no focal weakness. SKIN: No jaundice, no diaphoresis. DIFFERENTIAL DIAGNOSIS: Coagulopathy, anemia, misplaced dialysis catheter, among others. EMERGENCY DEPARTMENT PROCEDURES: MEDICAL DECISION MAKING: There is no leukocytosis. The patient is anemic however, this is a chronic issue when looking back at previous testing. There is a normal platelet count. INR and PTT are are not significantly elevated. Renal panel testing shows a high creatinine consistent with his dialysis need. No electrolyte abnormality in need of emergent correction. No concerning liver enzyme elevation. Chest x- ray does not show CHF. On exam, patient had persistent oozing of blood from the insertion site of his dialysis catheter. I did consult the IV team. They spend multiple hours here trying to get the bleeding to stop. Pressure was used, a pressure dressing was used, clotting power was used, the patient continued to have oozing. The patient is going to require a hospital stay and observation here at our facility. We will continue to work with the area of bleeding. I suspect once his Eliquis wears off, the bleeding will stop. I spoke with the patient and family, I spoke with case management. The on-call hospitalist was consulted. Of note, I did speak with vascular surgery. For now, pressure is all that will be needed. There is no reason for a catheter exchange. Prior/Outside records/notes reviewed: None Imaging/x-ray results per my interpretation: Chest x-ray does not show CHF or pneumothorax, some chronic findings were seen. The dialysis catheter appears to be in proper position. Chronic Medical/Social conditions affecting care: Advanced age, Eliquis use, dialysis patient. Care/Management discussed with: Vascular surgery-Dr. Edmonds. Case management and the on-call hospitalist. Level of care consideration(s): After review of the information above and other included data: --I believe the patient requires escalation of care to admission DISPOSITION: Admission Past Med/Surg History Problem List (Updated 02/16/24 @ 20:31 by Federico Moody MD) Dialysis patient (Acute) Anemia (Acute) Coagulopathy (Acute) Bleeding (Acute) ESRD (end stage renal disease) on dialysis Encounter for pre-operative examination Vitamin D deficiency (Acute) Medical History History of CVA (cerebrovascular accident) Residual weakness, wheelchair bound (2021) Carotid arterial disease s/p left CEA 11/2022 neck CTA - no occlusion, hemodynamically significant stenosis, or dissection in the major cervical arteries Orthostatic hypotension Taking fludrocoritsone and midodrine Presence of arteriovenous fistula for hemodialysis left arm Arthritis Dialysis AV fistula malfunction CAD (coronary artery disease) Vertebral artery disease Chronic cerebral ischemia Per 11/2022 head CTA- No occlusion, hemodynamically significant stenosis, aneurysm, dissection, or arteriovenous malformation in the major intracranial arteries Paresthesia of left arm PAD (peripheral artery disease) Taking Plavix Hx of osteomyelitis B/L heels - 02/2023 History of COVID-2019- symptoms resolved Dyslipidemia Diabetic neuropathy Anemia Atrial fibrillation Taking Eliquis Last seen by CLAUDINE Cardio 07/2022 Diabetes type 2, controlled diet controlled at this time Hypertension Surgical History History of percutaneous angioplasty (11/2023) ERICKSON Guoi S/P carotid endarterectomy 2021 per records History of tooth extraction History of surgery on arm ORIF Family History Mother , age 65 of cancer -uncertain type Cancer Father , in his 50s of cancer Stomach cancer Esophagus cancer Cancer Cancer of bowel Sister Kidney stone Social History Smoking Status: Never smoker Second Hand Exposure: No; Do You Dip or Chew Tobacco: No; Hx Alcohol Use: No Hx Substance Use: No Preferred Language: Luxembourgish Communication Ability: Effective Communication Ability Comment: Does not read or write well per pt Visual Impairment: Limited Hearing Ability: Hard of Hearing Hatchery Man Required: No Beliefs That Will Affect Care: None marital status: Current Living Situation: Family Current Living Situation Comment: daughter lives w/ patient current occupational status: retired current occupation: retired age 64 from [employer] How many Children do You have: 1 How many Children do You have Comment: Daughter takes care of patient, grandchildren also assist with care as needed. Feels Safe at Home: Yes Diet: regular during the past year weight has: decreased > 10 lbs Assistive Devices: Wheelchair Allergies Allergies Allergy/AdvReac Type Severity Reaction Status Date / Time amlodipine AdvReac Severe FLU Verified 02/16/24 19:22 [facility] Meds Home Medications Medication Instructions Recorded Confirmed vit B complx, C-iron 8 mg-folic 1 tab PO DAILY 08/17/20 02/16/24 acid 800 mcg-D3 1,000 unit-zinc tablet (ProRenal) midodrine 5 mg tablet 5 mg PO TID PRN Hypotension 12/22/23 02/16/24 Previous Rx's Medication Instructions Recorded amino acids-protein hydrolysate 16 30 ml PO BID #1,920 mL 07/23/23 gram-100 kcal/30 mL oral liquid (Liquacel) apixaban 5 mg tablet (Eliquis) 5 mg PO BID #60 tabs 09/16/23 fludrocortisone 0.1 mg tablet 0.1 mg PO QPM #30 tabs 12/31/23 tramadol 50 mg tablet 50 mg PO Q8H PRN pain #10 tabs 02/06/24 amoxicillin 250 mg-potassium 1 tab PO BID #14 tabs 02/12/24 clavulanate 125 mg tablet atorvastatin 10 mg tablet 10 mg PO HS #30 tabs 02/12/24 folic acid 1 mg tablet 1 mg PO BID #60 tabs 02/12/24 clopidogrel 75 mg tablet 75 mg PO DAILY #90 tabs 02/13/24 Results & Data (ED) Vital Signs Vital Signs - 24 hr 02/16/24 13:11 02/16/24 14:00 02/16/24 14:00 Temperature 36.8 C Temperature Source Skin Pulse Rate 90 Pulse Rate [Finger] Pulse Rhythm [Finger] Pulse Strength [Finger] Respiratory Rate 18 Respiratory Effort / Characteristics Respiratory Depth Respiratory Pattern Blood Pressure 90/55 L Blood Pressure [Right Arm] Blood Pressure Mean 66 Blood Pressure Mean [Right Arm] Blood Pressure Position [Right Arm] Pulse Oximetry 99 96 96 Oxygen Delivery Method Room Air Room Air Room Air Oxygen Flow Rate Sepsis Recent Fever Within 48 Hours No Sepsis New/Unexplained Change in Mental Status No Sepsis Action Taken by Nursing No Action Required Oxygen Flow Rate - Titration Pulse Oximetry Post Tiitration 02/16/24 14:40 02/16/24 15:59 02/16/24 16:42 Temperature Temperature Source Pulse Rate Pulse Rate [Finger] 86 94 H Pulse Rhythm [Finger] Regular Pulse Strength [Finger] Normal Respiratory Rate 18 16 Respiratory Effort / Characteristics Non-Labored Non-Labored Spontaneous Respiratory Depth Normal Respiratory Pattern Regular Blood Pressure Blood Pressure [Right Arm] 129/68 130/75 Blood Pressure Mean Blood Pressure Mean [Right Arm] 88 93 Blood Pressure Position [Right Arm] Lying Lying Pulse Oximetry 96 94 87 L Oxygen Delivery Method Room Air Room Air Nasal Cannula Oxygen Flow Rate 0 Sepsis Recent Fever Within 48 Hours Sepsis New/Unexplained Change in Mental Status Sepsis Action Taken by Nursing Oxygen Flow Rate - Titration 4 Pulse Oximetry Post Tiitration 95 02/16/24 17:00 02/16/24 19:19 Temperature Temperature Source Pulse Rate 83 Pulse Rate [Finger] 89 Pulse Rhythm [Finger] Pulse Strength [Finger] Respiratory Rate 18 Respiratory Effort / Characteristics Non-Labored Spontaneous Respiratory Depth Respiratory Pattern Blood Pressure Blood Pressure [Right Arm] 105/52 L Blood Pressure Mean Blood Pressure Mean [Right Arm] 69 Blood Pressure Position [Right Arm] Lying Pulse Oximetry 98 Oxygen Delivery Method Room Air Oxygen Flow Rate Sepsis Recent Fever Within 48 Hours Sepsis New/Unexplained Change in Mental Status Sepsis Action Taken by Nursing Oxygen Flow Rate - Titration Pulse Oximetry Post Tiitration Home Medications Current Medication List: was personally reviewed by me Laboratory Data Attestation: I reviewed the patient's lab results. 02/16/24 14:25 02/16/24 14:25 Lab Results 02/16/24 Range/Units 14:25 WBC 5.79 (4.8-10.8) K/ul RBC 3.46 L (4.70-6.10) M/uL Hgb 10.4 L (14.0-18.0) g/dl Hct 32.2 L (42.0-52.0) % MCV 93.1 (80.0-100.0) fL MCH 30.1 (25.0-34.0) pg MCHC 32.3 (32.0-36.0) g/dL RDW Std Deviation 49.8 H (36.4-46.3) fL RDW Coeff of Mukul 14.6 H (11.5-14.5) % Plt Count 166 (130-400) K/uL MPV 9.9 (9.4-12.4) fL Immature Gran % (Auto) 0.3 % Neut % (Auto) 67.1 % Lymph % (Auto) 19.0 % [place] % (Auto) 10.5 % Eos % (Auto) 2.2 % Baso % (Auto) 0.9 % Neut # (Auto) 3.88 (1.40-6.50) K/uL Lymph # (Auto) 1.10 L (1.20-3.40) K/uL [place] # (Auto) 0.61 H (0.11-0.59) K/uL Eos # (Auto) 0.13 (0.00-0.50) K/uL Baso # (Auto) 0.05 (0.00-0.20) K/uL Immature Gran # (Auto) 0.02 (0.01-0.20) K/uL PT 12.2 H (9.0-12.0) Seconds INR 1.1 (0.9-1.1) APTT 30 (21-31) Seconds PTT Ratio 1.1 Sodium 142 (136-145) mmol/L Potassium 4.2 (3.5-5.1) mmol/L Chloride 104 (98-107) mmol/L Carbon Dioxide 30 (21-32) mmol/L Anion Gap 8 (3-11) BUN 47 H (6-23) mg/dl Creatinine 6.07 H* (0.6-1.4) mg/dl Est Cr Clr Drug Dosing Not Reportable eGFR 9.13 BUN/Creatinine Ratio 7.7 L (10-20) Glucose 124 H (70-99(Fasting)) mg/dl Calcium 8.9 (8.6-10.3) mg/dl Magnesium 2.3 (1.7-2.4) mg/dl Total Bilirubin 0.5 (0.2-1.0) mg/dl AST 19 (13-39) U/L ALT < 3 L (7-52) U/L Alkaline Phosphatase 83 (34-104) U/L Total Protein 6.3 (6.0-8.3) gm/dl Albumin 3.1 L (3.4-5.0) gm/dl Globulin 3.2 (2.5-4.0) gm/dl Albumin/Globulin Ratio 1.0 (0.9-2) Imaging Data Radiologist's Impression: Chest X-Ray 02/16/24 14:05 XR chest 1V portable CLINICAL HISTORY: dialysis COMPARISON STUDY: Chest CT October 31, 2021. Chest radiograph October 30, 2023. FINDINGS: Dual lumen right internal jugular dialysis catheter is in place. Vascular stent projects over the left upper chest. There is no pneumothorax. No pleural effusion is identified. There is no evidence for pulmonary edema. Mild left basilar opacity is unchanged. Cardiomegaly is unchanged. IMPRESSION: 1. Cardiomegaly without evidence for pulmonary edema. 2. No change in left basilar opacity. This favors atelectasis although an infectious process could appear similar. Continued radiographic follow-up is recommended. ACT 112: Negative or not required by law. Electronically signed by: Sukhi Bryant M.D. 02/16/2024 3:05 PM Discharge Plan Visit Data Chief Complaint: Bleeding Stated Complaint: DIALYSIS PORT BLEEDING ED Provider: Federico Moody Discharge Problem: Bleeding, Coagulopathy, Anemia, Dialysis patient Patient Disposition: Admitted As Inpatient Condition: Fair Forms Stand Alone Forms: [facility], Important Visit Information Prescriptions Prescriptions: No Action Liquacel 16-100 gram-kcal/30 mL liquid 30 ml PO BID Qty: 1920 2RF Rx Instructions: Unable to verify med at this date/time w/ family. Eliquis 5 mg tablet 5 mg PO BID Qty: 60 11RF fludrocortisone 0.1 mg tablet 0.1 mg PO QPM Qty: 30 4RF Rx Instructions: NEEDS TONIGHT amoxicillin-pot clavulanate 250-125 mg tablet 1 tab PO BID Qty: 14 0RF Rx Instructions: Start Date 02/12/24 x7 day supply folic acid 1 mg tablet 1 mg PO BID Qty: 60 3RF Rx Instructions: NEEDS TONIGHTS DOSE atorvastatin 10 mg tablet 10 mg PO HS Qty: 30 2RF clopidogrel 75 mg tablet 75 mg PO DAILY Qty: 90 3RF ProRenal 8 mg iron-800 mcg-1,000 unit tablet 1 tab PO DAILY Rx Instructions: NEEDS TONIGHT midodrine 5 mg tablet 5 mg PO TID PRN (Reason: Hypotension) Rx Instructions: as needed, gives usually on dialysis days. tramadol 50 mg tablet 50 mg PO Q8H PRN (Reason: pain) Qty: 10 0RF Referrals Referrals: Tamiko Donovan DO [Primary Care Provider] - Discharge Problem: Anemia Qualifiers: Anemia type: unspecified type Qualified Code(s): D64.9 - Anemia, unspecified
[2024-02-16 14:49] LABS: Basophils # (auto) 0.05 K/uL (0.00-0.20); Basophils % (auto) 0.9 %; Eosinophils # (auto) 0.13 K/uL (0.00-0.50); Eosinophils % (auto) 2.2 %; Hematocrit (blood only) 32.2 % (42.0-52.0); Hemoglobin 10.4 g/dl (14.0-18.0); Immature Granulocytes # (auto) 0.02 K/uL (0.01-0.20); Immature Granulocytes % (auto) 0.3 %; Mean Corpuscular Hemoglobin 30.1 pg (25.0-34.0); Mean Corpuscular Hgb Conc 32.3 g/dL (32.0-36.0); Mean Corpuscular Volume 93.1 fL (80.0-100.0); Mean Platelet Volume 9.9 fL (9.4-12.4); Monocytes # (auto) 0.61 K/uL (0.11-0.59); Monocytes % (auto) 10.5 %; Neutrophils # (auto) 3.88 K/uL (1.40-6.50); Neutrophils % (auto) 67.1 %; Platelet Count 166 K/uL (130-400); RDW Coefficient of Variation 14.6 % (11.5-14.5); RDW Standard Deviation 49.8 fL (36.4-46.3); Red Blood Count 3.46 M/uL (4.70-6.10); White Blood Count 5.79 K/ul (4.8-10.8)
--- NOTE | 2024-02-16 15:06 | XRay Report ---
XR chest 1V portable CLINICAL HISTORY: dialysis COMPARISON STUDY: Chest CT October 31, 2021. Chest radiograph October 30, 2023. FINDINGS: Dual lumen right internal jugular dialysis catheter is in place. Vascular stent projects ov er the left upper chest. There is no pneumothorax. No pleural effusion is identified. There is no cora dence for pulmonary edema. Mild left basilar opacity is unchanged. Cardiomegaly is unchanged. IMPRESSION: 1. Cardiomegaly without evidence for pulmonary edema. 2. No change in left basilar opacity. This favors atelectasis although an infectious process could ap pear similar. Continued radiographic follow-up is recommended. ACT 112: Negative or not required by law. Electronically signed by: Sukhi Bryant M.D. 02/16/2024 3:05 PM
[2024-02-16 15:31] LABS: Alanine Aminotransferase < 3 U/L (7-52); Albumin Level 3.1 gm/dl (3.4-5.0); Alkaline Phosphatase 83 U/L (34-104); Anion Gap 8 (3-11); Aspartate Aminotransferase 19 U/L (13-39); BUN Creatinine Ratio 7.7 (10-20); Bilirubin,Total 0.5 mg/dl (0.2-1.0); Blood Urea Nitrogen 47 mg/dl (6-23); Calcium 8.9 mg/dl (8.6-10.3); Carbon Dioxide 30 mmol/L (21-32); Chloride 104 mmol/L (98-107); Globulin 3.2 gm/dl (2.5-4.0); Glucose 124 mg/dl (70-99(Fasting)); Magnesium 2.3 mg/dl (1.7-2.4); Potassium 4.2 mmol/L (3.5-5.1); Sodium 142 mmol/L (136-145); Total Protein 6.3 gm/dl (6.0-8.3)
[2024-02-16 15:37] LABS: INR 1.1 (0.9-1.1); Partial Thromboplastin Ratio 1.1; Partial Thromboplastin Time 30 Seconds (21-31); Prothrombin Time 12.2 Seconds (9.0-12.0)
--- NOTE | 2024-02-16 19:59 | History & Physical Report ---
Date of Service February 16, 2024 Assessment & Plan (1) Bleeding at insertion site: (2) Chronic anticoagulation: (3) Atrial fibrillation: (4) ESRD (end stage renal disease) on dialysis: (5) Carotid arterial disease: (6) PAD (peripheral artery disease): (7) CAD (coronary artery disease): (8) Anemia in chronic kidney disease (CKD): Plan Bleeding from right upper chest wall dialysis port site- Continue pressure dressing as started in the ED Hemoglobin 10.4 Repeat H&H at 11 PM this evening Hold Eliquis dose this evening Consult vascular surgery Atrial fibrillation/CAD/PAD- Hold Plavix and apixaban until reassessed in the a.m. ESRD on HD- Consult nephrology, due for dialysis on 02/16 Continue pro renal, midodrine, folic acid, fludrocortisone History of Present Illness Chief Complaint: The patient presents to the emergency department with complaint of persistent oozing from his right sided dialysis port site that was placed 3 days ago. Primary Care Provider: Tamiko Donovan DO The patient is a 73-year-old male with a past medical history including ESRD on HD, anemia of chronic disease, atrial fibrillation on chronic apixaban, PAD, history of bilateral heel osteomyelitis, history of anemia requiring transfusion, and hyperlipidemia. He presents to the emergency department due to persistent oozing from his new right sided chest dialysis port placed 3 days ago. He has resumed his Plavix and apixaban as preprocedure Allergies Allergy/AdvReac Type Severity Reaction Status Date / Time amlodipine AdvReac Severe FLU Verified 02/16/24 19:22 [facility] Home Medications Medication Instructions Recorded Confirmed Type vit B complx, C-iron 8 mg-folic 1 tab PO DAILY 08/17/20 02/16/24 History acid 800 mcg-D3 1,000 unit-zinc tablet (ProRenal) amino acids-protein hydrolysate 16 30 ml PO BID #1,920 mL 07/23/23 02/16/24 Rx gram-100 kcal/30 mL oral liquid (Liquacel) apixaban 5 mg tablet (Eliquis) 5 mg PO BID #60 tabs 09/16/23 02/16/24 Rx midodrine 5 mg tablet 5 mg PO TID PRN Hypotension 12/22/23 02/16/24 History fludrocortisone 0.1 mg tablet 0.1 mg PO QPM #30 tabs 12/31/23 02/16/24 Rx tramadol 50 mg tablet 50 mg PO Q8H PRN pain #10 tabs 02/06/24 02/16/24 Rx amoxicillin 250 mg-potassium 1 tab PO BID #14 tabs 02/12/24 02/16/24 Rx clavulanate 125 mg tablet atorvastatin 10 mg tablet 10 mg PO HS #30 tabs 02/12/24 02/16/24 Rx folic acid 1 mg tablet 1 mg PO BID #60 tabs 02/12/24 02/16/24 Rx clopidogrel 75 mg tablet 75 mg PO DAILY #90 tabs 02/13/24 02/16/24 Rx Past Med/Surg History Problem List (Updated 02/16/24 @ 23:03 by Davon Chavira MD) Anemia in chronic kidney disease (CKD) Bleeding at insertion site Atrial fibrillation Taking Eliquis Last seen by [facility] 07/2022 Carotid arterial disease s/p left CEA 11/2022 neck CTA - no occlusion, hemodynamically significant stenosis, or dissection in the major cervical arteries PAD (peripheral artery disease) Taking Plavix CAD (coronary artery disease) Chronic anticoagulation Dialysis patient (Acute) Anemia (Acute) Coagulopathy (Acute) Bleeding (Acute) ESRD (end stage renal disease) on dialysis Encounter for pre-operative examination Vitamin D deficiency (Acute) Medical History History of CVA (cerebrovascular accident) Residual weakness, wheelchair bound (2021) Carotid arterial disease s/p left CEA 11/2022 neck CTA - no occlusion, hemodynamically significant stenosis, or dissection in the major cervical arteries Orthostatic hypotension Taking fludrocoritsone and midodrine Presence of arteriovenous fistula for hemodialysis left arm Arthritis Dialysis AV fistula malfunction CAD (coronary artery disease) Vertebral artery disease Chronic cerebral ischemia Per 11/2022 head CTA- No occlusion, hemodynamically significant stenosis, aneurysm, dissection, or arteriovenous malformation in the major intracranial arteries Paresthesia of left arm PAD (peripheral artery disease) Taking Plavix Hx of osteomyelitis B/L heels - 02/2023 History of COVID-2019- symptoms resolved Dyslipidemia Diabetic neuropathy Anemia Atrial fibrillation Taking Eliquis Last seen by [facility] 07/2022 Diabetes type 2, controlled diet controlled at this time Hypertension Surgical History History of percutaneous angioplasty (11/2023) ERICKSON Edmonds S/P carotid endarterectomy 2021 per records History of tooth extraction History of surgery on arm ORIF Family History Mother , age 65 of cancer -uncertain type Cancer Father , in his 50s of cancer Stomach cancer Esophagus cancer Cancer Cancer of bowel Sister Kidney stone Social History Smoking Status: Never smoker Second Hand Exposure: Yes; Do You Dip or Chew Tobacco: No; Hx Alcohol Use: No Hx Substance Use: No Preferred Language: Mohawk Communication Ability: Effective Communication Ability Comment: Does not read or write well per pt Visual Impairment: Limited Hearing Ability: Hard of Hearing Cylinder Inspector And Tester Required: No Beliefs That Will Affect Care: None marital status: Current Living Situation: Family Current Living Situation Comment: daughter lives w/ patient current occupational status: retired current occupation: retired age 64 from [employer] How many Children do You have: 1 How many Children do You have Comment: Daughter takes care of patient, grandchildren also assist with care as needed. Other Information That Helps Us Care for You: No Feels Safe at Home: Yes Safety Concerns: Feels Safe At This Time Diet: regular during the past year weight has: decreased > 10 lbs Assistive Devices: Glasses, Hospital Bed and Wheelchair Review of Systems Review of Systems: The patient denies chest pain, palpitations, shortness of breath, dyspnea on exertion, cough, lower extremity swelling, sore throat, fevers, chills, sweats, weight change, fatigue, nausea, vomiting, diarrhea , constipation, abdominal pain, pelvic pain, blood in urine or stool, dysuria, urinary frequency or urgency, lightheadedness, dizziness, headache, imbalance, focal or generalized weakness, numbness or tingling in arms or legs, generalized arthralgias or myalgias, back or neck pain, or night sweats. The review of systems is otherwise negative other than for that already noted above, and at least 10 systems have been reviewed. Physical Exam Physical Exam: The patient is awake, alert and oriented 3, well developed and well nourished, normocephalic and atraumatic, lying in bed and in no acute distress. HEENT--PERRL, EOMI, mucous membranes and oropharynx normal Neck--supple. No JVD. No bruits. Thyroid normal, trachea midline, no adenopathy. Heart--normal S1 and S2. No murmurs, rubs or gallops. Lungs--clear bilaterally, no respiratory distress, no accessory muscle use. Abdomen--normal bowel sounds and soft. Nontender. Nondistended, no hernias or masses, no organomegaly. Extremities--no cyanosis or clubbing. No edema. There are good distal pulses b/l. Dermatologic--port site right chest wall with pressure dressing Neurologic--cranial nerves II through XII grossly intact. Rheumatologic--normal range of motion. Psychiatric--normal affect. Results & Data Results & Data Vital Signs (Past 12 Hours) Vital Signs Temp Pulse Pulse Resp BP BP Pulse Ox 02/16/24 19:19 83 02/16/24 17:00 89 18 105/52 L 98 02/16/24 16:42 87 L 02/16/24 15:59 94 H 16 130/75 94 02/16/24 14:40 86 18 129/68 96 02/16/24 14:00 96 02/16/24 14:00 96 02/16/24 13:11 36.8 C 90 18 90/55 L 99 O2 Del Method O2 Flow Rate 02/16/24 19:19 02/16/24 17:00 Room Air 02/16/24 16:42 Nasal Cannula 0 02/16/24 15:59 Room Air 02/16/24 14:40 Room Air 02/16/24 14:00 Room Air 02/16/24 14:00 Room Air 02/16/24 13:11 Room Air Laboratory Results Laboratory Results WBC 5.79 K/ul (4.8-10.8) 02/16/24 14:25 RBC 3.46 M/uL (4.70-6.10) L 02/16/24 14:25 Hgb 10.4 g/dl (14.0-18.0) L 02/16/24 14:25 Hct 32.2 % (42.0-52.0) L 02/16/24 14:25 MCV 93.1 fL (80.0-100.0) 02/16/24 14:25 MCH 30.1 pg (25.0-34.0) 02/16/24 14:25 MCHC 32.3 g/dL (32.0-36.0) 02/16/24 14:25 RDW Std Deviation 49.8 fL (36.4-46.3) H 02/16/24 14:25 RDW Coeff of Mukul 14.6 % (11.5-14.5) H 02/16/24 14:25 Plt Count 166 K/uL (130-400) 02/16/24 14:25 MPV 9.9 fL (9.4-12.4) 02/16/24 14:25 Immature Gran % (Auto) 0.3 % 02/16/24 14:25 Neut % (Auto) 67.1 % 02/16/24 14:25 Lymph % (Auto) 19.0 % 02/16/24 14:25 Wirt % (Auto) 10.5 % 02/16/24 14:25 Eos % (Auto) 2.2 % 02/16/24 14:25 Baso % (Auto) 0.9 % 02/16/24 14:25 Neut # (Auto) 3.88 K/uL (1.40-6.50) 02/16/24 14:25 Lymph # (Auto) 1.10 K/uL (1.20-3.40) L 02/16/24 14:25 Wirt # (Auto) 0.61 K/uL (0.11-0.59) H 02/16/24 14:25 Eos # (Auto) 0.13 K/uL (0.00-0.50) 02/16/24 14:25 Baso # (Auto) 0.05 K/uL (0.00-0.20) 02/16/24 14:25 Immature Gran # (Auto) 0.02 K/uL (0.01-0.20) 02/16/24 14:25 PT 12.2 Seconds (9.0-12.0) H 02/16/24 14:25 INR 1.1 (0.9-1.1) 02/16/24 14:25 APTT 30 Seconds (21-31) 02/16/24 14:25 PTT Ratio 1.1 02/16/24 14:25 Sodium 142 mmol/L (136-145) 02/16/24 14:25 Potassium 4.2 mmol/L (3.5-5.1) 02/16/24 14:25 Chloride 104 mmol/L (98-107) 02/16/24 14:25 Carbon Dioxide 30 mmol/L (21-32) 02/16/24 14:25 Anion Gap 8 (3-11) 02/16/24 14:25 BUN 47 mg/dl (6-23) H 02/16/24 14:25 Creatinine 6.07 mg/dl (0.6-1.4) H* 02/16/24 14:25 Est Cr Clr Drug Dosing Not Reportable 02/16/24 14:25 eGFR 9.13 02/16/24 14:25 BUN/Creatinine Ratio 7.7 (10-20) L 02/16/24 14:25 Glucose 124 mg/dl (70-99(Fasting)) H 02/16/24 14:25 Calcium 8.9 mg/dl (8.6-10.3) 02/16/24 14:25 Magnesium 2.3 mg/dl (1.7-2.4) 02/16/24 14:25 Total Bilirubin 0.5 mg/dl (0.2-1.0) 02/16/24 14:25 AST 19 U/L (13-39) 02/16/24 14:25 ALT < 3 U/L (7-52) L 02/16/24 14:25 Alkaline Phosphatase 83 U/L (34-104) 02/16/24 14:25 Total Protein 6.3 gm/dl (6.0-8.3) 02/16/24 14:25 Albumin 3.1 gm/dl (3.4-5.0) L 02/16/24 14:25 Globulin 3.2 gm/dl (2.5-4.0) 02/16/24 14:25 Albumin/Globulin Ratio 1.0 (0.9-2) 02/16/24 14:25 Impressions Chest X-Ray 02/16/24 14:05 XR chest 1V portable CLINICAL HISTORY: dialysis COMPARISON STUDY: Chest CT October 31, 2021. Chest radiograph October 30, 2023. FINDINGS: Dual lumen right internal jugular dialysis catheter is in place. Vascular stent projects over the left upper chest. There is no pneumothorax. No pleural effusion is identified. There is no evidence for pulmonary edema. Mild left basilar opacity is unchanged. Cardiomegaly is unchanged. IMPRESSION: 1. Cardiomegaly without evidence for pulmonary edema. 2. No change in left basilar opacity. This favors atelectasis although an infectious process could appear similar. Continued radiographic follow-up is recommended. ACT 112: Negative or not required by law. Electronically signed by: Sukhi Bryant M.D. 02/16/2024 3:05 PM Code Status & VTE Plan Code Status Full code VTE Prophylaxis Plan VTE Prophylaxis will be ordered: Yes PG Care Time/CCT Total # of Minutes Spent Total Time Spent with Patient: Total time spent is greater than 50% in coordination of care (as documented) at patient's floor/unit and/or counseling patient: Coding Level of Care Code 14958 INT INP/OBS CARE 3/75MIN Diagnoses Bleeding at insertion site L76.82 Chronic anticoagulation Z79.01 Atrial fibrillation I48.91 ESRD (end stage renal disease) on dialysis N18.6; Z99.2 Carotid arterial disease I77.9 Carotid artery disease type: unspecified Laterality: bilateral PAD (peripheral artery disease) I73.9 CAD (coronary artery disease) I25.10 Anemia in chronic kidney disease (CKD) N18.9; D63.1 (5) Carotid arterial disease Carotid artery disease type: unspecified Laterality: bilateral Qualified Code(s): I77.9 - Disorder of arteries and arterioles, unspecified
[2024-02-16] MEDS ORDERED: ACETAMINOPHEN 325 MG TAB PO PRN (21:40)
[2024-02-16] MEDS ORDERED: ONDANSETRON INJ 2 MG/ML 2 ML VIAL IV PRN (21:40)
[2024-02-16] MEDS: traMADol HCL 50 MG TABLET PO PRN (22:35)
[2024-02-16] MEDS: FOLIC ACID 1 MG TAB PO SCH (22:36)
[2024-02-16] MEDS: ATORVASTATIN 10 MG TAB PO SCH (22:36)
[2024-02-16] MEDS: FLUDROCORTISONE ACETATE 0.1 MG TAB PO SCH (22:36)
[2024-02-16] MEDS: PROSOURCE NO CARB 30 ML/PKT PO SCH (22:37)
[2024-02-16] MEDS: LIDOCAINE 5% 1 PATCH TD STA (23:22)
[2024-02-16] MEDS: NEPHROCAPS PO ONE (23:22)
[2024-02-16 23:36] LABS: Hematocrit (blood only) 27.6 % (42.0-52.0); Hemoglobin 8.9 g/dl (14.0-18.0)
[2024-02-17 04:18] LABS: Basophils # (auto) 0.05 K/uL (0.00-0.20); Basophils % (auto) 0.9 %; Eosinophils # (auto) 0.08 K/uL (0.00-0.50); Eosinophils % (auto) 1.4 %; Hematocrit (blood only) 26.7 % (42.0-52.0); Hemoglobin 8.5 g/dl (14.0-18.0); Immature Granulocytes # (auto) 0.01 K/uL (0.01-0.20); Immature Granulocytes % (auto) 0.2 %; Mean Corpuscular Hemoglobin 29.5 pg (25.0-34.0); Mean Corpuscular Hgb Conc 31.8 g/dL (32.0-36.0); Mean Corpuscular Volume 92.7 fL (80.0-100.0); Mean Platelet Volume 9.9 fL (9.4-12.4); Monocytes # (auto) 0.63 K/uL (0.11-0.59); Monocytes % (auto) 10.8 %; Neutrophils # (auto) 3.66 K/uL (1.40-6.50); Neutrophils % (auto) 62.7 %; Platelet Count 152 K/uL (130-400); RDW Coefficient of Variation 14.6 % (11.5-14.5); RDW Standard Deviation 49.3 fL (36.4-46.3); Red Blood Count 2.88 M/uL (4.70-6.10); White Blood Count 5.83 K/ul (4.8-10.8)
[2024-02-17 04:35] LABS: Alanine Aminotransferase < 3 U/L (7-52); Albumin Level 2.8 gm/dl (3.4-5.0); Alkaline Phosphatase 69 U/L (34-104); Anion Gap 9 (3-11); Aspartate Aminotransferase 18 U/L (13-39); BUN Creatinine Ratio 7.5 (10-20); Bilirubin,Total 0.5 mg/dl (0.2-1.0); Blood Urea Nitrogen 50 mg/dl (6-23); Calcium 8.7 mg/dl (8.6-10.3); Carbon Dioxide 29 mmol/L (21-32); Chloride 103 mmol/L (98-107); Creatinine Clr Calc Pharmacy 10.5 ml/min; Globulin 2.7 gm/dl (2.5-4.0); Glucose 101 mg/dl (70-99(Fasting)); Magnesium 2.2 mg/dl (1.7-2.4); Potassium 4.1 mmol/L (3.5-5.1); Sodium 141 mmol/L (136-145); Total Protein 5.5 gm/dl (6.0-8.3)
[2024-02-17 08:48] LABS: Hematocrit (blood only) 26.9 % (42.0-52.0); Hemoglobin 8.7 g/dl (14.0-18.0)
--- NOTE | 2024-02-17 09:23 | Nephrology Consultation ---
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 Blue is a 73 year old white male who is seen at the request of the [facility] hospitalist service to provide inpatient HD and assist w/ medical management. Information for the HPI is obtained from direct patient interview and review of the EMR. 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 He dialyzes TTS at [facility] (3.5hr, F-180NR, Qb400/Qd500, 3K Ca2.5 Na 137, EDW 72.5 kg, IJ TCC - L RC AVF has been revised). His medical history is significant for AODM, atrial fibrillation, HTN, mechanical fall resulting in fracture of L radius and ulna s/p surgical repair at [facility] 10/18, COVID + 02/18, atrial fibrillation (Apixaban), BPH (Tamsulosin stopped due to orthostasis), CVA 11/20 (L frontal lobe), and history of emphysematous pyelonephritis. Mr. Blue has suffered a functional decline following his CVA. He is now bedr idden and has developed pressure ulcers on his heels. Recently on HD the arterial limb of Mr. Blue's AVF was collapsing. 02/06/24 he underwent surgical revision w/ a new end to side RC AVF above the prior site. Unfortunately the AVF was difficult to access and on 02/13/24 Mr. Blue underwent R IJ TCC insertion. Post procedure he has had chronic oozing from the catheter site and is now admitted for pressure dressing and surgical reevaluation Allergies Allergy/AdvReac Type Severity Reaction Status Date / Time amlodipine AdvReac Severe FLU Verified 02/16/24 19:22 [facility] Home Medications Medication Instructions Recorded Confirmed Type vit B complx, C-iron 8 mg-folic 1 tab PO DAILY 08/17/20 02/16/24 History acid 800 mcg-D3 1,000 unit-zinc tablet (ProRenal) amino acids-protein hydrolysate 16 30 ml PO BID #1,920 mL 07/23/23 02/16/24 Rx gram-100 kcal/30 mL oral liquid (Liquacel) apixaban 5 mg tablet (Eliquis) 5 mg PO BID #60 tabs 09/16/23 02/16/24 Rx midodrine 5 mg tablet 5 mg PO TID PRN Hypotension 12/22/23 02/16/24 History fludrocortisone 0.1 mg tablet 0.1 mg PO QPM #30 tabs 12/31/23 02/16/24 Rx tramadol 50 mg tablet 50 mg PO Q8H PRN pain #10 tabs 02/06/24 02/16/24 Rx amoxicillin 250 mg-potassium 1 tab PO BID #14 tabs 02/12/24 02/16/24 Rx clavulanate 125 mg tablet atorvastatin 10 mg tablet 10 mg PO HS #30 tabs 02/12/24 02/16/24 Rx folic acid 1 mg tablet 1 mg PO BID #60 tabs 02/12/24 02/16/24 Rx clopidogrel 75 mg tablet 75 mg PO DAILY #90 tabs 02/13/24 02/16/24 Rx Patient History Medical History History of CVA (cerebrovascular accident) Residual weakness, wheelchair bound (2021) Orthostatic hypotension Taking fludrocoritsone and midodrine Presence of arteriovenous fistula for hemodialysis left arm Arthritis Dialysis AV fistula malfunction Vertebral artery disease Chronic cerebral ischemia Per 11/2022 head CTA- No occlusion, hemodynamically significant stenosis, aneurysm, dissection, or arteriovenous malformation in the major intracranial arteries Paresthesia of left arm Hx of osteomyelitis B/L heels - 02/2023 History of COVID-2019- symptoms resolved Dyslipidemia Diabetic neuropathy Anemia Diabetes type 2, controlled diet controlled at this time Hypertension Surgical History History of percutaneous angioplasty (11/2023) ERICKSON Edmonds S/P carotid endarterectomy 2021 per records History of tooth extraction History of surgery on arm ORIF Family History Mother , age 65 of cancer -uncertain type Cancer Father , in his 50s of cancer Stomach cancer Esophagus cancer Cancer Cancer of bowel Sister Kidney stone Social History Smoking Status: Never smoker Second Hand Exposure: Yes; Do You Dip or Chew Tobacco: No; Hx Alcohol Use: No Hx Substance Use: No Preferred Language: Polish Communication Ability: Effective Communication Ability Comment: Does not read or write well per pt Visual Impairment: Limited Hearing Ability: Hard of Hearing Quality Coordinator Required: No Beliefs That Will Affect Care: None marital status: Current Living Situation: Family Current Living Situation Comment: daughter lives w/ patient current occupational status: retired current occupation: retired age 64 from [employer] How many Children do You have: 1 How many Children do You have Comment: Daughter takes care of patient, grandchildren also assist with care as needed. Other Information That Helps Us Care for You: No Feels Safe at Home: Yes Safety Concerns: Feels Safe At This Time Diet: regular during the past year weight has: decreased > 10 lbs Assistive Devices: Glasses, Hospital Bed and Wheelchair Review of Systems Constitutional: no fever Eyes: no problem reported Ear, Nose, Mouth, Throat: no problem reported Respiratory: no cough and no dyspnea Cardiovascular: no chest pain Gastrointestinal: no abdominal pain, no nausea, no vomiting and no diarrhea/loose stools Genitourinary: no dysuria or no flank pain Integumentary: no rash Physical Exam Constitutional: not in distress Eyes: PERRL, conjunctivae normal, anicteric sclerae ENMT: external ear and nose normal, oropharynx normal Neck: trachea midline, no thyromegaly Respiratory: normal respiratory effort, lungs clear to auscultation Cardiovascular: Rate/Rhythm: regular rate and regular rhythm Extremities: + edema (Trace pretibial) and + AV fistula (Positive bruit) Gastrointestinal (Abdomen): normal bowel sounds, soft, nontender, no hepatosplenomegaly Skin: no rashes, warm and dry Neurologic: Speech / Cognition: normal cognition Results & Data Vital Signs (Past 12 Hours) Vital Signs Temp Pulse Pulse Resp BP Pulse Ox Pulse Ox 02/17/24 07:17 36.5 C 80 17 124/72 97 02/17/24 03:42 36.5 C 83 18 121/63 95 02/16/24 23:31 36.4 C L 87 18 154/74 H 96 02/16/24 22:04 02/16/24 21:41 36.9 C 87 18 116/58 L 96 02/16/24 21:40 36.9 C 87 16 116/58 L 96 02/16/24 21:40 96 02/16/24 21:31 73 02/16/24 21:31 72 O2 Del Method O2 Del Method 02/17/24 07:17 Room Air 02/17/24 03:42 Room Air 02/16/24 23:31 Room Air 02/16/24 22:04 Room Air 02/16/24 21:41 Room Air 02/16/24 21:40 Room Air 02/16/24 21:40 Room Air 02/16/24 21:31 02/16/24 21:31 Laboratory Results Laboratory Results WBC 5.83 K/ul (4.8-10.8) 02/17/24 03:54 RBC 2.88 M/uL (4.70-6.10) L 02/17/24 03:54 Hgb 8.7 g/dl (14.0-18.0) L 02/17/24 08:16 Hct 26.9 % (42.0-52.0) L 02/17/24 08:16 MCV 92.7 fL (80.0-100.0) 02/17/24 03:54 MCH 29.5 pg (25.0-34.0) 02/17/24 03:54 MCHC 31.8 g/dL (32.0-36.0) L 02/17/24 03:54 RDW Std Deviation 49.3 fL (36.4-46.3) H 02/17/24 03:54 RDW Coeff of Mukul 14.6 % (11.5-14.5) H 02/17/24 03:54 Plt Count 152 K/uL (130-400) 02/17/24 03:54 MPV 9.9 fL (9.4-12.4) 02/17/24 03:54 Immature Gran % (Auto) 0.2 % 02/17/24 03:54 Neut % (Auto) 62.7 % 02/17/24 03:54 Lymph % (Auto) 24.0 % 02/17/24 03:54 Thomas % (Auto) 10.8 % 02/17/24 03:54 Eos % (Auto) 1.4 % 02/17/24 03:54 Baso % (Auto) 0.9 % 02/17/24 03:54 Neut # (Auto) 3.66 K/uL (1.40-6.50) 02/17/24 03:54 Lymph # (Auto) 1.40 K/uL (1.20-3.40) 02/17/24 03:54 Thomas # (Auto) 0.63 K/uL (0.11-0.59) H 02/17/24 03:54 Eos # (Auto) 0.08 K/uL (0.00-0.50) 02/17/24 03:54 Baso # (Auto) 0.05 K/uL (0.00-0.20) 02/17/24 03:54 Immature Gran # (Auto) 0.01 K/uL (0.01-0.20) 02/17/24 03:54 PT 12.2 Seconds (9.0-12.0) H 02/16/24 14:25 INR 1.1 (0.9-1.1) 02/16/24 14:25 APTT 30 Seconds (21-31) 02/16/24 14:25 PTT Ratio 1.1 02/16/24 14:25 Sodium 141 mmol/L (136-145) 02/17/24 03:54 Potassium 4.1 mmol/L (3.5-5.1) 02/17/24 03:54 Chloride 103 mmol/L (98-107) 02/17/24 03:54 Carbon Dioxide 29 mmol/L (21-32) 02/17/24 03:54 Anion Gap 9 (3-11) 02/17/24 03:54 BUN 50 mg/dl (6-23) H 02/17/24 03:54 Creatinine 6.68 mg/dl (0.6-1.4) H* D 02/17/24 03:54 Est Cr Clr Drug Dosing 10.5 ml/min 02/17/24 03:54 eGFR 8.14 02/17/24 03:54 BUN/Creatinine Ratio 7.5 (10-20) L 02/17/24 03:54 Glucose 101 mg/dl (70-99(Fasting)) H 02/17/24 03:54 POC Glucose 99 mg/dl (70-99) 02/17/24 05:47 Calcium 8.7 mg/dl (8.6-10.3) 02/17/24 03:54 Magnesium 2.2 mg/dl (1.7-2.4) 02/17/24 03:54 Total Bilirubin 0.5 mg/dl (0.2-1.0) 02/17/24 03:54 AST 18 U/L (13-39) 02/17/24 03:54 ALT < 3 U/L (7-52) L 02/17/24 03:54 Alkaline Phosphatase 69 U/L (34-104) 02/17/24 03:54 Total Protein 5.5 gm/dl (6.0-8.3) L 02/17/24 03:54 Albumin 2.8 gm/dl (3.4-5.0) L 02/17/24 03:54 Globulin 2.7 gm/dl (2.5-4.0) 02/17/24 03:54 Albumin/Globulin Ratio 1.0 (0.9-2) 02/17/24 03:54 Nasal Screen MRSA (PCR) Negative (Negative) 02/16/24 23:12 Blood Type A Positive 02/16/24 23:09 Antibody Screen NEGATIVE 02/16/24 23:09 Impressions Chest X-Ray 02/16/24 14:05 XR chest 1V portable CLINICAL HISTORY: dialysis COMPARISON STUDY: Chest CT October 31, 2021. Chest radiograph October 30, 2023. FINDINGS: Dual lumen right internal jugular dialysis catheter is in place. Vascular stent projects over the left upper chest. There is no pneumothorax. No pleural effusion is identified. There is no evidence for pulmonary edema. Mild left basilar opacity is unchanged. Cardiomegaly is unchanged. IMPRESSION: 1. Cardiomegaly without evidence for pulmonary edema. 2. No change in left basilar opacity. This favors atelectasis although an infectious process could appear similar. Continued radiographic follow-up is recommended. ACT 112: Negative or not required by law. Electronically signed by: Sukhi Bryant M.D. 02/16/2024 3:05 PM PG Care Time/CCT Total # of Minutes Spent Total Time Spent with Patient: Total time spent is greater than 50% in coordination of care (as documented) at patient's floor/unit and/or counseling patient: Coding Level of Care Code 72593 IN/OBS CONSULT LVL 5,80M Diagnoses ESRD (end stage renal disease) on dialysis N18.6; Z99.2 Bleeding at insertion site L76.82 Chronic anticoagulation Z79.01
[2024-02-17] MEDS: NEPHROCAPS PO SCH (09:29)
[2024-02-17] MEDS: CLOPIDOGREL BISULFATE 75 MG TAB PO SCH (10:29)
[2024-02-17] MEDS: APIXABAN 5 MG TABLET PO SCH (10:29)
--- NOTE | 2024-02-17 11:15 | Hospitalist Progress Note ---
Date of Service February 17, 2024 Assessment & Plan (1) Bleeding at insertion site: (2) Chronic anticoagulation: (3) Atrial fibrillation: (4) ESRD (end stage renal disease) on dialysis: (5) Carotid arterial disease: (6) PAD (peripheral artery disease): (7) CAD (coronary artery disease): (8) Anemia in chronic kidney disease (CKD): Plan The patient is a 73-year-old male with a past medical history including ESRD on HD, anemia of chronic disease, atrial fibrillation on chronic apixaban, PAD, history of bilateral heel osteomyelitis, history of anemia requiring transfusion, and hyperlipidemia. He presents to the emergency department due to persistent oozing from his new right sided chest dialysis port placed 3 days ago Bleeding from right upper chest wall dialysis port site- Continue pressure dressing as started in the ED Monitor H&H and transfuse if less than 8 Hold Eliquis dose this evening Vascular surgery has been consulted: Awaiting vascular surgery consult and recommendations Atrial fibrillation/CAD/PAD/history of CVA- Hold Plavix and apixaban until reassessed in the a.m. ESRD on HD- Nephrology has been consulted for dialysis: Patient is on dialysis TTS and scheduled for dialysis today Continue pro renal, midodrine, folic acid, fludrocortisone CODE STATUS: Patient is full code. Discussed with him and patient states he would like to be DNR but has full code because that is what his daughter wants. Discussed palliative care consult for family meeting and patient is in agreement with meeting with palliative care. Palliative care consulted DVT prophylaxis: Bilateral SCDs Admission and Anticipated Discharge Date Admission Date: February 16, 2024 Subjective Patient seen and examined H&P reviewed Labs reviewed Denies any chest pain or shortness of breath Denies any fever, chills, nausea, vomiting, diarrhea, abdominal pain Social history: Lives at home with daughter and her twins. Patient tells me he is bedbound and occasionally uses wheelchair due to his stroke with left-sided weakness Review of Systems Review of Systems: As per subjective Physical Exam Physical Exam: General: No acute distress Psych: Awake and alert HEENT: Anicteric sclera, moist oral mucosa CVS: Regular rate and rhythm, right-sided chest port site with pressure dressing Lungs: Bilateral air entry, no wheezing noted Abdomen: Soft, nontender, no rebound, no guarding Ext: No lower extremity edema, no calf tenderness Neuro: Left-sided weakness noted Results & Data Results & Data Vital Signs (Past 12 Hours) Vital Signs Temp Pulse Resp BP Pulse Ox O2 Del Method 02/17/24 10:40 36.7 C 95 H 17 116/66 96 Room Air 02/17/24 07:17 36.5 C 80 17 124/72 97 Room Air 02/17/24 03:42 36.5 C 83 18 121/63 95 Room Air 02/16/24 23:31 36.4 C L 87 18 154/74 H 96 Room Air Laboratory Results Laboratory Results - last 24 hr 02/16/24 02/16/24 02/17/24 23:09 23:12 02:50 WBC RBC Hgb 8.9 L Hct 27.6 L MCV MCH MCHC RDW Std Deviation RDW Coeff of Mukul Plt Count MPV Immature Gran % (Auto) Neut % (Auto) Lymph % (Auto) [place] % (Auto) Eos % (Auto) Baso % (Auto) Neut # (Auto) Lymph # (Auto) [place] # (Auto) Eos # (Auto) Baso # (Auto) Immature Gran # (Auto) Sodium Potassium Chloride Carbon Dioxide Anion Gap BUN Creatinine Est Cr Clr Drug Dosing eGFR BUN/Creatinine Ratio Glucose POC Glucose 107 H Calcium Magnesium Total Bilirubin AST ALT Alkaline Phosphatase Total Protein Albumin Globulin Albumin/Globulin Ratio Nasal Screen MRSA (PCR) Negative Blood Type A Positive Antibody Screen NEGATIVE 02/17/24 02/17/24 02/17/24 03:54 05:47 08:16 WBC 5.83 RBC 2.88 L Hgb 8.5 L 8.7 L Hct 26.7 L 26.9 L MCV 92.7 MCH 29.5 MCHC 31.8 L RDW Std Deviation 49.3 H RDW Coeff of Mukul 14.6 H Plt Count 152 MPV 9.9 Immature Gran % (Auto) 0.2 Neut % (Auto) 62.7 Lymph % (Auto) 24.0 [place] % (Auto) 10.8 Eos % (Auto) 1.4 Baso % (Auto) 0.9 Neut # (Auto) 3.66 Lymph # (Auto) 1.40 [place] # (Auto) 0.63 H Eos # (Auto) 0.08 Baso # (Auto) 0.05 Immature Gran # (Auto) 0.01 Sodium 141 Potassium 4.1 Chloride 103 Carbon Dioxide 29 Anion Gap 9 BUN 50 H Creatinine 6.68 H* D Est Cr Clr Drug Dosing 10.5 eGFR 8.14 BUN/Creatinine Ratio 7.5 L Glucose 101 H POC Glucose 99 Calcium 8.7 Magnesium 2.2 Total Bilirubin 0.5 AST 18 ALT < 3 L Alkaline Phosphatase 69 Total Protein 5.5 L Albumin 2.8 L Globulin 2.7 Albumin/Globulin Ratio 1.0 Nasal Screen MRSA (PCR) Blood Type Antibody Screen 02/17/24 02/17/24 12:35 16:43 WBC RBC Hgb Hct MCV MCH MCHC RDW Std Deviation RDW Coeff of Mukul Plt Count MPV Immature Gran % (Auto) Neut % (Auto) Lymph % (Auto) [place] % (Auto) Eos % (Auto) Baso % (Auto) Neut # (Auto) Lymph # (Auto) [place] # (Auto) Eos # (Auto) Baso # (Auto) Immature Gran # (Auto) Sodium Potassium Chloride Carbon Dioxide Anion Gap BUN Creatinine Est Cr Clr Drug Dosing eGFR BUN/Creatinine Ratio Glucose POC Glucose 97 94 Calcium Magnesium Total Bilirubin AST ALT Alkaline Phosphatase Total Protein Albumin Globulin Albumin/Globulin Ratio Nasal Screen MRSA (PCR) Blood Type Antibody Screen Diagnostic Findings Chest X-Ray 02/16/24 14:05 XR chest 1V portable CLINICAL HISTORY: dialysis COMPARISON STUDY: Chest CT October 31, 2021. Chest radiograph October 30, 2023. FINDINGS: Dual lumen right internal jugular dialysis catheter is in place. Vascular stent projects over the left upper chest. There is no pneumothorax. No pleural effusion is identified. There is no evidence for pulmonary edema. Mild l eft basilar opacity is unchanged. Cardiomegaly is unchanged. IMPRESSION: 1. Cardiomegaly without evidence for pulmonary edema. 2. No change in left basilar opacity. This favors atelectasis although an infectious process could appear similar. Continued radiographic follow-up is recommended. ACT 112: Negative or not required by law. Electronically signed by: Sukhi Bryant M.D. 02/16/2024 3:05 PM PG Care Time/CCT Total # of Minutes Spent Total Time Spent with Patient: Total time spent is greater than 50% in coordination of care (as documented) at patient's floor/unit and/or counseling patient: Coding Level of Care Code 55798 SUB INP/OBS CARE 3/50MIN Diagnoses Bleeding at insertion site L76.82 Chronic anticoagulation Z79.01 Atrial fibrillation I48.91 ESRD (end stage renal disease) on dialysis N18.6; Z99.2 Carotid arterial disease I77.9 Carotid artery disease type: unspecified Laterality: bilateral PAD (peripheral artery disease) I73.9 CAD (coronary artery disease) I25.10 Anemia in chronic kidney disease (CKD) N18.9; D63.1 (5) Carotid arterial disease Carotid artery disease type: unspecified Laterality: bilateral Qualified Code(s): I77.9 - Disorder of arteries and arterioles, unspecified
[2024-02-17] MEDS: MIDODRINE HCL 2.5 MG TAB PO PRN (12:26)
[2024-02-17] MEDS: EPOETIN ALFA 10,000 UNITS/ML VIAL IV ONE (12:30)
--- NOTE | 2024-02-17 14:03 | Consultation ---
Date of Consultation February 17, 2024 Assessment & Plan (1) ESRD (end stage renal disease) on dialysis: Pt with R IJ permcath placed 4 days ago, bleeding began yesterday. No hematoma noted. Possible this was blood that had collected under the tunnel from procedure vs disruption of his clot from movement or pulling of his permcath. No bleeding currently. Pt at increased risk of bleeding d/t apixaban and plavix. Recommend minimal R arm movement and gentle manipulation of catheter for HD access. L forearm AVF + thrill, but will order AVF US to verify patentcy throughout. History of Present Illness Reason for Consultation: bleeding from permcath site Attending Physician: Rodolfo Kong MD History of Present Illness 73 yo m with hx of ESRD on HD and multiple medical problems, seen in consultation today for bleeding from permcath insertion site. Pt states he was at home preparing to go to HD yesterday and bleeding began from his site. Permcath placed 4 days ago. Pt routinely on apixaban and plavix. Pt denies pain or CERON, fever, chest pain, SOB,a bd pain, N/V, rest pain, other complaints. Allergies Allergy/AdvReac Type Severity Reaction Status Date / Time amlodipine AdvReac Severe FLU Verified 02/16/24 19:22 [facility] Home Medications Medication Instructions Recorded Confirmed Type vit B complx, C-iron 8 mg-folic 1 tab PO DAILY 08/17/20 02/16/24 History acid 800 mcg-D3 1,000 unit-zinc tablet (ProRenal) amino acids-protein hydrolysate 16 30 ml PO BID #1,920 mL 07/23/23 02/16/24 Rx gram-100 kcal/30 mL oral liquid (Liquacel) apixaban 5 mg tablet (Eliquis) 5 mg PO BID #60 tabs 09/16/23 02/16/24 Rx midodrine 5 mg tablet 5 mg PO TID PRN Hypotension 12/22/23 02/16/24 History fludrocortisone 0.1 mg tablet 0.1 mg PO QPM #30 tabs 12/31/23 02/16/24 Rx tramadol 50 mg tablet 50 mg PO Q8H PRN pain #10 tabs 02/06/24 02/16/24 Rx amoxicillin 250 mg-potassium 1 tab PO BID #14 tabs 02/12/24 02/16/24 Rx clavulanate 125 mg tablet atorvastatin 10 mg tablet 10 mg PO HS #30 tabs 02/12/24 02/16/24 Rx folic acid 1 mg tablet 1 mg PO BID #60 tabs 02/12/24 02/16/24 Rx clopidogrel 75 mg tablet 75 mg PO DAILY #90 tabs 02/13/24 02/16/24 Rx Patient History Medical History History of CVA (cerebrovascular accident) Residual weakness, wheelchair bound (2021) Orthostatic hypotension Taking fludrocoritsone and midodrine Presence of arteriovenous fistula for hemodialysis left arm Arthritis Dialysis AV fistula malfunction Vertebral artery disease Chronic cerebral ischemia Per 11/2022 head CTA- No occlusion, hemodynamically significant stenosis, aneurysm, dissection, or arteriovenous malformation in the major intracranial arteries Paresthesia of left arm Hx of osteomyelitis B/L heels - 02/2023 History of COVID-2019- symptoms resolved Dyslipidemia Diabetic neuropathy Anemia Diabetes type 2, controlled diet controlled at this time Hypertension Surgical History History of percutaneous angioplasty (11/2023) ERICKSON Edmonds S/P carotid endarterectomy 2021 per records History of tooth extraction History of surgery on arm ORIF Family History Mother , age 65 of cancer -uncertain type Cancer Father , in his 50s of cancer Stomach cancer Esophagus cancer Cancer Cancer of bowel Sister Kidney stone Social History Smoking Status: Never smoker Second Hand Exposure: Yes; Do You Dip or Chew Tobacco: No; Hx Alcohol Use: No Hx Substance Use: No Preferred Language: Kiswahili Communication Ability: Effective Communication Ability Comment: Does not read or write well per pt Visual Impairment: Limited Hearing Ability: Hard of Hearing Parking Regulation Enforcement Officer Required: No Beliefs That Will Affect Care: None marital status: Current Living Situation: Family Current Living Situation Comment: daughter lives w/ patient current occupational status: retired current occupation: retired age 64 from [employer] How many Children do You have: 1 How many Children do You have Comment: Daughter takes care of patient, grandchildren also assist with care as needed. Other Information That Helps Us Care for You: No Feels Safe at Home: Yes Safety Concerns: Feels Safe At This Time Diet: regular during the past year weight has: decreased > 10 lbs Assistive Devices: Hospital Bed, Mechanical Lift and Wheelchair Review of Systems Review of Systems: All systems reviewed & are unremarkable except as noted in HPI & below Physical Exam Constitutional: WD/WN, vitals as above + frail appearing and comfortable; not in distress Respiratory: normal respiratory effort, lungs clear to auscultation Auscultation: + diminished lung sounds Cardiovascular: Rate/Rhythm: + irregularly irregular Vessels: + abnormal peripheral pulses Extremities: + vascular access device (R chest wall, no bleeding currently. No hematoma) and + AV fistula (L forearm AVF C/D/I grabiel, +thrill) Gastrointestinal (Abdomen): Inspection/Auscultation: abdomen normal to inspection and normal bowel sounds Percussion/Palpation: abdomen soft; abdomen nontender Skin: no rashes, warm and dry Neurologic: moves all extremities and awake; not confused Psychiatric: A+Ox3, euthymic affect Results & Data Vital Signs (Past 12 Hours) Vital Signs Temp Pulse Pulse Pulse Resp BP BP 02/17/24 13:28 86 02/17/24 12:30 85 88/52 L 02/17/24 12:15 89 88/56 L 02/17/24 12:00 86 60/40 L 02/17/24 11:30 94 H 122/67 02/17/24 11:29 95 H 123/68 02/17/24 11:23 36.9 C 86 02/17/24 10:40 36.7 C 95 H 17 116/66 02/17/24 07:17 36.5 C 80 17 124/72 02/17/24 03:42 36.5 C 83 18 121/63 Pulse Ox O2 Del Method 02/17/24 13:28 02/17/24 12:30 02/17/24 12:15 02/17/24 12:00 02/17/24 11:30 02/17/24 11:29 02/17/24 11:23 02/17/24 10:40 96 Room Air 02/17/24 07:17 97 Room Air 02/17/24 03:42 95 Room Air
--- NOTE | 2024-02-17 16:32 | Ultrasound Report ---
EXAM: US Duplex Left Upper Extremity Veins INDICATION: History Reason For Study TECHNIQUE: Grayscale, duplex and color Doppler images of a fistula in the left upper extremity obtained. COMPARISON: No relevant prior studies available. FINDINGS: Patent hemodialysis fistula. Patent basilic vein. There is a at the anastomosis is a 2.8 x 1.0 x 1.0 cm hematoma. At the anastomosis arterial flow velocities 435 cm/s. Throughout the fistula velocity is between 165 to 380 cm/s. IMPRESSION: 1. 2.8 x 1.0 x 1.0 cm hematoma at the fistula anastomosis. 2. Patent fistula. Relatively elevated flow at the anastomosis may reflect edema. ACT 112: Negative or not required by law. Electronically signed by Surekha Rivas 02-17-2024 4:32 PM
[2024-02-18 06:26] LABS: Basophils # (auto) 0.05 K/uL (0.00-0.20); Basophils % (auto) 0.8 %; Eosinophils # (auto) 0.08 K/uL (0.00-0.50); Eosinophils % (auto) 1.3 %; Hematocrit (blood only) 27.5 % (42.0-52.0); Hemoglobin 8.7 g/dl (14.0-18.0); Immature Granulocytes # (auto) 0.03 K/uL (0.01-0.20); Immature Granulocytes % (auto) 0.5 %; Lymphocytes # (auto) 1.83 K/uL (1.20-3.40); Lymphocytes % (auto) 30.2 %; Mean Corpuscular Hgb Conc 31.6 g/dL (32.0-36.0); Mean Corpuscular Volume 94.8 fL (80.0-100.0); Mean Platelet Volume 9.9 fL (9.4-12.4); Monocytes # (auto) 0.66 K/uL (0.11-0.59); Monocytes % (auto) 10.9 %; Neutrophils % (auto) 56.3 %; Platelet Count 168 K/uL (130-400); RDW Coefficient of Variation 14.9 % (11.5-14.5); RDW Standard Deviation 51.6 fL (36.4-46.3); White Blood Count 6.05 K/ul (4.8-10.8)
[2024-02-18 06:47] LABS: Alanine Aminotransferase < 3 U/L (7-52); Albumin Level 2.9 gm/dl (3.4-5.0); Alkaline Phosphatase 75 U/L (34-104); Anion Gap 7 (3-11); Aspartate Aminotransferase 24 U/L (13-39); BUN Creatinine Ratio 6.1 (10-20); Bilirubin,Total 0.5 mg/dl (0.2-1.0); Blood Urea Nitrogen 26 mg/dl (6-23); Calcium 8.9 mg/dl (8.6-10.3); Carbon Dioxide 28 mmol/L (21-32); Chloride 107 mmol/L (98-107); Creatinine Clr Calc Pharmacy 16.3 ml/min; Globulin 2.8 gm/dl (2.5-4.0); Glucose 79 mg/dl (70-99(Fasting)); Potassium 4.3 mmol/L (3.5-5.1); Sodium 142 mmol/L (136-145); Total Protein 5.7 gm/dl (6.0-8.3)
--- NOTE | 2024-02-18 10:29 | Hospitalist Progress Note ---
Date of Service February 18, 2024 Assessment & Plan (1) Bleeding at insertion site: (2) Chronic anticoagulation: (3) Atrial fibrillation: (4) ESRD (end stage renal disease) on dialysis: (5) Carotid arterial disease: (6) PAD (peripheral artery disease): (7) CAD (coronary artery disease): (8) Anemia in chronic kidney disease (CKD): Plan The patient is a 73-year-old male with a past medical history including ESRD on HD, anemia of chronic disease, atrial fibrillation on chronic apixaban, PAD, history of bilateral heel osteomyelitis, history of anemia requiring transfusion, and hyperlipidemia. He presents to the emergency department due to persistent oozing from his new right sided chest dialysis port placed 3 days ago #Bleeding from right upper chest wall dialysis port #Left upper arm AV fistula #Acute blood loss anemia secondary to bleeding from dialysis port in setting of anemia of chronic kidney disease Patient was seen by vascular surgeon Dr. Edmonds H&H has been stable and is above 8 Transfuse if less than [address] Edmonds via secure chat: Discussed ultrasound of the fistula which showed hematoma. As per Dr. Edmonds, he just had recent surgeries and he is going to have a hematoma around the surgical site. It is okay for him to resume apixaban and Plavix from vascular surgery point of view. Apixaban and Plavix resume: Monitor H&H #History of CVA with left-sided weakness #Chronic atrial fibrillation #Coronary artery disease #Peripheral arterial disease Resume Plavix and apixaban per vascular surgery recommendations Continue statin Patient is active with energy home therapy #ESRD on hemodialysis Patient gets dialysis TTS Nephrology following him for dialysis Continue midodrine and fludrocortisone to avoid hypotension #Stage I bilateral heel ulcers: Present on admission Erythema noted, no skin breakdown Bilateral heel protectors in place CODE STATUS: Palliative care consult is still pending. I spoke with the patient with his daughter Lynne and granddaughter at bedside. Patient wishes to be DNR/DNI. He is okay with continuing dialysis and blood transfusions if needed. Daughter Lynne wants to respect her father's wishes. CODE STATUS changed to DNR/DNI. Support provided to patient and family during CODE STATUS discussion. DVT prophylaxis: Patient on apixaban Discharge planning likely home with resuming home PT services tomorrow after dialysis if H&H stable and no active bleeding. Care plan discussed with patient, nursing staff and daughter Lynne updated at bedside Admission and Anticipated Discharge Date Admission Date: February 16, 2024 Subjective Patient seen and examined Labs reviewed Review of Systems Review of Systems: As per subjective Physical Exam Physical Exam: General: No acute distress Psych: Awake and alert HEENT: Anicteric sclera, moist oral mucosa CVS: Regular rate and rhythm, right-sided chest port site with pressure dressing Lungs: Bilateral air entry, no wheezing noted Abdomen: Soft, nontender, no rebound, no guarding Ext: No lower extremity edema, no calf tenderness, bilateral heel stage I ulcers noted with no skin breakdown and mild erythema: Dressing intact Neuro: Left-sided weakness noted Results & Data Results & Data Vital Signs (Past 12 Hours) Vital Signs Temp Pulse Pulse Resp BP Pulse Ox O2 Del Method 02/18/24 08:44 92 H 02/18/24 07:01 36.5 C 79 17 118/67 97 Room Air 02/18/24 03:10 36.6 C 79 17 127/70 97 Room Air 02/17/24 22:57 36.7 C 87 17 105/64 94 Room Air Laboratory Results Laboratory Results - last 24 hr 02/17/24 02/17/24 02/18/24 12:35 16:43 05:35 WBC 6.05 RBC 2.90 L Hgb 8.7 L Hct 27.5 L MCV 94.8 MCH 30.0 MCHC 31.6 L RDW Std Deviation 51.6 H RDW Coeff of Mukul 14.9 H Plt Count 168 MPV 9.9 Immature Gran % (Auto) 0.5 Neut % (Auto) 56.3 Lymph % (Auto) 30.2 [place] % (Auto) 10.9 Eos % (Auto) 1.3 Baso % (Auto) 0.8 Neut # (Auto) 3.40 Lymph # (Auto) 1.83 [place] # (Auto) 0.66 H Eos # (Auto) 0.08 Baso # (Auto) 0.05 Immature Gran # (Auto) 0.03 Sodium 142 Potassium 4.3 Chloride 107 Carbon Dioxide 28 Anion Gap 7 BUN 26 H D Creatinine 4.26 H D Est Cr Clr Drug Dosing 16.3 eGFR 13.96 BUN/Creatinine Ratio 6.1 L Glucose 79 POC Glucose 97 94 Calcium 8.9 Total Bilirubin 0.5 AST 24 ALT < 3 L Alkaline Phosphatase 75 Total Protein 5.7 L Albumin 2.9 L Globulin 2.8 Albumin/Globulin Ratio 1.0 Diagnostic Findings Hemodialysis Access Duplex US 02/17/24 13:53 EXAM: US Duplex Left Upper Extremity Veins INDICATION: History Reason For Study TECHNIQUE: Grayscale, duplex and color Doppler images of a fistula in the left upper extremity obtained. COMPARISON: No relevant prior studies available. FINDINGS: Patent hemodialysis fistula. Patent basilic vein. There is a at the anastomosis is a 2.8 x 1.0 x 1.0 cm hematoma. At the anastomosis arterial flow velocities 435 cm/s. Throughout the fistula velocity is between 165 to 380 cm/s. IMPRESSION: 1. 2.8 x 1.0 x 1.0 cm hematoma at the fistula anastomosis. 2. Patent fistula. Relatively elevated flow at the anastomosis may reflect edema. ACT 112: Negative or not required by law. Electronically signed by Surekha Rivas 02-17-2024 4:32 PM PG Care Time/CCT Total # of Minutes Spent Total Time Spent with Patient: Total time spent is greater than 50% in coordination of care (as documented) at patient's floor/unit and/or counseling patient: Coding Level of Care Code 98310 SUB INP/OBS CARE 3/50MIN Diagnoses Bleeding at insertion site L76.82 Chronic anticoagulation Z79.01 Atrial fibrillation I48.91 ESRD (end stage renal disease) on dialysis N18.6; Z99.2 Carotid arterial disease I77.9 Carotid artery disease type: unspecified Laterality: bilateral PAD (peripheral artery disease) I73.9 CAD (coronary artery disease) I25.10 Anemia in chronic kidney disease (CKD) N18.9; D63.1 (5) Carotid arterial disease Carotid artery disease type: unspecified Laterality: bilateral Qualified Code(s): I77.9 - Disorder of arteries and arterioles, unspecified
--- NOTE | 2024-02-18 10:34 | Nephrology Progress Note ---
Date of Service February 18, 2024 Assessment & Plan (1) ESRD (end stage renal disease) on dialysis: Plan: * ESKD-D due to DKD, FSGS * L RC AVF revision 02/06/24 * R IJ TCC insertion 02/13/24 * Volume status & electrolyte balance are acceptable. No acute indication for HD today * If discharged today, please have patient resume TTS HD at [facility]. No outpatient nephrology follow up needed. Patient will be seen during outpatient HD rounds * Outpatient HD Rx: [facility] TTS 3.5hr, F-180NR, Qb400/Qd500, 3K Ca2.5 Na 137, EDW 72.5 kg,R IJ TCC place 02/13/24 because L RC AVF has been revised (2) Bleeding at insertion site: Plan: * Resolved (3) Chronic anticoagulation: Plan: * On apixaban Admission and Anticipated Discharge Date Admission Date: February 16, 2024 Subjective Mr. Blue was evaluated in his hospital room this morning. He was dialyzed yesterday via R IJ TCC without complication. R IJ TCC has clean, dry dressing in place. Mr. Blue voices no new medical concerns Review of Systems Constitutional: no fever Eyes: no problem reported Ear, Nose, Mouth, Throat: no problem reported Respiratory: no cough and no dyspnea Cardiovascular: no chest pain Gastrointestinal: no abdominal pain, no nausea, no vomiting and no diarrhea/loose stools Genitourinary: no dysuria or no flank pain Integumentary: no rash Physical Exam Constitutional: not in distress Eyes: PERRL, conjunctivae normal, anicteric sclerae ENMT: external ear and nose normal, oropharynx normal Neck: trachea midline, no thyromegaly R IJ TCC w/ clean, dry dressing Respiratory: normal respiratory effort, lungs clear to auscultation Cardiovascular: Rate/Rhythm: regular rate and regular rhythm Extremities: + edema (Trace pretibial) and + AV fistula (Positive bruit) Gastrointestinal (Abdomen): normal bowel sounds, soft, nontender, no hepatosplenomegaly Skin: no rashes, warm and dry Neurologic: Speech / Cognition: normal cognition Results & Data Vital Signs (Past 12 Hours) Vital Signs Temp Pulse Pulse Resp BP Pulse Ox O2 Del Method 02/18/24 08:44 92 H 02/18/24 07:01 36.5 C 79 17 118/67 97 Room Air 02/18/24 03:10 36.6 C 79 17 127/70 97 Room Air 02/17/24 22:57 36.7 C 87 17 105/64 94 Room Air Laboratory Results Laboratory Results - last 24 hr 02/17/24 02/17/24 02/18/24 12:35 16:43 05:35 WBC 6.05 RBC 2.90 L Hgb 8.7 L Hct 27.5 L MCV 94.8 MCH 30.0 MCHC 31.6 L RDW Std Deviation 51.6 H RDW Coeff of Mukul 14.9 H Plt Count 168 MPV 9.9 Immature Gran % (Auto) 0.5 Neut % (Auto) 56.3 Lymph % (Auto) 30.2 [place] % (Auto) 10.9 Eos % (Auto) 1.3 Baso % (Auto) 0.8 Neut # (Auto) 3.40 Lymph # (Auto) 1.83 [place] # (Auto) 0.66 H Eos # (Auto) 0.08 Baso # (Auto) 0.05 Immature Gran # (Auto) 0.03 Sodium 142 Potassium 4.3 Chloride 107 Carbon Dioxide 28 Anion Gap 7 BUN 26 H D Creatinine 4.26 H D Est Cr Clr Drug Dosing 16.3 eGFR 13.96 BUN/Creatinine Ratio 6.1 L Glucose 79 POC Glucose 97 94 Calcium 8.9 Total Bilirubin 0.5 AST 24 ALT < 3 L Alkaline Phosphatase 75 Total Protein 5.7 L Albumin 2.9 L Globulin 2.8 Albumin/Globulin Ratio 1.0 PG Care Time/CCT Total # of Minutes Spent Total Time Spent with Patient: Total time spent is greater than 50% in coordination of care (as documented) at patient's floor/unit and/or counseling patient: Coding Level of Care Code 77806 SUB INP/OBS CARE 3/50MIN Diagnoses ESRD (end stage renal disease) on dialysis N18.6; Z99.2 Bleeding at insertion site L76.82 Chronic anticoagulation Z79.01
--- NOTE | 2024-02-18 11:54 | Palliative Care Consultation ---
Date of Consultation February 18, 2024 Assessment & Plan (1) Weakness generalized: (2) Palliative care by specialist: Introduced Palliative Medicine and explained our role in patient's care. Patient and/or family were receptive to palliative services for goals of care discussions. Reviewed we are different from hospice, a home health nurse visiting service. (3) Advanced care planning/counseling discussion: I met with pt face to face for 45min in HD this morning: he shares that he d parveen QOL with HD but would like to be no code as he does not want to be on life support/believes that when it is your time, it is your time. He admits to feeling isolated at home and that he "spends most of the day in my room, i am bedfast." He feels his daughter cannot accept his no code preference which she says is "choosing to ." he struggles with this bc he fears being placed on life support then shipped off to a SNF and that is not the QOL he wants. Dtr is not available to speak with me until after 330pm, and I am in clinic today so will do my best to connect with her but in meantime wanted to be sure everyone knew what I discussed with pt. He may benefit from more support at home with VNS, an aide and might be worth seeing if he can get more help through [facility], can he get a motorized wheelchair, etc. (l defer to care mgt and/or PCP office expertise for these.) I will update after speaking with dtr later today. Am heading to clinic now and available by pager if needed. (4) Discussion about advance care planning held with family member: see above Plan As above Thank you for allowing us to participate in the ongoing care of this patient. Please page with any additional concerns. Rivas Ramey DNP Director, Palliative Medicine History of Present Illness Reason for Consultation: esrd on hd, cva, bed bound, afibb Attending Physician: Rodolfo Kong MD History of Present Illness Mr Blue is a 73yo gentleman with ESRD on HD He resides at home with his family: daughter, son in law, grandchildren He has home PT x 2 days per week He reports being bedbound, life is limited to his room and while he has a wheelchair at home, he is not often taken OOB and moved around the home He has HD 3x weeks, 2x week with van transport, and Friday sessions dtr transports. per chart review: CODE STATUS: Patient is full code. Discussed with him and patient states he would like to be DNR but has full code because that is what his daughter wants. Discussed palliative care consult for family meeting and patient is in agreement with meeting with palliative care. Palliative care consulted Allergies Allergy/AdvReac Type Severity Reaction Status Date / Time amlodipine AdvReac Severe FLU Verified 02/16/24 19:22 [facility] Home Medications Medication Instructions Recorded Confirmed Type vit B complx, C-iron 8 mg-folic 1 tab PO DAILY 08/17/20 02/16/24 History acid 800 mcg-D3 1,000 unit-zinc tablet (ProRenal) amino acids-protein hydrolysate 16 30 ml PO BID #1,920 mL 07/23/23 02/16/24 Rx gram-100 kcal/30 mL oral liquid (Liquacel) apixaban 5 mg tablet (Eliquis) 5 mg PO BID #60 tabs 09/16/23 02/16/24 Rx midodrine 5 mg tablet 5 mg PO TID PRN Hypotension 12/22/23 02/16/24 History fludrocortisone 0.1 mg tablet 0.1 mg PO QPM #30 tabs 12/31/23 02/16/24 Rx tramadol 50 mg tablet 50 mg PO Q8H PRN pain #10 tabs 02/06/24 02/16/24 Rx amoxicillin 250 mg-potassium 1 tab PO BID #14 tabs 02/12/24 02/16/24 Rx clavulanate 125 mg tablet atorvastatin 10 mg tablet 10 mg PO HS #30 tabs 02/12/24 02/16/24 Rx folic acid 1 mg tablet 1 mg PO BID #60 tabs 02/12/24 02/16/24 Rx clopidogrel 75 mg tablet 75 mg PO DAILY #90 tabs 02/13/24 02/16/24 Rx Patient History Medical History History of CVA (cerebrovascular accident) Residual weakness, wheelchair bound (2021) Orthostatic hypotension Taking fludrocoritsone and midodrine Presence of arteriovenous fistula for hemodialysis left arm Arthritis Dialysis AV fistula malfunction Vertebral artery disease Chronic cerebral ischemia Per 11/2022 head CTA- No occlusion, hemodynamically significant stenosis, aneurysm, dissection, or arteriovenous malformation in the major intracranial arteries Paresthesia of left arm Hx of osteomyelitis B/L heels - 02/2023 History of COVID-2019- symptoms resolved Dyslipidemia Diabetic neuropathy Anemia Diabetes type 2, controlled diet controlled at this time Hypertension Surgical History History of percutaneous angioplasty (11/2023) CLAUDINE- Dr Edmonds S/P carotid endarterectomy 2021 per records History of tooth extraction History of surgery on arm ORIF Family History Mother , age 65 of cancer -uncertain type Cancer Father , in his 50s of cancer Stomach cancer Esophagus cancer Cancer Cancer of bowel Sister Kidney stone Social History Smoking Status: Never smoker Second Hand Exposure: Yes; Do You Dip or Chew Tobacco: No; Hx Alcohol Use: No Hx Substance Use: No Preferred Language: Jamaican Communication Ability: Effective Communication Ability Comment: Does not read or write well per pt Visual Impairment: Limited Hearing Ability: Hard of Hearing Storage Administrator Required: No Beliefs That Will Affect Care: None marital status: Current Living Situation: Family Current Living Situation Comment: daughter lives w/ patient current occupational status: retired current occupation: retired age 64 from [employer] How many Children do You have: 1 How many Children do You have Comment: Daughter takes care of patient, grandchildren also assist with care as needed. Other Information That Helps Us Care for You: No Feels Safe at Home: Yes Safety Concerns: Feels Safe At This Time Diet: regular during the past year weight has: decreased > 10 lbs Assistive Devices: Hospital Bed, Mechanical Lift and Wheelchair Review of Systems Review of Systems: All systems reviewed & are unremarkable except as noted in Subjective Physical Exam Constitutional: + ill appearing and + frail appearing Eyes: PERRL, conjunctivae normal, anicteric sclerae ENMT: Mouth: + dry oral mucous membranes Neck: trachea midline, no thyromegaly Respiratory: normal effort, no cough, no wheezing no conversational dyspnea Cardiovascular: RRR Gastrointestinal (Abdomen): normal bowel sounds, soft, nontender, no hepatosplenomegaly Musculoskeletal: gen weakness, bed bound Skin: pale, cool; +dry skin, +scattered ecchymoses Neurologic: AAox3 Results & Data Vital Signs (Past 12 Hours) Vital Signs Temp Pulse Pulse Resp BP Pulse Ox O2 Del Method 02/18/24 11:08 36.7 C 84 17 125/76 98 Room Air 02/18/24 08:44 92 H 02/18/24 07:01 36.5 C 79 17 118/67 97 Room Air 02/18/24 03:10 36.6 C 79 17 127/70 97 Room Air Laboratory Results 02/18/24 02/17/24 02/17/24 Range/Units 05:35 16:43 12:35 WBC 6.05 (4.8-10.8) K/ul RBC 2.90 L (4.70-6.10) M/uL Hgb 8.7 L (14.0-18.0) g/dl Hct 27.5 L (42.0-52.0) % MCV 94.8 (80.0-100.0) fL MCH 30.0 (25.0-34.0) pg MCHC 31.6 L (32.0-36.0) g/dL RDW Std Deviation 51.6 H (36.4-46.3) fL RDW Coeff of Mukul 14.9 H (11.5-14.5) % Plt Count 168 (130-400) K/uL MPV 9.9 (9.4-12.4) fL Immature Gran % (Auto) 0.5 % Neut % (Auto) 56.3 % Lymph % (Auto) 30.2 % [place] % (Auto) 10.9 % Eos % (Auto) 1.3 % Baso % (Auto) 0.8 % Neut # (Auto) 3.40 (1.40-6.50) K/uL Lymph # (Auto) 1.83 (1.20-3.40) K/uL [place] # (Auto) 0.66 H (0.11-0.59) K/uL Eos # (Auto) 0.08 (0.00-0.50) K/uL Baso # (Auto) 0.05 (0.00-0.20) K/uL Immature Gran # (Auto) 0.03 (0.01-0.20) K/uL PT (9.0-12.0) Seconds INR (0.9-1.1) APTT (21-31) Seconds PTT Ratio Sodium 142 (136-145) mmol/L Potassium 4.3 (3.5-5.1) mmol/L Chloride 107 (98-107) mmol/L Carbon Dioxide 28 (21-32) mmol/L Anion Gap 7 (3-11) BUN 26 H D (6-23) mg/dl Creatinine 4.26 H D (0.6-1.4) mg/dl Est Cr Clr Drug Dosing 16.3 eGFR 13.96 BUN/Creatinine Ratio 6.1 L (10-20) Glucose 79 (70-99(Fasting)) mg/dl POC Glucose 94 97 (70-99) mg/dl Calcium 8.9 (8.6-10.3) mg/dl Magnesium (1.7-2.4) mg/dl Total Bilirubin 0.5 (0.2-1.0) mg/dl AST 24 (13-39) U/L ALT < 3 L (7-52) U/L Alkaline Phosphatase 75 (34-104) U/L Total Protein 5.7 L (6.0-8.3) gm/dl Albumin 2.9 L (3.4-5.0) gm/dl Globulin 2.8 (2.5-4.0) gm/dl Albumin/Globulin Ratio 1.0 (0.9-2) Nasal Screen MRSA (PCR) (Negative) Blood Type Antibody Screen 02/17/24 02/17/24 02/17/24 Range/Units 08:16 05:47 03:54 WBC 5.83 (4.8-10.8) K/ul RBC 2.88 L (4.70-6.10) M/uL Hgb 8.7 L 8.5 L (14.0-18.0) g/dl Hct 26.9 L 26.7 L (42.0-52.0) % MCV 92.7 (80.0-100.0) fL MCH 29.5 (25.0-34.0) pg MCHC 31.8 L (32.0-36.0) g/dL RDW Std Deviation 49.3 H (36.4-46.3) fL RDW Coeff of Mkuul 14.6 H (11.5-14.5) % Plt Count 152 (130-400) K/uL MPV 9.9 (9.4-12.4) fL Immature Gran % (Auto) 0.2 % Neut % (Auto) 62.7 % Lymph % (Auto) 24.0 % [place] % (Auto) 10.8 % Eos % (Auto) 1.4 % Baso % (Auto) 0.9 % Neut # (Auto) 3.66 (1.40-6.50) K/uL Lymph # (Auto) 1.40 (1.20-3.40) K/uL [place] # (Auto) 0.63 H (0.11-0.59) K/uL Eos # (Auto) 0.08 (0.00-0.50) K/uL Baso # (Auto) 0.05 (0.00-0.20) K/uL Immature Gran # (Auto) 0.01 (0.01-0.20) K/uL PT (9.0-12.0) Seconds INR (0.9-1.1) APTT (21-31) Seconds PTT Ratio Sodium 141 (136-145) mmol/L Potassium 4.1 (3.5-5.1) mmol/L Chloride 103 (98-107) mmol/L Carbon Dioxide 29 (21-32) mmol/L Anion Gap 9 (3-11) BUN 50 H (6-23) mg/dl Creatinine 6.68 H* D (0.6-1.4) mg/dl Est Cr Clr Drug Dosing 10.5 eGFR 8.14 BUN/Creatinine Ratio 7.5 L (10-20) Glucose 101 H (70-99(Fasting)) mg/dl POC Glucose 99 (70-99) mg/dl Calcium 8.7 (8.6-10.3) mg/dl Magnesium 2.2 (1.7-2.4) mg/dl Total Bilirubin 0.5 (0.2-1.0) mg/dl AST 18 (13-39) U/L ALT < 3 L (7-52) U/L Alkaline Phosphatase 69 (34-104) U/L Total Protein 5.5 L (6.0-8.3) gm/dl Albumin 2.8 L (3.4-5.0) gm/dl Globulin 2.7 (2.5-4.0) gm/dl Albumin/Globulin Ratio 1.0 (0.9-2) Nasal Screen MRSA (PCR) (Negative) Blood Type Antibody Screen 02/17/24 02/16/24 02/16/24 Range/Units 02:50 23:12 23:09 WBC (4.8-10.8) K/ul RBC (4.70-6.10) M/uL Hgb 8.9 L (14.0-18.0) g/dl Hct 27.6 L (42.0-52.0) % MCV (80.0-100.0) fL MCH (25.0-34.0) pg MCHC (32.0-36.0) g/dL RDW Std Deviation (36.4-46.3) fL RDW Coeff of Mukul (11.5-14.5) % Plt Count (130-400) K/uL MPV (9.4-12.4) fL Immature Gran % (Auto) % Neut % (Auto) % Lymph % (Auto) % [place] % (Auto) % Eos % (Auto) % Baso % (Auto) % Neut # (Auto) (1.40-6.50) K/uL Lymph # (Auto) (1.20-3.40) K/uL [place] # (Auto) (0.11-0.59) K/uL Eos # (Auto) (0.00-0.50) K/uL Baso # (Auto) (0.00-0.20) K/uL Immature Gran # (Auto) (0.01-0.20) K/uL PT (9.0-12.0) Seconds INR (0.9-1.1) APTT (21-31) Seconds PTT Ratio Sodium (136-145) mmol/L Potassium (3.5-5.1) mmol/L Chloride (98-107) mmol/L Carbon Dioxide (21-32) mmol/L Anion Gap (3-11) BUN (6-23) mg/dl Creatinine (0.6-1.4) mg/dl Est Cr Clr Drug Dosing eGFR BUN/Creatinine Ratio (10-20) Glucose (70-99(Fasting)) mg/dl POC Glucose 107 H (70-99) mg/dl Calcium (8.6-10.3) mg/dl Magnesium (1.7-2.4) mg/dl Total Bilirubin (0.2-1.0) mg/dl AST (13-39) U/L ALT (7-52) U/L Alkaline Phosphatase (34-104) U/L Total Protein (6.0-8.3) gm/dl Albumin (3.4-5.0) gm/dl Globulin (2.5-4.0) gm/dl Albumin/Globulin Ratio (0.9-2) Nasal Screen MRSA (PCR) Negative (Negative) Blood Type A Positive Antibody Screen NEGATIVE 02/16/24 Range/Units 14:25 WBC 5.79 (4.8-10.8) K/ul RBC 3.46 L (4.70-6.10) M/uL Hgb 10.4 L (14.0-18.0) g/dl Hct 32.2 L (42.0-52.0) % MCV 93.1 (80.0-100.0) fL MCH 30.1 (25.0-34.0) pg MCHC 32.3 (32.0-36.0) g/dL RDW Std Deviation 49.8 H (36.4-46.3) fL RDW Coeff of Mukul 14.6 H (11.5-14.5) % Plt Count 166 (130-400) K/uL MPV 9.9 (9.4-12.4) fL Immature Gran % (Auto) 0.3 % Neut % (Auto) 67.1 % Lymph % (Auto) 19.0 % [place] % (Auto) 10.5 % Eos % (Auto) 2.2 % Baso % (Auto) 0.9 % Neut # (Auto) 3.88 (1.40-6.50) K/uL Lymph # (Auto) 1.10 L (1.20-3.40) K/uL [place] # (Auto) 0.61 H (0.11-0.59) K/uL Eos # (Auto) 0.13 (0.00-0.50) K/uL Baso # (Auto) 0.05 (0.00-0.20) K/uL Immature Gran # (Auto) 0.02 (0.01-0.20) K/uL PT 12.2 H (9.0-12.0) Seconds INR 1.1 (0.9-1.1) APTT 30 (21-31) Seconds PTT Ratio 1.1 Sodium 142 (136-145) mmol/L Potassium 4.2 (3.5-5.1) mmol/L Chloride 104 (98-107) mmol/L Carbon Dioxide 30 (21-32) mmol/L Anion Gap 8 (3-11) BUN 47 H (6-23) mg/dl Creatinine 6.07 H* (0.6-1.4) mg/dl Est Cr Clr Drug Dosing Not Reportable eGFR 9.13 BUN/Creatinine Ratio 7.7 L (10-20) Glucose 124 H (70-99(Fasting)) mg/dl POC Glucose (70-99) mg/dl Calcium 8.9 (8.6-10.3) mg/dl Magnesium 2.3 (1.7-2.4) mg/dl Total Bilirubin 0.5 (0.2-1.0) mg/dl AST 19 (13-39) U/L ALT < 3 L (7-52) U/L Alkaline Phosphatase 83 (34-104) U/L Total Protein 6.3 (6.0-8.3) gm/dl Albumin 3.1 L (3.4-5.0) gm/dl Globulin 3.2 (2.5-4.0) gm/dl Albumin/Globulin Ratio 1.0 (0.9-2) Nasal Screen MRSA (PCR) (Negative) Blood Type Antibody Screen Diagnostic Findings Chest X-Ray 02/16/24 14:05 XR chest 1V portable CLINICAL HISTORY: dialysis COMPARISON STUDY: Chest CT October 31, 2021. Chest radiograph October 30, 2023. FINDINGS: Dual lumen right internal jugular dialysis catheter is in place. Vascular stent projects over the left upper chest. There is no pneumothorax. No pleural effusion is identified. There is no evidence for pulmonary edema. Mild left basilar opacity is unchanged. Cardiomegaly is unchanged. IMPRESSION: 1. Cardiomegaly without evidence for pulmonary edema. 2. No change in left basilar opacity. This favors atelectasis although an infectious process could appear similar. Continued radiographic follow-up is recommended. ACT 112: Negative or not required by law. Electronically signed by: Sukhi Bryant M.D. 02/16/2024 3:05 PM Hemodialysis Access Duplex US 02/17/24 13:53 EXAM: US Duplex Left Upper Extremity Veins INDICATION: History Reason For Study TECHNIQUE: Grayscale, duplex and color Doppler images of a fistula in the left upper extremity obtained. COMPARISON: No relevant prior studies available. FINDINGS: Patent hemodialysis fistula. Patent basilic vein. There is a at the anastomosis is a 2.8 x 1.0 x 1.0 cm hematoma. At the anastomosis arterial flow velocities 435 cm/s. Throughout the fistula velocity is between 165 to 380 cm/s. IMPRESSION: 1. 2.8 x 1.0 x 1.0 cm hematoma at the fistula anastomosis. 2. Patent fistula. Relatively elevated flow at the anastomosis may reflect edema. ACT 112: Negative or not required by law. Electronically signed by Surekha Rivas 02-17-2024 4:32 PM PG Care Time/CCT Total # of Minutes Spent Total Time Spent with Patient: Total time spent is greater than 50% in coordination of care (as documented) at patient's floor/unit and/or counseling patient: I spent 85 minutes overall addressing this case: 15 min in medical data review/discussion with referring provider(s) and/or preparation for the visit 10 min in direct interaction with the patient/exam 40 min in Advance Care Planning/Goals of Care discussions as detailed above in note (must be >16min) 10 min in subsequent review and synthesis of assessment and plan 10 min communicating with other providers regarding the patient's case: nephro, primary team, nursing, care mgt Advanced Care Planning 42090 Advanced Care Planning 30 Min 34002 Advanced Care Planning Additional 30 [place] [address] IN/OBS CONSULT LVL 3,45M (25 - SIGNIFICANT, SEPARATELY IDENTIFIABLE ) Patient Type New Medical Decision Making High Complexity Diagnoses Weakness generalized R53.1 Palliative care by specialist Z51.5 Advanced care planning/counseling discussion Z71.89 Discussion about advance care planning held with family member Z71.0 Additional Codes Advanced Care Planning - 13774 Advanced Care Planning 30 Min: 69365 Advanced Care Planning 30 Min ([id number]) Advanced Care Planning - 32387 Advanced Care Planning Additional 30 Min: 78191 Advanced Care Planning Additional 30 Min ([id number])
--- NOTE | 2024-02-18 16:31 | Hospitalist Progress Note ---
Date of Service February 18, 2024 Assessment & Plan (1) Bleeding at insertion site: (2) Chronic anticoagulation: (3) Atrial fibrillation: (4) ESRD (end stage renal disease) on dialysis: (5) Carotid arterial disease: (6) PAD (peripheral artery disease): (7) CAD (coronary artery disease): (8) Anemia in chronic kidney disease (CKD): Plan The patient is a 73-year-old male with a past medical history including ESRD on HD, anemia of chronic disease, atrial fibrillation on chronic apixaban, PAD, history of bilateral heel osteomyelitis, history of anemia requiring transfusion, and hyperlipidemia. He presents to the emergency department due to persistent oozing from his new right sided chest dialysis port placed 3 days ago Bleeding from right upper chest wall dialysis port site- Continue pressure dressing as started in the ED Monitor H&H and transfuse if less than 8 Hold Eliquis dose this evening Vascular surgery has been consulted: Awaiting vascular surgery consult and recommendations Atrial fibrillation/CAD/PAD/history of CVA- Hold Plavix and apixaban until reassessed in the a.m. ESRD on HD- Nephrology has been consulted for dialysis: Patient is on dialysis TTS and scheduled for dialysis today Continue pro renal, midodrine, folic acid, fludrocortisone CODE STATUS: Patient is full code. Discussed with him and patient states he would like to be DNR but has full code because that is what his daughter wants. Discussed palliative care consult for family meeting and patient is in agreement with meeting with palliative care. Palliative care consulted DVT prophylaxis: Bilateral SCDs Admission and Anticipated Discharge Date Admission Date: February 16, 2024 Results & Data Results & Data Vital Signs (Past 12 Hours) Vital Signs Temp Pulse Pulse Resp BP Pulse Ox O2 Del Method 02/18/24 16:10 77 02/18/24 14:54 36.7 C 74 17 117/58 L 97 Room Air 02/18/24 11:08 36.7 C 84 17 125/76 98 Room Air 02/18/24 08:44 92 H 02/18/24 07:01 36.5 C 79 17 118/67 97 Room Air PG Care Time/CCT Total # of Minutes Spent Total Time Spent with Patient: Total time spent is greater than 50% in coordination of care (as documented) at patient's floor/unit and/or counseling patient: Coding Diagnoses Bleeding at insertion site L76.82 Chronic anticoagulation Z79.01 Atrial fibrillation I48.91 ESRD (end stage renal disease) on dialysis N18.6; Z99.2 Carotid arterial disease I77.9 Carotid artery disease type: unspecified Laterality: bilateral PAD (peripheral artery disease) I73.9 CAD (coronary artery disease) I25.10 Anemia in chronic kidney disease (CKD) N18.9; D63.1 (5) Carotid arterial disease Carotid artery disease type: unspecified Laterality: bilateral Qualified Code(s): I77.9 - Disorder of arteries and arterioles, unspecified
[2024-02-19 03:34] VITALS: RESP 19
[2024-02-19 06:51] LABS: Basophils # (auto) 0.04 K/uL (0.00-0.20); Basophils % (auto) 0.7 %; Eosinophils # (auto) 0.14 K/uL (0.00-0.50); Eosinophils % (auto) 2.3 %; Hematocrit (blood only) 25.4 % (42.0-52.0); Hemoglobin 8.4 g/dl (14.0-18.0); Immature Granulocytes # (auto) 0.03 K/uL (0.01-0.20); Immature Granulocytes % (auto) 0.5 %; Lymphocytes # (auto) 1.96 K/uL (1.20-3.40); Lymphocytes % (auto) 32.3 %; Mean Corpuscular Hemoglobin 30.9 pg (25.0-34.0); Mean Corpuscular Hgb Conc 33.1 g/dL (32.0-36.0); Mean Corpuscular Volume 93.4 fL (80.0-100.0); Mean Platelet Volume 9.7 fL (9.4-12.4); Monocytes # (auto) 0.71 K/uL (0.11-0.59); Monocytes % (auto) 11.7 %; Neutrophils # (auto) 3.18 K/uL (1.40-6.50); Neutrophils % (auto) 52.5 %; Platelet Count 168 K/uL (130-400); RDW Coefficient of Variation 14.7 % (11.5-14.5); RDW Standard Deviation 50.6 fL (36.4-46.3); Red Blood Count 2.72 M/uL (4.70-6.10); White Blood Count 6.06 K/ul (4.8-10.8)
[2024-02-19 07:17] LABS: BUN Creatinine Ratio 8.5 (10-20); Calcium 8.4 mg/dl (8.6-10.3); Creatinine Clr Calc Pharmacy 11.7 ml/min; Potassium 4.1 mmol/L (3.5-5.1)
--- NOTE | 2024-02-19 09:52 | Nephrology Progress Note ---
Date of Service February 19, 2024 Assessment & Plan (1) ESRD (end stage renal disease) on dialysis: Plan: * ESKD-D due to DKD, FSGS * L RC AVF revision 02/06/24 * R IJ TCC insertion 02/13/24 * Will provide HD today according to outpatient HD orders * Suspect inpatient weights are off. Unable to provide UF due to relative hypotension today * If discharged today, please have patient resume TTS HD at [facility]. No outpatient nephrology follow up needed. Patient will be seen during outpatient HD rounds * Outpatient HD Rx: [facility] TTS 3.5hr, F-180NR, Qb400/Qd500, 3K Ca2.5 Na 137, EDW 72.5 kg,R IJ TCC place 02/13/24 because L RC AVF has been revised (2) Bleeding at insertion site: Plan: * Resolved (3) Chronic anticoagulation: Plan: * On apixaban Admission and Anticipated Discharge Date Admission Date: February 16, 2024 Subjective Mr. Blue was evaluated during HD this morning. R IJ TCC is running A-->A at Qb 300 cc/min. Dressing remains clean, dry. Mr. Blue voices no new medical concerns Review of Systems Constitutional: no fever Eyes: no problem reported Ear, Nose, Mouth, Throat: no problem reported Respiratory: no cough and no dyspnea Cardiovascular: no chest pain Gastrointestinal: no abdominal pain, no nausea, no vomiting and no diarrhea/loose stools Genitourinary: no dysuria or no flank pain Integumentary: no rash Physical Exam Constitutional: not in distress Eyes: PERRL, conjunctivae normal, anicteric sclerae ENMT: external ear and nose normal, oropharynx normal Neck: trachea midline, no thyromegaly Respiratory: normal respiratory effort, lungs clear to auscultation Cardiovascular: Rate/Rhythm: regular rate and regular rhythm Extremities: + edema (Trace pretibial) and + AV fistula (Positive bruit) Gastrointestinal (Abdomen): normal bowel sounds, soft, nontender, no hepatosplenomegaly Skin: no rashes, warm and dry Neurologic: Speech / Cognition: normal cognition Results & Data Vital Signs (Past 12 Hours) Vital Signs Temp Pulse Pulse Pulse Resp BP BP 02/19/24 09:30 87 89/49 L 02/19/24 09:00 69 133/64 02/19/24 08:45 36.5 C 69 02/19/24 07:16 36.4 C L 74 19 132/59 L 02/19/24 03:32 36.8 C 78 19 116/62 02/18/24 23:33 36.8 C 80 18 117/63 Pulse Ox O2 Del Method 02/19/24 09:30 02/19/24 09:00 02/19/24 08:45 02/19/24 07:16 96 Room Air 02/19/24 03:32 97 Room Air 02/18/24 23:33 97 Room Air Laboratory Results Laboratory Results - last 24 hr 02/19/24 06:17 WBC 6.06 RBC 2.72 L Hgb 8.4 L Hct 25.4 L MCV 93.4 MCH 30.9 MCHC 33.1 RDW Std Deviation 50.6 H RDW Coeff of Mukul 14.7 H Plt Count 168 MPV 9.7 Immature Gran % (Auto) 0.5 Neut % (Auto) 52.5 Lymph % (Auto) 32.3 [place] % (Auto) 11.7 Eos % (Auto) 2.3 Baso % (Auto) 0.7 Neut # (Auto) 3.18 Lymph # (Auto) 1.96 [place] # (Auto) 0.71 H Eos # (Auto) 0.14 Baso # (Auto) 0.04 Immature Gran # (Auto) 0.03 Sodium 143 Potassium 4.1 Chloride 109 H Carbon Dioxide 27 Anion Gap 7 BUN 50 H D Creatinine 5.91 H* D Est Cr Clr Drug Dosing 11.7 eGFR 9.43 BUN/Creatinine Ratio 8.5 L Glucose 90 Calcium 8.4 L PG Care Time/CCT Total # of Minutes Spent Total Time Spent with Patient: Total time spent is greater than 50% in coordination of care (as documented) at patient's floor/unit and/or counseling patient: Coding Level of Care Code 15306 SUB INP/OBS CARE 3/50MIN Diagnoses ESRD (end stage renal disease) on dialysis N18.6; Z99.2 Bleeding at insertion site L76.82 Chronic anticoagulation Z79.01
[2024-02-19] MEDS: EPOETIN ALFA 20,000 UNITS/ML VIAL IV ONE (12:19)
--- NOTE | 2024-02-19 13:23 | Discharge Summary ---
Discharge Summary Date of Service February 19, 2024 Principal Dx & Hospital Course #1 = Principal Diagnosis (1) Bleeding at insertion site: (2) Chronic anticoagulation: (3) Atrial fibrillation: (4) ESRD (end stage renal disease) on dialysis: (5) Carotid arterial disease: (6) PAD (peripheral artery disease): (7) CAD (coronary artery disease): (8) Anemia in chronic kidney disease (CKD): Plan Patient is a 73-year-old male with a past medical history including ESRD on HD, anemia of chronic disease, atrial fibrillation on chronic apixaban, PAD, history of bilateral heel osteomyelitis, history of anemia requiring transfusion, and hyperlipidemia. He presents to the emergency department due to persistent oozing from his new right sided chest dialysis port placed 3 days ago #Bleeding from right upper chest wall dialysis port #Left upper arm AV fistula #Acute blood loss anemia secondary to bleeding from dialysis port in setting of anemia of chronic kidney disease Patient was seen by vascular surgeon Dr. Edmonds H&H has been stable and is above [address] Edmonds via secure chat on 02/17/21: Discussed ultrasound of the fistula which showed hematoma. As per Dr. Edmonds, he just had recent surgeries and he is going to have a hematoma around the surgical site. It is okay for him to resume apixaban and Plavix from vascular surgery point of view. Apixaban and Plavix have been resumed and H&H is stable and above 8. Outpatient monitoring through PCP/hemodialysis #History of CVA with left-sided weakness #Chronic atrial fibrillation #Coronary artery disease #Peripheral arterial disease Continue Plavix and apixaban per vascular surgery recommendations Continue statin Home health services on discharge #ESRD on hemodialysis Patient gets dialysis TTS Nephrology saw him during his hospital stay for dialysis Patient received dialysis today and he will resume his outpatient dialysis schedule Continue midodrine and fludrocortisone to avoid hypotension #Stage I bilateral heel ulcers: Present on admission Erythema noted, no skin breakdown Home health services CODE STATUS: P I spoke with the patient with his daughter Lynne and granddaughter at bedside on 02/18/24. Patient wishes to be DNR/DNI. He is okay with continuing dialysis and blood transfusions if needed. Daughter Lynne wants to respect her father's wishes. CODE STATUS changed to DNR/DNI. Patient also met with palliative care team and he confirmed with them that he wishes to be DNR/DNI. Palliative care has recommended home health services/VNS services Patient seen and examined today. He has just finished hemodialysis. He denies any chest pain, shortness of breath or any bleeding. Patient is stable for discharge home with home health services. I have discussed home health services of the patient was in agreement with home health services. Have gone over the discharge care plan with the patient and his daughter Lynne on the phone and answered all their questions This discharge took greater than 30 minutes to coordinate Admission HPI Per Admitting Provider The patient is a 73-year-old male with a past medical history including ESRD on HD, anemia of chronic disease, atrial fibrillation on chronic apixaban, PAD, history of bilateral heel osteomyelitis, history of anemia requiring transfusion, and hyperlipidemia. He presents to the emergency department due to persistent oozing from his new right sided chest dialysis port placed 3 days ago. He has resumed his Plavix and apixaban as preprocedure Discharge Exam General: No acute distress Psych: Awake and alert HEENT: Anicteric sclera, moist oral mucosa CVS: Regular rate and rhythm, right-sided chest port site with pressure dressing Lungs: Bilateral air entry, no wheezing noted Abdomen: Soft, nontender, no rebound, no guarding Ext: No lower extremity edema, no calf tenderness, bilateral heel stage I ulcers noted with no skin breakdown and mild erythema Neuro: Left-sided weakness noted Discharge Plan Discharge Items Patient Disposition: Home - Home Health Services Reason For Visit: BLEEDING AROUND PORT SITE, ANEMIA Discharge Diagnosis: #Bleeding from right upper chest wall dialysis port: Resolved #Left upper arm AV fistula #Acute blood loss anemia secondary to bleeding from dialysis port in setting of anemia of chronic kidney disease #History of CVA with left-sided weakness #Chronic atrial fibrillation #Coronary artery disease #Peripheral arterial disease #ESRD on hemodialysis #Stage I bilateral heel ulcers Condition on Discharge: Fair Activity: As commented below Activity Comment: As tolerated with assistance only Non-emergency contact: Primary Care Provider Call non-emergency contact if: you have any medication questions, your symptoms worsen and you have a fever Follow-up/Referrals: Jadon Edmonds MD [Physician] - Tamiko Donovan DO [Primary Care Provider] - Diet: Dialysis Renal Diet Texture: Dental soft (bite-sized) Addtl Attending Provider Instructions: DISCHARGE INSTRUCTION TO PATIENT/FAMILY: Follow-up with your primary care provider within 1 week regarding: Posthospital discharge, medication review, medication refills and follow-up on all your medical problems Please take all your discharge medications, discharge information and discharge instructions to all your doctors appointments. Avoid all NSAIDs including ibuprofen, Motrin, Advil, Aleve, naproxen, meloxicam, Toradol, diclofenac Labs through PCP/Outpatient Hemodialysis in 1 week: CBC, CMP Resume hemodialysis on Friday//Friday at [facility] Pending Studies at Discharge: No Stand-Alone Forms: My [facility] [employer], Smoking Cessation Medications and DC Order Prescriptions: Continued Liquacel 16-100 gram-kcal/30 mL liquid 30 ml PO BID Qty: 1920 2RF Rx Instructions: Unable to verify med at this date/time w/ family. Eliquis 5 mg tablet 5 mg PO BID Qty: 60 11RF fludrocortisone 0.1 mg tablet 0.1 mg PO QPM Qty: 30 4RF Rx Instructions: NEEDS TONIGHT folic acid 1 mg tablet 1 mg PO BID Qty: 60 3RF Rx Instructions: NEEDS TONIGHTS DOSE atorvastatin 10 mg tablet 10 mg PO HS Qty: 30 2RF clopidogrel 75 mg tablet 75 mg PO DAILY Qty: 90 3RF ProRenal 8 mg iron-800 mcg-1,000 unit tablet 1 tab PO DAILY Rx Instructions: NEEDS TONIGHT midodrine 5 mg tablet 5 mg PO TID PRN (Reason: Hypotension) Rx Instructions: as needed, gives usually on dialysis days. tramadol 50 mg tablet 50 mg PO Q8H PRN (Reason: pain) Qty: 10 0RF Discontinued amoxicillin-pot clavulanate 250-125 mg tablet 1 tab PO BID Qty: 14 0RF Rx Instructions: Start Date 02/12/24 x7 day supply Discharge Orders: Discharge Order (Routine); Ordered 02/19/24 Ordered By: Rodolfo Kogn Admission Data Admit Date/Time: 02/16/24 19:58 Attending Provider: Rodolfo Kong Admit Provider: Davon Chavira Primary Care Provider: Tamiko Donovan Other Providers: Darren Mcdowell; Davon Chavira; Jadon Edmonds; Bri Peres Hospital Stay Data Consultations 02/16/24 19:58 Consult Nephrology Routine 02/16/24 20:08 ED Decision to Admit Stat 02/16/24 21:40 Consult Vascular Surgery Routine 02/17/24 11:12 Consult Palliative Care Routine Chest X-Ray 02/16/24 14:05 XR chest 1V portable CLINICAL HISTORY: dialysis COMPARISON STUDY: Chest CT October 31, 2021. Chest radiograph October 30, 2023. FINDINGS: Dual lumen right internal jugular dialysis catheter is in place. Vascular stent projects over the left upper chest. There is no pneumothorax. No pleural effusion is identified. There is no evidence for pulmonary edema. Mild left basilar opacity is unchanged. Cardiomegaly is unchanged. IMPRESSION: 1. Cardiomegaly without evidence for pulmonary edema. 2. No change in left basilar opacity. This favors atelectasis although an infectious process could appear similar. Continued radiographic follow-up is recommended. ACT 112: Negative or not required by law. Electronically signed by: Sukhi Bryant M.D. 02/16/2024 3:05 PM Hemodialysis Access Duplex US 02/17/24 13:53 EXAM: US Duplex Left Upper Extremity Veins INDICATION: History Reason For Study TECHNIQUE: Grayscale, duplex and color Doppler images of a fistula in the left upper extremity obtained. COMPARISON: No relevant prior studies available. FINDINGS: Patent hemodialysis fistula. Patent basilic vein. There is a at the anastomosis is a 2.8 x 1.0 x 1.0 cm hematoma. At the anastomosis arterial flow velocities 435 cm/s. Throughout the fistula velocity is between 165 to 380 cm/s. IMPRESSION: 1. 2.8 x 1.0 x 1.0 cm hematoma at the fistula anastomosis. 2. Patent fistula. Relatively elevated flow at the anastomosis may reflect edema. ACT 112: Negative or not required by law. Electronically signed by Surekha Rivas 02-17-2024 4:32 PM Laboratory Results - last 24 hr 02/19/24 06:17 WBC 6.06 RBC 2.72 L Hgb 8.4 L Hct 25.4 L MCV 93.4 MCH 30.9 MCHC 33.1 RDW Std Deviation 50.6 H RDW Coeff of Mukul 14.7 H Plt Count 168 MPV 9.7 Immature Gran % (Auto) 0.5 Neut % (Auto) 52.5 Lymph % (Auto) 32.3 [place] % (Auto) 11.7 Eos % (Auto) 2.3 Baso % (Auto) 0.7 Neut # (Auto) 3.18 Lymph # (Auto) 1.96 [place] # (Auto) 0.71 H Eos # (Auto) 0.14 Baso # (Auto) 0.04 Immature Gran # (Auto) 0.03 Sodium 143 Potassium 4.1 Chloride 109 H Carbon Dioxide 27 Anion Gap 7 BUN 50 H D Creatinine 5.91 H* D Est Cr Clr Drug Dosing 11.7 eGFR 9.43 BUN/Creatinine Ratio 8.5 L Glucose 90 Calcium 8.4 L Diagnostic Imagining Performed 02/17/24 13:53 US hemodialysis fistula Routine Pending Results Patient Have Any Pending Studies at Discharge: No Discharge Instructions Given to Patient (Per Discharging Provider) DISCHARGE INSTRUCTION TO PATIENT/FAMILY: Follow-up with your primary care provider within 1 week regarding: Posthospital discharge, medication review, medication refills and follow-up on all your medical problems Please take all your discharge medications, discharge information and discharge instructions to all your doctors appointments. Avoid all NSAIDs including ibuprofen, Motrin, Advil, Aleve, naproxen, meloxicam, Toradol, diclofenac Labs through PCP/Outpatient Hemodialysis in 1 week: CBC, CMP Resume hemodialysis on Friday//Friday at [facility] Total Time Total Time Spent Total Time Spent (In Minutes): 40 minutes Coding Level of Care Code 39122 INP/OBS DISCH >30 MIN Diagnoses Bleeding at insertion site L76.82 Chronic anticoagulation Z79.01 Atrial fibrillation I48.91 ESRD (end stage renal disease) on dialysis N18.6; Z99.2 Carotid arterial disease I77.9 Carotid artery disease type: unspecified Laterality: bilateral PAD (peripheral artery disease) I73.9 CAD (coronary artery disease) I25.10 Anemia in chronic kidney disease (CKD) N18.9; D63.1 Home Health Attestation I certify that this patient is under my care and that I, or a physicians casino assistant manager working with me, had a face to-face encounter that meets the home health [id number] encounter requirements with this patient. The encounter with the patient was in whole, or in part, for the following medical condition, which is the primary reason for home health care (list medical condition): #Bleeding from right upper chest wall dialysis port: Improved #Left upper arm AV fistula #Acute blood loss anemia secondary to bleeding from dialysis port in setting of anemia of chronic kidney disease #History of CVA with left-sided weakness #Chronic atrial fibrillation #Coronary artery disease #Peripheral arterial disease #ESRD on hemodialysis #Stage I bilateral heel ulcers: I certify that, based on my findings, the following services are medically necessary home health services: Nurse/PT/OT My clinical findings support the need for the above services because: Patient has a difficult time ambulating, needs monitoring of blood pressure, will need strength training, skin monitoring Further, I certify that my clinical findings support that this patient is homebound (i.e. absences from home require considerable and taxing effort and are for medical reasons or moravian services or infrequently or of short duration when for other reasons) because: Patient had a stroke with significant left-sided weakness and is mainly bed/wheelchair-bound with difficulty ambulating Certification for Home Health Services: Based on the above findings, I certify that this patient is confined to the home and needs intermittent intermediate care, physical therapy and/or speech therapy or continues to need occupational therapy. The patient is under my care, and I have initiated the establishment of the plan of care. This patient will be followed by a physician who will periodically review the plan of care.
[2024-02-19 15:39] VITALS: BP 133/68; PULSE 74; TEMP 98.2; O2SAT 98
== END 2024-02-19 17:30 | disposition home health service (06) | DRG 314 ==
LOC: ED 13:01 → SUATTDRO 19:58 → 4W 19:58